=== PATIENT | male | born 1945 | race Caucasian/White ===

== ENCOUNTER 2023-04-07 00:04 | Observation (INO) | payer MEDICARE, SELFPAY ==
[2023-04-07] VITALS (9 sets, daily range): BP systolic 107–167; BP diastolic 71–88; PULSE 54–70; RESP 10–20; TEMP 36.5–37.2; O2SAT 95–98; BMI 32.3; BMI 34.0
--- NOTE | 2023-04-07 00:27 | ED.UPPEXIN1 ---
HPI - Extremity Injury (Upper) General Chief Complaint: Abdominal Pain Stated Complaint: ABD PAIN Time Seen by Provider: 04/07/23 00:26 Source: family Mode of arrival: Wheelchair Limitations: other Exam limitations: does not have in hearing aids History of Present Illness HPI narrative: complains of pain right flank. Pain varies. Started around 9pm. emesis x 1. Feels better now. No fever or urinary symptoms Related Data Home Medications Medication Instructions Recorded Confirmed isosorbide mononitrate 30 mg 30 mg PO DAILY 04/07/23 04/07/23 tablet,extended release 24 hr lisinopril 2.5 mg tablet 2.5 mg PO DAILY 04/07/23 04/07/23 metoprolol tartrate 25 mg tablet 25 mg PO DAILY 04/07/23 04/07/23 simvastatin 20 mg tablet 20 mg PO DAILY 04/07/23 04/07/23 Previous Rx's Medication Instructions Recorded cephalexin 250 mg capsule 250 mg PO DAILY 30 days #30 caps 04/07/23 solifenacin 10 mg tablet (Vesicare) 10 mg PO DAILY #20 tabs 04/07/23 Allergies Allergy/AdvReac Type Severity Reaction Status Date / Time No Known Drug Allergies Allergy Verified 04/07/23 00:14 Review of Systems ROS Status of ROS 10 or more systems reviewed and unremarkable except as noted in history and below [facility] Medical History Surgical History (~03/2019) Social History Within the past year, how often did you have a drink containing alcohol: never Within the past year, how often did you have six or more drinks on one occasion: never Score interpretation: A score less than 4 is consistent with normal alcohol consumption. 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 Known occupational exposures/hazards: No Highest level of school completed/degree received: high school graduate Do you want help with school or training: No Are you now , , , , never or living with a partner: In a typical week, how many times do you talk on the telephone with family, friends, or neighbors: 3 or more times per week How often do you get together with friends or relatives: 3 or more times per week How often do you attend rastafarian or gnosticism services: never Do you belong to any clubs or organizations such as rastafarian groups unions, fraternal or athletic groups, or school groups: no Total score: 2 Score interpretation: A score of greater than or equal to 2 indicates the lowest level of social isolation. Little interest or pleasure in doing things: not at all Feeling down, depressed, or hopeless: not at all Feel stressed/tense/nervous/anxious/difficulty sleeping: not at all Due to disability, difficulty making decisions: No Do you think of yourself as: straight/heterosexual Gender Identity: male Exam Constitutional Vital Signs, click to edit/add: Last Vital Signs Temp 97.7 F 04/07/23 13:00 Pulse 60 04/07/23 13:00 Resp 18 04/07/23 13:00 BP 157/85 H 04/07/23 13:00 Pulse Ox 96 04/07/23 13:00 O2 Del Method Room Air 04/07/23 13:00 Common normals: no apparent distress, average body habitus, oriented x3, no limitations and healthy appearing HENMT Common normals: normocephalic and head/scalp atraumatic Eye Common normals: EOMs intact bilaterally and conjunctivae normal Respiratory Common normals: normal respiratory effort, no retractions, no use of accessory muscles and clear to auscultation bilaterally Cardio Common normals: regular rate, regular rhythm, S1 normal heart sound and S2 normal heart sound GI Other: right flank tenderness Extremity Common normals: normal to inspection and full ROM Neuro Common normals: oriented x3, moves all extremities and no focal motor deficits Psych Appearance: grossly normal Course Course Hospital Course: taken to OR for stent placement and cysto, discharged home today to follow up with urology 1-2 weeks. Vital Signs Vital signs: Vital Signs Temperature 98.9 F 04/07/23 00:14 Pulse Rate 68 04/07/23 00:14 Respiratory Rate 18 04/07/23 00:14 Blood Pressure 167/87 H 04/07/23 00:14 Pulse Oximetry 98 04/07/23 00:14 Oxygen Delivery Method Room Air 04/07/23 00:14 Temperature 97.7 F 04/07/23 13:00 Pulse Rate 60 04/07/23 13:00 Respiratory Rate 18 04/07/23 13:00 Blood Pressure 157/85 H 04/07/23 13:00 Pulse Oximetry 96 04/07/23 13:00 Oxygen Delivery Method Room Air 04/07/23 13:00 MDM - Extremity Injury (Upper) MDM Narrative Medical decision making narrative: patient presents with acute right flank pain. No past history of stones. CT demonstrates 8mm right proximal stone with hydronephrosis. UA without evidence of infection and patient is afebrile. Pain control fair with Toradol enough wherein patient could rest. Discussed with Dr Chung and he is in agreement with consulting on the patient as he feels he will need a stent. Hospitalist also in agreement about the admission Lab Data Labs: Lab Results 04/07/23 04/07/23 04/07/23 Range/Units 00:35 03:13 05:10 WBC 7.6 8.7 (4.0-11.0) 10^3/uL RBC 5.27 4.74 (4.70-6.10) 10^6/uL Hgb 16.5 14.7 (14.0-18.0) g/dL Hct 48.1 43.3 (42.0-54.0) % MCV 91.3 91.4 (80.0-94.0) fL MCH 31.3 31.0 (25.9-34.0) pg MCHC 34.3 33.9 (29.9-35.2) g/dL RDW 12.9 12.8 (11.0-15.0) % Plt Count 175 157 (150-450) 10^3/uL MPV 9.6 9.8 (9.5-13.5) fL Neut % (Auto) 70.7 82.0 H (43.0-75.0) % Lymph % (Auto) 20.1 L 11.0 L (20.5-60.0) % [place] % (Auto) 6.7 5.9 (1.7-12.0) % Eos % (Auto) 1.6 0.1 L (0.9-7.0) % Baso % (Auto) 0.5 0.5 (0.2-2.0) % Neut # (Auto) 5.4 7.1 H (1.4-6.5) 10^3/uL Lymph # (Auto) 1.5 1.0 L (1.2-3.8) 10^3/uL [place] # (Auto) 0.5 0.5 (0.3-0.8) 10^3/uL Eos # (Auto) 0.1 0.0 (0.0-0.7) 10^3/uL Baso # (Auto) 0.0 0.0 (0.0-0.1) 10^3/uL Abs Immat Gran (auto) 0.03 0.04 H (0.00-0.03) 10^3/uL Imm/Tot Granulo (auto) 0.4 0.5 (0.0-0.5) % Sodium 141 141 (136-145) mmol/L Potassium 4.4 4.4 (3.5-5.1) mmol/L Chloride 106 108 H (98-107) mmol/L Carbon Dioxide 24.6 24.3 (21.0-32.0) mmol/L Anion Gap 14.8 13.1 BUN 32.0 H 29.0 H (7.0-18.0) mg/dL Creatinine 1.64 H 1.29 (0.70-1.30) mg/dL Est GFR ( Amer) 50 L >60 (>=60) Est GFR (Non-Af Amer) 41 L 54 L (>=60) BUN/Creatinine Ratio 19.5 22.5 Glucose 142 H 125 H (74-106) mg/dL Lactate 1.6 (0.4-2.0) mmol/L Calcium 9.4 8.6 (8.5-10.1) mg/dL Total Bilirubin 0.5 0.5 (0.2-1.0) mg/dL AST 24 24 (15-37) U/L ALT 47 40 (16-63) U/L Alkaline Phosphatase 74 58 (46-116) U/L Total Protein 7.8 6.8 (6.4-8.2) g/dL Albumin 4.5 3.7 (3.4-5.0) g/dL Globulin 3.3 3.1 g/dL Albumin/Globulin Ratio 1.4 1.2 Lipase 240.0 (73.0-393.0) U/L Urine Color Yellow (YELLOW) Urine Clarity Clear (CLEAR) Urine pH 5.5 (5.0-9.0) Ur Specific [place] >=1.030 A (1.005-1.025) Urine Protein Negative (NEG/TRACE) mg/dL Urine Glucose (UA) Negative (NEGATIVE) mg/dL Urine Ketones Negative (NEGATIVE) mg/dL Urine Occult Blood Large A (NEGATIVE) Urine Nitrite Negative (NEGATIVE) Urine Bilirubin Negative (NEGATIVE) Urine Urobilinogen 0.2 (0.2-1.0) EU/dL Ur Leukocyte Esterase Negative (NEGATIVE) Urine RBC >100 A (0-2) #/HPF Urine WBC 0-2 A (NONE SEEN) #/HPF Ur Squamous Epith Cells Rare (NONE/RARE) #/LPF Urine Crystals None seen (None Seen) #/HPF Urine Bacteria None seen (NONE SEEN) #/HPF Urine Casts None seen (NONE SEEN) #/LPF Urine Mucus None seen (NONE SEEN) Ur Culture Indicated? No Discharge Plan Discharge Chief Complaint: Abdominal Pain Clinical Impression: Calculus of kidney, Hydronephrosis of right kidney Patient Disposition: Admitted as Observation Condition: Good Discharge Date/Time: 04/07/23 05:38
--- NOTE | 2023-04-07 00:36 | PC.NURSE ---
pt presents to ED c/o right sided flank pain as well as RLQ pain. pain started 2 hours authorization nurse. n/v authorization nurse. patient states he is in a lot of pain and uncomfortable and has shooting pain down his side. no hx of kidney stones. no previous abdominal surgeries. no meds authorization nurse.
--- NOTE | 2023-04-07 00:41 | CT_ITS ---
[address] [address] Patient Name: JAMAICA CORRIGAN MRN: [id number] date: 1945 Sex: M Assigned Patient Location: ER Current Patient Location: Accession/Order Number: [id number] Exam Date: 04/07/2023 00:43 Report Date: 04/07/2023 01:19 At the request of: CATHI SHERMAN Procedure: CT abdomen pelvis wo con EXAMINATION: CT abdomen pelvis wo con HISTORY: flank pain COMPARISON: No relevant comparison available. TECHNIQUE: Axial, Coronal, and Sagittal images were created without IV contrast. Dose reduction techniques were achieved by using automated exposure control and/or adjustment of mA and/or kV according to patient size and/or use of iterative reconstruction technique. FINDINGS: LUNG BASES: No visible pulmonary or pleural disease. LIVER: No enlargement, atrophy, abnormal density, or significant focal lesion. BILIARY: No dilatation or calcification. PANCREAS: No lesion, fluid collection, ductal dilatation, or atrophy. SPLEEN: No enlargement or focal lesion. ADRENALS: No mass or enlargement. KIDNEYS: Moderate right hydroureteronephrosis extending to a 8 x 7 mm proximal ureterolith axial image 86. Normal left. BOWEL/MESENTERY: Mild colonic diverticulosis without evidence of acute diverticulitis. Nonobstructive bowel gas pattern. AORTA/VASCULAR: No aortic aneurysm. Mild atherosclerosis RETROPERITONEUM: No mass or adenopathy. LYMPH NODES: No adenopathy. URINARY BLADDER: No visible focal wall thickening, lesion, or calculus. PELVIC ORGANS: Mildly enlarged prostate gland measuring 5.4 cm transversely ABDOMINAL WALL: No mass or hernia. BONES: No bony lesion or fracture. OTHER: Negative. CT/CT abdomen pelvis wo con IMPRESSION: 8 mm proximal right ureterolith with moderate associated obstructive uropathy Electronically authenticated by: SLOAN SWANSON Date: 04/07/2023 01:19
[2023-04-07 00:51] LABS: Basophils Percent Auto 0.5 % (0.2-2.0); Eosinophils Absolute Auto 0.1 10^3/uL (0.0-0.7); Eosinophils Percent Auto 1.6 % (0.9-7.0); Hematocrit 48.1 % (42.0-54.0); Hemoglobin 16.5 g/dL (14.0-18.0); Immature Granulocytes Abs Auto 0.03 10^3/uL (0.00-0.03); Immature Granulocytes Pct Auto 0.4 % (0.0-0.5); Lymphocytes Absolute Auto 1.5 10^3/uL (1.2-3.8); Lymphocytes Percent Auto 20.1 % (20.5-60.0); Mean Corpuscular HGB Conc 34.3 g/dL (29.9-35.2); Mean Corpuscular Hemoglobin 31.3 pg (25.9-34.0); Mean Corpuscular Volume 91.3 fL (80.0-94.0); Mean Platelet Volume 9.6 fL (9.5-13.5); Monocytes Absolute Auto 0.5 10^3/uL (0.3-0.8); Monocytes Percent Auto 6.7 % (1.7-12.0); Neutrophils Absolute Auto 5.4 10^3/uL (1.4-6.5); Neutrophils Percent Auto 70.7 % (43.0-75.0); Platelet Count 175 10^3/uL (150-450); Red Blood Count 5.27 10^6/uL (4.70-6.10); Red Cell Distribution Width 12.9 % (11.0-15.0); White Blood Count 7.6 10^3/uL (4.0-11.0)
[2023-04-07] MEDS: 0.9 % SODIUM CHLORIDE 1,000 ML 999 ML IV (00:57)
[2023-04-07 01:32] LABS: Alanine Aminotransferase 47 U/L (16-63); Albumin Globulin Ratio 1.4; Albumin Level 4.5 g/dL (3.4-5.0); Alkaline Phosphatase 74 U/L (46-116); Anion Gap 14.8; Aspartate Amino Transferase 24 U/L (15-37); BUN Creatinine Ratio 19.5; Bilirubin Total 0.5 mg/dL (0.2-1.0); Calcium 9.4 mg/dL (8.5-10.1); Carbon Dioxide 24.6 mmol/L (21.0-32.0); Chloride 106 mmol/L (98-107); Estimated GFR (African America 50 (>=60); Estimated GFR (Non-African Ame 41 (>=60); Globulin 3.3 g/dL; Glucose 142 mg/dL (74-106); Potassium 4.4 mmol/L (3.5-5.1); Sodium 141 mmol/L (136-145); Total Protein 7.8 g/dL (6.4-8.2)
[2023-04-07 01:34] LABS: Lactate/Lactic Acid 1.6 mmol/L (0.4-2.0)
[2023-04-07 03:29] LABS: Bilirubin Urine NEGATIVE (NEGATIVE); Blood Urine LARGE (NEGATIVE); Clarity Urine CLEAR (CLEAR); Color Urine YELLOW (YELLOW); Glucose Urine UA NEGATIVE (NEGATIVE); Ketones Urine NEGATIVE (NEGATIVE); Leukocyte Esterase Urine NEGATIVE (NEGATIVE); Nitrite Urine NEGATIVE (NEGATIVE); Protein Urine NEGATIVE (NEG/TRACE); Specific Gravity Urine >=1.030 (1.005-1.025); Urobilinogen Urine 0.2 EU/dL (0.2-1.0); pH Urine 5.5 (5.0-9.0)
[2023-04-07 03:30] LABS: Urine Microscopic Indicated YES
[2023-04-07] MEDS: KETOROLAC TROMETHAMINE 30 MG/ML VIAL IVP (03:31)
[2023-04-07 03:34] LABS: Bacteria Urine NONE SEEN #/HPF (NONE SEEN); Crystals Seen? None Seen #/HPF (None Seen); Mucus Urine NONE SEEN (NONE SEEN); RBC Urine >100 #/HPF (0-2); Squamous Epithelial Cell Urine RARE #/LPF (NONE/RARE); WBC Urine 0-2 #/HPF (NONE SEEN)
[2023-04-07 03:35] LABS: Cast Seen? NONE SEEN #/LPF (NONE SEEN); Urine Culture Indicated NO
[2023-04-07 05:19] LABS: Basophils Percent Auto 0.5 % (0.2-2.0); Eosinophils Percent Auto 0.1 % (0.9-7.0); Hematocrit 43.3 % (42.0-54.0); Hemoglobin 14.7 g/dL (14.0-18.0); Immature Granulocytes Abs Auto 0.04 10^3/uL (0.00-0.03); Immature Granulocytes Pct Auto 0.5 % (0.0-0.5); Mean Corpuscular HGB Conc 33.9 g/dL (29.9-35.2); Mean Corpuscular Volume 91.4 fL (80.0-94.0); Mean Platelet Volume 9.8 fL (9.5-13.5); Monocytes Absolute Auto 0.5 10^3/uL (0.3-0.8); Monocytes Percent Auto 5.9 % (1.7-12.0); Neutrophils Absolute Auto 7.1 10^3/uL (1.4-6.5); Platelet Count 157 10^3/uL (150-450); Red Blood Count 4.74 10^6/uL (4.70-6.10); Red Cell Distribution Width 12.8 % (11.0-15.0); White Blood Count 8.7 10^3/uL (4.0-11.0)
[2023-04-07 05:48] LABS: Alanine Aminotransferase 40 U/L (16-63); Albumin Globulin Ratio 1.2; Albumin Level 3.7 g/dL (3.4-5.0); Alkaline Phosphatase 58 U/L (46-116); Anion Gap 13.1; Aspartate Amino Transferase 24 U/L (15-37); BUN Creatinine Ratio 22.5; Bilirubin Total 0.5 mg/dL (0.2-1.0); Calcium 8.6 mg/dL (8.5-10.1); Carbon Dioxide 24.3 mmol/L (21.0-32.0); Chloride 108 mmol/L (98-107); Estimated GFR (African America >60 (>=60); Estimated GFR (Non-African Ame 54 (>=60); Globulin 3.1 g/dL; Glucose 125 mg/dL (74-106); Potassium 4.4 mmol/L (3.5-5.1); Sodium 141 mmol/L (136-145); Total Protein 6.8 g/dL (6.4-8.2)
[2023-04-07] MEDS: 0.9 % SODIUM CHLORIDE 1,000 ML 100 ML IV ×2 (06:38→11:25)
[2023-04-07] MEDS: TAMSULOSIN HCL 0.4 MG CAPSULE PO (08:28)
--- NOTE | 2023-04-07 09:22 | P.HP_ITS ---
H&P: HPI History of Present Illness Chief complaint: ABD PAIN CALCULUS OF RT KIDNEY [facility] Medical History (Updated 04/07/23 @ 04:39 by Horacio Walton MD) Surgical History (Updated 04/07/23 @ 00:27 by Carolyne Ames) (~03/2019) Social History (Updated 04/07/23 @ 06:23 by Christa Finney) Within the past year, how often did you have a drink containing alcohol: never Within the past year, how often did you have six or more drinks on one occasion: never Score interpretation: A score less than 4 is consistent with normal alcohol consumption. 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 Known occupational exposures/hazards: No Highest level of school completed/degree received: high school graduate Do you want help with school or training: No Are you now , , , , never or living with a partner: In a typical week, how many times do you talk on the telephone with family, friends, or neighbors: 3 or more times per week How often do you get together with friends or relatives: 3 or more times per week How often do you attend rastafarian or religion services: never Do you belong to any clubs or organizations such as rastafarian groups unions, fraternal or athletic groups, or school groups: no Total score: 2 Score interpretation: A score of greater than or equal to 2 indicates the lowest level of social isolation. Little interest or pleasure in doing things: not at all Feeling down, depressed, or hopeless: not at all Feel stressed/tense/nervous/anxious/difficulty sleeping: not at all Due to disability, difficulty making decisions: No Do you think of yourself as: straight/heterosexual Gender Identity: male Meds Home Medications and Allergies Home Medications Medication Instructions Recorded Confirmed Type isosorbide mononitrate 30 mg 30 mg PO DAILY 04/07/23 04/07/23 History tablet,extended release 24 hr lisinopril 2.5 mg tablet 2.5 mg PO DAILY 04/07/23 04/07/23 History metoprolol tartrate 25 mg tablet 25 mg PO DAILY 04/07/23 04/07/23 History simvastatin 20 mg tablet 20 mg PO DAILY 04/07/23 04/07/23 History Allergies Allergy/AdvReac Type Severity Reaction Status Date / Time No Known Drug Allergies Allergy Verified 04/07/23 00:14 Exam Constitutional Vital Signs, click to edit/add: Last Vital Signs Temp 97.7 F 04/07/23 05:48 Pulse 70 04/07/23 05:48 Resp 16 04/07/23 05:48 BP 147/88 H 04/07/23 05:48 Pulse Ox 95 04/07/23 05:48 O2 Del Method Room Air 04/07/23 05:48 Results Labs Labs: Short CBC 04/07/23 04/07/23 Range/Units 00:35 05:10 WBC 7.6 8.7 (4.0-11.0) 10^3/uL Hgb 16.5 14.7 (14.0-18.0) g/dL Hct 48.1 43.3 (42.0-54.0) % Plt Count 175 157 (150-450) 10^3/uL BMP 04/07/23 04/07/23 00:35 05:10 Sodium 141 141 Potassium 4.4 4.4 Chloride 106 108 H Carbon Dioxide 24.6 24.3 BUN 32.0 H 29.0 H Creatinine 1.64 H 1.29 Glucose 142 H 125 H Calcium 9.4 8.6 Liver Function 04/07/23 04/07/23 Range/Units 00:35 05:10 Total Bilirubin 0.5 0.5 (0.2-1.0) mg/dL AST 24 24 (15-37) U/L ALT 47 40 (16-63) U/L Alkaline Phosphatase 74 58 (46-116) U/L Albumin 4.5 3.7 (3.4-5.0) g/dL Urine 04/07/23 Range/Units 03:13 Urine Color Yellow (YELLOW) Urine Clarity Clear (CLEAR) Urine pH 5.5 (5.0-9.0) Ur Specific [place] >=1.030 A (1.005-1.025) Urine Protein Negative (NEG/TRACE) mg/dL Urine Glucose (UA) Negative (NEGATIVE) mg/dL
--- NOTE | 2023-04-07 12:23 | PM.CN ---
Consult Note: HPI Data of Consult Patient: new to practice Consult date: 04/07/23 Requesting Physician: Awilda Oden DO Primary Care Provider: BETINA SAMPSON Consult Narrative Reason for consult: obstructing right ureteral calculus Narrative: gentleman developed acute severe right flank pain and presented to the emergency room last night. CT scan revealed an 8-9 mm right mid to proximal ureteral calculus with ipsilateral hydronephrosis. The patient had no fevers white count or infected urine. He was admitted for pain management and urologic evaluation. Upon questioning him and his further, they state that he has had this right flank pain on and off for the last couple years. He always thought that it was simply from gas. Going to the restroom and positional change seemed to make things a bit better. He denies having had any stones in the past. He voids well and has no history of recurrent urinary infections. cc:: CC: Awilda Oden DO Review of Systems ROS Status of ROS 10 or more systems reviewed and unremarkable except as noted in history and below [facility] Medical History Surgical History (~03/2019) Social History Within the past year, how often did you have a drink containing alcohol: never Within the past year, how often did you have six or more drinks on one occasion: never Score interpretation: A score less than 4 is consistent with normal alcohol consumption. 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 [employer] Known occupational exposures/hazards: No Highest level of school completed/degree received: high school graduate Do you want help with school or training: No Are you now , , , , never or living with a partner: In a typical week, how many times do you talk on the telephone with family, friends, or neighbors: 3 or more times per week How often do you get together with friends or relatives: 3 or more times per week How often do you attend yazidi or caodaism services: never Do you belong to any clubs or organizations such as yazidi groups unions, fraternal or athletic groups, or school groups: no Total score: 2 Score interpretation: A score of greater than or equal to 2 indicates the lowest level of social isolation. Little interest or pleasure in doing things: not at all Feeling down, depressed, or hopeless: not at all Feel stressed/tense/nervous/anxious/difficulty sleeping: not at all Due to disability, difficulty making decisions: No Do you think of yourself as: straight/heterosexual Gender Identity: male Meds Home Medications and Allergies Home Medications Medication Instructions Recorded Confirmed Type isosorbide mononitrate 30 mg 30 mg PO DAILY 04/07/23 04/07/23 History tablet,extended release 24 hr lisinopril 2.5 mg tablet 2.5 mg PO DAILY 04/07/23 04/07/23 History metoprolol tartrate 25 mg tablet 25 mg PO DAILY 04/07/23 04/07/23 History simvastatin 20 mg tablet 20 mg PO DAILY 04/07/23 04/07/23 History Allergies Allergy/AdvReac Type Severity Reaction Status Date / Time No Known Drug Allergies Allergy Verified 04/07/23 00:14 Exam Narrative Exam Narrative: he is resting comfortably in the hospital [facility] bed. Alex is in no acute distress. His vital signs are stable. His abdomen is soft and mildly tender in the right CVA. No masses are palpable. External genitalia are unremarkable. Constitutional Vital Signs, click to edit/add: Last Vital Signs Temp 97.7 F 04/07/23 05:48 Pulse 70 04/07/23 05:48 Resp 16 04/07/23 05:48 BP 147/88 H 04/07/23 05:48 Pulse Ox 95 04/07/23 05:48 O2 Del Method Room Air 04/07/23 05:48 Results Labs Labs: Short CBC 04/07/23 04/07/23 Range/Units 00:35 05:10 WBC 7.6 8.7 (4.0-11.0) 10^3/uL Hgb 16.5 14.7 (14.0-18.0) g/dL Hct 48.1 43.3 (42.0-54.0) % Plt Count 175 157 (150-450) 10^3/uL BMP 04/07/23 04/07/23 00:35 05:10 Sodium 141 141 Potassium 4.4 4.4 Chloride 106 108 H Carbon Dioxide 24.6 24.3 BUN 32.0 H 29.0 H Creatinine 1.64 H 1.29 Glucose 142 H 125 H Calcium 9.4 8.6 Liver Function 04/07/23 04/07/23 Range/Units 00:35 05:10 Total Bilirubin 0.5 0.5 (0.2-1.0) mg/dL AST 24 24 (15-37) U/L ALT 47 40 (16-63) U/L Alkaline Phosphatase 74 58 (46-116) U/L Albumin 4.5 3.7 (3.4-5.0) g/dL Urine 04/07/23 Range/Units 03:13 Urine Color Yellow (YELLOW) Urine Clarity Clear (CLEAR) Urine pH 5.5 (5.0-9.0) Ur Specific [place] >=1.030 A (1.005-1.025) Urine Protein Negative (NEG/TRACE) mg/dL Urine Glucose (UA) Negative (NEGATIVE) mg/dL Assessment and Plan Assessment and Plan (1) Ureterolithiasis: Assessment and Plan: this gentleman has a 8-9 mm right mid to proximal ureteral calculus causing pain and hydronephrosis. It is possible that this has been bothering him on and off for the last couple years. He needs to get cystoscopy and right stent placement done to decompress his kidney and relieve his pain. Is getting added on semi-urgently for today for cystoscopy and right stent placement. After this is done, he then will need to decompress and cooled down for a few weeks. We will have to bring him back for either ESWL and stent removal or ureteroscopic stone manipulation with laser and stent removal. Over 30 minutes of clinical time was spent talking with the Emergency Room doctor, the nursing staff, the patient and his , and reviewing his chart and CAT scan. Thank you for letting me take part in his care. (2) Hydronephrosis of right kidney: (3) Flank pain:
--- NOTE | 2023-04-07 12:27 | PC.NURSE ---
Ancef 2 grams IV given per Anes pre-op at 1159
--- NOTE | 2023-04-07 12:29 | P.URON_ITS ---
Urology Surgery Operative Note Operative Note Procedure Date: 04/07/23 Time Out Performed: yes Pre-op Diagnosis: obstructing right ureteral calculus and flank pain Post-op Diagnosis: same Procedures performed: #1. Cystoscopy. #2. Placement of 6 Polish variable length right ureteral stent. Anesthesia: other (Gen. by LMA) Primary Surgeon: Zachary Chung Complications: none Estimated blood loss (mL): 5 Findings: obstructing stone at L5. Specimens: none Indications for Procedures: this gentleman has an 8-9 mm right mid to proximal ureteral calculus and ipsilateral hydronephrosis. His pain is not controlled well. He now presents for cystoscopy and right stent placement. He has signed an informed consent after all the risks were explained to him. Detailed description of Procedure: The patient was brought to the operating room and placed on the operating room table in the supine position. SCDs were placed on the lower extremities and turned on and functioning during the entire case. Timeout was done by all parties in the room. We all agreed upon the patient's identification and the planned procedures for this patient. Genn. anesthesia was then administered. The patient was then repositioned into the modified dorsal lithotomy position. All pressure points were satisfactorily padded. Genitalia were sterilely prepped and draped in the usual fashion.at this time I then started by passing a 22 Polish Olympus cystoscope per urethra and into the bladder. The anterior urethra was normal. The prostatic urethra showedd a large high median lobe. Panendoscopy in the bladder showed high-grade bladder damage with thick trabeculation and diverticuli formation. No evidence of bladder tumors was seen. While using fluoroscopy I could see the stone at the L5 level. I then passed a Glidewire through the scope and cannulated the right ureter. There was J hooking of the distal ureter and it was difficult to get the wire beyond this but eventually I did. When the wire arrived at the stone it buckled. Numerous attempts had to be made until finally the wire was able to ascend beyond the stone and into the kidney. There was an immediate E flux of cloudy urine under high-pressure down the ureter and into the bladder. I then slid a 6 Polish variable length ureteral stent over the wire and up the ureter. Once it got to the stone the stone were arose a few centimeters as the stent was getting past but then the stone and stopped and the stent slid proximal to the stone and into the kidney. The wire was removed and there were good curls in the kidney renal pelvis and in the bladder. The stone had come back down to the L5 level. At this time there was a high-pressure E flux of cloudy urine down through and around the stent into the bladder. The bladder was drained of its contents and the scope was then removed. He was then transferred to a [facility] bed and wheeled to PACU in stable condition. The plan will be to bring him back in a few weeks after he decompresses and do ESWL versus laser lithotripsy.
[2023-04-07] MEDS: HYOSCYAMINE SULFATE 0.125 MG TAB.SUBL 0.25 MG SL (14:13)
--- NOTE | 2023-04-07 14:57 | PM.HP ---
H&P: HPI History of Present Illness Chief complaint: ABD PAIN CALCULUS OF RT KIDNEY Narrative: patient is a 77-year-old male with past medical history of coronary artery disease status post stent placement three years ago, hypertension who presented to the emergency department with a several day history of right flank pain. Patient was found to have an 8 mm right ureter obstructed stone and urology was consult after admission. Patient also had blood noted on urinalysis. Patient denies any further pain fevers chills at this time. He also denies ever having a kidney stone in the past. Review of Systems ROS Narrative ROS: a complete review of systems were reviewed with patient and are positive as below or listed in History of Chief Complaint. General: no fever, chills, night sweats Head: no headache, trauma, visual changes, nausea or vomiting Skin: no reported rashes, itching or sores Eyes: no blurriness of vision Ears: no reported hearing loss, vertigo, earache, or tinnitus Throat: no sore throat, hoarseness, swelling of neck, or tongue pain Heart: no chest pain Lungs: no shortness of breath or cough GI: no diarrhea or vomiting/nausea Urinary: no urinary urgency, frequency or pain Neuro: no numbness or tingling HEM: no bleeding issues or bruising ENDO: no thyroid problems Psych: no anxiety or depression [facility] Medical History Surgical History (~03/2019) Social History Within the past year, how often did you have a drink containing alcohol: never Within the past year, how often did you have six or more drinks on one occasion: never Score interpretation: A score less than 4 is consistent with normal alcohol consumption. Smoking status: Never smoker Second hand tobacco smoke exposure: No Non-prescribed substance use: denies use Previous occupational history: [employer] Known occupational exposures/hazards: No Highest level of school completed/degree received: high school graduate Do you want help with school or training: No Are you now , , , , never or living with a partner: In a typical week, how many times do you talk on the telephone with family, friends, or neighbors: 3 or more times per week How often do you get together with friends or relatives: 3 or more times per week How often do you attend hoahaoism or adventist services: never Do you belong to any clubs or organizations such as hoahaoism groups unions, fraternal or athletic groups, or school groups: no Total score: 2 Score interpretation: A score of greater than or equal to 2 indicates the lowest level of social isolation. Little interest or pleasure in doing things: not at all Feeling down, depressed, or hopeless: not at all Feel stressed/tense/nervous/anxious/difficulty sleeping: not at all Due to disability, difficulty making decisions: No Do you think of yourself as: straight/heterosexual Gender Identity: male Meds Home Medications and Allergies Home Medications Medication Instructions Recorded Confirmed Type cephalexin 250 mg capsule 250 mg PO DAILY 30 days #30 caps 04/07/23 Rx isosorbide mononitrate 30 mg 30 mg PO DAILY 04/07/23 04/07/23 History tablet,extended release 24 hr lisinopril 2.5 mg tablet 2.5 mg PO DAILY 04/07/23 04/07/23 History metoprolol tartrate 25 mg tablet 25 mg PO DAILY 04/07/23 04/07/23 History simvastatin 20 mg tablet 20 mg PO DAILY 04/07/23 04/07/23 History solifenacin 10 mg tablet (Vesicare) 10 mg PO DAILY #20 tabs 04/07/23 Rx Allergies Allergy/AdvReac Type Severity Reaction Status Date / Time No Known Drug Allergies Allergy Verified 04/07/23 00:14 Exam Narrative Exam Narrative: General: Patient is alert, and oriented to person, place and time with normal affect, proper hygiene Skin: no visible rashes, or ulcers Head: atraumatic, acephalic Eyes: PERRLA, no nystagmus present, conjunctiva clear, no scleral icterus Heart: Normal rate and rhythm, no murmurs/rubs/gallops Lungs: no audible wheezes, crackles and normal breath sounds all lung neumann Abdomen: Normal audible bowel sounds, no distension, No palpable masses, no organomegaly, no rebound/guarding/ or rigidity Musculoskeletal: muscle atrophy noted, ROM is limited due to being in hospital bed, no swelling bilateral lower extremities Vascular: Normal carotid, radial, femoral, posterior tibial, and dorsalis pedis pulses Lymph: no supraclavicular, axillary, or anterior/posterior cervical adenopathy Neuro: CN II-X grossly intact, normal sensation upper and lower extremities Constitutional Vital Signs, click to edit/add: Last Vital Signs Temp 97.7 F 04/07/23 13:00 Pulse 60 04/07/23 13:00 Resp 18 04/07/23 13:00 BP 157/85 H 04/07/23 13:00 Pulse Ox 96 04/07/23 13:00 O2 Del Method Room Air 04/07/23 13:00 Results Labs Labs: Short CBC 04/07/23 04/07/23 Range/Units 00:35 05:10 WBC 7.6 8.7 (4.0-11.0) 10^3/uL Hgb 16.5 14.7 (14.0-18.0) g/dL Hct 48.1 43.3 (42.0-54.0) % Plt Count 175 157 (150-450) 10^3/uL BMP 04/07/23 04/07/23 00:35 05:10 Sodium 141 141 Potassium 4.4 4.4 Chloride 106 108 H Carbon Dioxide 24.6 24.3 BUN 32.0 H 29.0 H Creatinine 1.64 H 1.29 Glucose 142 H 125 H Calcium 9.4 8.6 Liver Function 04/07/23 04/07/23 Range/Units 00:35 05:10 Total Bilirubin 0.5 0.5 (0.2-1.0) mg/dL AST 24 24 (15-37) U/L ALT 47 40 (16-63) U/L Alkaline Phosphatase 74 58 (46-116) U/L Albumin 4.5 3.7 (3.4-5.0) g/dL Urine 04/07/23 Range/Units 03:13 Urine Color Yellow (YELLOW) Urine Clarity Clear (CLEAR) Urine pH 5.5 (5.0-9.0) Ur Specific [place] >=1.030 A (1.005-1.025) Urine Protein Negative (NEG/TRACE) mg/dL Urine Glucose (UA) Negative (NEGATIVE) mg/dL Assessment and Plan Assessment and Plan (1) Ureterolithiasis: Assessment and Plan: this gentleman has a 8-9 mm right mid to proximal ureteral calculus causing pain and hydronephrosis. It is possible that this has been bothering him on and off for the last couple years. He needs to get cystoscopy and right stent placement done to decompress his kidney and relieve his pain. Is getting added on semi-urgently for today for cystoscopy and right stent placement. After this is done, he then will need to decompress and cooled down for a few weeks. We will have to bring him back for either ESWL and stent removal or ureteroscopic stone manipulation with laser and stent removal. Over 30 minutes of clinical time was spent talking with the Emergency Room doctor, the nursing staff, the patient and his , and reviewing his chart and CAT scan. Thank you for letting me take part in his care. (2) Hydronephrosis of right kidney: (3) Flank pain: (4) Stented coronary artery: Onset Date: ~03/2019 Plan patient was admitted to the hospital in observation status, urology consult for her cystoscopy with stent placement todayfor right 8mm ureter stone with obstruction, also placed on Flomax and as needed pain control.. Patient was nothing by mouth, IV fluid hydration and will continue home medications for his hypertension and hyperlipidemia. Patient is a full code observation status and is not expected to stay more than two midnights
[2023-04-07] MEDS: CEFAZOLIN SODIUM/DEXTROSE,ISO 2 GM/50 ML PIGGYBACK IV (18:21)
--- NOTE | 2023-04-07 19:16 | PC.NURSE ---
iv removed to right antecubital. Discharge instructions given
--- NOTE | 2023-04-07 19:35 | PC.NURSE ---
taken to private car via wheel chair per nurse aide.
--- NOTE | 2023-04-11 14:40 | CM.DCFOLLOWU ---
Person spoke with: patient's How are you feeling? patient is getting better How is your pain? pain is getting better Did you understand your discharge instructions? yes Do you have any questions about your discharge instructions? no Were you given any prescriptions at discharge? yes Were you able to get your prescriptions filled? yes Do you understand how to take your medications as ordered? yes Do you have any questions about your follow up appointment and do you plan to keep your follow up appointment? they were able to call and schedule follow up and 2nd procedure which is scheduled for 04/19/23 Is there anything else that you would like to discuss? no Questions/Comments/Concerns/Other:
--- NOTE | 2023-04-13 17:20 | PM.DS1 ---
DS: Providers Provider Date of admission: 04/07/23 05:41 Primary care physician: BETINA SAMPSON Admitting clinician: Awilda Oden Consults: 04/07/23 09:21 Consult to Urology Routine Consulting Provider: Zachary Chung Attending physician on discharge: Zachary Chung DS: Diagnosis Discharge Diagnosis (1) Ureterolithiasis: (2) Hydronephrosis of right kidney: (3) Flank pain: (4) Stented coronary artery: Onset Date: ~03/2019 DS: Summary Hospital Course Hospital Course: taken to OR for stent placement and cysto, discharged home today to follow up with urology 1-2 weeks. Status at Discharge Functional status at discharge: independent ambulation Overall status at discharge: patient is back to baseline Time Spent with Patient Time attestation: Total time spent providing and/or coordinating discharge services: Exam Constitutional Vital Signs, click to edit/add: Last Vital Signs Temp 97.7 F 04/07/23 13:00 Pulse 60 04/07/23 13:00 Resp 18 04/07/23 13:00 BP 157/85 H 04/07/23 13:00 Pulse Ox 96 04/07/23 13:00 O2 Del Method Room Air 04/07/23 13:00 Discharge Plan Discharge Disposition: Home, Self-Care (OBS FBC) Condition: Good Discharge Medications: New cephalexin 250 mg capsule 250 mg PO DAILY 30 Days Qty: 30 0RF solifenacin [Vesicare] 10 mg tablet 10 mg PO DAILY Qty: 20 1RF Continued isosorbide mononitrate 30 mg tablet extended release 24 hr 30 mg PO DAILY lisinopril 2.5 mg tablet 2.5 mg PO DAILY metoprolol tartrate 25 mg tablet 25 mg PO DAILY simvastatin 20 mg tablet 20 mg PO DAILY Activity: increase activity as tolerated Diet: advance to your usual diet Patient Instructions: Flank Pain (ED) Follow Up Appointments: follow up with urology 1-2 weeks, will need to call sunday for appt Discharge Date/Time: 04/07/23 19:36
== END 2023-04-07 19:36 | disposition home or self-care (01) ==
LOC: ER 04:40 → MS 05:47
PROVIDERS: Urology; Admitting Provider Family Medicine; Emergency Provider Internal Medicine; PCP Family Medicine; Visit Provider Family Medicine
PROC: (CPT 52332; principal; 2023-04-07 11:30)
DX: N13.2 Hydronephrosis with renal and ureteral calculous obstruction (principal); I25.10 Atherosclerotic heart disease of native coronary artery without angina pectoris; Z95.5 Presence of coronary angioplasty implant and graft; I10 Essential (primary) hypertension; Z79.899 Other long term (current) drug therapy
CPT/HCPCS: 52332; 36415; 74176; 76000; 80053; 81001; 81003; 81015; 83605; 83690; 85025; 96361; 96374; 99285; C1874; G0378; J2704

== ENCOUNTER 2023-04-17 07:51 | Outpatient (OUT) | payer MEDICARE, SELFPAY ==
--- NOTE | 2023-04-17 08:02 | ECG_ITS ---
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
--- NOTE | 2023-04-17 08:42 | XR_ITS ---
The [address] [address] Patient Name: JAMAICA CORRIGAN MRN: [id number] date: 1945 Sex: M Assigned Patient Location: [facility] Current Patient Location: [facility] Accession/Order Number: [id number] Exam Date: 04/17/2023 09:09 Report Date: 04/17/2023 09:38 At the request of: MARCELLO ELAM Procedure: XR chest 2V EXAM: XR chest 2V HISTORY: CAD/ PRE OP EXAM COMPARISON: None. TECHNIQUE: PA and lateral views of the chest. FINDINGS: The cardiomediastinal silhouette is normal. No focal consolidation is identified. There is no pneumothorax. No pleural effusion is noted. The osseous structures are intact. XR/XR chest 2V IMPRESSION: No acute cardiopulmonary process. Electronically authenticated by: LISETH MCGUIRE Date: 04/17/2023 09:38
[2023-04-17 09:46] LABS: Anion Gap 12.9; BUN Creatinine Ratio 18.8; Calcium 9.6 mg/dL (8.5-10.1); Carbon Dioxide 29.2 mmol/L (21.0-32.0); Chloride 103 mmol/L (98-107); Estimated GFR (African America 55 (>=60); Estimated GFR (Non-African Ame 46 (>=60); Glucose 112 mg/dL (74-106); INR 1.06; Partial Thromboplastin Time 29.6 sec (22.3-36.2); Potassium 5.1 mmol/L (3.5-5.1); Prothrombin Time 11.2 sec (9.0-11.6); Sodium 140 mmol/L (136-145)
== END 2023-04-17 07:52 | disposition home or self-care (01) ==
LOC: PST 07:52
PROVIDERS: PCP Family Medicine; Visit Provider Urology
DX: Z01.812 Encounter for preprocedural laboratory examination (principal); Z01.810 Encounter for preprocedural cardiovascular examination; Z01.818 Encounter for other preprocedural examination; N20.0 Calculus of kidney; Z96.0 Presence of urogenital implants
CPT/HCPCS: 71046; 80048; 85025; 85610; 85730; 93005

== ENCOUNTER 2023-04-19 06:58 | Day surgery (SDC) | payer MEDICARE, SELFPAY ==
[2023-04-17 08:33] VITALS: BP 99/63; PULSE 57; RESP 16; TEMP 36.6; O2SAT 96; BMI 32.1
--- NOTE | 2023-04-19 07:10 | XR_ITS ---
The [address] [address] Patient Name: JAMAICA CORRIGAN MRN: [id number] date: 1945 Sex: M Assigned Patient Location: [facility] Current Patient Location: [facility] Accession/Order Number: [id number] Exam Date: 04/19/2023 07:02 Report Date: 04/19/2023 07:31 At the request of: MARCELLO ELAM Procedure: XR abdomen 1V EXAMINATION: XR abdomen 1V HISTORY: kidney stones COMPARISON: No relevant comparison available. FINDINGS: KIDNEY/URETER - RIGHT: Right double-J ureteral stent in normal position. 8 mm proximal ureterolith at the L4 transverse process KIDNEY/URETER - LEFT: No visible renal or ureteral calcifications. PELVIS: No visible ureteral calcifications. Any visible calcifications favor phleboliths. BOWEL: No abnormal dilation or deviation. BONES: No acute abnormality. Moderate degenerative changes of the spine and hips OTHER: Negative. No abnormal gaseous collections. XR/XR abdomen 1V IMPRESSION: Right double-J ureteral stent with proximal ureterolith Electronically authenticated by: SLOAN SWANSON Date: 04/19/2023 07:31
[2023-04-19 07:15] VITALS: BP 128/76; PULSE 61; RESP 18; TEMP 36.3; O2SAT 97; BMI 31.9
--- NOTE | 2023-04-19 07:36 | PC.NURSE ---
Patient states he has been taking is baby aspirin and forgot to stop taking it. Dr. Pacheco 's spoke to patient to remind him of the information that was given to him in the office and advised the importance to follow the instruction prior to the surgical procedure. Dr. Pacheco states to patient that it is a very big risk to proceed due to bleeding. Patient verbalizes understanding. Junior states his office will call to reschedule. Spoke to the to have her help him remember to stop taking aspirin for next scheduled procedure.
== END 2023-04-19 07:50 | disposition home or self-care (01) ==
LOC: SURGOUT 06:59
PROVIDERS: PCP Family Medicine; Visit Provider Urology
PROC: (CPT 50590; principal; 2023-04-19 08:30)
DX: N20.1 Calculus of ureter (principal); Z53.8 Procedure and treatment not carried out for other reasons; I10 Essential (primary) hypertension; E78.5 Hyperlipidemia, unspecified; I25.10 Atherosclerotic heart disease of native coronary artery without angina pectoris; Z95.5 Presence of coronary angioplasty implant and graft; Z79.899 Other long term (current) drug therapy; Z79.82 Long term (current) use of aspirin
CPT/HCPCS: 50590; 36415; 74018

== ENCOUNTER 2023-04-24 13:16 | Outpatient (OUT) | payer MEDICARE, SELFPAY | END 2023-04-24 13:17 | disposition home or self-care (01) | LOC: PST 13:16 | PROVIDERS: PCP Family Medicine; Visit Provider Urology | DX: Z01.818 Encounter for other preprocedural examination (principal); N20.1 Calculus of ureter ==

== ENCOUNTER 2023-05-03 10:34 | Day surgery (SDC) | payer MEDICARE, SELFPAY ==
[2023-05-03] VITALS (9 sets, daily range): BP systolic 133–161; BP diastolic 72–98; PULSE 56–63; RESP 6–20; TEMP 36.6; O2SAT 96–99; BMI 31.8
--- NOTE | 2023-05-03 08:00 | XR_ITS ---
The [address] [address] Patient Name: JAMAICA CORRIGAN MRN: [id number] date: 1945 Sex: M Assigned Patient Location: [facility] Current Patient Location: Accession/Order Number: [id number] Exam Date: 05/03/2023 10:48 Report Date: 05/03/2023 15:53 At the request of: MARCELLO ELAM Procedure: XR abdomen 1V EXAMINATION: XR abdomen 1V HISTORY: kidney stones COMPARISON: XR abdomen 04/19/2023 FINDINGS: KIDNEY/URETER - RIGHT: 5 x 8 mm stone within proximal ureter; unchanged. Stable ureteral stent. KIDNEY/URETER - LEFT: No visible renal or ureteral calcifications. PELVIS: No suspicious pelvic calcifications. BOWEL: No abnormal dilation or deviation. BONES: No acute abnormality. OTHER: Negative. No abnormal gaseous collections. XR/XR abdomen 1V IMPRESSION: 1. Stable stone within proximal right ureter just inferior to level of L4 right transverse process. 2. Stable right ureteral stent. Electronically authenticated by: JOSIAS AUGUSTIN Date: 05/03/2023 15:53
[2023-05-03] MEDS: LACTATED RINGER'S SOLUTION 1,000 ML 50 ML IV (11:13)
[2023-05-03] MEDS: CEFAZOLIN SODIUM/DEXTROSE,ISO 1 GM/50 ML IV.SOLN IV (12:17)
--- NOTE | 2023-05-03 12:54 | PM.URSON ---
Urology Surgery Operative Note Operative Note Procedure Date: 05/03/23 Time Out Performed: yes Pre-op Diagnosis: right ureteral calculus status post right stent placement Post-op Diagnosis: same as pre-op Procedures performed: #1. Right ESWL. Anesthesia: General-LMA Primary Surgeon: Zachary Chung Complications: none Estimated blood loss (mL): 0 Findings: 9 mm right L4 ureteral calculus. Specimens: none Indications for Procedures: this gentleman has a 9 mm right ureteral stone for which he has been stented. He now presents for right ESWL and possible cystoscopy right stent removal. He has signed an informed consent after risks were explained to him. Some of these risks include bleeding, perinephric hematoma, infection and anesthesia to name a few. Detailed description of Procedure: The patient was brought to the Operating Room and placed on Siemens electromagnetic lithotripsy treatment table in the supine position. SCDs were placed on their lower extremities and turned on and functioning during the entire case. Timeout was done by all parties in the room. We all agreed upon the patient's identification and the planned procedures for this patient. General Anesthesia was then administered via LMA. Treatment head was then brought to the patient's right side. While using flourscopy the stone was identified and lined up into the crosshairs. We then began applying shocks at power level II.0 and increased to a maximum power level of 3.7. Intermittent fluoroscopy showed that the stone slowly steadily fragmented. The pieces did not disperse cephalad and caudad,the stent kept them in their original location.We applied a total of 3000 shocks. Our last fluoroscopic image showed substantial stone burden still within the original location of the stone.most of it seemed to be fragmented. I elected not to remove the stent at this time. The procedure was then terminated. He was then transferred to a [facility] bed and wheeled to PACU in stable condition.
== END 2023-05-03 14:00 | disposition home or self-care (01) ==
PROVIDERS: PCP Family Medicine; Visit Provider Urology
PROC: (CPT 50590; principal; 2023-05-03 12:20)
DX: N20.1 Calculus of ureter (principal); I25.10 Atherosclerotic heart disease of native coronary artery without angina pectoris; E78.5 Hyperlipidemia, unspecified; J45.909 Unspecified asthma, uncomplicated; I12.9 Hypertensive chronic kidney disease with stage 1 through stage 4 chronic kidney disease, or unspecified chronic kidney disease; N18.9 Chronic kidney disease, unspecified; Z95.5 Presence of coronary angioplasty implant and graft; Z79.82 Long term (current) use of aspirin; Z79.899 Other long term (current) drug therapy
CPT/HCPCS: 50590; 74018; 82948; J2704

== ENCOUNTER 2023-05-07 17:36 | Outpatient (OUT) | payer MEDICARE, SELFPAY ==
--- NOTE | 2023-05-07 18:05 | XR_ITS ---
The [address] [address] Patient Name: JAMAICA CORRIGAN MRN: [id number] date: 1945 Sex: M Assigned Patient Location: [facility] Current Patient Location: Accession/Order Number: [id number] Exam Date: 05/07/2023 18:00 Report Date: 05/08/2023 11:29 At the request of: MARCELLO ELAM Procedure: XR abdomen 1V EXAMINATION: XR abdomen 1V HISTORY: KIDNEY STONE N20.0 ; post kidney stone removal and stent placement COMPARISON: XR abdomen 05/03/2023 FINDINGS: KIDNEY/URETER - RIGHT: Right ureteral stent with several small stones within the proximal and mid ureter. KIDNEY/URETER - LEFT: No visible renal or ureteral calcifications. PELVIS: No visible ureteral calcifications. Any visible calcifications favor phleboliths. BOWEL: No abnormal dilation or deviation. BONES: No acute abnormality. OTHER: Negative. No abnormal gaseous collections. XR/XR abdomen 1V IMPRESSION: 1. Stable right ureteral stent appearing in appropriate position. 2. No appreciable progression of proximal right ureteral stone, but it does appear to be fragmented on today's study. Electronically authenticated by: JOSIAS AUGUSTIN Date: 05/08/2023 11:29
== END 2023-05-07 17:37 | disposition home or self-care (01) ==
PROVIDERS: PCP Family Medicine; Visit Provider Urology
DX: N20.0 Calculus of kidney (principal)
CPT/HCPCS: 74018

== ENCOUNTER 2023-05-22 12:30 | Outpatient (OUT) | payer MEDICARE, SELFPAY | END 2023-05-22 12:31 | disposition home or self-care (01) | LOC: PST 12:31 | PROVIDERS: PCP Family Medicine; Visit Provider Urology | DX: Z01.818 Encounter for other preprocedural examination (principal); N20.1 Calculus of ureter; I10 Essential (primary) hypertension; E78.5 Hyperlipidemia, unspecified ==

== ENCOUNTER 2023-05-24 08:24 | Day surgery (SDC) | payer MEDICARE, SELFPAY ==
[2023-05-24] VITALS (10 sets, daily range): BP systolic 104–144; BP diastolic 66–84; PULSE 52–63; RESP 11–16; TEMP 36.3; O2SAT 93–98; BMI 34.0
[2023-05-24 08:42] LABS: Basophils Absolute Auto 0.1 10^3/uL (0.0-0.1); Basophils Percent Auto 0.8 % (0.2-2.0); Eosinophils Absolute Auto 0.2 10^3/uL (0.0-0.7); Eosinophils Percent Auto 3.8 % (0.9-7.0); Hematocrit 46.8 % (42.0-54.0); Hemoglobin 15.8 g/dL (14.0-18.0); Immature Granulocytes Abs Auto 0.03 10^3/uL (0.00-0.03); Immature Granulocytes Pct Auto 0.5 % (0.0-0.5); Lymphocytes Absolute Auto 1.8 10^3/uL (1.2-3.8); Lymphocytes Percent Auto 28.8 % (20.5-60.0); Mean Corpuscular HGB Conc 33.8 g/dL (29.9-35.2); Mean Corpuscular Volume 91.8 fL (80.0-94.0); Mean Platelet Volume 9.3 fL (9.5-13.5); Monocytes Absolute Auto 0.6 10^3/uL (0.3-0.8); Monocytes Percent Auto 9.3 % (1.7-12.0); Neutrophils Absolute Auto 3.6 10^3/uL (1.4-6.5); Neutrophils Percent Auto 56.8 % (43.0-75.0); Platelet Count 168 10^3/uL (150-450); White Blood Count 6.4 10^3/uL (4.0-11.0)
[2023-05-24 08:47] LABS: Anion Gap 13.3; BUN Creatinine Ratio 24.8; Calcium 8.9 mg/dL (8.5-10.1); Carbon Dioxide 26.2 mmol/L (21.0-32.0); Chloride 105 mmol/L (98-107); Estimated GFR (African America >60 (>=60); Estimated GFR (Non-African Ame 56 (>=60); Glucose 102 mg/dL (74-106); Potassium 4.5 mmol/L (3.5-5.1); Sodium 140 mmol/L (136-145)
[2023-05-24 08:56] LABS: INR 1.03; Partial Thromboplastin Time 30.4 sec (22.3-36.2); Prothrombin Time 10.9 sec (9.0-11.6)
--- NOTE | 2023-05-24 09:00 | XR_ITS ---
The [address] [address] Patient Name: JAMAICA CORRIGAN MRN: [id number] date: 1945 Sex: M Assigned Patient Location: [facility] Current Patient Location: [facility] Accession/Order Number: [id number] Exam Date: 05/24/2023 08:30 Report Date: 05/24/2023 09:01 At the request of: MARCELLO ELAM Procedure: XR abdomen 1V EXAMINATION: XR abdomen 1V HISTORY: kidney stones COMPARISON: XR abdomen 05/07/2023 FINDINGS: KIDNEY/URETER - RIGHT: Right ureteral stent with a few small calcifications suspected within the mid ureter. No appreciable stones within the kidney. KIDNEY/URETER - LEFT: No visible renal or ureteral calcifications. PELVIS: Stable small pelvic calcifications favoring phleboliths. BOWEL: No abnormal dilation or deviation. BONES: No acute abnormality. OTHER: Negative. No abnormal gaseous collections. XR/XR abdomen 1V IMPRESSION: 1. Stable right ureteral stent. 2. Distal progression of small stones previously seen within proximal right ureter. Electronically authenticated by: JOSIAS AUGUSTIN Date: 05/24/2023 09:01
[2023-05-24] MEDS: LACTATED RINGER'S SOLUTION 1,000 ML 50 ML IV (09:07)
[2023-05-24] MEDS: CEFAZOLIN SODIUM/DEXTROSE,ISO 1 GM/50 ML IV.SOLN IV (10:30)
--- NOTE | 2023-05-24 11:51 | P.URON_ITS ---
Urology Surgery Operative Note Operative Note Procedure Date: 05/24/23 Time Out Performed: yes Pre-op Diagnosis: right ureteral calculus Post-op Diagnosis: same as pre-op Procedures performed: #1. Right ESWL. #2. Cystoscopy. #3. Right stent removal. #4. Right rigid ureteral dilation. #5. Right ureteroscopy. #6. Holmium laser lithotripsy of right ureteral calculus. #7. Stone basket extraction. Anesthesia: General-LMA Primary Surgeon: Zachary Chung Complications: non- Estimated blood loss (mL): 5 Findings: extremely hard right ureteral calculus Specimens: right ureteral calculus fragments Indications for Procedures: this gentleman has an 8-9 mm right ureteral calculus for which she was stented and underwent ESWL times one. He now presents for a 2nd ESWL treatment and possible ureteroscopic laser lithotripsy and stent removal. He has signed an informed consent for these procedures after risks were explained. Some of these risks include bleeding, perinephric hematoma, infection and anesthesia to name a few. Detailed description of Procedure: The patient was brought to the Operating Room and placed on [employer] electromagnetic lithotripsy treatment table in the supine position. SCDs were placed on their lower extremities and turned on and functioning during the entire case. Timeout was done by all parties in the room. We all agreed upon the patient's identification and the planned procedures for this patient. General Anesthesia was then administered via LMA. Treatment head was then brought to the patient's correct side. While using flourscopy the stone was identified and lined up into the crosshairs. We then began applying shocks.started at power level II.0 and increased to power level of 3.5. Inttermittent fluoroscopy showed that the stone failed to fragment well after 2000 shocks. This part of the procedure was terminated. He was then repositioned into the modified dorsal lithotomy position. All pressure points were satisfactorily padded. [place] were sterilely prepped and draped in usual fashion. I started by passing a 22 [place] Olympus cystoscope per urethra and into the bladder. A flexible grasping forceps was passed. The stent was grasped and brought out the urethral meatus. I tthen slid a Glidewire through the stent into the kidney and remove the old stent. I then dilated the distal right ureter with on 08/06 navigator ureteral access sheath. This was passed over the guidewire and up to the L5 level. The stylette and wire were then removed. I then passed a flexible ureteroscope through the access sheath and into the ureter. I was able to get right up to the stone. I then used a 272 ? holmium laser fiber and passed this through the scope. Once I made contact with the stone I began doing laser lithotripsy at 6 W continuously. One could see that the stone was very hard. It did fragment into a few pieces. A 0 tip nitinol basket was used and the pieces were extracted out and sent for analysis. I went up-and-down the ureter numerous times until the ureter was free of stone. He access sheath was then slowly removed and the tip of the scope was proximal to the access sheath as the sheath was removed. A distal stone was identified and this was grasped with the basket and extracted also. The ureter was entirely free of all stone. Cystoscope was passed and the bladder and the bladder was drained of its contents. The scope was then removed. I did elect not to replace a stent. He was then transferred to a [facility] bed and wheeled to PACU in stable condition.
[2023-06-04 00:09] LABS: Calcium Oxalate Monohydrate 100 % (.); Size 3x3 mm (.)
== END 2023-05-24 13:00 | disposition home or self-care (01) ==
PROVIDERS: PCP Family Medicine; Visit Provider Urology
PROC: (CPT 50590; principal; 2023-05-24 10:20)
DX: N20.1 Calculus of ureter (principal); I12.9 Hypertensive chronic kidney disease with stage 1 through stage 4 chronic kidney disease, or unspecified chronic kidney disease; N18.9 Chronic kidney disease, unspecified; I25.10 Atherosclerotic heart disease of native coronary artery without angina pectoris; E78.5 Hyperlipidemia, unspecified; Z95.5 Presence of coronary angioplasty implant and graft; Z79.82 Long term (current) use of aspirin; Z79.899 Other long term (current) drug therapy
CPT/HCPCS: 50590; 52353; 36415; 74018; 80048; 82365; 85025; 85610; 85730; 99999; J2704

== ENCOUNTER 2023-09-18 09:21 | Emergency (ER) | payer OTHER, SELFPAY ==
[2023-09-18 09:27] VITALS: BP 131/85; PULSE 56; RESP 20; TEMP 36.4; O2SAT 98; BMI 33.1
--- NOTE | 2023-09-18 09:39 | ED_ITS ---
HPI - General Adult General Chief complaint: Back Pain/Injury Stated complaint: back pain Time Seen by Provider: 09/18/23 09:26 Source: patient Mode of arrival: Wheelchair Limitations: no limitations History of Present Illness HPI narrative: About 3 days ago the patient developed lateral right hip pain when he bent over to cut his toenails. Now the pain is present whenever he lifts the right leg at the hip/hip flexion and has worsened in severity when present. No pain at rest. He takes aspirin daily. No other meds taken for the pain. He is concerned that it might be a kidney stone. Related Data Home Medications Medication Instructions Recorded Confirmed isosorbide mononitrate 30 mg 30 mg PO DAILY 04/07/23 05/24/23 tablet,extended release 24 hr lisinopril 2.5 mg tablet 2.5 mg PO DAILY 04/07/23 05/24/23 metoprolol tartrate 25 mg tablet 25 mg PO DAILY 04/07/23 05/24/23 simvastatin 20 mg tablet 20 mg PO DAILY 04/07/23 05/24/23 aspirin 81 mg tablet,delayed 81 mg PO DAILY 04/17/23 05/24/23 release (Adult Aspirin Regimen) Previous Rx's Medication Instructions Recorded cephalexin 250 mg capsule 250 mg PO DAILY 30 days #30 caps 04/07/23 cephalexin 250 mg capsule 250 mg PO DAILY 14 days #14 caps 05/03/23 oxybutynin chloride 15 mg 15 mg PO DAILY #20 tabs 05/03/23 tablet,extended release 24 hr nabumetone 750 mg tablet 750 mg PO BID PRN pain #20 tabs 09/18/23 Allergies Allergy/AdvReac Type Severity Reaction Status Date / Time No Known Drug Allergies Allergy Verified 04/17/23 08:28 [facility] Medical History (Updated 09/18/23 @ 10:31 by Micheal Aguirre) Carpal tunnel syndrome ?G56.00 - Carpal tunnel syndrome, unspecified upper limb (ICD-10) Dyspnea on exertion ?R06.09 - Other forms of dyspnea (ICD-10) DDD (degenerative disc disease) Back pain ?M54.9 - Dorsalgia, unspecified (ICD-10) Pneumonia ?J18.9 - Pneumonia, unspecified organism (ICD-10) COVID-19 ?U07.1 - COVID-19 (ICD-10) Hearing loss ?H91.90 - Unspecified hearing loss, unspecified ear (ICD-10) Heartburn ?R12 - Heartburn (ICD-10) Coronary artery disease ?I25.10 - Atherosclerotic heart disease of [place] coronary artery without angina pectoris (ICD-10) High cholesterol ?E78.00 - Pure hypercholesterolemia, unspecified (ICD-10) Clavicle fracture ?S42.009A - Fracture of unspecified part of unspecified clavicle, initial encounter for closed fracture (ICD-10) Surgical History (Updated 04/17/23 @ 08:39 by Lupe Jones NP) History of carpal tunnel release ?Z98.890 - Other specified postprocedural states (ICD-10) History of colonoscopy ?Z98.890 - Other specified postprocedural states (ICD-10) S/P ureteral stent placement (04/07/23) ?Z96.0 - Presence of urogenital implants (ICD-10) Stented coronary artery (~03/2019) ?Z95.5 - Presence of coronary angioplasty implant and graft (ICD-10) Family History (Updated 04/17/23 @ 08:39 by Lupe Jones NP) Other Family history of renal failure Social History Within the past year, how often did you have a drink containing alcohol: never Within the past year, how often did you have six or more drinks on one occasion: never Score interpretation: A score less than 4 is consistent with normal alcohol consumption. 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 Known occupational exposures/hazards: No Highest level of school completed/degree received: high school graduate Do you want help with school or training: No Are you now , , , , never or living with a partner: In a typical week, how many times do you talk on the telephone with family, friends, or neighbors: 3 or more times per week How often do you get together with friends or relatives: 3 or more times per week How often do you attend congregational or muslim services: never Do you belong to any clubs or organizations such as congregational groups unions, fraternal or athletic groups, or school groups: no Total score: 2 Score interpretation: A score of greater than or equal to 2 indicates the lowest level of social isolation. Little interest or pleasure in doing things: not at all Feeling down, depressed, or hopeless: not at all Feel stressed/tense/nervous/anxious/difficulty sleeping: not at all Due to disability, difficulty making decisions: No Do you think of yourself as: straight/heterosexual Gender Identity: male Exam Narrative Exam Narrative: Nurses notes and vital signs reviewed and patient is not hypoxic. afebrile General: Well-appearing and in no apparent distress. Skin: Warm, dry, no pallor noted. No rash. Cardiovascular: Regular Rate and Rhythm without murmur, gallop or rub. Respiratory: No accessory muscle use or respiratory distress. Lungs are clear to auscultation, no wheezing, rales or rhonchi Back: No midline thoracic or lumbar vertebral tenderness. No CVA tenderness Musculoskeletal: Tenderness to the lateral right hip along the greater trochanter. Increased pain with passive internal rotation right hip. Right hip with normal ROM, no calf or popliteal tenderness, no lower extremity edema/swelling GI: Abdomen is soft, non-distended. Normal bowel sounds. No tenderness to palpation. No rebound, guarding, or rigidity noted. Neurological: A&O x4. No cranial nerve dysfunction observed. No truncal ataxia. Moves all extremities. Sensation intact. Psychiatric: Cooperative and interactive. Normal mood and affect. Constitutional Vital Signs, click to edit/add: Last Vital Signs Temp 97.5 F L 09/18/23 09:27 Pulse 56 L 09/18/23 09:27 Resp 20 09/18/23 09:27 BP 131/85 09/18/23 09:27 Pulse Ox 98 09/18/23 09:27 O2 Del Method Room Air 09/18/23 09:27 Course Vital Signs Vital signs: Vital Signs Temperature 97.5 F L 09/18/23 09:27 Pulse Rate 56 L 09/18/23 09:27 Respiratory Rate 20 09/18/23 09:27 Blood Pressure 131/85 09/18/23 09:27 Pulse Oximetry 98 09/18/23 09:27 Oxygen Delivery Method Room Air 09/18/23 09:27 Temperature 97.5 F L 09/18/23 09:27 Pulse Rate 56 L 09/18/23 09:27 Respiratory Rate 20 09/18/23 09:27 Blood Pressure 131/85 09/18/23 09:27 Pulse Oximetry 98 09/18/23 09:27 Oxygen Delivery Method Room Air 09/18/23 09:27 Medical Decision Making MDM Narrative Medical decision making narrative: history and exam consistent with right hip strain. Prior medical records reveal abd CT and abd XR done this summer that did not show any bony abnormalities. Patient received IM Solumedrol and oral Toradol and then had xrays of the right hip and pelvis. . Imaging Data xr hip & pelvis: Radiologist's impression: Patient Name: JAMAICA CORRIGAN MRN: [id number] date: 1945 Sex: M Assigned Patient Location: ER Current Patient Location: ED.MAIN Accession/Order Number: [id number] Exam Date: 09/18/2023 09:48 Report Date: 09/18/2023 10:15 At the request of: MICHEAL AGUIRRE Procedure: XR hip RT 2V w/ pelvis PROCEDURE: XR hip RT 2V w/ pelvis HISTORY: right hip pain COMPARISON: None. FINDINGS: BONES:Moderate narrowing of the hip joint spaces, right greater than left. Subchondral cyst deep to the superior rim of the right acetabulum. No fracture or dislocation. SOFT TISSUES:No visible soft tissue swelling. EFFUSION:None visible. OTHER: Negative. IMPRESSION: 1. No acute bone abnormality. 2. Moderate degenerative joint disease. Electronically authenticated by: JOSIAS AUGUSTIN Date: 09/18/2023 10:15 Discharge Plan Discharge Chief Complaint: Back Pain/Injury Clinical Impression: Strain of right hip Patient Disposition: Home, Self-Care Time of Disposition Decision: 10:31 Prescriptions / Home Meds: New nabumetone 750 mg tablet 750 mg PO BID PRN (Reason: pain) Qty: 20 0RF No Action isosorbide mononitrate 30 mg tablet extended release 24 hr 30 mg PO DAILY lisinopril 2.5 mg tablet 2.5 mg PO DAILY metoprolol tartrate 25 mg tablet 25 mg PO DAILY simvastatin 20 mg tablet 20 mg PO DAILY cephalexin 250 mg capsule 250 mg PO DAILY 30 Days Qty: 30 0RF oxybutynin chloride 15 mg tablet extended release 24hr 15 mg PO DAILY Qty: 20 0RF cephalexin 250 mg capsule 250 mg PO DAILY 14 Days Qty: 14 0RF aspirin [Adult Aspirin Regimen] 81 mg tablet,delayed release (DR/EC) 81 mg PO DAILY Instructions: Hip Pain (ED) Stand Alone Forms: Portal Instructions Referrals: BETINA SAMPSON [Primary Care Provider] - 1 week
--- NOTE | 2023-09-18 09:39 | XR_ITS ---
The [address] [address] Patient Name: JAMAICA CORRIGAN MRN: [id number] date: 1945 Sex: M Assigned Patient Location: ER Current Patient Location: ED.MAIN Accession/Order Number: [id number] Exam Date: 09/18/2023 09:48 Report Date: 09/18/2023 10:15 At the request of: MICHEAL AGUIRRE Procedure: XR hip RT 2V w/ pelvis PROCEDURE: XR hip RT 2V w/ pelvis HISTORY: right hip pain COMPARISON: None. FINDINGS: BONES:Moderate narrowing of the hip joint spaces, right greater than left. Subchondral cyst deep to the superior rim of the right acetabulum. No fracture or dislocation. SOFT TISSUES:No visible soft tissue swelling. EFFUSION:None visible. OTHER: Negative. XR/XR hip RT 2V w/ pelvis IMPRESSION: 1. No acute bone abnormality. 2. Moderate degenerative joint disease. Electronically authenticated by: JOSIAS AUGUSTIN Date: 09/18/2023 10:15
[2023-09-18] MEDS: KETOROLAC TROMETHAMINE 10 MG TABLET PO (09:46)
[2023-09-18] MEDS: METHYLPREDNISOLONE SOD SUCC PF 125 MG/2 ML VIAL IM (09:47)
== END 2023-09-18 10:44 | disposition home or self-care (01) ==
PROVIDERS: Emergency Provider Emergency Medicine; PCP Family Medicine
DX: S76.011A Strain of muscle, fascia and tendon of right hip, initial encounter (principal); X50.9XXA Other and unspecified overexertion or strenuous movements or postures, initial encounter; I25.10 Atherosclerotic heart disease of native coronary artery without angina pectoris; E78.00 Pure hypercholesterolemia, unspecified; Z79.82 Long term (current) use of aspirin; Z79.899 Other long term (current) drug therapy; H91.90 Unspecified hearing loss, unspecified ear; Z86.16 Personal history of COVID-19; Z87.01 Personal history of pneumonia (recurrent); Z98.890 Other specified postprocedural states; Z95.5 Presence of coronary angioplasty implant and graft
CPT/HCPCS: 73502; 96372; 99284; J2930

== ENCOUNTER 2023-11-17 11:55 | Observation (INO) | payer OTHER, SELFPAY ==
[2023-11-17] VITALS (75 sets, daily range): BP systolic 116–165; BP diastolic 71–86; PULSE 72–99; RESP 9–39; TEMP 37.2–38.8; O2SAT 93–98; BMI 32.1; BMI 32.5
--- NOTE | 2023-11-17 12:01 | ED_ITS ---
HPI - Weakness General Chief complaint: Weakness Stated complaint: Weakness Time Seen by Provider: 11/17/23 12:01 Related Data Home Medications Medication Instructions Recorded Confirmed isosorbide mononitrate 30 mg 30 mg PO DAILY 04/07/23 05/24/23 tablet,extended release 24 hr lisinopril 2.5 mg tablet 2.5 mg PO DAILY 04/07/23 05/24/23 metoprolol tartrate 25 mg tablet 25 mg PO DAILY 04/07/23 05/24/23 simvastatin 20 mg tablet 20 mg PO DAILY 04/07/23 05/24/23 aspirin 81 mg tablet,delayed 81 mg PO DAILY 04/17/23 05/24/23 release (Adult Aspirin Regimen) Previous Rx's Medication Instructions Recorded oxybutynin chloride 15 mg 15 mg PO DAILY #20 tabs 05/03/23 tablet,extended release 24 hr Allergies Allergy/AdvReac Type Severity Reaction Status Date / Time No Known Drug Allergies Allergy Verified 11/17/23 12:06 [facility] Medical History (Updated 11/17/23 @ 15:08 by Derek Salazar MD) Carpal tunnel syndrome ?G56.00 - Carpal tunnel syndrome, unspecified upper limb (ICD-10) Dyspnea on exertion ?R06.09 - Other forms of dyspnea (ICD-10) DDD (degenerative disc disease) Back pain ?M54.9 - Dorsalgia, unspecified (ICD-10) Pneumonia ?J18.9 - Pneumonia, unspecified organism (ICD-10) COVID-19 ?U07.1 - COVID-19 (ICD-10) Hearing loss ?H91.90 - Unspecified hearing loss, unspecified ear (ICD-10) Heartburn ?R12 - Heartburn (ICD-10) Coronary artery disease ?I25.10 - Atherosclerotic heart disease of [place] coronary artery without angina pectoris (ICD-10) High cholesterol ?E78.00 - Pure hypercholesterolemia, unspecified (ICD-10) Clavicle fracture ?S42.009A - Fracture of unspecified part of unspecified clavicle, initial encounter for closed fracture (ICD-10) Surgical History (Updated 04/17/23 @ 08:39 by Lupe Jones NP) History of carpal tunnel release ?Z98.890 - Other specified postprocedural states (ICD-10) History of colonoscopy ?Z98.890 - Other specified postprocedural states (ICD-10) S/P ureteral stent placement (04/07/23) ?Z96.0 - Presence of urogenital implants (ICD-10) Stented coronary artery (~03/2019) ?Z95.5 - Presence of coronary angioplasty implant and graft (ICD-10) Family History (Updated 04/17/23 @ 08:39 by Lupe Jones NP) Other Family history of renal failure Social History Within the past year, how often did you have a drink containing alcohol: never Within the past year, how often did you have six or more drinks on one occasion: never Score interpretation: A score less than 4 is consistent with normal alcohol consumption. 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 Known occupational exposures/hazards: No Highest level of school completed/degree received: high school graduate Do you want help with school or training: No Are you now , , , , never or living with a partner: In a typical week, how many times do you talk on the telephone with family, friends, or neighbors: 3 or more times per week How often do you get together with friends or relatives: 3 or more times per week How often do you attend sikh or adventist services: never Do you belong to any clubs or organizations such as sikh groups unions, fraternal or athletic groups, or school groups: no Total score: 2 Score interpretation: A score of greater than or equal to 2 indicates the lowest level of social isolation. Little interest or pleasure in doing things: not at all Feeling down, depressed, or hopeless: not at all Feel stressed/tense/nervous/anxious/difficulty sleeping: not at all Due to disability, difficulty making decisions: No Do you think of yourself as: straight/heterosexual Gender Identity: male Exam Narrative Exam Narrative: This patient is awake alert cognition and mentation is normal. He is very hard of hearing but he is not confused and not repeating himself. Follows all simple and complex commands GCS of 15. Vital signs are stable. He does not appear ill or toxic skin is warm and dry there is no focal obvious deficits before he was sent to CT suite. HEENT shows neck to be soft and supple he has not had trauma injury or falls. Lungs were clear with no wheeze rales or rhonchi heart sounds are normal. He is in a sinus rhythm rate on his twelve-lead EKG is 78. The abdomen is obese there is no guarding rebound rigidity or symptoms of abdominal pain. Neurological examination shows cranial nerves to be normal there really is not much nystagmus with lateral gaze. Hearing is decreased bilaterally per history no change. He does not have any truncal ataxia but when I tried to have him stand and take steps if he nearly falls and loses his balance. His [id number] is normal. Gross motor strength in the upper and lower extremities is normal. His speech is not slurred and there is no expressive aphasia. Skin is warm and dry. Legs have 1+ lower leg edema. [facility] - Weakness Medical Records Medical records narrative: This patient's CT without contrast does not show any gross abnormalities. His laboratory testing is baseline chemistries with no increased white blood cell count or anemia. I did demonstrate that he absolutely cannot stand and walk without falling. This is despite him having good strength in his legs when I do individual muscle testing. He does not have truncal ataxia and no other cerebellar findings. Case was discussed with the hospitalist because he has 2 levels on his home his place of residence I do not believe he is safe to go home as he is extreme risk for falling and his would not be able to help him. Discharge Plan Discharge Chief Complaint: Weakness Clinical Impression: Dizziness Patient Disposition: Admitted as Observation Time of Disposition Decision: 15:08 Prescriptions / Home Meds: No Action isosorbide mononitrate 30 mg tablet extended release 24 hr 30 mg PO DAILY lisinopril 2.5 mg tablet 2.5 mg PO DAILY metoprolol tartrate 25 mg tablet 25 mg PO DAILY simvastatin 20 mg tablet 20 mg PO DAILY oxybutynin chloride 15 mg tablet extended release 24hr 15 mg PO DAILY Qty: 20 0RF aspirin [Adult Aspirin Regimen] 81 mg tablet,delayed release (DR/EC) 81 mg PO DAILY Referrals: BETINA SAMPSON [Primary Care Provider] - 1 week
--- NOTE | 2023-11-17 12:02 | ECG_ITS ---
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
--- NOTE | 2023-11-17 12:02 | XR_ITS ---
The [address] [address] Patient Name: JAMAICA CORRIGAN MRN: [id number] date: 1945 Sex: M Assigned Patient Location: ER Current Patient Location: ER Accession/Order Number: [id number] Exam Date: 11/17/2023 12:19 Report Date: 11/17/2023 12:45 At the request of: VANDA DOVE Procedure: XR chest 1V PROCEDURE: XR chest 1V DATE: 11/17/2023 12:19 PM EST COMPARISONS: 11/16/2017 CLINICAL INDICATION: 78 years Male Weakness FINDINGS: The cardiomediastinal silhouette and pulmonary vasculature are within normal limits. The lungs are clear. There is no evidence of pleural effusion or pneumothorax. XR/XR chest 1V IMPRESSION: Chest radiograph is within normal limits. Electronically authenticated by: KARINA PINZON Date: 11/17/2023 12:45
--- NOTE | 2023-11-17 12:03 | CT_ITS ---
The [address] [address] Patient Name: JAMAICA CORRIGAN MRN: [id number] date: 1945 Sex: M Assigned Patient Location: ER Current Patient Location: Accession/Order Number: [id number] Exam Date: 11/17/2023 12:19 Report Date: 11/17/2023 13:05 At the request of: VANDA DOVE Procedure: CT head/brain wo con EXAM: CT head/brain wo con HISTORY: Left leg weakness COMPARISON: None available at the time of dictation. TECHNIQUE: Axial unenhanced CT images were obtained through the brain. Individualized dose optimization technique was used for the performed procedure by employing the following: Automated exposure control, adjustment of the mA and/or kV according to patient's size, and/or the use of the iterative construction technique. Coronal and sagittal reformats were performed. FINDINGS: No acute intracranial abnormality. No acute infarct, hemorrhage or mass. No midline shift. Aleman-white matter differentiation is preserved. Ventricles and sulci are normal in size. No acute osseous abnormality. Mild mucosal thickening of the right maxillary sinus. Mild mucosal thickening of the ethmoid air cells. Mastoid air cells are open. Orbits are normal. CT/CT head/brain wo con IMPRESSION: 1. No acute intracranial abnormality. No acute intracranial infarct visualized by this modality. (MRI is more sensitive). No acute intracranial hemorrhage Electronically authenticated by: BRANDON MULLER Date: 11/17/2023 13:05
--- OUTSIDE RECORDS SUMMARY | 2023-11-17 12:05 | XMS_ITS | CCD ---
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 Name Role Phone PHYSICIAN, DEFAULT Unavailable Unavailable PHYSICIAN, DEFAULT Unavailable Unavailable MAXWELL SWAN Unavailable Unavailable PHYSICIAN, DEFAULT Unavailable Unavailable PHYSICIAN, DEFAULT Unavailable Unavailable PHYSICIAN, DEFAULT Unavailable Unavailable PHYSICIAN, DEFAULT Unavailable Unavailable UNKNOWN, PROVIDER Unavailable Unavailable UNKNOWN, PROVIDER Unavailable Unavailable UNKNOWN, PHYSICIAN Unavailable Unavailable UNKNOWN, PHYSICIAN Unavailable Unavailable UNKNOWN, PROVIDER Unavailable Unavailable UNKNOWN, PROVIDER Unavailable Unavailable UNKNOWN, PHYSICIAN Unavailable Unavailable MAXWELL SWAN Unavailable Unavailable Betina Sampson Primary Care Physician MATEUS, DR ALVAREZ Admitting Unavailable MOUKARBEL, DR ALVAREZ Attending Unavailable ROSS, BETINA DONNA Primary Care Unavailable MOUKARBEL, DR ALVAREZ Admitting Unavailable MOUKARBEL, DR ALVAREZ Attending Unavailable ROSS, BETINA DONNA Primary Care Unavailable ROSS, BETINA DONNA Referring Unavailable MOUKARBEL, DR ALVAREZ Consulting Unavailable MOUKARBEL, DR ALVAREZ Admitting Unavailable MOUKARBEL, DR ALVAREZ Attending Unavailable ROSS, BETINA DONNA Primary Care Unavailable MOUKARBEL, DR ALVAREZ Consulting Unavailable MOUKARBEL, DR ALVAREZ Admitting Unavailable MOUKARBEL, DR ALVAREZ Attending Unavailable ROSS, BETINA DONNA Primary Care Unavailable MOUKARBEL, DR ALVAREZ Consulting Unavailable MOUKARBEL, DR ALVAREZ Admitting Unavailable MOUKARBEL, DR ALVAREZ Attending Unavailable ROSS, BETINA DONNA Primary Care Unavailable MOUKARBEL, DR ALVAREZ Admitting Unavailable MOUKARBEL, DR ALVAREZ Attending Unavailable ROSS, BETINA DONNA Primary Care Unavailable SYDNEE HERNANDEZ Attending Unavailable MATEUS, ANTONIO Attending Unavailable Zachary CHUNG Attending Unavailable Zachary CHUNG Referring Unavailable Betina Sampson Attending Unavailable Betina Sampson Attending Unavailable Betina Sampson Attending Unavailable Betina Sampson Attending Unavailable Ross, Betina E. Attending Unavailable Betina Sampson Attending Unavailable Zachary CHUNG Attending Unavailable Betina Sampson Admitting Unavailable Betina Sampson Attending Unavailable Betina Sampson Admitting Unavailable Zachary CHUNG Attending Unavailable Zachary CHUNG Attending Unavailable Allergies Allergy Classification Reported Allergen(s) Allergy Type Date of Onset Reaction(s) Facility (1 source) No Known Medication Allergies; Translations: [No Known Medication Allergies] Propensity to adverse reactions (disorder) [facility] Repository Medications Current Medications Medication Drug Class(es) Dates Sig (Normalized) Sig (Original) Aspir 81 (6 sources) Start: 01-17-2022 take 81 mg by mouth once daily Aspir 81 81 mg, Oral, Daily, Refills(s) 0 Start Date: 01/17/22 Status: Ordered Calcium, Magnesium and Zinc oral tablet (6 sources) Start: 01-17-2022 take 1 tablet by mouth once daily Calcium, Magnesium and Zinc oral tablet 1 tab(s), Oral, Daily, Refill(s) 0 Start Date: 01/17/22 Status: Ordered Dosoquin oral tablet (3 sources) Start: 01-17-2022 End: 07-16-2022 take 1 tablet by mouth once daily Dosoquin oral tablet 1 tab, Oral, Daily for 90 day(s), 90 EA, Refill(s) 1, [id number], 172, cm, 01/17/22 9:53:00 EDT, Height/Length Dosing, 92.5, kg, 01/17/22 9:53:00 EDT, Weight Dosing Start Date: 01/17/22 Stop Date: 07/16/22 Status: Ordered 24 hr isosorbide mononitrate 30 mg extended release oral tablet (5 sources) Nitrate Vasodilator Start: 04-20-2022 take 1 tablet by mouth once daily in the morning isosorbide mononitrate 30 mg ER Tab 30 mg = 1 tab(s), Oral, qAM, # 30 tab(s), Refills(s) 0, other reason (Rx) Start Date: 04/20/22 Status: Ordered lisinopril 2.5 mg oral tablet (6 sources) Angiotensin Converting Enzyme Inhibitor Start: 01-17-2022 take 1 tablet by mouth once daily lisinopril 2.5 mg Tab 2.5 mg = 1 tab(s), Oral, Daily, # 90 tab(s), Refills(s) 0 Start Date: 01/17/22 Status: Ordered metoprolol tartrate 25 mg oral tablet (5 sources) beta-Adrenergic Chaim Start: 11-13-2022 Lopressor 25 mg oral tablet 90 EA, TAKE 1/2 (ONE-HALF) TABLET BY MOUTH TWICE DAILY FOR 90 DAYS, Refills(s) 0 Start Date: 11/13/22 Status: Ordered Start: 01-17-2022 End: 05-16-2022 take 0.5 tablet by mouth twice daily Lopressor 25 mg oral tablet 12.5 mg = 0.5 tab(s), Oral, BID, TAKE 1/2 (ONE-HALF) TABLET BY MOUTH TWICE DAILY, X 90 day(s), # 90 tab(s), Refills(s) 0, Pharmacy: [id number], 172, cm, 01/17/22 9:53:00 EDT, Height/Length Dosing, 92.5, kg, 01/17/22 9:53:00 EDT, Weight D... Start Date: 02/15/22 Stop Date: 05/16/22 Status: Ordered simvastatin 20 mg oral tablet (6 sources) HMG-CoA Reductase Inhibitor Start: 04-20-2022 take 1 tablet by mouth once daily at bedtime simvastatin 20 mg Tab 20 mg = 1 tab(s), Oral, Once a day (at bedtime), # 90 tab(s), Refills(s) 0 Start Date: 04/20/22 Status: Ordered Start: 01-17-2022 End: 04-17-2022 take 1 tablet by mouth once daily simvastatin 10 mg Tab 10 mg = 1 tab(s), Oral, Daily, TAKE 1 TABLET BY MOUTH ONCE DAILY, X 90 day(s), # 90 tab(s), Refills(s) 0, Pharmacy: [id number], 172, cm, 01/17/22 9:53:00 EDT, Height/Length Dosing, 92.5, kg, 01/17/22 9:53:00 EDT, Weight Dosing Start Date: 01/17/22 Stop Date: 04/17/22 Status: Ordered Problems Active Problems Problem Classification Problem Date Documented Date Episodic/Chronic Asthma (2 sources) Uncomplicated mild persistent asthma 11-10-2022 Chronic Cardiac dysrhythmias (6 sources) Bradycardia 01-17-2022 Episodic Chronic kidney disease (6 sources) Chronic kidney disease stage 3A ; Translations: [Chronic kidney disease, stage 3a] Onset: 07-19-2022 Chronic Comment on above: Added at the request of Dr. Sampson, per outpatient CDI policy. Congestive heart failure; nonhypertensive (6 sources) Diastolic dysfunction 01-19-2022 Chronic Coronary atherosclerosis and other heart disease (17 sources) Atherosclerotic heart disease of [place] coronary artery without angina pectoris; Translations: [Coronary arteriosclerosis] Onset: 12-14-2017 01-17-2022 Chronic Coronary atherosclerosis and other heart disease (3 sources) Presence of coronary angioplasty implant and graft; Translations: [PRESENCE OF CORONARY ANGIOPLASTY IMPLANT AND GRAFT] Onset: 01-16-2018 Episodic Disorders of lipid metabolism (10 sources) Hyperlipidemia, unspecified; Translations: [Mixed hyperlipidemia] Onset: 12-14-2017 01-17-2022 Chronic Essential hypertension (10 sources) Essential (primary) hypertension; Translations: [Hypertensive disorder] Onset: 12-14-2017 01-17-2022 Chronic Fracture of upper limb (3 sources) Closed fracture of shaft of clavicle 08-14-2022 Episodic Hypertension with complications and secondary hypertension (1 source) Chronic kidney disease due to hypertension; Translations: [Hypertensive chronic kidney disease with stage 1 through stage 4 chronic kidney disease, or unspecified chronic kidney disease] Onset: 07-19-2022 Chronic Nutritional deficiencies (6 sources) Vitamin D deficiency 01-17-2022 Chronic Other and ill-defined heart disease (1 source) Cardiomegaly; Translations: [CARDIOMEGALY] Onset: 12-14-2017 Chronic Other and ill-defined heart disease (1 source) Heart disease; Translations: [Heart disease, unspecified] Onset: 04-20-2022 Chronic Other lower respiratory disease (6 sources) Dyspnea on exertion 01-17-2022 Episodic Other lower respiratory disease (1 source) Dyspnea; Translations: [Dyspnea, unspecified] Onset: 08-14-2022 Episodic Other lower respiratory disease (5 sources) Other forms of dyspnea; Translations: [OTHER FORMS OF DYSPNEA] Onset: 04-30-2022 Episodic Other nutritional; endocrine; and metabolic disorders (3 sources) Obese class I; Translations: [Body mass index (BMI) 31.0-31.9, adult] Onset: 04-20-2022 Chronic Other nutritional; endocrine; and metabolic disorders (1 source) Obesity; Translations: [Obesity, unspecified] Onset: 04-20-2022 Chronic Residual codes; unclassified (2 sources) Patient encounter status; Translations: [Other specified health status] Onset: 08-14-2022 Episodic Unclassified (2 sources) Unknown / UNK(Unknown) Onset: 12-14-2017 Unclassified (6 sources) History of cardiac catheterization 01-17-2022 Past or Other Problems Problem Classification Problem Date Documented Date Episodic/Chronic Other aftercare (1 source) senior living (current) use of aspirin; Translations: [GROUP HOME (CURRENT) USE OF ASPIRIN] Onset: 12-14-2017 Episodic Other lower respiratory disease (1 source) Shortness of breath; Translations: [SHORTNESS OF BREATH] Onset: 12-14-2017 Episodic Other screening for suspected conditions (not mental disorders or infectious disease) (5 sources) Abnormal result of other cardiovascular function study; Translations: [ABNORMAL RESULT OF OTHER CARDIOVASCULAR FUNCTION STUDY] Onset: 12-14-2017 Episodic Screening and history of mental health and substance abuse codes (1 source) Personal history of nicotine dependence; Translations: [PERSONAL HISTORY OF NICOTINE DEPENDENCE] Onset: 12-14-2017 Episodic Spondylosis; intervertebral disc disorders; other back problems (1 source) Dorsalgia, unspecified; Translations: [DORSALGIA, UNSPECIFIED] Onset: 12-14-2017 Episodic Results Test Name Value Interpretation Reference Range [facility] ED Note-Physicianon 09-25-19 ED Note-Physician [id number] [facility] RAD - MISCon 09-25-2023 RAD - MISC [id number] [facility] Office Visiton 08-08-2023 Follow-up visit [id number] Ricardo Corrigan 1945 M Date Provider Department Center 08/08/2023 ANTONIO SALMERON CARD [facility] No family history on file Level of Service:16274 [place] OFFICE/OUTPATIENT ESTABLISHED MOD MDM 30-39 MIN Reason for Visit and Comments: Follow-up [[id number]] Normal [facility] Family Medicine Office/Clini c Noteon 07-06-2023 Family Medicine Office/Clinic Note Chief Complaint Subsequent Medicare Wellness Visit Review of Systems PHQ Score Initial Depression Screen Score: 0 Physical Exam Vitals & Measurements HR: 56(Peripheral) BP: 110/70 SpO2: 97% HT: 167 cm HT: 66 in WT: 92 kg WT: 202.4 lb BMI: 32.99 Assessment/Plan 1. Annual visit for general adult medical examination without abnormal findings (Z00.00: Encounter for general adult medical examination without abnormal findings) The patient is accompanied by spouse, patient was given a customized and personalized print out of all the current AHRQ USPSTF?s recommendations for preventative services and all current CDC recommended immunizations, relevant risk recommendations and the following patient brochures were given. Reviewed Medicare preventative services checklist. CDC-Falls Prevention and home safety screening reviewed. Patient denies any falls in last 12 months, voices no worry about falling, exhibits no problems with sitting, standing, or ambulation. Pt voices understanding with keeping walk way area free of clutter to prevent tripping and/or falling. [place] Advance Directives reviewed, patient has copy at home, encouraged to bring to office for scanning to chart. Patient denies any problems with ADL?s and Instrumental ADL?s. Cognitive screening completed with memory and clock face drawing, no deficits noted. Immunization Record reviewed with the patient. Discussed Shingrix vaccine with educational handout and availability. COVID vaccines have been administered, immunization record is up to date. Allergies and medications reviewed and up to date. Patient denies concerns with taking medication as prescribed, reviewed OTC medications with patient, medication list up to date. Blood tests were reviewed: are up to date at this time. Will have labs completed with [facility]. [facility] can not recall date. Reviewed pain symptoms with patient: patient denies pain symptoms at visiting today. Reviewed all outside providers that patient follows. Last visit summary notes available in chart and/or have been requested. Follow up scheduled, to follow up as needed AWV has been scheduled, 07/08/24 Medicare provides yearly screening for alcohol and depression concerns. This is completed during our Medicare Wellness visit for those who do not have a current diagnosis of depression or concerns with alcohol use. I spent a total of 17 minutes on this date of service which included preparing to see the patient, face to face patient care, completing clinical documentation, obtaining and/or reviewing separately obtained history, counseling and educating the patient with handouts. Explanations were provided with reviewing questionnaires. AUDIT risk assessment screening completed, risk score 0, with patient denying concerns with use. Completed PHQ-2 risk assessment for depression with risk score 0, negative findings. Patient has been reminded to notify the provider if there would be a change or concerns with symptoms with fear, unable to sleep, worrying too much or feeling down and/or sad with lost of interest with daily activities. Will continue to monitor with screening yearly during Medicare wellness visits. 2. Bradycardia (R00.1: Bradycardia, unspecified) Patient HR today 56. Patient denies any symptoms of fatigue, SOB, or lightheadedness. Patient is aware of symptoms to monitor for and report to provider. Patient will follow up with PCP as needed. 3. HLD (hyperlipidemia) (E78.2: Mixed hyperlipidemia) Reviewed healthy lifestyle with low fat diet and exercise regimen. When you are overweight our body produces more lipids. Risk also increases with family history of hyperlipidemia and with monitoring alcohol use and avoid smoking. Patient voices understanding with importance of monitoring dietary intake to reduce risk factors associated with CVA. Taking simvastatin daily as directed. Will continue to follow up with office visits with updated labs as directed. 4. Primary hypertension (I10: Essential (primary) hypertension) Patient is taking lisinopril and metoprolol daily as directed. HTN stoplight reviewed with BP goal to be <140/90. Reviewed different factors that can alter blood pressure readings. Education handout provided with s/s to monitor for and report to provider. Patient is encouraged to increase portions of fruit, vegetables, fiber and increase exercise as much as tolerable. Reviewed importance with monitoring foods high in salt content and encouraged to limit intake, if unsure encouraged to discuss with their PCP. Encouraged to eat more chicken, fish and lean white meats and limits red meats in diet. Discussed importance with keeping BP under good control to reduce CVA risk factors. Will continue to f/u with PCP during office visits and as needed. 5. Influenza vaccination declined (Z28.21: Immunization not carried out because of patient refusal) Patient refused influenza vaccine today. 6. BMI 32.0-32.9,adult (Z68.32: Body mass index (more content not included)... Normal [facility] Comment on above: Result Comment: Elec tronically Signed By: Juancho GILLIS DO, FAAFP\.br\Date and Time Signed: 07/06/23 07:34 EDT\.br\Electronically Co-Signed By: Tha Khalil\.br\Date and Time Co-Signed: 07/05/23 09:25 EDT Ambulatory Visit Summaryon 1 Ambulatory Visit Summary RICARDO CORRIGAN :1945 Visit Date:07/05/2023 Ambulatory Visit Instructions Your Diagnosis Annual visit for general adult medical examination without abnormal findings Bradycardia HLD (hyperlipidemia) Primary hypertension Influenza vaccination declined BMI 32.0-32.9,adult Your Care Team Attending Physician - Betina Sampson MD Primary Care Physician - Betina Sampson MD This Is Your Medications List aspirin (Aspir 81) isosorbide mononitrate (isosorbide mononitrate 30 mg ER Tab) lisinopril (lisinopril 2.5 mg Tab) metoprolol (Lopressor 25 mg oral tablet) simvastatin (simvastatin 20 mg Tab) Procedures Performed Placement of stent in cardiac conduit (11/2017), Colonoscopy (2017), Carpal tunnel syndrome of left wrist, Carpal tunnel syndrome of right wrist, Kidney stone. Discharge Vitals Heart Rate (Peripheral) 56 Blood Pressure 110/70 Height 167 cm Height 66 in Weight 92 kg Weight 202.4 lb BMI 32.99 What to do next Scheduled Follow-Up Appointments Sunday 10:15 AM EDT With: PAPA DELONG, Zachary Meléndez Where: [facility] [address] [place] [address]- \.br\ Medications\.br \ What How Much When Instructions\.b r\ Unchanged aspirin (Aspir 81) 81 Milligram By Mouth Every day\.br\ Unchanged isosorbide mononitrate (isosorbide mononitrate 30 mg ER Tab) 1 Tablets By Mouth Once a day (in the morning)\.br\ Unchanged lisinopril (lisinopril 2.5 mg Tab) 1 Tablets By Mouth Every day\.br\ Unchanged metoprolol (Lopressor 25 mg oral tablet) 90 EA, TAKE 1/ 2 (ONE-HALF) TABLET BY MOUTH TWICE DAILY FOR 90 DAYS \.br\ Unchanged simvastatin (simvastatin 20 mg Tab) 1 Tablets By Mouth Once a day (at bedtime)\.br\ Allergies\.br\ No Known Medication Allergies\.br\ Problems\.br\ Ongoing - Any problem that you are currently receiving treatment for.\.br\ 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\.br\ Bradycardia\.br \ CAD in [place] artery\.br\ Chronic kidney disease, stage 3a\.br\ Closed displaced fracture of shaft of right clavicle\.br\ Dyspnea on exertion\.br\ Excessive ear wax\.br\ Hard of hearing\.br\ HLD (hyperlipidemia )\.br\ Hx of cardiac catheterization \.br\ Mild diastolic dysfunction\.br \ Mild persistent asthma without complication\.b r\ Primary hypertension\.b r\ Renal stone\.br\ Vitamin D deficiency\.br\ Education Materials\.br\ Chronic Kidney Disease, Adult\.br\ \.br\ Chronic kidney disease (CKD) occurs when the kidneys are slowly and permanently damaged over a long period of time. The kidneys are a pair of organs that do many important jobs in the body, including:\.br\ ? \.br\ Removing waste and extra fluid from the blood to make urine.\.br\ ? \.br\ Making hormones that maintain the amount of fluid in tissues and blood vessels.\.br\ ? \.br\ Maintaining the right amount of fluids and chemicals in the body.\.br\ A small amount of kidney damage may not cause problems, but a large amount of damage may make it hard or impossible for the kidneys to work right. Steps must be taken to slow kidney damage or to stop it from getting worse. If steps are not taken, the kidneys may stop working permanently (end-stage renal disease, or ESRD). Most of the time, CKD does not go away, but it can often be controlled. People who have CKD are usually able to live full lives.\.br\ What are the causes?\.br\ The most common causes of this condition are diabetes and high blood pressure (hypertension). \.br\ Other causes include:\.br\ ? \.br\ Cardiovascular diseases. These affect the heart and blood vessels.\.br\ ? \.br\ Kidney diseases. These include:\.br\ ? \.br\ Glomerulonephri tis, or inflammation of the tiny filters in the kidneys.\.br\ ? \.br\ Interstitial nephritis. This is swelling of the small tubes of the kidneys and of the surrounding structures.\.br \ ? \.br\ Polycystic kidney disease, in which clusters of fluid-filled sacs form within the kidneys.\.br\ ? \.br\ Renal vascular disease. This includes disorders that affect the arteries and veins of the kidneys.\.br\ ? \.br\ Diseases that affect the body's defense system (immune system).\.br\ ? \.br\ A problem with urine flow. This may be caused by:\.br\ ? \.br\ Kidney stones.\.br\ ? \.br\ Cancer.\.br\ ? \.br\ An enlarged prostate, in males.\.br\ ? \.br\ A kidney infection or urinary tract infection (UTI) that keeps coming back.\.br\ ? \.br\ Vasculitis. This is swelling or inflammation of the blood vessels.\.br\ What increases the risk?\.br\ Your chances of having kidney disease increase with age.\.br\ The following factors may make you more likely to develop this condition:\.br\ ? \.br\ A family history of kidney disease or kidney failure. Kidney failure means the kidneys can no longer work right.\.br\ ? \.br\ Certain genetic diseases.\.br\ ? \.br\ Taking medicines often that are damaging to the kidneys.\.br\ ? \.br\ Being around or being in contact with toxic substances.\.br \ ? \.br\ Obesity.\.br\ ? \.br\ A history of tobacco use.\.br\ What are the signs or symptoms?\.br\ Symptoms of this condition include:\.br\ ? \.br\ Feeling very tired (lethargic) and having less energy.\.br\ ? \.br\ Swelling, or edema, of the face, legs, ankles, or feet.\.br\ ? \.br\ Nausea or vomiting, or loss of appetite.\.br\ ? \.br\ Confusion or trouble concentrating.\ .br\ ? \.br\ Muscle twitches and cramps, especially in the legs.\.br\ ? \.br\ Dry, itchy skin.\.br\ ? \.br\ A metallic taste in the mouth.\.br\ ? \.br\ Producing less urine, or producing more urine (especially at night).\.br\ ? \.br\ Shortness of breath.\.br\ ? \.br\ Trouble sleeping.\.br\ CKD may also result in not having enough red blood cells or hemoglobin in the blood (anemia) or having weak bones (bone disease).\.br\ Symptoms develop slowly and may not be obvious until the kidney damage becomes severe. It is possible to have kidney disease for years without having symptoms.\.br\ How is this diagnosed?\.br\ This condition may be diagnosed based on:\.br\ ? \.br\ Blood tests.\.br\ ? \.br\ Urine tests.\.br\ ? \.br\ Imaging tests, such as an ultrasound or a CT scan.\.br\ ? \.br\ A kidney biopsy. This involves removing a sample of kidney tissue to be looked at under a microscope.\.br \ Results from these tests will help to determine how serious the CKD is.\.br\ How is this treated?\.br\ There is no cure for most cases of this condition, but treatment usually relieves symptoms and prevents or slows the worsening of the disease. Treatment may include:\.br\ ? \.br\ Diet changes, which may require you to avoid alcohol and foods that are high in salt, potassium, phosphorous, and protein.\.br\ ? \.br\ Medicines. These may:\.br\ ? \.br\ Lower blood pressure.\.br\ ? \.br\ Control blood sugar (glucose).\.br\ ? \.br\ Relieve anemia.\.br\ ? \.br\ Relieve swelling.\.br\ ? \.br\ Protect your bones.\.br\ ? \.br\ Improve the balance of salts and minerals in your blood (electrolytes). \.br\ ? \.br\ Dialysis, which is a type of treatment that removes toxic waste from the body. It may be needed if you have kidney failure.\.br\ ? \.br\ Managing any other conditions that are causing your CKD or making it worse.\.br\ Follow these instructions at home:\.br\ Medicines\.br\ ? \.br\ Take [id number] r and prescription medicines only as told by your health care provider. The amount of some medicines that you take may need to be changed.\.br\ ? \.br\ Do not take any new medicines unless approved by your health care provider. Many medicines can make kidney damage worse.\.br\ ? \.br\ Do not take any vitamin and mineral supplements unless approved by your health care provider. Many nutritional supplements can make kidney damage worse.\.br\ Lifestyle\.br\ \.br\ ? \.br\ Do not use any products that contain nicotine or tobacco, such as cigarettes, e-cigarettes, and chewing tobacco. If you need help quitting, ask your health care provider.\.br\ ? \.br\ If you drink alcohol:\.br\ ? \.br\ Limit how much you use to:\.br\ ? \.br\ 0?1 drink a day for women who are not .\.br\ ? \.br\ 0?2 drinks a day for men.\.br\ ? \.br\ Know how much alcohol is in your drink. In the [place] one drink equals one 12 oz bottle of beer (355 mL), one 5 oz glass of wine (148 mL), or one 1? oz glass of hard liquor (44 mL).\.br\ ? \.br\ [facility] Patient Educationon 07-05-20 23 Patient Education Caregiving Fall Prevention in the Home, Adult Falls can cause injuries and affect people of all ages. There are many simple things that you can do to make your home safe and to help prevent falls. Ask for help when making these changes, if needed. What actions can I take to prevent falls? General instructions ? Use good lighting in all rooms. Replace any light bulbs that burn out, turn on lights if it is dark, and use night-lights. ? Place frequently used items in [id number] places. Lower the shelves around your home if necessary. ? Set up furniture so that there are clear paths around it. Avoid moving your furniture around. ? Remove throw rugs and other tripping hazards from the floor. ? Avoid walking on wet floors. ? Fix any uneven floor surfaces. ? Add color or contrast paint or tape to grab bars and handrails in your home. Place contrasting color strips on the first and last steps of staircases. ? When you use a stepladder, make sure that it is completely opened and that the sides and supports are firmly locked. Have someone hold the ladder while you are using it. Do not climb a closed stepladder. ? Know where your pets are when moving through your home. What can I do in the bathroom? ? Keep the floor dry. Immediately clean up any water that is on the floor. ? Remove soap buildup in the tub or shower regularly. ? Use nonskid mats or decals on the floor of the tub or shower. ? Attach bath mats securely with double-sided, nonslip rug tape. ? If you need to sit down while you are in the shower, use a plastic, nonslip stool. ? Install grab bars by the toilet and in the tub and shower. Do not use towel bars as grab bars. What can I do in the bedroom? ? Make sure that a bedside light is easy to reach. ? Do not use oversized bedding that reaches the floor. ? Have a firm chair that has side arms to use for getting dressed. What can I do in the kitchen? ? Clean up any spills right away. ? If you need to reach for something above you, use a sturdy step stool that has a grab bar. ? Keep electrical cables out of the way. ? Do not use floor latvian or wax that makes floors slippery. If you must use wax, make sure that it is non-skid floor wax. What can I do with my stairs? ? Do not leave any items on the stairs. ? Make sure that you have a light switch at the top and the bottom of the stairs. Have them installed if you do not have them. ? Make sure that there are handrails on both sides of the stairs. Fix handrails that are broken or loose. Make sure that handrails are as long as the staircases. ? Install non-slip stair treads on all stairs in your home. ? Avoid having throw rugs at the top or bottom of stairs, or secure the rugs with carpet tape to prevent them from moving. ? Choose a carpet design that does not hide the edge of steps on the stairs. ? Check any carpeting to make sure that it is firmly attached to the stairs. Fix any carpet that is loose or worn. What can I do on the outside of my home? ? Use bright outdoor lighting. ? Regularly repair the edges of walkways and driveways and fix any cracks. ? Remove high doorway thresholds. ? Trim any shrubbery on the main path into your home. ? Regularly check that handrails are securely fastened and in good repair. Both sides of all steps should have handrails. ? Install guardrails along the edges of any raised decks or porches. ? Clear walkways of debris and clutter, including tools and rocks. ? Have leaves, snow, and ice cleared regularly. ? Use sand or salt on walkways during winter months. ? In the garage, clean up any spills right away, including grease or oil spills. What other actions can I take? ? Wear closed-toe shoes that fit well and support your feet. Wear shoes that have rubber soles or low heels. ? Use mobility aids as needed, such as canes, walkers, scooters, and crutches. ? Review your medicines with your health care provider. Some medicines can cause dizziness or changes in blood pressure, which increase your risk of falling. Talk with your health care provider about other ways that you can decrease your risk of falls. This may include working with a physical therapist or customer trainer to improve your strength, balance, and endurance. Where to find more information ? Centers for Disease Control and Prevention, [place]: www.cdc.gov ? [employer]: www.kai.nih.gov Contact a health care provider if: ? You are afraid of falling at home. ? You feel weak, drowsy, or dizzy at home. ? You fall at home. Summary ? There are many simple things that you can do to make your home safe and to help prevent falls. ? Ways to make your home safe include removing tripping hazards and installing grab bars in the bathroom. ? Ask for help when making these changes in your home. This information is not intended to replace advice given to you by your health ca (more content not included)... [facility] 07-05-2023 Screens [id number]#[id number] [facility] Ambulatory Visit Summaryon 0 06-11-2023 Ambulatory Visit Summary RICARDO CORRIGAN :1945 Visit Date:06/11/2023 Ambulatory Visit Instructions Your Diagnosis BMI 30.0-30.9,adult Class 1 obesity due to excess calories in adult Your Care Team Attending Physician - Betina Sampson MD. Primary Care Physician - Betina Sampson MD This Is Your Medications List Contact prescribing physician if questions or concerns aspirin (Aspir 81) isosorbide mononitrate (isosorbide mononitrate 30 mg ER Tab) lisinopril (lisinopril 2.5 mg Tab) metoprolol (Lopressor 25 mg oral tablet) simvastatin (simvastatin 20 mg Tab) [Image Removed: STOP]Stop taking these medications multivitamin with minerals (Calcium, Magnesium and Zinc oral tablet) Procedures Performed Placement of stent in cardiac conduit (11/2017), Colonoscopy (2017), Carpal tunnel syndrome of left wrist, Carpal tunnel syndrome of right wrist, Kidney stone. Discharge Vitals Temperature (Temporal Artery) 37.3 ?C Heart Rate (Peripheral) 62 Respiratory Rate 14 Blood Pressure 106/58 Height 172 cm Height 68 in Weight 91.6 kg Weight 201.52 lb BMI 30.96 What to do next Scheduled Follow-Up Appointments Sunday. 2023 10:15 AM EDT With: PAPA DELONG, Zachary Meléndez Where: [facility] Family Medicine Office/Clini c Noteon 06-11-2023 Family Medicine Office/Clinic Note HPI Staff Ricardo is a 77 year old male presenting for acute visit Patient went for hearing aids and they found something in his left ear told to see his doctor to find out what it. The dr there said not wax and he woudln't test him as he felt that would interfere with the test and needs to see PCP to get referral to ENT flu: refused Questions/Concerns: Pt would like referral to ENT History of Present Illness - Was told he did not have wax, but that he possibly had a mass in his ear. - Was asked to get a referral to ENT Review of Systems PHQ Score Initial Depression Screen Score: 0 Physical Exam Vitals & Measurements T: 37.3 ?C(Temporal Artery) HR: 62(Peripheral) RR: 14 BP: 106/58 SpO2: 96% HT: 68 in HT: 172 cm WT: 91.6 kg WT: 201.52 lb BMI: 30.96 excessive ear wax occluding the external ear canal B/L Assessment/Plan 1. Excessive ear wax (H61.20: Impacted cerumen, unspecified ear) - Ear wax was removed - Clean EAC B/L - Discussed cleaning - If still not able to test, we will send to ENT Ordered: E&M of Est. Patient Low 20-29 Min 65634 Remove impacted ear wax- 50411 2. BMI 30.0-30.9,adult (Z68.30: Body mass index [BMI] 30.0-30.9, adult) - BMI education given Ordered: E&M of Est. Patient Low 20-29 Min 28467 Remove impacted ear wax- 48979 3. Class 1 obesity due to excess calories in adult (E66.09: Other obesity due to excess calories) - As above Ordered: E&M of Est. Patient Low 20-29 Min 75857 Remove impacted ear wax- 13029 Follow-up No qualifying data available 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 Bradycardia CAD in [place] artery Chronic kidney disease, stage 3a Closed displaced fracture of shaft of right clavicle Dyspnea on exertion Excessive ear wax Hard of hearing HLD (hyperlipidemia) Hx of cardiac catheterization Mild diastolic dysfunction Mild persistent asthma without complication Primary hypertension Renal stone Vitamin D deficiency Historical No qualifying data Procedure/Surgical History Placement of stent in cardiac conduit (11/2017), Colonoscopy (2018), Carpal tunnel syndrome of left wrist, Carpal tunnel syndrome of right wrist, Kidney stone. Medications Aspir 81, 81 mg, Oral, Daily isosorbide mononitrate 30 mg ER Tab, 30 mg= 1 tab(s), Oral, qAM lisinopril 2.5 mg Tab, 2.5 mg= 1 tab(s), Oral, Daily Lopressor 25 mg oral tablet simvastatin 20 mg Tab, 20 mg= 1 tab(s), Oral, Once a day (at bedtime), 3 refills Allergies No Known Medication Allergies Social History Alcohol - Denies Alcohol Use, 01/17/2022 Substance Abuse - Denies Substance Abuse, 01/17/2022 Tobacco Never (less than 100 in lifetime) Tobacco Use:. Never Smokeless Tobacco Use:. Household tobacco concerns: No., 06/11/2023 Family History Diabetes mellitus type 2: Father. Immunizations Vaccine Date Status Comments influenza virus vaccine, inactivated - Not Given Postpone due to refusal influenza virus vaccine, inactivated - Not Given Postpone due to refusal SARS-CoV-2 mRNA (tozinameran 5y-11y) vac - Not Given Patient Refuses influenza virus vaccine, inactivated - Not Given Postpone due to refusal SARS-CoV-2 mRNA (tozinameran 5y-11y) vac - Not Given Patient Refuses Pt refuses Covid booster SARS-CoV-2 (COVID-19) Ad26 vaccine 10/05/2021 Recorded SARS-CoV-2 (COVID-19) Ad26 vaccine 11/30/2020 Recorded Normal [facility] Comment on above: Result Comment: Elec tronically Signed By: Oz DELONG, Betina Walker.br\Date and Time Signed: 06/11/23 12:15 EDT Patient Correspondenceon Patient Correspondence [id number]:127 Normal [facility] RAD - MISCon 06-06-2023 RAD - MIS [id number]#1.00CD:127 [facility] Lab Reportson 06-05-2023 Lab Reports [id number]#1.00CD:127 [facility] RAD - MISCon 05-28-2023 RAD - MISC [id number]#1.00CD:127 [facility] Operative Reporton 08-31-202 3 Operative Report [id number]#1.00CD:127 Normal [facility] Consent for Procedure/Surger yon 05-22-2023 Consent for Procedure/Surgery [id number]#1.00CD:127 [facility] Consent for Procedure/Surgery [id number]#1.00CD:127 [facility] Operative Reporton 3 Operative Report [id number]#1.00CD:127 [facility] Ambulatory Visit Summaryon 0 05-14-2023 Ambulatory Visit Summary RICARDO CORRIGAN :1945 Visit Date:05/14/2023 Ambulatory Visit Instructions Your Diagnosis Renal stone Hard of hearing Primary hypertension Chronic kidney disease, stage 3a Bradycardia CAD in [place] artery BMI 30.0-30.9,adult Class 2 obesity due to excess calories in adult Your Care Team Attending Physician - Betina Sampson MD Primary Care Physician - Betina Sampson MD. This Is Your Medications List Contact prescribing physician if questions or concerns aspirin (Aspir 81) cephalexin (cephalexin 250 mg Cap) isosorbide mononitrate (isosorbide mononitrate 30 mg ER Tab) lisinopril (lisinopril 2.5 mg Tab) metoprolol (Lopressor 25 mg oral tablet) multivitamin with minerals (Calcium, Magnesium and Zinc oral tablet) simvastatin (simvastatin 20 mg Tab) solifenacin (Vesicare 10 mg Tab) Procedures Performed Placement of stent in cardiac conduit (11/2017), Colonoscopy (2018), Carpal tunnel syndrome of left wrist, Carpal tunnel syndrome of right wrist. Discharge Vitals Temperature (Oral) 36.4 ?C Heart Rate (Peripheral) 64 Respiratory Rate 14 Blood Pressure 126/84 Height 172 cm Height 68 in Weight 90.4 kg Weight 198.88 lb BMI 30.56 Medications What How Much When Instructions Unchanged aspirin (Aspir 81) 81 Milligram By Mouth Every day Contact prescribing physician if questions or concerns Unchanged cephalexin (cephalexin 250 mg Cap) 1 Capsules By Mouth Every day Contact prescribing physician if questions or concerns Unchanged isosorbide mononitrate (isosorbide mononitrate 30 mg ER Tab) 1 Tablets By Mouth Once a day (in the morning) Contact prescribing physician if questions or concerns Unchanged lisinopril (lisinopril 2.5 mg Tab) 1 Tablets By Mouth Every day Contact prescribing physician if questions or concerns Unchanged metoprolol (Lopressor 25 mg oral tablet) 90 EA, TAKE 1/ 2 (ONE-HALF) TABLET BY MOUTH TWICE DAILY FOR 90 DAYS Contact prescribing physician if questions or concerns Unchanged multivitamin with minerals (Calcium, Magnesium and Zinc oral tablet) 1 Tablets By Mouth Every day Contact prescribing physician if questions or concerns Unchanged simvastatin (simvastatin 20 mg Tab) 1 Tablets By Mouth Once a day (at bedtime) Contact prescribing physician if questions or concerns Unchanged solifenacin (Vesicare 10 mg Tab) 1 Tablets By Mouth Every day Contact prescribing physician if questions or concerns Allergies No Known Medication Allergies Problems Ongoing - Any problem that you are currently receiving treatment for. 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 Bradycardia CAD in [place] artery Chronic kidney disease, stage 3a Closed displaced fracture of shaft of right clavicle Dyspnea on exertion Hard of hearing HLD (hyperlipidemia) Hx of cardiac catheterization Mild diastolic dysfunction Mild persistent asthma without complication Primary hypertension Renal stone Vitamin D deficiency Normal [facility] Family Medicine Office/Clini c Noteon 05-14-2023 Family Medicine Office/Clinic Note Chief Complaint follow up htn HPI Staff Please speak with patient about scheduling an AWV. patient presents for 6 month follow up htn Patient is here for follow up on hypertension. How often are you checking your blood pressure? doesn't check it What are your average readings?n/a _ Yearly BMP: Oct 2022 questions/concerns: hearing aid on the blink and he cannot hear, right one is popping on him and left one he says cannot hear out of at all History of Present Illness - Here for ER follow up - No issues today - Found to have a renal stone - Seeing urology - Stent in place - Has not passed the stone yet. Review of Systems PHQ Score Initial Depression Screen Score: 0 Physical Exam Vitals & Measurements T: 36.4 ?C(Oral) HR: 64(Peripheral) RR: 14 BP: 126/84 SpO2: 96% HT: 68 in HT: 172 cm WT: 90.4 kg WT: 198.88 lb BMI: 30.56 General: alert, no acute distress ENMT: oral mucosa moist, Cardiovascular: regular rate and rhythm, normal peripheral perfusion Respiratory: Lungs CTA, respirations non labored Extremities: no deformity, no trauma Neurological: oriented x 4, LOC appropriate for age, CN II-XII intact, motor strength equal & normal bilaterally, speech normal Abdomen: Soft, Nontender, Non-distended, + BS Assessment/Plan 1. Renal stone (N20.0: Calculus of kidney) - Stents in place. - No pain - Following with urology Ordered: Body Mass Index (BMI) documented 3008F Current tobacco non-user 1036F Depression Screening Negative 3352F Most recent diastolic blood pressure 80-89 mm Hg 3079F Patient screen for fall risk: no falls in last year or 1 fall with no injury in last year 1101F Systolic BP <130 mm Hg (Most Recent) 3074F 2. Hard of hearing (H91.90: Unspecified hearing loss, unspecified ear) 3. Primary hypertension (I10: Essential (primary) hypertension) - At goal today. - No issues with his meds. Ordered: Body Mass Index (BMI) documented 3008F Current tobacco non-user 1036F Depression Screening Negative 3352F Most recent diastolic blood pressure 80-89 mm Hg 3079F Patient screen for fall risk: no falls in last year or 1 fall with no injury in last year 1101F Systolic BP <130 mm Hg (Most Recent) 3074F 4. Chronic kidney disease, stage 3a (N18.31: Chronic kidney disease, stage 3a) - No issues. - Stable Ordered: Body Mass Index (BMI) documented 3008F Current tobacco non-user 1036F Depression Screening Negative 3352F Most recent diastolic blood pressure 80-89 mm Hg 3079F Patient screen for fall risk: no falls in last year or 1 fall with no injury in last year 1101F Systolic BP <130 mm Hg (Most Recent) 3074F 5. Bradycardia (R00.1: Bradycardia, unspecified) - WNL - No issues Ordered: Body Mass Index (BMI) documented 3008F Current tobacco non-user 1036F Depression Screening Negative 3352F Most recent diastolic blood pressure 80-89 mm Hg 3079F Patient screen for fall risk: no falls in last year or 1 fall with no injury in last year 1101F Systolic BP <130 mm Hg (Most Recent) 3074F 6. CAD in [place] artery (I25.10: Atherosclerotic heart disease of [place] coronary artery without angina pectoris) - Denies CP today. - Follow up with Cardiology Ordered: Body Mass Index (BMI) documented 3008F Current tobacco non-user 1036F Depression Screening Negative 3352F Most recent diastolic blood pressure 80-89 mm Hg 3079F Patient screen for fall risk: no falls in last year or 1 fall with no injury in last year 1101F Systolic BP <130 mm Hg (Most Recent) 3074F 7. BMI 30.0-30.9,adult (Z68.30: Body mass index [BMI] 30.0-30.9, adult) Ordered: Body Mass Index (BMI) documented 3008F Current tobacco non-user 1036F Depression Screening Negative 3352F Most recent diastolic blood pressure 80-89 mm Hg 3079F Patient screen for fall risk: no falls in last year or 1 fall with no injury in last year 1101F Systolic BP <130 mm Hg (Most Recent) 3074F 8. Class 2 obesity due to excess calories in adult (E66.09: Other obesity due to excess calories) Ordered: Body Mass Index (BMI) documented 3008F Current tobacco non-user 1036F Depression Screening Negative 3352F Most recent diastolic blood pressure 80-89 mm Hg 3079F Patient screen for fall risk: no falls in last year or 1 fall with no injury in last year 1101F Systolic BP <130 mm Hg (Most Recent) 3074F Follow-up No qualifying data available 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 Bradycardia CAD in [place] artery Chronic kidney disease, stage 3a Closed displaced fracture of shaft of right clavicle Dyspnea on exertion Hard of hearing HLD (hyperlipidemia) Hx of cardiac catheterization Mild diastolic dysfunction Mild persistent asthma without complication Primary hypertension Renal stone Vitamin D deficiency Historical No qualifying data Procedure/Surgical History Placement of stent in cardiac conduit (12/11 (more content not included)... Normal [facility] Comment on above: Result Comment: Elec tronically Signed By: Oz DELONG, Betina Walker.br\Date and Time Signed: 05/14/23 07:10 EDT RAD - MISCon 05-12-2023 [facility] [id number]:127 Normal [facility] RAD - MISCon 05-10-2023 [facility] [id number]:127 Normal [facility] 05-07-[address] [facility] Case Information Case Priority: None Programs: -- Referral Source: Device Sales Consultant Referral Reason: Care coordination Case Type: Transition Care Management Risk Score: -- Case Status: Enrolled (April 16, 2023) Date Assigned: April 16, 2023 Assigned By: Komal Walker RN Date Enrolled: April 16, 2023 Assigned Primary Personnel: Komal Walker RN Assigned Secondary Personnel: -- Case Physician: Betina Sampson MD Ongoing 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 Bradycardia CAD in [place] artery Chronic kidney disease, stage 3a Closed displaced fracture of shaft of right clavicle Dyspnea on exertion HLD (hyperlipidemia) Hx of cardiac catheterization Mild diastolic dysfunction Mild persistent asthma without complication Primary hypertension Renal stone Vitamin D deficiency Historical No qualifying data Procedure/Surgical History Placement of stent in cardiac conduit (11/2017), Colonoscopy (2017), Carpal tunnel syndrome of left wrist, Carpal tunnel syndrome of right wrist. Home Medications Aspir 81, 81 mg, Oral, Daily Calcium, Magnesium and Zinc oral tablet, 1 tab(s), Oral, Daily cephalexin 250 mg Cap, 250 mg= 1 cap(s), Oral, Daily isosorbide mononitrate 30 mg ER Tab, 30 mg= 1 tab(s), Oral, qAM lisinopril 2.5 mg Tab, 2.5 mg= 1 tab(s), Oral, Daily Lopressor 25 mg oral tablet simvastatin 20 mg Tab, 20 mg= 1 tab(s), Oral, Once a day (at bedtime) Vesicare 10 mg Tab, 10 mg= 1 tab(s), Oral, Daily Allergies No Known Medication Allergies Social History Alcohol - Denies Alcohol Use, 01/17/2022 Substance Abuse - Denies Substance Abuse, 01/17/2022 Tobacco Never (less than 100 in lifetime) Tobacco Use:. Never Smokeless Tobacco Use:. Household tobacco concerns: No., 04/23/2023 Family History Diabetes mellitus type 2: Father. Screenings and Assessments 04/16/23 12:15:00 Result Name Value Comment Phone Call Monitoring Consent Agreed to continue call Phone Verification Patient Information Full name, street address and date of verified CM Program Enrollment Provides verbal consent for enrollment Goals and Interventions Care Plan Progress Note Called patient for final TCM #4 follow-up as patient has appointment with Dr. Sampson on 05/14/23. Patient states he has had some improvement in urinary frequency and pain is much improved . 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 Patient denies any new or further needs at this time. Communication Events Date: May 07, 2023 Method: Phone call Type: Outbound Duration (min): 2 Outcome: Case discussion Contact Type: dental scheduling coordinator Contact Name: Komal Walker RN Notes: Called patient for final TCM #4 as patient has an appointment with Dr. Sampson on 05/14/23, see FT summary note. Created By: Komal Walker RN Date: April 30, 2023 Method: Phone call Type: Outbound Duration (min): 3 Outcome: Case discussion Contact Type: dental scheduling coordinator Contact Name: Komal Walker RN Notes: TCM #3, see Ft summary note. Created By: Komal Walker RN Date: April 20, 2023 Method: Phone call Type: Outbound Duration (min): 6 Outcome: Case discussion Contact Type: dental scheduling coordinator Contact Name: Komal Walker RN Notes: TCM #2, see message center note. Created By: Komal Walker RN Date: April 16, 2023 Method: Phone call Type: Outbound Duration (min): 5 Outcome: Case discussion Contact Type: dental scheduling coordinator Contact Name: Komal Walker RN Notes: TCM #1, see FT summary note. Created By: Komal Walker RN [facility] [id number]:127 [facility] 04-30-20 [facility] Case Information Case Priority: None Programs: -- Referral Source: Device Sales Consultant Referral Reason: Care coordination Case Type: Transition Care Management Risk Score: -- Case Status: Enrolled (April 16, 2023) Date Assigned: April 16, 2023 Assigned By: Komal Walker RN Date Enrolled: April 16, 2023 Assigned Primary Personnel: Komal Walker RN Assigned Secondary Personnel: -- Case Physician: Betina Sampson MD Problems Ongoing 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 Bradycardia CAD in [place] artery Chronic kidney disease, stage 3a Closed displaced fracture of shaft of right clavicle Dyspnea on exertion HLD (hyperlipidemia) Hx of cardiac catheterization Mild diastolic dysfunction Mild persistent asthma without complication Primary hypertension Renal stone Vitamin D deficiency Historical No qualifying data Procedure/Surgical History Placement of stent in cardiac conduit (11/2017), Colonoscopy (2017), Carpal tunnel syndrome of left wrist, Carpal tunnel syndrome of right wrist. Home Medications Aspir 81, 81 mg, Oral, Daily Calcium, Magnesium and Zinc oral tablet, 1 tab(s), Oral, Daily cephalexin 250 mg Cap, 250 mg= 1 cap(s), Oral, Daily isosorbide mononitrate 30 mg ER Tab, 30 mg= 1 tab(s), Oral, qAM lisinopril 2.5 mg Tab, 2.5 mg= 1 tab(s), Oral, Daily Lopressor 25 mg oral tablet simvastatin 20 mg Tab, 20 mg= 1 tab(s), Oral, Once a day (at bedtime) Vesicare 10 mg Tab, 10 mg= 1 tab(s), Oral, Daily Allergies No Known Medication Allergies Social History Alcohol - Denies Alcohol Use, 01/17/2022 Substance Abuse - Denies Substance Abuse, 01/17/2022 Tobacco Never (less than 100 in lifetime) Tobacco Use:. Never Smokeless Tobacco Use:. Household tobacco concerns: No., 04/23/2023 Family History Diabetes mellitus type 2: Father. Screenings and Assessments 04/16/23 12:15:00 Result Name Value Comment Phone Call Monitoring Consent Agreed to continue call Phone Verification Patient Information Full name, street address and date of verified CM Program Enrollment Provides verbal consent for enrollment Goals and Interventions Care Plan Progress Note Called patient for continued TCM #3 follow-up. Patient states he is feeling better, having less pain from stent and can lay down now to sleep-. Patient states urine looks light yellow in toilet, patient continues to urinate every 30-60 minutes at night and occasionally can go 2 hours between. Patient having stent removed on 05/03/23. No new needs identified today. Communication Events Date: April 30, 2023 Method: Phone call Type: Outbound Duration (min): 3 Outcome: Case discussion Contact Type: dental scheduling coordinator Contact Name: Komal Walker RN Notes: TCM #3, see Ft summary note. Created By: Komal Walker RN Date: April 20, 2023 Method: Phone call Type: Outbound Duration (min): 6 Outcome: Case discussion Contact Type: dental scheduling coordinator Contact Name: Komal Walker RN Notes: PAT #2, see message center note. Created By: Komal Walker RN Date: April 16, 2023 Method: Phone call Type: Outbound Duration (min): 5 Outcome: Case discussion Contact Type: dental scheduling coordinator Contact Name: Komal Walker RN Notes: TCM #1, see FT summary note. Created By: Komal Walker RN [facility] Family Medicine Office/Clini c Noteon 04-24-2023 Family Medicine Office/Clinic Note Chief Complaint hospital follow up HPI Staff Patient presents for [facility] hospital follow up Admitted: 04/07/23 Discharged: 04/13/23 Dx ureterolithiasis, hydronephrosis rt kidney Had stent in kidney on 04/07 was an emergent and was supposed to have stent out the other day and took his baby asa by mistake so they couldn't do it. rescheduled to 05/03 to have it out questions/concerns: none, just needs followed up from the hospital History of Present Illness Ricardo Corrigan is a 77-year-old male who presents today for a follow-up evaluation. He is accompanied by an adult female. He states that he has trouble sleeping due to frequent urination. He denies any pain. He has increased episodes of urination occasionally. The adult female states that they did not realize that he cannot take baby aspirin for a week before he has surgery. They received a letter in the mail the following day explaining everything they were not supposed to do. Dr. Chung is taking care of him. The adult female states that he had a little bit of blood yesterday or day before. She did it right after they put the stent in and then quite a bit outside. That night she seemed to have a little bit. She has not seen the stone come out yet. The stone is 8 to 9 cm. Review of Systems PHQ Score Initial Depression Screen Score: 0 Physical Exam Vitals & Measurements T: 36.8 ?C(Oral) HR: 60(Peripheral) RR: 14 BP: 112/68 SpO2: 96% HT: 68 in HT: 172.0 cm WT: 91.0 kg WT: 200.2 lb BMI: 30.76 General: alert, no acute distress Cardiovascular: regular rate and rhythm, normal peripheral perfusion Respiratory: Lungs CTA, respirations non labored Extremities: no deformity, no trauma Neurological: oriented x 4, LOC appropriate for age, CN II-XII intact, motor strength equal & normal bilaterally, speech normal Assessment/Plan 1. Renal stone (N20.0: Calculus of kidney) The patient still has a stent placed. Patient is not in any pain at this time, just has a lot of urination. We will continue to monitor and follow along with urology. 2. Chronic kidney disease, stage 3a (N18.31: Chronic kidney disease, stage 3a) Concern for worsening renal function given the stone. We will continue to monitor. 3. 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 (I12.9: Hypertensive chronic kidney disease with stage 1 through stage 4 chronic kidney disease, or unspecified chronic kidney disease) Patient is at goal, but we will continue to monitor secondary to the stage 3a chronic kidney disease. 4. BMI 30.0-30.9,adult (Z68.30: Body mass index [BMI] 30.0-30.9, adult) BMI education given. 5. Class 1 obesity due to excess calories in adult (E66.09: Other obesity due to excess calories) As above. Reviewed TCM calls and documentation. Portions of this record may have been created with voice recognition artificial intelligence software, specifically Voltaire, [employer] and or [employer]ix. Substitutions may have occurred due to the inherent limitations of voice recognition and artificial intelligence software. Documentation services were performed after patient or guardian consented to allow [employer] to record this visit. RICKIE rfid specialist and provider reviewed before signing. RICKIE: Honey Phoebe Densing Follow-up No qualifying data available 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 Bradycardia CAD in [place] artery Chronic kidney disease, stage 3a Closed displaced fracture of shaft of right clavicle Dyspnea on exertion HLD (hyperlipidemia) Hx of cardiac catheterization Mild diastolic dysfunction Mild persistent asthma without complication Primary hypertension Renal stone Vitamin D deficiency Historical No qualifying data Procedure/Surgical History Placement of stent in cardiac conduit (11/2017), Colonoscopy (2018), Carpal tunnel syndrome of left wrist, Carpal tunnel syndrome of right wrist. Medications Aspir 81, 81 mg, Oral, Daily Calcium, Magnesium and Zinc oral tablet, 1 tab(s), Oral, Daily cephalexin 250 mg Cap, 250 mg= 1 cap(s), Oral, Daily isosorbide mononitrate 30 mg ER Tab, 30 mg= 1 tab(s), Oral, qAM lisinopril 2.5 mg Tab, 2.5 mg= 1 tab(s), Oral, Daily Lopressor 25 mg oral tablet simvastatin 20 mg Tab, 20 mg= 1 tab(s), Oral, Once a day (at bedtime) Vesicare 10 mg Tab, 10 mg= 1 tab(s), Oral, Daily Allergies No Known Medication Allergies Social History Alcohol - Denies Alcohol Use, 01/17/2022 Substance Abuse - Denies Substance Abuse, 01/17/2022 Tobacco Never (less than 100 in lifetime) Tobacco Use:. Never Smokeless Tobacco Use:. Household tobacco concerns: No., 04/23/2023 Family History Diabetes mellitus type 2: Father. Immunizations Vaccine Date Status Comments influenza virus vaccine, inactivated - Not Given Postpone due to refusal SARS-CoV-2 mRNA (tozinameran 5y-11y) vac - Not Given Patient Refuses influenza viru (more content not included)... Normal [facility] Comment on above: Result Comment: Elec tronically Signed By: Betina Sampson MD\.br\Date and Time Signed: 04/24/23 08:33 EDT\.br\Electronically Co-Signed By: Teodora Thibodeaux\.br\Date and Time Co-Signed: 04/23/23 17:35 EDT Ambulatory Visit Summaryon 0 04-23-2023 Ambulatory Visit Summary RICARDO CORRIGAN :1945 Visit Date:04/23/2023 Ambulatory Visit Instructions Your Diagnosis Renal stone Chronic kidney disease, stage 3a 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 BMI 30.0-30.9,adult Class 1 obesity due to excess calories in adult Your Care Team Attending Physician - Betina Sampson MD Primary Care Physician - Betina Sampson MD This Is Your Medications List aspirin (Aspir 81) cephalexin (cephalexin 250 mg Cap) isosorbide mononitrate (isosorbide mononitrate 30 mg ER Tab) lisinopril (lisinopril 2.5 mg Tab) metoprolol (Lopressor 25 mg oral tablet) multivitamin with minerals (Calcium, Magnesium and Zinc oral tablet) simvastatin (simvastatin 20 mg Tab) solifenacin (Vesicare 10 mg Tab) Procedures Performed Placement of stent in cardiac conduit (11/2017), Colonoscopy (2017), Carpal tunnel syndrome of left wrist, Carpal tunnel syndrome of right wrist. What to do next Scheduled Follow-Up Appointments Sunday 8:00 AM EDT With: Where: [facility] Primary Care Normal [address] [place] [address]- \.br\ Medications\.br \ What How Much When Instructions\.b r\ Unchanged aspirin (Aspir 81) 81 Milligram By Mouth Every day\.br\ Unchanged cephalexin (cephalexin 250 mg Cap) 1 Capsules By Mouth Every day\.br\ Unchanged isosorbide mononitrate (isosorbide mononitrate 30 mg ER Tab) 1 Tablets By Mouth Once a day (in the morning)\.br\ Unchanged lisinopril (lisinopril 2.5 mg Tab) 1 Tablets By Mouth Every day\.br\ Unchanged metoprolol (Lopressor 25 mg oral tablet) 90 EA, TAKE 1/ 2 (ONE-HALF) TABLET BY MOUTH TWICE DAILY FOR 90 DAYS \.br\ Unchanged multivitamin with minerals (Calcium, Magnesium and Zinc oral tablet) 1 Tablets By Mouth Every day\.br\ Unchanged simvastatin (simvastatin 20 mg Tab) 1 Tablets By Mouth Once a day (at bedtime)\.br\ Unchanged solifenacin (Vesicare 10 mg Tab) 1 Tablets By Mouth Every day\.br\ Allergies\.br\ No Known Medication Allergies\.br\ Problems\.br\ Ongoing - Any problem that you are currently receiving treatment for.\.br\ 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\.br\ Bradycardia\.br \ CAD in [place] artery\.br\ Chronic kidney disease, stage 3a\.br\ Closed displaced fracture of shaft of right clavicle\.br\ Dyspnea on exertion\.br\ HLD (hyperlipidemia )\.br\ Hx of cardiac catheterization \.br\ Mild diastolic dysfunction\.br \ Mild persistent asthma without complication\.b r\ Primary hypertension\.b r\ Renal stone\.br\ Vitamin D deficiency\.br\ \.br\ [facility] RAD - MISCon 04-23-2023 RAD - [facility] [id number]#1.00CD:127 Normal [facility] [id number]#1.00CD:127 Normal [facility] [id number]#1.00CD:127 [facility] Consent for Procedure/Surger yon 04-19-2023 Consent for Procedure/Surgery [id number]#1.00CD:127 Normal [facility] ECG 12-Leadon 04-18-2023 ECG 12-Lead [id number]#1.00CD:127 Normal [facility] Lab Reportson 04-18-2023 Lab Reports [id number]#1.00CD:127 Normal [facility] RAD - MISCon 04-18-2023 RAD - MIS [id number]#1.00CD:127 Normal [facility] RAD - MISCon 04-17-2023 RAD - MIS [id number]#1.00CD:127 Normal [facility] Population Healthon 04-16-20 Population Health Case Information Case Priority: None Programs: -- Referral Source: Device Sales Consultant Referral Reason: Care coordination Case Type: Transition Care Management Risk Score: -- Case Status: Enrolled (April 16, 2023) Date Assigned: April 16, 2023 Assigned By: Komal Walker RN Date Enrolled: April 16, 2023 Assigned Primary Personnel: Komal Walker RN Assigned Secondary Personnel: -- Case Physician: Betina Sampson MD Ongoing 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 Bradycardia CAD in [place] artery Chronic kidney disease, stage 3a Closed displaced fracture of shaft of right clavicle Dyspnea on exertion HLD (hyperlipidemia) Hx of cardiac catheterization Mild diastolic dysfunction Mild persistent asthma without complication Primary hypertension Vitamin D deficiency Historical No qualifying data Procedure/Surgical History Placement of stent in cardiac conduit (11/2017), Colonoscopy (2017), Carpal tunnel syndrome of left wrist, Carpal tunnel syndrome of right wrist. Home Medications Aspir 81, 81 mg, Oral, Daily Calcium, Magnesium and Zinc oral tablet, 1 tab(s), Oral, Daily cephalexin 250 mg Cap, 250 mg= 1 cap(s), Oral, Daily isosorbide mononitrate 30 mg ER Tab, 30 mg= 1 tab(s), Oral, qAM lisinopril 2.5 mg Tab, 2.5 mg= 1 tab(s), Oral, Daily Lopressor 25 mg oral tablet simvastatin 20 mg Tab, 20 mg= 1 tab(s), Oral, Once a day (at bedtime) Vesicare 10 mg Tab, 10 mg= 1 tab(s), Oral, Daily Allergies No Known Medication Allergies Social History Alcohol - Denies Alcohol Use, 01/17/2022 Substance Abuse - Denies Substance Abuse, 01/17/2022 Tobacco Never (less than 100 in lifetime) Tobacco Use:. Never Smokeless Tobacco Use:. Household tobacco concerns: No., 11/13/2022 Family History Diabetes mellitus type 2: Father. Screenings and Assessments 04/16/23 12:15:00 Result Name Value Comment Phone Call Monitoring Consent Agreed to continue call Phone Verification Patient Information Full name, street address and date of verified CM Program Enrollment Provides verbal consent for enrollment Goals and Interventions Care Plan Progress Note Admit Date: 04/07/23 [facility] Date of Discharge: 04/13/23 Follow-up appointment scheduled? none at this time Did you understand your discharge instructions? yes Are you able to follow them? yes Did you receive new medications? yes, Cephalexin 250 mg daily, Vesicare 10 mg daily Have you filled the Rx's? yes Are you taking them as prescribed? yes Are you having difficulty eating or swallowing your pills? no Are you having any stomach upset, diarrhea or constipation? no How are you sleeping? not well due to frequent urination Are you having any pain? yes, rates flank pain 5 out of 10 Do you have everything you need at home to care for yourself? yes Do you have Home Health?no Called patient for Transitional Care Management following hospitalization for ureterolithiasis, hydronephrosis right kidney and flank pain. Patient underwent cystoscopy with stent placement. Patient is scheduled for another procedure on 04/19/23 for stent and stone removal at [facility]. Reviewed discharge instructions and medications reconciled with patient, discharge list and EHR. Reviewed purpose and side effects of new medications. Patient complains of flank pain with movement and rates pain 5 out of 10. Patient states he is tolerating pain. Patient states he is urinating every 30-60 minutes and due to frequent urination is not sleeping well. Patient will schedule follow-up with Dr. Sampson after procedure on 04/19/23 and CCN will call again on 04/20/23. TCM services explained and patient unable to take direct phone number as he is driving at time of call. Communication Events Date: April 16, 2023 Method: Phone call Type: Outbound Duration (min): 5 Outcome: Case discussion Contact Type: dental scheduling coordinator Contact Name: Komal Walker RN Notes: TCM #1, see FT summary note. Created By: Komal Walker RN [facility] Consent for Procedure/Surger yon 04-13-2023 Consent for Procedure/Surgery [id number]#1.00CD:127 [facility] Insurance Correspondence Off ice04-13-2023 Insurance Correspondence Office [id number]#1.00CD:127 [facility] Lab Reportson 04-13-2023 Lab Reports [id number]#1.00CD:127 [facility] Outside [facility] Correspo ndenceon 04-12-2023 Outside [facility] Correspondence [id number]#1.00CD:127 Normal [facility] Outside [facility] Correspondence [id number]#1.00CD:127 Normal [facility] RAD - CT Reporton 04-12-20[address] RAD - CT Report [id number]#1.00CD:127 Normal [facility] Consultation Noteon 04-11-20 23 Consultation Note [id number]#1.00CD:127 Normal [facility] Operative Reporton Operative Report [id number]#1.00CD:127 [facility] Office Visiton 01-05-2023 Follow-up visit [id number] Ricardo Corrigan 1945 M Date Provider Department Center 01/05/2023 SYDNEE DANIELS CARD [facility] No family history on file Level of Service:79784 [place] OFFICE/OUTPATIENT ESTABLISHED MOD MDM 30-39 MIN Reason for Visit and Comments: Coronary Artery Disease [187] Hypertension [927169] Hyperlipidemia [182] Normal [facility] Coding Summary.on 11-14-2022 Coding Summary. CD:[id number] Gh0bWw +PGhlYWQ+OP2TVKAlH60ltOOqn Z9MT4lLEO1PRFIZHSLWNV9ZJM8 dlFQ2ZGukA5EzhvRa YteasHZbGI84MEd7NLD0sRhtQQ uyoX5yeNObF2y5NiVeAJ06rU11 RUvbAWWjWwQ9PzXsjchmhEBb M7vmCwVceWKsGzu+PHRhYmxlIH emRUAuUMjwPZSpFmUcyNtnUW7r Qa6rTVNfWCOtmVwbjPWsQdUb q4pdYKDhGRzpBR7wyYpcY6ShwP K5DDHwh3b9Aj96rJO+PHRkIHN0 kLgwVNsnn995JgQje1mnJVK8 gMQpYRehVBN6M96wd6C2GOUiAO BhEZT1eJD0wN5cbJbsickkR1Df fHOfYmU2ZQV9bROtcD9ilXnl gsaskM5kWfm+J77IIY2YTHQTUX 5CWqr9C9XhNbltoCM+ZD00GCGj LD02bJZwiSKtk1tkuQd7AvNw XRHsHCV5xByeOHfci7OtMABlD8 3wsHCpx6D5VWGagGmsaMWwMtUx pED0nB8hLAarvmdze9flemvy Oxybr1ggyf75tG05C71fVCdpEV GwSSZ9LIXnSXWirZdybw2uyA0w Ii8+NYqdo8fbx5ksqRm1NyUt SFIndgZrzSqoZFW1v3CkFc28E5 YabYmga4XdCdn9vw08iILoy7N0 eJL7OHxzXESgqP4qLNhqGiZ4 PRSsIlFclV48jHVtZZmnRl2urU typZtzIY8vHHNdhuqvDFEftW2z XLJleORprNdlML2vMLVdhqld j237ZaDjTUC8NTWwuCAuC1TtdN 9dJtRzJYAgEZCqH8YchHFuDIkc W341UPibKnY1YYKanlBrJ7Dz EROcgPueUjG5n2L0Av9Ne1Kxhu xeDMI8MMwcEALhIkLzBhVmSaB2 I5OvZnh2NMZtrOipDJ6pV4Kt REGrswxrumeklMY5FSPeHHUnpE 85dBGtRSguQt3xz2E0u945OBPb PAXoqG39Pf9ehDfwGKYamALQ vD9tvuygf3nwkrbbQeSuFVWtOK t4NIa0UXYpcQfcQuWxHCN0RbU7 ZBV5hGWfmV5ctRuhmbjjrT8i Oyc+J53kmO8eFDZ3ABS0umbfCY HadrSqXV49XJ60C5ObYyeuuAUq bGU+PPRwtqCxnWiwBZ8kFoMo i7xks4KtBAsoB9ViJANpHLmbPj w8RMJmLUV6zIM7aI5jANLjEQzc t5K2mUA6J8TdskHfxu2qb1qs AMUbMVsrO43cuSZgm2Q4BZXvaX L9XFLpcGchSvDvwN70Bdj+PGNv eDznf6MyTcixs6tis3vwyDa7 LhUaHYAopwXagWqhLQR3j4XqCj 60G38rPEvcEAQhUUQjAOPfAEEd dOeofl0amK1aQg8+PGNvbCB3 lEE7yW6hRALeLhS7TNgiP655Kg FfkBYkZbvxp7jxf2yzqEq8PhOf CBMgnqNpdKpeXKQ6q5CvFc00 B59eKPxoHSKdXIHyPMFfFUHkbF uquw4ceE1nIh6+TM3bt0jezj31 rM50jAG+ZMPpZRH1xJpnGDjy TYRarZ9hGTrzDnF3PZHdAkYbwO 36uIEtXDdbSk2hhVkohHfbKI6e HDRwmluqq892PmKty7wnDKCf dNMsMAjjYKX0B05ft2B3AOWrGC BlDUV2eIB6lA9kuGfhlcmuxFVu rVrjwjJfqUnbRTcyPIviY810 IHRvcDsnPlBhdGllbnQgTmFtZT c9G2YzHue0YIDtkIwnVT7utHQo IXddGw7wuUeoaXleKP9nAWGd aeknj296PzNjc0yuYLHkhKKgSO vvPFE9F47us8J6XCVqMAQmRBH4 iJZ7vQ7uwAkubplxbAWgnVnx ewVfpCukMWesRWuwZ180XECybS saDhRfiwXjSMWwoKC3FB27LU65 rGBoz5O2yTG2H1IsSPLmazmi uwxcrAE9AXTrXAJxqY50Jz6usX rgMs3dVZLhBHH5GXKsjABiK7Sv gA4rUfBgPYRzCLHaZ7LilIDm HRdqE087LUxpIsZ9BYBzxeTxX7 CpUDClxBkmLwK1y6R9Xn4BC0P1 XM93FL28hLZyz7U6gEL4K2Kh YJUwtyjxrzlojZZ5IUMkVWZjhS 33Mn3lvIdrKp1tZZEdVQK0TIOj qFOzE8AfdI7nFiZoLOAuKSRs F7UxjZHvHKjnQ071FHmjZzO6ZT JlfrIqP7EaOSLssVysAaK9p4L0 Lb7MNEn7FN02KL93zGUnx1U7 lJV3W1ImJDGsjcefjsxteHM1LV DvKHQkuL39Fv5ehCfzIz6wIYGf VLC7WWNilFLzV6WujC0nXbSm QRLhJHBwE7PzcLDoGOkvN842TE deJyW4IIMydeXkN3YfCYAdfTug MwE3y7F5Nu5XCVPbCY00UGB9 xEQ5GF50KB09O3KpXqktlSIlzI U+PHRhYmxlIHdpZHRoPScxMDAl UfHfbCyqQI8wTv9fQHGzRVFx wHqqeWMpVwOio5gnQGObBLjyOI 4fqBlqE8NwvFF6AUDco3t4Qx49 L39cV4HswBX+GMHcuOO7vJD3 zA8fJbEgWyT3CEekJ878FxTddK PwHnxeg6fkl3kuoFr6YeY4GMOx wkEnjCmsNFM6o3UjGm08G06t IHdpZHRoPSIxNSUiIHZhbGlnbj 1fdL6cKb6+IGIwdNQ5xFI9kE4i BhAeBlN4BCloD187GhFxgXJi Yvolk7qii6jgjXr7XiHpMCIszx VdsEreNDR9g8NpWq43W7RwbVeb m1MzNfh9qy40xBSvf0M3tSF9 Y9FiUELsppnjrZZxfNlpHH1pMP UbjlnjBDFmlN2jSHPsY3b2EdVk PkI5QBleQ3ZhorK1GAHaxSGt QMlgZDP2Z43hy5R4YJNgHTChXO G4iLU9zU9sxScahfwjuWXawQnd uvZauVdtJDfgCHthM756MFOy tKalBFQtzF7fTXPdwJTmvLyaAL 8cKTFvdtnqFagCOTjWMPkzY8PI MESMNO49LW73iWCtq3Y6iEU5 O9NoHODlwvuofhafgPH6BRGkOF SnmY95jLSrIGqcXf5yb2G6c770 SAOpHAGdlY02Gx3ciBctBLQw dDVLlE1ysnwoh8rmmzubQpPrSP CcHSs9XPr4SXTvqGwmTeXdDUL7 OdN0AAB7aHCjfE9cvEpngrwp iW2sTkj+CEQfJCyeLRg6UNcedB Q+IGWpFJC1vMdyGSknCTVhtM7z OGLfI6s2TlJbTlN7QWlaF3Tl PNVvebrlLl79oB4aHlYoFtT1TR iiP7UkfvS0QMZudSEhJXocFVY4 Z51pk6Z5RLRpXLKrHFQ5lMK5 hK0pzXhabibrfYOxwMflikIhqB wpFBorTHybA950COIvhXanBzr9 LTaoQTTcBP32PD70vVLvy8T2 dVG8R2PjYYIuetrfpemnnZO3DL HuWSQbgY19oDUjQQvySx5sf4B1 e138YJVxTIEudN55Cu8thBbj HRNkbLXNhQ9iedsoy8akdyqiRx HkJIHjKJf3CEi7JQGphOlnEfVu UWV7KnN7NMD8fUXrcV0ovCtj eomywM2oAxi+TWFsZTwvdGQ+PH UsXXT6nZbnRAocVKCljZ0dLJOp W3q0GtIcUzN0QLhgK6UjUSBy drmrEj34bS3aCfXyZdA7AYauN6 UiinZ3VOZxhHTtUEqpZRX0G11i k7J0NRKxKZKySYE6pSZ9qY9t bGlnbjogbGVmdDsgdmVydGljYW dkWZmnQ267UUZdgWeaDbugZkLY mt9nOW2dGisxuFS+HI63km45 S1XlTlgyLyz4DZJcWBC7nEU3tI 9dFIEqTScnb5N2uMS6K3XfkhCe io1iy4ezFEKkDWljY37gjEWr q6Z7NRNfbER9GDGkpEugSdBmzL 93Oyc+HYVeyGsjc9XaHopwa3um j1dukMe9NxDuQPMxfsZnwFpl RJZ4q3XsOc79C58oPSxbDPNjCW CrUKWxQVPbrKbeta8gdQ6tTg0+ IXWctBC9sIS3iI8ySjNlKsN7 GQvpW841UkXvxBGxBrxov8ohk5 dqtTi4OvZaXCNeokTvuXzoMDA8 e2EuWv82Q4FnvEudc7HtXtz5 tz30fDGsq8O0hIQ8Q6NcNJXotw tvyTQxvLwyZU9aTXCjwfsuUKEg vL7qFVHdZ9o2TjInPiZ6VLov I1EqsaN1RJLmbCQjBKFkiRNNmX 4xwuxsq8gcjixoQpDgADBgYWf3 ZBg2SFOdhGqgLqQrXSI6YvD0 SOC5sPCtaJ6sgAmxpwhibZ0uRu c+ZJa8h7eftLEaMC5ldAN3OS86 EJ12rGRuf9Z1nII6Y1AnBITs vyrefiquoHA4BZUjJYCzbB26Qd 2fdKzrEm6cUJJrRGD1PFJakGSx D9IndK0pCtWlRQGvRNLgR0Wn xCBrTYwlK253VMieQgJ1OCYgaq QkT1VjCCWvmGyuQhG8w5U3Iw3I ES99XS52ZM62bOZjq0O5eDM6 O5RsCDRchwqramdjpYL3WXOeNH GtsZ72Gv4fwCgjXe1qDSDwKCR5 RWJzkSMpR1CpbR8oRpLoZZDk KMCmY9IjzIKlYHzbI706WDbjFw X8ADWvfzOsS5KuAPGmuCmrMxD1 k5D2By7MDe63BG60QT85sCUs g5S4qNJ4F0LqYKYgkuthgqklqI V2PQGhKOPlwB35Kt2pfCprTd9o QYZcZAY8PIYbbZTgQ2TdbG6p MvInTZOvDOAlG6NrzMGkUMocM2 80AKpuMaD7CZFglhEzD7GbNXHg vLchUhJ3m8D0Ar1RGGfbgmx9 O2FrWffdmER+WE74QZPbAF13rL WuuSZoc3lcnKb3MrQqULIkZOW2 qArrLMgdd2TzGWDgK39ewJRs c2U6 (more content not included)... Normal [facility] Family Medicine Office/Clini c Noteon 11-14-2022 Family Medicine Office/Clinic Note Chief Complaint HTN HPI Staff Pt here for 3 month chronic condition f/u CAD - followed by Cardiology Asthma - followed by Pulmonology HLD - Last Lipid Panel: 12/10/21 Vitamin D deficiency - Vitamin D Level: 12/10/21 Patient is here for follow up on hypertension with CKD How often are you checking your blood pressure? Doesnt check BP at home What are your average readings? N/A, Not checking at home Are you compliant with your diet? no Do you exercise? no Are you compliant with your medications?yes Difficulty affording your medications? no Do you have side effects from the medication? None Do you have any of the following symptoms? Chest Pain? no Palpitations? no JASSO/SOB? yes Headache? no Peripheral Edema? no Light Headiness? no Last labs: 12/10/21 Pt states he is taking Metoprolol, this medication hasn't been filled since 02/12 and is not on medication list. [place]: per pt UTD at [facility] PSA: ? Flu: declines AMW: 04/30/23 History of Present Illness Ricardo Corrigan is a 77-year-old male present today for follow up. He is accompanied by an adult female. He states that he is doing well. He last saw his family day carer in 01/2022 when he had a stress test. He denies any chest pain. He does have shortness of breath with activity. He watches television 7 hours a day and has gained some weight. Ricardo states that he had blood work done at the [facility] in 08/2022. Review of Systems PHQ Score Initial Depression Screen Score: 0 Physical Exam Vitals & Measurements HR: 59(Peripheral) BP: 98/60 SpO2: 97% HT: 68 in HT: 172 cm WT: 95.1 kg WT: 209.22 lb BMI: 32.15 General: alert, no acute distress Extremities: no deformity, no trauma Neurological: oriented x 4, LOC appropriate for age, CN II-XII intact, motor strength equal & normal bilaterally, speech normal Assessment/Plan 1. CAD in [place] artery (I25.10: Atherosclerotic heart disease of [place] coronary artery without angina pectoris) At this time, the patient is continuing on aspirin and statin. Patient needs to follow up with his family day carer. Reviewed last echo which showed grade 1 diastolic dysfunction, but EF was within normal limits with no chest pain today. We will get basic lab work and the patient should follow up with his cardiology in the next few months. 2. Bradycardia, unspecified (R00.1: Bradycardia, unspecified) Most likely secondary to patient's medication. Asymptomatic at this time. Continue medication per cardiology. 3. Mild diastolic dysfunction (I51.9: Heart disease, unspecified) This is grade 1. EF is within normal limits. No other concerns. 4. Chronic kidney disease, stage 3a (N18.31: Chronic kidney disease, stage 3a) Most likely secondary to benign hypertension. We will recheck today. 5. 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 (I12.9: Hypertensive chronic kidney disease with stage 1 through stage 4 chronic kidney disease, or unspecified chronic kidney disease) Patient's blood pressure is at goal. No concerns today. 6. Mixed hyperlipidemia (E78.2: Mixed hyperlipidemia) Continue on the statin. We will check lipids today. 7. Primary hypertension (I10: Essential (primary) hypertension) Patient is at goal as per # 5. 8. Mild persistent asthma without complication (J45.30: Mild persistent asthma, uncomplicated) Patient continues to be short of breath, but this is a multifactorial with weight being one of the factors. Patient is going to be following up with pulmonary. 9. BMI 32.0-32.9,adult (Z68.32: Body mass index [BMI] 32.0-32.9, adult) BMI education given. 10. Non-smoker (Z78.9: Other specified health status) Please continue not to smoke. We will see the patient back in 6 months. Precautions discussed in detail and when to follow up were also discussed. Documentation services were performed after patient or guardian consented to allow [employer] to record this visit. RICKIE rfid specialist and provider reviewed before signing. 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 Medications Aspir 81, 81 mg, Oral, Daily Calcium, Magnesium and Zinc oral tablet, 1 tab(s), Oral, Daily isosorbide mononitrate 30 mg ER Tab, 30 mg= 1 tab(s), Oral, qAM lisinopril 2.5 mg Tab, 2.5 mg= 1 tab(s), Oral, Daily Lopressor 25 mg oral tablet simva (more content not included)... Normal [facility] Comment on above: Result Comment: Elec tronically Signed By: Betina Sampson MD\.br\Date and Time Signed: 11/14/22 11:06 EST\.br\Electronically Co-Signed By: Suzanne Gordon\.br\Date and Time Co-Signed: 11/13/22 10:41 EST Auto Diffon 11-13-2022 Basophils/100 WBC (Bld) 0.7 % Normal 0.0-2.0 [facility] Comment on above: Order Comment: Order Added by Discern Expert. Performed By: #### 1 1135872, 0425962, 3723025, 3256120, 5322284, 34529260 ####[facility] [address] [place] [address] Basophils/Leukocyt es Auto (Bld) [Pure # fraction] 0.0 E9/L Normal 0.0-0.2 [facility] Comment on above: Order Comment: Order Added by Discern Expert. Performed By: #### 1 6114867, 8103322, 0952213, 9165089, 1061361, 58723152 ####[facility] [address] [place] [address] Eosinophils/100 WBC (Bld) 3.2 % Normal 0.0-8.0 [facility] Comment on above: Order Comment: Order Added by Discern Expert. Performed By: #### 1 2496746, 8456928, 9672985, 0232570, 8369268, 63191817 ####[facility] [address] [place] [address] Eosinophils/Leukoc ytes Auto (Bld) [Pure # fraction] 0.2 E9/L Normal 0.0-0.5 [facility] Comment on above: Order Comment: Order Added by Discern Expert. Performed By: #### 1 4628961, 3412029, 5437358, 1420280, 9422184, 56364286 ####[address] [place] [address] Lymphocytes/100 WBC (Bld) 27.3 % Normal 14.0-50.0 [facility] Comment on above: Order Comment: Order Added by Discern Expert. Performed By: #### 1 7702601, 2654810, 9594186, 9482669, 0115588, 49388045 ####[address] [place] [address] Lymphocytes/Leukoc ytes Auto (Bld) [Pure # fraction] 1.8 E9/L Normal 1.0-4.0 [facility] Comment on above: Order Comment: Order Added by Discern Expert. Performed By: #### 1 0886833, 1310907, 7960433, 8511632, 8511058, 33306309 ####[address] [address] Monocytes/100 WBC (Bld) 11.4 % Normal 4.0-14.0 [facility] Comment on above: Order Comment: Order Added by Discern Expert. Performed By: #### 1 1086197, 9897573, 9316481, 1620793, 2750945, 52116242 ####[address] [address] Monocytes/Leukocyt es Auto (Bld) [Pure # fraction] 0.7 E9/L Normal 0.2-1.0 [facility] Comment on above: Order Comment: Order Added by Discern Expert. Performed By: #### 1 9400637, 2757396, 0747003, 1291218, 5740748, 09252633 ####[address] [address] Neutrophils/100 WBC (Bld) 57.4 % Normal 36.0-75.0 [facility] Comment on above: Order Comment: Order Added by Discern Expert. Performed By: #### 1 5963518, 3728161, 6990442, 4893916, 0725186, 27924080 ####[address] [place] [address] Neutrophils/Leukoc ytes Auto (Bld) [Pure # fraction] 3.7 E9/L Normal 2.0-7.5 [facility] Comment on above: Order Comment: Order Added by Discern Expert. Performed By: #### 1 6974456, 8223526, 0419487, 4681371, 7480933, 70474136 ####[address] [address] CBC w/ Auto Diffon 3 Erythrocyte distribution width (RBC) [Ratio] 13.8 % Normal 10.9-14.2 [facility] Comment on above: Performed By: #### 1 9769646, 9179303, 0220606, 3046195, 8825797, 50073548 ####[address] [address] Hematocrit (Bld) [Volume fraction] 50.0 % High 37.7-49.0 [facility] Comment on above: Performed By: #### 1 4197580, 0101453, 9336212, 6937359, 7098428, 69912738 ####[address] [address] Hemoglobin (Bld) [Mass/Vol] 16.0 g/dL Normal 13.5-17.5 [facility] Comment on above: Performed By: #### 1 6146535, 3652821, 9249208, 9656518, 3366628, 39882988 ####[address] [address] MCH (RBC) [Entitic mass] 30.1 pg Normal 27.0-34.0 [facility] Comment on above: Performed By: #### 1 3742671, 3933404, 2483553, 8186914, 3823427, 29752012 ####[address] [address] MCHC (RBC) [Mass/Vol] 31.9 g/dL Normal 31.4-36.0 [facility] Comment on above: Performed By: #### 1 8766526, 1542352, 3211285, 8185019, 1520833, 57148237 ####[address] [place] [address] MCV (RBC) [Entitic vol] 94.3 fL Normal 80.0-100.0 [facility] Comment on above: Performed By: #### 1 6744432, 4759387, 2627067, 0765620, 3479199, 03400396 ####[address] [place] [address] Platelet mean volume (Bld) [Entitic vol] 8.1 fL Normal 6.4-10.8 [facility] Comment on above: Performed By: #### 1 7897483, 9957656, 6926161, 1429813, 0064021, 01060213 ####[address] [address] Platelets (Bld) [#/Vol] 160.0 E9/L Normal 150.0-500.0 [facility] Comment on above: Performed By: #### 1 5882707, 6034124, 4453510, 2170630, 5355977, 97230047 ####[address] RBC (Bld) [#/Vol] 5.3 E12/L Normal 4.3-5.9 [facility] Comment on above: Performed By: #### 1 4601882, 4658654, 0647272, 3859822, 6970751, 80984190 ####[address] [place] [address] WBC corrected for nucl RBC Auto (Bld) [#/Vol] 6.4 E9/L Normal 4.0-11.0 [facility] Comment on above: Performed By: #### 1 7576756, 7913487, 0645189, 0930780, 6171018, 64511957 ####[address] [address] CHEMISTRYOrdered By: SYSTEM SYSTEM on 11-13-2022 Albumin [Mass/Vol] 4.0 g/dL Normal 3.3 - 5.0 gm/dL [facility] Remisol Albumin/Globulin [Mass ratio] 1.3 {ratio} Normal 1.1 - 2.2 [facility] Remisol ALP [Catalytic activity/Vol] 51 [iU]/d Normal 21 - 98 Int._Unit/L [facility] Remisol ALT No additional P-5'-P [Catalytic activity/Vol] 26 [iU]/d Normal 6 - 46 Int._Unit/L [facility] Remisol Anion gap [Moles/Vol] 12 mmol/L Normal 6 - 16 mEq/L [facility] Remisol AST [Catalytic activity/Vol] 25 [iU]/d Normal 5 - 43 Int._Unit/L [facility] Bilirubin [Mass/Vol] 0.8 mg/dL Normal 0.0 - 1.1 mg/dL [facility] Calcium [Mass/Vol] 9.1 mg/dL Normal 8.9 - 11. 1 mg/dL [facility] Chloride [Moles/Vol] 106 mmol/L Normal 101 - 111 mmol/L [facility] Cholesterol [Mass/Vol] 156 mg/dL Normal 120 - 200 mg/dL [facility] Cholesterol in HDL [Mass/Vol] 38 mg/dL Invalid Interpretation Code [facility] Cholesterol in LDL [Mass/Vol] 94 mg/dL Normal <=129mg/dL [facility] Cholesterol in VLDL [Mass/Vol] 31 mg/dL Normal 7 - 40 mg/dL [facility] CO2 [Moles/Vol] 27 mmol/L Normal 21 - 31 mmol/L [facility] Creatinine [Mass/Vol] 1.2 mg/dL Normal 0.5 - 1.3 mg/dL [facility] Remisol GFR/1.73 sq M.predicted among blacks MDRD (S/P/Bld) [Vol rate/Area] mL/min/1.73 m2 Normal >=59mL/min/1.73 m2 FT Chem S GFR/1.73 sq M.predicted among non-blacks MDRD (S/P/Bld) [Vol rate/Area] 59 mL/min/1.73 m2 Normal >=59mL/min/1.73 m2 [facility] [place] Chem S Globulin (S) [Mass/Vol] 3.0 g/dL Normal 1.4 - 4.0 gm/dL [facility] Remisol Glucose [Mass/Vol] 108 mg/dL Normal 55 - 199 mg/dL [facility] Potassium [Moles/Vol] 4.5 mmol/L Normal 3.5 - 5.3 mmol/L [facility] Protein [Mass/Vol] 7.0 g/dL Normal 6.0 - 7.8 gm/dL [facility] [place] Sodium [Moles/Vol] 140 mmol/L Normal 135 - 145 mmol/L [facility] Triglyceride [Mass/Vol] 157 mg/dL High <=149mg/dL [facility] TSH Qn 2.22 m[IU]/L Normal 0.34 - 5.60 mcIU/mL [facility] Urea nitrogen [Mass/Vol] 27 mg/dL High 5 - 21 mg/dL [facility] Urea nitrogen/Creatinin e [Mass ratio] 22 mg/mg High 10 - 20 [facility] CMPon 11-13-2022 Albumin [Mass/Vol] 4.0 g/dL Normal 3.3-5.0 [facility] Comment on above: Performed By: #### 1 9825030, 5781903, 1524975, 4024012, 7959963, 67682656 ####[facility] [address] [place] [address] Albumin/Globulin (S) [Mass conc ratio] 1.3 Normal 1.1-2.2 [facility] Comment on above: Performed By: #### 1 9920361, 1674565, 0930089, 5735080, 7566012, 34417758 ####[facility] [address] [place] [address] ALP [Catalytic activity/Vol] 51 Int._Unit/L Normal 21-98 [facility] Comment on above: Performed By: #### 1 0429308, 8951999, 6284508, 9892317, 0062735, 40787447 ####[facility] [address] [place] [address] ALT No additional P-5'-P [Catalytic activity/Vol] 26 Int._Unit/L Normal 6-46 [facility] Comment on above: Performed By: #### 1 9371871, 8906435, 9855305, 2913149, 9955952, 82235211 ####[facility] [address] [place] [address] Anion gap [Moles/Vol] 12 mmol/L Normal 6-16 [facility] Comment on above: Performed By: #### 1 8750472, 3779676, 6507983, 3251709, 9379149, 61392597 ####[facility] [address] [place] [address] AST [Catalytic activity/Vol] 25 Int._Unit/L Normal 5-43 [facility] Comment on above: Performed By: #### 1 1466090, 4855991, 8759319, 8039209, 1396097, 52553160 ####[facility] [address] [place] [address] Bilirubin [Mass/Vol] 0.8 mg/dL Normal 0.0-1.1 [facility] Comment on above: Performed By: #### 1 6266859, 4339214, 0182714, 2735892, 7830892, 27315099 ####[facility] [address] [place] [address] Calcium [Mass/Vol] 9.1 mg/dL Normal 8.9-11.1 [facility] Comment on above: Performed By: #### 1 7088536, 4826337, 7727385, 1607275, 6538804, 96476932 ####[facility] [address] [place] [address] Chloride [Moles/Vol] 106 mmol/L Normal 101-111 [facility] Comment on above: Performed By: #### 1 3834645, 4187342, 9055876, 9471696, 0355420, 88707357 ####[facility] [address] [place] [address] CO2 [Moles/Vol] 27 mmol/L Normal 21-31 [facility] Comment on above: Performed By: #### 1 6989182, 8128355, 7475244, 5755695, 3680218, 61017265 ####[facility] [address] [place] [address] Creatinine [Mass/Vol] 1.2 mg/dL Normal 0.5-1.3 [facility] Comment on above: Performed By: #### 1 5745839, 1927680, 6912713, 4641963, 4910506, 47774828 ####[facility] [address] [place] [address] Globulin (S) [Mass/Vol] 3.0 g/dL Normal 1.4-4.0 [facility] Comment on above: Performed By: #### 1 6394722, 8208606, 2414115, 8549086, 4738071, 85881582 ####[facility] [address] [place] [address] Glucose [Mass/Vol] 108 mg/dL Normal 55-199 [facility] Comment on above: Result Comment: If t his glucose result represents a fasting glucose, interpretation should refer to the following reference range: 55-99 mg/dL Performed By: #### 1 3784806, 4487566, 5758732, 2172336, 5615980, 49983229 ####[facility] [address] [place] [address] Potassium [Moles/Vol] 4.5 mmol/L Normal 3.5-5.3 [facility] Comment on above: Performed By: #### 1 6945940, 7955400, 3449918, 1985146, 5029369, 54366869 ####[facility] [address] [place] [address] Protein [Mass/Vol] 7.0 g/dL Normal 6.0-7.8 [facility] Comment on above: Performed By: #### 1 4608034, 7051100, 6688875, 3096694, 6820083, 83519847 ####[facility] [address] [place] [address] Sodium [Moles/Vol] 140 mmol/L Normal 135-145 [facility] Comment on above: Performed By: #### 1 4531448, 1756564, 9318907, 4410152, 5590004, 11198451 ####[facility] [address] [place] [address] Urea nitrogen [Mass/Vol] 27 mg/dL High 5-21 [facility] Comment on above: Performed By: #### 1 0887297, 5087212, 8252204, 6993636, 0886577, 80300232 ####[facility] [address] [place] [address] Urea nitrogen/Creatinin e [Mass ratio] 22 No Units High 10-20 [facility] Comment on above: Performed By: #### 1 6852005, 6042522, 0165115, 4491556, 7524694, 56314775 ####[facility] [address] [place] [address] HEMATOLOGYOrdered By: SYSTEM SYSTEM on 11-13-2022 Basophils/100 WBC (Bld) 0.7 % Normal 0.0 - 2.0 % [facility] HemeAutoSS Basophils/Leukocyt es Auto (Bld) [Pure # fraction] 0.0 E9/L Normal 0.0 - 0.2 E9/L [facility] HemeAutoSS Eosinophils/100 WBC (Bld) 3.2 % Normal 0.0 - 8.0 % [facility] HemeAutoSS Eosinophils/Leukoc ytes Auto (Bld) [Pure # fraction] 0.2 E9/L Normal 0.0 - 0.5 E9/L [facility] HemeAutoSS Lymphocytes/100 WBC (Bld) 27.3 % Normal 14.0 - 50.0 % [facility] HemeAutoSS Lymphocytes/Leukoc ytes Auto (Bld) [Pure # fraction] 1.8 E9/L Normal 1.0 - 4.0 E9/L [facility] HemeAutoSS Monocytes/100 WBC (Bld) 11.4 % Normal 4.0 - 14.0 % [facility] HemeAutoSS Monocytes/Leukocyt es Auto (Bld) [Pure # fraction] 0.7 E9/L Normal 0.2 - 1.0 E9/L [facility] HemeAutoSS Neutrophils/100 WBC (Bld) 57.4 % Normal 36.0 - 75.0 % [facility] HemeAutoSS Neutrophils/Leukoc ytes Auto (Bld) [Pure # fraction] 3.7 E9/L Normal 2.0 - 7.5 E9/L [facility] HemeAutoSS HEMATOLOGYOrdered By: Jamari Roque on 11-13-2022 Erythrocyte distribution width (RBC) [Ratio] 13.8 % Normal 10.9 - 14.2 % [facility] HemeAutoSS Hematocrit (Bld) [Volume fraction] 50.0 % High 37.7 - 49.0 % [facility] HemeAutoSS Hemoglobin (Bld) [Mass/Vol] 16.0 g/dL Normal 13.5 - 17.5 gm/dL [facility] HemeAutoSS MCH (RBC) [Entitic mass] 30.1 pg Normal 27.0 - 34.0 pg [facility] HemeAutoSS MCHC (RBC) [Mass/Vol] 31.9 g/dL Normal 31.4 - 36.0 gm/dL [facility] HemeAutoSS MCV (RBC) [Entitic vol] 94.3 fL Normal 80.0 - 100.0 fL [facility] HemeAutoSS Platelet mean volume (Bld) [Entitic vol] 8.1 fL Normal 6.4 - 10.8 fL [facility] HemeAutoSS Platelets (Bld) [#/Vol] 160.0 E9/L Normal 150.0 - 500.0 E9/L [facility] HemeAutoSS RBC (Bld) [#/Vol] 5.3 E12/L Normal 4.3 - 5.9 E12/L [facility] HemeAutoSS WBC corrected for nucl RBC Auto (Bld) [#/Vol] 6.4 E9/L Normal 4.0 - 11.0 E9/L [facility] HemeAutoSS Lipid Panelon 11-13-2022 Cholesterol [Mass/Vol] 156 mg/dL Normal 120-200 [facility] Comment on above: Performed By: #### 1 1867004, 3128344, 9280511, 8694604, 1647447, 25882008 ####[facility] [address] [place] [address] Cholesterol in HDL [Mass/Vol] 38 mg/dL Invalid Interpretation Code [facility] Comment on above: Result Comment: HDL > or equal to 60 mg/dL: Low cardiovascular risk HDL < 40 mg/dL : High cardiovascular risk Performed By: #### 1 2978640, 6333092, 8282367, 3373497, 1254719, 46160147 ####[facility] [address] [place] [address] Cholesterol in LDL [Mass/Vol] 94 mg/dL Normal <=129 [facility] Comment on above: Performed By: #### 1 1052301, 2481949, 3326689, 7588588, 1354803, 37253061 ####[facility] [address] [place] [address] Cholesterol in VLDL [Mass/Vol] 31 mg/dL Normal 7-40 [facility] Comment on above: Performed By: #### 1 9645583, 5145319, 2652372, 0402254, 7131424, 90449142 ####[facility] [address] [place] [address] Triglyceride [Mass/Vol] 157 mg/dL High <=149 [facility] Comment on above: Performed By: #### 1 1307509, 3575041, 6641187, 3742787, 3492467, 22119965 ####[facility] [address] [place] [address] Patient Educationon 11-13-19 23 Patient Education Nutrition BMI for Adults Body mass index (BMI) is a number that is calculated from a person's weight and height. BMI may help to estimate how much of a person's weight is composed of fat. BMI can help identify those who may be at higher risk for certain medical problems. How is BMI used with adults? BMI is used as a screening tool to identify possible weight problems. It is used to check whether a person is obese, overweight, healthy weight, or underweight. How is BMI calculated? BMI measures your weight and compares it to your height. This can be done either in [place] ([place] or metric measurements. Note that charts are available to help you find your BMI quickly and easily without having to do these calculations yourself. To calculate your BMI in [place] ([place] measurements, your health care provider will: 1. Measure your weight in pounds (lb). 2. Multiply the number of pounds by 703. ? For example, for a person who weighs 180 lb, multiply that number by 703, which equals 126,540. 3. Measure your height in inches (in). Then multiply that number by itself to get a measurement called inches squared. ? For example, for a person who is 70 in tall, the inches squared measurement is 70 in x 70 in, which equals 4900 inches squared. 4. Divide the total from Step 2 (number of lb x 703) by the total from Step 3 (inches squared): 126,540 ? 4900 = 25.8. This is your BMI. To calculate your BMI in metric measurements, your health care provider will: 1. Measure your weight in kilograms (kg). 2. Measure your height in meters (m). Then multiply that number by itself to get a measurement called meters squared. ? For example, for a person who is 1.75 m tall, the meters squared measurement is 1.75 m x 1.75 m, which is equal to 3.1 meters squared. 3. Divide the number of kilograms (your weight) by the meters squared number. In this example: 70 ? 3.1 = 22.6. This is your BMI. How is BMI interpreted? To interpret your results, your health care provider will use BMI charts to identify whether you are underweight, normal weight, overweight, or obese. The following guidelines will be used: ? Underweight: BMI less than 18.5. ? Normal weight: BMI between 18.5 and 24.9. ? Overweight: BMI between 25 and 29.9. ? Obese: BMI of 30 and above. Please note: ? Weight includes both fat and muscle, so someone with a muscular build, such as an athlete, may have a BMI that is higher than 24.9. In cases like these, BMI is not an accurate measure of body fat. ? To determine if excess body fat is the cause of a BMI of 25 or higher, further assessments may need to be done by a health care provider. ? BMI is usually interpreted in the same way for men and women. Why is BMI a useful tool? BMI is useful in two ways: ? Identifying a weight problem that may be related to a medical condition, or that may increase the risk for medical problems. ? Promoting lifestyle and diet changes in order to reach a healthy weight. Summary ? Body mass index (BMI) is a number that is calculated from a person's weight and height. ? BMI may help to estimate how much of a person's weight is composed of fat. BMI can help identify those who may be at higher risk for certain medical problems. ? BMI can be measured using Finnish measurements or metric measurements. ? To interpret your results, your health care provider will use BMI charts to identify whether you are underweight, normal weight, overweight, or obese. This information is not intended to replace advice given to you by your health care provider. Make sure you discuss any questions you have with your health care provider. Document Released: 05/22/2005 Document Revised: 08/23/2018 Document Reviewed: 07/24/2018 [employer] Patient Education ? 2019 [employer] Normal [facility] TSH With T4fr Reflexon 11-13 TSH Qn 2.22 m[IU]/L Normal 0.34-5.60 [facility] Comment on above: Performed By: #### 1 3968582, 6734520, 9250743, 1970784, 9654904, 00869928 ####[facility] [address] [place] [address] eGFRon 11-13-2022 GFR/1.73 sq M.predicted among blacks MDRD (S/P/Bld) [Vol rate/Area] mL/min/{1.73_m2} Normal >=59 [facility] Comment on above: Order Comment: Order added by Discern Expert. Result Comment: eGFR is race adjusted. AA=. Performed By: #### 1 6298766, 9123641, 2363732, 4682859, 8244895, 17249174 ####[facility] [address] [place] [address] GFR/1.73 sq M.predicted among non-blacks MDRD (S/P/Bld) [Vol rate/Area] 59 mL/min/1.73 m2 Normal >=59 [facility] Comment on above: Order Comment: Order added by Discern Expert. Result Comment: Manager Learning aaliyah kidney disease could be indicated at eGFR's of less than 60 mL/min/1.73m2. Kidney failure is indicated at less than 15 mL/min/1.73m2. Performed By: #### 1 8995238, 2854160, 3432706, 3801058, 5780719, 72091707 ####[facility] [address] [place] [address] ECHOCARDIO M/2D COMPLETEon 1 09-25-2021 ECHOCARDIO M/2D COMPLETE Patient: RICARDO CORRIGAN Exam Date: 07/26/2022 : 1945 Gender:M Ordering : DR ANTONIO IGNACIO M.D. Admission #: [id number] Family : DR. BETINA SAMPSON . Order #: [id number] CLICK HERE TO VIEW EXAM ECHOCARDIOGRAM REPORT PROCEDURE: CARDIO PULMONARY ECHOCARDIO M/2D COMP INDICATIONS: Dyspnea on exertion, PTCA, hypertension COMPARISON: None. DESCRIPTION: COMPLETE ECHOCARDIOGRAM Real-time transthoracic echocardiography with 2D, M-mode, spectral and color flow Doppler performed. QUALITY: Technical quality was good. 66 200# BP 146/84 LEFT VENTRICLE: Normal chamber size. Mild concentric left ventricular hypertrophy. LV EF: Lower limits of normal left ventricular ejection fraction, (50-55%). DIASTOLIC: Grade I diastolic dysfunction. ATRIAL SEPTUM: Visually appears intact. LEFT ATRIUM: Mild dilatation. RIGHT ATRIUM: Normal chamber size. RIGHT VENTRICLE: Normal chamber size. Preserved right ventricular systolic function. TRICUSPID VALVE: Normal mobility and thickness. No stenosis with no regurgitation. MITRAL VALVE: Mildly thickened with normal mobility. No evidence of mitral valve stenosis. No mitral regurgitation. AORTIC VALVE: Normal trileaflet appearance. Mildly calcified aortic valve. Normal leaflet mobility. Doppler velocity suggest no aortic valve stenosis. Peak velocity 1.87 m/s. No aortic regurgitation. AORTIC ROOT: Normal diameter and appearance. Ascending aorta is normal in size. PULMONIC VALVE: Normal thickness and mobility. No stenosis. No regurgitation. PERICARDIUM: No evidence of pericardial effusion. IVC: Collapses with inspirations. IVC is normal in size. PLEURA: CONCLUSION: 1. Mild concentric left ventricular hypertrophy. Left ventricular systolic function is at the lower limits of normal. LVEF is 50 to 55%. 2. Normal right ventricular size preserved systolic function. 3. Mildly calcified aortic valve with no significant stenosis. 4. No significant valvular dysfunction. Adult Echocardiography Procedure Report Left Ventricle LVEDD (3.7 - 5.6 cm): 3.97 cm, 4.80 cm LVESD (2.2 - 4.0 cm): 3.13 cm, 3.12 cm LVIVS thickness (0.6 - 1.2 cm): 1.16 cm LVPW thickness (0.5 - 1.0 cm): 1.07 cm e': 0.06 m/s E - e': 10.01 LVOT Max Gradient: 3.12 mm[Hg] Peak Velocity (LVOT): 0.88 m/s Mean Velocity (LVOT): 0.59 m/s LVOT Diameter 2.41 cm Left Ventricular Ejection Fraction: 50-55 % Left Atrium LA Volume Index (2D A2C): 69.93 ml, 69.93 ml Left Atrium Systolic Dimension: 3.57 cm Mitral Valve MV E to A Ratio: 0.77 Mitral Valve A-Wave Peak Velocity: 0.83 m/s Mitral Valve E-Wave Peak Velocity: 0.64 m/s Right Ventricle Aorta AO Root Diam: 3.35 cm Aortic Valve AoV Area (Peak Ujles): 2.71 cm2, 3.67 cm2 AoV Area (VTI): 3.49 cm2, 4.43 cm2 Peak Velocity(Antegrade Flow): 1.10 m/s, 1.87 m/s Peak Gradient(Antegrade Flow): 4.84 mm[Hg], 14.03 mm[Hg] Mean Velocity(Antegrade Flow): 0.70 m/s, 1.13 m/s Mean Gradient(Antegrade Flow): 2.30 mm[Hg], 6.54 mm[Hg] Velocity Time Integral: 24.21 cm, 37.14 cm Tricuspid Valve Peak Velocity: 0.32 m/s Pulmonic Valve Peak Velocity: 0.69 m/s, 0.88 m/s Peak Gradient: 1.90 mm[Hg], 3.11 mm[Hg] Right Atrium Right Atrium Systolic Pressure: 37.38 ml, 37.38 ml Dictated by: Antonio Ignacio M.D. on 07/26/2022 at 11:59 Approved by: Antonio Ignacio M.D. on 07/26/2022 at 12:05 [facility] AUTO DIFFon 04-27-2022 BASO # 0.1 103/ul Normal 0.0-0.1 [facility] Comment on above: Performed By: #### C BC #### [facility] [address] [address] [address] Kimber Rascon Basophils/100 WBC (Bld) 0.7 % Normal 0.2-2.0 [facility] Comment on above: Performed By: #### C BC #### [facility] [address] [place] [address] Dr. Kimber Rascon EO # 0.2 103/ul Normal 0.0-0.7 [facility] Comment on above: Performed By: #### C BC #### [facility] [address] [place] [address] Dr. Kimber Rascon Eosinophils/100 WBC (Bld) 2.8 % Normal 0.9-7.0 [facility] Comment on above: Performed By: #### C BC #### [facility] [address] [place] [address] Dr. Kimber Rascon Erythrocyte distribution width (RBC) [Ratio] 12.6 % Normal 11.0-15.0 [facility] Comment on above: Performed By: #### C BC #### [facility] [address] [place] [address] Dr. Kimber Rascon Hematocrit (Bld) [Volume fraction] 47.1 % Normal 42.0-54.0 [facility] Comment on above: Performed By: #### C BC #### [facility] [address] [place] [address] Dr. Kimber Rascon Hemoglobin (Bld) [Mass/Vol] 15.9 g/dL Normal 14.0-18.0 [facility] Comment on above: Performed By: #### C BC #### [facility] [address] [place] [address] Dr. Kimber Rascon IG # 0.04 10e3/ul Critically high 0.00-0.03 [facility] Comment on above: Performed By: #### C BC #### [facility] [address] [place] [address] Dr. Kimber Rascon IG % 0.6 % Critically high 0.0-0.5 [facility] Comment on above: Performed By: #### C BC #### [facility] [address] [place] [address] Dr. Kimber Rascon LYMPH # 2.3 103/ul Normal 1.2-3.8 [facility] Comment on above: Performed By: #### C BC #### [facility] [address] [place] [address] Dr. Kimber Rascon Lymphocytes/100 WBC (Bld) 34.4 % Normal 20.5-60.0 [facility] Comment on above: Performed By: #### C BC #### [facility] [address] [place] [address] Dr. Kimber Rascon MANUAL DIFF REQ NO Normal [facility] Comment on above: Performed By: #### C BC #### [facility] [address] [place] [address] Dr. Kimber Rascon MCH (RBC) [Entitic mass] 30.8 pg Normal 25.9-34.0 [facility] Comment on above: Performed By: #### C BC #### [facility] [address] [place] [address] Dr. Kimber Rascon MCHC (RBC) [Mass/Vol] 33.8 g/dL Normal 29.9-35.2 [facility] Comment on above: Performed By: #### C BC #### [facility] [address] [place] [address] Dr. Kimber Rascon MCV (RBC) [Entitic vol] 91.3 fL Normal 80.0-94.0 [facility] Comment on above: Performed By: #### C BC #### [facility] [address] [place] [address] Dr. Kimber Rascon MONO # 0.6 103/ul Normal 0.3-0.8 [facility] Comment on above: Performed By: #### C BC #### [facility] [address] [place] [address] Dr. Kimber Rascon Monocytes/100 WBC (Bld) 9.4 % Normal 1.7-12.0 [facility] Comment on above: Performed By: #### C BC #### [facility] [address] [place] [address] Dr. Kibmer Rascon NEUT # 3.6 103/ul Normal 1.4-6.5 [facility] Comment on above: Performed By: #### C BC #### [facility] [address] [place] [address] Dr. Kimber Rascon Neutrophils/100 WBC (Bld) 52.1 % Normal 43.0-75.0 [facility] Comment on above: Performed By: #### C BC #### [facility] [address] [place] [address] Dr. Kimber Rascon Platelet mean volume (Bld) [Entitic vol] 9.2 fL Critically low 9.5-13.5 [facility] Comment on above: Performed By: #### C BC #### [facility] [address] [place] [address] Dr. Kimber Rascon PLT 161 103/ul Normal 150-450 [facility] Comment on above: Performed By: #### C BC #### [facility] [address] [place] [address] Dr. Kimber Rascon RBC 5.16 106/ul Normal 4.70-6.10 [facility] Comment on above: Performed By: #### C BC #### [facility] [address] [place] [address] Dr. Kimber Rascon WBC 6.8 103/ul Normal 4.0-11.0 [facility] Comment on above: Performed By: #### C BC #### [facility] [address] [place] [address] Dr. Kimber Rascon LIPID PROFILEon 04-27-2022 CHOL-HDL RATIO NORM SEE BELOW Normal [facility] Comment on above: Result Comment: 3.3 - 4.4 LOW RISK 4.4 - 7.1 AVERAGE RISK 7.1 - 11.0 MODERATE RISK >11.0 HIGH RISK Performed By: #### L IPID #### [facility] [address] [address] [address] Kimber Rascon Cholesterol [Mass/Vol] 144 mg/dL Normal <=200 [facility] Comment on above: Performed By: #### L IPID #### [facility] [address] [address] [address] Kimber Rascon Cholesterol in HDL [Mass/Vol] 35 mg/dL Critically low 40-60 [facility] Comment on above: Performed By: #### L IPID #### [facility] [address] [address] [address] Kimber Rascon Cholesterol in LDL [Mass/Vol] 68.0 mg/dL Normal [facility] Comment on above: Performed By: #### L IPID #### [facility] [address] [address] [address] Kimber Rascon Cholesterol.total/ Cholesterol in HDL [Mass ratio] 4.1 {ratio} Normal [facility] Comment on above: Performed By: #### L IPID #### [facility] [address] [address] [address] Kimber Rascon HDL NORMAL > or = 60 mg/dl - LO W CARDIOVASCULAR RISK <40 mg/dl - HIGH CARDIOVASCULAR RISK Normal [facility] Comment on above: Performed By: #### L IPID #### [facility] [address] [place] [address] Dr. Kimber Rascon LDL CALC NORMAL SEE BELOW Normal [facility] Comment on above: Result Comment: <100 mg/dl OPTIMAL 100 - 129 mg/dl NEAR OR ABOVE OPTIMAL 130 - 159 mg/dl BORDERLINE HIGH 160 - 189 mg/dl HIGH >190 mg/dl VERY HIGH Performed By: #### L IPID #### [facility] [address] [address] [address] Kimber Rascon Triglyceride [Mass/Vol] 205 mg/dL Critically high <=150 [facility] Comment on above: Performed By: #### L IPID #### [facility] [address] [address] [address] Kimber Rascon VLDL CALC 41.0 mg/dL Normal [facility] Comment on above: Performed By: #### L IPID #### [facility] [address] [place], [place] [address] Dr. Kimber Rascon Cardiovascular Lab Reporton 01-16-2018 Cardiovascular Lab Report [facility] Patient Name: Ricardo Corrigan [facility] MR #: [id number] Physician: Antonio Lopez M.D.Medicine Service Date: 01/16/2018Division of Birthdate: 4Cardiology Room #: CCAdult [facility]Services[facility] [place], [place] [address]Weptl Fax Cardiovascular Laboratory ReportINDICATION: Ricardo Corrigan is a 72-year-old man, who recently was evaluatedin Cardiology Clinic because of symptoms of unstable angina and a stresstest that showed inferolateral ischemia. He underwent cardiaccatheterization on December 14, 2017, this showed a 70% stenosis in the midLAD right at the bifurcation of the first diagonal branch as well ashigh-grade stenosis in the circumflex obtuse marginal branch. He underwentpercutaneous intervention to the circumflex obtuse marginal branch with adrug-eluting stent. He was brought today for staged FFR assessment of theLAD and possible intervention.PROCEDURE:1. Fractional flow reserve measurement of the left anterior descending coronary artery.2. Administration of intracoronary nitroglycerin.METHOD: Procedure was explained to the patient with risks and benefits.He signed informed consent. He was brought to director of cath lab in a fasting state.The left wrist area was prepped and draped in usual fashion. Adriel's testwas favorable. Access in the left radial artery was obtained usingmodified Seldinger technique. A 6-Syriac x 11 cm Hydrophilic sheath wasadvanced. Verapamil was given through the sheath and heparin wasadministered intravenously. A 6-Syriac XB 3.5 guiding catheter wasadvanced over a Tello wire and used to engage left main coronary ostium.Initial setup angiography was performed. A [employer] FFR wire was advancedand equalization of pressure was made outside of the guiding catheter. Thewire was advanced into the distal LAD. Intracoronary nitroglycerin 150 mcgwas administered followed by measurement of IFR, which was 0.93. Afterthat, intravenous adenosine 140 mcg/kg per minute was administeredintravenously over 3 minutes. FFR assessment of the LAD was 0.85indicating a non-hemodynamically significant stenosis in the LAD. The wirewas retracted. Final angiography was performed. Catheter was removed.The access sheath was removed and a compression dressing applied forhemostasis. He tolerated procedure well. He was transferred tocardiovascular recovery area. He will be observed for 3 hours and thendischarged to home.TOTAL FLUORO TIME: 2.20 minutes.TOTAL AIR KERMA: 186 mGy.TOTAL CONTRAST VOLUME: 30 mL.HEMODYNAMICS: AO 133/75, mean 96.CORONARY ANGIOGRAPHY: Left main. This arises from left coronary cusp. Itbifurcates into left anterior descending and circumflex vessels. The leftmain is free of disease.Left anterior descending. This has a 70% stenosis right after the takeoffof a first diagonal branch. The FFR assessment of the LAD at that locationwas 0.85 indicating a non-hemodynamically significant stenosis in the LAD.The rest of the LAD is diffusely tapered, but free of significant stenosis.There is a moderate disease in the apical LAD.Circumflex vessel: This is nondominant. It gives rise to a very largeobtuse marginal branch, which itself is bifurcating. There is a previouslyplaced stent in that obtuse marginal branch. The stent is widely patent.The site of balloon angioplasty at the ostium of the inferior branch ofthat obtuse marginal branch is widely patent.RECOMMENDATIONS:1. Given negative FFR value in the LAD it is recommended to manage this lesion medically at this time.2. Follow up in Cardiology Clinic.Electronically Signed by:Antonio Ignacio M.D. 01/18/2018 04:01 P Antonio Ignacio M.D.Date Dict: 01/16/2018/09:03 A/Antonio Ignacio M.D.Date Trans: 01/16/2018 09:35 A/Francy_[id number] c: Maxwell Swan D.O. [address] [place] [id number] Normal [facility] Cardiovascular Lab Reporton 12-15-2017 Cardiovascular Lab Report [facility] Patient Name: Ricardo Corrigan [facility] MR #: [id number] Physician: Antonio Lopez M.D.Medicine Service Date: 12/14/2017Division of Birthdate: 4Cardiology Room #: 3CD [id number] CardiovascularServicesUn[facility] [address] [place], [place] [address]Dgsfa Fax Cardiovascular Laboratory ReportINDICATION: Ricardo Corrigan is a 72-year-old man who was evaluated recently inCardiology Clinic because of recent onset symptoms of upper back pain andshortness of breath on minimal exertion. His stress test showedinferolateral ischemia. He was referred for cardiac catheterization.PROCEDURE: 1. Bilateral selective coronary angiography from the left radial access.2. Successful balloon dilatation and drug-eluting stenting of an 80% complex stenosis in the second obtuse marginal branch at the site of bifurcation into a superior and an inferior branch with reduction of the stenosis to 0% by placement of a Synergy 2.75 x 16 mm drug-eluting stent post dilated to 3.0 mm at high pressures.3. Successful balloon dilatation and reduction of stenosis from 80% to 0% in the ostium of the inferior branch of the second obtuse marginal branch of the circumflex vessel.4. Administration of intracoronary nitroglycerin.METHODS: Procedure was explained to the patient with risks and benefits.He signed informed consent. He was brought to director of cath lab in a fasting state.The left wrist area was prepped and draped in the usual fashion. Adriel'stest was favorable on the left. Access was obtained in the left radialartery using micropuncture technique. A 6-Syriac x 11 cm Hydrophilicsheath was advanced. Verapamil was given through the sheath and heparinwas administered intravenously. Bilateral selective coronary angiographywas then performed using 6-Syriac JL4 and JR4 diagnostic catheters.Initial catheter advancement over the radial to brachial area wasfacilitated using an angled Glidewire, catheters were removed.Therapeutic ACT was confirmed during the rest of the procedure. A 6-FrenchXB3.5 guiding catheter was advanced and used to engage the left maincoronary ostium. A BMW wire was advanced into the second obtuse marginalbranch and then into its superior branch. Balloon dilatation was performedusing Emerge 2.5 x 12 mm balloon inflated at 12 atmospheres. Angiographyrevealed suboptimal result. This was treated using deployment of a Synergy2.75 x 16 mm drug-eluting stent deployed at 11 atmospheres across the areaof stenosis jailing the inferior branch of the second obtuse marginalbranch. This was post dilated using NC Quantum [place] 3.0 x 12 mm ballooninflated at 16 atmospheres. Angiography after administration ofintracoronary nitroglycerin showed excellent result with reduction of thestenosis in the obtuse marginal branch and its superior branch to 0% withno evidence of dissection or perforation. The inferior branch which wasjailed by the stent had an 80% ostial stenosis. The wire was thenretracted from the superior branch and directed into the inferior branch.An Emerge 2.5 x 8 mm balloon was inflated across the ostium to open thestent struts at 12 atmospheres. This was performed with repeatedinflations. Intracoronary nitroglycerin was administered. The wire wasretracted and then advanced into the superior branch. The NC Quantum Apex3.0 x 12 mm noncompliant balloon was inflated again across the length ofthe stent at 16 atmospheres to ensure adequate apposition of the stent.The balloon was retracted. The wire was retracted. Intracoronarynitroglycerin was administered. Final angiography was performed showingreduction of all stenosis to 0%. No evidence of dissection or perforation.The procedure was concluded. The guiding catheter was removed, and thepatient was loaded with 600 mg of Plavix at the end of the procedure. Theaccess sheath and radial artery were removed and a compression dressingapplied for hemostasis. He will be admitted for overnight observation.TOTAL FLUORO TIME: 10.36 minutes.TOTAL AIR KERMA: 1145 mGy.TOTAL CONTRAST VOLUME: 140 mL.HEMODYNAMICS: AO 116/62, mean 84.CORONARY ANGIOGRAPHY: This is a right dominant circulation.Left main: This arises from left coronary cusp. It bifurcates into leftanterior descending and circumflex vessels. The left main is free ofdisease.Left anterior descending: This has 70% stenosis in its mid segment rightafter the takeoff of a moderate-sized first diagonal branch. The rest ofthe LAD is free of disease.Circumflex vessel: This is nondominant and gives rise to a small firstobtuse marginal branch and a very large 2nd obtuse marginal branch whichitself bifurcates into a superior and an inferior branch. The obtusemarginal branch right at the site of its bifurcation had an 80% complexhazy stenosis that was reduced to 0% by balloon angioplasty anddrug-eluting stenting into the superior branch followed by balloondilatation of the ostium of the jailed inferior branch and reduction of itsstenosis to 0% at the end of the procedure. The distal circumflexfollowing that in the AV groove is free of disease.Right coronary artery: This arises from the right coronary cusp. It is alarge and dominant vessel. It has mild disease in its mid segment but noobstructive lesions.SUMMARY OF THE FINDINGS:1. Severe 2-vessel coronary artery disease.2. 70% stenosis in the mid LAD right after the first diagonal branch.3. 80% complex hazy stenosis in the second obtuse marginal branch with involvement of its bifurcation into a superior and an inferior branch successfully reduced to 0% by balloon angioplasty and drug-eluting stenting as noted above.4. Mild disease in the right coronary artery.RECOMMENDATIONS:1. Aspirin and statin therapy for life. The patient's simvastatin will be increased to 40 mg daily.2. Plavix therapy for minimum of 1 year after drug-eluting stenting and unstable angina presentation.3. The patient will come back for staged FFR assessment of the LAD stenosis with possible stenting at a later date.4. Follow up in Cardiology Clinic.Electronically Signed by:Antonio Ignacio M.D. 12/29/2017 03:36 A Antonio Ignacio M.D.Date Dict: 12/14/2017/07:59 P/Antonio Ignacio M.D.Date Trans: 12/15/2017 03:48 A/[id number] Normal [facility] Vital Signs Date Time Vital Sign Value Performing Clinician Rohit dang 11-13-2022 08:46-0500 Blood Pressure Location Betina Sampson [facility] 11-13-2022 08:46-0500 Diastolic blood pressure 60 mm[Hg] Betina Sampson [facility] 11-13-2022 08:46-0500 Heart rate 59 /min Betina Sampson [facility] 11-13-2022 08:46-0500 SaO2% (BldA) [Mass fraction] 97 % Betina Sampson [facility] 11-13-2022 08:46-0500 Systolic blood pressure 98 mm[Hg] Betina Sampson [facility] 08-14-2022 11:22-0500 Blood Pressure Location Betina Sampson [facility] 08-14-2022 11:22-0500 Diastolic blood pressure 78 mm[Hg] Betina Sampson [facility] 08-14-2022 11:22-0500 Heart rate 57 /min Betina Sampson [facility] 08-14-2022 11:22-0500 SaO2% (BldA) [Mass fraction] 98 % Betina Sampson [facility] 08-14-2022 11:22-0500 Systolic blood pressure 112 mm[Hg] Betina Sampson [facility] 04-20-2022 08:21-0400 Blood Pressure Location Betina Sampson [facility] 04-20-2022 08:21-0400 Diastolic blood pressure 62 mm[Hg] Betina Sampson [facility] 04-20-2022 08:21-0400 Heart rate 53 /min Betina Sampson [facility] 04-20-2022 08:21-0400 SaO2% (BldA) [Mass fraction] 96 % Betinachandrakant Sampson [facility] 04-20-2022 08:21-0400 Systolic blood pressure 100 mm[Hg] Betina Sampson [facility] 04-20-2022 08:19-0400 Blood Pressure Location Betinachandrakant Sampson [facility] 04-20-2022 08:19-0400 Diastolic blood pressure 62 mm[Hg] Betina Sampson [facility] 04-20-2022 08:19-0400 Heart rate 53 /min Betina Sampson [facility] 04-20-2022 08:19-0400 SaO2% (BldA) [Mass fraction] 96 % Betina Oz [facility] 04-20-2022 08:19-0400 Systolic blood pressure 100 mm[Hg] Betinachandrakant Sampson [facility] Encounters Encounter Date Encounter Type Care Provider Facility Start: 07-08-2024 ambulatory Betina Sampson Facility :[facility] Start: 12-03-2023 ambulatory Zachary Rika CHUNG Facili ty:[facility] Start: 08-08-2023 End: 08-08-2023 ambulatory [facility] Start: 07-05-2023 End: 07-06-2023 ambulatory Betina Sampson Facility:[facility] Start: 06-11-2023 End: 06-12-2023 ambulatory Betina Sampson Facility:[facility] Start: 05-24-2023 End: 05-25-2023 ambulatory Zachary Rika PAPA Facility:[id number] Start: 05-14-2023 End: 05-15-2023 [facility]ulatory [facility] Start: 05-03-2023 End: 05-04-2023 ambulatory Zachary Rika PAPA Facility:CD:[id number] Start: 04-30-2023 ambulatory Zachary CHUNG Facility :[facility] Start: 04-23-2023 End: 04-24-2023 ambulatory [facility] Start: 04-16-2023 End: 05-21-2023 ambulatory Betina Sampson Facility:[id number] Start: 04-09-2023 [facility] Start: 04-07-2023 End: 04-08-2023 ambulatory Zachary Rika PAPA Facility:[id number] Start: 01-05-2023 End: 01-05-2023 ambulatory [facility] Start: 12-06-2022 ambulatory Zachary CHUNG Facility :[facility] Start: 11-13-2022 End: 11-14-2022 ambulatory Betina Sampson Facility[facility] Start: 11-13-2022 End: 11-13-2022 Lab Drop off Betina Sampson [facility] Start: 11-13-2022 End: 11-13-2022 Patient encounter procedure Betina Sampson [facility] Start: 10-04-[address] ANTONIO IGNACIO Fac ility:[facility] Start: 08-14-2022 End: 08-14-2022 Patient encounter procedure Betina Sampson [facility] Start: 07-26-2022 End: 07-27-[address] ANTONIO IGNACIO Facility:[facility] Start: 05-11-2022 End: 05-12-[address] ANTONIO IGNACIO Facility:[facility] Start: 04-27-2022 End: 04-28-[address] ANTONIO IGNACIO Facility:[facility] Start: 04-24-[address] ANTONIO IGNACIO Fac ility:[facility] Start: 04-20-2022 End: 04-20-2022 Patient encounter procedure Betina Sampson [facility] Start: 04-20-2022 End: 04-20-2022 Patient encounter procedure Betina Sampson [facility] Start: 02-15-[address] ANTONIO IGNACIO Fac ility:[facility] Start: 02-08-2022 End: 02-08-2022 Patient encounter procedure Betina Sampson [facility] Start: 08-22-2018 End: 08-23-2018 Patient encounter procedure DEFAULT PHYSICIAN Facility:[facility] Start: 01-16-2018 End: 01-17-2018 Patient encounter procedure PROVIDER UNKNOWN Facility:[facility] Start: 12-14-2017 End: 12-15-2017 Patient encounter procedure PROVIDER UNKNOWN Facility:[facility] Start: 12-13-2017 End: 12-14-2017 Patient encounter procedure DEFAULT PHYSICIAN Facility:[facility] Start: 12-10-2017 End: 12-11-2017 Patient encounter procedure DEFAULT PHYSICIAN Facility:[facility] Procedures Date Procedure Procedure Detail Performing Clinician Start: 11-22-2017 Placement of stent i n cardiac conduit Betina Sampson Start: 09-24-2017 Colonoscopy Betina kearns Carpal tunnel syndro me of left wrist (disorder) Betina Sampson Carpal tunnel syndro me of right wrist (disorder) Betina Sampson Immunizations Immunization Date Immunization Notes Care Provider Gabriele merino 10-05-2021 SARS-CoV-2 (COVID-19 ) Ad26 vaccine, recombinant Betina Sampson [facility] 11-30-2020 SARS-CoV-2 (COVID-19 ) Ad26 vaccine, recombinant [facility] NEGATED: Highlighted row has not occurred!11-13-2022 influenza virus vaccine, unspecified formulation Betina Sampson [facility] NEGATED: Highlighted row has not occurred!11-13-2022 SARS-CoV-2 mRNA (tozinameran 5y-11y) vaccine Betina Sampson [facility] NEGATED: Highlighted row has not occurred!08-14-2022 influenza virus vaccine, unspecified formulation Betina Sampson [facility] NEGATED: Highlighted row has not occurred!08-14-2022 SARS-CoV-2 mRNA (tozinameran 5y-11y) vaccine eBtina Sampson [facility] Comment on above: Result Comment: Pt r efuses Covid booster Payers Date Payer Category Payer Medicare [id number] 1960 Self-pay [id number] 1960 Unknown [id number] 1945 Unknown [id number] 2.16.8 40.1.871589.3.579.2.647 1944 Unknown [id number] 2.16.8 40.1.357472.3.579.2.647 1944 Unknown [id number] 2.16.8 40.1.320014.3.579.2.647 1944 Unknown [id number] 2.16.8 40.1.444889.3.579.2.647 1944 Unknown [id number] 2.16.8 40.1.500100.3.579.2.647 1944 Unknown [id number] 2.16.84 0.1.147861.3.579.2.593 1944 Unknown [id number] 2.16.84 0.1.417764.3.579.2.593 1944 Unknown [id number] 2.16.84 0.1.939310.3.579.2.593 1944 Unknown [id number] 2.16.84 0.1.253362.3.579.2.593 1944 Unknown [id number] 2.16.84 0.1.560702.3.579.2.593 1944 Unknown [id number] 2.16.84 0.1.442048.3.579.2.593 1944 Unknown [id number] 2.16.8 40.1.456288.3.579.2.727 1944 Unknown [id number] 2.16.8 40.1.653435.3.579.2.727 1944 Unknown [id number] 2.16.8 40.1.382003.3.579.2.727 1944 Unknown [id number] 2.16.8 40.1.520417.3.579.2.727 1944 Unknown [id number] 2.16.8 40.1.612181.3.579.2.727 1944 Unknown [id number] 2.16.8 40.1.847388.3.579.2.727 1944 Unknown [id number] 2.16.8 40.1.900080.3.579.2.727 1944 Unknown [id number] 2.16.8 40.1.647974.3.579.2.727 1944 Unknown [id number] 2.16.8 40.1.088199.3.579.2.727 1944 Unknown [id number] 2.16.8 40.1.281704.3.579.2.727 1944 Unknown [id number] 2.16.8 40.1.960582.3.579.2.727 1944 Unknown [id number] 2.16.8 40.1.719287.3.579.2.727 Medicare [id number] Unknown Social History Date Type Detail Facility Start: 01-17-2022 End: 11-13-2022 Tobacco smoking status Never smoked tobacco (finding) [facility] Tobacco smoking status Never [facility] Sex Assigned At Male [facility] Functional Status Date Assessment Result Facility 11-13-2022 Functional Status N/A [facility] 08-14-2022 Functional Status N/A [facility] 04-20-2022 Functional Status N/A [facility] Clinical Notes 04-20-2022 to 08-08-2023 Note Date & Type Note Facility 08-08-2023 Note [facility] Subjective Ricardo Corrigan is a 78 y.o. year old male patient being seen for Follow-up Patient Active Problem List Diagnosis Coronary arteriosclerosis Essential hypertension Hyperlipidemia Coronary angioplasty status Age-related nuclear cataract, bilateral Bradycardia Chronic sinusitis Closed displaced fracture of shaft of right clavicle Diastolic dysfunction Dyspnea on exertion Encounter for fitting and adjustment of hearing aid Excessive ear wax Exposure to potentially hazardous substance Hard of hearing Low back pain Mild persistent asthma without complication Myopia Other intervertebral disc degeneration, lumbar region Presbyopia Renal stone Sensorineural hearing loss, bilateral Stage 3a chronic kidney disease (CMS/HCC) Subjective tinnitus Vitamin D deficiency No family history on file. Social History Tobacco Use Smoking status: Never Smokeless tobacco: Never Substance Use Topics Alcohol use: Yes Comment: occasional Drug use: Never HPI Mr Corrigan is seen in follow up. He was initially referred from Dr Swan's office for hypertension. He has hyperlipidemia. He has CAD s/p stenting of the Circumflex with Synergy STEPHANY on 12/14/2017. He has moderate LAD stenosis with negative FFR in 12/2017. Visit of 12/12/2017: He is a 72 yo man with history of hypertension and dyslipidemia on treatment for about 2 year.s Recently he developed pain in the back across the shoulder blade, associated with headache and elevated blood pressure about 195/104. He was seen in [facility] ED and D-Dimers were mildly elevated, CT scan showed no PE or other abnormalities. CXR was negative. Cardiac enzymes were negative. Dr Swan increased his lisinopril from 5 to 10 mg daily. He has been having dyspnea on exertion recently. This is moderate on mild to moderate activity and relieved by rest. No chest pain. ECG 11/16/2017: normal sinus rhythm with occasional PVCs Echocardiogram 12/06/2017: Low normal LV systolic function, EF 50-55%. Mild diastolic dysfunction. No significant valvular dysfunction. CT scan 11/16/2017: No pulmonary embolus. No thoracic aortic aneurysm or gross dissection. Update 01/09/2018: To investigate his symptoms, I asked for a stress test. His stress test showed inferolateral ischemia. He underwent cardiac cath which showed 2 vessel disease. He underwent Synergy STEPHANY stenting of the circumflex and is planned for FFR assessment of the LAD. He is still getting dyspnea on exertion. Cardiac cath 12/14/2017: 1. Severe 2-vessel coronary artery disease. 2. 70% stenosis in the mid LAD right after the first diagonal branch. 3. 80% complex hazy stenosis in the second obtuse marginal branch with involvement of its bifurcation into a superior and an inferior branch successfully reduced to 0% by balloon angioplasty and drug-eluting stenting as noted above. 4. Mild disease in the right coronary artery. Update 02/13/2018: On 01/16/2018 he underwent FFR to the LAD stenosis and this was not hemodynamically significant. We left it for medical therapy. He has been doing cardiac rehab and feels good with that. No chest pain. Occasional dyspnea on exertion. Otherwise ok. Update 07/29/2018: He is seen in follow up. He is doing well. No chest pain. He has mild dyspnea on exertion that he relates to his sinus congestion. He has no palpitations. He has no claudication. His LDL was 76 in 01/2018. No bleeding issues. Update 03/25/2019: He is seen in follow up. He is doing well. No chest pain. He has mild dyspnea on exertion that he relates to his sinus congestion. He has no palpitations. He has no claudication. Carotid u/s on 08/22/2019: No significant stenosis. Update 03/20/2022: He is seen in follow-up. He had COVID-pneumonia in the end of 2020. He reports that he has been having shortness of breath on mild to moderate exertion. This is limiting him. He does not have chest pain. Shortness of breath is getting worse and bothering him. No lower extremity edema. He is taking medications as prescribed. A stress test was performed that showed areas of fixed inferior and apical defects. No ischemia. Ejection fraction was preserved. LDL July 2021: 85. Blood testing 08/24/2021: Hemoglobin 14.9, platelets 166, BUN 23, creatinine 1.19, NT proBNP 162, high-sensitivity troponin 7.9, D-dimer 1.24. CT angiogram of the chest 08/24/2021: No pulmonary embolism, moderate patchy infiltrates throughout the lungs suggestive of pneumonia. Stress test 02/08/2022: Lexiscan nuclear stress test, abnormal Lexiscan nuclear stress test for fixed inferior and apical defect, possibly artifact. Transient ischemic dilatation ratio was 1.05, ejection fraction was 67%. 01/19/21 Lexiscan stress test- Moderate fixed defect of inferior wall, no reversible defect or ischemia. normal exercise test. Visit of 04/24/2022: He is seen in (more content not included)... [facility] 04-16-2023 Note [id number]:127 [facility] 01-05-2023 Note Patient here for 6 m o follow up CAD, hypertension, and hyperlipidemia. Saw Dr. Sampson in Oct 2022 and said he was told his BP was low. Says at home when he checks it it's around 116/80's. Says sometimes he takes a whole tablet of metoprolol because he doesn't feel like cutting it. Patient denies change in JASSO. states sometimes it depends what he's doing. One day he walked to the mailbox and was completely exhausted when he got back. BP on the low side today and he said he took an entire tablet of metoprolol this morning. Review of Systems Constitutional: Positive for malaise/fatigue. HENT: Positive for hearing loss. Cardiovascular: Positive for dyspnea on exertion. Musculoskeletal: Positive for arthritis, back pain and joint pain. All other systems reviewed and are negative. [facility] 01-05-2023 Note Cardiovascular Medic [facility] SUBJECTIVE Chief Complaint Patient presents with Coronary Artery Disease Hypertension Hyperlipidemia Ricardo Corrigan is a 77 y.o. male here for follow-up for his known CAD s/p PCI, HTN, HLD. HPI Previous HPI per Dr. Ignacio: Mr Corrigan is seen in follow up. He was initially referred from Dr Swan's office for hypertension. He has hyperlipidemia. He has CAD s/p stenting of the Circumflex with Synergy STEPHANY on 12/14/2017. He has moderate LAD stenosis with negative FFR in 12/2017. Visit of 12/12/2017: He is a 72 yo man with history of hypertension and dyslipidemia on treatment for about 2 year.s Recently he developed pain in the back across the shoulder blade, associated with headache and elevated blood pressure about 195/104. He was seen in [facility] ED and D-Dimers were mildly elevated, CT scan showed no PE or other abnormalities. CXR was negative. Cardiac enzymes were negative. Dr Swan increased his lisinopril from 5 to 10 mg daily. He has been having dyspnea on exertion recently. This is moderate on mild to moderate activity and relieved by rest. No chest pain. Update 01/09/2018: To investigate his symptoms, I asked for a stress test. His stress test showed inferolateral ischemia. He underwent cardiac cath which showed 2 vessel disease. He underwent Synergy STEPHANY stenting of the circumflex and is planned for FFR assessment of the LAD. He is still getting dyspnea on exertion. Update 02/13/2018: On 01/16/2018 he underwent FFR to the LAD stenosis and this was not hemodynamically significant. We left it for medical therapy. He has been doing cardiac rehab and feels good with that. No chest pain. Occasional dyspnea on exertion. Otherwise ok. Update 07/29/2018: He is seen in follow up. He is doing well. No chest pain. He has mild dyspnea on exertion that he relates to his sinus congestion. He has no palpitations. He has no claudication. His LDL was 76 in 01/2018. No bleeding issues. Update 03/25/2019: He is seen in follow up. He is doing well. No chest pain. He has mild dyspnea on exertion that he relates to his sinus congestion. He has no palpitations. He has no claudication. Update 03/20/2022: He is seen in follow-up. He had COVID-pneumonia in the end of 2020. He reports that he has been having shortness of breath on mild to moderate exertion. This is limiting him. He does not have chest pain. Shortness of breath is getting worse and bothering him. No lower extremity edema. He is taking medications as prescribed. A stress test was performed that showed areas of fixed inferior and apical defects. No ischemia. Ejection fraction was preserved. Visit of 04/24/2022: He is seen in follow-up. At last visit and due to symptoms of angina I added isosorbide mononitrate 30 mg daily. I also intensified statin therapy and increase simvastatin to 20 mg daily. He reports that he has been taking his medications. He continues to have the same symptoms of shortness of breath on mild exertion. He feels exhausted by doing any activities. He is generally fatigued. He still denies chest pain. Visit of 07/10/2022: He is seen in follow-up. following last visit and due to shortness of breath on exertion I checked PFTs. Those showed mild obstructive lung disease with positive bronchodilator response. I referred him to pulmonary. The impression is that he has mild asthma. A trial of medication was started. He reports that he has been feeling a little better. He denies chest pain. He still has shortness of breath on exertion but he has not been exerting himself too much. He does say that walking is okay. He has no palpitations. No leg edema. He also complains of inner thigh muscle pains. 01/05/2023 - follow-up He denies any changes since last seen. He continues to have JASSO with certain activities, unchanged. He will often take the full tablet of his metoprolol tartrate 25mg twice daily as he does not want to have to cut the pill in half. He denies c/o CP, orthopnea, PND, LE edema, dizziness/LH, palpitations, syncope. Patient Active Problem List Diagnosis Coronary arteriosclerosis Essential hypertension Hyperlipidemia Coronary angioplasty status Past Medical History: Diagnosis Date Coronary artery disease Hyperlipidemia Hypertension No family history on file. Social History Tobacco Use Smoking status: Former Types: Cigarettes Smokeless tobacco: Never Substance Use Topics Alcohol use: Yes Comment: occasional Drug use: Never No Known Allergies ROS Constitutional: Positive for malaise/fatigue. HENT: Positive for hearing loss. Cardiovascular: Positive for dyspnea on exertion. Musculoskeletal: Positive for arthritis, back pain and joint pain. All other systems reviewed and are negative. OBJECTIVE Visit Vitals BP 103/73 (BP Locati (more content not included)... [facility] 11-13-2022 Hospital Discharge instructions Patient Education 11/13/2022 09:06:48 BMI for Adults BMI for Adults Body mass index (BMI) is a number that is calculated from a person's weight and height. BMI may help to estimate how much of a person's weight is composed of fat. BMI can help identify those who may be at higher risk for certain medical problems. How is BMI used with adults? BMI is used as a screening tool to identify possible weight problems. It is used to check whether a person is obese, overweight, healthy weight, or underweight. How is BMI calculated? BMI measures your weight and compares it to your height. This can be done either in [place] or metric measurements. Note that charts are available to help you find your BMI quickly and easily without having to do these calculations yourself. To calculate your BMI in [place] ([place] measurements, your health care provider will: 1.Measure your weight in pounds (lb). 2.Multiply the number of pounds by 703. For example, for a person who weighs 180 lb, multiply that number by 703, which equals 126,540. 3.Measure your height in inches (in). Then multiply that number by itself to get a measurement called inches squared. For example, for a person who is 70 in tall, the inches squared measurement is 70 in x 70 in, which equals 4900 inches squared. 4.Divide the total from Step 2 (number of lb x 703) by the total from Step 3 (inches squared): 126,540 4900 = 25.8. This is your BMI. To calculate your BMI in metric measurements, your health care provider will: 1.Measure your weight in kilograms (kg). 2.Measure your height in meters (m). Then multiply that number by itself to get a measurement called meters squared. For example, for a person who is 1.75 m tall, the meters squared measurement is 1.75 m x 1.75 m, which is equal to 3.1 meters squared. 3.Divide the number of kilograms (your weight) by the meters squared number. In this example: 70 3.1 = 22.6. This is your BMI. How is BMI interpreted? To interpret your results, your health care provider will use BMI charts to identify whether you are underweight, normal weight, overweight, or obese. The following guidelines will be used: Underweight: BMI less than 18.5. Normal weight: BMI between 18.5 and 24.9. Overweight: BMI between 25 and 29.9. Obese: BMI of 30 and above. Please note: Weight includes both fat and muscle, so someone with a muscular build, such as an athlete, may have a BMI that is higher than 24.9. In cases like these, BMI is not an accurate measure of body fat. To determine if excess body fat is the cause of a BMI of 25 or higher, further assessments may need to be done by a health care provider. BMI is usually interpreted in the same way for men and women. Why is BMI a useful tool? BMI is useful in two ways: Identifying a weight problem that may be related to a medical condition, or that may increase the risk for medical problems. Promoting lifestyle and diet changes in order to reach a healthy weight. Summary Body mass index (BMI) is a number that is calculated from a person's weight and height. BMI may help to estimate how much of a person's weight is composed of fat. BMI can help identify those who may be at higher risk for certain medical problems. BMI can be measured using Finnish measurements or metric measurements. To interpret your results, your health care provider will use BMI charts to identify whether you are underweight, normal weight, overweight, or obese. This information is not intended to replace advice given to you by your health care provider. Make sure you discuss any questions you have with your health care provider. Document Released: 05/22/2005 Document Revised: 08/23/2018 Document Reviewed: 07/24/2018 [employer] Patient Education 2020 [employer] [facility] 08-14-2022 Hospital Discharge instructions Patient Education 08/14/2022 11:55:30 BMI for Adults BMI for Adults Body mass index (BMI) is a number that is calculated from a person's weight and height. BMI may help to estimate how much of a person's weight is composed of fat. BMI can help identify those who may be at higher risk for certain medical problems. How is BMI used with adults? BMI is used as a screening tool to identify possible weight problems. It is used to check whether a person is obese, overweight, healthy weight, or underweight. How is BMI calculated? BMI measures your weight and compares it to your height. This can be done either in [place] ([place] or metric measurements. Note that charts are available to help you find your BMI quickly and easily without having to do these calculations yourself. To calculate your BMI in [place] measurements, your health care provider will: 1.Measure your weight in pounds (lb). 2.Multiply the number of pounds by 703. For example, for a person who weighs 180 lb, multiply that number by 703, which equals 126,540. 3.Measure your height in inches (in). Then multiply that number by itself to get a measurement called inches squared. For example, for a person who is 70 in tall, the inches squared measurement is 70 in x 70 in, which equals 4900 inches squared. 4.Divide the total from Step 2 (number of lb x 703) by the total from Step 3 (inches squared): 126,540 4900 = 25.8. This is your BMI. To calculate your BMI in metric measurements, your health care provider will: 1.Measure your weight in kilograms (kg). 2.Measure your height in meters (m). Then multiply that number by itself to get a measurement called meters squared. For example, for a person who is 1.75 m tall, the meters squared measurement is 1.75 m x 1.75 m, which is equal to 3.1 meters squared. 3.Divide the number of kilograms (your weight) by the meters squared number. In this example: 70 3.1 = 22.6. This is your BMI. How is BMI interpreted? To interpret your results, your health care provider will use BMI charts to identify whether you are underweight, normal weight, overweight, or obese. The following guidelines will be used: Underweight: BMI less than 18.5. Normal weight: BMI between 18.5 and 24.9. Overweight: BMI between 25 and 29.9. Obese: BMI of 30 and above. Please note: Weight includes both fat and muscle, so someone with a muscular build, such as an athlete, may have a BMI that is higher than 24.9. In cases like these, BMI is not an accurate measure of body fat. To determine if excess body fat is the cause of a BMI of 25 or higher, further assessments may need to be done by a health care provider. BMI is usually interpreted in the same way for men and women. Why is BMI a useful tool? BMI is useful in two ways: Identifying a weight problem that may be related to a medical condition, or that may increase the risk for medical problems. Promoting lifestyle and diet changes in order to reach a healthy weight. Summary Body mass index (BMI) is a number that is calculated from a person's weight and height. BMI may help to estimate how much of a person's weight is composed of fat. BMI can help identify those who may be at higher risk for certain medical problems. BMI can be measured using Finnish measurements or metric measurements. To interpret your results, your health care provider will use BMI charts to identify whether you are underweight, normal weight, overweight, or obese. This information is not intended to replace advice given to you by your health care provider. Make sure you discuss any questions you have with your health care provider. Document Released: 05/22/2005 Document Revised: 08/23/2018 Document Reviewed: 07/24/2018 [employer] Patient Education 2019 [employer] [facility] 04-20-2022 Hospital Discharge instructions Patient Education 04/20/2022 08:30:15 Heart Attack, Oxel-eu-Utgs Heart Attack A heart attack occurs when blood and oxygen supply to the heart is cut off. A heart attack causes damage to the heart that cannot be fixed. A heart attack is also called a myocardial infarction, or MN. If you think you are having a heart attack, do not wait to see if the symptoms will go away. Get medical help right away. What are the causes? This condition may be caused by: A fatty substance (plaque) in the blood vessels (arteries). This can block the flow of blood to the heart. A blood clot in the blood vessels that go to the heart. The blood clot blocks blood flow. Low blood pressure. An abnormal heartbeat. Some diseases, such as problems in red blood cells (anemia)orproblems in breathing (respiratory failure). Tightening (spasm) of a blood vessel that cuts off blood to the heart. A tear in a blood vessel of the heart. High blood pressure. What increases the risk? The following factors may make you more likely to develop this condition: Aging. The older you are, the higher your risk. Having a personal or family history of chest pain, heart attack, stroke, or narrowing of the arteries in the legs, arms, head, or stomach (peripheral artery disease). Being male. Smoking. Not getting regular exercise. Being overweight or obese. Having high blood pressure. Having high cholesterol. Having diabetes. Drinking too much alcohol. Using illegal drugs, such as cocaine or methamphetamine. What are the signs or symptoms? Symptoms of this condition include: Chest pain. It may feel like: ?Crushing or squeezing. ?Tightness, pressure, fullness, or heaviness. Pain in the arm, neck, jaw, back, or upper body. Shortness of breath. Heartburn. Upset stomach (indigestion). Feeling like you may vomit (nauseous). Cold sweats. Feeling tired. Sudden light-headedness. How is this treated? A heart attack must be treated as soon as possible. Treatment may include: Medicines to: ?Break up or dissolve blood clots. ?Thin blood and help prevent blood clots. ?Treat blood pressure. ?Improve blood flow to the heart. ?Reduce pain. ?Reduce cholesterol. Procedures to widen a blocked artery and keep it open. Open heart surgery. Receiving oxygen. Making your heart strong again (cardiac rehabilitation) through exercise, education, and counseling. Follow these instructions at home: Medicines Take [id number] and prescription medicines only as told by your doctor. You may need to take medicine: ?To keep your blood from clotting too easily. ?To control blood pressure. ?To lower cholesterol. ?To control heart rhythms. Do not take these medicines unless your doctor says it is okay: ?NSAIDs, such as ibuprofen. ?Supplements that have vitamin A, vitamin E, or both. ?Hormone replacement therapy that has estrogen with or without progestin. Lifestyle Do not use any products that have nicotine or tobacco, such as cigarettes, e-cigarettes, and chewing tobacco. If you need help quitting, ask your doctor. Avoid secondhand smoke. Exercise regularly. Ask your doctor about a cardiac rehab program. Eat heart-healthy foods. Your doctor will tell you what foods to eat. Stay at a healthy weight. Lower your stress level. Do not use illegal drugs. Alcohol use Do not drink alcohol if: ?Your doctor tells you not to drink. ?You are , may be , or are planning to become . If you drink alcohol: ?Limit how much you use to: ?0 1 drink a day for women. ?0 2 drinks a day for men. ?Know how much alcohol is in your drink. In the [place] one drink equals one 12 oz bottle of beer (355 mL), one 5 oz glass of wine (148 mL), or one 1 oz glass of hard liquor (44 mL). General instructions Work with your doctor to treat other problems you may have, such as diabetes or high blood pressure. Get screened for depression. Get treatment if needed. Keep your vaccines up to date. Get the flu shot (influenza vaccine) every year. Keep all follow-up visits as told by your doctor. This is important. Contact a doctor if: You feel very sad. You have trouble doing your daily activities. Get help right away if: You have sudden, unexplained discomfort in your chest, arms, back, neck, jaw, or upper body. You have shortness of breath. You have sudden sweating or clammy skin. You feel like you may vomit. You vomit. You feel tired or weak. You get light-headed or dizzy. You feel your heart beating fast. You feel your heart skipping beats. You have blood pressure that is higher than 180/120. These symptoms may be an emergency. Do not wait to see if the symptoms will go away. Get medical help right away. Call your local emergency services (911 in the [place] Do not drive yourself to the hospital. Summary A heart attack occurs when blood and oxygen supply to the heart is cut off. Do not take NSAIDs unless your doctor says it is okay. Do not smoke. Avoid secondhand smoke. Exercise regularly. Ask your doctor about a cardiac rehab program. This information is not intended to replace advice given to you by your health care provider. Make sure you discuss any questions you have with your health care provider. Document Released: 03/11/2013 Document Revised: 12/22/2019 Document Reviewed: 12/22/2019 [employer] Patient Education 2020 [employer] 04/20/2022 08:29:45 Atherosclerosis Atherosclerosis Atherosclerosis is narrowing and hardening of the arteries. Arteries are blood vessels that carry blood from the heart to all parts of the body. This blood contains oxygen. Arteries can become narrow or clogged with a buildup of fat, cholesterol, calcium, and other substances (plaque). Plaque decreases the amount of blood that can flow through the artery. Atherosclerosis can affect any artery in the body, including: Heart arteries (coronary artery disease). This may cause a heart attack. Brain arteries. This may cause a stroke (cerebrovascular accident). Leg, arm, and pelvis arteries (peripheral artery disease). This may cause pain and numbness. Kidney arteries. This may cause kidney (renal) failure. Treatment may slow the disease and prevent further damage to the heart, brain, peripheral arteries, and kidneys. What are the causes? Atherosclerosis develops slowly over many years. The inner layers of your arteries become damaged and allow the gradual buildup of plaque. The exact cause of atherosclerosis is not fully understood. Symptoms of atherosclerosis do not occur until the artery becomes narrow or blocked. What increases the risk? The following factors may make you more likely to develop this condition: High blood pressure. High cholesterol. Being middle-aged or older. Having a family history of atherosclerosis. Having high blood fats (triglycerides). Diabetes. Being overweight. Smoking tobacco. Not exercising enough (sedentary lifestyle). Having a substance in the blood called C-reactive protein (CRP). This is a sign of increased levels of inflammation in the body. Sleep apnea. Being stressed. Drinking too much alcohol. What are the signs or symptoms? This condition may not cause any symptoms. If you have symptoms, they are caused by damage to an area of your body that is not getting enough blood. Coronary artery disease may cause chest pain and shortness of breath. Decreased blood supply to your brain may cause a stroke. Signs of a stroke may include sudden: ?Weakness on one side of the body. ?Confusion. ?Changes in vision. ?Inability to speak or understand speech. ?Loss of balance, coordination, or the ability to walk. ?Severe headache. ?Loss of consciousness. Peripheral arterial disease may cause pain and numbness, often in the legs and hips. Renal failure may cause fatigue, nausea, swelling, and itchy skin. How is this diagnosed? This condition is diagnosed based on your medical history and a physical exam. During the exam: Your health care provider will: ?Check your pulse in different places. ?Listen for a whooshing sound over your arteries (bruit). You may have tests, such as: ?Blood tests to check your levels of cholesterol, triglycerides, and CRP. ?Electrocardiogram (ECG) to check for heart damage. ?Chest X-ray to see if you have an enlarged heart, which is a sign of heart failure. ?Stress test to see how your heart reacts to exercise. ?Echocardiogram to get images of the inside of your heart. ?Ankle-brachial index to compare blood pressure in your arms to blood pressure in your ankles. ?Ultrasound of your peripheral arteries to check blood flow. ?CT scan to check for damage to your heart or brain. ?X-rays of blood vessels after dye has been injected (angiogram) to check blood flow. How is this treated? Treatment starts with lifestyle changes, which may include: Changing your diet. Losing weight. Reducing stress. Exercising and being physically active more regularly. Not smoking. You may also need medicine to: Lower triglycerides and cholesterol. Control blood pressure. Prevent blood clots. Lower inflammation in your body. Control your blood sugar. Sometimes, surgery is needed to: Remove plaque from an artery (endarterectomy). Open or widen a narrowed heart artery (angioplasty). Create a new path for your blood with one of these procedures: ?Heart (coronary) artery bypass graft surgery. ?Peripheral artery bypass graft surgery. Follow these instructions at home: Eating and drinking Eat a heart-healthy diet. Talk with your health care provider or a diet and nutrition educator (dietitian) if you need help. A heart-healthy diet involves: ?Limiting unhealthy fats and increasing healthy fats. Some examples of healthy fats are olive oil and canola oil. ?Eating plant-based foods, such as fruits, vegetables, nuts, whole grains, and legumes (such as peas and lentils). Limit alcohol intake to no more than 1 drink a day for non women and 2 drinks a day for men. One drink equals 12 oz of beer, 5 oz of wine, or 1 oz of hard liquor. Lifestyle Follow an exercise program as told by your health care provider. Maintain a healthy weight. Lose weight if your health care provider says that you need to do that. Rest when you are tired. Learn to manage your stress. Do not use any products that contain nicotine or tobacco, such as cigarettes and e-cigarettes. If you need help quitting, ask your health care provider. Do not abuse drugs. General instructions Take lgbt-nts-fonwpmg and prescription medicines only as told by your health care provider. Manage other health conditions as told by your health care provider. Keep all follow-up visits as told by your health care provider. This is important. Contact a health care provider if: You have chest pain or discomfort. This includes squeezing chest pain that may feel like indigestion (angina). You have shortness of breath. You have an irregular heartbeat. You have unexplained fatigue. You have unexplained pain or numbness in an arm, leg, or hip. You have nausea, swelling of your hands or feet, and itchy skin. Get help right away if: You have any symptoms of a heart attack, such as: ?Chest pain. ?Shortness of breath. ?Pain in your neck, jaw, arms, back, or stomach. ?Cold sweat. ?Nausea. ?Light-headedness. You have any symptoms of a stroke. BE FAST is an easy way to remember the main warning signs of a stroke: ?B - Balance. Signs are dizziness, sudden trouble walking, or loss of balance. ?E - Eyes. Signs are trouble seeing or a sudden change in vision. ?F - Face. Signs are sudden weakness or numbness of the face, or the face or eyelid drooping on one side. ?A - Arms. Signs are weakness or numbness in an arm. This happens suddenly and usually on one side of the body. ?S - Speech. Signs are sudden trouble speaking, slurred speech, or trouble understanding what people say. ?T - Time. Time to call emergency services. Write down what time symptoms started. You have other signs of a stroke, such as: ?A sudden, severe headache with no known cause. ?Nausea or vomiting. ?Seizure. These symptoms may represent a serious problem that is an emergency. Do not wait to see if the symptoms will go away. Get medical help right away. Call your local emergency services (911 in the [place] Do not drive yourself to the hospital. Summary Atherosclerosis is narrowing and hardening of the arteries. Arteries can become narrow or clogged with a buildup of fat, cholesterol, calcium, and other substances (plaque). This condition may not cause any symptoms. If you do have symptoms, they are caused by damage to an area of your body that is not getting enough blood. Treatment may include lifestyle changes and medicines. In some cases, surgery is needed. This information is not intended to replace advice given to you by your health care provider. Make sure you discuss any questions you have with your health care provider. Document Released: 11/30/2004 Document Revised: 12/20/2018 Document Reviewed: 05/16/2018 [employer] Patient Education 2020 [employer] 04/20/2022 08:29:43 Angina Angina Angina is extreme discomfort in the chest, neck, arm, jaw, or back. The discomfort is caused by a lack of blood in the middle layer of the heart wall (myocardium). There are four types of angina: Stable angina. This is triggered by vigorous activity or exercise. It goes away when you rest or take angina medicine. Unstable angina. This is a warning sign and can lead to a heart attack (acute coronary syndrome). This is a medical emergency. Symptoms come at rest and last a long time. Microvascular angina. This affects the small coronary arteries. Symptoms include feeling tired and being short of breath. Prinzmetal or variant angina. This is caused by a tightening (spasm) of the arteries that go to your heart. What are the causes? This condition is caused by atherosclerosis. This is the buildup of fat and cholesterol (plaque) in your arteries. The plaque may narrow or block the artery. Other causes of angina include: Sudden tightening of the muscles of the arteries in the heart (coronary spasm). Small artery disease (microvascular dysfunction). Problems with any of your heart valves (heart valve disease). A tear in an artery in your heart (coronary artery dissection). Diseases of the heart muscle (cardiomyopathy), or other heart diseases. What increases the risk? You are more likely to develop this condition if you have: High cholesterol. High blood pressure (hypertension). Diabetes. A family history of heart disease. An inactive (sedentary) lifestyle, or you do not exercise enough. Depression. Had radiation treatment to the left side of your chest. Other risk factors include: Using tobacco. Being obese. Eating a diet high in saturated fats. Being exposed to high stress or triggers of stress. Using drugs, such as cocaine. Women have a greater risk for angina if: They are older than 55. They have gone through menopause (are postmenopausal). What are the signs or symptoms? Common symptoms of this condition in both men and women may include: Chest pain, which may: ?Feel like a crushing or squeezing in the chest, or like a tightness, pressure, fullness, or heaviness in the chest. ?Last for more than a few minutes at a time, or it may stop and come back (recur) over the course of a few minutes. Pain in the neck, arm, jaw, or back. Unexplained heartburn or indigestion. Shortness of breath. Nausea. Sudden cold sweats. Women and people with diabetes may have unusual (atypical) symptoms, such as: Fatigue. Unexplained feelings of nervousness or anxiety. Unexplained weakness. Dizziness or fainting. How is this diagnosed? This condition may be diagnosed based on: Your symptoms and medical history. Electrocardiogram (ECG) to measure the electrical activity in your heart. Blood tests. Stress test to look for signs of blockage when your heart is stressed. CT angiogram to examine your heart and the blood flow to it. Coronary angiogram to check your coronary arteries for blockage. How is this treated? Angina may be treated with: Medicines to: ?Prevent blood clots and heart attack. ?Relax blood vessels and improve blood flow to the heart (nitrates). ?Reduce blood pressure, improve the pumping action of the heart, and relax blood vessels that are spasming. ?Reduce cholesterol and help treat atherosclerosis. A procedure to widen a narrowed or blocked coronary artery (angioplasty). A mesh tube may be placed in a coronary artery to keep it open (coronary stenting). Surgery to allow blood to go around a blocked artery (coronary artery bypass surgery). Follow these instructions at home: Medicines Take xcgj-dpg-fvqhefy and prescription medicines only as told by your health care provider. Do not take the following medicines unless your health care provider approves: ?NSAIDs, such as ibuprofen or naproxen. ?Vitamin supplements that contain vitamin A, vitamin E, or both. ?Hormone replacement therapy that contains estrogen with or without progestin. Eating and drinking Eat a heart-healthy diet. This includes plenty of fresh fruits and vegetables, whole grains, low-fat (lean) protein, and low-fat dairy products. Follow instructions from your health care provider about eating or drinking restrictions. Activity Follow an exercise program approved by your health care provider. Consider joining a cardiac rehabilitation program. Take a break when you feel fatigued. Plan rest periods in your daily activities. Lifestyle Do not use any products that contain nicotine or tobacco, such as cigarettes, e-cigarettes, and chewing tobacco. If you need help quitting, ask your health care provider. If your health care provider says you can drink alcohol: ?Limit how much you use to: ?0 1 drink a day for non women. ?0 2 drinks a day for men. ?Be aware of how much alcohol is in your drink. In the [place] one drink equals one 12 oz bottle of beer (355 mL), one 5 oz glass of wine (148 mL), or one 1 oz glass of hard liquor (44 mL). General instructions Maintain a healthy weight. Learn to manage stress. Keep your vaccinations up to date. Get the flu (influenza) vaccine every year. Talk to your health care provider if you feel depressed. Take a depression screening test to see if you are at risk for depression. Work with your health care provider to manage other health conditions, such as hypertension or diabetes. Keep all follow-up visits as told by your health care provider. This is important. Get help right away if: You have pain in your chest, neck, arm, jaw, or back, and the pain: ?Lasts more than a few minutes. ?Is recurring. ?Is not relieved by taking medicines under the tongue (sublingual nitroglycerin). ?Increases in intensity or frequency. You have a lot of sweating without cause. You have unexplained: ?Heartburn or indigestion. ?Shortness of breath or difficulty breathing. ?Nausea or vomiting. ?Fatigue. ?Feelings of nervousness or anxiety. ?Weakness. You have sudden light-headedness or dizziness. You faint. These symptoms may represent a serious problem that is an emergency. Do not wait to see if the symptoms will go away. Get medical help right away. Call your local emergency services (911 in the [place] Do not drive yourself to the hospital. Summary Angina is extreme discomfort in the chest, neck, arm, jaw, or back that is caused by a lack of blood in the heart wall. There are many symptoms of angina. They include chest pain, unexplained heartburn or indigestion, sudden cold sweats, and fatigue. Angina may be treated with behavioral changes, medicine, or surgery. Symptoms of angina may represent an emergency. Get medical help right away. Call your local emergency services (911 in the [place] Do not drive yourself to the hospital. This information is not intended to replace advice given to you by your health care provider. Make sure you discuss any questions you have with your health care provider. Document Released: 09/10/2006 Document Revised: 04/28/2019 Document Reviewed: 04/28/2019 [employer] Patient Education 2020 [employer] 04/20/2022 08:29:40 Obesity, Adult, Ndyf-fx-[id number] Obesity, Adult Obesity is having too much body fat. Being obese means that your weight is more than what is healthy for you. BMI is a number that explains how much body fat you have. If you have a BMI of 30 or more, you are obese. Obesity is often caused by eating or drinking more calories than your body uses. Changing your lifestyle can help you lose weight. Obesity can cause serious health problems, such as: Stroke. Coronary artery disease (CAD). Type 2 diabetes. Some types of cancer, including cancers of the colon, breast, uterus, and gallbladder. Osteoarthritis. High blood pressure (hypertension). High cholesterol. Sleep apnea. Gallbladder stones. Infertility problems. What are the causes? Eating meals each day that are high in calories, sugar, and fat. Being born with genes that may make you more likely to become obese. Having a medical condition that causes obesity. Taking certain medicines. Sitting a lot (having a sedentary lifestyle). Not getting enough sleep. Drinking a lot of drinks that have sugar in them. What increases the risk? Having a family history of obesity. Being an woman. Being a man. Living in an area with limited access to: ?[place], recreation centers, or sidewalks. ?Healthy food choices, such as grocery stores and [place]. What are the signs or symptoms? The main sign is having too much body fat. How is this treated? Treatment for this condition often includes changing your lifestyle. Treatment may include: ?Changing your diet. This may include making a healthy meal plan. ?Exercise. This may include activity that causes your heart to beat faster (aerobic exercise) and strength training. Work with your doctor to design a program that works for you. ?Medicine to help you lose weight. This may be used if you are not able to lose 1 pound a week after 6 weeks of healthy eating and more exercise. ?Treating conditions that cause the obesity. ?Surgery. Options may include gastric banding and gastric bypass. This may be done if: ?Other treatments have not helped to improve your condition. ?You have a BMI of 40 or higher. ?You have life-threatening health problems related to obesity. Follow these instructions at home: Eating and drinking Follow advice from your doctor about what to eat and drink. Your doctor may tell you to: ?Limit fast food, sweets, and processed snack foods. ?Choose low-fat options. For example, choose low-fat milk instead of whole milk. ?Eat 5 or more servings of fruits or vegetables each day. ?Eat at home more often. This gives you more control over what you eat. ?Choose healthy foods when you eat out. ?Learn to read food labels. This will help you learn how much food is in 1 serving. ?Keep low-fat snacks available. ?Avoid drinks that have a lot of sugar in them. These include soda, fruit juice, iced tea with sugar, and flavored milk. Drink enough water to keep your pee (urine) pale yellow. Do not go on fad diets. Physical activity Exercise often, as told by your doctor. Most adults should get up to 150 minutes of moderate-intensity exercise every week.Ask your doctor: ?What types of exercise are safe for you. ?How often you should exercise. Warm up and stretch before being active. Do slow stretching after being active (cool down). Rest between times of being active. Lifestyle Work with your doctor and a food expert (dietitian) to set a weight-loss goal that is best for you. Limit your screen time. Find ways to reward yourself that do not involve food. Do not drink alcohol if: ?Your doctor tells you not to drink. ?You are , may be , or are planning to become . If you drink alcohol: ?Limit how much you use to: ?0 1 drink a day for women. ?0 2 drinks a day for men. ?Be aware of how much alcohol is in your drink. In the [place] one drink equals one 12 oz bottle of beer (355 mL), one 5 oz glass of wine (148 mL), or one 1 oz glass of hard liquor (44 mL). General instructions Keep a weight-loss journal. This can help you keep track of: ?The food that you eat. ?How much exercise you get. Take ocnw-kzo-pmlkomw and prescription medicines only as told by your doctor. Take vitamins and supplements only as told by your doctor. Think about joining a support group. Keep all follow-up visits as told by your doctor. This is important. Contact a doctor if: You cannot meet your weight loss goal after you have changed your diet and lifestyle for 6 weeks. Get help right away if you: Are having trouble breathing. Are having thoughts of harming yourself. Summary Obesity is having too much body fat. Being obese means that your weight is more than what is healthy for you. Work with your doctor to set a weight-loss goal. Get regular exercise as told by your doctor. This information is not intended to replace advice given to you by your health care provider. Make sure you discuss any questions you have with your health care provider. Document Released: 12/02/2012 Document Revised: 05/15/2019 Document Reviewed: 05/15/2019 [employer] Patient Education 2020 [employer] 04/20/2022 08:29:38 Hypertension, Adult Hypertension, Adult High blood pressure (hypertension) is when the force of blood pumping through the arteries is too strong. The arteries are the blood vessels that carry blood from the heart throughout the body. Hypertension forces the heart to work harder to pump blood and may cause arteries to become narrow or stiff. Untreated or uncontrolled hypertension can cause a heart attack, heart failure, a stroke, kidney disease, and other problems. A blood pressure reading consists of a higher number over a lower number. Ideally, your blood pressure should be below 120/80. The first ( top ) number is called the systolic pressure. It is a measure of the pressure in your arteries as your heart beats. The second ( bottom ) number is called the diastolic pressure. It is a measure of the pressure in your arteries as the heart relaxes. What are the causes? The exact cause of this condition is not known. There are some conditions that result in or are related to high blood pressure. What increases the risk? Some risk factors for high blood pressure are under your control. The following factors may make you more likely to develop this condition: Smoking. Having type 2 diabetes mellitus, high cholesterol, or both. Not getting enough exercise or physical activity. Being overweight. Having too much fat, sugar, calories, or salt (sodium) in your diet. Drinking too much alcohol. Some risk factors for high blood pressure may be difficult or impossible to change. Some of these factors include: Having chronic kidney disease. Having a family history of high blood pressure. Age. Risk increases with age. Race. You may be at higher risk if you are . Gender. Men are at higher risk than women before age 45. After age 65, women are at higher risk than men. Having obstructive sleep apnea. Stress. What are the signs or symptoms? High blood pressure may not cause symptoms. Very high blood pressure (hypertensive crisis) may cause: Headache. Anxiety. Shortness of breath. Nosebleed. Nausea and vomiting. Vision changes. Severe chest pain. Seizures. How is this diagnosed? This condition is diagnosed by measuring your blood pressure while you are seated, with your arm resting on a flat surface, your legs uncrossed, and your feet flat on the floor. The cuff of the blood pressure monitor will be placed directly against the skin of your upper arm at the level of your heart. It should be measured at least twice using the same arm. Certain conditions can cause a difference in blood pressure between your right and left arms. Certain factors can cause blood pressure readings to be lower or higher than normal for a short period of time: When your blood pressure is higher when you are in a health care provider's office than when you are at home, this is called white coat hypertension. Most people with this condition do not need medicines. When your blood pressure is higher at home than when you are in a health care provider's office, this is called masked hypertension. Most people with this condition may need medicines to control blood pressure. If you have a high blood pressure reading during one visit or you have normal blood pressure with other risk factors, you may be asked to: Return on a different day to have your blood pressure checked again. Monitor your blood pressure at home for 1 week or longer. If you are diagnosed with hypertension, you may have other blood or imaging tests to help your health care provider understand your overall risk for other conditions. How is this treated? This condition is treated by making healthy lifestyle changes, such as eating healthy foods, exercising more, and reducing your alcohol intake. Your health care provider may prescribe medicine if lifestyle changes are not enough to get your blood pressure under control, and if: Your systolic blood pressure is above 130. Your diastolic blood pressure is above 80. Your personal target blood pressure may vary depending on your medical conditions, your age, and other factors. Follow these instructions at home: Eating and drinking Eat a diet that is high in fiber and potassium, and low in sodium, added sugar, and fat. An example eating plan is called the DASH (Dietary Approaches to Stop Hypertension) diet. To eat this way: ?Eat plenty of fresh fruits and vegetables. Try to fill one half of your plate at each meal with fruits and vegetables. ?Eat whole grains, such as whole-wheat pasta, brown rice, or whole-grain bread. Fill about one fourth of your plate with whole grains. ?Eat or drink low-fat dairy products, such as skim milk or low-fat yogurt. ?Avoid fatty cuts of meat, processed or cured meats, and poultry with skin. Fill about one fourth of your plate with lean proteins, such as fish, chicken without skin, beans, eggs, or tofu. ?Avoid pre-made and processed foods. These tend to be higher in sodium, added sugar, and fat. Reduce your daily sodium intake. Most people with hypertension should eat less than 1,500 mg of sodium a day. Do not drink alcohol if: ?Your health care provider tells you not to drink. ?You are , may be , or are planning to become . If you drink alcohol: ?Limit how much you use to: ?0 1 drink a day for women. ?0 2 drinks a day for men. ?Be aware of how much alcohol is in your drink. In the [place] one drink equals one 12 oz bottle of beer (355 mL), one 5 oz glass of wine (148 mL), or one 1 oz glass of hard liquor (44 mL). Lifestyle Work with your health care provider to maintain a healthy body weight or to lose weight. Ask what an ideal weight is for you. Get at least 30 minutes of exercise most days of the week. Activities may include walking, swimming, or biking. Include exercise to strengthen your muscles (resistance exercise), such as Pilates or lifting weights, as part of your weekly exercise routine. Try to do these types of exercises for 30 minutes at least 3 days a week. Do not use any products that contain nicotine or tobacco, such as cigarettes, e-cigarettes, and chewing tobacco. If you need help quitting, ask your health care provider. Monitor your blood pressure at home as told by your health care provider. Keep all follow-up visits as told by your health care provider. This is important. Medicines Take awze-fql-lhtxyih and prescription medicines only as told by your health care provider. Follow directions carefully. Blood pressure medicines must be taken as prescribed. Do not skip doses of blood pressure medicine. Doing this puts you at risk for problems and can make the medicine less effective. Ask your health care provider about side effects or reactions to medicines that you should watch for. Contact a health care provider if you: Think you are having a reaction to a medicine you are taking. Have headaches that keep coming back (recurring). Feel dizzy. Have swelling in your ankles. Have trouble with your vision. Get help right away if you: Develop a severe headache or confusion. Have unusual weakness or numbness. Feel faint. Have severe pain in your chest or abdomen. Vomit repeatedly. Have trouble breathing. Summary Hypertension is when the force of blood pumping through your arteries is too strong. If this condition is not controlled, it may put you at risk for serious complications. Your personal target blood pressure may vary depending on your medical conditions, your age, and other factors. For most people, a normal blood pressure is less than 120/80. Hypertension is treated with lifestyle changes, medicines, or a combination of both. Lifestyle changes include losing weight, eating a healthy, low-sodium diet, exercising more, and limiting alcohol. This information is not intended to replace advice given to you by your health care provider. Make sure you discuss any questions you have with your health care provider. Document Released: 09/10/2006 Document Revised: 05/21/2019 Document Reviewed: 05/21/2019 [employer] Patient Education 2020 [employer] 04/20/2022 08:29:38 Heart Disease Prevention Heart Disease Prevention Heart disease is the leading cause of in the world. Coronary artery disease is the most common cause of heart disease. This condition results when cholesterol and other substances (plaque) build up inside the pearson of the blood vessels that supply your heart muscle (arteries). This buildup in arteries is called atherosclerosis. You can take actions to lower your risk of heart disease. How can heart disease affect me? Heart disease can cause many unpleasant symptoms and complications, such as: Chest pain (angina). Reduced or blocked blood flow to your heart. This can cause: ?Irregular heartbeats (arrhythmias). ?Heart attack. ?Heart failure. What can increase my risk? The following factors may make you more likely to develop this condition: High blood pressure (hypertension). High cholesterol. Smoking. A diet high in saturated fats or trans fats. Lack of physical activity. Obesity. Drinking too much alcohol. Diabetes. Having a family history of heart disease. What actions can I take to prevent heart disease? Nutrition Eat a heart-healthy eating plan as told by your health care provider. Examples include the DASH (Dietary Approaches to Stop Hypertension) eating plan or the Mediterranean diet. Generally, it is recommended that you: ?Eat less salt (sodium). Ask your health care provider how much sodium is safe for you. Most people should have less than 2,300 mg each day. ?Limit unhealthy fats, such as saturated and trans fats, in your diet. You can do this by eating low-fat dairy products, eating less red meat, and avoiding processed foods. ?Eat healthy fats (omega-3 fatty acids). These are found in fish, such as mackerel or salmon. ?Eat more fruits and vegetables. You should try to fill one-half of your plate with fruits and vegetables at each meal. ?Eat more whole grains. ?Avoid foods and drinks that have added sugars. Lifestyle Get regular exercise. This is one of the most important things you can do for your health. Generally, it is recommended that you: ?Exercise for at least 30 minutes on most days of the week (150 minutes each week). The exercise should increase your heart rate and make you sweat (aerobic exercise). ?Add strength exercises on at least 2 days each week. Do not use any products that contain nicotine or tobacco, such as cigarettes and e-cigarettes. These can damage your heart and blood vessels. If you need help quitting, ask your health care provider. Alcohol use Do not drink alcohol if: ?Your health care provider tells you not to drink. ?You are , may be , or are planning to become . If you drink alcohol, limit how much you have: ?0 1 drink a day for women. ?0 2 drinks a day for men. Be aware of how much alcohol is in your drink. In the [place] one drink equals one typical bottle of beer (12 oz), one-half glass of wine (5 oz), or one shot of hard liquor (1 oz). Medicines Take xmim-dip-dufhoch and prescription medicines only as told by your health care provider. Ask your health care provider whether you should take an aspirin every day. Taking aspirin may help reduce your risk of heart disease and stroke. Depending on your risk factors, your health care provider may prescribe medicines to lower your risk of heart disease or to control related conditions. You may take medicine to: ?Lower cholesterol. ?Control blood pressure. ?Control diabetes. General information Keep your blood pressure under control, as recommended by your health care provider. For most healthy people, the upper number of your blood pressure (systolic) should be no higher than 120, and the lower number (diastolic) no higher than 80. Treatment may be needed if your blood pressure is higher than 130/80. Have your blood pressure checked at least every two years. Your health care provider may check your blood pressure more often if you have high blood pressure. After age 20, have your cholesterol checked every 4 6 years. If you have risk factors for heart disease, you may need to have it checked more frequently. Treatment may be needed if your cholesterol is high. Have your body mass index (BMI) checked every year. Your health care provider can calculate your BMI from your height and weight. Work with your health care provider to lose weight, if needed, or to maintain a healthy weight. Where to find more information: Centers for Disease Control and Prevention: www.cdc.gov/heartdisease [place] [employer]: www.heart.org ?Take a free online heart disease risk quiz to better understand your personal risk factors. Summary Heart disease is the leading cause of in the world. Heart disease can cause chest pain, abnormal heart rhythms, heart attack, and heart failure. High blood pressure, high cholesterol, and smoking are the main risk factors for heart disease, although other factors also contribute. You can take actions to lower your chances of developing heart disease. Work with your health care provider to reduce your risk by following a heart-healthy diet, being physically active, and controlling your weight, blood pressure, and cholesterol level. This information is not intended to replace advice given to you by your health care provider. Make sure you discuss any questions you have with your health care provider. Document Released: 04/24/2005 Document Revised: 09/25/2018 Document Reviewed: 09/25/2018 [employer] Patient Education 2020 [employer] 04/20/2022 08:29:37 Exercising to Lose Weight Exercising to Lose Weight Exercise is structured, repetitive physical activity to improve fitness and health. Getting regular exercise is important for everyone. It is especially important if you are overweight. Being overweight increases your risk of heart disease, stroke, diabetes, high blood pressure, and several types of cancer. Reducing your calorie intake and exercising can help you lose weight. Exercise is usually categorized as moderate or vigorous intensity. To lose weight, most people need to do a certain amount of moderate-intensity or vigorous-intensity exercise each week. Moderate-intensity exercise Moderate-intensity exercise is any activity that gets you moving enough to burn at least three times more energy (calories) than if you were sitting. Examples of moderate exercise include: Walking a mile in 15 minutes. Doing light yard work. Biking at an easy pace. Most people should get at least 150 minutes (2 hours and 30 minutes) a week of moderate-intensity exercise to maintain their body weight. Vigorous-intensity exercise Vigorous-intensity exercise is any activity that gets you moving enough to burn at least six times more calories than if you were sitting. When you exercise at this intensity, you should be working hard enough that you are not able to carry on a conversation. Examples of vigorous exercise include: Running. Playing a team sport, such as football, basketball, and soccer. Jumping rope. Most people should get at least 75 minutes (1 hour and 15 minutes) a week of vigorous-intensity exercise to maintain their body weight. How can exercise affect me? When you exercise enough to burn more calories than you eat, you lose weight. Exercise also reduces body fat and builds muscle. The more muscle you have, the more calories you burn. Exercise also: Improves mood. Reduces stress and tension. Improves your overall fitness, flexibility, and endurance. Increases bone strength. The amount of exercise you need to lose weight depends on: Your age. The type of exercise. Any health conditions you have. Your overall physical ability. Talk to your health care provider about how much exercise you need and what types of activities are safe for you. What actions can I take to lose weight? Nutrition Make changes to your diet as told by your health care provider or diet and nutrition educator (dietitian). This may include: ?Eating fewer calories. ?Eating more protein. ?Eating less unhealthy fats. ?Eating a diet that includes fresh fruits and vegetables, whole grains, low-fat dairy products, and lean protein. ?Avoiding foods with added fat, salt, and sugar. Drink plenty of water while you exercise to prevent dehydration or heat stroke. Activity Choose an activity that you enjoy and set realistic goals. Your health care provider can help you make an exercise plan that works for you. Exercise at a moderate or vigorous intensity most days of the week. ?The intensity of exercise may vary from person to person. You can tell how intense a workout is for you by paying attention to your breathing and heartbeat. Most people will notice their breathing and heartbeat get faster with more intense exercise. Do resistance training twice each week, such as: ?Push-ups. ?Sit-ups. ?Lifting weights. ?Using resistance bands. Getting short amounts of exercise can be just as helpful as long structured periods of exercise. If you have trouble finding time to exercise, try to include exercise in your daily routine. ?Get up, stretch, and walk around every 30 minutes throughout the day. ?Go for a walk during your lunch break. ?Park your car farther away from your destination. ?If you take public transportation, get off one stop early and walk the rest of the way. ?Make phone calls while standing up and walking around. ?Take the stairs instead of elevators or escalators. Wear comfortable clothes and shoes with good support. Do not exercise so much that you hurt yourself, feel dizzy, or get very short of breath. Where to find more information [place] Department of Health and Human Services: www.hhs.gov Centers for Disease Control and Prevention (CDC): www.cdc.gov Contact a health care provider: Before starting a new exercise program. If you have questions or concerns about your weight. If you have a medical problem that keeps you from exercising. Get help right away if you have any of the following while exercising: Injury. Dizziness. Difficulty breathing or shortness of breath that does not go away when you stop exercising. Chest pain. Rapid heartbeat. Summary Being overweight increases your risk of heart disease, stroke, diabetes, high blood pressure, and several types of cancer. Losing weight happens when you burn more calories than you eat. Reducing the amount of calories you eat in addition to getting regular moderate or vigorous exercise each week helps you lose weight. This information is not intended to replace advice given to you by your health care provider. Make sure you discuss any questions you have with your health care provider. Document Released: 10/13/2011 Document Revised: 09/23/2018 Document Reviewed: 09/23/2018 [employer] Patient Education 2020 [employer] 04/20/2022 08:29:36 BMI for Adults BMI for Adults Body mass index (BMI) is a number that is calculated from a person's weight and height. BMI may help to estimate how much of a person's weight is composed of fat. BMI can help identify those who may be at higher risk for certain medical problems. How is BMI used with adults? BMI is used as a screening tool to identify possible weight problems. It is used to check whether a person is obese, overweight, healthy weight, or underweight. How is BMI calculated? BMI measures your weight and compares it to your height. This can be done either in [place] ([place] or metric measurements. Note that charts are available to help you find your BMI quickly and easily without having to do these calculations yourself. To calculate your BMI in [place] ([place] measurements, your health care provider will: 1.Measure your weight in pounds (lb). 2.Multiply the number of pounds by 703. For example, for a person who weighs 180 lb, multiply that number by 703, which equals 126,540. 3.Measure your height in inches (in). Then multiply that number by itself to get a measurement called inches squared. For example, for a person who is 70 in tall, the inches squared measurement is 70 in x 70 in, which equals 4900 inches squared. 4.Divide the total from Step 2 (number of lb x 703) by the total from Step 3 (inches squared): 126,540 4900 = 25.8. This is your BMI. To calculate your BMI in metric measurements, your health care provider will: 1.Measure your weight in kilograms (kg). 2.Measure your height in meters (m). Then multiply that number by itself to get a measurement called meters squared. For example, for a person who is 1.75 m tall, the meters squared measurement is 1.75 m x 1.75 m, which is equal to 3.1 meters squared. 3.Divide the number of kilograms (your weight) by the meters squared number. In this example: 70 3.1 = 22.6. This is your BMI. How is BMI interpreted? To interpret your results, your health care provider will use BMI charts to identify whether you are underweight, normal weight, overweight, or obese. The following guidelines will be used: Underweight: BMI less than 18.5. Normal weight: BMI between 18.5 and 24.9. Overweight: BMI between 25 and 29.9. Obese: BMI of 30 and above. Please note: Weight includes both fat and muscle, so someone with a muscular build, such as an athlete, may have a BMI that is higher than 24.9. In cases like these, BMI is not an accurate measure of body fat. To determine if excess body fat is the cause of a BMI of 25 or higher, further assessments may need to be done by a health care provider. BMI is usually interpreted in the same way for men and women. Why is BMI a useful tool? BMI is useful in two ways: Identifying a weight problem that may be related to a medical condition, or that may increase the risk for medical problems. Promoting lifestyle and diet changes in order to reach a healthy weight. Summary Body mass index (BMI) is a number that is calculated from a person's weight and height. BMI may help to estimate how much of a person's weight is composed of fat. BMI can help identify those who may be at higher risk for certain medical problems. BMI can be measured using Finnish measurements or metric measurements. To interpret your results, your health care provider will use BMI charts to identify whether you are underweight, normal weight, overweight, or obese. This information is not intended to replace advice given to you by your health care provider. Make sure you discuss any questions you have with your health care provider. Document Released: 05/22/2005 Document Revised: 08/23/2018 Document Reviewed: 07/24/2018 [employer] Patient Education [email or web address] [facility] Evaluation + Plan note Future Appointments Appointment Date:04/20/2022 08:00:00 AM Scheduled Provider: Location[facility]:04/20/[facility]22 09:00:00 AM Scheduled Provider:Betina Sampson MD Location:[facility] Appointment Type: [facility] Evaluation + Plan note Future Appointments Appointment Date:07/20/2022 09:20:00 AM Scheduled Provider:Betina Sampson MD Location:[facility] Appointment Type: Open Appointment Date:04/30/2023 08:00:00 AM Scheduled Provider: Location:[facility] Appointment Type: Medicare Wellness Subsequent [facility] Evaluation + Plan note Future Appointments Appointment Date:11/13/2022 09:00:00 AM Scheduled Provider:Betina Sampson MD Location:[facility] Appointment Type: Open Appointment Date:04/30/2023 08:00:00 AM Scheduled Provider: [facility] App[facility] Type: Medicare Wellness [facility] Evaluation + Plan note Future Appointments Appointment Date:04/30/2023 08:00:00 AM Scheduled Provider: Location:[facility] Appointment Type: Medicare Wellness Subsequent Appointment Date:05/14/2023 07:00:00 AM Scheduled Provider:Betina Sampson MD Location:[facility] [place] Appointment Type:FM Open [facility] Medicine [facility] course Narrative No data available for this section [facility] Discharge instructions No data available for this section [facility] Progress note No data available for this section [facility] Summary Purpose Family History No Family History Records FoundNo Family History Records FoundNo Family History Records FoundNo Family History Records Found Advance Directives No Advanced Directives Records FoundNo Advanced Directives Records FoundNo Advanced Directives Records FoundNo Advanced Directives Records Found Additional Source Comments (unrecognized sect ion and content) No Status Records FoundNo Status Records FoundNo Status Records FoundNo Status Records Found INFORMATION SOURCE (unrecogn ized section and content) DATE CREATED AUTHOR 09/02/2018 [facility] DATE CREATED AUTHOR AUTHOR'S ORGANIZ ATION 10/04/[address] [facility] DATE CREATED AUTHOR AUTHOR'S ORGANIZ ATION 08/09/2023 [facility] DATE CREATED AUTHOR AUTHOR'S ORGANIZ ATION 09/26/2023 [facility] Care Team (unrecognized sect ion and content) Personnel Name: Betina Sampson MD Address: [address] [place] [address] Personnel Name: Betina Sampson MD Address: [address] [place] [address] Personnel Name: Betina Sampson MD Address: Address: [address] [place] [address] Personnel Name: Betina Sampson MD Address: Address: [address] [place] [address] Personnel Name: Betina Sampson MD Address: Address: [address] [place] [address] FOR RECORDS PERTAINING TO PATIENTS WHO ARE OR HAVE BEEN ENROLLED IN A CHEMICAL DEPENDENCY/SUBSTANCEABUSE PROGRAM, SOME INFORMATION MAY BE OMITTED. This clinical summary was aggregated from multiple sources. Caution should be exercised in using it in the provision of clinical care. This summary normalizes information from multiple sources, and as a consequence, information in this document may materially change the coding, format and clinical context of patient data. In addition, data may be omitted in some cases. CLINICAL DECISIONS SHOULD BE BASED ON THE PRIMARY CLINICAL RECORDS. [facility] [email or web address] [facility]. provides no warranty or guarantee of the accuracy or completeness of information in this document.
[2023-11-17] MEDS: 0.9 % SODIUM CHLORIDE 1,000 ML 999 ML IV (12:21)
[2023-11-17 12:50] LABS: Basophils Percent Auto 0.3 % (0.2-2.0); Eosinophils Percent Auto 0.1 % (0.9-7.0); Hematocrit 44.3 % (42.0-54.0); Hemoglobin 15.2 g/dL (14.0-18.0); Immature Granulocytes Abs Auto 0.03 10^3/uL (0.00-0.03); Immature Granulocytes Pct Auto 0.3 % (0.0-0.5); Lymphocytes Absolute Auto 0.6 10^3/uL (1.2-3.8); Lymphocytes Percent Auto 6.5 % (20.5-60.0); Mean Corpuscular HGB Conc 34.3 g/dL (29.9-35.2); Mean Corpuscular Hemoglobin 31.4 pg (25.9-34.0); Mean Corpuscular Volume 91.5 fL (80.0-94.0); Mean Platelet Volume 10.1 fL (9.5-13.5); Monocytes Absolute Auto 0.8 10^3/uL (0.3-0.8); Monocytes Percent Auto 9.1 % (1.7-12.0); Neutrophils Absolute Auto 7.7 10^3/uL (1.4-6.5); Neutrophils Percent Auto 83.7 % (43.0-75.0); Platelet Count 155 10^3/uL (150-450); Red Blood Count 4.84 10^6/uL (4.70-6.10); Red Cell Distribution Width 12.8 % (11.0-15.0); White Blood Count 9.2 10^3/uL (4.0-11.0)
[2023-11-17 13:03] LABS: Lactate/Lactic Acid 1.1 mmol/L (0.4-2.0)
[2023-11-17 13:10] LABS: Anion Gap 14.3; BUN Creatinine Ratio 19.7; Carbon Dioxide 25.8 mmol/L (21.0-32.0); Chloride 104 mmol/L (98-107); Estimated GFR (African America >60 (>=60); Estimated GFR (Non-African Ame 50 (>=60); Glucose 114 mg/dL (74-106); Potassium 4.1 mmol/L (3.5-5.1); Sodium 140 mmol/L (136-145)
[2023-11-17 13:11] LABS: Alanine Aminotransferase 34 U/L (16-63); Alkaline Phosphatase 69 U/L (46-116); Aspartate Amino Transferase 21 U/L (15-37); Calcium 8.8 mg/dL (8.5-10.1)
[2023-11-17 13:12] LABS: Albumin Level 3.6 g/dL (3.4-5.0); Globulin 3.5 g/dL; Total Protein 7.1 g/dL (6.4-8.2); Troponin I High Sensitivity 8.2 pg/mL (4.0-76.1)
--- NOTE | 2023-11-17 15:11 | CT_ITS ---
[address] [address] Patient Name: JAMAICA CORRIGAN MRN: [id number] date: 1945 Sex: M Assigned Patient Location: ER Current Patient Location: Accession/Order Number: [id number] Exam Date: 11/17/2023 15:40 Report Date: 11/17/2023 16:18 At the request of: KARMEN BALLESTEROS Procedure: CT angio head EXAM: CT angio head TECHNIQUE: CT angiogram image of the head following intravenous contrast administration. Sagittal and coronal slab maximum intensity projection images were obtained. Dose reduction techniques were achieved by using automated exposure control and/or adjustment of mA and/or kV according to patient size and/or use of iterative reconstruction technique. HISTORY: stroke like symptoms COMPARISON: None. FINDINGS: Intracranial portions of the internal carotid arteries are patent bilaterally. The anterior cerebral arteries are widely patent bilaterally. Middle cerebral artery distributions are unremarkable and symmetric. The patient is right vertebral artery dominant. The basilar artery and posterior cerebral arteries are widely patent. Prominent residual posterior to indicating arteries bilaterally. No evidence for intracranial aneurysm. CT/CT angio head IMPRESSION: No significant intracranial stenosis or occlusion. No evidence for intracranial aneurysm. Electronically authenticated by: KASSI COLLINS Date: 11/17/2023 16:18
[2023-11-17 15:14] LABS: Bilirubin Urine NEGATIVE (NEGATIVE); Blood Urine NEGATIVE (NEGATIVE); Clarity Urine CLEAR (CLEAR); Color Urine YELLOW (YELLOW); Glucose Urine UA NEGATIVE (NEGATIVE); Ketones Urine 15 mg/dL (NEGATIVE); Leukocyte Esterase Urine NEGATIVE (NEGATIVE); Nitrite Urine NEGATIVE (NEGATIVE); Protein Urine NEGATIVE (NEG/TRACE)
[2023-11-17 15:16] LABS: Urine Microscopic Indicated NO
--- NOTE | 2023-11-17 15:19 | P.HP_ITS ---
H&P: HPI History of Present Illness Chief complaint: Weakness-dizzness Narrative: patient is a 78-year-old male with past medical history of coronary artery disease status post percutaneous stent approximately six years ago at [facility], hypertension, hyperlipidemia. 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 also is present at the time of admission exam and states that he has had carotid artery Dopplers within the last two years. She is uncertain when last echocardiogram was. Patient and agree that he was in normal state of health until today when suddenly he developed weakness of his bilateral lower extremities. He reports it was just difficult to maintain his balance and just felt like he was given a fall. He denies any dizziness or feeling of the room spinning. He denies any recent fevers chills or illnesses. He denies ever having a prior stroke before. states that she did not notice any facial droop or any issues communicating. Patient denies having any problem with his speech and just states that this is never happened to him before. 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 Patient did walk to the restroom with the nursing assistants and had more of a shuffling gait but did not appear weak with observation. He does note that his weakness has improved but he still feels unsteady when he stands. He denies any weakness in his hands or arms, he denies any numbness tingling in upper or lower extremities. He is not a smoker. Initial CT scan of the head was negative for any acute findings. Patient was admitted to the hospital for further workup of possible transient ischemic attack versus acute stroke. Review of Systems ROS Narrative ROS: a complete review of systems were reviewed with patient and are positive as below or listed in History of Chief Complaint. General: no fever, chills, night sweats Head: no headache, trauma, visual changes, nausea or vomiting Skin: no reported rashes, itching or sores Eyes: no blurriness of vision Ears: no reported hearing loss, vertigo, earache, or tinnitus Throat: no sore throat, hoarseness, swelling of neck, or tongue pain Heart: no chest pain Lungs: no shortness of breath or cough GI: no diarrhea or vomiting/nausea Urinary: no urinary urgency, frequency or pain Neuro: no numbness or tingling, weakness bilateral lower ext HEM: no bleeding issues or bruising ENDO: no thyroid problems Psych: no anxiety or depression PFSH PFSH Medical History Carpal tunnel syndrome ?G56.00 - Carpal tunnel syndrome, unspecified upper limb (ICD-10) Dyspnea on exertion ?R06.09 - Other forms of dyspnea (ICD-10) DDD (degenerative disc disease) Back pain ?M54.9 - Dorsalgia, unspecified (ICD-10) Pneumonia ?J18.9 - Pneumonia, unspecified organism (ICD-10) COVID-19 ?U07.1 - COVID-19 (ICD-10) Hearing loss ?H91.90 - Unspecified hearing loss, unspecified ear (ICD-10) Heartburn ?R12 - Heartburn (ICD-10) Coronary artery disease ?I25.10 - Atherosclerotic heart disease of [place] coronary artery without angina pectoris (ICD-10) High cholesterol ?E78.00 - Pure hypercholesterolemia, unspecified (ICD-10) Clavicle fracture ?S42.009A - Fracture of unspecified part of unspecified clavicle, initial encounter for closed fracture (ICD-10) Surgical History History of carpal tunnel release ?Z98.890 - Other specified postprocedural states (ICD-10) History of colonoscopy ?Z98.890 - Other specified postprocedural states (ICD-10) S/P ureteral stent placement (04/07/23) ?Z96.0 - Presence of urogenital implants (ICD-10) Stented coronary artery (~03/2019) ?Z95.5 - Presence of coronary angioplasty implant and graft (ICD-10) Family History Other Family history of renal failure Social History Within the past year, how often did you have a drink containing alcohol: never Within the past year, how often did you have six or more drinks on one occasion: never Score interpretation: A score less than 4 is consistent with normal alcohol consumption. 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 Known occupational exposures/hazards: No Highest level of school completed/degree received: high school graduate Do you want help with school or training: No Are you now , , , , never or living with a partner: In a typical week, how many times do you talk on the telephone with family, friends, or neighbors: 3 or more times per week How often do you get together with friends or relatives: 3 or more times per week How often do you attend roman catholic or advent services: never Do you belong to any clubs or organizations such as roman catholic groups unions, [employer] or athletic groups, or school groups: no Total score: 2 Score interpretation: A score of greater than or equal to 2 indicates the lowest level of social isolation. Little interest or pleasure in doing things: not at all Feeling down, depressed, or hopeless: not at all Feel stressed/tense/nervous/anxious/difficulty sleeping: not at all Due to disability, difficulty making decisions: No Do you think of yourself as: straight/heterosexual Gender Identity: male Meds Home Medications and Allergies Home Medications Medication Instructions Recorded Confirmed Type metoprolol tartrate 25 mg tablet 25 mg PO DAILY 04/07/23 11/17/23 History simvastatin 20 mg tablet 20 mg PO DAILY 04/07/23 11/17/23 History aspirin 81 mg tablet,delayed 81 mg PO DAILY 04/17/23 11/17/23 History release (Adult Aspirin Regimen) Allergies Allergy/AdvReac Type Severity Reaction Status Date / Time No Known Drug Allergies Allergy Verified 11/17/23 12:06 Exam Narrative Exam Narrative: General: Patient is alert, and oriented to person, place and time with normal affect, proper hygiene, right clavicular deformity Skin: no visible rashes, or ulcers, some facial flushing noted Head: atraumatic, acephalic Eyes: PERRLA, no nystagmus present, conjunctiva clear, no scleral icterus Ears: diminished gross auditory acuity Nose: symmetric, no discharge, no maxillary or frontal sinus tenderness Mouth/Throat: no erythema, exudate, or tonsillar enlargement, normal dentition Neck: no masses palpated, normal thyroid, no JVD or audible carotid bruits Heart: Normal rate and rhythm, no murmurs/rubs/gallops Lungs: no audible wheezes, crackles and normal breath sounds all lung neumann Abdomen: Normal audible bowel sounds, no distension, No palpable masses, no organomegaly, no rebound/guarding/ or rigidity Musculoskeletal: no swelling bilateral lower extremities Lymph: no supraclavicular, axillary, or anterior/posterior cervical adenopathy Neuro: CN II-X grossly intact, normal sensation upper and lower extremities, normal strength in left and right upper and lower extremities. follows commands, speech is appropriate Constitutional Vital Signs, click to edit/add: Last Vital Signs Temp 99.1 F 11/17/23 12:01 Pulse 79 11/17/23 15:10 Resp 19 11/17/23 15:10 BP 162/85 H 11/17/23 14:45 Pulse Ox 95 11/17/23 14:50 O2 Del Method Room Air 11/17/23 12:11 Results Labs Labs: Short CBC 11/17/23 Range/Units 12:13 WBC 9.2 (4.0-11.0) 10^3/uL Hgb 15.2 (14.0-18.0) g/dL Hct 44.3 (42.0-54.0) % Plt Count 155 (150-450) 10^3/uL BMP 11/17/23 12:13 Sodium 140 Potassium 4.1 Chloride 104 Carbon Dioxide 25.8 BUN 27.0 H Creatinine 1.37 H Glucose 114 H Calcium 8.8 Liver Function 11/17/23 Range/Units 12:13 Total Bilirubin 1.0 (0.2-1.0) mg/dL AST 21 (15-37) U/L ALT 34 (16-63) U/L Alkaline Phosphatase 69 (46-116) U/L Albumin 3.6 (3.4-5.0) g/dL Urine 11/17/23 Range/Units 14:45 Urine Color Yellow (YELLOW) Urine Clarity Clear (CLEAR) Urine pH 7.0 (5.0-9.0) Ur Specific [place] 1.020 (1.005-1.025) Urine Protein Negative (NEG/TRACE) mg/dL Urine Glucose (UA) Negative (NEGATIVE) mg/dL Imaging CT scan - head: Attestation: I have reviewed the pertinent imaging results. Assessment and Plan Assessment and Plan (1) TIA (transient ischemic attack): Assessment and Plan: initial CT findings showed no acute findings. CTA also showed no acute findings. Patient was admitted for observation, and we'll get a MRI of the brain tomorrow. Echocardiogram unfortunately cannot be performed on the weekends. Patient is also placed on telemetry, with fall precautions. Will check lipids, hemoglobin A1c, CBC and CMP in the morning along with thyroid studies. Given Lipitor 80 mg ?1, Plavix 75 mg daily and continue on the baby aspirin. (2) Hypertension: Assessment and Plan: continue to monitor blood pressures that have been stable continue lisinopril, metoprolol, isosorbide.. Qualifiers: Hypertension type: primary hypertension Qualified Code(s): I10 - Essential (primary) hypertension (3) Coronary artery disease: Assessment and Plan: status post stent ?1, recheck lipid panel in the morning may need to adjust statin Qualifiers: Coronary Disease-Associated Artery/Lesion type: [place] artery [place] vs. transplanted heart: [place] heart Associated angina: without angina Qualified Code(s): I25.10 - Atherosclerotic heart disease of [place] coronary artery without angina pectoris Plan patient is a full code observation status, MRI in the morning and hopeful discharge tomorrow. If findings consistent with acute stroke will need higher level transfer to [facility]
--- OUTSIDE RECORDS SUMMARY | 2023-11-17 16:25 | XMS_ITS | CCD ---
Author Name Unknown Address [address] [place] [address] Organization [facility] Care Team Providers Care Carcass Splitter Name Role Phone PHYSICIAN, DEFAULT Unavailable Unavailable [...] Medication Allergies] Propensity to adverse reactions (disorder) [facility] Repository Medications Current Medications Medication Drug Class(es) [...] for 90 day(s), 90 EA, Refill(s) 1, [facility], 172, cm, 01/17/22 9:53:00 EDT, [...] day(s), # 90 tab(s), Refills(s) 0, Pharmacy: [facility], 172, cm, 01/17/22 9:53:00 EDT, [...] day(s), # 90 tab(s), Refills(s) 0, Pharmacy: [facility], 172, cm, 01/17/22 9:53:00 EDT, [...] disease (17 sources) Atherosclerotic heart disease of [place] coronary artery without angina pectoris; Translations: [Coronary [...] Documented Date Episodic/Chronic Other aftercare (1 source) detention (current) use of aspirin; Translations: [CORRECTION (CURRENT) USE OF ASPIRIN] Onset: 12-14-2017 Episodic [...] Results Test Name Value Interpretation Reference Range [facility] ED Note-Physicianon 09-25-19 ED Note-Physician [id number]#1.00TIFF [facility] RAD - MISCon 09-25-2023 RAD - MISC [id number]#1.00TIFF [facility] Office Visiton 08-08-2023 Follow-up visit [id number] Ricardo Corrigan 1945 M Date Provider Department Center 08/08/2023 ANTONIO SALMERON CARD [facility] No family history on file Level of Service:46100 SC OFFICE/OUTPATIENT ESTABLISHED MOD MDM 30-39 MIN Reason for Visit and Comments: Follow-up [799283] Normal [facility] Family Medicine Office/Clini c Noteon 07-06-2023 Family [...] of clutter to prevent tripping and/or falling. [place] Advance Directives reviewed, patient has copy at [...] this time. Will have labs completed with [facility]. [facility], can [...] mass index (more content not included)... Normal [facility] Comment on above: Result Comment: Elec tronically [...] DELONG, Zachary Meléndez Where: [facility] Normal [address] [place] [address]- \.br\ Medications\.br \ What How Much When [...] chronic kidney disease\.br\ Bradycardia\.br \ CAD in [place] artery\.br\ Chronic kidney disease, stage 3a\.br\ Closed [...] instructions at home:\.br\ Medicines\.br\ ? \.br\ Take wmnq-ncw-xlyjol r and prescription medicines only as told [...] of hard liquor (44 mL).\.br\ ? \.br\ [facility] Patient Educationon 07-05-20 23 Patient Education Caregiving [...] night-lights. ? Place frequently used items in ytks-ks-beqbj places. Lower the shelves around your home [...] the way. ? Do not use floor faroese or wax that makes floors slippery. If [...] include working with a physical therapist or safety trainer to improve your strength, balance, and endurance. Where to find more information ? Centers for Disease Control and Prevention, [place]: www.cdc.gov ? National [place] on Aging: www.kai.nih.gov Contact a health care [...] your health ca (more content not included)... [facility] Screenson 07-05-2023 Screens [id number]#1.00TIFF [facility] Ambulatory Visit Summaryon 0 06-11-2023 Ambulatory Visit [...] Appointments Sunday. 2023 10:15 AM EDT With: PPAA DELONG, Zachary Meléndez Where: [facility] Family Medicine Office/Clini c Noteon 06-11-2023 Family [...] E&M of Est. Patient Low 20-29 Min 07848 Remove impacted ear wax- 47787 2. BMI 30.0-30.9,adult (Z68.30: Body mass index [BMI] 30.0-30.9, adult) - BMI education given Ordered: E&M of Est. Patient Low 20-29 Min 36995 Remove impacted ear wax- 52373 3. Class 1 obesity due to excess calories in adult (E66.09: Other obesity due to excess calories) - As above Ordered: E&M of Est. Patient Low 20-29 Min 80962 Remove impacted ear wax- 89012 Follow-up No qualifying data available 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 Bradycardia CAD in [place] artery Chronic kidney disease, stage 3a Closed [...] SARS-CoV-2 (COVID-19) Ad26 vaccine 11/30/2020 Recorded Normal [facility] Comment on above: Result Comment: Elec tronically Signed By: Oz DELONG, Betina Walker.br\Date and Time Signed: 06/11/23 12:15 EDT Patient Correspondenceon Patient Correspondence [id number]#1.00CD:127 Normal [facility] RAD - MISCon 06-06-2023 RAD - MIS [id number]#1.00CD:127 [facility] Lab Reportson 06-05-2023 Lab Reports [id number]#1.00CD:127 [facility] RAD - MISCon 05-28-2023 RAD - MISC [id number]#1.00CD:127 [facility] Operative Reporton 08-31-202 3 Operative Report [id number]#1.00CD:127 Normal [facility] Consent for Procedure/Surger yon 05-22-2023 Consent for Procedure/Surgery [id number]#1.00CD:127 [facility] Consent for Procedure/Surgery [id number]#1.00CD:127 [facility] Operative Reporton 3 Operative Report [id number]#1.00CD:127 [facility] Ambulatory Visit Summaryon 0 05-14-2023 Ambulatory Visit Summary RICARDO CORRIGAN :1945 Visit Date:05/14/2023 Ambulatory Visit Instructions Your Diagnosis Renal stone Hard of hearing Primary hypertension Chronic kidney disease, stage 3a Bradycardia CAD in [place] artery BMI 30.0-30.9,adult Class 2 obesity due [...] 3a chronic kidney disease Bradycardia CAD in [place] artery Chronic kidney disease, stage 3a Closed displaced fracture of shaft of right clavicle Dyspnea on exertion Hard of hearing HLD (hyperlipidemia) Hx of cardiac catheterization Mild diastolic dysfunction Mild persistent asthma without complication Primary hypertension Renal stone Vitamin D deficiency Normal [facility] Family Medicine Office/Clini c Noteon 05-14-2023 Family [...] Hg (Most Recent) 3074F 6. CAD in [place] artery (I25.10: Atherosclerotic heart disease of [place] coronary artery without angina pectoris) - Denies [...] 3a chronic kidney disease Bradycardia CAD in [place] artery Chronic kidney disease, stage 3a Closed displaced fracture of shaft of right clavicle Dyspnea on exertion Hard of hearing HLD (hyperlipidemia) Hx of cardiac catheterization Mild diastolic dysfunction Mild persistent asthma without complication Primary hypertension Renal stone Vitamin D deficiency Historical No qualifying data Procedure/Surgical History Placement of stent in cardiac conduit (12/11 (more content not included)... Normal [facility] Comment on above: Result Comment: Elec tronically Signed By: zO DELONG, Betina Walker.br\Date and Time Signed: 05/14/23 07:10 EDT RAD - MISCon 05-12-2023 [facility] [id number]#1.00CD:127 Normal [facility] RAD - MISCon 05-10-2023 [facility] [id number]#1.00CD:127 Normal [facility] 05-07-20 [facility][Note 3] Case Information Case Priority: None Programs: -- Referral Source: Quality Officer Referral Reason: Care coordination Case Type: Transition Care Management Risk Score: -- Case Status: Enrolled (April 16, 2023) Date Assigned: April 16, 2023 Assigned By: Komal Walker RN Date Enrolled: April 16, 2023 Assigned Primary Personnel: Komal Walker RN Assigned Secondary Personnel: -- Case Physician: Betina Sampson MD Ongoing 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 Bradycardia CAD in [place] artery Chronic kidney disease, stage 3a Closed [...] (min): 2 Outcome: Case discussion Contact Type: claims coordinator Contact Name: Komal Walker RN Notes: Called patient for final TCM #4 as patient has an appointment with Dr. Sampson on 05/14/23, see FT summary note. Created By: Komal Walker RN Date: April 30, 2023 Method: Phone call Type: Outbound Duration (min): 3 Outcome: Case discussion Contact Type: claims coordinator Contact Name: Komal Walker RN Notes: TCM #3, see Ft summary note. Created By: Komal Walker RN Date: April 20, 2023 Method: Phone call Type: Outbound Duration (min): 6 Outcome: Case discussion Contact Type: claims coordinator Contact Name: Komal Walker RN Notes: TCM #2, see message center note. Created By: Komal Walker RN Date: April 16, 2023 Method: Phone call Type: Outbound Duration (min): 5 Outcome: Case discussion Contact Type: claims coordinator Contact Name: Komal Walker RN Notes: TCM #1, see FT summary note. Created By: Komal Walker RN [facility] [id number]#1.00CD:127 [facility] 04-30-20 Population Health Case Information Case Priority: None Programs: -- Referral Source: Quality Officer Referral Reason: Care coordination Case Type: Transition Care Management Risk Score: -- Case Status: Enrolled (April 16, 2023) Date Assigned: April 16, 2023 Assigned By: Komal Walker RN Date Enrolled: April 16, 2023 Assigned Primary Personnel: Komal Walker RN Assigned Secondary Personnel: -- Case Physician: Betina Sampson MD Problems Ongoing 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 Bradycardia CAD in [place] artery Chronic kidney disease, stage 3a Closed [...] (min): 3 Outcome: Case discussion Contact Type: claims coordinator Contact Name: Komal Walker RN Notes: TCM #3, see Ft summary note. Created By: Komal Walker RN Date: April 20, 2023 Method: Phone call Type: Outbound Duration (min): 6 Outcome: Case discussion Contact Type: claims coordinator Contact Name: Komal Walker RN Notes: PAT #2, see message center note. Created By: Komal Walker RN Date: April 16, 2023 Method: Phone call Type: Outbound Duration (min): 5 Outcome: Case discussion Contact Type: claims coordinator Contact Name: Komal Walker RN Notes: TCM #1, see FT summary note. Created By: Komal Walker RN [facility] Family Medicine Office/Clini c Noteon 04-24-2023 Family Medicine Office/Clinic Note Chief Complaint hospital follow up HPI Staff Patient presents for [facility] hospital follow up Admitted: 04/07/23 Discharged: [...] with voice recognition artificial intelligence software, specifically [employer] and or [employer]. Substitutions may have occurred due to the inherent limitations of voice recognition and artificial intelligence software. Documentation services were performed after patient or guardian consented to allow [employer] to record this visit. RICKIE retail customer service specialist and provider reviewed before signing. RICKIE: Honey [employer] Follow-up No qualifying data available 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 Bradycardia CAD in [place] artery Chronic kidney disease, stage 3a Closed [...] influenza viru (more content not included)... Normal [facility] Comment on above: Result Comment: Elec tronically [...] Appointments Sunday 8:00 AM EDT With: Where: [facility] Normal [address] [place] [address]- \.br\ Medications\.br \ What How Much When [...] chronic kidney disease\.br\ Bradycardia\.br \ CAD in [place] artery\.br\ Chronic kidney disease, stage 3a\.br\ Closed displaced fracture of shaft of right clavicle\.br\ Dyspnea on exertion\.br\ HLD (hyperlipidemia )\.br\ Hx of cardiac catheterization \.br\ Mild diastolic dysfunction\.br \ Mild persistent asthma without complication\.b r\ Primary hypertension\.b r\ Renal stone\.br\ Vitamin D deficiency\.br\ \.br\ [facility] RAD - MISCon 04-23-2023 RAD - [facility] [id number]#1.00CD:127 Normal [facility] [id number]#1.00CD:127 Normal [facility] [id number]#1.00CD:127 [facility] Consent for Procedure/Surger yon 04-19-2023 Consent for Procedure/Surgery [id number]#1.00CD:127 Normal [facility] ECG 12-Leadon 04-18-2023 ECG 12-Lead [id number]#1.00CD:127 Normal [facility] Lab Reportson 04-18-2023 Lab Reports [id number]#1.00CD:127 Normal [facility] RAD - MISCon 04-18-2023 RAD - MIS [id number]#1.00CD:127 Normal [facility] RAD - MISCon 04-17-2023 RAD - MIS [id number]#1.00CD:127 Normal [facility] Population Healthon 04-16-20 Population Health Case Information Case Priority: None Programs: -- Referral Source: Quality Officer Referral Reason: Care coordination Case Type: Transition Care Management Risk Score: -- Case Status: Enrolled (April 16, 2023) Date Assigned: April 16, 2023 Assigned By: Komal Walker RN Date Enrolled: April 16, 2023 Assigned Primary Personnel: Komal Walker RN Assigned Secondary Personnel: -- Case Physician: Betina Sampson MD Ongoing 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 Bradycardia CAD in [place] artery Chronic kidney disease, stage 3a Closed [...] Care Plan Progress Note Admit Date: 04/07/23 [facility] Date of Discharge: 04/13/23 [...] 04/19/23 for stent and stone removal at [facility]. Reviewed discharge instructions and [...] (min): 5 Outcome: Case discussion Contact Type: claims coordinator Contact Name: Komal Walker RN Notes: TCM #1, see FT summary note. Created By: Komal Walker RN [facility] Consent for Procedure/Surger yon 04-13-2023 Consent for Procedure/Surgery [id number]#1.00CD:127 [facility] Insurance Correspondence Off ice04-13-2023 Insurance Correspondence Office [id number]#1.00CD:127 [facility] Lab Reportson 04-13-2023 Lab Reports [id number]#1.00CD:127 [facility] Outside [facility] Correspo ndenceon 04-12-[address] [facility] Correspondence [id number]#1.00CD:127 Normal [facility] Outside [facility] Correspondence [id number]#1.00CD:127 Normal [facility] RAD - CT Reporton 04-12-2023 RAD - CT Report [id number]#1.00CD:127 Normal [facility] Consultation Noteon 04-11-20 23 Consultation Note [id number]#1.00CD:127 Normal [facility] Operative Reporton Operative Report [id number]#1.00CD:127 [facility] Office Visiton 01-05-2023 Follow-up visit [id number] Ricardo Corrigan 1945 M Date Provider Department Center 01/05/2023 SYDNEE DANIELS CARD [facility] No family history on file Level of Service:70653 SC OFFICE/OUTPATIENT ESTABLISHED MOD MDM 30-39 MIN Reason for Visit and Comments: Coronary Artery Disease [187] Hypertension [526689] Hyperlipidemia [182] Normal [facility] Coding Summary.on 11-14-2022 Coding Summary. CD:[id number]:[id number] Gh0bWw +PGhlYWQ+MJ3GKWCoI29wwHKus B0RW2zXYG2WSLLJEFIJWZ2EST3 hcTZ6FZiqU9FtroTl KvbelOAmSI02WWo3QFV1dCliHM jxmO0mkJNfX4e5GfTaRT06mV67 HCyyJFNyScS7AnXmiogxxBDx V8jsMkLbeNJlHwv+PHRhYmxlIH deLRAxMLimHLPmKjIpfHpzEO7p Ib4sJOUgBPIkjMjxjULkDtOf j3juDXJyIOnvOP0gdQbyH0OzcD V7SVPma8n6Mf86wOZ+PHRkIHN0 cUanKKnoe187TgXtw2beZEP2 jYOcCXiqNFC0S23qt9N1HMQsUQ NuPVN0hNR5rA9qmQrzhfphB6Nt lOCfQvG7KZW8cGHocM7lmTwg pvosbT1vZmi+F75SJZ2GVRDJSN 6WQvr5D6BwFdnviPM+JG30BJSc NR59wFQguOTqc2cvrMz4KyQm LYQfUSJ6uUnuIBodg5SsHEYjA2 8xkPPdh8E5OBOzcHwmvZMzNbTt fOP5rP7aZMapzqptn0qwbtnk Hbtzb9melg37uX73L55wYAkuRG OoMIO1YUIjRRVymYgyse8biA0n Ii8+GBdzn5ggr5pjpBj7TjTk IBGtptLycIytFCQ0r3RtKv48X3 DnqYnlw0RnHjc6ty41lAJvf7K4 fPG6SIfcZKMngK8mDWelHrY5 KIQxVtMtmN14fRFeJPprYz0koB yexXqsYH2yWNNflsvmWTArvY2g HZCisQXmxAugPA0gTMOpbhso l743JmOsWBZ4YVWzmAEyY2EhcE 7eQiZeIFOqKJVmY9FymUJfEIje Z739PFjaWuQ7PUChjvNvF3Tc WQWinCgeYfJ6a3Q6Ae7Ua7Uhnu zoXAU9UHdsUGVwTuPaNwRwBmX1 O0DpLhs7SPSimFwdRW4iC2Td HALconnaiafcvBL1JCYkLHRlnY 18oDOfHQjtGd0lo4T1k464QBJh EQBglR61Ad3epPbwXQXqoAKY cA0tlcodb8aizqtuCxElRHXeQT q3AHf2QOJltWfbLfXuBZQ1DeE0 LAP2dRZsjN6ufJsltglboC2c Oyc+D46uaI7tARE4ACH5dvabCA FkzrGaKV09UG63O9OmPpikwBXx bGU+AZFggfSetTpcCU2vZkNi a2zon4EaBIukD2KdMEVzMUzrLc d0YNZrRAN9lKG0xZ2yIGEvLPec d4U9pZG2F7VnisQwgx6wy4ih MZCsCHhjM47ufMArb5B0XWNwaH T0XZAsgFxrRgWkcP96Iii+PGNv mIjks2QtRoyix9oqt7pdaJk8 SvPzNZSoetXwfUqmBQA9y1XnVx 16W02vIDqwBKFwEFTyRHGrZYBt xItgzk2rjL1jDv0+PGNvbCB3 iIQ6dN9cPFQnUfU0XIbbY517Ru WaiGBaDsnlz6nnv1dkuEd9CzRy ZDPnuoFqlVoyUFD1c0NcHf37 R74aKSqwOLZqRIJfOHHkUMJldX wwmu5iyY5zLd7+ON6wx8jovh73 qZ74zAV+IYRdCFQ2gYxoUSpn ALKzfA4gRLosSyG4ZSWxXgAljF 79cEVzUEeaVn2xoDuyrFgzVH5u RXGczxzdx686ZrDag0zpOWUi iKCvJZabBSJ0E28yp3V8TAXeSW UdHGZ5tCQ9vI5vdHpqwgrukJBc mUtdlhOdlMtdXZljIQxfP227 IHRvcDsnPlBhdGllbnQgTmFtZT y1B2GfVij4WRUffVxpYW4pmWAw NBpeHi5hfQkctGxtWL1nEXLt tuwvz799RwIqh7rpAYDeqGFwYI dkRSC0Z64wn4B2ISVyJCXvCVC7 yMO9qH2gbGmlccsbpXFxvZpo xdTplAwfKGzqRTlfY928UWYfvR qeKyFpfqAkPQVcgEM0OC27NB20 hCArd0U3nOG1L3UmZPWvqpcp vwqzqQB1NSBuNTDviZ34Od2heO uuVp3mMLGeVCC3KVPhnIPeN8Hv hQ0dKlNeSHNoPIKoG6MysYLt ODffP585YTsmSnW5JXAylfHqS4 XiLZOyxEbsAfO9q6B5Su9DB7R8 QN35FX92oFQqn9J1gTV5Q1Ub ZUXlfuolfpqxkTS7JLWpPRMluF 88Yk5qwFloPp3gNRKaDYE0GGTl fBLwK1GdhN3vHvSpIAUqAGMc L1XqxARdXBbcO584MAemMdY1XT GgfpNiK2EmDBPscPjkLdG0h4W4 Wb3HHZv7ER72RW00vPCoy8J3 vAO9N9FtZISivdyfmmmiqAW4OB GhSHUgrQ17Yh3lgPhhSl9qJPWf SUL5TOTjbHOhR1JfpM1sMhYh QATdDLDbK4UhcKQwNHllR702ET ogWuE7NMCwkxEhM0LzPVEmxLqn BoD4p1Q2Vc2CLYCpDH87WSB9 iFZ4HT51QQ08W7KyWdfzkAEmzS U+PHRhYmxlIHdpZHRoPScxMDAl PeIhpJryRP6gWm5wKTIjDFWb iVtfwEXrEwCkc4riLWPaTSxdTU 7ymOnfU6SnlJU2ZFDoj9r9Su66 H59gX6QvlSI+AFRycWF8iTK1 nJ8jYeZnCyR1EVkzE496UnEprT KfQmtdx9uog3vodJd8CvJ1TWWx tgAzaXdlVCV8x6DiPy46A23a IHdpZHRoPSIxNSUiIHZhbGlnbj 6gcE9oRr4+DYOxzBH9wPE7vO7d FaLiSkQ8ZUgsX740MaXbhYTs Uzcby9bwg4dayRg3YyRsMBBsaf NmpTnbMNX3b3XcNi98W5DcaWua h4EeVjl8nh17iQVke3L7tRH8 T5TgOBDzlractOUnyHgaEH5cJX TehcpyWNUneY7gRQSgI7p6CoXz DuO3CIlwU0EoipZ0TIYqkIWv DFwhVDP3X18sh3T2TGIfQXWxFO H0lOW2nG4hrCunbxvadDVyzXkz cgFexSfnBWjxFXuyJ429QFZo pLniEANqcS8aQEPulKCneDgsFR 2gRQNhrzoaYkmYMFyEHRwwS8BH GNWJNH43CK52vHDkg8T0zJB2 C2BhTOYstpzfqrdhpSF5YYJkTX ElyF88uXVuLNyzVk5du5O0y899 MLWwDHIaoN98Rm7xvQinHKRl fBKIyK0ejtoqu4hpfrjxBqOjWJ FbQQb8AKl6KUKagLfsGzFoISY0 CyA2IRY5bOKyiZ8csDhcouny sJ2qWkj+LXBvYTowIRx5JNqghZ Q+UQOuPYN0uXleFOddZPHdvB1l WGImD5a8ZuBwCyS4UZliX1Ll AQMiddncQo71oL2xQiFzKiF0XK bwE1WlerZ4YFFotIZyPZooHDY3 X97mw4N6LAShYETtEUT5wWR1 rQ0lkHmdhvibuGBbmKiqylRfvZ hqGUgoTVkbX455OUEzkVdkMxy7 MDctPGJiEJ76CC83aOLsh0D2 aFX8Q3DkRVLxtmglcrngnIG3PN ZpAYXvcO46hNEhMAbhBs1xn1G4 y060JWLuATQwzG52Zo5pbJsc MBBahFTMnE7oylkth1aiabjdXr HhRXAvWOt1NIz2RJKqtZewTuRs QZX5BuP9XMO2bPRsfN1zqGho beeqgE5fAqa+TWFsZTwvdGQ+PH IcMKR0sKlwINobWHRgxZ8eOWHg P0m4QnKzGdD8AGugG1HpLVSh alguNt12fD9iCqFhZxI3ZAndW9 SfoqT3VNHzwNLpEOnuJXT4I03k w7M5PJXvUKGdENG0wYO5yD7l bGlnbjogbGVmdDsgdmVydGljYW iuOAygB157OILkxWlnMnajBgNV rd2rAS9uLepudAZ+LE03en41 X7DqUlnlXan5CRYhTLQ4uCF0kD 6fNUWaQUjhg8X9hJH7I5BnfhFy zd5na2qmKNUuNKagO87ckGLp i1V7LBHcnNO3BKXueVhrRbEcnL 93Oyc+BEEfeEwlz2ZdVnbkg0nh d4pvuKa9DfKbPZWmttSgcLoc EXN6l6JtLc20C15xEGweQLLhJG GzHVAjYPWhxRpyxj7qoF6hJr7+ OIVmiIN1uSR0tE8nFkVsHiN0 PCexJ810QiCulNMlRwgvi6eyq5 jtgEt5UzLfSFOfnvPemPrhQZL6 c2GmIj96V4GprRyeo5MqDcc3 cq84tXJeh9Z2aPS2E8FrOKXbuy bbyZTilAsxAQ4jRBMubjhnKZJu cL4vEWFoA3h7TyEbIzH4QVzf S7ZazoJ3MILomPYnMSDliKBOgJ 1ufjxli4coxdrkIaLaLRFeIVl2 RZu0OLFgeZfhAhEpGUP5UvD6 ZHM1nOHbeM0pkTijxcdyhG4vBw c+GBk2l9gsyRZsSG0yvBO4FU36 QM50bTMot6Z6nNR4N5OdOAWi equfnsixcUF2SBXyLQBiiV33Bg 0kfPxmJb3lSFJsGCR3GLCzoEZf J7GbeF6sYxFiPDAfVGWaQ6Ys cRQaLDmqV545SMpoQgV0ISZwiu SlA0OnHEHusRcgPoO6n5U7Dl1K WG31EH17YJ34kHZio2G2dNR8 P4TfFOKorigkzizffXY2HIDjRE HlqF05Ui7kvYmvDq1nBNPgGDM2 NRCynOHmA0YdaE8pRtDdSAYt VZOoN2EouREsPSewW340RRqxRn P2UHWfojWnJ2SeHGGrxHjhWqK3 r0I2Bc6PLi16HI96PX60kXNl t8H8iTN9A1JwEMOnqwdxxmgzsG Q3REFmSFEbqV56Mx7pxQesMk1d BGTiINR6NRPirUAmQ8SxsW2b IaBjLCTlQFDaX9OijDXdVWebX6 89NLbjLpM4KFZswsZbZ3IqTNWo vFhpKzB4n5W3Xf0MZSwlrgs6 S3MnBtkntCC+QL41JCUdKP01jV VfkSEpz7xoaRj2HnCrKXNoDQQ2 wAnxNGbwa6IwMLFmL26kpHVp c2U6 (more content not included)... Normal [facility] Family Medicine Office/Clini c Noteon 11-14-2022 Family [...] 02/12 and is not on medication list. [place]: per pt UTD at [facility] PSA: ? Flu: declines AMW: 04/30/23 History of Present Illness Ricardo Corrigan is a 77-year-old male present today for follow up. He is accompanied by an adult female. He states that he is doing well. He last saw his vp [employer] in 01/2022 when he had a stress test. He denies any chest pain. He does have shortness of breath with activity. He watches television 7 hours a day and has gained some weight. Ricardo states that he had blood work done at the [facility] in 08/2022. Review of Systems PHQ Score [...] bilaterally, speech normal Assessment/Plan 1. CAD in [place] artery (I25.10: Atherosclerotic heart disease of [place] coronary artery without angina pectoris) At this time, the patient is continuing on aspirin and statin. Patient needs to follow up with his vp [employer]. Reviewed last echo which showed grade 1 [...] after patient or guardian consented to allow [employer] to record this visit. RICKIE retail customer service specialist and provider reviewed before signing. RICKIE: Suzanne Atkinson Follow-up No qualifying data available Patient Education BMI for Adults 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 Bradycardia CAD in [place] artery Chronic kidney disease, stage 3a Closed [...] tablet simva (more content not included)... Normal [facility] Comment on above: Result Comment: Elec tronically Signed By: Betina Sampson MD\.br\Date and Time Signed: 11/14/22 11:06 EST\.br\Electronically Co-Signed By: Suzanne Gordon\.br\Date and Time Co-Signed: 11/13/22 10:41 EST Auto Diffon 11-13-2022 Basophils/100 WBC (Bld) 0.7 % Normal 0.0-2.0 [facility] Comment on above: Order Comment: Order Added by Discern Expert. Performed By: #### 1 [id number], [id number], [id number] ####[facility] [id number] [place] [address] Basophils/Leukocyt es Auto (Bld) [Pure # fraction] 0.0 E9/L Normal 0.0-0.2 [facility] Comment on above: Order Comment: Order Added by Discern Expert. Performed By: #### 1 [id number], [id number], [id number], [id number] ####[facility] [id number] [place] [address] Eosinophils/100 WBC (Bld) 3.2 % Normal 0.0-8.0 [facility] Comment on above: Order Comment: Order Added by Discern Expert. Performed By: #### 1 [id number], [id number], [id number], [id number] ####[facility] [id number] [place] [address] Eosinophils/Leukoc ytes Auto (Bld) [Pure # fraction] 0.2 E9/L Normal 0.0-0.5 [facility] Comment on above: Order Comment: Order Added by Discern Expert. Performed By: #### 1 [id number], [id number], [id number], [id number], [id number] ####[id number] [place] [address] Lymphocytes/100 WBC (Bld) 27.3 % Normal 14.0-50.0 [facility] Comment on above: Order Comment: Order Added by Discern Expert. Performed By: #### 1 [id number], [id number], [id number], [id number], [id number], [id number] ####[address] [place] [address] Lymphocytes/Leukoc ytes Auto (Bld) [Pure # fraction] 1.8 E9/L Normal 1.0-4.0 [facility] Comment on above: Order Comment: Order Added by Discern Expert. Performed By: #### 1 [id number], 5186999, 9410903, 9217618, 8284899, 87624257 ####[address] [address] Monocytes/100 WBC (Bld) 11.4 % Normal 4.0-14.0 [facility] Comment on above: Order Comment: Order Added by Discern Expert. Performed By: #### 1 1254987, 0408444, 0201622, 8374549, 1686953, 01733350 ####[address] [address] Monocytes/Leukocyt es Auto (Bld) [Pure # fraction] 0.7 E9/L Normal 0.2-1.0 [facility] Comment on above: Order Comment: Order Added by Discern Expert. Performed By: #### 1 1569907, 2399800, 8406357, 8362751, 0116034, 36047355 ####[address] [address] Neutrophils/100 WBC (Bld) 57.4 % Normal 36.0-75.0 [facility] Comment on above: Order Comment: Order Added by Discern Expert. Performed By: #### 1 1959937, 5694978, 4919135, 8120476, 7408280, 96435243 ####[address] [place] [address] Neutrophils/Leukoc ytes Auto (Bld) [Pure # fraction] 3.7 E9/L Normal 2.0-7.5 [facility] Comment on above: Order Comment: Order Added by Discern Expert. Performed By: #### 1 6169340, 1055677, 0272067, 0235789, 9062523, 47707264 ####[address] [address] CBC w/ Auto Diffon 3 Erythrocyte distribution width (RBC) [Ratio] 13.8 % Normal 10.9-14.2 [facility] Comment on above: Performed By: #### 1 7417578, 3720498, 4471336, 1814879, 3577799, 95090552 ####[address] [address] Hematocrit (Bld) [Volume fraction] 50.0 % High 37.7-49.0 [facility] Comment on above: Performed By: #### 1 2106888, 8610717, 9131759, 7501277, 2840377, 52760640 ####[address] [address] Hemoglobin (Bld) [Mass/Vol] 16.0 g/dL Normal 13.5-17.5 [facility] Comment on above: Performed By: #### 1 0722203, 1218585, 1797370, 7860158, 0838979, 84262808 ####[address] [address] MCH (RBC) [Entitic mass] 30.1 pg Normal 27.0-34.0 [facility] Comment on above: Performed By: #### 1 2117480, 0804995, 5869325, 0191553, 1505769, 09142339 ####[address] [address] MCHC (RBC) [Mass/Vol] 31.9 g/dL Normal 31.4-36.0 [facility] Comment on above: Performed By: #### 1 8005763, 2451491, 5205996, 8041775, 5237472, 42823377 ####[address] [place] [address] MCV (RBC) [Entitic vol] 94.3 fL Normal 80.0-100.0 [facility] Comment on above: Performed By: #### 1 3925865, 9017529, 3698983, 5611023, 2936828, 02802160 ####[address] [place] [address] Platelet mean volume (Bld) [Entitic vol] 8.1 fL Normal 6.4-10.8 [facility] Comment on above: Performed By: #### 1 3987016, 4812228, 3598678, 7230361, 9855851, 10035458 ####[address] [address] Platelets (Bld) [#/Vol] 160.0 E9/L Normal 150.0-500.0 [facility] Comment on above: Performed By: #### 1 9797796, 5380231, 1043681, 1827713, 2840826, 03577816 ####[address] RBC (Bld) [#/Vol] 5.3 E12/L Normal 4.3-5.9 [facility] Comment on above: Performed By: #### 1 6067005, 0622900, 6162252, 6947105, 9336201, 63217087 ####[address] [place] [address] WBC corrected for nucl RBC Auto (Bld) [#/Vol] 6.4 E9/L Normal 4.0-11.0 [facility] Comment on above: Performed By: #### 1 8099598, 0460629, 9455928, 9622659, 0188811, 83738093 ####[address] [address] CHEMISTRYOrdered By: SYSTEM SYSTEM on 11-13-2022 Albumin [...] rate/Area] 59 mL/min/1.73 m2 Normal >=59mL/min/1.73 m2 [facility] Chem S Globulin (S) [Mass/Vol] 3.0 g/dL Normal 1.4 - 4.0 gm/dL FT Remisol Glucose [Mass/Vol] 108 mg/dL Normal 55 - 199 mg/dL FT Remisol Potassium [Moles/Vol] 4.5 mmol/L Normal 3.5 - 5.3 mmol/L FT Remisol Protein [Mass/Vol] 7.0 g/dL Normal 6.0 - 7.8 gm/dL F [facility] [place]isol Sodium [Moles/Vol] 140 mmol/L Normal 135 [...] 11-13-2022 Albumin [Mass/Vol] 4.0 g/dL Normal 3.3-5.0 [facility] Comment on above: Performed By: #### 1 7341020, 8250876, 5920305, 9872836, 9605386, 94671370 ####[facility] [address] [place] [address] Albumin/Globulin (S) [Mass conc ratio] 1.3 Normal 1.1-2.2 [facility] Comment on above: Performed By: #### 1 5074137, 3030597, 6855748, 2100612, 7732959, 43950493 ####[facility] [address] [place] [address] ALP [Catalytic activity/Vol] 51 Int._Unit/L Normal 21-98 [facility] Comment on above: Performed By: #### 1 9907297, 2849317, 2793549, 9804031, 4669600, 12561946 ####[facility] [address] [place] [address] ALT No additional P-5'-P [Catalytic activity/Vol] 26 Int._Unit/L Normal 6-46 [facility] Comment on above: Performed By: #### 1 2327371, 3850616, 8460879, 7863045, 3355321, 51212157 ####[facility] [address] [place] [address] Anion gap [Moles/Vol] 12 mmol/L Normal 6-16 [facility] Comment on above: Performed By: #### 1 5905747, 0630601, 3338107, 1850766, 9823138, 31680768 ####[facility] [address] [place] [address] AST [Catalytic activity/Vol] 25 Int._Unit/L Normal 5-43 [facility] Comment on above: Performed By: #### 1 9676677, 1582958, 7479440, 4285493, 5113571, 68863670 ####[facility] [address] [place] [address] Bilirubin [Mass/Vol] 0.8 mg/dL Normal 0.0-1.1 [facility] Comment on above: Performed By: #### 1 5420205, 9565643, 4446682, 5558524, 2588801, 55747176 ####[facility] [address] [place] [address] Calcium [Mass/Vol] 9.1 mg/dL Normal 8.9-11.1 [facility] Comment on above: Performed By: #### 1 9397800, 4991042, 0454460, 8352902, 5297926, 02839409 ####[facility] [address] [place] [address] Chloride [Moles/Vol] 106 mmol/L Normal 101-111 [facility] Comment on above: Performed By: #### 1 8203694, 6157220, 2265506, 0638103, 7714802, 89367673 ####[facility] [address] [place] [address] CO2 [Moles/Vol] 27 mmol/L Normal 21-31 [facility] Comment on above: Performed By: #### 1 6263574, 0126733, 1198342, 5568252, 7343916, 99208348 ####[facility] [address] [place] [address] Creatinine [Mass/Vol] 1.2 mg/dL Normal 0.5-1.3 [facility] Comment on above: Performed By: #### 1 9730742, 9252993, 9966914, 0000741, 2045860, 52408428 ####[facility] [address] [place] [address] Globulin (S) [Mass/Vol] 3.0 g/dL Normal 1.4-4.0 [facility] Comment on above: Performed By: #### 1 6525368, 7120267, 2395985, 0460848, 7076424, 71871623 ####[facility] [address] [place] [address] Glucose [Mass/Vol] 108 mg/dL Normal 55-199 [facility] Comment on above: Result Comment: If t his glucose result represents a fasting glucose, interpretation should refer to the following reference range: 55-99 mg/dL Performed By: #### 1 4883524, 6397374, 0735526, 5957040, 8942242, 62656581 ####[facility] [address] [place] [address] Potassium [Moles/Vol] 4.5 mmol/L Normal 3.5-5.3 [facility] Comment on above: Performed By: #### 1 6638551, 3529509, 4474710, 3907747, 7592540, 60801972 ####[facility] [address] [place] [address] Protein [Mass/Vol] 7.0 g/dL Normal 6.0-7.8 [facility] Comment on above: Performed By: #### 1 7888228, 6541386, 2466095, 1965640, 6524856, 46730208 ####[facility] [address] [place] [address] Sodium [Moles/Vol] 140 mmol/L Normal 135-145 [facility] Comment on above: Performed By: #### 1 6897176, 1687345, 5180744, 7084845, 9919360, 02193134 ####[facility] [address] [place] [address] Urea nitrogen [Mass/Vol] 27 mg/dL High 5-21 [facility] Comment on above: Performed By: #### 1 9857761, 2046893, 4187293, 3031307, 7772368, 86461967 ####[facility] [address] [place] [address] Urea nitrogen/Creatinin e [Mass ratio] 22 No Units High 10-20 [facility] Comment on above: Performed By: #### 1 0288124, 4703704, 7217749, 9918041, 6894356, 95067174 ####[facility] [address] [place] [address] HEMATOLOGYOrdered By: SYSTEM SYSTEM on 11-13-2022 Basophils/100 [...] 6.4 E9/L Normal 4.0 - 11.0 E9/L [facility] HemeAutoSS Lipid Panelon 11-13-2022 Cholesterol [Mass/Vol] 156 mg/dL Normal 120-200 [facility] Comment on above: Performed By: #### 1 4117817, 5435675, 4460554, 0915827, 1689364, 21300413 ####[facility] [address] [place] [address] Cholesterol in HDL [Mass/Vol] 38 mg/dL Invalid Interpretation Code [facility] Comment on above: Result Comment: HDL > or equal to 60 mg/dL: Low cardiovascular risk HDL < 40 mg/dL : High cardiovascular risk Performed By: #### 1 6706822, 9246253, 2822085, 1700614, 3124471, 51863377 ####[facility] [address] [place] [address] Cholesterol in LDL [Mass/Vol] 94 mg/dL Normal <=129 [facility] Comment on above: Performed By: #### 1 9562978, 7390665, 1410313, 6267984, 0138033, 04885140 ####[facility] [address] [place] [address] Cholesterol in VLDL [Mass/Vol] 31 mg/dL Normal 7-40 [facility] Comment on above: Performed By: #### 1 5839947, 0350726, 0957244, 2442297, 8111191, 69514971 ####[facility] [address] [place] [address] Triglyceride [Mass/Vol] 157 mg/dL High <=149 [facility] Comment on above: Performed By: #### 1 1395552, 0876139, 7125077, 4147560, 4265205, 54305486 ####[facility] [address] [place] [address] Patient Educationon 11-13-19 23 Patient Education Nutrition [...] height. This can be done either in [place] or metric measurements. Note that charts are available to help you find your BMI quickly and easily without having to do these calculations yourself. To calculate your BMI in [place] measurements, your health care provider will: [...] problems. ? BMI can be measured using [place] measurements or metric measurements. ? To interpret [...] 05/22/2005 Document Revised: 08/23/2018 Document Reviewed: 07/24/2018 [employer] Patient Education ? 2019 [employer]. Normal [facility] TSH With T4fr Reflexon 11-13 TSH Qn 2.22 m[IU]/L Normal 0.34-5.60 [facility] Comment on above: Performed By: #### 1 5192817, 2476268, 0698581, 5225501, 1809413, 84086424 ####[facility] [address] [place] [address] eGFRon 11-13-2022 GFR/1.73 sq M.predicted among blacks MDRD (S/P/Bld) [Vol rate/Area] mL/min/{1.73_m2} Normal >=59 [facility] Comment on above: Order Comment: Order added by Discern Expert. Result Comment: eGFR is race adjusted. AA=. Performed By: #### 1 3849711, 0337802, 0763719, 3450734, 1901409, 33102068 ####[facility] [address] [place] [address] GFR/1.73 sq M.predicted among non-blacks MDRD (S/P/Bld) [Vol rate/Area] 59 mL/min/1.73 m2 Normal >=59 [facility] Comment on above: Order Comment: Order added by Discern Expert. Result Comment: Superintendent Track aaliyah kidney disease could be indicated at eGFR's of less than 60 mL/min/1.73m2. Kidney failure is indicated at less than 15 mL/min/1.73m2. Performed By: #### 1 3539304, 8117826, 0086901, 6704359, 1799995, 06737421 ####[facility] [address] [place] [address] ECHOCARDIO M/2D COMPLETEon 1 09-25-2021 ECHOCARDIO M/2D COMPLETE Patient: RICARDO CORRIGAN Exam Date: 07/26/2022 : 1945 Gender:M Ordering : DR ANTONIO IGNACIO M.D. Admission #: [id number] Family : DR. BETINA SAMPSON . Order #: [id number] CLICK HERE TO VIEW EXAM ECHOCARDIOGRAM REPORT [...] 3.35 cm Aortic Valve AoV Area (Peak Jules): 2.71 cm2, 3.67 cm2 AoV Area (VTI): [...] Antonio Ignacio M.D. on 07/26/2022 at 12:05 [facility] AUTO DIFFon 04-27-2022 BASO # 0.1 103/ul Normal 0.0-0.1 [facility] Comment on above: Performed By: #### C BC #### [facility] [address] [address] [address] Kimber Rascon Basophils/100 WBC (Bld) 0.7 % Normal 0.2-2.0 [facility] Comment on above: Performed By: #### C BC #### [facility] [address] [place] [address] Dr. Kimber Rascon EO # 0.2 103/ul Normal 0.0-0.7 [facility] Comment on above: Performed By: #### C BC #### [facility] [address] [place] [address] Dr. Kimber Rascon Eosinophils/100 WBC (Bld) 2.8 % Normal 0.9-7.0 [facility] Comment on above: Performed By: #### C BC #### [facility] [address] [place] [address] Dr. Kimber Rascon Erythrocyte distribution width (RBC) [Ratio] 12.6 % Normal 11.0-15.0 [facility] Comment on above: Performed By: #### C BC #### [facility] [address] [place] [address] Dr. Kimber Rascon Hematocrit (Bld) [Volume fraction] 47.1 % Normal 42.0-54.0 [facility] Comment on above: Performed By: #### C BC #### [facility] [address] [place] [address] Dr. Kimber Rascon Hemoglobin (Bld) [Mass/Vol] 15.9 g/dL Normal 14.0-18.0 [facility] Comment on above: Performed By: #### C BC #### [facility] [address] [place] [address] Dr. Kimber Rascon IG # 0.04 10e3/ul Critically high 0.00-0.03 [facility] Comment on above: Performed By: #### C BC #### [facility] [address] [place] [address] Dr. Kimber Rascon IG % 0.6 % Critically high 0.0-0.5 [facility] Comment on above: Performed By: #### C BC #### [facility] [address] [place] [address] Dr. Kimber Rascon LYMPH # 2.3 103/ul Normal 1.2-3.8 [facility] Comment on above: Performed By: #### C BC #### [facility] [address] [place] [address] Dr. Kimber Rascon Lymphocytes/100 WBC (Bld) 34.4 % Normal 20.5-60.0 [facility] Comment on above: Performed By: #### C BC #### [facility] [address] [place] [address] Dr. Kimber Rascon MANUAL DIFF REQ NO Normal [facility] Comment on above: Performed By: #### C BC #### [facility] [address] [place] [address] Dr. Kimber Rascon MCH (RBC) [Entitic mass] 30.8 pg Normal 25.9-34.0 [facility] Comment on above: Performed By: #### C BC #### [facility] [address] [place] [address] Dr. Kimber Rascon MCHC (RBC) [Mass/Vol] 33.8 g/dL Normal 29.9-35.2 [facility] Comment on above: Performed By: #### C BC #### [facility] [address] [place] [address] Dr. Kimber Rascon MCV (RBC) [Entitic vol] 91.3 fL Normal 80.0-94.0 [facility] Comment on above: Performed By: #### C BC #### [facility] [address] [place] [address] Dr. Kimber Rascon MONO # 0.6 103/ul Normal 0.3-0.8 [facility] Comment on above: Performed By: #### C BC #### [facility] [address] [place] [address] Dr. Kimber Rascon Monocytes/100 WBC (Bld) 9.4 % Normal 1.7-12.0 [facility] Comment on above: Performed By: #### C BC #### [facility] [address] [place] [address] Dr. Kimber Rascon NEUT # 3.6 103/ul Normal 1.4-6.5 [facility] Comment on above: Performed By: #### C BC #### [facility] [address] [place] [address] Dr. Kimber Rascon Neutrophils/100 WBC (Bld) 52.1 % Normal 43.0-75.0 [facility] Comment on above: Performed By: #### C BC #### [facility] [address] [place] [address] Dr. Kimber Rascon Platelet mean volume (Bld) [Entitic vol] 9.2 fL Critically low 9.5-13.5 [facility] Comment on above: Performed By: #### C BC #### [facility] [address] [place] [address] Dr. Kimber Rascon PLT 161 103/ul Normal 150-450 [facility] Comment on above: Performed By: #### C BC #### [facility] [address] [place] [address] Dr. Kimber Rascon RBC 5.16 106/ul Normal 4.70-6.10 [facility] Comment on above: Performed By: #### C BC #### [facility] [address] [place] [address] Dr. Kimber Rascon WBC 6.8 103/ul Normal 4.0-11.0 [facility] Comment on above: Performed By: #### C BC #### [facility] [address] [place] [address] Dr. Kimber Rascon LIPID PROFILEon 04-27-2022 CHOL-HDL RATIO NORM SEE BELOW Normal [facility] Comment on above: Result Comment: 3.3 - 4.4 LOW RISK 4.4 - 7.1 AVERAGE RISK 7.1 - 11.0 MODERATE RISK >11.0 HIGH RISK Performed By: #### L IPID #### [facility] [address] [address] [address] Kimber Rascon Cholesterol [Mass/Vol] 144 mg/dL Normal <=200 [facility] Comment on above: Performed By: #### L IPID #### [facility] [address] [address] [address] Kimber Rascon Cholesterol in HDL [Mass/Vol] 35 mg/dL Critically low 40-60 [facility] Comment on above: Performed By: #### L IPID #### [facility] [address] [address] [address] Kimber Rascon Cholesterol in LDL [Mass/Vol] 68.0 mg/dL Normal [facility] Comment on above: Performed By: #### L IPID #### [facility] [address] [address] [address] Kimber Rascon Cholesterol.total/ Cholesterol in HDL [Mass ratio] 4.1 {ratio} Normal [facility] Comment on above: Performed By: #### L IPID #### [facility] [address] [address] [address] Kimber Rascon HDL NORMAL > or = 60 mg/dl - LO W CARDIOVASCULAR RISK <40 mg/dl - HIGH CARDIOVASCULAR RISK Normal [facility] Comment on above: Performed By: #### L IPID #### [facility] [address] [place] [address] Dr. Kimber Rascon LDL CALC NORMAL SEE BELOW Normal [facility] Comment on above: Result Comment: <100 mg/dl OPTIMAL 100 - 129 mg/dl NEAR OR ABOVE OPTIMAL 130 - 159 mg/dl BORDERLINE HIGH 160 - 189 mg/dl HIGH >190 mg/dl VERY HIGH Performed By: #### L IPID #### [facility] [address] [address] [address] Kimber Rascon Triglyceride [Mass/Vol] 205 mg/dL Critically high <=150 [facility] Comment on above: Performed By: #### L IPID #### [facility] [address] [address] [address] Kimber Rascon VLDL CALC 41.0 mg/dL Normal [facility] Comment on above: Performed By: #### L IPID #### [facility] [address] [place], [place] [address] Dr. Kimber Rascon Cardiovascular Lab Reporton 01-16-2018 Cardiovascular Lab Report [facility] Patient Name: Ricardo Corrigan [facility] MR #: [id number] Physician: Antonio Lopez M.D.Medicine Service Date: 01/16/2018Division of Birthdate: 4Cardiology Room #: CCAdult [facility]ServicesC[facility] [place], [place] [address]Krxvl Fax Cardiovascular Laboratory ReportINDICATION: Ricardo Corrigan is [...] signed informed consent. He was brought to cleaning laborer in a fasting state.The left wrist area was prepped and draped in usual fashion. Adriel's testwas favorable. Access in the left radial artery was obtained usingmodified Seldinger technique. A 6-Mongolian x 11 cm Hydrophilic sheath wasadvanced. Verapamil was given through the sheath and heparin wasadministered intravenously. A 6-Mongolian XB 3.5 guiding catheter wasadvanced over a Tello wire and used to engage left main coronary ostium.Initial setup angiography was performed. A HubChilla FFR wire was advancedand equalization of pressure [...] 01/16/2018/09:03 A/Antonio Ignacio M.D.Date Trans: 01/16/2018 09:35 A/[id number] c: Maxwell Swan D.O. [address] [place] [address] Normal [facility] Cardiovascular Lab Reporton 12-15-2017 Cardiovascular Lab Report [facility] Patient Name: Ricardo Corrigan [facility] MR #: [id number] Physician: Antonio Lopez M.D.Medicine Service Date: 12/14/2017Division of Birthdate: 4Cardiology Room #: 3CD [id number] [facility]ovascularServicesUn[facility] [address] [place], [place] [address]Wtggg Fax Cardiovascular Laboratory ReportINDICATION: Ricardo Corrigan is [...] signed informed consent. He was brought to cleaning laborer in a fasting state.The left wrist area was prepped and draped in the usual fashion. Adriel'stest was favorable on the left. Access was obtained in the left radialartery using micropuncture technique. A 6-Mongolian x 11 cm Hydrophilicsheath was advanced. Verapamil was given through the sheath and heparinwas administered intravenously. Bilateral selective coronary angiographywas then performed using 6-Mongolian JL4 and JR4 diagnostic catheters.Initial catheter advancement [...] This was post dilated using [place] [employer] Mozier 3.0 x 12 mm ballooninflated at 16 [...] 12/14/2017/07:59 P/Antonio Ignacio M.D.Date Trans: 12/15/2017 03:48 [id number] Normal [facility] Vital Signs Date Time Vital Sign Value Performing Clinician Rohit dang 11-13-2022 08:46-0500 Blood Pressure Location Betina Sampson [facility] 11-13-2022 08:46-0500 Diastolic blood pressure 60 mm[Hg] Betina Sampson [facility] 11-13-2022 08:46-0500 Heart rate 59 /min Betina Sampson [facility] 11-13-2022 08:46-0500 SaO2% (BldA) [Mass fraction] 97 % Betina Sampson [facility] 11-13-2022 08:46-0500 Systolic blood pressure 98 mm[Hg] Betina Sampson [facility] 08-14-2022 11:22-0500 Blood Pressure Location Betina Sampson [facility] 08-14-2022 11:22-0500 Diastolic blood pressure 78 mm[Hg] eBtina Sampson [facility] 08-14-2022 11:22-0500 Heart rate 57 /min Betina Sampson [facility] 08-14-2022 11:22-0500 SaO2% (BldA) [Mass fraction] 98 % Betina Sampson [facility] 08-14-2022 11:22-0500 Systolic blood pressure 112 mm[Hg] Betina Sampson [facility] 04-20-2022 08:21-0400 Blood Pressure Location Betina Sampson [facility] 04-20-2022 08:21-0400 Diastolic blood pressure 62 mm[Hg] Betina Sampson [facility] 04-20-2022 08:21-0400 Heart rate 53 /min Betina Sampson [facility] 04-20-2022 08:21-0400 SaO2% (BldA) [Mass fraction] 96 % Betinachandrakant Sampson [facility] 04-20-2022 08:21-0400 Systolic blood pressure 100 mm[Hg] Betina Sampson [facility] 04-20-2022 08:19-0400 Blood Pressure Location Betinachandrakant Sampson [facility] 04-20-2022 08:19-0400 Diastolic blood pressure 62 mm[Hg] Betina Sampson [facility] 04-20-2022 08:19-0400 Heart rate 53 /min Betina Sampson [facility] 04-20-2022 08:19-0400 SaO2% (BldA) [Mass fraction] 96 % Betina Oz [facility] 04-20-2022 08:19-0400 Systolic blood pressure 100 mm[Hg] Betinachandrakant Sampson [facility] Encounters Encounter Date Encounter Type Care Provider Facility Start: 07-08-2024 ambulatory Betina Sampson Facility :[facility] Start: 12-03-2023 ambulatory Zachary Rika CHUNG Facili ty:[facility] Start: 08-08-2023 End: 08-08-2023 ambulatory [facility] Start: 07-05-2023 End: 07-06-2023 ambulatory Betina Sampson Facility:[facility] Start: 06-11-2023 End: 06-12-2023 ambulatory Betina Sampson Facility:[facility] Start: 05-24-2023 End: 05-25-2023 ambulatory Zachary Rika PAPA Facility:[id number] Start: 05-14-2023 End: 05-15-2023 ambulatory Betina Sampson [facility] Start: 05-03-2023 End: 05-04-2023 ambulatory Zachary Rika PAPA Facility:CD:[id number] Start: 04-30-2023 ambulatory Zachary CHUNG Facility :[facility] Start: 04-23-2023 End: 04-24-2023 ambulatory Betina Sampson Facility:[facility] Start: 04-16-2023 End: 05-21-2023 ambulatory Betina Sampson Facility:[id number] Start: 04-09-2023 ambulatory Zacharyshila CHUNG [facility] Start: 04-07-2023 End: 04-08-2023 ambulatory Zachary Rika PAPA Facility:CD:[id number] Start: 01-05-2023 End: 01-05-2023 ambulatory [facility] Start: 12-06-2022 ambulatory Zachary CHUNG Facility :[facility] Start: 11-13-2022 End: 11-14-2022 ambulatory Betina Sampson Facility:[facility] Start: 11-13-2022 End: 11-13-2022 Lab Drop off Betina Sampson [facility] Start: 11-13-2022 End: 11-13-2022 Patient encounter procedure Betina Sampson [facility] Start: 10-04-[address] ANTONIO IGNACIO Fac ility:[facility] Start: 08-14-2022 End: 08-14-2022 Patient encounter procedure Betina Sampson [facility] Start: 07-26-2022 End: 07-27-[address] ANTONIO IGNACIO Facility:[facility] Start: 05-11-2022 End: 05-12-[address] ANTONIO IGNACIO Facility:[facility] Start: 04-27-2022 End: 04-28-[address] ANTONIO IGNACIO Facility:[facility] Start: 04-24-[address] ANTONIO IGNACIO Fac ility:[facility] Start: 04-20-2022 End: 04-20-2022 Patient encounter procedure Betina Sampson [facility] Start: 04-20-2022 End: 04-20-2022 Patient encounter procedure Betina Sampson [facility] Start: 02-15-[address] ANTONIO IGNACIO Fac ility:[facility] Start: 02-08-2022 End: 02-08-2022 Patient encounter procedure Betina Sampson [facility] Start: 08-22-2018 End: 08-23-2018 Patient encounter procedure DEFAULT PHYSICIAN Facility:[facility] Start: 01-16-2018 End: 01-17-2018 Patient encounter procedure PROVIDER UNKNOWN Facility:[facility] Start: 12-14-2017 End: 12-15-2017 Patient encounter procedure PROVIDER UNKNOWN Facility:[facility] Start: 12-13-2017 End: 12-14-2017 Patient encounter procedure DEFAULT PHYSICIAN Facility:[facility] Start: 12-10-2017 End: 12-11-2017 Patient encounter procedure DEFAULT PHYSICIAN Facility:[facility] Procedures Date Procedure Procedure Detail Performing Clinician Start: 11-22-2017 Placement of stent i n cardiac conduit Betina Sampson Start: 09-24-2017 Colonoscopy Betina kearns Carpal tunnel syndro me of left wrist (disorder) Betina Sampson Carpal tunnel syndro me of right wrist (disorder) Betina Sampson Immunizations Immunization Date Immunization Notes Care Provider Gabriele merino 10-05-2021 SARS-CoV-2 (COVID-19 ) Ad26 vaccine, recombinant Betina Sampson [facility] 11-30-2020 SARS-CoV-2 (COVID-19 ) Ad26 vaccine, recombinant Betina Sampson [facility] NEGATED: Highlighted row has not occurred!11-13-2022 influenza virus vaccine, unspecified formulation Betina Sampson [facility] NEGATED: Highlighted row has not occurred!11-13-2022 SARS-CoV-2 mRNA (tozinameran 5y-11y) vaccine Betina Sampson [facility] NEGATED: Highlighted row has not occurred!08-14-2022 influenza virus vaccine, unspecified formulation Betina Sampson [facility] NEGATED: Highlighted row has not occurred!08-14-2022 SARS-CoV-2 mRNA (tozinameran 5y-11y) vaccine Betina Sampson [facility] Comment on above: Result Comment: Pt r efuses Covid booster Payers Date Payer Category Payer Medicare [id number] 1960 Self-pay [id number] 1960 Unknown [id number] 1945 Unknown [id number] 2.16.8 40.1.675764.3.579.2.647 1945 Unknown [id number] 2.16.8 40.1.234735.3.579.2.647 1944 Unknown [id number] 2.16.8 40.1.146178.3.579.2.647 1944 Unknown [id number] 2.16.8 40.1.549732.3.579.2.647 1944 Unknown [id number] 2.16.8 40.1.133050.3.579.2.647 1944 Unknown [id number] 2.16.84 0.1.960269.3.579.2.593 1944 Unknown [id number] 2.16.84 0.1.519445.3.579.2.593 1944 Unknown [id number] 2.16.84 0.1.582708.3.579.2.593 1944 Unknown [id number] 2.16.84 0.1.116259.3.579.2.593 1944 Unknown [id number] 2.16.84 0.1.346553.3.579.2.593 1944 Unknown [id number] 2.16.84 0.1.839611.3.579.2.593 1944 Unknown [id number] 2.16.8 40.1.685806.3.579.2.727 1944 Unknown [id number] 2.16.8 40.1.692517.3.579.2.727 1944 Unknown [id number] 2.16.8 40.1.777182.3.579.2.727 1944 Unknown [id number] 2.16.8 40.1.690736.3.579.2.727 1944 Unknown [id number] 2.16.8 40.1.889478.3.579.2.727 1944 Unknown [id number] 2.16.8 40.1.041241.3.579.2.727 1944 Unknown [id number] 2.16.8 40.1.652944.3.579.2.727 1944 Unknown [id number] 2.16.8 40.1.847917.3.579.2.727 1944 Unknown [id number] 2.16.8 40.1.280890.3.579.2.727 1944 Unknown [id number] 2.16.8 40.1.089461.3.579.2.727 1944 Unknown [id number] 2.16.8 40.1.589280.3.579.2.727 1945 Unknown [id number] 2.16.8 40.1.091396.3.579.2.727 Medicare [id number] Unknown Social History Date Type Detail Facility Start: 01-17-2022 End: 11-13-2022 Tobacco smoking status Never smoked tobacco (finding) [facility] Tobacco smoking status Never [facility] Sex Assigned At Male [facility] Functional Status Date Assessment Result Facility 11-13-2022 Functional Status N/A [facility] 08-14-2022 Functional Status N/A [facility] 04-20-2022 Functional Status N/A [facility] Clinical Notes 04-20-2022 to 08-08-2023 Note Date & Type Note Facility 08-08-2023 Note [facility] Subjective Ricardo Corrigan is a 78 [...] pressure about 195/104. He was seen in [facility] and D-Dimers were mildly elevated, [...] is seen in (more content not included)... [facility] 04-16-2023 Note [id number] [facility] 01-05-2023 Note Patient here for 6 m [...] All other systems reviewed and are negative. [facility] 01-05-2023 Note Cardiovascular Medic [facility] SUBJECTIVE Chief Complaint Patient presents [...] pressure about 195/104. He was seen in [facility] ED and D-Dimers were mildly elevated, [...] 103/73 (BP Locati (more content not included)... [facility] 11-13-2022 Hospital Discharge instructions Patient Education 11/13/2022 [...] height. This can be done either in [place] or metric measurements. Note that charts are available to help you find your BMI quickly and easily without having to do these calculations yourself. To calculate your BMI in [place] measurements, your health care provider will: [...] medical problems. BMI can be measured using [place] measurements or metric measurements. To interpret your [...] 05/22/2005 Document Revised: 08/23/2018 Document Reviewed: 07/24/2018 [employer] Patient Education 2020 [employer]. [facility] 08-14-2022 Hospital Discharge instructions Patient Education [...] height. This can be done either in [place] or metric measurements. Note that charts are available to help you find your BMI quickly and easily without having to do these calculations yourself. To calculate your BMI in [place] measurements, your health care provider will: [...] medical problems. BMI can be measured using [place] measurements or metric measurements. To interpret your [...] Document Reviewed: 07/24/2018 Elsevier Patient Education 2019 [employer]. [facility] 04-20-2022 Hospital Discharge instructions Patient Education 04/20/2022 08:30:15 Heart Attack, Kwcq-ak-Zqwx Heart Attack A heart attack occurs when blood and oxygen supply to the heart is cut off. A heart attack causes damage to the heart that cannot be fixed. A heart attack is also called a myocardial infarction, or MS. If you think you are having a [...] Follow these instructions at home: Medicines Take ijnl-tqq-ferankv and prescription medicines only as told by [...] 03/11/2013 Document Revised: 12/22/2019 Document Reviewed: 12/22/2019 [employer] Patient Education 2020 [employer]. 04/20/2022 08:29:45 Atherosclerosis Atherosclerosis Atherosclerosis is narrowing [...] health care provider or a diet and food and nutrition services assistant (dietitian) if you need help. A heart-healthy [...] Do not abuse drugs. General instructions Take lhpw-ote-iscmxfn and prescription medicines only as told by [...] 11/30/2004 Document Revised: 12/20/2018 Document Reviewed: 05/16/2018 [employer] Patient Education 2020 [employer] 04/20/2022 08:29:43 Angina Angina Angina is [...] Follow these instructions at home: Medicines Take upch-cfc-vntkmgu and prescription medicines only as told by [...] 09/10/2006 Document Revised: 04/28/2019 Document Reviewed: 04/28/2019 [employer] Patient Education 2020 [employer]. 04/20/2022 08:29:40 Obesity, Adult, Cmns-bp-Xygi Obesity, Adult Obesity is having too much [...] food choices, such as grocery stores and [employer]. What are the signs or symptoms? The [...] eat. ?How much exercise you get. Take egnm-tjz-clqoiqj and prescription medicines only as told by [...] 12/02/2012 Document Revised: 05/15/2019 Document Reviewed: 05/15/2019 [employer] Patient Education 2020 [employer] 04/20/2022 08:29:38 Hypertension, Adult Hypertension, Adult [...] care provider. This is important. Medicines Take ethh-ahp-dvqfekp and prescription medicines only as told by [...] 09/10/2006 Document Revised: 05/21/2019 Document Reviewed: 05/21/2019 [employer] Patient Education 2020 [employer]. 04/20/2022 08:29:38 Heart Disease Prevention Heart Disease [...] of hard liquor (1 oz). Medicines Take gvlz-aff-wmkvllv and prescription medicines only as told by [...] Centers for Disease Control and Prevention: www.cdc.gov/heartdisease [place] Heart Association: www.heart.org ?Take a free online [...] 04/24/2005 Document Revised: 09/25/2018 Document Reviewed: 09/25/2018 [employer] Patient Education 2020 [employer]. 04/20/2022 08:29:37 Exercising to Lose Weight Exercising [...] your health care provider or diet and food and nutrition services assistant (dietitian). This may include: ?Eating fewer calories. [...] 10/13/2011 Document Revised: 09/23/2018 Document Reviewed: 09/23/2018 [employer] Patient Education 2020 [employer]. 04/20/2022 08:29:36 BMI for Adults BMI for [...] height. This can be done either in [place] or metric measurements. Note that charts are available to help you find your BMI quickly and easily without having to do these calculations yourself. To calculate your BMI in [place] ([place] measurements, your health care provider will: [...] medical problems. BMI can be measured using [place] measurements or metric measurements. To interpret your [...] 05/22/2005 Document Revised: 08/23/2018 Document Reviewed: 07/24/2018 [employer] Patient Education [employer]. [facility] Evaluation + Plan note Future Appointments Appointment Date:04/20/2022 08:00:00 AM Scheduled Provider: Location:[facility] Appointment Type: [facility] Wellness [facility] Appointment Date:04/20/2022 09:00:00 AM Scheduled Provider:Betina Sampson MD Location:[facility] Appointment Type: Open [facility] Evaluation + Plan note Future Appointments Appointment Date:07/20/2022 09:20:00 AM Scheduled Provider:Betina Sampson MD Location:[facility] Appointment Type: Open Appointment Date:04/30/2023 08:00:00 AM Scheduled Provider: Location:[facility] Appointment Type: Medicare Wellness Subsequent [facility] Evaluation + Plan note Future Appointments Appointment Date:11/13/2022 09:00:00 AM Scheduled Provider:Betina Sampson MD Location:[facility] Appointment Type: Open Appointment Date:04/30/2023 08:00:00 AM Scheduled Provider: Location[facility] Appointment Type: Medicare Wellness [facility] Evaluation + Plan note Future Appointments Appointment Date:04/30/2023 08:00:00 AM Scheduled Provider: Location:[facility] Appointment Type: Medicare Wellness Subsequent Appointment Date:05/14/2023 07:00:00 AM Scheduled Provider:Betina Sampson MD Location:[facility] Appointment Type:FM [facility] course Narrative No data available for this section [facility] Hospital Discharge instructions No data available for this section [facility] Progress note No data available for this section [facility] Summary Purpose Family History No Family [...] and content) DATE CREATED AUTHOR 09/02/2018 [facility] DATE CREATED AUTHOR AUTHOR'S ORGANIZ ATION 10/04/2022 [facility] DATE CREATED AUTHOR AUTHOR'S ORGANIZ ATION 08/09/2023 [facility] DATE CREATED AUTHOR AUTHOR'S ORGANIZ ATION 09/26/2023 [facility] Care Team (unrecognized sect ion and content) Personnel Name: Betina Sampson MD Address: [address] [place] [address] Personnel Name: Betina Sampson MD Address: [address] [place] [address] Personnel Name: Betina Sampson MD Address: Address: [address] [place] [address] Personnel Name: Betina Sampson MD Address: Address: [address] [place] [address] Personnel Name: Betina Sampson MD Address: Address: [address] [place] [address] FOR RECORDS PERTAINING TO PATIENTS WHO ARE [...] BE BASED ON THE PRIMARY CLINICAL RECORDS. [facility] [employer] [facility]. provides no warranty or guarantee of the accuracy or completeness of information in this document.
[2023-11-17] MEDS: LACTATED RINGER'S SOLUTION 1,000 ML 125 ML IV (16:54)
[2023-11-17] MEDS: CLOPIDOGREL BISULFATE 75 MG TABLET PO (16:54)
[2023-11-17 18:03] LABS: Adenovirus NOT DETECTED (NOT DETECTE); Bordetella parapertussis NOT DETECTED (NOT DETECTE); Coronavirus 229E NOT DETECTED (NOT DETECTE); Coronavirus HKU1 NOT DETECTED (NOT DETECTE); Coronavirus NL63 NOT DETECTED (NOT DETECTE); Coronavirus OC43 NOT DETECTED (NOT DETECTE); Human Metapneumovirus NOT DETECTED (NOT DETECTE); Human Rhinovirus/Enterovirus NOT DETECTED (NOT DETECTE); Influenza A NOT DETECTED (NOT DETECTE); Influenza B NOT DETECTED (NOT DETECTE); Mycoplasma pneumoniae NOT DETECTED (NOT DETECTE); Parainfluenza Virus 1 NOT DETECTED (NOT DETECTE); Parainfluenza Virus 2 NOT DETECTED (NOT DETECTE); Parainfluenza Virus 3 NOT DETECTED (NOT DETECTE); Parainfluenza Virus 4 NOT DETECTED (NOT DETECTE); Respiratory Syncytial Virus NOT DETECTED (NOT DETECTE)
[2023-11-17 19:06] LABS: SARS-CoV-2 DETECTED (NOT DETECTE)
[2023-11-17] MEDS: ACETAMINOPHEN 325 MG TABLET 650 MG PO (22:40)
[2023-11-17] MEDS: ATORVASTATIN CALCIUM 40 MG TABLET 80 MG PO (22:41)
[2023-11-18] VITALS (67 sets, daily range): BP systolic 109–169; BP diastolic 66–87; PULSE 67–91; RESP 3–94; TEMP 36.7–37.4; O2SAT 95–98
[2023-11-18] MEDS: LACTATED RINGER'S SOLUTION 1,000 ML 125 ML IV ×2 (00:39→09:22)
[2023-11-18 04:13] LABS: Basophils Percent Auto 0.6 % (0.2-2.0); Eosinophils Percent Auto 0.3 % (0.9-7.0); Hematocrit 44.2 % (42.0-54.0); Hemoglobin 14.6 g/dL (14.0-18.0); Immature Granulocytes Abs Auto 0.03 10^3/uL (0.00-0.03); Immature Granulocytes Pct Auto 0.5 % (0.0-0.5); Lymphocytes Percent Auto 15.2 % (20.5-60.0); Mean Corpuscular Hemoglobin 30.5 pg (25.9-34.0); Mean Corpuscular Volume 92.5 fL (80.0-94.0); Mean Platelet Volume 9.5 fL (9.5-13.5); Monocytes Absolute Auto 0.9 10^3/uL (0.3-0.8); Monocytes Percent Auto 14.2 % (1.7-12.0); Neutrophils Absolute Auto 4.3 10^3/uL (1.4-6.5); Neutrophils Percent Auto 69.2 % (43.0-75.0); Platelet Count 124 10^3/uL (150-450); Red Blood Count 4.78 10^6/uL (4.70-6.10); White Blood Count 6.3 10^3/uL (4.0-11.0)
[2023-11-18 04:26] LABS: Estimated Average Glucose 114 mg/dL; Glycohemoglobin A1C 5.6 % (4.5-6.2)
[2023-11-18 04:32] LABS: Alanine Aminotransferase 24 U/L (16-63); Albumin Globulin Ratio 0.9; Albumin Level 3.1 g/dL (3.4-5.0); Alkaline Phosphatase 59 U/L (46-116); Anion Gap 13.7; Aspartate Amino Transferase 22 U/L (15-37); BUN Creatinine Ratio 17.2; Bilirubin Total 0.9 mg/dL (0.2-1.0); Calcium 8.2 mg/dL (8.5-10.1); Carbon Dioxide 26.4 mmol/L (21.0-32.0); Chloride 108 mmol/L (98-107); Cholesterol 121 mg/dL (<=200); Estimated GFR (African America >60 (>=60); Estimated GFR (Non-African Ame 51 (>=60); Globulin 3.3 g/dL; Glucose 99 mg/dL (74-106); HDL Cholesterol 41 mg/dL (40-60); Potassium 4.1 mmol/L (3.5-5.1); Sodium 144 mmol/L (136-145); Thyroid Stimulating Hormone 0.792 uIU/mL (0.358-3.740); Total Protein 6.4 g/dL (6.4-8.2); Triglycerides 60 mg/dL (<=150)
--- NOTE | 2023-11-18 07:36 | P.PN_ITS ---
Exam Constitutional Vital Signs, click to edit/add: Last Vital Signs Temp 98.1 F 11/18/23 03:30 Pulse 79 11/18/23 06:00 Resp 20 11/18/23 05:00 BP 155/83 H 11/18/23 03:30 Pulse Ox 96 11/18/23 04:00 O2 Del Method Room Air 11/18/23 03:30 Progress Note: Objective Labs Labs: Short CBC 11/17/23 11/18/23 Range/Units 12:13 03:51 WBC 9.2 6.3 (4.0-11.0) 10^3/uL Hgb 15.2 14.6 (14.0-18.0) g/dL Hct 44.3 44.2 (42.0-54.0) % Plt Count 155 124 L (150-450) 10^3/uL BMP 11/17/23 11/18/23 12:13 03:51 Sodium 140 144 Potassium 4.1 4.1 Chloride 104 108 H Carbon Dioxide 25.8 26.4 BUN 27.0 H 23.0 H Creatinine 1.37 H 1.34 H Glucose 114 H 99 Calcium 8.8 8.2 L Liver Function 11/17/23 11/18/23 Range/Units 12:13 03:51 Total Bilirubin 1.0 0.9 (0.2-1.0) mg/dL AST 21 22 (15-37) U/L ALT 34 24 (16-63) U/L Alkaline Phosphatase 69 59 (46-116) U/L Albumin 3.6 3.1 L (3.4-5.0) g/dL Urine 11/17/23 Range/Units 14:45 Urine Color Yellow (YELLOW) Urine Clarity Clear (CLEAR) Urine pH 7.0 (5.0-9.0) Ur Specific [place] 1.020 (1.005-1.025) Urine Protein Negative (NEG/TRACE) mg/dL Urine Glucose (UA) Negative (NEGATIVE) mg/dL Progress Note: A&P Assessment and Plan (1) TIA (transient ischemic attack): (2) Hypertension: Qualifiers: Hypertension type: primary hypertension Qualified Code(s): I10 - Essential (primary) hypertension (3) Coronary artery disease: Qualifiers: Coronary Disease-Associated Artery/Lesion type: citizen [place] artery [place] vs. transplanted heart: citizen [place] heart Associated angina: without angina Qualified Code(s): I25.10 - Atherosclerotic heart disease of citizen [place] coronary artery without angina pectoris
--- NOTE | 2023-11-18 08:40 | MR_ITS ---
The [address] [address] Patient Name: JAMAICA CORRIGAN MRN: [id number] date: 1945 Sex: M Assigned Patient Location: ICU Current Patient Location: ICU Accession/Order Number: [id number] Exam Date: 11/18/2023 08:40 Report Date: 11/18/2023 09:33 At the request of: KARMEN BALLESTEROS Procedure: MR head/brain wo con MRI BRAIN WITH AND WITHOUT CONTRAST; 11/18/2023 8:40 AM EST History:possible cerebellar infarct, TIA Comparison: Head CT 11/17/2023 . SEQUENCES: Per routine unenhanced protocol STUDY QUALITY: Good No evidence of acute infarction. No restricted diffusion. No unexpected paramagnetic substance deposition. Mild periventricular white matter disease. On this unenhanced examination, no distinct evidence of intracranial mass effect. No midline shift is evident. VESSELS: Signal voids are present in the major intracranial blood vessels. BRAIN VOLUME: Normal for age. VENTRICLES: No hydrocephalus. ORBITS: No acute findings. SELLA/ SUPRASELLAR: No acute findings at relatively thick sections. CP ANGLES: No acute findings at relatively thick sections. UPPER CERVICAL: No acute findings. PARANASAL SINUSES: No air-fluid levels. Modest symmetric mucosal thickening in the maxillary antra. Modest symmetric disease in the ethmoids. MASTOIDS: Minimal interspersed fluid bilaterally CALVARIUM: No acute finding OTHER: None. MR/MR head/brain wo con IMPRESSION: 1. No evidence of acute infarction. Electronically authenticated by: ZARINA SANDOVAL Date: 11/18/2023 09:33
[2023-11-18] MEDS: LISINOPRIL 5 MG TABLET 2.5 MG G-TUBE (09:22)
[2023-11-18] MEDS: ISOSORBIDE MONONITRATE 30 MG TAB.ER.24H PO (09:22)
[2023-11-18] MEDS: CLOPIDOGREL BISULFATE 75 MG TABLET PO (09:22)
[2023-11-18] MEDS: REMDESIVIR 200 MG in 0.9 % SODIUM CHLORIDE 250 ML 250 MG IV (09:23)
[2023-11-18] MEDS: METOPROLOL TARTRATE 25 MG TABLET PO (09:23)
[2023-11-18] MEDS: OXYBUTYNIN CHLORIDE 5 MG TAB XL 15 MG PO (09:23)
[2023-11-18] MEDS: ASPIRIN 81 MG TABLET.DR PO (09:23)
[2023-11-18] MEDS: 0.9 % SODIUM CHLORIDE 50 ML IV (10:28)
--- NOTE | 2023-11-18 12:47 | PM.DS1 ---
DS: Providers Provider Date of admission: 11/17/23 16:07 Primary care physician: BETINA SAMPSON Consults: 11/17/23 15:11 Occupational Therapy Eval and Treat Routine Reason for consultation: weakness Has provider been notified: No Physical Therapy Eval and Treat Routine Reason for consultation: weakness Has provider been notified: No DS: Diagnosis Discharge Diagnosis (1) COVID-19: (2) TIA (transient ischemic attack): (3) Hypertension: Qualifiers: Hypertension type: primary hypertension Qualified Code(s): I10 - Essential (primary) hypertension (4) Coronary artery disease: Qualifiers: Associated angina: without angina Coronary Disease-Associated Artery/Lesion type: [place] artery [place] vs. transplanted heart: [place] heart Qualified Code(s): I25.10 - Atherosclerotic heart disease of [place] coronary artery without angina pectoris DS: Summary Hospital Course Hospital Course: patient is a 78-year-old male with past medical history of coronary artery disease status post percutaneous stent approximately six years ago at [facility], hypertension, hyperlipidemia. 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 also is present at the time of admission exam and states that he has had carotid artery Dopplers within the last two years. She is uncertain when last echocardiogram was. Patient and agree that he was in normal state of health until today when suddenly he developed weakness of his bilateral lower extremities. He reports it was just difficult to maintain his balance and just felt like he was given a fall. He denies any dizziness or feeling of the room spinning. He denies any recent fevers chills or illnesses. He denies ever having a prior stroke before. states that she did not notice any facial droop or any issues communicating. Patient denies having any problem with his speech and just states that this is never happened to him before. 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 Patient did walk to the restroom with the nursing assistants and had more of a shuffling gait but did not appear weak with observation. He does note that his weakness has improved but he still feels unsteady when he stands. He denies any weakness in his hands or arms, he denies any numbness tingling in upper or lower extremities. He is not a smoker. Initial CT scan of the head was negative for any acute findings. Patient was admitted to the hospital for further workup of possible transient ischemic attack versus acute stroke. CTA of the brain showed no acute processes, MRI of the brain today also was negative for any acute stroke. Viral panel was positive for active COVID 19 and patient was given loading dose of Remdesivir 200 mg IV ?1. discussed with patient and the need for close cardiology follow-up with his solar system installer to complete workup with an echocardiogram. But I do think that patient's lower extremity weakness that he was experiencing was secondary to his acute viral illness. I will discharge discharge him today to follow up with his primary care physician with within 5-7 days and cardiology within 1-2 weeks. I will also place patient on Paxlovid for him to take for a five day completion. We discussed that he needs to hold his statin medication while he is taking the Paxlovid. he is to return to the hospital with any worsening conditions. Patient appears to be less weak and is able to ambulate around the room without issues. Neuro exam is normal this morning as well. Status at Discharge Functional status at discharge: independent ambulation Overall status at discharge: patient is progressing back to baseline Time Spent with Patient Time attestation: Total time spent providing and/or coordinating discharge services: Time spent: greater than 30 minutes Exam Narrative Exam Narrative: General: Patient is alert, and oriented to person, place and time with normal affect, proper hygiene, right clavicular deformity Skin: no visible rashes, or ulcers, some facial flushing noted Head: atraumatic, acephalic Eyes: PERRLA, no nystagmus present, conjunctiva clear, no scleral icterus Ears: diminished gross auditory acuity Nose: symmetric, no discharge, no maxillary or frontal sinus tenderness Mouth/Throat: no erythema, exudate, or tonsillar enlargement, normal dentition Neck: no masses palpated, normal thyroid, no JVD or audible carotid bruits Heart: Normal rate and rhythm, no murmurs/rubs/gallops Lungs: no audible wheezes, crackles and normal breath sounds all lung neumann Abdomen: Normal audible bowel sounds, no distension, No palpable masses, no organomegaly, no rebound/guarding/ or rigidity Musculoskeletal: no swelling bilateral lower extremities Lymph: no supraclavicular, axillary, or anterior/posterior cervical adenopathy Neuro: CN II-X grossly intact, normal sensation upper and lower extremities, normal strength in left and right upper and lower extremities. follows commands, speech is appropriate Constitutional Vital Signs, click to edit/add: Last Vital Signs Temp 99.4 F 11/18/23 07:56 Pulse 71 11/18/23 12:00 Resp 14 11/18/23 07:50 BP 169/87 H 11/18/23 07:42 Pulse Ox 95 11/18/23 07:42 O2 Del Method Room Air 11/18/23 07:56 DS: Data Data Completed and Pending Labs on day of discharge: Labs from last 24 hours 11/18/23 11/17/23 11/17/23 03:51 18:01 14:45 WBC 6.3 RBC 4.78 Hgb 14.6 Hct 44.2 MCV 92.5 MCH 30.5 MCHC 33.0 RDW 13.0 Plt Count 124 L MPV 9.5 Neut % (Auto) 69.2 Lymph % (Auto) 15.2 L [place] % (Auto) 14.2 H Eos % (Auto) 0.3 L Baso % (Auto) 0.6 Neut # (Auto) 4.3 Lymph # (Auto) 1.0 L [place] # (Auto) 0.9 H Eos # (Auto) 0.0 Baso # (Auto) 0.0 Abs Immat Gran (auto) 0.03 Imm/Tot Granulo (auto) 0.5 Sodium 144 Potassium 4.1 Chloride 108 H Carbon Dioxide 26.4 Anion Gap 13.7 BUN 23.0 H Creatinine 1.34 H Est GFR ( Amer) >60 Est GFR (Non-Af Amer) 51 L BUN/Creatinine Ratio 17.2 Glucose 99 Estimat Average Glucose 114 Hemoglobin A1c 5.6 Lactate Calcium 8.2 L Total Bilirubin 0.9 AST 22 ALT 24 Alkaline Phosphatase 59 Troponin I High Sens Total Protein 6.4 Albumin 3.1 L Globulin 3.3 Albumin/Globulin Ratio 0.9 Triglycerides 60 Cholesterol 121 LDL Cholesterol, Calc 68.0 VLDL Cholesterol 12.0 HDL Cholesterol 41 Cholesterol/HDL Ratio 3.0 TSH 0.792 Urine Color Yellow Urine Clarity Clear Urine pH 7.0 Ur Specific [place] 1.020 Urine Protein Negative Urine Glucose (UA) Negative Urine Ketones 15 A Urine Occult Blood Negative Urine Nitrite Negative Urine Bilirubin Negative Urine Urobilinogen 1.0 Ur Leukocyte Esterase Negative Adenovirus (PCR) Not detected C. pneumoniae DNA (PCR) Not detected Coronavirus Type OC43 Not detected Coronavirus Type HKU1 Not detected Coronavirus Type 229E Not detected Coronavirus Type NL63 Not detected Human Metapneumovir PCR Not detected M. pneumoniae (PCR) Not detected Parainfluenza PCR Not detected Parainfluenza 2 (PCR) Not detected Parainfluenza 3 (PCR) Not detected Parainfluenza 4 (PCR) Not detected RSV (RT-PCR) Not detected Entero/Rhino (PCR) Not detected SARS-CoV-2 (PCR) Detected A Bordetella pertussis (PCR) Not detected B parapertussis DNA PCR Not detected Influenza Type A (PCR) Not detected Influenza Type B (PCR) Not detected 11/17/23 12:13 WBC 9.2 RBC 4.84 Hgb 15.2 Hct 44.3 MCV 91.5 MCH 31.4 MCHC 34.3 RDW 12.8 Plt Count 155 MPV 10.1 Neut % (Auto) 83.7 H Lymph % (Auto) 6.5 L [place] % (Auto) 9.1 Eos % (Auto) 0.1 L Baso % (Auto) 0.3 Neut # (Auto) 7.7 H Lymph # (Auto) 0.6 L [place] # (Auto) 0.8 Eos # (Auto) 0.0 Baso # (Auto) 0.0 Abs Immat Gran (auto) 0.03 Imm/Tot Granulo (auto) 0.3 Sodium 140 Potassium 4.1 Chloride 104 Carbon Dioxide 25.8 Anion Gap 14.3 BUN 27.0 H Creatinine 1.37 H Est GFR ( Amer) >60 Est GFR (Non-Af Amer) 50 L BUN/Creatinine Ratio 19.7 Glucose 114 H Estimat Average Glucose Hemoglobin A1c Lactate 1.1 Calcium 8.8 Total Bilirubin 1.0 AST 21 ALT 34 Alkaline Phosphatase 69 Troponin I High Sens 8.2 Total Protein 7.1 Albumin 3.6 Globulin 3.5 Albumin/Globulin Ratio 1.0 Triglycerides Cholesterol LDL Cholesterol, Calc VLDL Cholesterol HDL Cholesterol Cholesterol/HDL Ratio TSH Urine Color Urine Clarity Urine pH Ur Specific [place] Urine Protein Urine Glucose (UA) Urine Ketones Urine Occult Blood Urine Nitrite Urine Bilirubin Urine Urobilinogen Ur Leukocyte Esterase Adenovirus (PCR) C. pneumoniae DNA (PCR) Coronavirus Type OC43 Coronavirus Type HKU1 Coronavirus Type 229E Coronavirus Type NL63 Human Metapneumovir PCR M. pneumoniae (PCR) Parainfluenza PCR Parainfluenza 2 (PCR) Parainfluenza 3 (PCR) Parainfluenza 4 (PCR) RSV (RT-PCR) Entero/Rhino (PCR) SARS-CoV-2 (PCR) Bordetella pertussis (PCR) B parapertussis DNA PCR Influenza Type A (PCR) Influenza Type B (PCR) Discharge Plan Discharge Disposition: Home, Self-Care Discharge Medications: New isosorbide mononitrate 30 mg Tablet Extended Release 24 Hr 30 mg PO DAILY Qty: 30 0RF oxybutynin chloride 5 mg Tablet Extended Release 24hr 15 mg PO DAILY Qty: 30 0RF lisinopril 5 mg Tablet 2.5 mg PO DAILY Qty: 30 0RF Paxlovid 300 mg (150 mg x 2)-100 mg tablets,dose pack See Rx Instructions .ROUTE .COMPLEX Qty: 30 0RF Rx Instructions: take TWO 150 mg tablets of nirmatrelvir with ONE 100 mg tablet of ritonavir twice daily for 5 days Continued metoprolol tartrate 25 mg tablet 25 mg PO DAILY aspirin [Adult Aspirin Regimen] 81 mg tablet,delayed release (DR/EC) 81 mg PO DAILY Held simvastatin 20 mg tablet 20 mg PO DAILY Hold Instructions: Resume on 11/24/23. please hold until completed Paxlovid Activity: increase activity as tolerated Diet: advance to your usual diet Forms: Portal Instructions Follow Up Appointments: Follow up with PCP 5-7 days and Cardiology 1-2 weeks for echocardiogram.
--- NOTE | 2023-11-18 13:40 | PC.NURSE ---
discharge instructions explained to and pt. both verbalized understanding. pts verbalized understanding when instructed to call for follow up appts. taken to exit via wheelchair, discharged to private vehicle with belongings.
--- NOTE | 2023-11-20 15:12 | CM.DCFOLLOWU ---
Person spoke with: patient's How are you feeling? well How is your pain? no pain Did you understand your discharge instructions? yes Do you have any questions about your discharge instructions? no Were you given any prescriptions at discharge? yes Were you able to get your prescriptions filled? not yet, they are waiting for call back from the pharmacy Do you understand how to take your medications as ordered? yes Do you have any questions about your follow up appointment and do you plan to keep your follow up appointment? yes has scheduled follow up with PCP Is there anything else that you would like to discuss? no Questions/Comments/Concerns/Other: N/A
== END 2023-11-18 13:40 | disposition home or self-care (01) ==
LOC: ER 15:11 → ICU 16:22
PROVIDERS: Admitting Provider Family Medicine; Emergency Provider Emergency Medicine Emergency Medical Services; PCP Family Medicine; Visit Provider Family Medicine
DX: G45.9 Transient cerebral ischemic attack, unspecified (principal); U07.1 COVID-19; I10 Essential (primary) hypertension; I25.10 Atherosclerotic heart disease of native coronary artery without angina pectoris; Z95.5 Presence of coronary angioplasty implant and graft; E78.5 Hyperlipidemia, unspecified; Z79.82 Long term (current) use of aspirin; Z87.01 Personal history of pneumonia (recurrent); Z79.899 Other long term (current) drug therapy; Z87.81 Personal history of (healed) traumatic fracture; Z98.890 Other specified postprocedural states; Z91.81 History of falling
CPT/HCPCS: 0202U; 36415; 70450; 70496; 70551; 71045; 80053; 80061; 81003; 83036; 83605; 84443; 84484; 85025; 87040; 93005; 96365; 99285; G0378; J0248; Q9967

== ENCOUNTER 2023-12-18 09:18 | Outpatient (OUT) | payer MEDICARE, OTHER, SELFPAY ==
--- NOTE | 2023-12-18 09:26 | XR_ITS ---
The [address] [address] Patient Name: JAMAICA CORRIGAN MRN: [id number] date: 1945 Sex: M Assigned Patient Location: [facility] Current Patient Location: [facility] Accession/Order Number: [id number] Exam Date: 12/18/2023 09:40 Report Date: 12/18/2023 13:37 At the request of: MARCELLO ELAM Procedure: XR abdomen 1V EXAMINATION: XR abdomen 1V HISTORY: kidney stone N20.0 COMPARISON: No relevant comparison available. FINDINGS: KIDNEY/URETER - RIGHT: No visible renal or ureteral calcifications. KIDNEY/URETER - LEFT: No visible renal or ureteral calcifications. PELVIS: No visible ureteral calcifications. Any visible calcifications favor phleboliths. BOWEL: No abnormal dilation or deviation. Moderate stool in the descending colon BONES: No acute abnormality. Moderate degenerative changes OTHER: Negative. No abnormal gaseous collections. XR/XR abdomen 1V IMPRESSION: No definite urinary tract calculi Electronically authenticated by: SLOAN SWANSON Date: 12/18/2023 13:37
--- OUTSIDE RECORDS SUMMARY | 2023-12-18 09:29 | XMS_ITS | CCD ---
Author Organization [facility] Care Team Providers Care Adobe Layer Name Role Phone PHYSICIAN, DEFAULT Unavailable Unavailable [...] MOUKARBEL, DR ALVAREZ Admitting Unavailable MOUKARBEL, DR ALVARZE Attending Unavailable ROSS, BETINA DONNA Primary Care Unavailable ROSS, BETINA DONNA Referring Unavailable MOUKARBEL, DR ALVAREZ Consulting Unavailable MOUKARBEL, DR ALVAREZ Admitting Unavailable MOUKARBEL, DR ALVAREZ Attending Unavailable ROSS, BETINA DONNA Primary Care Unavailable MOUKARBEL, DR ALVAREZ Consulting Unavailable MOUKARBEL, DR ALVAREZ Admitting Unavailable MOUKARBEL, DR ALVAREZ Attending Unavailable ROSS, BETINA DONNA Primary Care Unavailable MOUKARBEL, DR AVLAREZ Consulting Unavailable MOUKARBEL, DR ALVAREZ Admitting Unavailable MOUKARBEL, DR ALVAREZ Attending Unavailable ROSS, BETINA DONNA Primary Care Unavailable MOUKARBEL, DR ALVAREZ Admitting Unavailable MOUKARBEL, DR ALVAREZ Attending Unavailable ROSS, BETINA DONNA Primary Care Unavailable SYDNEE HERNANDEZ Attending Unavailable ANTONIO IGNACIO Attending Unavailable Betina Sampson Attending Unavailable Betina Sampson Attending Unavailable Betina Sampson Attending Unavailable Betina Sampson Attending Unavailable Betina Sampson Attending Unavailable Betina Sampson Attending Unavailable Betina Sampson Attending Unavailable Zachary CHUNG Attending Unavailable Betina Sampson Admitting Unavailable Betina Sampson Admitting Unavailable Betina Sampson Admitting Zachary Yanez Referring Zachary Yanez Attending Unavailable Zachary CHUGN Attending Unavailable Zachary CHUNG Attending Unavailable Allergies Allergy Classification Reported Allergen(s) Allergy Type Date of Onset Reaction(s) Facility (1 source) No Known Medication Allergies; Translations: [No Known Medication Allergies] Propensity to adverse reactions (disorder) [facility] Medications Current Medications Medication Drug [...] for 90 day(s), 90 EA, Refill(s) 1, [id number], 172, cm, 01/17/22 9:53:00 [...] day(s), # 90 tab(s), Refills(s) 0, Pharmacy: [facility], 172, cm, 01/17/22 9:53:00 [...] day(s), # 90 tab(s), Refills(s) 0, Pharmacy: [id number], 172, cm, 01/17/22 9:53:00 [...] disease (17 sources) Atherosclerotic heart disease of [place] coronary artery without angina pectoris; Translations: [Coronary [...] Documented Date Episodic/Chronic Other aftercare (1 source) snf (current) use of aspirin; Translations: [INTERMEDIATE (CURRENT) USE OF ASPIRIN] Onset: 12-14-2017 Episodic [...] Results Test Name Value Interpretation Reference Range [facility] 12-13-2023 ED [facility] Cardiovascular Coronary Artery Disease, Male Coronary artery disease (CAD) is a condition in which the arteries that lead to the heart (coronary arteries) become narrow or blocked. The narrowing or blockage can lead to decreased blood flow to the heart. Prolonged reduced blood flow can cause a heart attack (myocardial infarction, or ID). This condition may also be called coronary heart disease. CAD is the most common type of heart disease, and heart disease is the leading cause of in men. It is important to understand what causes CAD and how it is treated. What are the causes? CAD is most often caused by atherosclerosis. This is the buildup of fat and cholesterol (plaque) on the inside of the arteries. Over time, the plaque may narrow or block the artery, reducing blood flow to the heart. Plaque can also become weak and break off within a coronary artery and cause a sudden blockage. Other less common causes of CAD include: ? A blood clot or a piece of another substance that blocks the flow of blood in a coronary artery (embolism). ? A tearing of the artery (spontaneous coronary artery dissection). ? An enlargement of an artery (aneurysm). ? Inflammation (vasculitis) in the artery wall. What increases the risk? The following factors may make you more likely to develop this condition: ? Age. Men older than 45 years are at a greater risk of CAD. ? Family history of CAD. ? High blood pressure (hypertension). ? Diabetes. ? High cholesterol levels. ? Obesity. Other risk factors include: ? Tobacco use. ? Excessive alcohol use. ? Lack of exercise. ? A diet high in saturated and trans fats, such as fried food and processed meat. What are the signs or symptoms? Many people do not have any symptoms during the early stages of CAD. As the condition progresses, symptoms may include: ? Chest pain (angina). The pain can: ? Feel like crushing or squeezing, or like a tightness, pressure, fullness, or heaviness in the chest. ? Last more than a few minutes or can stop and recur. The pain tends to get worse with exercise or stress and to fade with rest. ? Pain in the arms, neck, jaw, ear, or back. ? Unexplained heartburn or indigestion. ? Shortness of breath. ? Nausea or vomiting. ? Sudden light-headedness. ? Sudden cold sweats. ? Fluttering or fast heartbeat (palpitations). How is this diagnosed? This condition is diagnosed based on: ? Your family and medical history. ? A physical exam. ? Tests. These may include: ? A test to check the electrical signals in your heart (electrocardiogram). ? Exercise stress test. This looks for signs of blockage when the heart is stressed with exercise, such as running on a treadmill. ? Pharmacologic stress test. This test looks for signs of blockage when the heart is being stressed with a medicine. ? Blood tests to check levels of cardiac enzymes such as troponin and creatine kinase. ? Coronary angiogram. This is a procedure to look at the coronary arteries to see if there is any blockage. During this test, a dye is injected into your arteries so they appear on an X-ray. ? Coronary artery CT scan. This scan helps detect calcium deposits in your coronary arteries. Calcium deposits are an indicator of CAD. ? A test that uses sound waves to take a picture of your heart (echocardiogram). How is this treated? This condition may be treated by: ? Healthy lifestyle changes to reduce risk factors. ? Medicines such as: ? Antiplatelet medicines such as clopidogrel or aspirin. These help to prevent blood clots. ? Nitroglycerin. ? Blood pressure medicines. ? Cholesterol-lowering medicine. ? Coronary angioplasty and stenting. During this procedure, a thin, flexible tube is inserted through a blood vessel and into a blocked artery. A balloon or similar device on the end of the tube is inflated to open up the artery. In some cases, a small, mesh tube (stent) is inserted into the artery to keep it open. ? Coronary artery bypass surgery. During this surgery, veins or arteries from other parts of the body are used to create a bypass around the blockage and allow blood to reach your heart. Follow these instructions at home: Medicines ? Take lonr-qke-tmxmhny and prescription medicines only as told by your health care provider. ? Do not take the following medicines unless your health care provider approves: ? NSAIDs, such as ibuprofen, naproxen, or celecoxib. ? Vitamin supplements that contain vitamin A, vitamin E, or both. Lifestyle ? Follow an exercise program approved by your health care provider. Ask your health care provider if cardiac rehab is appropriate. ? Maintain a healthy weight or lose weight as approved by your health care provider. ? Learn to manage stress or try to limit your stress. Ask your health care provider for suggestions if you need help. ? Get screened for depression and seek treatment, if needed. ? Do not use any (more content not included)... 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 Bradycardia CAD in [place] artery Chronic kidney disease, stage 3a Closed displaced fracture of shaft of right clavicle COVID Dyspnea on exertion Hard of hearing HLD (hyperlipidemia) Hospital discharge follow-up Hx of cardiac catheterization Mild diastolic dysfunction Mild persistent asthma without complication Primary hypertension Renal stone TIA on medication Vitamin D deficiency Historical No qualifying data Procedure/Surgical History Cystoscopic laser lithotripsy of ureteric calculus (05/24/2023), ESWL of kidney (05/03/2023), Cystoscopic insertion of ureteric stent (04/07/2023), Placement of stent in cardiac conduit (11/2017), Colonoscopy (2017), Carpal tunnel syndrome of left wrist, Carpal tunnel syndrome of right wrist, Kidney stone. Home Medications Aspir 81, 81 mg, Oral, Daily isosorbide mononitrate 30 mg ER Tab, 30 mg= 1 tab(s), Oral, qAM Lipitor 40 mg Tab, 40 mg= 1 tab(s), Oral, Daily Lopressor 25 mg oral tablet oxybutynin, 15 mg, Oral, Daily Allergies No Known Medication Allergies Social History Alcohol - Denies Alcohol Use, 01/17/2022 Substance Abuse - Denies Substance Abuse, 01/17/2022 Tobacco Never (less than 100 in lifetime) Tobacco Use:. Never Smokeless Tobacco Use:. Household tobacco concerns: No., 11/29/2023 Family History Diabetes mellitus type 2: Father. Screenings and Assessments 11/19/23 10:31:00 Result Name Value Comment Phone Call Monitoring Consent Agreed to continue call Phone Verification Patient Information Full name, street address and date of verified CM Program Enrollment Provides verbal consent for enrollment Goals and Interventions Care Plan Progress Note TCM#3- Spoke with patient and spouse Linda, on speaker phone. Patient states things are 'going good.' CN inquired how patients balance is, patient states 'everything is fine, balance is doing good.' Patient denies any falls. Patient notes with heavy exertion, mostly carrying heavy objects he gets SOB. Patient denies any CP. Patient and spouse believe this is Covid related and not heart. Patient spouse is going to call cardiology today, as they have not heard from Dr. Ignacio's office. Patient checks BP every now and then, has not checked it recently. Patient is eating and drinking okay. CN explained CCM program to patient and spouse. Spouse thinks this is a good thing for patient and he agreed, intake scheduled, 12/25/23 at 0900. Patient is aware this is the final TCM call. Patient denies any further questions or concerns. Communication Events Date: December 13, 2023 Method: Phone call Type: Outbound Duration (min): 8 Outcome: Case discussion Contact Type: trauma coordinator Contact Name: Tha Khalil Notes: TCM#3- See tcm note. Created By: Tha Khalil Date: December 06, 2023 Method: Phone call Type: Outbound Duration (min): 2 Outcome: Case discussion Contact Type: trauma coordinator Contact Name: Tha Khalil Notes: TCM#2- see tcm note. Created By: Tha Khalil Date: November 20, 2023 Method: Phone call Type: Outbound Duration (min): 9 Outcome: Case discussion Contact Type: trauma coordinator Contact Name: Tha Khalil Notes: TCM #1 f/u- spoke with Linda per pt request- see tcm #1 f/u note. Created By: Tha Khalil Date: November 20, 2023 Method: Phone call Type: Outbound Duration (min): 2 Outcome: Left message-person Contact Type: trauma coordinator Contact Name: Tha Khalil Notes: Spoke with patient, there was a bad connection, patient to call back, cn number provided. Created By: Tha Khalil Date: November 19, 2023 Method: Phone call Type: Outbound Duration (min): 4 Outcome: Case discussion Contact Type: trauma coordinator Contact Name: Tha Khalil Notes: TCM#1- see tcm note. 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 Bradycardia CAD in [place] artery Chronic kidney disease, stage 3a Closed displaced fracture of shaft of right clavicle COVID Dyspnea on exertion Hard of hearing HLD (hyperlipidemia) Hospital discharge follow-up Hx of cardiac catheterization Mild diastolic dysfunction Mild persistent asthma without complication Primary hypertension Renal stone TIA on medication Vitamin D deficiency Historical No qualifying data Procedure/Surgical History Cystoscopic laser lithotripsy of ureteric calculus (05/24/2023), ESWL of kidney (05/03/2023), Cystoscopic insertion of ureteric stent (04/07/2023), Placement of stent in cardiac conduit (11/2017), Colonoscopy (2017), Carpal tunnel syndrome of left wrist, Carpal tunnel syndrome of right wrist, Kidney stone. Home Medications Aspir 81, 81 mg, Oral, Daily isosorbide mononitrate 30 mg ER Tab, 30 mg= 1 tab(s), Oral, qAM Lipitor 40 mg Tab, 40 mg= 1 tab(s), Oral, Daily Lopressor 25 mg oral tablet oxybutynin, 15 mg, Oral, Daily Allergies No Known Medication Allergies Social History Alcohol - Denies Alcohol Use, 01/17/2022 Substance Abuse - Denies Substance Abuse, 01/17/2022 Tobacco Never (less than 100 in lifetime) Tobacco Use:. Never Smokeless Tobacco Use:. Household tobacco concerns: No., 11/29/2023 Family History Diabetes mellitus type 2: Father. Screenings and Assessments 11/19/23 10:31:00 Result Name Value Comment Phone Call Monitoring Consent Agreed to continue call Phone Verification Patient Information Full name, street address and date of verified CM Program Enrollment Provides verbal consent for enrollment Goals and Interventions Care Plan Progress Note TCM#2- Spoke with patient spouse Linda, at patient request due to [facility]. Spouse states patient has recovered really well. States he is getting around good. Denies patient to have any difficulty breathing. Denies any concerns at this time. Denies need for medications refills, [facility] Patient/spouse deny any further questions or concerns. Communication Events Date: December 06, 2023 Method: Phone call Type: Outbound Duration (min): 2 Outcome: Case discussion Contact Type: trauma coordinator Contact Name: Tha Khalil Notes: TCM#2- see tcm note. Created By: Tha Khalil Date: November 20, 2023 Method: Phone call Type: Outbound Duration (min): 9 Outcome: Case discussion Contact Type: trauma coordinator Contact Name: Tha Khalil Notes: TCM #1 f/u- spoke with Linda per pt request- see tcm #1 f/u note. Created By: Tha Khalil Date: November 20, 2023 Method: Phone call Type: Outbound Duration (min): 2 Outcome: Left message-person Contact Type: trauma coordinator Contact Name: Tha Khalil Notes: Spoke with patient, there was a bad connection, patient to call back, cn number provided. Created By: Tha Khalil Date: November 19, 2023 Method: Phone call Type: Outbound Duration (min): 4 Outcome: Case discussion Contact Type: trauma coordinator Contact Name: Tha Khalil Notes: TCM#1- see tcm note. Created By: Tha Khalil [facility] 12-05-2023 Lab Reports [id number] [facility] Ambulatory Visit Summaryon 0 11-29-2023 Ambulatory Visit Summary RICARDO CORRIGAN :1945 Visit Date:11/29/2023 Ambulatory Visit Instructions Your Diagnosis Hospital discharge follow-up TIA on medication COVID Non-smoker BMI 32.0-32.9,adult Your Care Team Attending Physician - Betina Sampson MD Primary Care Physician - Betina Sampson MD This Is Your Medications List aspirin (Aspir 81) isosorbide mononitrate (isosorbide mononitrate 30 mg ER Tab) metoprolol (Lopressor 25 mg oral tablet) oxybutynin simvastatin (simvastatin 20 mg Tab) Procedures Performed Cystoscopic laser lithotripsy of ureteric calculus (05/24/2023), ESWL of kidney (05/03/2023), Cystoscopic insertion of ureteric stent (04/07/2023), Placement of stent in cardiac conduit (11/2017), Colonoscopy (2017), Carpal tunnel syndrome of left wrist, Carpal tunnel syndrome of right wrist, Kidney stone. Discharge Vitals Heart Rate (Peripheral) 66 Respiratory Rate 18 Blood Pressure 122/74 Height 167.0 cm Height 66 in Weight 96.0 kg Weight 211.2 lb BMI 34.42 What to do next Scheduled Follow-Up Appointments Sunday 10:15 AM EDT With: PAPA DELONG, Zachary Meléndez Where: [facility] Invalid Interpretation Code [address] [place] [address]- \.br\ Sunday 8:00 AM EDT \.br\ With:\.br\ Where: [facility] Medicine Office/Clini c Noteon 11-29-2023 Family Medicine Office/Clinic Note HPI Staff Ricardo is a 78 year old male presenting for hospital follow up TCM: Hospital: [place] Admission date: 11/17/23 Discharge date: 11/18/23 Symptoms the patient presented with: TIA and covid MRI no infarct Current concerns: pt states he is feeling better. states she is making appointment with cardiology for an Echo that needs to be done. Pt doesn't have a neurologist at this time. History of Present Illness - Here for TCM. - No issues today - Feels great - No complaints. Review of Systems PHQ Score Initial Depression Screen Score: 0 SCORE Physical Exam Vitals & Measurements HR: 66(Peripheral) RR: 18 BP: 122/74 SpO2: 96% HT: 66 in HT: 167.0 cm WT: 96.0 kg WT: 211.2 lb BMI: 34.42 General: alert, no acute distress ENMT: oral mucosa moist, Cardiovascular: regular rate and rhythm, normal peripheral perfusion Respiratory: Lungs expiratory wheezes, respirations non labored Extremities: no deformity, no trauma Neurological: oriented x 4, LOC appropriate for age, CN II-XII intact, motor strength equal & normal bilaterally, speech normal Abdomen: Soft, Nontender, Non-distended, + BS Assessment/Plan 1. Hospital discharge follow-up (Z09: Encounter for follow-up examination after completed treatment for conditions other than malignant neoplasm) - D/C summary reviewed - TCM reviewed - All needs are met at this time. - NO need for PT/OT 2. TIA on medication (G45.9: Transient cerebral ischemic attack, unspecified) - Stable. - Will monitor to see if he needs a neurologist 3. COVID (U07.1: COVID-19) - Resolved - Minimal wheezing today. - If this continues please be seen sooner. 4. Non-smoker (Z78.9: Other specified health status) - Please continue to not smoke 5. BMI 32.0-32.9,adult (Z68.32: Body mass index [BMI] 32.0-32.9, adult) - BMI education given. Orders: atorvastatin, 40 mg = 1 tab(s), Oral, Daily, # 90 tab(s), Refills(s) 0, Pharmacy: [facility], 167, cm, 11/29/23 10:50:00 EST, Height/Length Dosing, 96, kg, 11/29/23 10:50:00 EST, Weight Dosing lisinopril, 2.5 mg = 1 tab(s), Oral, Daily, # 90 tab(s), Refills(s) 0, Pharmacy: [id number], 172, cm, 11/13/22 8:47:00 EST, Height/Length Dosing, 95.1, kg, 11/13/22 9:01:00 EST, Weight Dosing Follow-up No qualifying data available Patient Education BMI for Adults 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 Bradycardia CAD in [place] artery Chronic kidney disease, stage 3a Closed displaced fracture of shaft of right clavicle COVID Dyspnea on exertion Hard of hearing HLD (hyperlipidemia) Hospital discharge follow-up Hx of cardiac catheterization Mild diastolic dysfunction Mild persistent asthma without complication Primary hypertension Renal stone TIA on medication Vitamin D deficiency Historical No qualifying data Procedure/Surgical History Cystoscopic laser lithotripsy of ureteric calculus (05/24/2023), ESWL of kidney (05/03/2023), Cystoscopic insertion of ureteric stent (04/07/2023), Placement of stent in cardiac conduit (11/2017), Colonoscopy (2017), Carpal tunnel syndrome of left wrist, Carpal tunnel syndrome of right wrist, Kidney stone. Medications Aspir 81, 81 mg, Oral, Daily isosorbide mononitrate 30 mg ER Tab, 30 mg= 1 tab(s), Oral, qAM Lipitor 40 mg Tab, 40 mg= 1 tab(s), Oral, Daily Lopressor 25 mg oral tablet oxybutynin, 15 mg, Oral, Daily Allergies No Known Medication Allergies Social History Alcohol - Denies Alcohol Use, 01/17/2022 Substance Abuse - Denies Substance Abuse, 01/17/2022 Tobacco Never (less than 100 in lifetime) Tobacco Use:. Never Smokeless Tobacco Use:. Household tobacco concerns: No., 11/29/2023 Family History Diabetes mellitus type 2: Father. [...] SARS-CoV-2 (COVID-19) Ad26 vaccine 11/30/2020 Recorded Normal [facility] Comment on above: Result Comment: Elec tronically Signed By: Oz DELONG, Betina Walker.br\Date and Time Signed: 11/29/23 11:04 EST Pathology Noteon 11-29-2023 Pathology Note [id number] Normal [facility] Patient Educationon 11-29-19 24 Patient Education Nutrition BMI for Adults What is BMI? Body mass index (BMI) is a number that is calculated from a person's weight and height. BMI can help estimate how much of a person's weight is composed of fat. BMI does not measure body fat directly. Rather, it is an alternative to procedures that directly measure body fat, which can be difficult and expensive. BMI can help identify people who may be at higher risk for certain medical problems. What are BMI measurements used for? BMI is used as a screening tool to identify possible weight problems. It helps determine whether a person is obese, overweight, a healthy weight, or underweight. BMI is useful for: ? Identifying a weight problem that may be related to a medical condition or may increase the risk for medical problems. ? Promoting changes, such as changes in diet and exercise, to help reach a healthy weight. BMI screening can be repeated to see if these changes are working. How is BMI calculated? BMI involves measuring your weight in relation to your height. Both height and weight are measured, and the BMI is calculated from those numbers. This can be done either in [place] or metric measurements. Note that charts and online BMI calculators are available to help you find your BMI quickly and easily without having to do these calculations yourself. To calculate your BMI in [place] measurements: 1. Measure your weight in pounds (lb). 2. Multiply the number of pounds by 703. ? For example, for a person who weighs 180 lb, multiply that number by 703, which equals 126,540. 3. Measure your height in inches. Then multiply that number by itself to get a measurement called inches squared. ? For example, for a person who is 70 inches tall, the inches squared measurement is 70 inches x 70 inches, which equals 4,900 inches squared. 4. Divide the total from step 2 (number of lb x 703) by the total from step 3 (inches squared): 126,540 ? 4,900 = 25.8. This is your BMI. To calculate your BMI in metric measurements: 1. Measure your weight in kilograms (kg). [...] 3.1 = 22.6. This is your BMI. What do the results mean? BMI charts are used to identify whether you are underweight, normal weight, overweight, or obese. The following guidelines will be used: ? Underweight: BMI less than 18.5. ? Normal weight: BMI between 18.5 and 24.9. ? Overweight: BMI between 25 and 29.9. ? Obese: BMI of 30 or above. Keep these notes in mind: ? Weight includes both fat and muscle, [...] the same way for men and women. Where to find more information For more information about BMI, including tools to quickly calculate your BMI, go to these websites: ? Centers for Disease Control and Prevention: www.cdc.gov ? [place] [employer]: www.heart.org ? National Heart, Lung, and Blood [place]: www.nhlbi.nih.gov Summary ? Body mass index (BMI) is a number that is calculated from a person's weight and height. ? BMI may help estimate how much of a person's weight is composed of fat. BMI can help identify those who may be at higher risk for certain medical problems. ? BMI can be measured using [place]ian measurements or metric measurements. ? BMI charts are used to identify whether you are underweight, normal weight, overweight, or obese. This information is not intended to replace advice given to you by your health care provider. Make sure you discuss any questions you have with your health care provider. Document Revised: 06/02/2020 Document Reviewed: 04/09/2020 [employer] Patient Education ? 2022 [employer] [facility] ED Note-Physicianon 11-21-19 ED Note-Physician [id number]#1.00TIFF [facility] RAD - CT Reporton 11-21-[address] RAD - CT Report [id number]#1.00TIFF [facility] RAD - CT Report [id number]#1.00TIFF [facility] RAD - MISCon 11-21-2023 RAD - MISC [id number]#1.00TIFF [facility] RAD - MRI Reporton RAD - MRI Report [id number]#1.00TIFF Normal [facility] Population Healthon 11-20-19 Population Health Case Information Case Priority: None Programs: -- Referral Source: Geological Engineering Teacher Referral Reason: Care coordination Case Type: Transition Care Management Risk Score: -- Case Status: Enrolled (November 19, 2023) Date Assigned: November 19, 2023 Assigned By: Tha Khalil Date Enrolled: November 19, 2023 Assigned Primary Personnel: Tha Khalil Assigned Secondary Personnel: -- Case Physician: Betina Sampson MD Problems Ongoing 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 Home Medications Aspir 81, 81 mg, Oral, [...] Smokeless Tobacco Use:. Household tobacco concerns: No., 07/05/2023 Family History Diabetes mellitus type 2: Father. Screenings and Assessments 11/19/23 10:31:00 Result Name Value Comment Phone Call Monitoring Consent Agreed to continue call Phone Verification Patient Information Full name, street address and date of verified CM Program Enrollment Provides verbal consent for enrollment Goals and Interventions Care Plan Progress Note TCM#1- Follow up- Spoke with spouse Linda per pt request- answers provided to the following questions. Are you having any stomach upset, diarrhea or constipation? none How are you sleeping? sleeping okay per spouse, Linda Are you having any pain? none Patient states he is doing a lot better. Note he was unable to obtain paxlovid RX d/t cost $1,700. Patient spouse reached out to [facility] on 11/19 and they have sent the rx overnight. Patient has not received Rx at this time. Spouse is going to make follow up calls yet this afternoon. Patient/ spouse to call back if any issues obtaining paxlovid. Medications reconciled with patient spouse, EHR, and D/C list. Reviewed the following appointment with patient/ spouse: TCM f/u 11/[address] Sampson at 1100. Patient denies any further questions or concerns. Communication Events Date: November 20, 2023 Method: Phone call Type: Outbound Duration (min): 9 Outcome: Case discussion Contact Type: trauma coordinator Contact Name: Tha Khalil Notes: TCM #1 f/u- spoke with Linda per pt request- see tcm #1 f/u note. Created By: Tha Khalil Date: November 20, 2023 Method: Phone call Type: Outbound Duration (min): 2 Outcome: Left message-person Contact Type: trauma coordinator Contact Name: Tha Khalil Notes: Spoke with patient, there was a bad connection, patient to call back, cn number provided. Created By: Tha Khalil Date: November 19, 2023 Method: Phone call Type: Outbound Duration (min): 4 Outcome: Case discussion Contact Type: trauma coordinator Contact Name: Tha Khalil Notes: TCM#1- see tcm note. 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 Home Medications Aspir 81, 81 mg, Oral, [...] Smokeless Tobacco Use:. Household tobacco concerns: No., 07/05/2023 Family History Diabetes mellitus type 2: Father. Screenings and Assessments 11/19/23 10:31:00 Result Name Value Comment Phone Call Monitoring Consent Agreed to continue call Phone Verification Patient Information Full name, street address and date of verified CM Program Enrollment Provides verbal consent for enrollment Goals and Interventions Care Plan Progress Note Admit Date: 11/17 Date of Discharge: 11/18 Follow-up appointment scheduled? no- patient request a call back tomorrow 11/20 to arrange follow up Did you understand your discharge instructions? yes Are you able to follow them? yes Did you receive new medications? yes, isosorbide mono. 30 mg qd, oxybutynin 15 mg qd, paxlovid per package instructions- hold simvastatin until paxlovid complete 11/24/23 Have you filled the Rx's? not yet, picking up today, pharmacy close when pt was d/c Are you taking them as prescribed? picking up rx today Are you having difficulty eating or swallowing your pills? no Are you having any stomach upset, diarrhea or constipation? will follow up 11/20 How are you sleeping? will follow up 11/20 Are you having any pain? will follow up 11/20 Do you have everything you need at home to care for yourself? yes Do you have Home Health? no Called patient for initial Transitional Care Management Program call. Readmission risk unavailable. Reviewed d/c instructions and dx of: Covid-19, TIA, HTN, CAD with patient. Reviewed purpose and side effects of new rx's with patient. Patient states he is doing 'okay.' Reports he is currently out and about, just went up a flight of stairs and states 'I'm a little short of my breath.' Patient states otherwise he is breathing okay. Patient reports his balance is pretty good. Patient ambulates without cane or walker. Denies any falls. Patient does request a call back tomorrow to set up follow up appointment. CN explained TCM program, patient states he did not have way to record contact info, CN will provide during f/u call on 11/20. Patient denies any further questions or concerns. Communication Events Date: November 19, 2023 Method: Phone call Type: Outbound Duration (min): 4 Outcome: Case discussion Contact Type: trauma coordinator Contact Name: Tha Khalil Notes: TCM#1- see tcm note. Created By: Tha Khalil [facility] ED Note-Physicianon 09-25-19 ED Note-Physician [id number]#1.00TIFF [facility] RAD - MISCon 09-25-2023 RAD - MISC [id number]#1.00TIFF [facility] Office Visiton 08-08-2023 Follow-up visit [id number] Ricardo Corrigan 1945 M Date Provider Department Center 08/08/2023 [facility] No family history on file Level of Service:66952 NC OFFICE/OUTPATIENT ESTABLISHED MOD MDM 30-39 MIN Reason for Visit and Comments: Follow-up [556369] [facility] Family Medicine Office/Clini c Noteon 07-06-2023 Family [...] of clutter to prevent tripping and/or falling. [place] Advance Directives reviewed, patient has copy at [...] this time. Will have labs completed with [facility]. [facility] [...] mass index (more content not included)... [facility] Comment on above: Result Comment: Elec tronically Signed By: Juancho GILLIS DO, FAAFP\.br\Date and Time Signed: 07/06/23 07:34 EDT\.br\Electronically Co-Signed By: Remi, Tha R\.br\Date and Time Co-Signed: 07/05/23 09:25 EDT Ambulatory [...] DELONG, Zachary Meléndez Where: [facility] [place] [id number] \.br\ Medications\.br \ What How Much When [...] chronic kidney disease\.br\ Bradycardia\.br \ CAD in [place] artery\.br\ Chronic kidney disease, stage 3a\.br\ Closed [...] instructions at home:\.br\ Medicines\.br\ ? \.br\ Take tmpj-blz-mebagm r and prescription medicines only as told [...] of hard liquor (44 mL).\.br\ ? \.br\ [facility] Patient Educationon 07-05-20 23 Patient Education [...] night-lights. ? Place frequently used items in udhl-xv-eipul places. Lower the shelves around your home [...] the way. ? Do not use floor sammarinese or wax that makes floors slippery. If [...] include working with a physical therapist or operational trainer to improve your strength, balance, and endurance. Where to find more information ? Centers for Disease Control and Prevention, [place]: www.cdc.gov ? National [place] on Aging: www.kai.nih.gov Contact a health care [...] your health ca (more content not included)... Normal [facility] 07-05-2023 Screens [id number]#1.00TIFF [facility] Ambulatory Visit Summaryon 0 06-11-2023 Ambulatory [...] DELONG, Zachary Meléndez Where: [facility] Family Medicine Office/Clini c Noteon [...] E&M of Est. Patient Low 20-29 Min 69833 Remove impacted ear wax- 70212 2. BMI 30.0-30.9,adult (Z68.30: Body mass index [BMI] 30.0-30.9, adult) - BMI education given Ordered: E&M of Est. Patient Low 20-29 Min 18918 Remove impacted ear wax- 46908 3. Class 1 obesity due to excess calories in adult (E66.09: Other obesity due to excess calories) - As above Ordered: E&M of Est. 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 Bradycardia CAD in [place] artery Chronic kidney disease, stage 3a Closed [...] SARS-CoV-2 (COVID-19) Ad26 vaccine 11/30/2020 Recorded [facility] Comment on above: Result Comment: Elec tronically Signed By: Oz DELONG, Betina Walker.br\Date and Time Signed: 06/11/23 12:15 EDT Patient Correspondenceon Patient Correspondence [id number]#1.00CD:127 [facility] RAD - MISCon 06-06-2023 RAD - MISC [id number]#1.00CD:127 [facility] Lab Reportson 06-05-2023 Lab Reports [id number]#1.00CD:127 [facility] RAD - MISCon 05-28-2023 RAD - MISC [id number]#1.00CD:127 [facility] Operative Reporton Operative Report [id number]#1.00CD:127 [facility] Consent for Procedure/Surger yon 05-22-2023 Consent for Procedure/Surgery [id number]#1.00CD:127 [facility] Consent for Procedure/Surgery [id number]#1.00CD:127 [facility] Operative Reporton Operative Report [id number]#1.00CD:127 [facility] Ambulatory Visit Summaryon 0 05-14-2023 Ambulatory Visit Summary RICARDO CORRIGAN :1945 Visit Date:05/14/2023 Ambulatory Visit Instructions Your Diagnosis Renal stone Hard of hearing Primary hypertension Chronic kidney disease, stage 3a Bradycardia CAD in [place] artery BMI 30.0-30.9,adult Class 2 obesity due [...] 3a chronic kidney disease Bradycardia CAD in [place] artery Chronic kidney disease, stage 3a Closed displaced fracture of shaft of right clavicle Dyspnea on exertion Hard of hearing HLD (hyperlipidemia) Hx of cardiac catheterization Mild diastolic dysfunction Mild persistent asthma without complication Primary hypertension Renal stone Vitamin D deficiency [facility] Family Medicine Office/Clini c Noteon 05-14-2023 [...] Hg (Most Recent) 3074F 6. CAD in [place] artery (I25.10: Atherosclerotic heart disease of [place] coronary artery without angina pectoris) - Denies [...] 3a chronic kidney disease Bradycardia CAD in [place] artery Chronic kidney disease, stage 3a Closed displaced fracture of shaft of right clavicle Dyspnea on exertion Hard of hearing HLD (hyperlipidemia) Hx of cardiac catheterization Mild diastolic dysfunction Mild persistent asthma without complication Primary hypertension Renal stone Vitamin D deficiency Historical No qualifying data Procedure/Surgical History Placement of stent in cardiac conduit (12/11 (more content not included)... [facility] Comment on above: Result Comment: Elec tronically Signed By: Oz DELONG, Betina Walker.br\Date and Time Signed: 05/14/23 07:10 EDT RAD - MISCon 05-12-2023 RAD - MISC [id number]#1.00CD:127 [facility] RAD - MISCon 05-10-2023 RAD - MISC [id number]#1.00CD:127 [facility] Population Healthon 05-07-20 Population Health Case Information Case Priority: None Programs: -- Referral Source: Geological Engineering Teacher Referral Reason: Care coordination Case Type: Transition Care Management Risk Score: -- Case Status: Enrolled (April 16, 2023) Date Assigned: April 16, 2023 Assigned By: Komal Walker RN Date Enrolled: April 16, 2023 Assigned Primary Personnel: Komal Walker RN Assigned Secondary Personnel: -- Case Physician: Betina Sampson MD Problems Ongoing 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 Sampson on 05/14/23, see FT summary note. Created By: Komal Walker RN Date: April 30, 2023 Method: Phone call Type: Outbound Duration (min): 3 Outcome: Case discussion Contact Type: trauma coordinator Contact Name: Komal Walker RN Notes: TCM #3, see Ft summary note. Created By: Komal Walker RN Date: April 20, 2023 Method: Phone call Type: Outbound Duration (min): 6 Outcome: Case discussion Contact Type: trauma coordinator Contact Name: Komal Walker RN Notes: TCM #2, see message center note. Created By: Komal Walker RN Date: April 16, 2023 Method: Phone call Type: Outbound Duration (min): 5 Outcome: Case discussion Contact Type: trauma coordinator Contact Name: Komal Walker RN Notes: TCM #1, see FT summary note. Created By: Komal Walker RN [facility] 05-07-2023 [facility] [id number]#1.00CD:127 [facility] 04-30-20 [facility] Case Information Case Priority: None Programs: -- Referral Source: Geological Engineering Teacher Referral Reason: Care coordination Case Type: Transition Care Management Risk Score: -- Case Status: Enrolled (April 16, 2023) Date Assigned: April 16, 2023 Assigned By: Komal Walker RN Date Enrolled: April 16, 2023 Assigned Primary Personnel: Komal Walker RN Assigned Secondary Personnel: -- Case Physician: Betina Sampson MD Ongoing 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 Bradycardia CAD in [place] artery Chronic kidney disease, stage 3a Closed [...] (min): 3 Outcome: Case discussion Contact Type: trauma coordinator Contact Name: Komal Walker RN Notes: TCM #3, see Ft summary note. Created By: Komal Walker RN Date: April 20, 2023 Method: Phone call Type: Outbound Duration (min): 6 Outcome: Case discussion Contact Type: trauma coordinator Contact Name: Komal Walker RN Notes: TCM #2, see message center note. Created By: Komal Walker RN Date: April 16, 2023 Method: Phone call Type: Outbound Duration (min): 5 Outcome: Case discussion Contact Type: trauma coordinator Contact Name: Komal Walker RN Notes: TCM #1, see FT summary note. Created By: Komal Walker RN [facility] Family Medicine Office/Clini c Noteon 04-24-2023 Family Medicine Office/Clinic Note Chief Complaint hospital follow up HPI Staff Patient presents for [facility] hospital follow up Admitted: 04/07/23 Discharged: 04/13/23 [...] with voice recognition artificial intelligence software, specifically [employer] and or [employer]. Substitutions may have occurred due to the inherent limitations of voice recognition and artificial intelligence software. Documentation services were performed after patient or guardian consented to allow [employer] to record this visit. RICKIE event specialist food demonstrator and provider reviewed before signing. 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 [facility] Comment on above: Result Comment: Elec [...] Sampson MD Primary Care Physician - Betina Samspon MD This Is Your Medications List aspirin [...] Appointments Sunday 8:00 AM EDT With: Where: [facility] Normal [address] [place] [address]- \.br\ Medications\.br \ What How Much When [...] chronic kidney disease\.br\ Bradycardia\.br \ CAD in [place] artery\.br\ Chronic kidney disease, stage 3a\.br\ Closed displaced fracture of shaft of right clavicle\.br\ Dyspnea on exertion\.br\ HLD (hyperlipidemia )\.br\ Hx of cardiac catheterization \.br\ Mild diastolic dysfunction\.br \ Mild persistent asthma without complication\.b r\ Primary hypertension\.b r\ Renal stone\.br\ Vitamin D deficiency\.br\ \.br\ [facility] 04-23-2023 [facility] [id number]#1.00CD:127 Normal [facility] [id number]:127 Normal [facility] [id number]#1.00CD:127 [facility] Consent for Procedure/Surger yon 04-19-2023 Consent for Procedure/Surgery [id number]#1.00CD:127 [facility] ECG 12-Leadon 04-18-2023 ECG 12-Lead [id number]#1.00CD:127 [facility] Lab Reportson 04-18-2023 Lab Reports [id number]#1.00CD:127 [facility] - [facility] [id number]#1.00CD:127 [facility] 04-17-2023 RAD - MIS [id number]#1.00CD:127 [facility] Population Health 04-16-20 Population Health Case Information Case Priority: None Programs: -- Referral Source: Geological Engineering Teacher Referral Reason: Care coordination Case Type: Transition Care Management Risk Score: -- Case Status: Enrolled (April 16, 2023) Date Assigned: April 16, 2023 Assigned By: Komal Walker RN Date Enrolled: April 16, 2023 Assigned Primary Personnel: Komal Walker RN Assigned Secondary Personnel: -- Case Physician: Betina Sampson MD Problems Ongoing 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 Bradycardia CAD in [place] artery Chronic kidney disease, stage 3a Closed [...] Care Plan Progress Note Admit Date: 04/07/23 [facility] Date of Discharge: 04/13/23 Follow-up appointment scheduled? [...] 04/19/23 for stent and stone removal at [facility]. Reviewed discharge instructions and medications reconciled with [...] (min): 5 Outcome: Case discussion Contact Type: trauma coordinator Contact Name: Komal Walker RN Notes: TCM #1, see FT summary note. Created By: Komal Walker RN [facility] Consent for Procedure/Surger yon 04-13-2023 Consent for Procedure/Surgery [id number]:127 [facility] Insurance Correspondence Off iceon 04-13-2023 Insurance Correspondence Office [id number]#1.00CD:127 [facility] Lab Reportson 04-13-2023 Lab Reports [id number]#1.00CD:127 [facility] Correspo ndenceon 04-12-[address] [facility] Correspondence [id number]#1.00CD:127 [facility] Correspondence [id number]#1.00CD:127 [facility] RAD - CT Reporton 04-12-[address] - [address] Report [id number]#1.00CD:127 [facility] Consultation Noteon 04-11-20 23 Consultation Note [id number]#1.00CD:127 [facility] Operative Reporton 3 Operative Report [id number]#1.00CD:127 [facility] Office Visiton 01-05-2023 Follow-up visit [id number] Ricardo Corrigan 1945 M Date Provider Department Center 01/05/2023 SYDNEE DANIELS CARD [facility] No family history on file Level of Service:04243 NC OFFICE/OUTPATIENT ESTABLISHED MOD MDM 30-39 MIN Reason for Visit and Comments: Coronary Artery Disease [187] Hypertension [694455] Hyperlipidemia [182] Normal [facility] CHEMISTRYOrdered By: SYSTEM SYSTEM on 11-13-2022 Albumin [Mass/Vol] 4.0 g/dL Normal 3.3 - 5.0 gm/dL F [facility] Remisol Albumin/Globulin [Mass ratio] 1.3 {ratio} Normal [...] rate/Area] 59 mL/min/1.73 m2 Normal >=59mL/min/1.73 m2 FT Chem S Globulin (S) [Mass/Vol] 3.0 g/dL Normal 1.4 - 4.0 gm/dL [facility] Remisol Glucose [Mass/Vol] 108 mg/dL Normal 55 - 199 mg/dL [facility] Remisol Potassium [Moles/Vol] 4.5 mmol/L Normal 3.5 - 5.3 mmol/L [facility] Remisol Protein [Mass/Vol] 7.0 g/dL Normal 6.0 - 7.8 gm/dL F [facility] Remisol Sodium [Moles/Vol] 140 mmol/L Normal 135 - 145 mmol/L [facility] Remisol Triglyceride [Mass/Vol] 157 mg/dL High <=149mg/dL [facility] Remisol TSH Qn 2.22 m[IU]/L Normal 0.34 - 5.60 mcIU/mL [facility] Remisol Urea nitrogen [Mass/Vol] 27 mg/dL High 5 - 21 mg/dL [facility] Remisol Urea nitrogen/Creatinin e [Mass ratio] 22 mg/mg High 10 - 20 [facility] Remisol HEMATOLOGYOrdered By: SYSTEM SYSTEM on 11-13-2022 Basophils/100 [...] 57.4 % Normal 36.0 - 75.0 % [facility] HemeAutoSS Neutrophils/Leukoc ytes Auto (Bld) [Pure # fraction] 3.7 E9/L Normal 2.0 - 7.5 E9/L [facility] HemeAutoSS HEMATOLOGYOrdered By: Jamari Roque on 11-13-2022 Erythrocyte distribution width (RBC) [Ratio] 13.8 % Normal 10.9 - 14.2 % [facility] HemeAutoSS Hematocrit (Bld) [Volume fraction] 50.0 % High 37.7 - 49.0 % [facility] HemeAutoSS Hemoglobin (Bld) [Mass/Vol] 16.0 g/dL Normal 13.5 - 17.5 gm/dL [facility] HemeAutoSS MCH (RBC) [Entitic mass] 30.1 pg Normal 27.0 - 34.0 pg [facility] HemeAutoSS MCHC (RBC) [Mass/Vol] 31.9 g/dL Normal 31.4 - 36.0 gm/dL [facility] HemeAutoSS MCV (RBC) [Entitic vol] 94.3 fL Normal 80.0 - 100.0 fL [facility] HemeAutoSS Platelet mean volume (Bld) [Entitic vol] 8.1 fL Normal 6.4 - 10.8 fL [facility] HemeAutoSS Platelets (Bld) [#/Vol] 160.0 E9/L Normal 150.0 - 500.0 E9/L [facility] HemeAutoSS RBC (Bld) [#/Vol] 5.3 E12/L Normal 4.3 - 5.9 E12/L [facility] HemeAutoSS WBC corrected for nucl RBC Auto (Bld) [#/Vol] 6.4 E9/L Normal 4.0 - 11.0 E9/L [facility] HemeAutoSS ECHOCARDIO M/2D COMPLETEon 1 09-25-2021 ECHOCARDIO M/2D COMPLETE Patient: RICARDO CORRIGAN Exam Date: 07/26/2022 : 1945 Gender:M Ordering : DR ANTONIO IGNACIO M.D. Admission #: [id number] Family : DR. BETINA SAMPSON . Order #: [id number] CLICK HERE TO VIEW EXAM ECHOCARDIOGRAM REPORT [...] Antonio Ignacio M.D. on 07/26/2022 at 12:05 Normal [facility] CBC AUTO DIFFon 04-27-2022 BASO # 0.1 103/ul Normal 0.0-0.1 [facility] Comment on above: Performed By: #### C BC #### [facility] [address] [address] [address] Kimber Rascon Basophils/100 WBC (Bld) 0.7 % Normal 0.2-2.0 [facility] Comment on above: Performed By: #### C BC #### [facility] [address] [place] [address] Dr. Kimber Rascon EO # 0.2 103/ul Normal 0.0-0.7 [facility] Comment on above: Performed By: #### C BC #### [facility] [address] [address] [address] Kimber Rascon Eosinophils/100 WBC (Bld) 2.8 % Normal 0.9-7.0 [facility] Comment on above: Performed By: #### C BC #### [facility] [address] [place] [address] Dr. Kimber Rascon Erythrocyte distribution width (RBC) [Ratio] 12.6 % Normal 11.0-15.0 [facility] Comment on above: Performed By: #### C BC #### [facility] [address] [place] [address] Dr. Kimber Rascon Hematocrit (Bld) [Volume fraction] 47.1 % Normal 42.0-54.0 [facility] Comment on above: Performed By: #### C BC #### [facility] [address] [place] [address] Dr. Kimber Rascon Hemoglobin (Bld) [Mass/Vol] 15.9 g/dL Normal 14.0-18.0 [facility] Comment on above: Performed By: #### C BC #### [facility] [address] [place] [address] Dr. Kimber Rascon IG # 0.04 10e3/ul Critically high 0.00-0.03 [facility] Comment on above: Performed By: #### C BC #### [facility] [address] [place] [address] Dr. Kimber Rascon IG % 0.6 % Critically high 0.0-0.5 [facility] Comment on above: Performed By: #### C BC #### [facility] [address] [place] [address] Dr. Kimber Rascon LYMPH # 2.3 103/ul Normal 1.2-3.8 [facility] Comment on above: Performed By: #### C BC #### [facility] [address] [place] [address] Dr. Kimber Rascon Lymphocytes/100 WBC (Bld) 34.4 % Normal 20.5-60.0 [facility] Comment on above: Performed By: #### C BC #### [facility] [address] [place] [address] Dr. Kimber Rascon MANUAL DIFF REQ NO Normal [facility] Comment on above: Performed By: #### C BC #### [facility] [address] [place] [address] Dr. Kimber Rascon MCH (RBC) [Entitic mass] 30.8 pg Normal 25.9-34.0 [facility] Comment on above: Performed By: #### C BC #### [facility] [address] [place] [address] Dr. Kimber Rascon MCHC (RBC) [Mass/Vol] 33.8 g/dL Normal 29.9-35.2 [facility] Comment on above: Performed By: #### C BC #### [facility] [address] [place] [address] Dr. Kimber Rascon MCV (RBC) [Entitic vol] 91.3 fL Normal 80.0-94.0 [facility] Comment on above: Performed By: #### C BC #### [facility] [address] [place] [address] Dr. Kimber Rascon MONO # 0.6 103/ul Normal 0.3-0.8 [facility] Comment on above: Performed By: #### C BC #### [facility] [address] [place] [address] Dr. Kimber Rascon Monocytes/100 WBC (Bld) 9.4 % Normal 1.7-12.0 [facility] Comment on above: Performed By: #### C BC #### [facility] [address] [place] [address] Dr. Kimber Rascon NEUT # 3.6 103/ul Normal 1.4-6.5 [facility] Comment on above: Performed By: #### C BC #### [facility] [address] [place] [address] Dr. Kimber Rascon Neutrophils/100 WBC (Bld) 52.1 % Normal 43.0-75.0 [facility] Comment on above: Performed By: #### C BC #### [facility] [address] [place] [address] Dr. Kimber Rascon Platelet mean volume (Bld) [Entitic vol] 9.2 fL Critically low 9.5-13.5 [facility] Comment on above: Performed By: #### C BC #### [facility] [address] [place] [address] Dr. Kimber Rascon PLT 161 103/ul Normal 150-450 [facility] Comment on above: Performed By: #### C BC #### [facility] [address] [place] [address] Dr. Kimber Rascon RBC 5.16 106/ul Normal 4.70-6.10 [facility] Comment on above: Performed By: #### C BC #### [facility] [address] [place] [address] Dr. Kimber Rascon WBC 6.8 103/ul Normal 4.0-11.0 [facility] Comment on above: Performed By: #### C BC #### [facility] [address] [place] [address] Dr. Kimber Rascon LIPID PROFILEon 04-27-2022 CHOL-HDL RATIO NORM SEE BELOW Normal [facility] Comment on above: Result Comment: 3.3 - 4.4 LOW RISK 4.4 - 7.1 AVERAGE RISK 7.1 - 11.0 MODERATE RISK >11.0 HIGH RISK Performed By: #### L IPID #### [facility] [address] [address] [address] Kimber Rascon Cholesterol [Mass/Vol] 144 mg/dL Normal <=200 [facility] Comment on above: Performed By: #### L IPID #### [facility] [address] [address] [address] Kimber Rascon Cholesterol in HDL [Mass/Vol] 35 mg/dL Critically low 40-60 [facility] Comment on above: Performed By: #### L IPID #### [facility] [address] [address] [address] Kimber Rascon Cholesterol in LDL [Mass/Vol] 68.0 mg/dL Normal [facility] Comment on above: Performed By: #### L IPID #### [facility] [address] [address] [address] Kimber Rascon Cholesterol.total/ Cholesterol in HDL [Mass ratio] 4.1 {ratio} Normal [facility] Comment on above: Performed By: #### L IPID #### [facility] [address] [place] [address] Dr. Kimber Rascon HDL NORMAL > or = 60 mg/dl - LO W CARDIOVASCULAR RISK <40 mg/dl - HIGH CARDIOVASCULAR RISK Normal [facility] Comment on above: Performed By: #### L IPID #### [facility] [address] [place] [address] Dr. Kimber Rascon LDL CALC NORMAL SEE BELOW Normal [facility] Comment on above: Result Comment: <100 mg/dl OPTIMAL 100 - 129 mg/dl NEAR OR ABOVE OPTIMAL 130 - 159 mg/dl BORDERLINE HIGH 160 - 189 mg/dl HIGH >190 mg/dl VERY HIGH Performed By: #### L IPID #### [facility] [address] [place] [address] Dr. Kimber Rascon Triglyceride [Mass/Vol] 205 mg/dL Critically high <=150 [facility] Comment on above: Performed By: #### L IPID #### [facility] [address] [place], [place] [address] Dr. Kimber Rascon VLDL CALC 41.0 mg/dL Normal [facility] Comment on above: Performed By: #### L IPID #### [facility] [address] [place], [place] [address] Dr. Kimber Rascon Cardiovascular Lab Reporton 01-16-2018 Cardiovascular Lab Report [place] Patient Name: Ricardo Corrigan [facility] MR #: [id number] Physician: Antonio Lopez M.D.Medicine Service Date: 01/16/2018Division of Birthdate: 4Cardiology Room #: CCAdult [facility]ServicesB[facility] [place], [place] [address]Chlnq Fax Cardiovascular Laboratory ReportINDICATION: Ricardo Corrigan is [...] signed informed consent. He was brought to oven laborer in a fasting state.The left wrist area was prepped and draped in usual fashion. Adriel's testwas favorable. Access in the left radial artery was obtained usingmodified Seldinger technique. A 6-Indonesian x 11 cm Hydrophilic sheath wasadvanced. Verapamil was given through the sheath and heparin wasadministered intravenously. A 6-Indonesian XB 3.5 guiding catheter wasadvanced over a Tello wire and used to engage left main coronary ostium.Initial setup angiography was performed. A Stootie FFR wire was advancedand equalization of pressure [...] 04:01 P Antonio Ignacio M.D.Date Dict: 01/16/2018/09:03 Aubrey/Antonio Ignacio M.D.Date Trans: 01/16/2018 09:35 A/mmoDN_JN:[id number] c: Maxwell Swan D.O. [address] [facility] [address] [place] [facility] Cardiovascular Lab Reporton 12-15-2017 Cardiovascular Lab Report [place] Patient Name: Ricardo Corrigan [facility] MR #: [id number] Physician: Antonio Lopez M.D.Medicine Service Date: 12/14/2017Division of Birthdate: 1945ardiology Room #: 3CD [id number] [facility]ServicesUn[facility] [place], [place] [address]Mxexy Fax Cardiovascular Laboratory ReportINDICATION: Ricardo Corrigan is [...] signed informed consent. He was brought to oven laborer in a fasting state.The left wrist area was prepped and draped in the usual fashion. Adriel'stest was favorable on the left. Access was obtained in the left radialartery using micropuncture technique. A 6-Indonesian x 11 cm Hydrophilicsheath was advanced. Verapamil was given through the sheath and heparinwas administered intravenously. Bilateral selective coronary angiographywas then performed using 6-Indonesian JL4 and JR4 diagnostic catheters.Initial catheter advancement [...] This was post dilated using [place] [employer] [place] 3.0 x 12 mm ballooninflated at 16 [...] 12/14/2017/07:59 P/Antonio Ignacio M.D.Date Trans: 12/15/2017 03:48 A/mmoDN_JN:[id number] Normal [facility] Vital Signs Date Time Vital Sign Value Performing Clinician Rohit dang 11-13-2022 08:46-0500 Blood Pressure Location Betina Oz [facility] 11-13-2022 08:46-0500 Diastolic blood pressure 60 mm[Hg] Betinachandrakant Sampson [facility] 11-13-2022 08:46-0500 Heart rate 59 /min Betinachandrakant Sampson [facility] 11-13-2022 08:46-0500 SaO2% (BldA) [Mass fraction] 97 % Betina Sampson [facility] 11-13-2022 08:46-0500 Systolic blood pressure 98 mm[Hg] Betinachandrakant Sampson [facility] 08-14-2022 11:22-0500 Blood Pressure Location Betina Sampson [facility] 08-14-2022 11:22-0500 Diastolic blood pressure 78 mm[Hg] Betinachandrakant Sampson [facility] 08-14-2022 11:22-0500 Heart rate 57 /min Betinachandrakant Sampson [facility] 08-14-2022 11:22-0500 SaO2% (BldA) [Mass fraction] 98 % Betina Oz [facility] 08-14-2022 11:22-0500 Systolic blood pressure 112 mm[Hg] Betina Sampson [facility] 04-20-2022 08:21-0400 Blood Pressure Location Betina Sampson [facility] 04-20-2022 08:21-0400 Diastolic blood pressure 62 mm[Hg] Betina Sampson [facility] 04-20-2022 08:21-0400 Heart rate 53 /min Betina Sampson [facility] 04-20-2022 08:21-0400 SaO2% (BldA) [Mass fraction] 96 % Betina Sampson [facility] 04-20-2022 08:21-0400 Systolic blood pressure 100 mm[Hg] Betina Sampson [facility] 04-20-2022 08:19-0400 Blood Pressure Location Betina Sampson [facility] 04-20-2022 08:19-0400 Diastolic blood pressure 62 mm[Hg] Betina Sampson [facility] 04-20-2022 08:19-0400 Heart rate 53 /min Betina Sampson [facility] 04-20-2022 08:19-0400 SaO2% (BldA) [Mass fraction] 96 % Betina Sampson [facility] 04-20-2022 08:19-0400 Systolic blood pressure 100 mm[Hg] Betina Sampson [facility] Encounters Encounter Date Encounter Type Care Provider Facility Start: 07-08-2024 ambulatory Betina Sampson Facility : [facility] Start: 03-20-2024 ambulatory Betina Sampson Facility :[facility] Start: 12-21-2023 ambulatory Zachary CHUNG Facili ty:[facility] Start: 12-13-2023 ambulatory Betina Sampson Facility :[id number] Start: 11-29-2023 End: 11-30-2023 ambulatory Betina Shoshana Sampson Facility: [facility] Start: 11-19-2023 ambulatory Betina Shoshana Oz Facility :[id number] Start: 08-08-2023 End: 08-08-[address] [facility] Start: 07-05-2023 End: 07-06-2023 ambulatory Betinachandrakant Sampson Facility:[facility] Start: 06-11-2023 End: 06-12-2023 ambulatory Betina Sampson Facility: [facility] Start: 05-24-2023 End: 05-25-2023 ambulatory Zachary CHUNG Facility:CD:[id number] Start: 05-14-2023 End: 05-15-2023 ambulatory Betina Sampson Facility: [facility] Start: 05-03-2023 End: 05-04-2023 ambulatory Zachary CHUNG Facility:CD:[id number] Start: 04-30-2023 ambulatory Betina Sampson [facility] Start: 04-23-2023 End: 04-24-2023 ambulatory Betinachandrakant Sampson Facility: [facility] Start: 04-16-2023 End: 05-21-2023 ambulatory Betina Sampson Facility:CD:[id number] Start: 04-09-2023 ambulatory Betina Oz Facility:[facility] [place] Start: 04-07-2023 End: 04-08-2023 ambulatory Zachary CHUNG Facility:CD:[id number] Start: 01-05-2023 End: 01-05-[address] [facility] Start: 11-13-2022 End: 11-13-2022 Lab Drop off Betina Sampson [facility] Start: 11-13-2022 End: 11-13-2022 Patient encounter procedure Betina Sampson [facility] Start: 10-04-[address] ANTONIO Haider ility:[facility] Start: 08-14-2022 End: 08-14-2022 Patient encounter procedure Betina Sampson [facility] Start: 07-26-2022 End: 07-27-[address] ANTONIO IGNACIO Facility:[facility] Start: 05-11-2022 End: 05-12-[address] ANTONIO IGNACIO Facility:[facility] Start: 04-27-2022 End: 04-28-[address] ANTONIO IGNACIO Facility:[facility] Start: 04-24-[address] ANTONIO IGNACIO Fac ility:[facility] Start: 04-20-2022 End: 04-20-2022 Patient encounter procedure Betina Sampson [facility] Start: 04-20-2022 End: 04-20-2022 Patient encounter procedure Betina Sampson [facility] Start: 02-15-[address] ANTONIO Haider ility:[facility] Start: 02-08-2022 End: 02-08-2022 Patient encounter procedure Betina Sampson [facility] Start: 08-22-2018 End: 08-23-2018 Patient encounter procedure DEFAULT PHYSICIAN Facility:[facility] Start: 01-16-2018 End: 01-17-2018 Patient encounter procedure PROVIDER UNKNOWN Facility:[facility] Start: 12-14-2017 End: 12-15-2017 Patient encounter procedure PROVIDER UNKNOWN Facility:[facility] Start: 12-13-2017 End: 12-14-2017 Patient encounter procedure DEFAULT PHYSICIAN Facility:[facility] Start: 12-10-2017 End: 12-11-2017 Patient encounter procedure DEFAULT PHYSICIAN Facility:[facility] Procedures Date Procedure Procedure Detail Performing Clinician Start: 11-22-2017 Placement of stent i n cardiac conduit Betina Sampson Start: 09-24-2017 Colonoscopy Betina kearns Carpal tunnel syndro me of left wrist (disorder) Betina Sampson Carpal tunnel syndro me of right wrist (disorder) Betina Sampson Immunizations Immunization Date Immunization Notes Care Provider Fa wilber 10-05-2021 SARS-CoV-2 (COVID-19 ) Ad26 vaccine, recombinant Betina Sampson [facility] 11-30-2020 SARS-CoV-2 (COVID-19 ) Ad26 vaccine, recombinant Betina Sampson [facility] NEGATED: Highlighted row has not occurred!11-13-2022 influenza virus vaccine, unspecified formulation Betina Sampson [facility] NEGATED: Highlighted row has not occurred!11-13-2022 SARS-CoV-2 mRNA (tozinameran 5y-11y) vaccine Betina Sampson [facility] NEGATED: Highlighted row has not occurred!08-14-2022 influenza virus vaccine, unspecified formulation Betina Sampson [facility] NEGATED: Highlighted row has not occurred!08-14-2022 SARS-CoV-2 mRNA (tozinameran 5y-11y) vaccine Betina Oz [facility] Comment on above: Result Comment: Pt r efuses Covid booster Payers Date Payer Category Payer Medicare [id number] 1960 Self-pay [id number] 1960 Unknown [id number] 1945 Unknown [id number] 2.16.8 40.1.856316.3.579.2.647 1945 Unknown [id number] 2.16.8 40.1.268481.3.579.2.647 1944 Unknown [id number] 2.16.8 40.1.115077.3.579.2.647 1944 Unknown [id number] 2.16.8 40.1.401764.3.579.2.647 1944 Unknown [id number] 2.16.8 40.1.469407.3.579.2.647 1944 Unknown [id number] 2.16.84 0.1.921817.3.579.2.593 1944 Unknown [id number] 2.16.84 0.1.813661.3.579.2.593 1944 Unknown [id number] 2.16.84 0.1.692401.3.579.2.593 1944 Unknown [id number] 2.16.84 0.1.351205.3.579.2.593 1944 Unknown [id number] 2.16.84 0.1.239340.3.579.2.593 1944 Unknown [id number] 2.16.84 0.1.849189.3.579.2.593 1944 Unknown [id number] 2.16.8 40.1.504461.3.579.2.727 1944 Unknown [id number] 2.16.8 40.1.944826.3.579.2.727 1944 Unknown [id number] 2.16.8 40.1.847314.3.579.2.727 1944 Unknown [id number] 2.16.8 40.1.412150.3.579.2.727 1944 Unknown [id number] 2.16.8 40.1.035355.3.579.2.727 1944 Unknown [id number] 2.16.8 40.1.563375.3.579.2.727 1944 Unknown [id number] 2.16.8 40.1.975053.3.579.2.727 1944 Unknown [id number] 2.16.8 40.1.809953.3.579.2.727 1944 Unknown [id number] 2.16.8 40.1.490261.3.579.2.727 1944 Unknown [id number] 2.16.8 40.1.118628.3.579.2.727 1944 Unknown [id number] 2.16.8 40.1.300072.3.579.2.727 1944 Unknown [id number] 2.16.8 40.1.673918.3.579.2.727 Medicare [id number] Unknown Social History Date Type Detail Facility Start: 01-17-2022 End: 11-13-2022 Tobacco smoking status Never smoked tobacco (finding) [facility] Tobacco smoking status Never [facility] Sex Assigned At Male [facility] Functional Status Date Assessment Result Facility 11-13-2022 Functional Status N/A [facility] 08-14-2022 Functional Status N/A [facility] 04-20-2022 Functional Status N/A [facility] Clinical Notes 04-20-2022 to 11-21-2023 Note Date & Type Note Facility 11-21-2023 Note [id number] [facility] 11-21-2023 Note [id number] [facility] 08-08-2023 Note [place] [facility] Subjective Ricardo Corrigan is a 78 [...] pressure about 195/104. He was seen in [facility] ED and D-Dimers were mildly elevated, [...] Visit of 04/24/2022: He is seen in fo (more content not included)... [facility] 04-16-2023 Note [id number]:127 [facility] 01-05-2023 Note Patient here for 6 [...] All other systems reviewed and are negative. [facility] 01-05-2023 Note Cardiovascular Medic [facility] SUBJECTIVE Chief Complaint Patient presents with Coronary Artery Disease Hypertension Hyperlipidemia Ricardo Corrigan is a 77 y.o. male here for follow-up for his known CAD s/p PCI, HTN, HLD. HPI Previous HPI per Dr. Ignacoi: Mr Corrigan is seen in follow up. [...] pressure about 195/104. He was seen in [facility] ED and D-Dimers were mildly elevated, [...] 103/73 (BP Locati (more content not included)... [facility] 11-13-2022 Hospital Discharge instructions Patient Education [...] height. This can be done either in [place]ian ([place] or metric measurements. Note that charts are available to help you find your BMI quickly and easily without having to do these calculations yourself. To calculate your BMI in [place]ian ([place] measurements, your health care provider will: [...] medical problems. BMI can be measured using Bel[place]ian measurements or metric measurements. To interpret your [...] 05/22/2005 Document Revised: 08/23/2018 Document Reviewed: 07/24/2018 [employer] Patient Education 2019 [employer] [place]. [facility] 08-14-2022 Hospital Discharge instructions Patient Education [...] height. This can be done either in [place]ian ([place] or metric measurements. Note that charts are available to help you find your BMI quickly and easily without having to do these calculations yourself. To calculate your BMI in [place]ian ([place] measurements, your health care provider will: [...] medical problems. BMI can be measured using Bel[place]ian measurements or metric measurements. To interpret your [...] 05/22/2005 Document Revised: 08/23/2018 Document Reviewed: 07/24/2018 [employer] Patient Education 2019 [employer] [place]. [facility] 04-20-2022 Hospital Discharge instructions Patient Education 04/20/2022 08:30:15 Heart Attack, Smxd-hu-Ibhs Heart Attack A heart attack occurs when blood and oxygen supply to the heart is cut off. A heart attack causes damage to the heart that cannot be fixed. A heart attack is also called a myocardial infarction, or ID. If you think you are having a [...] Follow these instructions at home: Medicines Take rnvf-mju-ozfildm and prescription medicines only as told by [...] 03/11/2013 Document Revised: 12/22/2019 Document Reviewed: 12/22/2019 [employer] Patient Education 2020 [employer] 04/20/2022 08:29:45 Atherosclerosis Atherosclerosis Atherosclerosis is narrowing [...] or a diet and food and nutrition teacher (dietitian) if you need help. A heart-healthy [...] Do not abuse drugs. General instructions Take evrf-sur-dqoxjjo and prescription medicines only as told by [...] 11/30/2004 Document Revised: 12/20/2018 Document Reviewed: 05/16/2018 [employer] Patient Education 2020 [employer] [place]. 04/20/2022 08:29:43 Angina Angina Angina is extreme [...] Follow these instructions at home: Medicines Take uhmp-taa-lsebogn and prescription medicines only as told by [...] right away. Call your local emergency services (561 in the [place] Do not drive yourself [...] right away. Call your local emergency services (171 in the [place] Do not drive yourself to the hospital. This information is not intended to replace advice given to you by your health care provider. Make sure you discuss any questions you have with your health care provider. Document Released: 09/10/2006 Document Revised: 04/28/2019 Document Reviewed: 04/28/2019 [employer] Patient Education 2020 [employer] [place]. 04/20/2022 08:29:40 Obesity, Adult, Uncq-cj-Gdti Obesity, Adult Obesity is having too much [...] food choices, such as grocery stores and [employer] markets. What are the signs or symptoms? The [...] eat. ?How much exercise you get. Take bmgj-rtj-lxjfsjs and prescription medicines only as told by [...] 12/02/2012 Document Revised: 05/15/2019 Document Reviewed: 05/15/2019 [employer] Patient Education 2020 [employer] [place]. 04/20/2022 08:29:38 Hypertension, Adult Hypertension, Adult High [...] care provider. This is important. Medicines Take lqqo-uqh-wfvywsy and prescription medicines only as told by [...] 09/10/2006 Document Revised: 05/21/2019 Document Reviewed: 05/21/2019 [employer] Patient Education 2020 [employer] [place]. 04/20/2022 08:29:38 Heart Disease Prevention Heart Disease [...] of hard liquor (1 oz). Medicines Take jcih-hek-itblxnv and prescription medicines only as told by [...] Centers for Disease Control and Prevention: www.cdc.gov/heartdisease [place] [employer]: www.heart.org ?Take a free online [...] 04/24/2005 Document Revised: 09/25/2018 Document Reviewed: 09/25/2018 [employer] Patient Education 2020 [employer] 04/20/2022 08:29:37 Exercising to Lose Weight Exercising [...] provider or diet and food and nutrition teacher (dietitian). This may include: ?Eating fewer calories. [...] 10/13/2011 Document Revised: 09/23/2018 Document Reviewed: 09/23/2018 [employer] Patient Education 2020 [employer] [place]. 04/20/2022 08:29:36 BMI for Adults BMI for [...] height. This can be done either in [place] ([place] or metric measurements. Note that charts are available to help you find your BMI quickly and easily without having to do these calculations yourself. To calculate your BMI in [place] ([place] measurements, your health care provider will: [...] medical problems. BMI can be measured using Bel[place]ian measurements or metric measurements. To interpret your [...] 05/22/2005 Document Revised: 08/23/2018 Document Reviewed: 07/24/2018 [employer] Patient Education 2020 [employer] [place]. [facility] [place] Evaluation + Plan note Future Appointments Appointment Date:04/20/2022 08:00:00 AM Scheduled Provider: Location:[facility] Appointment Type:FM Medicare Wellness Welcome Appointment Date:04/20/2022 09:00:00 AM Scheduled Provider:Betina Sampson MD Location:[facility] Appointment Type:[facility] Evaluation + Plan note Future Appointments Appointment Date:07/20/2022 09:20:00 AM Scheduled Provider:Betina Sampson MD Location:[facility] Appointment Type:FM Open Appointment Date:04/30/2023 08:00:00 AM Scheduled Provider: Location:[facility] Appointment Type:FM Medicare Wellness Subsequent [facility] [place] Evaluation + Plan note Future Appointments Appointment Date:11/13/2022 09:00:00 AM Scheduled Provider:Betina Sampson MD Location:[facility] Appointment Type:FM Open Appointment Date:04/30/2023 08:00:00 AM Scheduled Provider: Location:[facility] Appointment Type:FM Medicare Wellness Subsequent [facility] [place] Evaluation + Plan note Future Appointments Appointment Date:04/30/2023 08:00:00 AM Scheduled Provider: Location:[facility] Appointment Type:FM Medicare Wellness Subsequent Appointment Date:05/14/2023 07:00:00 AM Scheduled Provider:Betina Sampson MD Location:[facility] Appointment Type:FM Open [facility] [place] Hospital course Narrative No data available for this section [facility] Hospital Discharge instructions No data available for this section [facility] Progress note No data available for this section [facility] [place] Summary Purpose Family History No Family History [...] and content) DATE CREATED AUTHOR 09/02/2018 [facility] DATE CREATED AUTHOR AUTHOR'S ORGANIZ ATION 10/04/2022 [facility] DATE CREATED AUTHOR AUTHOR'S ORGANIZ ATION 08/09/2023 [facility] DATE CREATED AUTHOR AUTHOR'S ORGANIZ ATION 12/14/2023 [facility] Care Team (unrecognized sect ion and content) Personnel Name: Betina Sampson MD Address: [address] [place] [address] Personnel Name: Betina Sampson MD Address: [address] [place] [address] Personnel Name: Betina Sampson MD Address: Address: [address] [place] [address] Personnel Name: Betina Sampson MD Address: Address: [address] [place] [address] Personnel Name: Betina Sampson MD Address: Address: [address] [place] [address] FOR RECORDS PERTAINING TO PATIENTS WHO ARE [...] BE BASED ON THE PRIMARY CLINICAL RECORDS. [facility] [employer] provides no warranty or guarantee of the accuracy or completeness of information in this document.
== END 2023-12-18 09:19 | disposition home or self-care (01) ==
LOC: RAD 09:20
PROVIDERS: PCP Family Medicine; Visit Provider Urology
DX: N20.0 Calculus of kidney (principal)
CPT/HCPCS: 74018

== ENCOUNTER 2024-04-01 07:27 | Outpatient (OUT) | payer MEDICARE, SELFPAY ==
--- NOTE | 2024-04-01 07:46 | CA_ITS ---
Patient Name: JAMAICA CORRIGAN MR#: [id number] : 1945 Exam Date: 04/01/2024 Ordering Doctor: DR ANTONIO IGNACIO M.D. ECHOCARDIOGRAM REPORT PROCEDURE: CA ECHO DOPPLER COMPLETE INDICATIONS: Dyspnea COMPARISON: None. DESCRIPTION: COMPLETE ECHOCARDIOGRAM Real-time transthoracic echocardiography with 2D, M-mode, spectral and color flow Doppler performed. QUALITY: Technical quality was adequate. LEFT VENTRICLE: Normal chamber size. Mildly increased left ventricular wall thickness. LV EF: Global left ventricular systolic function is normal. Calculated left ventricular ejection fraction is 62%. No wall motion abnormalities. DIASTOLIC: Normal diastolic function. ATRIAL SEPTUM: Inadequately seen. LEFT ATRIUM: Normal chamber size. RIGHT ATRIUM: Normal chamber size. RIGHT VENTRICLE: Normal chamber size. Normal right ventricular systolic function. TRICUSPID VALVE: Normal mobility and thickness. No stenosis with trivial regurgitation. No evidence of pulmonary hypertension. RVSP 25mmHg MITRAL VALVE: Normal mobility and thickness. No evidence of mitral valve stenosis. There is no mitral annular calcification. Trivial mitral regurgitation. AORTIC VALVE: Normal trileaflet appearance. Mildly calcified aortic valve. No evidence of aortic valve stenosis. No aortic regurgitation. AORTIC ROOT: Normal diameter and appearance. PULMONIC VALVE: Normal thickness and mobility. No stenosis. Trivial regurgitation. PERICARDIUM: No evidence of pericardial effusion. IVC: Collapses with inspirations. Normal size. CONCLUSION: 1. Global left ventricular systolic function is normal; visually estimated ejection fraction 60 to 65% 2. Normal right ventricular size and systolic function 3. Normal diastolic function 4. The left atrium is normal in size 5. No significant valvular abnormalities Adult Echocardiography Procedure Report Left Ventricle LVEDD (3.7 - 5.6 cm): 4.74 cm LVESD (2.2 - 4.0 cm): 3.15 cm LVIVS thickness (0.6 - 1.2 cm): 1.32 cm LVPW thickness (0.5 - 1.0 cm): 1.21 cm e': 0.08 m/s E - e': 6.03 LVOT Max Gradient: 2.80 mm[Hg] LVOT Area (cm2): 0.84 m/s Peak Velocity (LVOT): 0.84 m/s Mean Velocity (LVOT): 0.53 m/s LVOT Diameter 2.28 cm Left Ventricular Ejection Fraction: 61.89 % Left Atrium LA Volume Index (2D A2C): 31.98 ml/m2 Left Atrium Systolic Dimension: 3.42 cm Mitral Valve MV E to A Ratio: 0.72 Mitral Valve A-Wave Peak Velocity: 0.68 m/s Mitral Valve E-Wave Peak Velocity: 0.49 m/s Right Ventricle RV Internal Diastolic Dimension: 2.79 cm Aorta AO Root Diam: 3.44 cm Ascending Ao Diam: 2.61 cm Aortic Valve AoV Area (Peak Jules): 1.84 cm2, 1.84 cm2 AoV Area (VTI): 1.81 cm2, 1.81 cm2 Peak Velocity(Antegrade Flow): 1.86 m/s Peak Gradient(Antegrade Flow): 13.83 mm[Hg] Mean Velocity(Antegrade Flow): 1.34 m/s Mean Gradient(Antegrade Flow): 7.90 mm[Hg] Velocity Time Integral: 42.27 cm Tricuspid Valve Peak Velocity (Regurgitant Flow): 2.36 m/s, 2.37 m/s, 1.81 m/s Pulmonic Valve Mean Gradient: 1.75 mm[Hg] Mean Velocity: 0.62 m/s Peak Velocity: 0.98 m/s, 0.84 m/s Peak Gradient: 3.85 mm[Hg], 2.81 mm[Hg] Right Atrium Right Atrium Systolic Pressure: 32.77 ml, 32.77 ml Dictated by: Suri Webber M.D. on 04/02/2024 at 10:16 Approved by: Suri Webber M.D. on 04/02/2024 at 10:20
== END 2024-04-01 07:28 | disposition home or self-care (01) ==
LOC: CARD 07:28
PROVIDERS: PCP Family Medicine; Visit Provider Internal Medicine Interventional Cardiology
DX: R06.02 Shortness of breath (principal)
CPT/HCPCS: 93306; 93356

== ENCOUNTER 2024-05-19 06:50 | Outpatient (OUT) | payer MEDICARE, SELFPAY ==
--- NOTE | 2024-05-19 | PCN_ITS ---
CARDIAC STRESS TEST Requesting Physician: Boston Gibson M.D. Procedure Date: 05/19/2024 PERFORMING PROVIDER: Kareen Garcia M.D. INDICATION: Shortness of breath, dyspnea on exertion. STRESS TEST PROTOCOL: Lexiscan myocardial perfusion imaging. Resting heart rate: 69 Max heart rate: 90 Peak maximal heart rate percentage: 63% Resting blood pressure: 142/76 Maximum blood pressure: 142/76 Resting EKG: Sinus rhythm. ST changes: No ST changes meeting the criteria of ischemia. Symptoms reported: None reported. Arrhythmias: Isolated PVCs. CONCLUSIONS: 1. Resting EKG demonstrated sinus rhythm. 2. There were no ST changes meeting the criteria for ischemia post Lexiscan infusion. 3. Please refer to separately interpreted and reported nuclear myocardial perfusion report. [facility]
--- NOTE | 2024-05-19 | NM_ITS ---
Patient Name: JAMAICA CORRIGAN MR#: [id number] : 1945 Exam Date: 05/19/2024 Ordering Doctor: DR ANTONIO IGNACIO M.D. RADIOLOGY REPORT PROCEDURE: NM FAUSTO PERF SPECT REST STR COMPARISON: None. INDICATIONS: Other forms of dyspnea TECHNIQUE: Exam Description: Stress/Rest two day protocol gated SPECT Rest Imagin.8 mCi Tc-99m Cardiolite IV on 05/19/2024 Stress Imaging 29.8 mCi Tc-99m Cardiolite IV on 05/19/2024 Exercise Protocol: 0.4 mg Lexiscan given IV Heart Rate (bpm): Rest: 69 Max: 90 PMHR: 63 Blood Pressure: Rest: 142/76 Max: 142/76 Symptoms: Rest and peak stress ECG findings were normal and the exercise portion of the study was normal per attending physician Dr. Garcia . For more details please see separate cardiac stress test report. FINDINGS: QUALITY OF STUDY: Good. PERFUSION DEFECT: LOCATION: Basal inferior. Mid-inferior. SIZE: Small (1-2 segments). SEVERITY: Moderate. TYPE: Persistent. WALL MOTION: Normal. LV SIZE: Normal. 65 mL. TID / TCD: None; 0.7 LVEF: Normal. Calculated EF 67%. SUMMARY: Myocardial perfusion imaging study has ABNORMAL findings. CONCLUSION: 1. Fixed inferior wall defect, rca distribution 2. No reversible ischemia 3. Normal exercise test Dictated by: Bryan Bowers MD on 05/20/2024 at 10:00 Approved by: Bryan Bowers MD on 05/20/2024 at 10:09
--- OUTSIDE RECORDS SUMMARY | 2024-05-19 06:54 | XMS_ITS | CCD ---
Author Organization [facility] Care Team Providers Care Substation Operator Conversion Name Role Phone PHYSICIAN, DEFAULT Unavailable Unavailable [...] Unavailable Unavailable MAXWELL SWAN Unavailable Unavailable Betina aSmpson Primary Care Physician MATEUS, DR ALVAREZ Admitting Unavailable MOUKARBEL, DR ALVAREZ Attending Unavailable [facility] Primary Care Unavailable MOUKARBEL, DR ALVAREZ Admitting Unavailable MOUKARBEL, DR ALVAREZ Attending Unavailable ROSS, BETINA DONNA Primary Care Unavailable ROSS, BETINA DONNA Referring Unavailable MOUKARBEL, DR ALVAREZ Consulting Unavailable MOUKARBEL, DR ALAVREZ Admitting Unavailable MOUKARBEL, DR ALVAREZ Attending [facility]available [facility] Primary Care Unavailable MOUKARBEL, DR ALVAREZ Consulting Unavailable MOUKARBEL, DR ALVAREZ Admitting Unavailable MOUKARBEL, DR ALVAREZ Attending Unavailable [facility] DONNA Primary Care Unavailable MOUKARBEL, DR ALVAREZ Consulting Unavailable MOUKARBEL, DR ALVAREZ Admitting Unavailable MOUKARBEL, DR ALVAREZ Attending Unavailable [facility] Primary Care Unavailable MOUKARBEL, DR ALVAREZ Admitting Unavailable MOUKARBEL, DR ALVAREZ Attending Unavailable [facility] Primary Care Unavailable Betina Sampson Primary Care Physician ANTONIO GIBSON Attending Unavailable ANTONIO GIBSON Attending Unavailable Meghan Palomo Attending Unavailable KRISH Mbtd Admitting Unavailable KRISH Mbtd Attending Unavailable Honorio Gomez Consulting Unavailable MD Honorio Gomez Consulting Unavailable Honorio Gomez Consulting Unavailable Honorio Gomez Consulting Unavailable OJOSEFINAKANNETTE Mbanefo Admitting Unavailable KRISH, Mbanefo Attending Unavailable Mallory Herny Consulting UnavailMD Mallory Gray Consulting Unavail able Mallory Henry Consulting Unavailabl e Mallory Henry Consulting UnavailMD Betina Vicente [facility] AMAYA Attending Provid er MD Betina Sampson Admitting Unavailable MD Betina Sampson Attending Unavailable Honorio Gomez Attending Unavailable Mallory Henry Attending Unavailabl e Mallory Henry Admitting UnavailMD Kaur Rodriguez Attending Provider [facility] Mallory AMAYA Referring Provid er Mallory Henry Admitting Unavailabl e Alok-Sarahi, Mallory Michaels Attending Unavailabl e Zachary ELAM Attending Unavailable Mallory Henry Attending Unavailabl e Alok-Mallory Mcclain Admitting Unavailabl e Al-Mallory Mcclain Attending Unavailabl e Alok-Mallory Mcclain Referring UnavailHonorio Fermin Referring Unavailable Honorio Gomez Admitting Unavailable Honorio Gomez Attending Unavailable Honorio Gomez Referring Unavailable Al-Mallory Mcclain Attending Unavailabl e Alok-Mallory Mcclain Consulting UnavailBetina Vicente Primary Care Unavailable Al-Marrajake [facility], Mallory Michaels Admitting Margarita vailable Al-Marrajake [facility], Mallory Michaels Attending Margarita vailable Alok-Marrajake [facility], Mallory Michaels Referring Margarita vailable Betina Sampson Primary Care Unavailable Kaur Austin Admitting Unavailable Kaur Austin Attending Unavailable Zachary YBARRA Attending Unavailable Zachary YBARRA Admitting Unavailable Zachary YBARRA Admitting Unavailable Zachary YBARRA Attending Unavailable Adamowicz, Terell Consulting Unavailable Adamowicz, DO Terell Consulting Unavailabl e Adamowicz, Terell Consulting Unavailable Adamowicz, Terell Consulting Unavailable Adamowicz, Terell Consulting Unavailable Adamowicz, Terell Consulting Unavailable Adamowicz, Terell Consulting Unavailable Adamowicz, Terell Consulting Unavailable Adamowicz, Terell Consulting Unavailable Betina Sampson Attending Unavailable Betina Sampson Attending Unavailable Betina Sampson Attending Unavailable Betina Sampson Attending Unavailable Betina Sampson Attending Unavailable Betina Sampson Attending Unavailable Zachary ELAM Attending Unavailable Zachary ELAM Attending Unavailable Betina Sampson Admitting Unavailable Betina Sampson Admitting Unavailable Zachary ELAM Attending Unavailable Zachary ELAM Attending Unavailable Betina Sampson Attending Unavailable Betina Sampson Attending Unavailable Betina Sampson Attending Unavailable Zachary YBARRA Admitting Unavailable Demetrio Coffey Attending Unavailable Mallory Henry Attending Unavailabl e Al-Mallory Mcclain Attending Unavailabl e Betina Sampson Attending Unavailable Al-Mallory Mcclain Attending Unavailabl e Adamowicz, Terell Consulting Unavailable Adamowicz, DO Terell Consulting Unavailabl e Adamowicz, Terell Consulting Unavailable Adamowicz, Terell Consulting Unavailable Adamowicz, Terell Consulting Unavailable Adamowicz, Terell Consulting Unavailable Adamowicz, Terell Consulting Unavailable Adamowicz, Terell Consulting Unavailable Adamowicz, Terell Consulting Unavailable Betina Sampson Admitting Unavailable Betina Sampson Attending Unavailable Alok-Mallory Mcclain Attending Unavailabl e Al-Mallory Mcclain Attending Unavailabl Honorio Moore Admitting Unavailable Honorio Gomez Attending Unavailable Honorio Gomez Referring Unavailable Mallory Henry Referring Unavailabl e Alok-Mallory Mcclain Admitting Unavailabl e Alok-Mallory Mcclain Attending Unavailabl e Alok-MarMallory bae Attending Unavailabl e Alok-MarMallory bae Attending Unavailabl e DO Angel Carter Attending Unavailable Al-Marrawi, Mallory Michaels Attending Unavailabl e FABRICE MEMBRENO Attending Unavailable Al-Marrawi, Mallory Michaels Attending Unavailabl e Al-Marrawi, Mallory Michaels Referring Unavailabl e Al-Markathia, Mallory Michaels Admitting Unavailabl e Al-Markathia, Mallory Michaels Attending Unavailabl e Al-Marrajake, Mallory Michaels Attending UnavailMD Betina Vicente Attending Unavailable Al-Marrawi, Mallory Michaels Attending Unavailabl e Al-Marrawi, Mallory Michaels Attending Unavailabl e Allergies Allergy Classification Reported Allergen(s) Allergy Type Date of Onset Reaction(s) Facility (20 sources) No Known Medication Allergies; Translations: [No Known Medication Allergies] Propensity to adverse reactions (disorder) [facility] Repository Medications Current Medications Medication Drug Class(es) Dates Sig (Normalized) Sig (Original) Aspir 81 (8 sources) Start: 01-17-2022 take 81 mg by mouth once daily Aspir 81 81 mg, Oral, Daily, Refills(s) 0 Start Date: 01/17/22 Status: Ordered atorvastatin 40 mg oral tablet (1 source) HMG-CoA Reductase Inhibitor Start: 11-29-2023 take 1 tablet by mouth once daily Lipitor 40 mg Tab 40 mg = 1 tab(s), Oral, Daily, # 90 tab(s), Refills(s) 0, Pharmacy: [id number], 167, cm, 11/29/23 10:50:00 EST, Height/Length Dosing, 96, kg, 11/29/23 10:50:00 EST, Weight Dosing Start Date: 11/29/23 Status: Ordered Calcium, Magnesium and Zinc oral tablet (6 sources) Start: 01-17-2022 take 1 tablet by mouth once daily Calcium, Magnesium and Zinc oral tablet 1 tab(s), Oral, Daily, Refill(s) 0 Start Date: 01/17/22 Status: Ordered cholecalciferol 0.05 mg oral tablet (2 sources) Vitamin D Start: 08-15-2019 Cholecalciferol (Vitamin D3) (Vitamin D3) 2,000 unit Tablet Active 500 MG PO Daily August 15, 2019 1:00am D3 (20 sources) Start: 12-25-2023 take 125 ug by mouth once daily D3 125 mcg, Oral, Daily, Refills(s) 0 Start Date: 12/25/23 Status: Ordered Dosoquin oral tablet (3 sources) Start: 01-17-2022 End: 07-16-2022 take 1 tablet by mouth once daily Dosoquin oral tablet 1 tab, Oral, Daily for 90 day(s), 90 EA, Refill(s) 1, [id number], 172, cm, 01/17/22 9:53:00 EDT, Height/Length Dosing, 92.5, kg, 01/17/22 9:53:00 EDT, Weight Dosing Start Date: 01/17/22 Stop Date: 07/16/22 Status: Ordered 24 hr isosorbide mononitrate 30 mg extended release oral tablet (20 sources) Nitrate Vasodilator Start: 04-20-2022 take 1 tablet by mouth once daily in the morning isosorbide mononitrate 30 mg ER Tab 30 mg = 1 tab(s), Oral, qAM, # 30 tab(s), Refills(s) 0, other reason (Rx) Start Date: 04/20/22 Status: Ordered levoFLOXacin 500 mg oral tablet (5 sources) Quinolone Antimicrobial Start: 05-01-2024 End: 05-11-2024 take 1 tablet by mouth every twenty-four hours Levaquin 500 mg Tab 500 mg = 1 tab(s), Oral, q24hr, X 10 day(s), # 10 tab(s), Refills(s) 0, Pharmacy: [id number], 167.6, cm, 04/27/24 20:11:00 EDT, Height/Length Dosing, 90.8, kg, 04/27/24 20:11:00 EDT, Weight Dosing Start Date: 05/01/24 Stop Date: 05/11/24 Status: Ordered lisinopril 2.5 mg oral tablet (8 sources) Angiotensin Converting Enzyme Inhibitor Start: 01-17-2022 take 1 tablet by mouth once daily lisinopril 2.5 mg Tab 2.5 mg = 1 tab(s), Oral, Daily, # 90 tab(s), Refills(s) 0 Start Date: 01/17/22 Status: Ordered Start: 08-15-2019 End: 04-21-2024 take 10 mg by mouth once daily in the morning Lisinopril Discontinued 10 MG PO Every morning August 15, 2019 1:00am April 21, 2024 9:00am Magnesium Hydroxide (1 source) Start: 04-21-2024 take 400 mg by mouth once daily Magnesium Hydroxide Active 400 MG PO Daily April 21, 2024 12:00am magnesium oxide 420 mg oral tablet (20 sources) Start: 03-08-2024 take 420 mg by mouth once daily at bedtime magnesium oxide 420 mg, Oral, Once a day (at bedtime), Refills(s) 0 Start Date: 03/08/24 Status: Ordered metoprolol tartrate 25 mg oral tablet (20 sources) beta-Adrenergic Felix Start: 05-12-2024 Metoprolol tartrate 25 mg Tab 12.5 mg = 0.5 tab(s), Oral, Daily, # 45 tab(s), Refills(s) 0 Start Date: 05/12/24 Status: Ordered Start: 05-01-2024 End: 05-01-2024 Lopressor 50 mg oral tablet 25 mg = 0.5 tab(s), Tab, Oral, Start date 05/01/24 9:00:00 AM EDT, 04/28/24 13:43:00 EDT Start Date: 05/01/24 Stop Date: 05/01/24 Status: Completed Start: 03-10-2024 End: 03-10-2024 Lopressor 50 mg oral tablet 25 mg = 1 tab(s), Tab, Oral, Start date 03/10/24 9:00:00 AM EDT, 03/08/24 13:09:00 EDT Start Date: 03/10/24 Stop Date: 03/10/24 Status: Completed Start: 03-09-2024 End: 03-09-2024 Lopressor 50 mg oral tablet 25 mg = 1 tab(s), Tab, Oral, Start date 03/09/24 9:00:00 PM EDT, 03/08/24 13:09:00 EDT Start Date: 03/09/24 Stop Date: 03/09/24 Status: Completed Start: 03-09-2024 End: 03-09-2024 Lopressor 50 mg oral tablet 25 mg = 1 tab(s), Tab, Oral, Start date 03/09/24 9:00:00 AM EDT, 03/08/24 13:09:00 EDT Start Date: 03/09/24 Stop Date: 03/09/24 Status: Completed Start: 12-25-2023 take 0.5 tablet by m outh twice daily Lopressor 50 mg (take one- half tablet), Oral, BID, Refills(s) 0 Start Date: 12/25/23 Status: Ordered Start: 11-13-2022 Lopressor 25 m g oral tablet 90 EA, TAKE 1/2 (ONE-HALF) TABLET BY MOUTH TWICE DAILY FOR 90 DAYS, Refills(s) 0 Start Date: 11/13/22 Status: Ordered Start: 01-17-2022 End: 05-16-2022 take 0.5 tablet by mouth twice daily Lopressor 25 mg oral tablet 12.5 mg = 0.5 tab(s), Oral, BID, TAKE 1/2 (ONE-HALF) TABLET BY MOUTH TWICE DAILY, X 90 day(s), # 90 tab(s), Refills(s) 0, Pharmacy: [id number], 172, cm, 01/17/22 9:53:00 EDT, Height/Length Dosing, 92.5, kg, 01/17/22 9:53:00 EDT, Weight D... Start Date: 02/15/22 Stop Date: 05/16/22 Status: Ordered Start: 08-15-2019 take 25 mg by mouth twice emre y Metoprolol Tartrate Active 25 MG PO Twice daily August 15, 2019 1:00am ondansetron 8 mg oral tablet (19 sources) Serotonin-3 Receptor Antagonist Start: 04-21-2024 take 8 mg by mouth every twelve hours Ondansetron Active 8 MG PO Every 12 hours April 21, 2024 12:00am Start: 04-14-2024 take 1 tablet by сергей th every eight hours as needed for nausea ondansetron 8 mg Tab 8 mg, Oral, q8hr, PRN Nausea, # 30 tab(s), Refills(s) 3, Pharmacy: [id number], 170, cm, 04/18/24 13:00:00 EDT, Height/Length Dosing, 92.2, kg, 04/18/24 13:00:00 EDT, Weight Dosing Start Date: 04/21/24 Status: Ordered Outpatient physical therapy (6 sources) Start: 04-29-2024 Outpatient physical therapy Outpatient physical therapy, Eval, treat and make recommendations, Print Requisition, Compound Start Date: 04/29/24 Status: Ordered pantoprazole 40 mg delayed release oral tablet (20 sources) Proton Pump Inhibitor Start: 04-21-2024 take 1 tablet by mouth once daily Pantoprazole [address] Tab 40 mg = 1 tab(s), Oral, Daily, # 30 tab(s), Refills(s) 11, called to pharmacy (Rx) Start Date: 04/21/24 Status: Ordered Start: 03-13-2024 take 1 tablet by сергей th twice daily Pantoprazole [address] Tab 40 mg = 1 tab(s), Oral, BID, # 60 tab(s), Refills(s) 0, Pharmacy: [id number], 167, cm, 03/13/24 14:49:00 EDT, Height/Length Dosing, 93.2, kg, 03/13/24 14:49:00 EDT, Weight Dosing Start Date: 03/13/24 Status: Ordered Start: 03-10-2024 take 1 tablet by сергей th twice daily Pantoprazole [address] Tab 40 mg = 1 tab(s), Oral, BID, # 60 tab(s), Refills(s) 0, Pharmacy: [id number], 167.6, cm, 03/08/24 7:32:00 EDT, Height/Length Dosing, 92.4, kg, 03/08/24 7:32:00 EDT, Weight Dosing Start Date: 03/10/24 Status: Ordered prochlorperazine 10 mg oral tablet (19 sources) Phenothiazine Start: 04-21-2024 take 10 mg by mouth twice daily Prochlorperazine Maleate Active 10 MG PO Twice daily April 21, 2024 12:00am Start: 04-14-2024 take 1 tablet by сергей th every six hours as needed for nausea prochlorperazine 10 mg Tab 10 mg, Oral, q6hr, PRN Nausea, # 30 tab(s), Refills(s) 3, Pharmacy: [id number], 170, cm, 04/18/24 13:00:00 EDT, Height/Length Dosing, 92.2, kg, 04/18/24 13:00:00 EDT, Weight Dosing Start Date: 04/21/24 Status: Ordered simvastatin 10 mg oral tablet (20 sources) HMG-CoA Reductase Inhibitor Start: 12-25-2023 take 10 mg by mouth once daily simvastatin 10 mg, Oral, Daily, Refills(s) 0 Start Date: 12/25/23 Status: Ordered Start: 04-20-2022 take 1 tablet by сергей th once daily at bedtime simvastatin 20 mg [...] day(s), # 90 tab(s), Refills(s) 0, Pharmacy: [id number], 172, cm, 01/17/22 9:53:00 EDT, Height/Length Dosing, 92.5, kg, 01/17/22 9:53:00 EDT, Weight Dosing Start Date: 01/17/22 Stop Date: 04/17/22 Status: Ordered Start: 08-15-2019 take 40 mg by mouth once daily Simvastatin Active 40 MG PO Daily August 15, 2019 1:00am sucralfate 1000 mg oral tablet (18 sources) Aluminum Complex Start: 05-06-2024 End: 05-20-2024 take 1 tablet by mouth four times daily Carafate 1 gram Tab 1 gm = 1 tab(s), Oral, QID, X 14 day(s), # 56 tab(s), Refills(s) 0 Start Date: 05/06/24 Stop Date: 05/20/24 Status: Ordered Start: 04-21-2024 take 1 g by mouth twice daily Sucralfate Active 1 GM PO Twice daily April 21, 2024 12:00am Start: 03-13-2024 take 1 tablet by сергей th four times daily Carafate 1 gram Tab 1 gm = 1 tab(s), Oral, QID, May dissolve in 10 mls of fluid, # 120 tab(s), Refills(s) 0, Pharmacy: [id number], 167, cm, 03/13/24 14:49:00 EDT, Height/Length Dosing, 93.2, kg, 03/13/24 14:49:00 EDT, Weight Dosing Start Date: 03/13/24 Status: Ordered Start: 03-10-2024 take 1 tablet by [facility] four times daily Carafate 1 gram Tab 1 gm = 1 tab(s), Oral, QID, May dissolve in 10 mls of fluid, # 120 tab(s), Refills(s) 0, Pharmacy: [id number], 167.6, cm, 03/08/24 7:32:00 EDT, Height/Length Dosing, 92.4, kg, 03/08/24 7:32:00 EDT, Weight Dosing Start Date: 03/10/24 Status: Ordered Completed/Discontinued Medications Medication Drug Class(es) Dates Sig (Normalized) Sig (Original) aspirin 81 mg delayed release oral tablet (2 sources) Platelet Aggregation Inhibitor, Nonsteroidal Anti-inflammatory Drug Start: 08-15-2019 End: 04-21-2024 take 1 tablet by mouth once daily Aspirin (Aspirin Low Dose) 81 mg Tablet,Delayed Release (Dr/Ec) Discontinued 81 MG PO Daily August 15, 2019 1:00am April 21, 2024 8:59am ciprofloxacin 500 mg oral tablet (7 sources) Quinolone Antimicrobial Start: 04-03-2024 take 1 tablet by mouth once daily Cipro 500 mg Tab 500 mg = 1 tab(s), Oral, Daily, Take 1 tablet the day before the procedure and 1 tablet after the procedure, # 2 tab(s), Refills(s) 0, Pharmacy: [id number], 167, cm, 03/24/24 8:57:00 EDT, Height/Length Dosing, 92.5, kg, 03/24/24 8:57:00 EDT, Weight Dosing Start Date: 04/03/24 Status: Ordered Problems Active Problems Problem Classification Problem Date Documented Da te Episodic/Chronic Acute posthemorrhagic anemia (1 source) Acute posthemorrhagic anemia; Translations: [Acute posthemorrhagic anemia] Onset: 03-08-2024 Episodic Administrative/social admission (5 sources) Counseling procedure with explicit context 04-25-2024 Episodic Asthma (20 sources) Uncomplicated mild persistent asthma 11-10-2022 Chronic Calculus of urinary tract (20 sources) Kidney stone; Translations: [History of calculus of kidney] Onset: 04-22-2024 04-23-2023 Episodic Cancer of esophagus (20 sources) Malignant tumor of esophagus; Translations: [Malignant neoplasm of esophagus, unspecified] Onset: 03-10-2024 Chronic Cancer of liver and intrahepatic bile duct (16 sources) Malignant neoplasm of liver 04-04-2024 Chronic Cardiac dysrhythmias (20 sources) Bradycardia 01-17-2022 Episodic Chronic kidney disease (20 sources) Chronic kidney disease stage 3A ; Translations: [Chronic kidney disease, stage 3a] Onset: 07-19-2022 Chronic Comment on above: Added at the request of Dr. Sampson, per outpatient [facility] policy. Congestive heart failure; nonhypertensive (20 sources) Diastolic dysfunction 01-19-2022 Chronic Coronary atherosclerosis and other heart disease (20 sources) Atherosclerotic heart disease of [place] coronary artery without angina pectoris; Translations: [Coronary arteriosclerosis] Onset: 12-14-2017 01-17-2022 Chronic Coronary atherosclerosis and other heart disease (3 sources) Presence of coronary angioplasty implant and graft; Translations: [PRESENCE OF CORONARY ANGIOPLASTY IMPLANT AND GRAFT] Onset: 01-16-2018 Episodic Deficiency and other anemia (1 source) Pancytopenia; Translations: [Other pancytopenia] Onset: 04-28-2024 Chronic Diseases of white blood cells (2 sources) Neutropenia; Translations: [Neutropenia, unspecified] Onset: 04-27-2024 Chronic Disorders of lipid metabolism (20 sources) Hyperlipidemia, unspecified; Translations: [Mixed hyperlipidemia] Onset: 12-14-2017 01-17-2022 Chronic Essential hypertension (20 sources) Essential (primary) hypertension; Translations: [Hypertensive disorder] Onset: 12-14-2017 01-17-2022 Chronic Fracture of upper limb (20 sources) Closed fracture of shaft of clavicle 08-14-2022 Episodic Gastrointestinal hemorrhage (1 source) Hematemesis; Translations: [Hematemesis] Onset: 03-08-2024 Episodic Hyperplasia of prostate (10 sources) Benign prostatic hypertrophy with outflow obstruction; Translations: [Benign prostatic hyperplasia with lower urinary tract symptoms] Onset: 04-22-2024 04-22-2024 Chronic Hypertension with complications and secondary hypertension (1 source) Chronic kidney disease due to hypertension; Translations: [Hypertensive chronic kidney disease with stage 1 through stage 4 chronic kidney disease, or unspecified chronic kidney disease] Onset: 07-19-2022 Chronic Malaise and fatigue (8 sources) Asthenia; Translations: [Weakness] Onset: 03-08-2024 Episodic Malignant neoplasm without specification of site (12 sources) Small cell carcinoma; 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] Onset: 04-27-2024 04-22-2024 Chronic Nutritional deficiencies (20 sources) Vitamin D deficiency 01-17-2022 Chronic Other aftercare (20 sources) Post-discharge follow-up 11-29-2023 Episodic Other aftercare (1 source) Long-term current use of drug therapy; Translations: [Other care home (current) drug therapy] Onset: 03-08-2024 Episodic Other and ill-defined heart disease (1 source) Cardiomegaly; Translations: [CARDIOMEGALY] Onset: 12-14-2017 Chronic Other and ill-defined heart disease (1 source) Heart disease; Translations: [Heart disease, unspecified] Onset: 04-20-2022 Chronic Other diseases of kidney and ureters (1 source) Urinary tract obstruction; Translations: [Hydronephrosis with renal and ureteral calculous obstruction] Onset: 12-21-2023 Episodic Other ear and sense organ disorders (20 sources) Hearing loss 05-14-2023 Chronic Other gastrointestinal disorders (1 source) Diarrhea; Translations: [Diarrhea, unspecified] Onset: 03-08-2024 Episodic Other lower respiratory disease (3 sources) Shortness of breath; Translations: [SHORTNESS OF BREATH] Onset: 12-14-2017 Episodic Other lower respiratory disease (20 sources) Dyspnea on exertion 01-17-2022 Episodic Other [...] Chronic Other nutritional; endocrine; and metabolic disorders (2 sources) Obesity; Translations: [Obesity, unspecified] Onset: 04-20-2022 Chronic Other screening for suspected conditions (not mental disorders or infectious disease) (9 sources) CT of pelvis abnormal 04-22-2024 Chronic Other screening for suspected conditions (not mental disorders or infectious disease) (6 sources) Abnormal result of other cardiovascular function study; Translations: [Imaging of abdomen abnormal] Onset: 12-14-2017 Episodic Residual codes; unclassified (2 sources) Patient encounter status; Translations: [Other specified health status] Onset: 08-14-2022 Episodic Residual codes; unclassified (20 sources) H/O: risk factor 03-10-2024 Episodic Residual codes; unclassified (1 source) Contact with and (suspected) exposure to other hazardous, chiefly nonmedicinal, chemicals; Translations: [Exposure to potentially harmful entity (event)] Onset: 03-17-2024 Episodic Transient cerebral ischemia (20 sources) Transient cerebral ischemia; Translations: [Transient cerebral ischemic attack, unspecified] Onset: 03-08-2024 11-29-2023 Chronic Unclassified (2 sources) Unknown / UNK(Unknown) Onset: 12-14-2017 Unclassified (20 sources) History of cardiac catheterization 01-17-2022 Unclassified (20 sources) Obstructive hydronephrosis 12-21-2023 Viral infection (20 sources) Disease caused by 2019-nCoV 11-29-2023 Past or Other Problems Problem Classification Problem Date Documented Da te Episodic/Chronic Other aftercare (1 source) 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; Translations: [SENIOR CARE (CURRENT) USE OF ASPIRIN] Onset: 12-14-2017 Episodic Screening and history of mental health and substance abuse codes (1 source) Personal history of nicotine dependence; Translations: [PERSONAL HISTORY OF NICOTINE DEPENDENCE] Onset: 12-14-2017 Episodic Spondylosis; intervertebral disc disorders; other back problems (1 source) Dorsalgia, unspecified; Translations: [DORSALGIA, UNSPECIFIED] Onset: 12-14-2017 Episodic Results Test Name Value Interpretation Reference Range Facil ity Ambulatory Visit Summaryon 0 05-12-2024 Ambulatory Visit Summary Ambulatory Visit Summary JAMAICA CORRIGAN :1945 Visit Date:05/12/2024 Ambulatory Visit Instructions Your Diagnosis Hospital discharge follow-up Primary neuroendocrine carcinoma of esophagus Fever presenting with conditions classified elsewhere Neutropenic fever Primary hypertension Neoplastic (malignant) related fatigue BMI 31.0-31.9,adult Class 1 obesity due to excess calories in adult Nonsmoker These Are Your Goals Complications of Hypertension Avoided - Not met Interventions: Follow low sodium diet - Progressing Keep follow up appointments with provider and complete testing as directed - Progressing Monitor and keep BP log; at least 3 days per week - Not done Review educational material - Done Take Medications as Prescribed - Progressing Complications of Kidney Disease Avoided - Not met Interventions: Avoid high sodium, potassium foods such as; bananas, avacados, canned soups, pickled foods, etc... - Progressing Complete testing/ blood work as directed per provider - Progressing Keep follow up appointments with provider as directed - Progressing Review educational material Complications of Hyperlipidemia avoided - Not met Interventions: Complete bloodwork as directed by provider - Progressing Keep follow up appointments as scheduled - Progressing Maintain active healthy lifestyle and avoid foods high in saturated fats - Progressing Review educational material - Done Take Medications as Prescribed - Progressing CAD complications avoided - Not met Interventions: Keep follow up appointments as scheduled and complete testing, bloodwork as directed by provider - Progressing Maintain an active healthy lifestyle - Progressing Review educational material - Done Take medications as prescribed - Progressing Your Care Team Attending Physician - Betina Sampson MD Primary Care Physician - Betina Sampson MD This Is Your Medications List [facility] Prescription (Outpatient physical therapy) cholecalciferol (D3) isosorbide mononitrate (isosorbide mononitrate 30 mg ER Tab) magnesium oxide metoprolol (Lopressor) ondansetron (ondansetron 8 mg Tab) pantoprazole (Pantoprazole [address] Tab) prochlorperazine (prochlorperazine 10 mg Tab) simvastatin Procedures Performed Insertion of peripherally inserted central venous access device, with subcutaneous port; age 5 years or older (04/16/2024), Esophagogastroduodenoscop y (03/09/2024), Cystoscopic laser lithotripsy of ureteric calculus (05/24/2023), ESWL of kidney (05/03/2023), Cystoscopic insertion of ureteric stent (04/07/2023), Placement of stent in cardiac conduit (11/2017), Colonoscopy (2017), Carpal tunnel syndrome of left wrist, Carpal tunnel syndrome of right wrist, Kidney stone, Port. Discharge Vitals Temperature (Temporal Artery) 36.7 ?C Heart Rate (Peripheral) 70 Respiratory Rate 16 Blood Pressure 92/60 Height 170 cm Height 67 in Weight 90.7 kg Weight 199.54 lb BMI 31.38 What to do next Scheduled Follow-Up Appointments Sunday 2:00 PM EDT With: Where: [facility] Sunday 2:30 PM EDT With: Where: [facility] Sunday 8:30 AM EDT With: Betina Sampson MD Where: [address] [address]- Sunday 2:00 PM EDT With: Where: [facility] Sunday 10:20 AM EDT With: Terell Zapata DO Where: [facility] Sunday 11:00 AM EDT With: Where: [facility] 2023 2:00 PM EDT With: Where: [facility] Sunday 11:00 AM EDT With: Where: [facility] Sunday 8:00 AM EDT With: Where: [address] [address]- Sunday 10:15 AM EST With: Betina Sampson MD Where: [address] [id number]- Sunday 8:00 AM EDT With: Zachary ELAM MD Where: [facility] [address] [place] [address]- Medications What How Much When Why Instructions Unchanged cholecalciferol (D3) 125 Microgram By Mouth Every day Unchanged isosorbide mononitrate (isosorbide mononitrate 30 mg ER Tab) 1 Tablets By Mouth Once a day (in the morning) Unchanged magnesium oxide 420 Milligram By Mouth Once a day (at bedtime) Unchanged metoprolol (Lopressor) 50 mg (take one- half tablet) By Mouth 2 times a day Unchanged Misc Prescription (Outpatient physical therapy) 0 Weakness Eval, treat and make recommendations Unchanged ondansetron (ondansetron 8 mg Tab) 8 Milligram By Mouth Every 8 hours as needed for Nausea Malignant neoplasm of lower third of esophagus Unchanged pantoprazole (Pantoprazole 40 mg (more content not included)... Normal [facility] CBC w/ Auto Diffon 4 Basophils/100 WBC (Bld) 0.6 % Normal 0.0-2.0 [facility] Comment on above: Performed By: #### 2 [id number] #### [facility] [address] [place] [address] Basophils/Leukocyte s Auto (Bld) [Pure # fraction] 0.1 E9/L Normal 0.0-0.2 [facility] Comment on above: Performed By: #### 2 [id number] #### [facility] [address] [place] [address] Dohle body LM Ql (Bld) PRESENT Invalid Interpretation Code [facility] Comment on above: Performed By: #### 2 [id number] #### [facility] [address] [place] [address] Eosinophils (Bld) [#/Vol] 0.0 E9/L Normal 0.0-0.5 [facility] Comment on above: Performed By: #### 2 [id number] #### [facility] [address] [place] [address] Eosinophils/100 WBC (Bld) 0.0 % Normal 0.0-8.0 [facility] Comment on above: Performed By: #### 2 [id number] #### [facility] [address] [place] [address] Erythrocyte distribution width (RBC) [Ratio] 16.0 % High 10.9-14.2 [facility] Comment on above: Performed By: #### 2 [id number] #### [facility] [address] [place] [address] Hematocrit (Bld) [Volume fraction] 31.1 % Low 37.7-49.0 [facility] Comment on above: Performed By: #### 2 [id number] #### [facility] [address] [place] [address] Hemoglobin (Bld) [Mass/Vol] 10.7 g/dL Low 13.5-17.5 [facility] Comment on above: Performed By: #### 2 [id number] #### [facility] [address] [place] [address] Lymphocytes (Bld) [#/Vol] 1.7 E9/L Normal 1.0-4.0 [facility] Comment on above: Performed By: #### 2 [id number] #### [facility] [address] [place] [address] Lymphocytes/100 WBC (Bld) 9.5 % Low 14.0-50.0 [facility] Comment on above: Performed By: #### 2 [id number] #### [facility] [address] [place] [address] MCH (RBC) [Entitic mass] 29.5 pg Normal 27.0-34.0 [facility] Comment on above: Performed By: #### 2 [id number] #### [facility] [address] [place] [address] MCHC (RBC) [Mass/Vol] 34.4 g/dL Normal 31.4-36.0 [facility] Comment on above: Performed By: #### 2 [id number] #### [facility] [address] [place] [address] MCV (RBC) [Entitic vol] 85.7 fL Normal 80.0-100.0 [facility] Comment on above: Performed By: #### 2 [id number] #### [facility] [address] [place] [address] Monocytes (Bld) [#/Vol] 0.1 E9/L Low 0.2-1.0 [facility] Comment on above: Performed By: #### 2 [id number] #### [facility] [address] [place] [address] Neutrophils (Bld) [#/Vol] 15.8 E9/L High 2.0-7.5 [facility] Comment on above: Performed By: #### 2 342161 #### [facility] [address] [place] [address] Neutrophils/100 WBC (Bld) 89.1 % High 36.0-75.0 [facility] Comment on above: Performed By: #### 2 [id number] #### [facility] [address] [place] [address] Platelet 398.0 E9/L Normal 150.0-500.0 [facility] Comment on above: Performed By: #### 2 [id number] #### [facility] [address] [place] [address] Platelet mean volume (Bld) [Entitic vol] 7.1 fL Normal 6.4-10.8 [facility] Comment on above: Performed By: #### 2 155019 #### [facility] [address] [place] [address] RBC (Bld) [#/Vol] 3.6 E12/L Low 4.3-5.9 [facility] Comment on above: Performed By: #### 2 [id number] #### [facility] [address] [place] [address] RBC size Nom (Bld) NORMAL Invalid Interpretation Code [facility] Comment on above: Performed By: #### 2 [id number] #### [facility] [address] [place] [address] WBC corrected for nucl RBC Auto (Bld) [#/Vol] 17.8 E9/L High 4.0-11.0 [facility] Comment on above: Performed By: #### 2 [id number] #### [facility] [address] [place] [address] CHEMISTRYOrdered By: SYSTEM SYSTEM on 05-12-2024 Albumin [Mass/Vol] 3.4 g/dL Normal 3.3 - 5.0 gm/dL R emisol Chem Albumin/Globulin [Mass ratio] 1.3 {ratio} Normal 1.1 - 2.2 Remisol Chem ALP [Catalytic activity/Vol] 92 [iU]/d Normal 21 - 98 Int._Unit/L Remisol Chem ALT No additional P-5'-P [Catalytic activity/Vol] 15 [iU]/d Normal 6 - 46 Int._Unit/L Remisol Chem Anion gap [Moles/Vol] 11 mmol/L Normal 6 - 16 mEq/L Remisol Chem AST [Catalytic activity/Vol] 13 [iU]/d Normal 5 - 43 Int._Unit/L Remisol Chem Bilirubin [Mass/Vol] 0.4 mg/dL Normal 0.0 - 1.1 mg/dL Remisol Chem Calcium [Mass/Vol] 8.4 mg/dL Low 8.9 - 11. 1 mg/dL Remisol Chem Chloride [Moles/Vol] 104 mmol/L Normal 101 - 111 mmol/L Remisol Chem CO2 [Moles/Vol] 26 mmol/L Normal 21 - 31 mmol/L Remis ol Chem Creatinine [Mass/Vol] 1.0 mg/dL Normal 0.5 - 1.3 mg/dL Remisol Chem eGFR 76 mL/min/1.73 m2 Normal >=59mL/min /1.73 m2 Remisol Chem Globulin (S) [Mass/Vol] 2.7 g/dL Normal 1.4 - 4.0 gm/dL Remisol Chem Glucose [Mass/Vol] 91 mg/dL Normal 55 - 199 mg/dL Re misol Chem Potassium [Moles/Vol] 4.3 mmol/L Normal 3.5 - 5.3 mmol/L Remisol Chem Protein [Mass/Vol] 6.1 g/dL Normal 6.0 - 7.8 gm/dL R emisol Chem Sodium [Moles/Vol] 137 mmol/L Normal 135 - 145 mmol/L Remisol Chem Urea nitrogen [Mass/Vol] 23 mg/dL High 5 - 21 mg/dL Remisol Chem Urea nitrogen/Creatinine [Mass ratio] 23 mg/mg High 10 - 20 Remisol Chem CMPon 05-12-2024 Albumin [Mass/Vol] 3.4 g/dL Normal 3.3-5.0 [facility] Comment on above: Performed By: #### 2 [id number] #### [facility] [address] [place] [address] Albumin/Globulin (S) [Mass conc ratio] 1.3 Normal 1.1-2.2 [facility] Comment on above: Performed By: #### 2 [id number] #### [facility] [address] [place] [address] ALP [Catalytic activity/Vol] 92 Int._Unit/L Normal 21-98 [facility] Comment on above: Performed By: #### 2 [id number] #### [facility] [address] [place] [address] ALT No additional P-5'-P [Catalytic activity/Vol] 15 Int._Unit/L Normal 6-46 [facility] Comment on above: Performed By: #### 2 [id number] #### [facility] [address] [place] [address] Anion gap [Moles/Vol] 11 mmol/L Normal 6-16 [facility] Comment on above: Performed By: #### 2 073052 #### [facility] [address] [place] [address] AST [Catalytic activity/Vol] 13 Int._Unit/L Normal 5-43 [facility] Comment on above: Performed By: #### 2 544009 #### [facility] [address] [place] [address] Bilirubin [Mass/Vol] 0.4 mg/dL Normal 0.0-1.1 [facility] Comment on above: Performed By: #### 2 080473 #### [facility] [address] [place] [address] Calcium [Mass/Vol] 8.4 mg/dL Low 8.9-11.1 [facility] Comment on above: Performed By: #### 2 525667 #### [facility] [address] [place] [address] Chloride [Moles/Vol] 104 mmol/L Normal 101-111 [facility] Comment on above: Performed By: #### 2 564832 #### [facility] [address] [place] [address] CO2 [Moles/Vol] 26 mmol/L Normal 21-31 [facility] Comment on above: Performed By: #### 2 879117 #### [facility] [address] [place] [address] Creatinine [Mass/Vol] 1.0 mg/dL Normal 0.5-1.3 [facility] Comment on above: Performed By: #### 2 438457 #### [facility] [address] [place] [address] Globulin (S) [Mass/Vol] 2.7 g/dL Normal 1.4-4.0 [facility] Comment on above: Performed By: #### 2 [id number] #### [facility] [address] [place] [address] Glucose [Mass/Vol] 91 mg/dL Normal 55-199 [facility] Comment on above: Performed By: #### 2 659174 #### [facility] [address] [place] [address] Potassium [Moles/Vol] 4.3 mmol/L Normal 3.5-5.3 [facility] Comment on above: Performed By: #### 2 035088 #### [facility] [address] [place] [address] Protein [Mass/Vol] 6.1 g/dL Normal 6.0-7.8 [facility] Comment on above: Performed By: #### 2 [id number] #### [facility] [address] [place] [address] Sodium [Moles/Vol] 137 mmol/L Normal 135-145 [facility] Comment on above: Performed By: #### 2 977953 #### [facility] [address] [place] [address] Urea nitrogen [Mass/Vol] 23 mg/dL High 5-21 [facility] Comment on above: Performed By: #### 2 [id number] #### [facility] [address] [place] [address] Urea nitrogen/Creatinine [Mass ratio] 23 No Units High 10-20 [facility] Comment on above: Performed By: #### 2 [id number] #### [facility] [address] [place] [address] Family Medicine Office/Clini c Noteon 05-12-2024 Family Medicine Office/Clinic Note Family Medicine Office/Clinic Note HPI Staff [place] is a 78 year old male presenting for hospital follow up TCM: Hospital: [facility] [place] Admission date: 04/27/24 Discharge date: 05/01/24 Symptoms the patient presented with: dizzy and passed out at home Dxed neutropenic fever, weakness Current concerns: had a bout of dizziness yesterday took his time moving around and did okay they also weren't aware that chemo affects the immune system and you lose your white blood cells, so ended up in hospital for 5 days due to the fever and no immune system. They have a lot to learn about cancer History of Present Illness - Pt is here for TCM. - See staff HPI. Review of Systems PHQ Score Initial Depression Screen Score: 0 SCORE Physical Exam Vitals & Measurements T: 36.7 ?C(Temporal Artery) HR: 70(Peripheral) RR: 16 BP: 92/60 SpO2: 98% HT: 67 in HT: 170 cm WT: 90.7 kg WT: 199.54 lb BMI: 31.38 General: alert, no acute distress ENMT: oral [...] treatment for conditions other than malignant neoplasm) Reviewed discharge summary. Reviewed TCM calls. All needs have been met. Ordered: Body Mass Index (BMI) documented 3008F Current tobacco non-user 1036F Depression Screening Negative 3352F Most recent diastolic blood pressure <80 mm Hg 3078F Patient screen for fall risk: no falls in last year or 1 fall with no injury in last year 1101F Systolic BP <130 mm Hg (Most Recent) 3074F 2. 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 Patient has finished the Levaquin. No more fevers since discharge. Ordered: Body Mass Index (BMI) documented 3008F Current tobacco non-user 1036F Depression Screening Negative 3352F Most recent diastolic blood pressure <80 mm Hg 3078F Patient screen for fall risk: no falls in last year or 1 fall with no injury in last year 1101F Systolic BP <130 mm Hg (Most Recent) 3074F 3. Fever presenting with conditions classified elsewhere (R50.81: Fever presenting with conditions classified elsewhere) As above Ordered: Body Mass Index (BMI) documented 3008F Current tobacco non-user 1036F Depression Screening Negative 3352F Most recent diastolic blood pressure <80 mm Hg 3078F Patient screen for fall risk: no falls in last year or 1 fall with no injury in last year 1101F Systolic BP <130 mm Hg (Most Recent) 3074F 4. Neutropenic fever (D70.9: Neutropenia, unspecified) As above Ordered: Body Mass Index (BMI) documented 3008F Current tobacco non-user 1036F Depression Screening Negative 3352F Most recent diastolic blood pressure <80 mm Hg 3078F Patient screen for fall risk: no falls in last year or 1 fall with no injury in last year 1101F Systolic BP <130 mm Hg (Most Recent) 3074F 5. Primary hypertension (I10: Essential (primary) hypertension) Patient's blood pressure is trending lower. Will change the patient to the metoprolol 25 and have him do half in the morning only. Ordered: Body Mass Index (BMI) documented 3008F Current tobacco non-user 1036F Depression Screening Negative 3352F Most recent diastolic blood pressure <80 mm Hg 3078F Patient screen for fall risk: no falls in last year or 1 fall with no injury in last year 1101F Systolic BP <130 mm Hg (Most Recent) 3074F 6. Neoplastic (malignant) related fatigue (R53.0: Neoplastic (malignant) related fatigue) Patient is feeling slightly stronger today. Concerned that the patient may be slightly hypotensive. Ordered: Body Mass Index (BMI) documented 3008F Current tobacco non-user 1036F Depression Screening Negative 3352F Most recent diastolic blood pressure <80 mm Hg 3078F Patient screen for fall risk: no falls in last year or 1 fall with no injury in last year 1101F Systolic BP <130 mm Hg (Most Recent) 3074F 7. BMI 31.0-31.9,adult (Z68.31: Body mass index [BMI] 31.0-31.9, adult) - BMI education added Ordered: Body Mass Index (BMI) documented 3008F Current tobacco non-user 1036F Depression Screening Negative 3352F Most recent diastolic blood pressure <80 mm Hg 3078F Patient screen for fall risk: no falls in last year or 1 fall with no injury in last year 1101F Systolic BP <130 mm Hg (Most Recent) 3074F 8. Class 1 obesity due to excess calories in adult (E66.09: Other obesity due to excess calories) - Diet and exercise advised Ordered: Body Mass Index (BMI) documented 3008F Current tobacco non-user 1036F Depression Screening Negative 3352F Most recent diastolic blood p (more content not included)... Normal [facility] Comment on above: Result Comment: Elec tronically Signed By: Adrián DELONG, Betina [email or web address].br\Date and Time Signed: 05/12/24 08:03 EDT HEMATOLOGYOrdered By: SYSTEM SYSTEM on 05-12-2024 Basophils/100 WBC (Bld) 0.6 % Normal 0.0 - 2.0 % Remisol Heme Basophils/Leukocyte s Auto (Bld) [Pure # fraction] 0.1 E9/L Normal 0.0 - 0.2 E9/L Remisol Heme Dohle body LM Ql (Bld) PRESENT *NA* (05/12/24 1:47 PM) Invalid Interpretation Code Remisol Heme Eosinophils (Bld) [#/Vol] 0.0 E9/L Normal 0.0 - 0.5 E9/L Remisol Heme Eosinophils/100 WBC (Bld) 0.0 % Normal 0.0 - 8.0 % Remisol Heme Erythrocyte distribution width (RBC) [Ratio] 16.0 % High 10.9 - 14.2 % Remisol Heme Hematocrit (Bld) [Volume fraction] 31.1 % Low 37.7 - 49.0 % Remisol Heme Hemoglobin (Bld) [Mass/Vol] 10.7 g/dL Low 13.5 - 17.5 gm/dL Remisol Heme Lymphocytes (Bld) [#/Vol] 1.7 E9/L Normal 1.0 - 4.0 E9/L Remisol Heme Lymphocytes/100 WBC (Bld) 9.5 % Low 14.0 - 50.0 % Remisol Heme MCH (RBC) [Entitic mass] 29.5 pg Normal 27.0 - 34.0 pg Remisol Heme MCHC (RBC) [Mass/Vol] 34.4 g/dL Normal 31.4 - 36.0 gm/dL Remisol Heme MCV (RBC) [Entitic vol] 85.7 fL Normal 80.0 - 100.0 fL Remisol Heme Monocytes (Bld) [#/Vol] 0.1 E9/L Low 0.2 - 1.0 E9/L Remisol Heme Monocytes/100 WBC (Bld) 0.8 % Low 4.0 - 14.0 % Remisol Heme Neutrophils (Bld) [#/Vol] 15.8 E9/L High 2.0 - 7.5 E9/L Remisol Heme Neutrophils/100 WBC (Bld) 89.1 % High 36.0 - 75.0 % Remisol Heme Platelet 398.0 E9/L Normal 150.0 - 500.0 E9/L Remisol Heme Platelet mean volume (Bld) [Entitic vol] 7.1 fL Normal 6.4 - 10.8 fL Remisol Heme RBC (Bld) [#/Vol] 3.6 E12/L Low 4.3 - 5.9 E12/L Re misol Heme RBC size Nom (Bld) NORMAL *NA* (05/12/24 1:47 PM) Invalid Interpretation Code Remisol Heme WBC corrected for nucl RBC Auto (Bld) [#/Vol] 17.8 E9/L High 4.0 - 11.0 E9/L Remisol Heme eGFRon 05-12-2024 eGFR 76 mL/min/1.73 m2 Normal >=59 [facility] Comment on above: Order Comment: Order added by Discern Expert. Performed By: #### 1 [id number] #### [facility] [address] [place] [address] CBC w/ Auto Diffon 4 Band form neutrophils/100 WBC (Bld) 8.0 % High 0.0-6.0 [facility] Comment on above: Performed By: #### 2 [id number] #### [facility] [address] [place] [address] Basophils (Bld) [#/Vol] 0.1 E9/L Normal 0.0-0.2 [facility] Comment on above: Performed By: #### 2 862060 #### [facility] [address] [place] [address] Eosinophils (Bld) [#/Vol] 0.0 E9/L Normal 0.0-0.5 [facility] Comment on above: Performed By: #### 2 [id number] #### [facility] [address] [place] [address] Eosinophils/100 WBC (Bld) 0.0 % Normal 0.0-8.0 [facility] Comment on above: Performed By: #### 2 957270 #### [facility] [address] [place] [address] Hypochromia Auto Ql (Bld) PRESENT Invalid Interpretation Code [facility] Comment on above: Performed By: #### 2 [id number] #### [facility] [address] [place] [address] Lymphocytes (Bld) [#/Vol] 2.1 E9/L Normal 1.0-4.0 [facility] Comment on above: Performed By: #### 2 067968 #### [facility] [address] [place] [address] Lymphocytes/100 WBC (Bld) 16.0 % Normal 14.0-50.0 [facility] Comment on above: Performed By: #### 2 [id number] #### [facility] [address] [place] [address] Metamyelocytes/Leuk ocytes Manual cnt (Bld) [Pure # fraction] 6.0 % High 0.0-0.0 [facility] Comment on above: Performed By: #### 2 [id number] #### [facility] [address] [place] [address] Monocytes (Bld) [#/Vol] 1.2 E9/L High 0.2-1.0 [facility] Comment on above: Performed By: #### 2 386465 #### [facility] [address] [place] [address] Myelocytes/100 WBC (Bld) 6.0 % High 0.0-0.0 [facility] Comment on above: Performed By: #### 2 677459 #### [facility] [address] [place] [address] Neutrophils (Bld) [#/Vol] 3.9 E9/L Invalid Interpretation Code [facility] Comment on above: Performed By: #### 2 338385 #### [facility] [address] [place] [address] Nucleated cells (Bld) [#/Vol] 1.0 % High 0.0-0.0 [facility] Comment on above: Performed By: #### 2 531643 #### [facility] [address] [place] [address] RBC size Nom (Bld) SEE MORPHOLOGY Invalid Interpretation Code [facility] Comment on above: Performed By: #### 2 [id number] #### [facility] [address] [place] [address] Segmented neutrophils/100 WBC (Bld) 39.0 % Normal 36.0-75.0 [facility] Comment on above: Performed By: #### 2 [id number] #### [facility] [address] [place] [address] Toxic granules LM Ql (Bld) PRESENT Invalid Interpretation Code [facility] Comment on above: Performed By: #### 2 318245 #### [facility] [address] [place] [address] Variant lymphocytes/100 WBC (Bld) 10.0 % High 0.0-0.0 [facility] Comment on above: Performed By: #### 2 771342 #### [facility] [address] [place] [address] WBC corrected for nucl RBC Auto (Bld) [#/Vol] 8.1 E9/L Normal 4.0-11.0 [facility] Comment on above: Performed By: #### 2 [id number] #### [facility] [address] [place] [address] Erythrocyte distribution width (RBC) [Ratio] 15.2 % High 10.9-14.2 [facility] Comment on above: Performed By: #### 2 543235 #### [facility] [address] [place] [address] Hematocrit (Bld) [Volume fraction] 32.5 % Low 37.7-49.0 [facility] Comment on above: Performed By: #### 2 [id number] #### [facility] [address] [place] [address] Hemoglobin (Bld) [Mass/Vol] 11.1 g/dL Low 13.5-17.5 [facility] Comment on above: Performed By: #### 2 767716 #### [facility] [address] [place] [address] MCH (RBC) [Entitic mass] 29.5 pg Normal 27.0-34.0 [facility] Comment on above: Performed By: #### 2 [id number] #### [facility] [address] [place] [address] MCHC (RBC) [Mass/Vol] 34.1 g/dL Normal 31.4-36.0 [facility] Comment on above: Performed By: #### 2 [id number] #### [facility] [address] [place] [address] MCV (RBC) [Entitic vol] 86.5 fL Normal 80.0-100.0 [facility] Comment on above: Performed By: #### 2 650013 #### [facility] [address] [place] [address] Platelet 205.0 E9/L Normal 150.0-500.0 [facility] Comment on above: Performed By: #### 2 096730 #### [facility] [address] [place] [address] Platelet mean volume (Bld) [Entitic vol] 7.6 fL Normal 6.4-10.8 [facility] Comment on above: Performed By: #### 2 [id number] #### [facility] [address] [place] [address] RBC (Bld) [#/Vol] 3.8 E12/L Low 4.3-5.9 [facility] Comment on above: Performed By: #### 2 [id number] #### [facility] [address] [place] [address] CHEMISTRYOrdered By: SYSTEM SYSTEM on 05-05-2024 Albumin [Mass/Vol] 3.8 g/dL Normal 3.3 - 5.0 gm/dL R emisol Chem Albumin/Globulin [Mass ratio] 1.5 {ratio} Normal 1.1 - 2.2 Remisol Chem ALP [Catalytic activity/Vol] 74 [iU]/d Normal 21 - 98 Int._Unit/L Remisol Chem ALT No additional P-5'-P [Catalytic activity/Vol] 23 [iU]/d Normal 6 - 46 Int._Unit/L Remisol Chem Anion gap [Moles/Vol] 11 mmol/L Normal 6 - 16 mEq/L Remisol Chem AST [Catalytic activity/Vol] 20 [iU]/d Normal 5 - 43 Int._Unit/L Remisol Chem Bilirubin [Mass/Vol] 0.4 mg/dL Normal 0.0 - 1.1 mg/dL Remisol Chem Calcium [Mass/Vol] 9.0 mg/dL Normal 8.9 - 11. 1 mg/dL Remisol Chem Chloride [Moles/Vol] 105 mmol/L Normal 101 - 111 mmol/L Remisol Chem CO2 [Moles/Vol] 26 mmol/L Normal 21 - 31 mmol/L Remis ol Chem Creatinine [Mass/Vol] 1.1 mg/dL Normal 0.5 - 1.3 mg/dL Remisol Chem Ferritin [Mass/Vol] 279 ng/mL Normal 24 - 336 ng/mL R emisol Chem Globulin (S) [Mass/Vol] 2.6 g/dL Normal 1.4 - 4.0 gm/dL Remisol Chem Glucose [Mass/Vol] 98 mg/dL Normal 55 - 199 mg/dL Re misol Chem Iron [Mass/Vol] 41 ug/dL Normal 35 - 153 mcg/dL [employer] Chem Iron binding capacity [Mass/Vol] 252 ug/dL Normal 250 - 400 mcg/dL Remisol Chem Iron saturation [Mass fraction] 16 % Low 20 - 50 % Remisol Chem Potassium [Moles/Vol] 4.1 mmol/L Normal 3.5 - 5.3 mmol/L Remisol Chem Protein [Mass/Vol] 6.4 g/dL Normal 6.0 - 7.8 gm/dL R emisol Chem Sodium [Moles/Vol] 138 mmol/L Normal 135 - 145 mmol/L Remisol Chem Transferrin [Mass/Vol] 180 mg/dL Low 200 - 370 mg/dL Remisol Chem Urea nitrogen [Mass/Vol] 17 mg/dL Normal 5 - 21 mg/dL Remisol Chem Urea nitrogen/Creatinine [Mass ratio] 16 mg/mg Normal 10 - 20 Remisol Chem CMPon 05-05-2024 Albumin [Mass/Vol] 3.8 g/dL Normal 3.3-5.0 [facility] Comment on above: Performed By: #### 2 [id number] #### [facility] [address] [place] [address] Albumin/Globulin (S) [Mass conc ratio] 1.5 Normal 1.1-2.2 [facility] Comment on above: Performed By: #### 2 [id number] #### [facility] [address] [place] [address] ALP [Catalytic activity/Vol] 74 Int._Unit/L Normal 21-98 [facility] Comment on above: Performed By: #### 2 [id number] #### [facility] [address] [place] [address] ALT No additional P-5'-P [Catalytic activity/Vol] 23 Int._Unit/L Normal 6-46 [facility] Comment on above: Performed By: #### 2 [id number] #### [facility] [address] [place] [address] Anion gap [Moles/Vol] 11 mmol/L Normal 6-16 [facility] Comment on above: Performed By: #### 2 [id number] #### [facility] [address] [place] [address] AST [Catalytic activity/Vol] 20 Int._Unit/L Normal 5-43 [facility] Comment on above: Performed By: #### 2 [id number] #### [facility] [address] [place] [address] Bilirubin [Mass/Vol] 0.4 mg/dL Normal 0.0-1.1 [facility] Comment on above: Performed By: #### 2 [id number] #### [facility] [address] [place] [address] Calcium [Mass/Vol] 9.0 mg/dL Normal 8.9-11.1 [facility] Comment on above: Performed By: #### 2 [id number] #### [facility] [address] [place] [address] Chloride [Moles/Vol] 105 mmol/L Normal 101-111 [facility] Comment on above: Performed By: #### 2 [id number] #### [facility] [address] [place] [address] CO2 [Moles/Vol] 26 mmol/L Normal 21-31 [facility] Comment on above: Performed By: #### 2 [id number] #### [facility] [address] [place] [address] Creatinine [Mass/Vol] 1.1 mg/dL Normal 0.5-1.3 [facility] Comment on above: Performed By: #### 2 [id number] #### [facility] [address] [place] [address] Globulin (S) [Mass/Vol] 2.6 g/dL Normal 1.4-4.0 [facility] Comment on above: Performed By: #### 2 [id number] #### [facility] [address] [place] [address] Glucose [Mass/Vol] 98 mg/dL Normal 55-199 [facility] Comment on above: Performed By: #### 2 [id number] #### [facility] [address] [place] [address] Potassium [Moles/Vol] 4.1 mmol/L Normal 3.5-5.3 [facility] Comment on above: Performed By: #### 2 [id number] #### [facility] [address] [place] [address] Protein [Mass/Vol] 6.4 g/dL Normal 6.0-7.8 [facility] Comment on above: Performed By: #### 2 [id number] #### [facility] [address] [place] [address] Sodium [Moles/Vol] 138 mmol/L Normal 135-145 [facility] Comment on above: Performed By: #### 2 [id number] #### [facility] [address] [place] [address] Urea nitrogen [Mass/Vol] 17 mg/dL Normal 5-21 [facility] Comment on above: Performed By: #### 2 [id number] #### [facility] [address] [place] [address] Urea nitrogen/Creatinine [Mass ratio] 16 No Units Normal 10-20 [facility] Comment on above: Performed By: #### 2 [id number] #### [facility] [address] [place] [address] Ferritinon 05-05-2024 Ferritin [Mass/Vol] 279 ng/mL Normal 24-336 [facility] Comment on above: Performed By: #### 2 [id number] #### [facility] [address] [place] [address] HEMATOLOGYOrdered By: Amarjit Frazier on 05-05-2024 Band form neutrophils/100 WBC (Bld) 8.0 % High 0.0 - 6.0 % Remisol Heme Basophils (Bld) [#/Vol] 0.1 E9/L Normal 0.0 - 0.2 E9/L Remisol Heme Basophils/100 WBC (Bld) 1.0 % Normal 0.0 - 2.0 % Remisol Heme Eosinophils (Bld) [#/Vol] 0.0 E9/L Normal 0.0 - 0.5 E9/L Remisol Heme Eosinophils/100 WBC (Bld) 0.0 % Normal 0.0 - 8.0 % Remisol Heme Hypochromia Auto Ql (Bld) PRESENT *NA* (05/05/24 1:52 PM) Invalid Interpretation Code Remisol Heme Lymphocytes (Bld) [#/Vol] 2.1 E9/L Normal 1.0 - 4.0 E9/L Remisol Heme Lymphocytes/100 WBC (Bld) 16.0 % Normal 14.0 - 50.0 % Remisol Heme Metamyelocytes/Leuk ocytes Manual cnt (Bld) [Pure # fraction] 6.0 % High 0.0 - 0.0 % Remisol Heme Monocytes (Bld) [#/Vol] 1.2 E9/L High 0.2 - 1.0 E9/L Remisol Heme Monocytes/100 WBC (Bld) 14.0 % Normal 4.0 - 14.0 % Remisol Heme Myelocytes/100 WBC (Bld) 6.0 % High 0.0 - 0.0 % Remisol Heme Neutrophils (Bld) [#/Vol] 3.9 E9/L Invalid Interpretation Code Remisol Heme Nucleated cells (Bld) [#/Vol] 1.0 % High 0.0 - 0.0 % Remisol Heme RBC size Nom (Bld) SEE MORPHOLOGY *NA* (05/05/24 1:52 PM) Invalid Interpretation Code Remisol Heme Segmented neutrophils/100 WBC (Bld) 39.0 % Normal 36.0 - 75.0 % Remisol Heme Toxic granules LM Ql (Bld) PRESENT *NA* (05/05/24 1:52 PM) Invalid Interpretation Code Remisol Heme Variant lymphocytes/100 WBC (Bld) 10.0 % High 0.0 - 0.0 % Remisol Heme WBC corrected for nucl RBC Auto (Bld) [#/Vol] 8.1 E9/L Normal 4.0 - 11.0 E9/L Remisol Heme HEMATOLOGYOrdered By: SYSTEM SYSTEM on 05-05-2024 Erythrocyte distribution width (RBC) [Ratio] 15.2 % High 10.9 - 14.2 % Remisol Heme Hematocrit (Bld) [Volume fraction] 32.5 % Low 37.7 - 49.0 % Remisol Heme Hemoglobin (Bld) [Mass/Vol] 11.1 g/dL Low 13.5 - 17.5 gm/dL Remisol Heme MCH (RBC) [Entitic mass] 29.5 pg Normal 27.0 - 34.0 pg Remisol Heme MCHC (RBC) [Mass/Vol] 34.1 g/dL Normal 31.4 - 36.0 gm/dL Remisol Heme MCV (RBC) [Entitic vol] 86.5 fL Normal 80.0 - 100.0 fL Remisol Heme Platelet 205.0 E9/L Normal 150.0 - 500.0 E9/L Remisol Heme Platelet mean volume (Bld) [Entitic vol] 7.6 fL Normal 6.4 - 10.8 fL Remisol Heme RBC (Bld) [#/Vol] 3.8 E12/L Low 4.3 - 5.9 E12/L Re misol Heme Ironon 05-05-2024 Iron [Mass/Vol] 41 microgram/dL Normal 35-153 [facility] Comment on above: Performed By: #### 2 [id number] #### [facility] [address] [place] [address] Iron Saturationon 05-05-2024 Iron binding capacity [Mass/Vol] 252 microgram/dL Normal 250-400 [facility] Comment on above: Performed By: #### 2 [id number] #### [facility] [address] [place] [address] Iron saturation [Mass fraction] 16 % Low 20-50 [facility] Comment on above: Performed By: #### 2 [id number] #### [facility] [address] [place] [address] 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 Referral Reason: Care coordination Case Type: Transition Care Management Risk Score: -- Case Status: Enrolled (May 05, 2024) Date Assigned: May 02, 2024 Assigned By: Tha Khalil Date Enrolled: May 05, 2024 Assigned Primary Personnel: Tha Khalil Assigned Secondary Personnel: -- Case Physician: Adrián DELONG, Betina Anna Problems Ongoing Abnormal CT scan, pelvis 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 BPH with urinary obstruction Bradycardia CAD in [place] artery Chronic kidney disease, stage 3a Closed displaced fracture of shaft of right clavicle COVID Dyspnea on exertion Hard of hearing 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 History of kidney stones HLD (hyperlipidemia) Hospital discharge follow-up Hx of cardiac catheterization Malignant neoplasm of lower third of esophagus Mild diastolic dysfunction Mild persistent asthma without complication Neoplastic (malignant) related fatigue Other specified counseling Primary hypertension Renal stone Small cell carcinoma TIA on medication Ureteral stone with hydronephrosis Vitamin D deficiency Historical Esophageal cancer Procedure/Surgical History Insertion of peripherally inserted central venous access device, with subcutaneous port; age 5 years or older (04/16/2024), Esophagogastroduodenoscop y (03/09/2024), Cystoscopic laser lithotripsy of ureteric calculus (05/24/2023), ESWL of kidney (05/03/2023), Cystoscopic insertion of ureteric stent (04/07/2023), Placement of stent in cardiac conduit (11/2017), Colonoscopy (2017), Carpal tunnel syndrome of left wrist, Carpal tunnel syndrome of right wrist, Kidney stone, Port. Home Medications D3, 125 mcg, Oral, Daily isosorbide mononitrate 30 mg ER Tab, 30 mg= 1 tab(s), Oral, qAM Levaquin 500 mg Tab, 500 mg= 1 tab(s), Oral, q24hr Lopressor, 50 mg (take one- half tablet), Oral, BID magnesium oxide, 420 mg, Oral, Once a day (at bedtime) ondansetron 8 mg Tab, 8 mg, Oral, q8hr, PRN, 3 refills Outpatient physical therapy, [address] Tab, 40 mg= 1 tab(s), Oral, Daily, 11 refills prochlorperazine 10 mg Tab, 10 mg, Oral, q6hr, PRN, 3 refills simvastatin, 10 mg, Oral, Daily Allergies No Known Medication Allergies Social History Alcohol - Denies Alcohol Use, 01/17/2022 Substance Abuse - Denies Substance Abuse, 01/17/2022 Tobacco - Denies Tobacco Use, 04/28/2024 Never (less than 100 in lifetime) Tobacco Use:. Never Smokeless Tobacco Use:. Household tobacco concerns: No., 04/22/2024 Family History Diabetes mellitus type 2: Father. Screenings and Assessments 05/05/24 09:57:00 Result Name Value Comment Phone Call Monitoring Consent Agreed to continue call Phone Verification Patient Information Full name, street address and date of verified CM Program Enrollment Provides verbal consent for enrollment Goals and Interventions Care Plan Goal: Complications of Hypertension Avoided Start Date: 2023 Target: - - Status: Not met Barriers: - - Comments: - - Intervention Frequency Status Photogrammetric Technician Review educational material - - Done - - Keep follow up appointments with provider and complete testing as directed - - Progressing - - Take Medications as Prescribed - - Progressing - - Monitor and keep BP log; at least 3 days per week - - Not done - - Follow low sodium diet - - Progressing - - Goal: Complications of Kidney Disease Avoided Start Date: 2023 Target: - - Status: Not met Barriers: - - Comments: - - Intervention Frequency Status Photogrammetric Technician Review educational material - - Done - - Keep follow up appointments with provider as directed - - Progressing - - Complete testing/ blood work as directed per provider - - Progressing - - Avoid high sodium, potassium foods such as; bananas, avacados, canned soups, pickled foods, etc... - - Progressing - - Goal: Complications of Hyperlipidemia avoided Start Date: 2023 Target: - - Status: Not met Barriers: - - Comments: - - Intervention Frequency Status Photogrammetric Technician Review educational material - - Done - - Keep follow up appointments as scheduled - - Progressing - - Take Medications as Prescribed - - Progressing - - Complete bloodwork as directed by provider - - Progressing - - Maintain active healthy lifestyle and avoid foods high in saturated fats - - Progressing - - Goal: CAD complications avoided Start Date: 2023 Target: - - Status: Not met Barriers: - - Comments: - - Intervention Frequency Status Photogrammetric Technician Review educational material - - Done - - Keep follow up appointments as scheduled and complete testing, bloodwo (more content not included)... Normal [facility] Transferrinon 05-05-2024 Transferrin [Mass/Vol] 180 mg/dL Low 200-370 [facility] Comment on above: Performed By: #### 2 [id number] #### [facility] [address] [place] [address] General Message Officeon [facility] Message Office [facility] Message Office --- --- --- --- --- --- --- --- --- From: Russ, Direct[employer]box To: [place] CORRIGAN Sent: 05/02/24 02:30:37 AM EDT Subject: Discharge Summary Ready to View A summary regarding your recent visit is available in the Documents section of your health record. Normal [facility] Path. Reviewon 05-02-2024 Path Review Mild anemia with thrombocytopenia and relative lymphocytosis Invalid Interpretation Code [facility] Comment on above: Performed By: #### 1 [id number] #### [facility] [address] [place] [address] BMPon 05-01-2024 Anion gap [Moles/Vol] 9 mmol/L Normal 6-16 [facility] Comment on above: Performed By: #### 2 [id number] #### [facility] [address] [place] [address] Calcium [Mass/Vol] 8.3 mg/dL Low 8.9-11.1 [facility] Comment on above: Performed By: #### 2 [id number] #### [facility] [address] [place] [address] Chloride [Moles/Vol] 108 mmol/L Normal 101-111 [facility] Comment on above: Performed By: #### 2 [id number] #### [facility] [address] [place] [address] CO2 [Moles/Vol] 24 mmol/L Normal 21-31 [facility] Comment on above: Performed By: #### 2 [id number] #### [facility] [address] [place] [address] Creatinine [Mass/Vol] 1.0 mg/dL Normal 0.5-1.3 [facility] Comment on above: Performed By: #### 2 [id number] #### [facility] [address] [place] [address] Glucose [Mass/Vol] 93 mg/dL Normal 55-199 [facility] Comment on above: Performed By: #### 2 [id number] #### [facility] [address] [place] [address] Potassium [Moles/Vol] 3.9 mmol/L Normal 3.5-5.3 [facility] Comment on above: Performed By: #### 2 [id number] #### [facility] [address] [place] [address] Sodium [Moles/Vol] 137 mmol/L Normal 135-145 [facility] Comment on above: Performed By: #### 2 [id number] #### [facility] [address] [place] [address] Urea nitrogen [Mass/Vol] 15 mg/dL Normal 5-21 [facility] Comment on above: Performed By: #### 2 [id number] #### [facility] [address] [place] [address] Urea nitrogen/Creatinine [Mass ratio] 15 No Units Normal 10-20 [facility] Comment on above: Performed By: #### 2 [id number] #### [facility] [address] [place] [address] CBC w/ Auto Diffon 4 Band form neutrophils/100 WBC (Bld) 26.0 % High 0.0-6.0 [facility] Comment on above: Performed By: #### 2 [id number] #### [facility] [address] [place] [address] Basophils (Bld) [#/Vol] 0.0 E9/L Normal 0.0-0.2 [facility] Comment on above: Performed By: #### 2 [id number] #### [facility] [address] [place] [address] Blasts Manual cnt (Bld) [#/Vol] 2.0 % High 0.0-0.0 [facility] Comment on above: Performed By: #### 2 [id number] #### [facility] [address] [place] [address] Dohle body LM Ql (Bld) PRESENT Invalid Interpretation Code [facility] Comment on above: Performed By: #### 2 [id number] #### [facility] [address] [place] [address] Eosinophils (Bld) [#/Vol] 0.1 E9/L Normal 0.0-0.5 [facility] Comment on above: Performed By: #### 2 108776 #### [facility] [address] [place] [address] Eosinophils/100 WBC (Bld) 2.0 % Normal 0.0-8.0 [facility] Comment on above: Performed By: #### 2 068254 #### [facility] [address] [place] [address] Hypochromia Auto Ql (Bld) PRESENT Invalid Interpretation Code [facility] Comment on above: Performed By: #### 2 [id number] #### [facility] [address] [place] [address] Lymphocytes (Bld) [#/Vol] 2.0 E9/L Normal 1.0-4.0 [facility] Comment on above: Performed By: #### 2 [id number] #### [facility] [address] [place] [address] Lymphocytes/100 WBC (Bld) 35.0 % Normal 14.0-50.0 [facility] Comment on above: Performed By: #### 2 [id number] #### [facility] [address] [place] [address] Metamyelocytes/Leuk ocytes Manual cnt (Bld) [Pure # fraction] 7.0 % High 0.0-0.0 [facility] Comment on above: Performed By: #### 2 [id number] #### [facility] [address] [place] [address] Monocytes (Bld) [#/Vol] 0.5 E9/L Normal 0.2-1.0 [facility] Comment on above: Performed By: #### 2 183582 #### [facility] [address] [place] [address] Myelocytes/100 WBC (Bld) 2.0 % High 0.0-0.0 [facility] Comment on above: Performed By: #### 2 [id number] #### [facility] [address] [place] [address] Neutrophils (Bld) [#/Vol] 2.2 E9/L Invalid Interpretation Code [facility] Comment on above: Performed By: #### 2 [id number] #### [facility] [address] [place] [address] RBC size Nom (Bld) SEE MORPHOLOGY Invalid Interpretation Code [facility] Comment on above: Performed By: #### 2 [id number] #### [facility] [address] [place] [address] Segmented neutrophils/100 WBC (Bld) 15.0 % Low 36.0-75.0 [facility] Comment on above: Performed By: #### 2 [id number] #### [facility] [address] [place] [address] Variant lymphocytes/100 WBC (Bld) 2.0 % High 0.0-0.0 [facility] Comment on above: Performed By: #### 2 [id number] #### [facility] [address] [place] [address] Erythrocyte distribution width (RBC) [Ratio] 14.8 % High 10.9-14.2 [facility] Comment on above: Performed By: #### 2 645255 #### [facility] [address] [place] [address] Hematocrit (Bld) [Volume fraction] 31.3 % Low 37.7-49.0 [facility] Comment on above: Performed By: #### 2 [id number] #### [facility] [address] [place] [address] Hemoglobin (Bld) [Mass/Vol] 10.5 g/dL Low 13.5-17.5 [facility] Comment on above: Performed By: #### 2 [id number] #### [facility] [address] [place] [address] MCH (RBC) [Entitic mass] 29.5 pg Normal 27.0-34.0 [facility] Comment on above: Performed By: #### 2 [id number] #### [facility] [address] [place] [address] MCHC (RBC) [Mass/Vol] 33.6 g/dL Normal 31.4-36.0 [facility] Comment on above: Performed By: #### 2 [id number] #### [facility] [address] [place] [address] MCV (RBC) [Entitic vol] 87.8 fL Normal 80.0-100.0 [facility] Comment on above: Performed By: #### 2 [id number] #### [facility] [address] [place] [address] Platelet mean volume (Bld) [Entitic vol] 7.6 fL Normal 6.4-10.8 [facility] Comment on above: Performed By: #### 2 [id number] #### [facility] [address] [place] [address] Platelets (Bld) [#/Vol] 106.0 E9/L Low 150.0-500.0 [facility] Comment on above: Performed By: #### 2 [id number] #### [facility] [address] [place] [address] RBC (Bld) [#/Vol] 3.6 E12/L Low 4.3-5.9 [facility] Comment on above: Performed By: #### 2 112921 #### [facility] [address] [place] [address] WBC corrected for nucl RBC Auto (Bld) [#/Vol] 5.5 E9/L Normal 4.0-11.0 [facility] Comment on above: Performed By: #### 2 [id number] #### [facility] [address] [place] [address] CHEMISTRYOrdered By: SYSTEM SYSTEM on 05-01-2024 Anion gap [Moles/Vol] 9 mmol/L Normal 6 - 16 mEq/L Remisol Chem Calcium [Mass/Vol] 8.3 mg/dL Low 8.9 - 11. 1 mg/dL Remisol Chem Chloride [Moles/Vol] 108 mmol/L Normal 101 - 111 mmol/L Remisol Chem CO2 [Moles/Vol] 24 mmol/L Normal 21 - 31 mmol/L Remis ol Chem Creatinine [Mass/Vol] 1.0 mg/dL Normal 0.5 - 1.3 mg/dL Remisol Chem eGFR 76 mL/min/1.73 m2 Normal >=59mL/min /1.73 m2 Remisol Chem Glucose [Mass/Vol] 93 mg/dL Normal 55 - 199 mg/dL Re misol Chem Potassium [Moles/Vol] 3.9 mmol/L Normal 3.5 - 5.3 mmol/L Remisol Chem Sodium [Moles/Vol] 137 mmol/L Normal 135 - 145 mmol/L Remisol Chem Urea nitrogen [Mass/Vol] 15 mg/dL Normal 5 - 21 mg/dL Remisol Chem Urea nitrogen/Creatinine [Mass ratio] 15 mg/mg Normal 10 - 20 Remisol Chem Discharge Note-Nursingon Discharge Note-Nursing Discharge Note-Nursing JAMAICA CORRIGAN :1945 Visit Date:04/27/2024 Inpatient Discharge Instructions Your Care Team Admitting Physician - Zachary YBARRA DO Consulting Physician - Terell Zapata DO Reason for Your Visit I got dizzy and passed out at home, I'm not sure why Your Diagnosis Neutropenic fever Weakness Primary neuroendocrine carcinoma of esophagus Pancytopenia Chronic kidney disease Coronary artery disease Dizziness Fever - Immunocompromised > 75 years Syncope/Near syncope Tests Performed Path. Review -- Results Pending -- Vancomycin Level Trough -- Results Pending -- XR Chest Single View Please visit your patient portal for your results or contact your primary care physician. This Is Your Medications List [facility] Prescription (Outpatient physical therapy) cholecalciferol (D3) isosorbide mononitrate (isosorbide mononitrate 30 mg ER Tab) levofloxacin (Levaquin 500 mg Tab) magnesium oxide metoprolol (Lopressor) ondansetron (ondansetron 8 mg Tab) pantoprazole (Pantoprazole [address] Tab) prochlorperazine (prochlorperazine 10 mg Tab) simvastatin Procedure History Insertion of peripherally inserted central venous access device, with subcutaneous port; age 5 years or older (04/16/2024), Esophagogastroduodenoscop y (03/09/2024), Cystoscopic laser lithotripsy of ureteric calculus (05/24/2023), ESWL of kidney (05/03/2023), Cystoscopic insertion of ureteric stent (04/07/2023), Placement of stent in cardiac conduit (11/2017), Colonoscopy (2017), Carpal tunnel syndrome of left wrist, Carpal tunnel syndrome of right wrist, Kidney stone, Port. Discharge Vitals Temperature (Oral) 36.7 ?C Heart Rate (Apical) 86 Respiratory Rate 18 Blood Pressure 118/84 What to do next Instructions From Your Doctor Event Name Event Result Pending Diagnostic Test Results None Discharge Instructions Return to ER if symptoms return or worsen. Take Levaquin once daily for 10 days as prescribed. Risk for tendon rupture with this medication - avoid any lifting greater than 5-10 lbs. Previously Scheduled Follow-Up Appointments Sunday 2:30 PM EDT With: Where: Oncology Sunday 10:20 AM EDT With: Elaine DELONG, Mallory Michaels Where: Oncology Sunday 11:00 AM EDT With: Where: Oncology Sunday 1:00 PM EDT With: Where: Oncology 2023 2:00 PM EDT With: Where: [facility] Sunday 2:00 PM EDT With: Where: [facility] Sunday 3:00 PM EDT With: Betina Sampson MD Where: [address] [address]- Sunday 2:30 PM EDT With: Where: [facility] Sunday 2:00 PM EDT With: Where: [facility] Sunday 8:00 AM EDT With: Where: [address] [place] [address]- Sunday 10:15 AM EST With: Betina Sampson MD Where: [address] [address]- Sunday 8:00 AM EDT With: Zachary ELAM MD Where: [facility] [address] [place], [place] [id number]- New Follow Up Appointments after Discharge Follow Up with Betina Sampson When: 05/12/2024 03:00 PM EDT Comments: Call for followup appointment Where: [address] [place], [place] [id number] (2) Follow Up with Mallory Henry When: Comments: Follow up as scheduled. Medications What How Much When Why Instructions Next Dose New levofloxacin (Levaquin 500 mg Tab) 1 Tablets By Mouth Every 24 hours Duration: [id number] 05/02/24 9am [facility] Prescription (Outpatient physical therapy) 0 Weakness Eval, treat and make recommendations Printed Prescription Changed ondansetron (ondansetron 8 mg Tab) 8 Milligram By Mouth Every 8 hours as needed for Nausea Malignant neoplasm of lower third of esophagus As needed Changed prochlorperazine (prochlorperazine 10 mg Tab) 10 Milligram By Mouth Every 6 hours as needed for Nausea Malignant neoplasm of lower third of esophagus As needed Unchanged cholecalciferol (D3) 125 Microgram By Mouth Every day 05/02/24 9am Unchanged isosorbide mononitrate (isosorbide mononitrate 30 mg ER Tab) 1 Tablets By Mouth Once a day (in the morning) 06/02/24 7:30am Unchanged magnesium oxide 420 Milligram By Mouth Once a day (at bedtime) 05/01/24 9pm Unchanged metoprolol (Lopressor) 50 mg (take one- half tablet) By Mouth 2 times a day 05/01/24 9pm Unchanged pantoprazole (Pantoprazole [address] Tab) 1 Tablets By Mouth Every day 05/02/24 9am Unchanged simvastatin 10 Milligram By Mouth Every day 05/02/24 9am Pharmacy Information [facility] (more content not included)... Normal [facility] HEMATOLOGYOrdered By: Veena Vicente on 05-01-2024 Band form neutrophils/100 WBC (Bld) 26.0 % High 0.0 - 6.0 % Remisol Heme Basophils (Bld) [#/Vol] 0.0 E9/L Normal 0.0 - 0.2 E9/L Remisol Heme Basophils/100 WBC (Bld) 0.0 % Normal 0.0 - 2.0 % Remisol Heme Blasts Manual cnt (Bld) [#/Vol] 2.0 % High 0.0 - 0.0 % Remisol Heme Dohle body LM Ql (Bld) PRESENT *NA* (05/01/24 6:44 AM) Invalid Interpretation Code Remisol Heme Eosinophils (Bld) [#/Vol] 0.1 E9/L Normal 0.0 - 0.5 E9/L Remisol Heme Eosinophils/100 WBC (Bld) 2.0 % Normal 0.0 - 8.0 % Remisol Heme Hypochromia Auto Ql (Bld) PRESENT *NA* (05/01/24 6:44 AM) Invalid Interpretation Code Remisol Heme Lymphocytes (Bld) [#/Vol] 2.0 E9/L Normal 1.0 - 4.0 E9/L Remisol Heme Lymphocytes/100 WBC (Bld) 35.0 % Normal 14.0 - 50.0 % Remisol Heme Metamyelocytes/Leuk ocytes Manual cnt (Bld) [Pure # fraction] 7.0 % High 0.0 - 0.0 % Remisol Heme Monocytes (Bld) [#/Vol] 0.5 E9/L Normal 0.2 - 1.0 E9/L Remisol Heme Monocytes/100 WBC (Bld) 9.0 % Normal 4.0 - 14.0 % Remisol Heme Myelocytes/100 WBC (Bld) 2.0 % High 0.0 - 0.0 % Remisol Heme Neutrophils (Bld) [#/Vol] 2.2 E9/L Invalid Interpretation Code Remisol Heme RBC size Nom (Bld) SEE MORPHOLOGY *NA* (05/01/24 6:44 AM) Invalid Interpretation Code Remisol Heme Segmented neutrophils/100 WBC (Bld) 15.0 % Low 36.0 - 75.0 % Remisol Heme Variant lymphocytes/100 WBC (Bld) 2.0 % High 0.0 - 0.0 % Remisol Heme HEMATOLOGYOrdered By: SYSTEM SYSTEM on 05-01-2024 Erythrocyte distribution width (RBC) [Ratio] 14.8 % High 10.9 - 14.2 % Remisol Heme Hematocrit (Bld) [Volume fraction] 31.3 % Low 37.7 - 49.0 % Remisol Heme Hemoglobin (Bld) [Mass/Vol] 10.5 g/dL Low 13.5 - 17.5 gm/dL Remisol Heme MCH (RBC) [Entitic mass] 29.5 pg Normal 27.0 - 34.0 pg Remisol Heme MCHC (RBC) [Mass/Vol] 33.6 g/dL Normal 31.4 - 36.0 gm/dL Remisol Heme MCV (RBC) [Entitic vol] 87.8 fL Normal 80.0 - 100.0 fL Remisol Heme Platelet mean volume (Bld) [Entitic vol] 7.6 fL Normal 6.4 - 10.8 fL Remisol Heme Platelets (Bld) [#/Vol] 106.0 E9/L Low 150.0 - 500.0 E9/L Remisol Heme RBC (Bld) [#/Vol] 3.6 E12/L Low 4.3 - 5.9 E12/L Re misol Heme WBC corrected for nucl RBC Auto (Bld) [#/Vol] 5.5 E9/L Normal 4.0 - 11.0 E9/L Remisol Heme Inpatient Clinical Summaryon 05-01-2024 Inpatient Clinical Summary Inpatient Clinical Summary [address] [address] Clinical Summary Person Information: Name: JAMAICA CORRIGAN Age: 78 Years : 1945 Sex: Male PCP: Betina Sampson MD Marital Status: Race: White Ethnicity: Non- or Language: Japanese Visit Id: Visit Reason: Dizziness; Syncope/Near syncope; Fever - Immunocompromised > 75 years; SENT BY DR.AL FEVER Speciality: Acuity: Enc Type: Inpatient Med Service: Medical Arrival: 04/27/2024 19:34:24 Discharge: Dispo Type: Admitted as IP to this Hosp Address: [address] [place] [id number] Provider Notes: Diagnosis: 1:Neutropenic fever; 2:Weakness; 3:Primary neuroendocrine carcinoma of esophagus; 4:Pancytopenia; 5:Chronic kidney disease; 6:Coronary artery disease Problems Active Other specified counseling Neoplastic (malignant) related fatigue 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 History of kidney stones Abnormal CT scan, pelvis Malignant neoplasm of lower third of esophagus (03/10/2024) 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 Ureteral stone with hydronephrosis COVID TIA on medication Hospital discharge follow-up Hard of hearing Renal stone Primary hypertension Chronic kidney disease, stage 3a Mild persistent asthma without complication Closed displaced fracture of shaft of right clavicle 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 Mild diastolic dysfunction Vitamin D deficiency Dyspnea on exertion Bradycardia HLD (hyperlipidemia) Hx of cardiac catheterization CAD in [place] artery Smoking Status: Never Smoker Functional Status: Sensory Deficits: Hearing deficit, left ear, Hearing deficit, right ear History of Falls: Mobility Assistance Prior to Admission: ADLs: Independent Current Level of Assistance for Self-Care/Mobility: Cognitive Status: Oriented x 3 Allergies No Known Medication Allergies Measurements: Height: 167.64 cm Weight: 91.1 kg Blood Pressure: 118 mmHg / 84 mmHg BMI: 32.1 kg/m2 Procedures No Procedures Documented Immunizations No Immunizations Documented This Visit Final Med List: cholecalciferol (D3) 125 Microgram By Mouth every day. isosorbide mononitrate (isosorbide mononitrate 30 mg ER Tab) 1 Tablets By Mouth once a day (in the morning). Refills: 0. levofloxacin (Levaquin 500 mg Tab) 1 Tablets By Mouth every 24 hours for 10 Days. Refills: 0. magnesium oxide 420 Milligram By Mouth once a day (at bedtime). metoprolol (Lopressor) 50 mg (take one- half tablet) By Mouth 2 times a day. Misc Prescription (Outpatient physical therapy) 0. Eval, treat and make recommendations. Refills: 0. ondansetron (ondansetron 8 mg Tab) 8 Milligram By Mouth every 8 hours as needed Nausea. Refills: 3. pantoprazole (Pantoprazole [address] Tab) 1 Tablets By Mouth every day. Refills: 11. prochlorperazine (prochlorperazine 10 mg Tab) 10 Milligram By Mouth every 6 hours as needed Nausea. Refills: 3. simvastatin 10 Milligram By Mouth every day. Care Team Members: Attending Physician: Zachary YBARRA DO Consulting Physician: Terell Zapata DO Referring Physician: Follow up: With: Address: When: Betina Sampson [facility] [place] [address] [facility] (2) 05/12/2024 3:00 PM Comments: Call for followup appointment With: Address: When: fahad Henry Comments: Follow up as scheduled. Type Location Start [facility] ONC Lab Port (FT) FT.ONCOLOGY 05/05/2024 2:30 PM 05/05/2024 2:45 PM Confirmed ONC Office Visit 20 (FT) FT.ONCOLOGY 05/06/2024 10:20 AM 05/06/2024 10:40 AM Confirmed ONC Carbo/SINGLE STAYER OPERATOR 16 (FT) FT.ONCOLOGY 05/06/2024 11:00 AM 05/06/2024 3:00 PM Confirmed ONC Etoposide (FT) FT.ONCOLOGY 05/07/2024 1:00 PM 05/07/2024 3:00 PM Confirmed ONC Etoposide (FT) FT.ONCOLOGY 05/08/2024 2:00 PM 05/08/2024 3:30 PM Confirmed ONC Lab Port (FT) FT.ONCOLOGY 05/12/2024 2:00 PM 05/12/2024 2:15 PM Confirmed FM Hospital Follow Up w/TCM [facility] [place] 05/12/2024 3:00 PM 05/12/2024 3:30 PM Confirmed ONC Lab Port (FT) FT.ONCOLOGY 05/19/2024 2:30 PM 05/19/2024 2:45 PM Confirmed ONC Lab Port (FT) FT.ONCOLOGY 05/27/2024 2:00 PM 05/27/2024 2:15 PM Confirmed FM Medicare Wellness Subsequent [facility] [place] 07/08/2024 8:00 AM 07/08/2024 9:00 AM Confirmed FM Open [facility] [place] 10/20/2024 10:15 AM 10/20/2024 10:30 AM Confirmed URO Office Visit [facility] [place] 12/26/2024 8:00 AM 12/26/2024 8:15 AM Confirmed Patient Education Information: Neutropenic Fever; Neutropenic Fever Normal [facility] Inpatient Patient Summaryon 05-01-2024 Inpatient Patient Summary Inpatient Patient Summary [place] [id number] Patient Discharge Instructions PERSON INFORMATION Name: JAMAICA CORRIGAN Date of : 1945 Current Date: 05/01/2024 12:56:03 PHYSICIANS Admitting Physician: Zachary YBARRA DO Primary Care Physician: Betina Sampson MD PCP Comment: Discharge Diagnosis: 1:Neutropenic fever; 2:Weakness; 3:Primary neuroendocrine carcinoma of esophagus; 4:Pancytopenia; 5:Chronic kidney disease; 6:Coronary artery disease Condition at Discharge: Improved JAMAICA CORRIGAN has been given the following list of follow-up instructions, prescriptions, and patient education materials: PATIENT FOLLOW-UP INFORMATION Diet: Discharge Activity: Discharge Restrictions: Wound Care Instructions: Remove Your Dressing In Days Call Your Doctor For: IF UNABLE TO CONTACT YOUR PHYSICIAN AND YOU FEEL IT IS AN EMERGENCY, GO TO THE NEAREST EMERGENCY ROOM OR CALL 911 Home Treatment: Devices/Equipment: Cane Special Services: Additional Instructions: Return to ER if symptoms return or worsen. Take Levaquin once daily for 10 days as prescribed. Risk for tendon rupture with this medication - avoid any lifting greater than 5-10 lbs. Primary Care Physician to provide the following pending test results: None Follow up: With: Address: When: Betina Sampson [address] [place] [address] [facility] (2) 05/12/2024 3:00 PM Comments: Call for followup appointment With: Address: When: Mallory Henry Comments: Follow up as scheduled. In the event that this physician does not participate in your insurance network, please consult with your insurance company to find a nearby participating provider. Type Location Start [facility] ONC Lab Port (FT) FT.ONCOLOGY 05/05/2024 2:30 PM 05/05/2024 2:45 PM Confirmed ONC Office Visit 20 (FT) FT.ONCOLOGY 05/06/2024 10:20 AM 05/06/2024 10:40 AM Confirmed ONC Carbo/SINGLE STAYER OPERATOR 16 (FT) FT.ONCOLOGY 05/06/2024 11:00 AM 05/06/2024 3:00 PM Confirmed ONC Etoposide (FT) FT.ONCOLOGY 05/07/2024 1:00 PM 05/07/2024 3:00 PM Confirmed ONC Etoposide (FT) FT.ONCOLOGY 05/08/2024 2:00 PM 05/08/2024 3:30 PM Confirmed ONC Lab Port (FT) FT.ONCOLOGY 05/12/2024 2:00 PM 05/12/2024 2:15 PM Confirmed Hospital Follow Up w/TCM [facility] 05/12/2024 3:00 PM 05/12/2024 3:30 PM Confirmed ONC Lab Port (FT) FT.ONCOLOGY 05/19/2024 2:30 PM 05/19/2024 2:45 PM Confirmed ONC Lab Port (FT) FT.ONCOLOGY 05/27/2024 2:00 PM 05/27/2024 2:15 PM Confirmed FM Medicare Wellness Subsequent [facility] 07/08/2024 8:00 AM 07/08/2024 9:00 AM Confirmed FM Open [facility] [place] 10/20/2024 10:15 AM 10/20/2024 10:30 AM Confirmed URO Office Visit [facility] NATTY Rehman 12/26/2024 8:00 AM 12/26/2024 8:15 AM Confirmed Comment: SHEKHAR Mccabe KARL J, have received the attached patient education materials/instructions and have verbalized understanding: Patient Signature ____ Date Clinican/Nurse Signature Date HERE ARE THE MEDICATION CHANGES THAT OCCURRED DURING YOUR HOSPITAL STAY New Medications [id number], [address] [place] [phone], [phone] levofloxacin (Levaquin 500 mg Tab) 1 Tablets By Mouth every 24 hours for 10 Days. Refills: 0. Last Dose: Next Dose: Printed Prescriptions Misc Prescription (Outpatient physical therapy) 0. Eval, treat and make recommendations. Refills: 0. Last Dose: Next Dose: Medications to Continue Taking That Have Changed Other Medications START: ondansetron (ondansetron 8 mg Tab) 8 Milligram By Mouth every 8 hours as needed Nausea. Refills: 3. Last Dose: Next Dose: STOP: ondansetron (ondansetron 8 mg Tab) 1 Tablets By Mouth every 8 hours as needed Nausea/Vomiting. Refills: 1. START: prochlorperazine (prochlorperazine 10 mg Tab) 10 Milligram By Mouth every 6 hours as needed Nausea. Refills: 3. Last Dose: Next Dose: STOP: prochlorperazine (prochlorperazine 10 mg Tab) 1 Tablets By Mouth every 6 hours as needed Nausea/Vomiting. Refills: 1. Medications to Continue with No Changes Other Medications cholecalciferol (D3) 125 Microgram By Mouth every day. Last Dose: Next Dose: isosorbide mononitrate (isosorbide mononitrate 30 mg ER Tab) 1 Tablets By Mouth once a day (in the morning). Refills: 0. Last Dose: Next Dose: magnesium oxide 420 Milligram By Mouth once a day (at bedtime). Last Dose: Next Dose: metoprolol (Lopressor) 50 mg (take one- half tablet) By Mouth 2 times a day. Last Dose: Nex (more content not included)... [facility] Interdisciplinary Note - Reji e Manageron 05-01-2024 Interdisciplinary Note - Community Manager Interdisciplinary Note - Community Manager CRM spoke with patient in room. Patient is alert and oriented and participates in discharge planning. No family in room. Patient white board updated, and CRM contact information provided. Discussed Dr Coffey will see patient today. Possible dc today as labs better and no fever for over 24 hrs. Patient denies any needs at discharge and had declined H/H or Para med. Lives with and she or son will transport at dc. . Reviewed Medicare rights, he denies any questions. [facility] Comment on above: Result Comment: Elec tronically Signed By: Uday SPAULDING, Apple\.br\Date and Time Signed: 05/01/24 09:45 EDT eGFRon 05-01-2024 eGFR 76 mL/min/1.73 m2 Normal >=59 [facility] Comment on above: Order Comment: Order added by Discern Expert. Performed By: #### 1 [id number] #### [facility] [address] [place] [address] BMPon 04-30-2024 Anion gap [Moles/Vol] 11 mmol/L Normal 6-16 [facility] Comment on above: Performed By: #### 2 [id number] #### [facility] [address] [place] [address] Calcium [Mass/Vol] 8.3 mg/dL Low 8.9-11.1 [facility] Comment on above: Performed By: #### 2 [id number] #### [facility] [address] [place] [address] Chloride [Moles/Vol] 106 mmol/L Normal 101-111 [facility] Comment on above: Performed By: #### 2 [id number] #### [facility] [address] [place] [address] CO2 [Moles/Vol] 24 mmol/L Normal 21-31 [facility] Comment on above: Performed By: #### 2 [id number] #### [facility] [address] [place] [address] Creatinine [Mass/Vol] 1.1 mg/dL Normal 0.5-1.3 [facility] Comment on above: Performed By: #### 2 [id number] #### [facility] [address] [place] [address] Glucose [Mass/Vol] 95 mg/dL Normal 55-199 [facility] Comment on above: Performed By: #### 2 [id number] #### [facility] [address] [place] [address] Potassium [Moles/Vol] 4.0 mmol/L Normal 3.5-5.3 [facility] Comment on above: Performed By: #### 2 [id number] #### [facility] [address] [place] [address] Sodium [Moles/Vol] 137 mmol/L Normal 135-145 [facility] Comment on above: Performed By: #### 2 [id number] #### [facility] [address] [place] [address] Urea nitrogen [Mass/Vol] 17 mg/dL Normal 5-21 [facility] Comment on above: Performed By: #### 2 [id number] #### [facility] [address] [place] [address] Urea nitrogen/Creatinine [Mass ratio] 16 No Units Normal 10-20 [facility] Comment on above: Performed By: #### 2 [id number] #### [facility] [address] [place] [address] CBC w/ Auto Diffon 4 Erythrocyte distribution width (RBC) [Ratio] 14.8 % High 10.9-14.2 [facility] Comment on above: Performed By: #### 2 [id number] #### [facility] [address] [place] [address] Hematocrit (Bld) [Volume fraction] 30.2 % Low 37.7-49.0 [facility] Comment on above: Performed By: #### 2 [id number] #### [facility] [address] [place] [address] Hemoglobin (Bld) [Mass/Vol] 10.6 g/dL Low 13.5-17.5 [facility] Comment on above: Performed By: #### 2 [id number] #### [facility] [address] [place] [address] MCH (RBC) [Entitic mass] 30.2 pg Normal 27.0-34.0 [facility] Comment on above: Performed By: #### 2 [id number] #### [facility] [address] [place] [address] MCHC (RBC) [Mass/Vol] 35.0 g/dL Normal 31.4-36.0 [facility] Comment on above: Performed By: #### 2 [id number] #### [facility] [address] [place] [address] MCV (RBC) [Entitic vol] 86.3 fL Normal 80.0-100.0 [facility] Comment on above: Performed By: #### 2 [id number] #### [facility] [address] [place] [address] Platelet 100.0 E9/L Low 150.0-500.0 [facility] Comment on above: Performed By: #### 2 [id number] #### [facility] [address] [place] [address] Platelet mean volume (Bld) [Entitic vol] 7.2 fL Normal 6.4-10.8 [facility] Comment on above: Performed By: #### 2 [id number] #### [facility] [address] [place] [address] RBC (Bld) [#/Vol] 3.5 E12/L Low 4.3-5.9 [facility] Comment on above: Performed By: #### 2 [id number] #### [facility] [address] [place] [address] WBC corrected for nucl RBC Auto (Bld) [#/Vol] 2.0 E9/L Abnormal 4.0-11.0 [facility] Comment on above: Performed By: #### 2 [id number] #### [facility] [address] [place] [address] Band form neutrophils/100 WBC (Bld) 6.0 % Normal 0.0-6.0 [facility] Comment on above: Performed By: #### 2 [id number] #### [facility] [address] [place] [address] Basophils (Bld) [#/Vol] 0.0 E9/L Normal 0.0-0.2 [facility] Comment on above: Performed By: #### 2 [id number] #### [facility] [address] [place] [address] [place] [address] Dohle body LM Ql (Bld) PRESENT Invalid Interpretation Code [facility] Comment on above: Performed By: #### 2 [id number] #### [facility] [address] [place] [address] Eosinophils (Bld) [#/Vol] 0.1 E9/L Normal 0.0-0.5 [facility] Comment on above: Performed By: #### 2 [id number] #### [facility] [address] [place] [address] Eosinophils/100 WBC (Bld) 7.0 % Normal 0.0-8.0 [facility] Comment on above: Performed By: #### 2 [id number] #### [facility] [address] [place] [address] Hypochromia Auto Ql (Bld) PRESENT Invalid Interpretation Code [facility] Comment on above: Performed By: #### 2 [id number] #### [facility] [address] [place] [address] Lymphocytes (Bld) [#/Vol] 1.5 E9/L Normal 1.0-4.0 [facility] Comment on above: Performed By: #### 2 [id number] #### [facility] [address] [place] [address] Lymphocytes/100 WBC (Bld) 58.0 % High 14.0-50.0 [facility] Comment on above: Performed By: #### 2 [id number] #### [facility] [address] [place] [address] Metamyelocytes/Leuk ocytes Manual cnt (Bld) [Pure # fraction] 2.0 % High 0.0-0.0 [facility] Comment on above: Performed By: #### 2 [id number] #### [facility] [address] [place] [address] Monocytes (Bld) [#/Vol] 0.1 E9/L Low 0.2-1.0 [facility] Comment on above: Performed By: #### 2 [id number] #### [facility] [address] [place] [address] Myelocytes/100 WBC (Bld) 1.0 % High 0.0-0.0 [facility] Comment on above: Performed By: #### 2 [id number] #### [facility] [address] [place] [address] Neutrophils (Bld) [#/Vol] 0.1 E9/L Invalid Interpretation Code [facility] Comment on above: Performed By: #### 2 [id number] #### [facility] [address] [place] [address] Nucleated cells (Bld) [#/Vol] 1.0 % High 0.0-0.0 [facility] Comment on above: Performed By: #### 2 [id number] #### [facility] [address] [place] [address] Polychromasia LM Ql (Bld) PRESENT Invalid Interpretation Code [facility] Comment on above: Performed By: #### 2 [id number] #### [facility] [address] [place] [address] RBC size Nom (Bld) SEE MORPHOLOGY Invalid Interpretation Code [facility] Comment on above: Performed By: #### 2 [id number] #### [facility] [address] [place] [address] Segmented neutrophils/100 WBC (Bld) 1.0 % Low 36.0-75.0 [facility] Comment on above: Performed By: #### 2 [id number] #### [facility] [address] [place] [address] Toxic granules LM Ql (Bld) PRESENT Invalid Interpretation Code [facility] Comment on above: Performed By: #### 2 [id number] #### [facility] [address] [place] [address] Variant lymphocytes/100 WBC (Bld) 16.0 % High 0.0-0.0 [facility] Comment on above: Performed By: #### 2 [id number] #### [facility] [address] [place] [address] [place] [address] CHEMISTRYOrdered By: Adi woodard on 04-30-2024 Vanco Tr 9 microgram/mL Low 10 - 20 mcg/mL Remiso l Chem CHEMISTRYOrdered By: SYSTEM SYSTEM on 04-30-2024 Anion gap [Moles/Vol] 11 mmol/L Normal 6 - 16 mEq/L Remisol Chem Calcium [Mass/Vol] 8.3 mg/dL Low 8.9 - 11. 1 mg/dL Remisol Chem Chloride [Moles/Vol] 106 mmol/L Normal 101 - 111 mmol/L Remisol Chem CO2 [Moles/Vol] 24 mmol/L Normal 21 - 31 mmol/L Remis ol Chem Creatinine [Mass/Vol] 1.1 mg/dL Normal 0.5 - 1.3 mg/dL Remisol Chem eGFR 68 mL/min/1.73 m2 Normal >=59mL/min /1.73 m2 Remisol Chem Glucose [Mass/Vol] 95 mg/dL Normal 55 - 199 mg/dL Re misol Chem Potassium [Moles/Vol] 4.0 mmol/L Normal 3.5 - 5.3 mmol/L Remisol Chem Sodium [Moles/Vol] 137 mmol/L Normal 135 - 145 mmol/L Remisol Chem Urea nitrogen [Mass/Vol] 17 mg/dL Normal 5 - 21 mg/dL Remisol Chem Urea nitrogen/Creatinine [Mass ratio] 16 mg/mg Normal 10 - 20 Remisol Chem Vanco Pk 30 microgram/mL Normal 20 - 40 mcg/mL Remis ol Chem HEMATOLOGYOrdered By: SYSTEM SYSTEM on 04-30-2024 Band form neutrophils/100 WBC (Bld) 6.0 % Normal 0.0 - 6.0 % Remisol Heme Basophils (Bld) [#/Vol] 0.0 E9/L Normal 0.0 - 0.2 E9/L Remisol Heme Basophils/100 WBC (Bld) 2.0 % Normal 0.0 - 2.0 % Remisol Heme Dohle body LM Ql (Bld) PRESENT *NA* (04/30/24 5:37 AM) Invalid Interpretation Code Remisol Heme Eosinophils (Bld) [#/Vol] 0.1 E9/L Normal 0.0 - 0.5 E9/L Remisol Heme Eosinophils/100 WBC (Bld) 7.0 % Normal 0.0 - 8.0 % Remisol Heme Erythrocyte distribution width (RBC) [Ratio] 14.8 % High 10.9 - 14.2 % Remisol Heme Hematocrit (Bld) [Volume fraction] 30.2 % Low 37.7 - 49.0 % Remisol Heme Hemoglobin (Bld) [Mass/Vol] 10.6 g/dL Low 13.5 - 17.5 gm/dL Remisol Heme Hypochromia Auto Ql (Bld) PRESENT *NA* (04/30/24 5:37 AM) Invalid Interpretation Code Remisol Heme Lymphocytes (Bld) [#/Vol] 1.5 E9/L Normal 1.0 - 4.0 E9/L Remisol Heme Lymphocytes/100 WBC (Bld) 58.0 % High 14.0 - 50.0 % Remisol Heme MCH (RBC) [Entitic mass] 30.2 pg Normal 27.0 - 34.0 pg Remisol Heme MCHC (RBC) [Mass/Vol] 35.0 g/dL Normal 31.4 - 36.0 gm/dL Remisol Heme MCV (RBC) [Entitic vol] 86.3 fL Normal 80.0 - 100.0 fL Remisol Heme Metamyelocytes/Leuk ocytes Manual cnt (Bld) [Pure # fraction] 2.0 % High 0.0 - 0.0 % Remisol Heme Monocytes (Bld) [#/Vol] 0.1 E9/L Low 0.2 - 1.0 E9/L Remisol Heme Monocytes/100 WBC (Bld) 7.0 % Normal 4.0 - 14.0 % Remisol Heme Myelocytes/100 WBC (Bld) 1.0 % High 0.0 - 0.0 % Remisol Heme Neutrophils (Bld) [#/Vol] 0.1 E9/L Invalid Interpretation Code Remisol Heme Nucleated cells (Bld) [#/Vol] 1.0 % High 0.0 - 0.0 % Remisol Heme Platelet 100.0 E9/L Low 150.0 - 500.0 E9/L Remisol Heme Platelet mean volume (Bld) [Entitic vol] 7.2 fL Normal 6.4 - 10.8 fL Remisol Heme Polychromasia LM Ql (Bld) PRESENT *NA* (04/30/24 5:37 AM) Invalid Interpretation Code Remisol Heme RBC (Bld) [#/Vol] 3.5 E12/L Low 4.3 - 5.9 E12/L Re misol Heme RBC size Nom (Bld) SEE MORPHOLOGY *NA* (04/30/24 5:37 AM) Invalid Interpretation Code Remisol Heme Segmented neutrophils/100 WBC (Bld) 1.0 % Low 36.0 - 75.0 % Remisol Heme Toxic granules LM Ql (Bld) PRESENT *NA* (04/30/24 5:37 AM) Invalid Interpretation Code Remisol Heme Variant lymphocytes/100 WBC (Bld) 16.0 % High 0.0 - 0.0 % Remisol Heme WBC corrected for nucl RBC Auto (Bld) [#/Vol] 2.0 E9/L Invalid Interpretation Code 4.0 - 11.0 E9/L Remisol Heme HEMATOLOGYOrdered By: Charles Celis on 04-30-2024 Path Review Leukopenia with thrombocytopenia and relative lymphocytosis and monocytosisBy Dr. Charles CelisCPT code 85/60 Invalid Interpretation Code [facility] [place] [facility] Interdisciplinary Note - Reji e Manageron 04-30-2024 Interdisciplinary Note - Community Manager Interdisciplinary Note - Community Manager CRM spoke with patient and in room. Patient is alert and oriented and participates in discharge planning. Patient white board updated, and CRM contact information provided. Discussed CRM spoke with [facility] who saw patient earlier today and will check with oncology to see if ANC is okay for dc today. Patient states he had a fever last PM. will need to be fever free for 24 hrs so will stay today. will transport and they deny needs at discharge . Declines H/H or Para med visits. Reviewed Medicare rights, they deny any questions. Gave them a copy of signed form. Normal [facility] Comment on above: Result Comment: Elec tronically Signed By: Uday SPAULDING, Apple\.br\Date and Time Signed: 04/30/24 13:12 EDT Path. Reviewon 04-30-2024 Path Review Leukopenia with thrombocytopenia and relative lymphocytosis and monocytosis Invalid Interpretation Code [facility] Comment on above: Performed By: #### 1 [id number] #### [facility] [address] [place] [address] Vanco Peakon 04-30-2024 Vanco Pk 30 microgram/mL Normal 20-40 [facility] Comment on above: Performed By: #### 2 [id number] #### [facility] [address] [place] [address] Vanco Troughon 04-30-2024 Vanco Tr 9 microgram/mL Low 10-20 [facility] Comment on above: Order Comment: juan miguel sent to Farheen Marino[address] 04/30/2024 22:14:27 EDT Performed By: #### 2 [id number] #### [facility] [address] [place] [address] eGFRon 04-30-2024 eGFR 68 mL/min/1.73 m2 Normal >=59 [facility] Comment on above: Order Comment: Order added by Discern Expert. Performed By: #### 1 [id number] #### [facility] [address] [place] [address] CBC w/ Auto Diffon 4 Basophils/100 WBC (Bld) 1.0 % Normal 0.0-2.0 [facility] Comment on above: Performed By: #### 2 [id number] #### [facility] [address] [place] [address] Basophils/Leukocyte s Auto (Bld) [Pure # fraction] 0.0 E9/L Normal 0.0-0.2 [facility] Comment on above: Performed By: #### 2 [id number] #### [facility] [address] [place] [address] Eosinophils (Bld) [#/Vol] 0.0 E9/L Normal 0.0-0.5 [facility] Comment on above: Performed By: #### 2 [id number] #### [facility] [address] [place] [address] Eosinophils/100 WBC (Bld) 2.3 % Normal 0.0-8.0 [facility] Comment on above: Performed By: #### 2 [id number] #### [facility] [address] [place] [address] Erythrocyte distribution width (RBC) [Ratio] 14.5 % High 10.9-14.2 [facility] Comment on above: Performed By: #### 2 [id number] #### [facility] [address] [place] [address] Hematocrit (Bld) [Volume fraction] 32.0 % Low 37.7-49.0 [facility] Comment on above: Performed By: #### 2 [id number] #### [facility] [address] [place] [address] Hemoglobin (Bld) [Mass/Vol] 11.1 g/dL Low 13.5-17.5 [facility] Comment on above: Performed By: #### 2 [id number] #### [facility] [address] [place] [address] Lymphocytes (Bld) [#/Vol] 0.8 E9/L Low 1.0-4.0 [facility] Comment on above: Performed By: #### 2 [id number] #### [facility] [address] [place] [address] Lymphocytes/100 WBC (Bld) 73.3 % High 14.0-50.0 [facility] Comment on above: Performed By: #### 2 751122 #### [facility] [address] [place] [address] MCH (RBC) [Entitic mass] 30.0 pg Normal 27.0-34.0 [facility] Comment on above: Performed By: #### 2 [id number] #### [facility] [address] [place] [address] MCHC (RBC) [Mass/Vol] 34.7 g/dL Normal 31.4-36.0 [facility] Comment on above: Performed By: #### 2 [id number] #### [facility] [address] [place] [address] MCV (RBC) [Entitic vol] 86.7 fL Normal 80.0-100.0 [facility] Comment on above: Performed By: #### 2 [id number] #### [facility] [address] [place] [address] Monocytes (Bld) [#/Vol] 0.2 E9/L Normal 0.2-1.0 [facility] Comment on above: Performed By: #### 2 [id number] #### [facility] [address] [place] [address] Neutrophils (Bld) [#/Vol] 0.1 E9/L Low 2.0-7.5 [facility] Comment on above: Performed By: #### 2 [id number] #### [facility] [address] [place] [address] Neutrophils/100 WBC (Bld) 6.3 % Low 36.0-75.0 [facility] Comment on above: Performed By: #### 2 [id number] #### [facility] [address] [place] [address] Platelet 98.0 E9/L Low 150.0-500.0 [facility] Comment on above: Performed By: #### 2 [id number] #### [facility] [address] [place] [address] Platelet mean volume (Bld) [Entitic vol] 7.3 fL Normal 6.4-10.8 [facility] Comment on above: Performed By: #### 2 [id number] #### [facility] [address] [place] [address] RBC (Bld) [#/Vol] 3.7 E12/L Low 4.3-5.9 [facility] Comment on above: Performed By: #### 2 164198 #### [facility] [address] [place] [address] WBC corrected for nucl RBC Auto (Bld) [#/Vol] 1.1 E9/L Abnormal 4.0-11.0 [facility] Comment on above: Result Comment: Crit ical Result Verified by Repeat Analysis Called to Deuce Diaz 04-29-2024 @1093 Results are consistent with previous pathologist review Performed By: #### 2 [id number] #### [facility] [address] [place] [address] CHEMISTRYOrdered By: SYSTEM SYSTEM on 04-29-2024 Albumin [Mass/Vol] 3.4 g/dL Normal 3.3 - 5.0 gm/dL R emisol Chem Albumin/Globulin [Mass ratio] 1.5 {ratio} Normal 1.1 - 2.2 Remisol Chem ALP [Catalytic activity/Vol] 55 [iU]/d Normal 21 - 98 Int._Unit/L Remisol Chem ALT No additional P-5'-P [Catalytic activity/Vol] 18 [iU]/d Normal 6 - 46 Int._Unit/L Remisol Chem Anion gap [Moles/Vol] 10 mmol/L Normal 6 - 16 mEq/L Remisol Chem AST [Catalytic activity/Vol] 14 [iU]/d Normal 5 - 43 Int._Unit/L Remisol Chem Bilirubin [Mass/Vol] 0.7 mg/dL Normal 0.0 - 1.1 mg/dL Remisol Chem Calcium [Mass/Vol] 8.4 mg/dL Low 8.9 - 11. 1 mg/dL Remisol Chem Chloride [Moles/Vol] 107 mmol/L Normal 101 - 111 mmol/L Remisol Chem CO2 [Moles/Vol] 24 mmol/L Normal 21 - 31 mmol/L Remis ol Chem Creatinine [Mass/Vol] 1.1 mg/dL Normal 0.5 - 1.3 mg/dL Remisol Chem eGFR 68 mL/min/1.73 m2 Normal >=59mL/min /1.73 m2 Remisol Chem Globulin (S) [Mass/Vol] 2.3 g/dL Normal 1.4 - 4.0 gm/dL Remisol Chem Glucose [Mass/Vol] 102 mg/dL Normal 55 - 199 mg/dL Re misol Chem Potassium [Moles/Vol] 4.0 mmol/L Normal 3.5 - 5.3 mmol/L Remisol Chem Protein [Mass/Vol] 5.7 g/dL Low 6.0 - 7.8 gm/dL R emisol Chem Sodium [Moles/Vol] 137 mmol/L Normal 135 - 145 mmol/L Remisol Chem Urea nitrogen [Mass/Vol] 16 mg/dL Normal 5 - 21 mg/dL Remisol Chem Urea nitrogen/Creatinine [Mass ratio] 14 mg/mg Normal 10 - 20 Remisol Chem CMPon 04-29-2024 Albumin [Mass/Vol] 3.4 g/dL Normal 3.3-5.0 [facility] Comment on above: Performed By: #### 2 [id number] #### [facility] [address] [place] [address] Albumin/Globulin (S) [Mass conc ratio] 1.5 Normal 1.1-2.2 [facility] Comment on above: Performed By: #### 2 [id number] #### [facility] [address] [place] [address] ALP [Catalytic activity/Vol] 55 Int._Unit/L Normal 21-98 [facility] Comment on above: Performed By: #### 2 [id number] #### [facility] [address] [place] [address] ALT No additional P-5'-P [Catalytic activity/Vol] 18 Int._Unit/L Normal 6-46 [facility] Comment on above: Performed By: #### 2 [id number] #### [facility] [address] [place] [address] Anion gap [Moles/Vol] 10 mmol/L Normal 6-16 [facility] Comment on above: Performed By: #### 2 [id number] #### [facility] [address] [place] [address] AST [Catalytic activity/Vol] 14 Int._Unit/L Normal 5-43 [facility] Comment on above: Performed By: #### 2 [id number] #### [facility] [address] [place] [address] Bilirubin [Mass/Vol] 0.7 mg/dL Normal 0.0-1.1 [facility] Comment on above: Performed By: #### 2 [id number] #### [facility] [address] [place] [address] Calcium [Mass/Vol] 8.4 mg/dL Low 8.9-11.1 [facility] Comment on above: Performed By: #### 2 [id number] #### [facility] [address] [place] [address] Chloride [Moles/Vol] 107 mmol/L Normal 101-111 [facility] Comment on above: Performed By: #### 2 [id number] #### [facility] [address] [place] [address] CO2 [Moles/Vol] 24 mmol/L Normal 21-31 [facility] Comment on above: Performed By: #### 2 [id number] #### [facility] [address] [place] [address] Creatinine [Mass/Vol] 1.1 mg/dL Normal 0.5-1.3 [facility] Comment on above: Performed By: #### 2 [id number] #### [facility] [address] [place] [address] Globulin (S) [Mass/Vol] 2.3 g/dL Normal 1.4-4.0 [facility] Comment on above: Performed By: #### 2 [id number] #### [facility] [address] [place] [address] Glucose [Mass/Vol] 102 mg/dL Normal 55-199 [facility] Comment on above: Performed By: #### 2 [id number] #### [facility] [address] [place] [address] Potassium [Moles/Vol] 4.0 mmol/L Normal 3.5-5.3 [facility] Comment on above: Performed By: #### 2 [id number] #### [facility] [address] [place] [address] Protein [Mass/Vol] 5.7 g/dL Low 6.0-7.8 [facility] Comment on above: Performed By: #### 2 [id number] #### [facility] [address] [place] [address] Sodium [Moles/Vol] 137 mmol/L Normal 135-145 [facility] Comment on above: Performed By: #### 2 601771 #### [facility] [address] [place] [address] Urea nitrogen [Mass/Vol] 16 mg/dL Normal 5-21 [facility] Comment on above: Performed By: #### 2 [id number] #### [facility] [address] [place] [address] Urea nitrogen/Creatinine [Mass ratio] 14 No Units Normal 10-20 [facility] Comment on above: Performed By: #### 2 [id number] #### [facility] [address] [place] [address] HEMATOLOGYOrdered By: SYSTEM SYSTEM on 04-29-2024 Basophils/100 WBC (Bld) 1.0 % Normal 0.0 - 2.0 % Remisol Heme Basophils/Leukocyte s Auto (Bld) [Pure # fraction] 0.0 E9/L Normal 0.0 - 0.2 E9/L Remisol Heme Eosinophils (Bld) [#/Vol] 0.0 E9/L Normal 0.0 - 0.5 E9/L Remisol Heme Eosinophils/100 WBC (Bld) 2.3 % Normal 0.0 - 8.0 % Remisol Heme Erythrocyte distribution width (RBC) [Ratio] 14.5 % High 10.9 - 14.2 % Remisol Heme Hematocrit (Bld) [Volume fraction] 32.0 % Low 37.7 - 49.0 % Remisol Heme Hemoglobin (Bld) [Mass/Vol] 11.1 g/dL Low 13.5 - 17.5 gm/dL Remisol Heme Lymphocytes (Bld) [#/Vol] 0.8 E9/L Low 1.0 - 4.0 E9/L Remisol Heme Lymphocytes/100 WBC (Bld) 73.3 % High 14.0 - 50.0 % Remisol Heme MCH (RBC) [Entitic mass] 30.0 pg Normal 27.0 - 34.0 pg Remisol Heme MCHC (RBC) [Mass/Vol] 34.7 g/dL Normal 31.4 - 36.0 gm/dL Remisol Heme MCV (RBC) [Entitic vol] 86.7 fL Normal 80.0 - 100.0 fL Remisol Heme Monocytes (Bld) [#/Vol] 0.2 E9/L Normal 0.2 - 1.0 E9/L Remisol Heme Monocytes/100 WBC (Bld) 17.1 % High 4.0 - 14.0 % Remisol Heme Neutrophils (Bld) [#/Vol] 0.1 E9/L Low 2.0 - 7.5 E9/L Remisol Heme Neutrophils/100 WBC (Bld) 6.3 % Low 36.0 - 75.0 % Remisol Heme Platelet 98.0 E9/L Low 150.0 - 500.0 E9/L Remisol Heme Platelet mean volume (Bld) [Entitic vol] 7.3 fL Normal 6.4 - 10.8 fL Remisol Heme RBC (Bld) [#/Vol] 3.7 E12/L Low 4.3 - 5.9 E12/L Re misol Heme WBC corrected for nucl RBC Auto (Bld) [#/Vol] 1.1 E9/L Invalid Interpretation Code 4.0 - 11.0 E9/L Remisol Heme Comment on above: Result Comment: Crit ical Result Verified by Repeat Analysis Called to Deuce Stoddard 3S. 04-29-2024 @0924 Results are consistent with previous pathologist review Interdisciplinary Note - Reji e Manageron 04-29-2024 Interdisciplinary Note - Community Manager Interdisciplinary Note - Community Manager CRM spoke with patient and in room. Patient is alert and oriented and participates in discharge planning. Patient white board updated, and CRM contact information provided. Discussed [facility] who saw patient earlier today and when ANC greater than 1000 can dc home. states Onc Dr Dickinson told them 5 days. Discussed will need to wait for labs and will dc when labs okay. Discussed PT had recommended H/H. They are not going to be home bound but are agreeable to Outpatient PT when they return from planned trip next week. will transport at dc. . Reviewed Medicare rights, they deny any questions. Normal [facility] Comment on above: Result Comment: Elec tronically Signed By: Uday SPAULDING, Apple\.br\Date and Time Signed: 04/29/24 10:22 EDT Path. Reviewon 04-29-2024 Path Review Leukopenia with thrombocytopenia and relative lymphocytosis. Clinical correlation warranted Invalid Interpretation Code [facility] Comment on above: Performed By: #### 1 [id number] #### [facility] [address] [place] [address] eGFRon 04-29-2024 eGFR 68 mL/min/1.73 m2 Normal >=59 [facility] Comment on above: Order Comment: Order added by Discern Expert. Performed By: #### 1 [id number] #### [facility] [address] [place] [address] BMPon 04-28-2024 Anion gap [Moles/Vol] 10 mmol/L Normal 6-16 [facility] Comment on above: Performed By: #### 2 [id number] #### [facility] [address] [place] [address] Calcium [Mass/Vol] 8.4 mg/dL Low 8.9-11.1 [facility] Comment on above: Performed By: #### 2 [id number] #### [facility] [address] [place] [address] Chloride [Moles/Vol] 107 mmol/L Normal 101-111 [facility] Comment on above: Performed By: #### 2 [id number] #### [facility] [address] [place] [address] CO2 [Moles/Vol] 24 mmol/L Normal 21-31 [facility] Comment on above: Performed By: #### 2 [id number] #### [facility] [address] [place] [address] Creatinine [Mass/Vol] 1.1 mg/dL Normal 0.5-1.3 [facility] Comment on above: Performed By: #### 2 [id number] #### [facility] [address] [place] [address] Glucose [Mass/Vol] 103 mg/dL Normal 55-199 [facility] Comment on above: Performed By: #### 2 200512 #### [facility] [address] [place] [address] Potassium [Moles/Vol] 3.8 mmol/L Normal 3.5-5.3 [facility] Comment on above: Performed By: #### 2 [id number] #### [facility] [address] [place] [address] Sodium [Moles/Vol] 137 mmol/L Normal 135-145 [facility] Comment on above: Performed By: #### 2 [id number] #### [facility] [address] [place] [address] Urea nitrogen [Mass/Vol] 20 mg/dL Normal 5-21 [facility] Comment on above: Performed By: #### 2 [id number] #### [facility] [address] [place] [address] Urea nitrogen/Creatinine [Mass ratio] 18 No Units Normal 10-20 [facility] Comment on above: Performed By: #### 2 [id number] #### [facility] [address] [place] [address] CBC w/ Auto Diffon 4 Basophils/100 WBC (Bld) 0.0 % Normal 0.0-2.0 [facility] Comment on above: Performed By: #### 2 [id number] #### [facility] [address] [place] [address] Basophils/Leukocyte s Auto (Bld) [Pure # fraction] 0.0 E9/L Normal 0.0-0.2 [facility] Comment on above: Performed By: #### 2 [id number] #### [facility] [address] [place] [address] Eosinophils (Bld) [#/Vol] 0.0 E9/L Normal 0.0-0.5 [facility] Comment on above: Performed By: #### 2 365578 #### [facility] [address] [place] [address] Eosinophils/100 WBC (Bld) 1.8 % Normal 0.0-8.0 [facility] Comment on above: Performed By: #### 2 [id number] #### [facility] [address] [place] [address] Erythrocyte distribution width (RBC) [Ratio] 14.9 % High 10.9-14.2 [facility] Comment on above: Performed By: #### 2 [id number] #### [facility] [address] [place] [address] Hematocrit (Bld) [Volume fraction] 40.7 % Normal 37.7-49.0 [facility] Comment on above: Performed By: #### 2 [id number] #### [facility] [address] [place] [address] Hemoglobin (Bld) [Mass/Vol] 13.6 g/dL Normal 13.5-17.5 [facility] Comment on above: Performed By: #### 2 524676 #### [facility] [address] [place] [address] Lymphocytes (Bld) [#/Vol] 0.5 E9/L Low 1.0-4.0 [facility] Comment on above: Performed By: #### 2 [id number] #### [facility] [address] [place] [address] Lymphocytes/100 WBC (Bld) 83.6 % High 14.0-50.0 [facility] Comment on above: Performed By: #### 2 521581 #### [facility] [address] [place] [address] MCH (RBC) [Entitic mass] 29.4 pg Normal 27.0-34.0 [facility] Comment on above: Performed By: #### 2 [id number] #### [facility] [address] [place] [address] MCHC (RBC) [Mass/Vol] 33.5 g/dL Normal 31.4-36.0 [facility] Comment on above: Performed By: #### 2 352207 #### [facility] [address] [place] [address] MCV (RBC) [Entitic vol] 87.7 fL Normal 80.0-100.0 [facility] Comment on above: Performed By: #### 2 [id number] #### [facility] [address] [place] [address] Monocytes (Bld) [#/Vol] 0.1 E9/L Low 0.2-1.0 [facility] Comment on above: Performed By: #### 2 [id number] #### [facility] [address] [place] [address] Neutrophils (Bld) [#/Vol] 0.0 E9/L Low 2.0-7.5 [facility] Comment on above: Performed By: #### 2 084682 #### [facility] [address] [place] [address] Neutrophils/100 WBC (Bld) 4.2 % Low 36.0-75.0 [facility] Comment on above: Performed By: #### 2 [id number] #### [facility] [address] [place] [address] Platelet mean volume (Bld) [Entitic vol] 7.6 fL Normal 6.4-10.8 [facility] Comment on above: Performed By: #### 2 [id number] #### [facility] [address] [place] [address] Platelets (Bld) [#/Vol] 60.0 E9/L Low 150.0-500.0 [facility] Comment on above: Performed By: #### 2 585293 #### [facility] [address] [place] [address] RBC (Bld) [#/Vol] 4.7 E12/L Normal 4.3-5.9 [facility] Comment on above: Performed By: #### 2 [id number] #### [facility] [address] [place] [address] WBC corrected for nucl RBC Auto (Bld) [#/Vol] 0.6 E9/L Abnormal 4.0-11.0 [facility] Comment on above: Result Comment: Crit ical Result Verified by Previous Result Results called to RORY ALCANTAR by KD and read back on 04/28/2024 07:49:58. Performed By: #### 2 [id number] #### [facility] [address] [place] [address] ED Clinical Summaryon 2023 ED Clinical Summary ED Clinical Summary [address] [address] ED Clinical Summary Person Information Name: [place] CORRIGAN [place] Age: 78 Years : 1945 Sex: Male Language: Japanese PCP: Betina Sampson MD Marital Status: Visit Id: Visit Reason: Dizziness; Syncope/Near syncope; Fever - Immunocompromised > 75 years; SENT BY DR.AL FEVER Speciality: Acuity: 2 Enc Type: Inpatient Med Service: Medical Arrival: 04/27/2024 19:34:24 Discharge: LOS: 000 05:17 Checkin: 04/27/2024 19:34:24 Checkout: 04/28/2024 00:51:16 Dispo Type: Admitted as IP to this [facility] EVENTS: Event Name Event Status Request Date/Time Start Date/Time Complete Date/Time Arrive Complete 04/27/2024 19:34:24 04/27/2024 19:34:24 04/27/2024 19:34:24 Document Home Meds Request 04/27/2024 19:34:24 Triage Complete 04/27/2024 19:34:24 04/27/2024 20:11:30 04/27/2024 20:11:30 Registration Complete 04/27/2024 19:40:26 04/27/2024 19:40:26 04/27/2024 19:40:26 Reg Complete Request 04/27/2024 19:40:26 Reg Bed Request Complete 04/27/2024 19:40:26 04/27/2024 19:40:26 04/27/2024 19:40:26 EKG Complete 04/27/2024 20:09:20 04/27/2024 21:41:40 Bed Assign Complete 04/27/2024 20:12:09 04/27/2024 20:12:09 04/27/2024 20:12:09 Dr Exam Complete 04/27/2024 20:12:09 04/27/2024 20:15:21 04/27/2024 20:15:21 RN Exam Complete 04/27/2024 20:12:09 04/28/2024 00:14:50 04/28/2024 00:14:50 Registration Complete 04/27/2024 20:15:21 04/27/2024 23:31:52 04/27/2024 23:31:52 Dr Exam Complete 04/27/2024 20:15:33 04/27/2024 20:15:33 04/27/2024 20:15:33 Meds Admin Complete 04/27/2024 20:15:41 04/27/2024 21:08:08 Pending Labs Inlab 04/27/2024 20:15:41 Lab Inlab 04/27/2024 20:15:41 X-Ray Complete 04/27/2024 20:15:41 04/27/2024 20:38:15 04/27/2024 20:56:41 RT Request 04/27/2024 20:15:41 Dr Exam Complete 04/27/2024 20:16:33 04/27/2024 20:16:33 04/27/2024 20:16:33 Meds Admin Complete 04/27/2024 20:18:33 04/27/2024 21:08:08 Meds Admin Cancel 04/27/2024 20:30:29 04/27/2024 20:33:08 Meds Admin Request 04/27/2024 20:34:26 Pending Labs Complete 04/27/2024 20:54:59 04/27/2024 20:54:59 04/27/2024 21:18:45 Lab Complete 04/27/2024 20:54:59 04/27/2024 20:54:59 04/27/2024 21:18:45 Wet Read Request 04/27/2024 20:56:41 Meds Admin Cancel 04/27/2024 21:05:37 04/27/2024 21:06:32 Meds Admin Complete 04/27/2024 21:06:32 04/27/2024 21:43:56 Meds Admin Cancel 04/27/2024 21:33:13 04/27/2024 21:37:43 Meds Admin Complete 04/27/2024 21:37:43 04/27/2024 22:42:43 Bed Request Request 04/27/2024 23:28:05 Reg Bed Request Complete 04/27/2024 23:28:05 04/27/2024 23:31:52 04/27/2024 23:31:52 Admit Request 04/27/2024 23:28:05 Patient Care Request 04/27/2024 23:31:52 Patient Care Request 04/27/2024 23:31:52 Patient Care Request 04/27/2024 23:31:53 Patient Care Request 04/27/2024 23:31:53 Medicare Form Complete 04/27/2024 23:31:54 04/27/2024 23:46:06 Patient Care Request 04/27/2024 23:31:54 Patient Care Request 04/27/2024 23:31:54 ADDRESS: [address] [place] [address] [id number] PHYS DOC NOTES: MEDICAL INFORMATION: Prescriptions Given: Medications to Continue with No Changes Other Medications cholecalciferol (D3) 125 Microgram By Mouth every day. isosorbide mononitrate (isosorbide mononitrate 30 mg ER Tab) 1 Tablets By Mouth once a day (in the morning). Refills: 0. magnesium oxide 420 Milligram By Mouth once a day (at bedtime). metoprolol (Lopressor) 50 mg (take one- half tablet) By Mouth 2 times a day. ondansetron (ondansetron 8 mg Tab) 8 Milligram By Mouth every 8 hours as needed Nausea. Refills: 3. ondansetron (ondansetron 8 mg Tab) 1 Tablets By Mouth every 8 hours as needed Nausea/Vomiting. Refills: 1. pantoprazole (Pantoprazole [address] Tab) 1 Tablets By Mouth 2 times a day. Refills: 0. pantoprazole (Pantoprazole [address] Tab) 1 Tablets By Mouth every day. Refills: 11. prochlorperazine (prochlorperazine 10 mg Tab) 1 Tablets By Mouth every 6 hours as needed Nausea/Vomiting. Refills: 1. prochlorperazine (prochlorperazine 10 mg Tab) 10 Milligram By Mouth every 6 hours as needed Nausea. Refills: 3. simvastatin 10 Milligram By Mouth every day. sucralfate (Carafate 1 gram Tab) 1 Tablets By Mouth 4 times a day. May dissolve in 10 mls of fluid. Refills: 0. PATIENT EDUCATION INFORMATION: Instructions: Follow up: DIAGNOSIS: 1:Neutropenic sepsis; 2:Primary neuroendocrine carcinoma of esophagus; Neutropenia, unspecified Normal [facility] ED Note-Physicianon 04-28-20 ED Note-Physician ED Note-Physician Basic Information Time Seen: Brittanie Barajas PA-C 04/27/2024 20:15 Chief Complaint Chemo a week ago. Dizzy, unable to ambulate for 15 minutes around noon today. Spouse states pt lowered self to ground and unable to get self back up for 15 minutes. States fever this afternoon. Dr Copeland notified. Esophageal CA with mets. Pt has History of Present Illness Patient presents to the emergency department with a chief complaint of fever, dizziness. The patient just had his first round of chemotherapy on April 16. 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 The patient denies chills or sweats. He denies any nausea vomiting or diarrhea. He denies any chest pain or shortness of breath. Review of Systems Constitutional: Denies weight loss, chills, sweats, malaise. + fever Eyes: Denies visual changes, eye pain, double vision, scotomas, floaters ENT: Denies runny nose, epistaxis, sinus pain, ear pain, ringing in ears, tooth ache, sore throat, pain with swallowing Cardiovascular: Denies chest pain, shortness of breath, orthopnea, edema, palpitations, loss of consciousness, claudication Respiratory: Denies cough, sputum production, wheezing, hemoptysis, shortness of breath, dyspnea on exertion Gastrointestinal: Denies abdominal pain, unintentional weight loss, difficulty swallowing, indigestion, bloating, cramping, loss of appetite, nausea, vomiting, diarrhea, constipation, hematochezia, melena Genitourinary: Denies any incontinence of urine, dysuria, hematuria, nocturia, polyuria, hesitancy, frequency, urgency, burning Musculoskeletal: Denies joint pain, morning stiffness, joint swelling, decreased range of motion, crepitus Integumentary: Denies any pruritus, rashes, lesions, wounds, petechiae Neurologic: Denies any changes in sight, smell, hearing, taste, seizures, headache, paresthesia, numbness, weakness, balance disturbance. + dizzy Psychiatric denies any depression, change in sleep patterns, anxiety, difficulty concentrating, paranoia, anhedonia, lack of energy, sasha Hematologic/lymphatic: Denies any purpura, petechiae, excessive bleeding, bruising Physical Exam Vitals & Measurements T: 38.5 ?C(Oral) HR: 87(Peripheral) RR: 20 BP: 125/77 SpO2: 96% HT: 167.6 cm WT: 90.8 kg BMI: 32.32 Vital signs and nursing notes reviewed. General: Awake, alert, NAD. HEENT: Head is normocephalic, atraumatic. PERRL. EOMI. Sclerae are anicteric. External ears are normal. TMs are intact bilaterally. Canals are clear bilaterally. Nares are patent bilaterally. Oral mucosa is pink and moist. No lesions noted. Tongue protrudes in midline. Uvula rises with phonation. Neck is supple, no no palpable adenopathy. No JVD. Trachea is midline. Thorax: Symmetrical rise and fall. Mediport left anterior chest wall, no erythema or tenderness Lungs: Clear to auscultation throughout all neumann, no wheezes, no crackles Heart: Regular rate and rhythm. No murmur, gallop, or rub Abdomen: No tenderness on palpation. Bowel sounds are present active and normal. No organomegaly. No palpable masses. No CVA tenderness. Extremities: Motor sensory pulses intact x4 extremities. No lower extremity edema. Skin: No lesions, rashes, ulcerations. No bruising or petechiae. Color appropriate, warm and dry Neuro: No oriented x3, no focal neuro deficits Psych: Mood and affect are normal Medical Decision Making MEDICAL DECISION MAKING Number and Complexity of Problems Differential Diagnosis: Neutropenic sepsis, anemia, pancytopenia, thrombocytopenia, electrolyte imbalance, dehydration, pneumonia, acute lower urinary tract infection MDM Data External documents reviewed: Reviewed note from Dr Fabrice Membreno My EKG interpretation: Noted in chart if applicable My CT interpretation: Noted in chart if applicable My X-ray interpretation: Noted in chart if applicable My Ultrasound interpretation: Not applicable Decision rules/scores evaluated: Noted in chart if applicable Discussed with: Dr Ybarra, hospitalist Treatment and Disposition ED Course: Patient was interviewed and examined. His also provides a lot of the information. The appropriate ER workup was initiated as per sepsis protocol. Patient is given acetaminophen for fever 38.5. Patient is given IV fluid hydration as per sepsis protocol. WBC 1.3, hemoglobin 11.4, hematocrit 34.2, platelet 95. ANC is 0.1. Patient was initiated on Zosyn and vancomycin empiric antibiotic therapy for neutropenic sepsis. Pro time 13.3, INR 1.19, PTT 33.0. Sodium 134, potassium 4.1, chloride 101, CO2 26, BUN of 22, creatinine 1.3, glucose of 102, calcium of 9.0. Remainder of CMP unremarkable. Lactic normal at 1.2. Initial troponin 7.50. Repeat 6.60. UA is unremarkable. Chest x-ray with no new findings when compared with chest x-ray of March 08, 2024. There is still chronically displaced right clavicular fracture. I discussed the case in its entirety with the admitting hospital (more content not included)... Normal [facility] Comment on above: Result Comment: Elec tronically Signed By: Brittanie Barajas PA-C\.br\Date and Time Signed: 04/27/24 23:31 EDT\.br\Electronically Co-Signed By: Angel Carter DO\.br\Date and Time Co-Signed: 04/28/24 03:54 EDT ED Patient Education Noteon 04-28-2024 ED Patient Education Note ED Patient Education Note Normal [facility] ED Patient Summaryon 024 ED Patient Summary ED Patient Summary [address] [address] Patient Discharge Instructions Person Information Name: JAMAICA CORRIGAN Age: 78 Years Arrival Date: 04/27/2024 19:34:24 Discharge Diagnosis: 1:Neutropenic sepsis; 2:Primary neuroendocrine carcinoma of esophagus; Neutropenia, unspecified Primary Care Physician: Betina Sampson MD Provider Information Primary Provider: Angel Carter DO Advanced Health Care Technician:None The exam and treatment you received in the Emergency Department were for an urgent problem and are not intended as complete care. It is important that you follow up with a doctor, nurse practitioner, or physician?s patient clerical assistant for ongoing care. If your symptoms become worse or you do not improve as expected and you are unable to reach your usual health care provider, you should return to the Emergency Department. We are available 24 hours a day. JAMAICA CORRIGAN has been given the following list of patient education materials, prescriptions and follow-up instructions: Follow-up Instructions: In the event that this physician does not participate in your insurance network, please consult with your insurance company to find a nearby participating provider. Patient Education Materials: A MESSAGE TO ALL PATIENTS REGARDING OPIOIDS PRESCRIPTION OPIOIDS: WHAT YOU NEED TO KNOW Prescription opioids can be used to help relieve hqwfdmky-fe-jjsfxh pain and are often prescribed following a surgery or injury, or for certain health conditions. These medications can be an important part of the treatment but also come with serious risks. It is important to work with your healthcare provider to make sure you are getting the safest, most effective care. WHAT ARE THE RISKS AND SIDE EFFECTS OF OPIOID USE? Prescription opioids carry serious risks of addiction and overdose, especially with prolonged use. An opioid overdose, often marked by slowed breathing, can cause sudden . The use of prescription opioids can have a number of side effects as well, even when taken as directed: ? Tolerance?meaning you might need to take more of the medication for the same pain relief ? Physical dependence?meaning you have symptoms of withdrawal when a medication is stopped ? Increased sensitivity to pain ? Constipation ? Nausea, vomiting, and dry mouth ? Sleepiness and dizziness ? Confusion ? Depression ? Low levels of testosterone that can result in lower sex drive, energy, and strength ? Itching and sweating RISKS ARE GREATER WITH: ? History of drug misuse, substance use disorder, or overdose ? Mental health conditions (such as depression or anxiety) ? Sleep apnea ? Older age (65 years and older) ? Avoid alcohol while taking prescription opioids. Also, unless specifically advised by your health care provider, medications to avoid include: ? Benzodiazepines (such as Xanax or Valium) ? Muscle relaxants (such as Soma or Flexeril) ? Hypnotics (such as Ambien or Lunesta) ? Other prescription opioids KNOW YOUR OPTIONS Talk to your health care provider about ways to manage your pain that don?t involve prescription opioids. Some of these options may actually work better and have fewer risks and side effects. Options may include: ? Pain relievers such as acetaminophen, ibuprofen, and naproxen ? Some medication that are also used for depression or seizures ? Physical therapy and exercise ? Cognitive behavioral therapy, a psychological, goal-directed approach, in which patients learn how to modify physical, behavioral, and emotional triggers of pain and stress. IF YOU ARE PRESCRIBED OPIOIDS FOR PAIN: ? Never take opioids in greater amounts or more often than prescribed. ? Follow up with your primary health care provider. o Work together to create a plan on how to manage your pain. o Talk about ways to help manage your pain that don?t involve prescription opioids. o Talk about any and all concerns and side effects. ? Help prevent misuse and abuse o Never sell or share prescription opioids. o Never use another person?s prescription opioids. ? Store prescription opioids in a secure place and out of reach of others (this may include visitors, children, friends, and family). ? Safely dispose of unused prescription opioids: Find your community drug take-back program or your pharmacy mail-back program, or flush them down the toilet, following guidance from the Food and Drug Administration (www.fda.gov/Drugs/Resour cesForYou). ? Visit www.cdc.gov/drugoverdose to learn about the risks of opioids abuse and overdose. ? If you believe you may be struggling with addiction, tell your health md do resident urgent care and ask for guidance or call [facility] National Helpline at 3-008-421-FCLB. r Source: US Department of Health and Human Services/Center for Disease Control & Preventio (more content not included)... Normal [facility] HEMATOLOGYOrdered By: SYSTEM SYSTEM on 04-28-2024 Basophils/100 WBC (Bld) 0.0 % Normal 0.0 - 2.0 % Remisol Heme Basophils/Leukocyte s Auto (Bld) [Pure # fraction] 0.0 E9/L Normal 0.0 - 0.2 E9/L Remisol Heme Eosinophils (Bld) [#/Vol] 0.0 E9/L Normal 0.0 - 0.5 E9/L Remisol Heme Eosinophils/100 WBC (Bld) 1.8 % Normal 0.0 - 8.0 % Remisol Heme Lymphocytes (Bld) [#/Vol] 0.5 E9/L Low 1.0 - 4.0 E9/L Remisol Heme Lymphocytes/100 WBC (Bld) 83.6 % High 14.0 - 50.0 % Remisol Heme Monocytes (Bld) [#/Vol] 0.1 E9/L Low 0.2 - 1.0 E9/L Remisol Heme Monocytes/100 WBC (Bld) 10.4 % Normal 4.0 - 14.0 % Remisol Heme Neutrophils (Bld) [#/Vol] 0.0 E9/L Low 2.0 - 7.5 E9/L Remisol Heme Neutrophils/100 WBC (Bld) 4.2 % Low 36.0 - 75.0 % Remisol Heme HEMATOLOGYOrdered By: Charles eClis on 04-28-2024 Path Review Leukopenia with thrombocytopenia and relative lymphocytosis. Clinical correlation warrantedBy Dr. Charles [id number] Invalid Interpretation Code [facility] HemeManSS Interdisciplinary Note - Reji e Manageron 04-28-2024 Interdisciplinary Note - Community Manager Interdisciplinary Note - Community Manager CRM spoke with patient in room. Patient is alert and oriented and participates in discharge planning. No family in room. Patient white board updated, and CRM contact information provided. Discussed CRM spoke with Dr Brittani GARZA who saw patient earlier today and will be here for a couple days. Patient had a fever at home and fell. Waiting PT eval. Patient verified PCP, insurance and DME. Patient is form home with his and she will transport at [place]. He denies any H/h services or needs for at discharge. Reviewed Medicare rights, he denies any questions and signs form. gave him a copy of signed form. Normal [facility] Comment on above: Result Comment: Elec tronically Signed By: Uday SPAULDING, [employer]\.br\Date and Time Signed: 04/28/24 13:35 EDT Interdisciplinary Note - Soc ial Workeron 04-28-2024 Interdisciplinary Note - Unit Assembler Interdisciplinary Note - Unit Assembler There was a positive SDOH screen for transportation needs. SW met with the patient and he reported that he does not have any limitations with transportation at this time. He shared that he has family and friends that will assist as needed. Normal [facility] XR Chest Single Viewon 04-28 XR Chest Single View Exam Date/Time: 04/27/2024 20:56 EDT Reason for Exam: Shortness of breath (SOB) Report IMPRESSION: No significant interval change from prior. EXAMINATION: XR Chest Single View Clinical History: Shortness of breath (SOB) Comparison: 04/16/2024. RESULT: Left-sided port catheter, grossly unchanged. Opacity/atelectasis the lung bases, unchanged. No large pleural effusion. No pneumothorax. Grossly stable cardiomediastinal silhouette. Granulomatous calcifications, similar to prior. Chronic displaced fracture right clavicle, unchanged. Degenerative changes. Ordering Provider: Angel Cartre FINAL REPORT Dictated: 04/28/2024 12:12 pm Abraham Carson MD Signed (Electronic Signature): 04/28/2024 12:12 pm Signed by: Abraham Carson MD Transcribed by: DP Technologist: DOLORESR Technical Comments Radiation Dose: Ka,r in mGy = . DAP = . Normal [facility] eGFRon 04-28-2024 eGFR 68 mL/min/1.73 m2 Normal >=59 [facility] Comment on above: Order Comment: Order added by Discern Expert. Performed By: #### 1 [id number] #### [facility] [address] [place] [address] CBC w/ Auto Diffon 4 Basophils/100 WBC (Bld) 0.9 % Normal 0.0-2.0 [facility] Comment on above: Performed By: #### 2 [id number] #### [facility] [address] [place] [address] Basophils/Leukocyte s Auto (Bld) [Pure # fraction] 0.0 E9/L Normal 0.0-0.2 [facility] Comment on above: Performed By: #### 2 [id number] #### [facility] [address] [place] [address] Eosinophils (Bld) [#/Vol] 0.0 E9/L Normal 0.0-0.5 [facility] Comment on above: Performed By: #### 2 [id number] #### [facility] [address] [place] [address] Eosinophils/100 WBC (Bld) 0.8 % Normal 0.0-8.0 [facility] Comment on above: Performed By: #### 2 [id number] #### [facility] [address] [place] [address] Erythrocyte distribution width (RBC) [Ratio] 14.7 % High 10.9-14.2 [facility] Comment on above: Performed By: #### 2 [id number] #### [facility] [address] [place] [address] Hematocrit (Bld) [Volume fraction] 34.2 % Low 37.7-49.0 [facility] Comment on above: Performed By: #### 2 [id number] #### [facility] [address] [place] [address] Hemoglobin (Bld) [Mass/Vol] 11.4 g/dL Low 13.5-17.5 [facility] Comment on above: Performed By: #### 2 [id number] #### [facility] [address] [place] [address] Lymphocytes (Bld) [#/Vol] 1.2 E9/L Normal 1.0-4.0 [facility] Comment on above: Performed By: #### 2 [id number] #### [facility] [address] [place] [address] Lymphocytes/100 WBC (Bld) 86.5 % High 14.0-50.0 [facility] Comment on above: Performed By: #### 2 [id number] #### [facility] [address] [place] [address] MCH (RBC) [Entitic mass] 29.3 pg Normal 27.0-34.0 [facility] Comment on above: Performed By: #### 2 [id number] #### [facility] [address] [place] [address] MCHC (RBC) [Mass/Vol] 33.4 g/dL Normal 31.4-36.0 [facility] Comment on above: Performed By: #### 2 [id number] #### [facility] [address] [place] [address] MCV (RBC) [Entitic vol] 87.6 fL Normal 80.0-100.0 [facility] Comment on above: Performed By: #### 2 [id number] #### [facility] [address] [place] [address] Monocytes (Bld) [#/Vol] 0.1 E9/L Low 0.2-1.0 [facility] Comment on above: Performed By: #### 2 [id number] #### [facility] [address] [place] [address] Neutrophils (Bld) [#/Vol] 0.1 E9/L Low 2.0-7.5 [facility] Comment on above: Performed By: #### 2 [id number] #### [facility] [address] [place] [address] Neutrophils/100 WBC (Bld) 4.3 % Low 36.0-75.0 [facility] Comment on above: Performed By: #### 2 [id number] #### [facility] [address] [place] [address] Platelet mean volume (Bld) [Entitic vol] 7.7 fL Normal 6.4-10.8 [facility] Comment on above: Performed By: #### 2 [id number] #### [facility] [address] [place] [address] Platelets (Bld) [#/Vol] 95.0 E9/L Low 150.0-500.0 [facility] Comment on above: Performed By: #### 2 [id number] #### [facility] [address] [place] [address] RBC (Bld) [#/Vol] 3.9 E12/L Low 4.3-5.9 [facility] Comment on above: Performed By: #### 2 [id number] #### [facility] [address] [place] [address] WBC corrected for nucl RBC Auto (Bld) [#/Vol] 1.3 E9/L Abnormal 4.0-11.0 [facility] Comment on above: Result Comment: Crit ical Result Verified by Repeat Analysis Results called to DR CARTER by JONAS and read back on 04/27/2024 21:30:43. Performed By: #### 2 [id number] #### [facility] [address] [place] [address] CHEMISTRYOrdered By: SYSTEM SYSTEM on 04-27-2024 Troponin HS 6.60 pg/mL Low 15.90 - 38.40 pg/mL Remisol Chem Comment on above: Interpretive Data: T he 95% CI (Confidence Interval) PPV (Positive Predictive Value) for myocardial infarction in females is 38 pg/mL, in males 51 pg/mL. The results should be used in conjunction with clinical conditions of myocardial infarction. (Access High Sensitivity Troponin I Instructions For Use, [employer], April 2018) Albumin [Mass/Vol] 4.0 g/dL Normal 3.3 - 5.0 gm/dL R emisol Chem Albumin/Globulin [Mass ratio] 1.4 {ratio} Normal 1.1 - 2.2 Remisol Chem ALP [Catalytic activity/Vol] 63 [iU]/d Normal 21 - 98 Int._Unit/L Remisol Chem ALT No additional P-5'-P [Catalytic activity/Vol] 20 [iU]/d Normal 6 - 46 Int._Unit/L Remisol Chem AST [Catalytic activity/Vol] 15 [iU]/d Normal 5 - 43 Int._Unit/L Remisol Chem Bilirubin [Mass/Vol] 0.8 mg/dL Normal 0.0 - 1.1 mg/dL Remisol Chem Globulin (S) [Mass/Vol] 2.8 g/dL Normal 1.4 - 4.0 gm/dL Remisol Chem Lactic Acid Lvl 1.2 mmol/L Normal 0.5 - 2.2 mmol/L Remisol Chem Protein [Mass/Vol] 6.8 g/dL Normal 6.0 - 7.8 gm/dL R emisol Chem Troponin HS 7.50 pg/mL Low 15.90 - 38.40 pg/mL Remisol Chem Comment on above: Interpretive Data: T he 95% CI (Confidence Interval) PPV (Positive Predictive Value) for myocardial infarction in females is 38 pg/mL, in males 51 pg/mL. The results should be used in conjunction with clinical conditions of myocardial infarction. (Access High Sensitivity Troponin I Instructions For Use, [employer], April 2018) [facility] Albumin [Mass/Vol] 4.0 g/dL Normal 3.3-5.0 [facility] Comment on above: Performed By: #### 2 [id number] #### [facility] [address] [place] [address] Albumin/Globulin (S) [Mass conc ratio] 1.4 Normal 1.1-2.2 [facility] Comment on above: Performed By: #### 2 [id number] #### [facility] [address] [place] [address] ALP [Catalytic activity/Vol] 63 Int._Unit/L Normal 21-98 [facility] Comment on above: Performed By: #### 2 [id number] #### [facility] [address] [place] [address] ALT No additional P-5'-P [Catalytic activity/Vol] 20 Int._Unit/L Normal 6-46 [facility] Comment on above: Performed By: #### 2 [id number] #### [facility] [address] [place] [address] Anion gap [Moles/Vol] 11 mmol/L Normal 6-16 [facility] Comment on above: Performed By: #### 2 [id number] #### [facility] [address] [place] [address] AST [Catalytic activity/Vol] 15 Int._Unit/L Normal 5-43 [facility] Comment on above: Performed By: #### 2 [id number] #### [facility] [address] [place] [address] Bilirubin [Mass/Vol] 0.8 mg/dL Normal 0.0-1.1 [facility] Comment on above: Performed By: #### 2 [id number] #### [facility] [address] [place] [address] Calcium [Mass/Vol] 9.0 mg/dL Normal 8.9-11.1 [facility] Comment on above: Performed By: #### 2 [id number] #### [facility] [address] [place] [address] Chloride [Moles/Vol] 101 mmol/L Normal 101-111 [facility] Comment on above: Performed By: #### 2 [id number] #### [facility] [address] [place] [address] CO2 [Moles/Vol] 26 mmol/L Normal 21-31 [facility] Comment on above: Performed By: #### 2 [id number] #### [facility] [address] [place] [address] Creatinine [Mass/Vol] 1.3 mg/dL Normal 0.5-1.3 [facility] Comment on above: Performed By: #### 2 [id number] #### [facility] [address] [place] [address] Globulin (S) [Mass/Vol] 2.8 g/dL Normal 1.4-4.0 [facility] Comment on above: Performed By: #### 2 [id number] #### [facility] [address] [place] [address] Glucose [Mass/Vol] 102 mg/dL Normal 55-199 [facility] Comment on above: Performed By: #### 2 [id number] #### [facility] [address] [place] [address] Potassium [Moles/Vol] 4.1 mmol/L Normal 3.5-5.3 [facility] Comment on above: Performed By: #### 2 [id number] #### [facility] [address] [place] [address] Protein [Mass/Vol] 6.8 g/dL Normal 6.0-7.8 [facility] Comment on above: Performed By: #### 2 [id number] #### [facility] [address] [place] [address] Sodium [Moles/Vol] 134 mmol/L Low 135-145 [facility] Comment on above: Performed By: #### 2 [id number] #### [facility] [address] [place] [address] Urea nitrogen [Mass/Vol] 22 mg/dL High 5-21 [facility] Comment on above: Performed By: #### 2 [id number] #### [facility] [address] [place] [address] Urea nitrogen/Creatinine [Mass ratio] 17 No Units Normal 10-20 [facility] Comment on above: Performed By: #### 2 [id number] #### [facility] [address] [place] [address] COAGULATIONOrdered By: Reji Jerome on 04-27-2024 aPTT Coag (PPP) [Time] 33.0 s Normal 25.1 - 36.5 second(s) [facility] Comment on above: Interpretive Data: P jadyn 15 days - 4 weeks 1 - 5 months 6 - 11 months 1 - 5 years 6 - 10 years 11 - 17 years PTT Mean: 35.4 (27.6-45.6) Mean: 33.5 (24.8-40.7) Mean: 32.4 (25.1-40.7) Mean: 31.6 (24.0-39.2) Mean: 31.6 (26.9-38.7) Mean: 31.0 (24.6-38.4) Pediatric Reference ranges were obtained from a study by Zach Thomason et al. prepared from 1437 samples obtained at 7 different centers using the same coagulation reagent and instrumentation as [facility]. Currently there are no coagulation studies available worldwide for children to 14 days, and no normal ranges. Heparin therapeutic range (represented by Anti-Factor Xa activity of 0.2 - 0.4 U/mL) corresponds to PTT of 56.6 - 109.0 sec. INR Coag (PPP) [Relative time] 1.19 {INR} Invalid Interpretation Code [facility]ag Comment on above: Interpretive Data: I NR results are specifically intended to assess patients stabilized on long-term Anticoagulation therapy suggested INR s Less Intensive Anticoagulation 2.0 3.0 Conventional Range 3.0 4.5 PT Coag (PPP) [Time] 13.3 s High 9.4 - 12.5 second(s) [facility] Comment on above: Interpretive Data: 1 5 days - 4 weeks 1 - 5 months 6 -11 months 1 5 years 6 10 years 11 -17 years Mean: 11.2 (9.5 12.6) Mean: 11.0 (9.7 12.8) Mean: 11.0 (9.8 13.0) Mean: 11.3 (9.9 13.4) Mean: 11.7 (10.0 14.6) Mean: 11.8 (10.0 - 14.1) Pediatric Reference ranges were obtained from a study by Zach Thomason et al. prepared from 1437 samples obtained at 7 different centers using the same coagulation reagent and instrumentation as [facility]. Currently there are no coagulation studies available worldwide for children to 14 days, and no normal ranges. HEMATOLOGYOrdered By: SYSTEM SYSTEM on 04-27-2024 Basophils/100 WBC (Bld) 0.9 % Normal 0.0 - 2.0 % Remisol Heme Basophils/Leukocyte s Auto (Bld) [Pure # fraction] 0.0 E9/L Normal 0.0 - 0.2 E9/L Remisol Heme Eosinophils (Bld) [#/Vol] 0.0 E9/L Normal 0.0 - 0.5 E9/L Remisol Heme Eosinophils/100 WBC (Bld) 0.8 % Normal 0.0 - 8.0 % Remisol Heme Lymphocytes (Bld) [#/Vol] 1.2 E9/L Normal 1.0 - 4.0 E9/L Remisol Heme Lymphocytes/100 WBC (Bld) 86.5 % High 14.0 - 50.0 % Remisol Heme Monocytes (Bld) [#/Vol] 0.1 E9/L Low 0.2 - 1.0 E9/L Remisol Heme Monocytes/100 WBC (Bld) 7.5 % Normal 4.0 - 14.0 % Remisol Heme Neutrophils (Bld) [#/Vol] 0.1 E9/L Low 2.0 - 7.5 E9/L Remisol Heme Neutrophils/100 WBC (Bld) 4.3 % Low 36.0 - 75.0 % Remisol Heme Lactic Acidon 04-27-2024 Lactic Acid Lvl 1.2 mmol/L Normal 0.5-2.2 [facility] Comment on above: Performed By: #### 2 [id number] #### [facility] [address] [place] [address] No Panel InformationOrdered By: [facility] MICROBIOLOGY on 04-27-2024 Blood Culture Charcoal No growth at 4 days. Final to follow at 7 days. [facility] Blood Culture Charcoal No growth at 4 days. Final to follow at 7 days. [facility] PT & PTTon 04-27-2024 aPTT Coag (PPP) [Time] 33.0 second(s) Normal 25.1-36.5 [facility] Comment on above: Result Comment: Para meter 15 days - 4 weeks 1 - 5 months 6 - 11 months 1 - 5 years 6 - 10 years 11 - 17 years PTT Mean: 35.4 (27.6-45.6) Mean: 33.5 (24.8-40.7) Mean: 32.4 (25.1-40.7) Mean: 31.6 (24.0-39.2) Mean: 31.6 (26.9-38.7) Mean: 31.0 (24.6-38.4) Pediatric Reference ranges were obtained from a study by Zach Thomason et al. prepared from 1437 samples obtained at 7 different centers using the same coagulation reagent and instrumentation as [facility]. Currently there are no coagulation studies available worldwide for children to 14 days, and no normal ranges. Heparin therapeutic range (represented by Anti-Factor Xa activity of 0.2 - 0.4 U/mL) corresponds to PTT of 56.6 - 109.0 sec. Performed By: #### 1 [id number] #### [facility] [address] [place] [address] INR Coag (PPP) [Relative time] 1.19 {INR} Invalid Interpretation Code [facility] Comment on above: Result Comment: INR results are specifically intended to assess patients stabilized on long-term Anticoagulation therapy suggested INR?s ?Less Intensive Anticoagulation? 2.0 ? 3.0 Conventional Range 3.0 ? 4.5 Performed By: #### 1 [id number] #### [facility] [address] [place] [address] PT Coag (PPP) [Time] 13.3 second(s) High 9.4-12.5 [facility] Comment on above: Result Comment: 15 d ays - 4 weeks 1 - 5 months 6 -11 months 1 ? 5 years 6 ? 10 years 11 -17 years Mean: 11.2 (9.5 ? 12.6) Mean: 11.0 (9.7 ? 12.8) Mean: 11.0 (9.8 ? 13.0) Mean: 11.3 (9.9 ? 13.4) Mean: 11.7 (10.0 ? 14.6) Mean: 11.8 (10.0 - 14.1) Pediatric Reference ranges were obtained from a study by Zach Thomason et al. prepared from 1437 samples obtained at 7 different centers using the same coagulation reagent and instrumentation as [facility]. Currently there are no coagulation studies available worldwide for children to 14 days, and no normal ranges. Performed By: #### 1 [id number] #### [facility] [address] [place] [address] Troponinon 04-27-2024 Troponin HS 7.50 pg/mL Low 15.90-38.40 [facility] Comment on above: Result Comment: The 95% CI (Confidence Interval) PPV (Positive Predictive Value) for myocardial infarction in females is 38 pg/mL, in males 51 pg/mL. The results should be used in conjunction with clinical conditions of myocardial infarction. (Access High Sensitivity Troponin I Instructions For Use, Contracts and Grants, April 2018) Performed By: #### 2 [id number] #### [facility] [address] [place] [address] Troponin 1 Hr.on 04-27-2024 Troponin HS 6.60 pg/mL Low 15.90-38.40 [facility] Comment on above: Result Comment: The 95% CI (Confidence Interval) PPV (Positive Predictive Value) for myocardial infarction in females is 38 pg/mL, in males 51 pg/mL. The results should be used in conjunction with clinical conditions of myocardial infarction. (Access High Sensitivity Troponin I Instructions For Use, Contracts and Grants, April 2018) Performed By: #### 1 [id number] #### [facility] [address] [place] [address] UA with Cult Rflxon 04-27-20 24 Bilirubin Ql (U) Negative Normal Negative [facility] Comment on above: Performed By: #### 4 [id number] #### [facility] [address] [place] [address] Clarity (U) Clear Normal Clear [facility] Comment on above: Performed By: #### 4 [id number] #### [facility] [address] [place] [address] Color (U) Light-Yellow Normal Yellow [facility] Comment on above: Result Comment: Micr oscopic readings are only performed on those samples that meet specific criteria set forth by [facility]. Performed By: #### 4 [id number] #### [facility] [address] [place] [address] Glucose Ql (U) Negative Normal Negative [facility] Comment on above: Performed By: #### 4 [id number] #### [facility] [address] [place] [address] Hemoglobin Auto test strip (U) [Mass/Vol] Negative Normal Negative [facility] Comment on above: Performed By: #### 4 [id number] #### [facility] [address] [place] [address] Ketones Auto test strip Ql (U) Negative Normal Negative [facility] Comment on above: Performed By: #### 4 [id number] #### [facility] [address] [place] [address] Leukocyte esterase Auto test strip Ql (U) Negative Normal Negative [facility] Comment on above: Performed By: #### 4 [id number] #### [facility] [address] [place] [address] Nitrite Auto test strip Ql (U) Negative Normal Negative [facility] Comment on above: Performed By: #### 4 [id number] #### [facility] [address] [place] [address] pH (U) 5.0 [pH] Invalid Interpretation Code 5.0-9.0 [facility] Comment on above: Performed By: #### 4 [id number] #### [facility] [address] [place] [address] Protein Ql (U) Negative Normal Negative [facility] Comment on above: Performed By: #### 4 [id number] #### [facility] [address] [place] [address] Specific gravity (U) [Rel density] 1.012 Invalid Interpretation Code 1.005-1.030 [facility] Comment on above: Performed By: #### 4 [id number] #### [facility] [address] [place] [address] Urobilinogen (U) [Mass/Vol] Negative Normal Negative [facility] Comment on above: Performed By: #### 4 [id number] #### [facility] [address] [place] [address] Type of Urine collection method Clean Catch Normal [facility] Comment on above: Performed By: #### 4 [id number] #### [facility] [address] [place] [address] URINALYSISOrdered By: SYSTEM SYSTEM on 04-27-2024 Bilirubin Ql (U) Negative Normal Negativemg/dL [facility] Auto SS Clarity (U) Clear (04/27/24 10:48 PM) Normal Clear [facility] Auto SS Color (U) Light-Yellow 1 (04/27/24 10:48 PM) Normal Yellow [facility] SS Comment on above: Interpretive Data: M icroscopic readings are only performed on those samples that meet specific criteria set forth by [facility]. Glucose Ql (U) Negative Normal Negativemg/dL [facility] Auto SS Hemoglobin Auto test strip (U) [Mass/Vol] Negative Normal Negativemg/dL [facility] Auto SS Ketones Auto test strip Ql (U) Negative Normal Negativemg/dL [facility] Auto SS Leukocyte esterase Auto test strip Ql (U) Negative Normal NegativeLeu/uL [facility] Auto SS Nitrite Auto test strip Ql (U) Negative Normal Negativemg/dL [facility] Auto SS pH (U) 5.0 *NA* (04/27/24 10:48 PM) Invalid Interpretation Code 5.0 - 9.0 [facility] Auto SS Protein Ql (U) Negative Normal Negativemg/dL [facility] Auto SS Specific gravity (U) [Rel density] 1.012 *NA* (04/27/24 10:48 PM) Invalid Interpretation Code 1.005 - 1.030 [facility] Auto SS Urobilinogen (U) [Mass/Vol] Negative Normal Negativemg/dL [facility] Auto SS URINALYSISOrdered By: Sheela Carter on 04-27-2024 UA Spec Desc Clean Catch (04/27/24 10:48 PM) Normal [facility]A Auto SS Work Phone: eGFRon 04-27-2024 eGFR 56 mL/min/1.73 m2 Low >=59 [facility] Comment on above: Order Comment: Order added by Discern Expert. Performed By: #### 1 [id number] #### [facility] [address] [place] [address] Oncology Supportive Care Not abhi 04-25-2024 Oncology Supportive Care Note Oncology Supportive Care Note History of Present Illness Visit type and participants: [place] Corrigan is here with his Vy for initial supportive oncology visit. PCP: Sherie Meehan DO Summary of oncologic history: 78 year old man with CAD (stent x1 about 2 years ago), stage 3a CKD, mild asthma, hearing loss, BPH, hypertension, recent Covid (~2 months ago), and history of exposure to Agent [place] who presented to the ED on 03/08/24 with 2 episodes of hematemesis for which he underwent EGD showing fungating distal esophageal mass. 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 prostate nodule; PET-CT on 04/21 showed other hepatic lesions and areas of increased uptake in nodes, both adrenal glands, and T2/T3. He commenced carboplatin-etoposide on 04/16/24 (atezolizumab was denied by insurance); consulting radiation oncologist recommended deferring palliative radiation to spine unless he became symptomatic. Chief complaint/reason for referral: symptom management and support He is having some fatigue. His only other concerns were insurance denial of atezolizumab and questions about prognosis and what to expect with treatment. He began noticing the fatigue after he retired last year, and this worsened after his Covid infection a couple of months ago. He tends to fall asleep easily and naps in both morning and afternoon now. Some naps are prolonged, e.g., often sleeps from 9-11 in the morning. He also has to stop and rest if he does more strenuous activities such as home repairs and yard work. He didn't think he was more fatigued after his treatment on 04/16 and denied any other treatment adverse effects both today and at his oncology visit yesterday. He does have some problems with insomnia - falls asleep readily but awakens 2-4 times per night to urinate. He is not currently taking any diuretics or medication for his BPH. Usually he falls back to sleep fairly quickly. No history of sleep disordered breathing though has never been tested. His asked whether they could get his treatment paid through the [facility] so that he could have the atezolizumab. The closest [place] onc[place] clinic [place] in [place]. He is 50% service-connected now. She did speak to his behavioral health case manager who provided her with his medical records but she also needs a letter from his oncologist stating that his cancer is related. His said that oncologist indicated a prognosis of about 2 years with treatment. She wanted to know how his oncologist would know if the treatment was working. Medication trial history: None. Interventional pain management history: None. Functional status: Has to push himself and sometimes stop and rest, but still doing home repairs and yardwork. Advance care planning: He understands that his cancer is treatable but not curable. He likes to keep busy, work outside, and travel, and hopes to continue these activities as long as possible. He does have advance directives but they are not on file. 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 SERVICE-active medications: none, no alcohol Sleep apnea: none known, does have excessive daytime sleepiness PDMP queried today, results: no entries in past 2 years SOAPP 1.0 score and date administered: 04/23/24 = 1 Review of Systems: Supportive Oncology Symptom Questionnaire (Modified Princeton Symptom Assessment Scale): Pain severity over past week: 1 Painful area(s): low back/sciatica, uses B-active brace from [employer] which works very well Current severity of symptoms: Pain: 0 Fatigue: 0 (however it was reported in interview - see HPI) Drowsiness: 0 (however it was reported in interview - see HPI) Nausea: 0 Anorexia: 0 Constipation: 0 Diarrhea: 0 Dyspnea: 3 Depression: 0 Anxiety: 0 Insomnia: 0 (however it was reported in interview - see HPI) Trouble taking medication as prescribed? no Most important to address with the doctor: prognosis, what to expect Additional comments by patient: Social History: He lives in [place] with his of 17 years, yV. Each has 3 children from previous relationships. One of her daughters and one of his daughters live in [place]; one of his sons lives in [place] and the other in [place]. One of her sons is going through a difficult time with substance use. They have led an active lifestyle including owning 9 horses and traveling. They no longer have their own horses but just got back from a horseback riding trip in [facility]. He is hoping to travel to the [facility] and to [place] in the near future. 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 In his spare time he enjoys working in his garden and on home repairs/improvements. He served in the [employer] in 1 (more content not included)... Normal [facility] 04-25-20 24 [facility] Case Information Case Priority: None Programs: -- Referral Source: Community Manager Referral Reason: Disease management Case Type: Chronic Care Management Risk Score: -- Case Status: Active (January 30, 2024) Date Assigned: December 13, 2023 Assigned By: Tha Khalil Date Enrolled: December 25, 2023 Assigned Primary Personnel: Tha Khalil Assigned Secondary Personnel: -- Case Physician: Betina Sampson MD Ongoing Abnormal CT scan, pelvis 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 BPH with urinary obstruction Bradycardia CAD in [place] artery Chronic kidney disease, stage 3a Closed displaced fracture of shaft of right clavicle COVID Dyspnea on exertion Hard of hearing 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 History of kidney stones HLD (hyperlipidemia) Hospital discharge follow-up Hx of cardiac catheterization Malignant neoplasm of lower third of esophagus Mild diastolic dysfunction Mild persistent asthma without complication Primary hypertension Renal stone Small cell carcinoma TIA on medication Ureteral stone with hydronephrosis Vitamin D deficiency Historical No qualifying data Procedure/Surgical History Insertion of peripherally inserted central venous access device, with subcutaneous port; age 5 years or older (04/16/2024), Esophagogastroduodenoscop y (03/09/2024), Cystoscopic laser lithotripsy of ureteric calculus (05/24/2023), ESWL of kidney (05/03/2023), Cystoscopic insertion of ureteric stent (04/07/2023), Placement of stent in cardiac conduit (11/2017), Colonoscopy (2017), Carpal tunnel syndrome of left wrist, Carpal tunnel syndrome of right wrist, Kidney stone, Port. Home Medications Carafate 1 gram Tab, 1 gm= 1 tab(s), Oral, QID D3, 125 mcg, Oral, Daily isosorbide mononitrate 30 mg ER Tab, 30 mg= 1 tab(s), Oral, qAM Lopressor, 50 mg (take one- half tablet), Oral, BID magnesium oxide, 420 mg, Oral, Once a day (at bedtime) ondansetron 8 mg Tab, 8 mg= 1 tab(s), Oral, q8hr, PRN, 1 refills ondansetron 8 mg Tab, 8 mg, Oral, q8hr, PRN, 3 refills Pantoprazole [address] Tab, 40 mg= 1 tab(s), Oral, Daily, 11 refills Pantoprazole [address] Tab, 40 mg= 1 tab(s), Oral, BID prochlorperazine 10 mg Tab, 10 mg= 1 tab(s), Oral, q6hr, PRN, 1 refills prochlorperazine 10 mg Tab, 10 mg, Oral, q6hr, PRN, 3 refills simvastatin, 10 mg, Oral, Daily Allergies No Known Medication Allergies Social History Alcohol - Denies Alcohol Use, 01/17/2022 Substance Abuse - Denies Substance Abuse, 01/17/2022 Tobacco Never (less than 100 in lifetime) Tobacco Use:. Never Smokeless Tobacco Use:. Household tobacco concerns: No., 04/22/2024 Family History Diabetes mellitus type 2: Father. Screenings and Assessments 12/25/23 09:55:00 Result Name Value Comment Phone Call Monitoring Consent Agreed to continue call Phone Verification Patient Information Full name, street address and date of verified Program Enrollment Provides verbal consent for enrollment CCM Program Enrollment Verbally agreed to receive [facility] services CCM Written Consent Written consent in progress CCM Verbal Consent By Self 12/25/23 09:00:00 Result Name Value Comment Rate Your Physical Health Good CM Hearing Evaluation Hearing difficulty at level of conversation CM Vision Evaluation Vision impairment, but managed through assistive devices CM Speech Communication Communicates independently CM Sensory Perception No sensory perception impairment CM Fine, Gross Motor Skills No impairment musculoskeletal, fine, gross motor development General Symptoms None Respiratory Symptoms None Cardiovascular Symptoms None GI Symptoms None Genitourinary Symptoms None Urinary Elimination Voiding, no difficulties Feeding Tube Type None Skin Symptoms None Wound Type None Orientation Assessment Oriented x 4 HIPPA Verified Type of Contact In person at home Information Given by Self CM Preferred Spoken Language Japanese CM Preferred Written Language Japanese Preferred Communication Mode Verbal Ability to Read/Write Able to read, Able to write Preferred Salutation Mr. Telemarketer Supervisor Called No Preferred Method of Contact Cell Cell Best Time to Visit or Contact 7-10 am Appointment Reminders Phone, Other secured messaging Preferred Way to Send PHI Other secured messaging Able to Read Japanese Able to read Japanese Learning Style Pref Patient Demonstration Learning Style Pref Parent/Guardian Demonstration Teaching Method (more content not included)... Normal [facility] Ambulatory Visit Summaryon 0 04-22-2024 Ambulatory Visit Summary Ambulatory Visit Summary JAMA[place] CORRIGAN :1945 Visit Date:04/22/2024 Ambulatory Visit Instructions Your Diagnosis Abnormal CT scan, pelvis History of kidney stones BPH with urinary obstruction These Are Your Goals Complications of Hypertension Avoided - Not met Interventions: Follow low sodium diet - Progressing Keep follow up appointments with provider and complete testing as directed - Progressing Monitor and keep BP log; at least 3 days per week - Not done Review educational material - Done Take Medications as Prescribed - Progressing Complications of Kidney Disease Avoided - Not met Interventions: Avoid high sodium, potassium foods such as; bananas, avacados, canned soups, pickled foods, etc... - Progressing Complete testing/ blood work as directed per provider - Progressing Keep follow up appointments with provider as directed - Progressing Review educational material Complications of Hyperlipidemia avoided - Not met Interventions: Complete bloodwork as directed by provider - Progressing Keep follow up appointments as scheduled - Progressing Maintain active healthy lifestyle and avoid foods high in saturated fats - Progressing Review educational material - Done Take Medications as Prescribed - Progressing CAD complications avoided - Not met Interventions: Keep follow up appointments as scheduled and complete testing, bloodwork as directed by provider - Progressing Maintain an active healthy lifestyle - Progressing Review educational material - Done Take medications as prescribed - Progressing Your Care Team Attending Physician - PAPA DELONG, Zachary Meléndez Primary Care Physician - Adrián DELONG, Betina Anna This Is Your Medications List Contact prescribing physician if questions or concerns cholecalciferol (D3) isosorbide mononitrate (isosorbide mononitrate 30 mg ER Tab) magnesium oxide metoprolol (Lopressor) ondansetron (ondansetron 8 mg Tab) ondansetron (ondansetron 8 mg Tab) pantoprazole (Pantoprazole [address] Tab) pantoprazole (Pantoprazole [address] Tab) prochlorperazine (prochlorperazine 10 mg Tab) prochlorperazine (prochlorperazine 10 mg Tab) simvastatin sucralfate (Carafate 1 gram Tab) Procedures Performed Insertion of peripherally inserted central venous access device, with subcutaneous port; age 5 years or older (04/16/2024), Esophagogastroduodenoscop y (03/09/2024), Cystoscopic laser lithotripsy of ureteric calculus (05/24/2023), ESWL of kidney (05/03/2023), Cystoscopic insertion of ureteric stent (04/07/2023), Placement of stent in cardiac conduit (11/2017), Colonoscopy (2017), Carpal tunnel syndrome of left wrist, Carpal tunnel syndrome of right wrist, Kidney stone, Port. Discharge Vitals Height 170 cm Height 67 in Weight 91 kg Weight 200.2 lb BMI 31.49 What to do next Scheduled Follow-Up Appointments Sunday 1:20 PM EDT With: Where: [facility] Sunday 1:40 PM EDT With: Elaine DELONG, Mallory Michaels Where: [facility] Sunday 1:00 PM EDT With: FABRICE MEMBRENO MD Where: [facility] Sunday 2:30 PM EDT With: Where: [facility] Sunday 10:00 AM EDT With: Where: [facility] Sunday 1:00 PM EDT With: Where: [facility] 2023 2:00 PM EDT With: Where: [facility] Sunday 8:00 AM EDT With: Where: [address] [address]- Sunday 10:15 AM EST With: Betina Sampson MD Where: [address] [address]- Sunday 8:00 AM EDT With: Zachary ELAM MD Where: [facility] [address] [place] [address]- You Need to Schedule the Following Appointments Follow Up with Zachary ELAM MD, URL When: Where: [facility] [address], [place] [address]- Medications What How Much When Why Instructions Unchanged cholecalciferol (D3) 125 Microgram By Mouth Every day Contact prescribing physician if questions or concerns Unchanged isosorbide mononitrate (isosorbide mononitrate 30 mg ER Tab) 1 Tablets By Mouth Once a day (in the morning) Contact prescribing physician if questions or concerns Unchanged magnesium oxide 420 Milligram By Mouth Once a day (at bedtime) Contact prescribing physician if questions or concerns Unchanged metoprolol (Lopressor) 50 mg (take one- half tablet) By Mouth 2 times a day Contact prescribing physician if questions or concerns Unchanged ondansetron (ondansetron 8 mg Tab) 8 Milligram By Mouth Every 8 hours as needed for Nausea Malignant neoplasm of lower third of esophagus Contact prescribing physician if questions or concerns Unchanged ondansetron (ondan (more content not included)... Normal [facility] CBC w/ Auto Diffon 4 Basophils/100 WBC (Bld) 0.4 % Normal 0.0-2.0 [facility] Comment on above: Performed By: #### 2 [id number] #### [facility] [facility] [address] [place] [id number] Basophils/Leukocyte s Auto (Bld) [Pure # fraction] 0.0 E9/L Normal 0.0-0.2 [facility] Comment on above: Performed By: #### 2 [id number] #### [facility] [address] [place] [address] Eosinophils (Bld) [#/Vol] 0.1 E9/L Normal 0.0-0.5 [facility] Comment on above: Performed By: #### 2 [id number] #### [facility] [address] [place] [address] Eosinophils/100 WBC (Bld) 1.0 % Normal 0.0-8.0 [facility] Comment on above: Performed By: #### 2 [id number] #### [facility] [address] [place] [address] 97269 Erythrocyte distribution width (RBC) [Ratio] 14.3 % High 10.9-14.2 [facility] Comment on above: Performed By: #### 2 [id number] #### [facility] [address] [place] [address] Hematocrit (Bld) [Volume fraction] 35.4 % Low 37.7-49.0 [facility] Comment on above: Performed By: #### 2 [id number] #### [facility] [address] [place] [address] Hemoglobin (Bld) [Mass/Vol] 11.8 g/dL Low 13.5-17.5 [facility] Comment on above: Performed By: #### 2 [id number] #### [facility] [address] [place] [address] Lymphocytes (Bld) [#/Vol] 1.7 E9/L Normal 1.0-4.0 [facility] Comment on above: Performed By: #### 2 [id number] #### [facility] [address] [place] [address] Lymphocytes/100 WBC (Bld) 29.7 % Normal 14.0-50.0 [facility] Comment on above: Performed By: #### 2 [id number] #### [facility] [address] [place] [address] MCH (RBC) [Entitic mass] 29.5 pg Normal 27.0-34.0 [facility] Comment on above: Performed By: #### 2 [id number] #### [facility] [address] [place] [address] MCHC (RBC) [Mass/Vol] 33.4 g/dL Normal 31.4-36.0 [facility] Comment on above: Performed By: #### 2 [id number] #### [facility] [address] [place] [address] MCV (RBC) [Entitic vol] 88.5 fL Normal 80.0-100.0 [facility] Comment on above: Performed By: #### 2 [id number] #### [facility] [address] [place] [address] Monocytes (Bld) [#/Vol] 0.0 E9/L Low 0.2-1.0 [facility] Comment on above: Performed By: #### 2 [id number] #### [facility] [address] [place] [address] Neutrophils (Bld) [#/Vol] 4.0 E9/L Normal 2.0-7.5 [facility] Comment on above: Performed By: #### 2 [id number] #### [facility] [address] [place] [address] Neutrophils/100 WBC (Bld) 68.2 % Normal 36.0-75.0 [facility] Comment on above: Performed By: #### 2 534684 #### [facility] [address] [place] [address] Platelet mean volume (Bld) [Entitic vol] 7.8 fL Normal 6.4-10.8 [facility] Comment on above: Performed By: #### 2 [id number] #### [facility] [address] [place] [address] Platelets (Bld) [#/Vol] 166.0 E9/L Normal 150.0-500.0 [facility] Comment on above: Performed By: #### 2 [id number] #### [facility] [address] [place] [address] RBC (Bld) [#/Vol] 4.0 E12/L Low 4.3-5.9 [facility] Comment on above: Performed By: #### 2 985108 #### [facility] [address] [place] [address] WBC corrected for nucl RBC Auto (Bld) [#/Vol] 5.8 E9/L Normal 4.0-11.0 [facility] Comment on above: Performed By: #### 2 [id number] #### [facility] [address] [place] [address] CHEMISTRYOrdered By: SYSTEM SYSTEM on 04-22-2024 Albumin [Mass/Vol] 3.7 g/dL Normal 3.3 - 5.0 gm/dL R emisol Chem Albumin/Globulin [Mass ratio] 1.6 {ratio} Normal 1.1 - 2.2 Remisol Chem ALP [Catalytic activity/Vol] 58 [iU]/d Normal 21 - 98 Int._Unit/L Remisol Chem ALT No additional P-5'-P [Catalytic activity/Vol] 19 [iU]/d Normal 6 - 46 Int._Unit/L Remisol Chem Anion gap [Moles/Vol] 11 mmol/L Normal 6 - 16 mEq/L Remisol Chem AST [Catalytic activity/Vol] 14 [iU]/d Normal 5 - 43 Int._Unit/L Remisol Chem Bilirubin [Mass/Vol] 0.6 mg/dL Normal 0.0 - 1.1 mg/dL Remisol Chem Calcium [Mass/Vol] 8.8 mg/dL Low 8.9 - 11. 1 mg/dL Remisol Chem Chloride [Moles/Vol] 105 mmol/L Normal 101 - 111 mmol/L Remisol Chem CO2 [Moles/Vol] 26 mmol/L Normal 21 - 31 mmol/L Remis ol Chem Creatinine [Mass/Vol] 1.1 mg/dL Normal 0.5 - 1.3 mg/dL Remisol Chem eGFR 68 mL/min/1.73 m2 Normal >=59mL/min /1.73 m2 Remisol Chem Globulin (S) [Mass/Vol] 2.3 g/dL Normal 1.4 - 4.0 gm/dL Remisol Chem Glucose [Mass/Vol] 87 mg/dL Normal 55 - 199 mg/dL Re misol Chem Potassium [Moles/Vol] 4.3 mmol/L Normal 3.5 - 5.3 mmol/L Remisol Chem Protein [Mass/Vol] 6.0 g/dL Normal 6.0 - 7.8 gm/dL R emisol Chem Sodium [Moles/Vol] 138 mmol/L Normal 135 - 145 mmol/L Remisol Chem Urea nitrogen [Mass/Vol] 26 mg/dL High 5 - 21 mg/dL Remisol Chem Urea nitrogen/Creatinine [Mass ratio] 24 mg/mg High 10 - 20 Remisol Chem CMPon 04-22-2024 Albumin [Mass/Vol] 3.7 g/dL Normal 3.3-5.0 [facility] Comment on above: Performed By: #### 2 [id number] #### [facility] [address] [place] [address] Albumin/Globulin (S) [Mass conc ratio] 1.6 Normal 1.1-2.2 [facility] Comment on above: Performed By: #### 2 338161 #### [facility] [address] [place] [address] ALP [Catalytic activity/Vol] 58 Int._Unit/L Normal 21-98 [facility] Comment on above: Performed By: #### 2 [id number] #### [facility] [address] [place] [address] ALT No additional P-5'-P [Catalytic activity/Vol] 19 Int._Unit/L Normal 6-46 [facility] Comment on above: Performed By: #### 2 814172 #### [facility] [address] [place] [address] Anion gap [Moles/Vol] 11 mmol/L Normal 6-16 [facility] Comment on above: Performed By: #### 2 [id number] #### [facility] [address] [place] [address] AST [Catalytic activity/Vol] 14 Int._Unit/L Normal 5-43 [facility] Comment on above: Performed By: #### 2 [id number] #### [facility] [address] [place] [address] Bilirubin [Mass/Vol] 0.6 mg/dL Normal 0.0-1.1 [facility] Comment on above: Performed By: #### 2 169547 #### [facility] [address] [place] [address] Calcium [Mass/Vol] 8.8 mg/dL Low 8.9-11.1 [facility] Comment on above: Performed By: #### 2 130069 #### [facility] [address] [place] [address] Chloride [Moles/Vol] 105 mmol/L Normal 101-111 [facility] Comment on above: Performed By: #### 2 [id number] #### [facility] [address] [place] [address] CO2 [Moles/Vol] 26 mmol/L Normal 21-31 [facility] Comment on above: Performed By: #### 2 659625 #### [facility] [address] [place] [address] Creatinine [Mass/Vol] 1.1 mg/dL Normal 0.5-1.3 [facility] Comment on above: Performed By: #### 2 200657 #### [facility] [address] [place] [address] Globulin (S) [Mass/Vol] 2.3 g/dL Normal 1.4-4.0 [facility] Comment on above: Performed By: #### 2 794731 #### [facility] [address] [place] [address] Glucose [Mass/Vol] 87 mg/dL Normal 55-199 [facility] Comment on above: Performed By: #### 2 147482 #### [facility] [address] [place] [address] Potassium [Moles/Vol] 4.3 mmol/L Normal 3.5-5.3 [facility] Comment on above: Performed By: #### 2 668336 #### [facility] [address] [place] [address] Protein [Mass/Vol] 6.0 g/dL Normal 6.0-7.8 [facility] Comment on above: Performed By: #### 2 063235 #### [facility] [address] [place] [address] Sodium [Moles/Vol] 138 mmol/L Normal 135-145 [facility] Comment on above: Performed By: #### 2 400151 #### [facility] [address] [place] [address] Urea nitrogen [Mass/Vol] 26 mg/dL High 5-21 [facility] Comment on above: Performed By: #### 2 [id number] #### [facility] [address] [place] [address] Urea nitrogen/Creatinine [Mass ratio] 24 No Units High 10-20 [facility] Comment on above: Performed By: #### 2 [id number] #### [facility] [address] [place] [address] HEMATOLOGYOrdered By: SYSTEM SYSTEM on 04-22-2024 Basophils/100 WBC (Bld) 0.4 % Normal 0.0 - 2.0 % Remisol Heme Basophils/Leukocyte s Auto (Bld) [Pure # fraction] 0.0 E9/L Normal 0.0 - 0.2 E9/L Remisol Heme Eosinophils (Bld) [#/Vol] 0.1 E9/L Normal 0.0 - 0.5 E9/L Remisol Heme Eosinophils/100 WBC (Bld) 1.0 % Normal 0.0 - 8.0 % Remisol Heme Erythrocyte distribution width (RBC) [Ratio] 14.3 % High 10.9 - 14.2 % Remisol Heme Hematocrit (Bld) [Volume fraction] 35.4 % Low 37.7 - 49.0 % Remisol Heme Hemoglobin (Bld) [Mass/Vol] 11.8 g/dL Low 13.5 - 17.5 gm/dL Remisol Heme Lymphocytes (Bld) [#/Vol] 1.7 E9/L Normal 1.0 - 4.0 E9/L Remisol Heme Lymphocytes/100 WBC (Bld) 29.7 % Normal 14.0 - 50.0 % Remisol Heme MCH (RBC) [Entitic mass] 29.5 pg Normal 27.0 - 34.0 pg Remisol Heme MCHC (RBC) [Mass/Vol] 33.4 g/dL Normal 31.4 - 36.0 gm/dL Remisol Heme MCV (RBC) [Entitic vol] 88.5 fL Normal 80.0 - 100.0 fL Remisol Heme Monocytes (Bld) [#/Vol] 0.0 E9/L Low 0.2 - 1.0 E9/L Remisol Heme Monocytes/100 WBC (Bld) 0.7 % Low 4.0 - 14.0 % Remisol Heme Neutrophils (Bld) [#/Vol] 4.0 E9/L Normal 2.0 - 7.5 E9/L Remisol Heme Neutrophils/100 WBC (Bld) 68.2 % Normal 36.0 - 75.0 % Remisol Heme Platelet mean volume (Bld) [Entitic vol] 7.8 fL Normal 6.4 - 10.8 fL Remisol Heme Platelets (Bld) [#/Vol] 166.0 E9/L Normal 150.0 - 500.0 E9/L Remisol Heme RBC (Bld) [#/Vol] 4.0 E12/L Low 4.3 - 5.9 E12/L Re misol Heme WBC corrected for nucl RBC Auto (Bld) [#/Vol] 5.8 E9/L Normal 4.0 - 11.0 E9/L Remisol Heme Urology Office/Clinic Noteon 04-22-2024 Urology Office/Clinic Note Urology Office/Clinic Note Chief Complaint Cysto HPI Staff Cysto ABX TAKEN, review CT 03/10/24 History of Present Illness Tests reviewed: reviewed CT I have reviewed the previous health record information and history for this patient from Dr. Elam. I have reviewed and verified the staff HPI to be accurate for this encounter. Review of Systems PHQ Score Initial Depression Screen Score: 0 SCORE ROS - Provider Constitutional: denies weight loss, denies hot flashes. Eyes: denies eye problems. Gastrointestinal: denies nausea, denies vomiting. Cardiovascular: denies chest pain or angina. Integumentary: no dryness Musculoskeletal: denies musculoskeletal symptoms. ENMT: denies otolaryngeal symptoms. Respiratory: no shortness of breath. Heme/Lymph: denies easy bleeding tendency, denies easy bruising tendency. Psychiatric: no confusion, no anxiety. Genitourinary: See HPI. Physical Exam Vitals & Measurements HT: 67 in HT: 170 cm WT: 91 kg WT: 200.2 lb BMI: 31.49 General Appearance: alert, no distress, well nourished, well developed male. Genitourinary: normal scrotum, normal testes, normal urethra, normal epididymis, normal vas deferens/spermatic cord. Flank Pain: none. Bladder: nonpalpable. Procedure Operative Information Anesthesia Type: Local Procedure: Local Cystoscopy Complications: None Surgical risks, benefits, details of the procedure have been explained to the patient. Full informed consent has been obtained. Intraoperative Information Prepped: Patient is brought back to the endoscopy suite. Patient is placed in supine position. Patient prepped in the usual fashion with Betadine solution. 2% Xylocaine Jelly is placed per Urethra. After waiting several minutes, the Cystoscope is introduced. The Urethra is: Normal The Prostatic Urethra is: _Trilobar obstruction. Median lobe protrudes into the bladder, this is the mass seen on CT. The Bladder: _No tumors or stones, Trabeculated: Severe (3) with open diverticuli. The Ureteral orifices: Show efflux of clear urine Specimens Removed: None Removal: Cystoscope is removed. The patient tolerated it well. Postoperative Information Patient is discharged home with antibiotic coverage. Follow up arranged. Assessment/Plan 1. Abnormal CT scan, pelvis (R93.5: Abnormal findings on diagnostic imaging of other abdominal regions, including retroperitoneum) CT CAP 03/10/24 [facility] - Prostate mildly enlarged ~5 x 4.3 x 4.2 cm. Posterior bladder wall lesion vs prostate nodule indenting upon the urinary bladder ~2.7 cm. Pt had IO cysto today wo complications. See procedure section. 2. History of kidney stones (Z87.442: Personal history of urinary calculi) [facility] ER 04/07/23 with severe right flank pain. CT AP wo con 04/07/23 - An 8-9 mm right mid to proximal ureteral calculus with ipsilateral hydronephrosis. Urology consulted. S/p cysto with R stent placement 04/07/23. S/p R ESWL without stent replacement 05/24/23. Did not pass any fragments after surgery. Stone analysis 05/24/23 100% ca ox monohydrate. [facility] 12/18/23 is neg for obvious stones. Large stool burden. CT CAP 03/10/24 [facility] - Neg for urinary tract calculi. Pt has 1 yr f/u with [facility] on 12/26/24 or sooner if needed. Pt understands and agrees with plan. 3. BPH with urinary obstruction (N40.1: Benign prostatic hyperplasia with lower urinary tract symptoms) See procedure section. Discussed starting Flomax, pt deferred at this time. Follow-up With When Contact Information PAPA DELONG, Zachary Meléndez, [facility] [address], [place] [id number]- Additional Instructions: 1 yr f/u with [facility] on 12/26/24 Patient Education Incidental Abnormal Radiological Finding ISallie, personally scribed for Dr. Elam on 04/22/2024 08:55:34. . Documentation recorded by the scribe, Sallie Mays, accurately reflects the services(s) I performed and decisions made by me. Authenticated by Dr. Elam on 04/22/2024 08:59:02. Problem List/Past Medical History Ongoing Abnormal CT scan, pelvis 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 BPH with urinary obstruction Bradycardia CAD in [place] artery Chronic kidney disease, stage 3a Closed displaced fracture of shaft of right clavicle COVID Dyspnea on exertion Hard of hearing 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 History of kidney stones HLD (hyperlipidemia) Hospital discharge follow-up Hx of cardiac catheterization Malignant neoplasm of lower third of esophagus Mild diastolic dysfunction Mild persistent asthma without complication Primary hypertension Renal stone TIA on medication Ureteral stone with hydronephrosis Vitamin D deficiency Historical No qualifying data Procedure/Surgical History Insertion of peripherally inserted central venous access device, with subcutaneous port; age 5 years or older (04/16/2024), Esophagogast (more content not included)... Normal [facility] Comment on above: Result Comment: Elec tronically Signed By: PAPA DELONG, Zachary Meléndez\.br\Date and Time Signed: 04/22/24 08:59 EDT\.br\Electronically Co-Signed By: Sallie Mays\.br\Date and Time Co-Signed: 04/22/24 08:55 EDT eGFRon 04-22-2024 eGFR 68 mL/min/1.73 m2 Normal >=59 [facility] Comment on above: Order Comment: Order added by Discern Expert. Performed By: #### 1 [id number] #### [facility] [address] [place] [address] Ambulatory Visit Summaryon 0 04-21-2024 Ambulatory Visit Summary Ambulatory Visit Summary J[place] CORRIGAN :1945 Visit Date:04/21/2024 Ambulatory Visit Instructions Your Diagnosis 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 CAD in [place] artery BMI 31.0-31.9,adult Class 1 obesity due to excess calories in adult Nonsmoker Chronic kidney disease, stage 3a These Are Your Goals Complications of Hypertension Avoided - Not met Interventions: Follow low sodium diet - Progressing Keep follow up appointments with provider and complete testing as directed - Progressing Monitor and keep BP log; at least 3 days per week - Not done Review educational material - Done Take Medications as Prescribed - Progressing Complications of Kidney Disease Avoided - Not met Interventions: Avoid high sodium, potassium foods such as; bananas, avacados, canned soups, pickled foods, etc... - Progressing Complete testing/ blood work as directed per provider - Progressing Keep follow up appointments with provider as directed - Progressing Review educational material - Done Complications of Hyperlipidemia avoided - Not met Interventions: Complete bloodwork as directed by provider - Progressing Keep follow up appointments as scheduled - Progressing Maintain active healthy lifestyle and avoid foods high in saturated fats - Progressing Review educational material - Done Take Medications as Prescribed - Progressing CAD complications avoided - Not met Interventions: Keep follow up appointments as scheduled and complete testing, bloodwork as directed by provider - Progressing Maintain an active healthy lifestyle - Progressing Review educational material - Done Take medications as prescribed - Progressing Your Care Team Attending Physician - Betina Sampson MD Primary Care Physician - Betina Sampson MD This Is Your Medications List cholecalciferol (D3) isosorbide mononitrate (isosorbide mononitrate 30 mg ER Tab) magnesium oxide metoprolol (Lopressor) ondansetron (ondansetron 8 mg Tab) ondansetron (ondansetron 8 mg Tab) pantoprazole (Pantoprazole [address] Tab) pantoprazole (Pantoprazole [address] Tab) prochlorperazine (prochlorperazine 10 mg Tab) prochlorperazine (prochlorperazine 10 mg Tab) simvastatin sucralfate (Carafate 1 gram Tab) Procedures Performed Insertion of peripherally inserted central venous access device, with subcutaneous port; age 5 years or older (04/16/2024), Esophagogastroduodenoscop y (03/09/2024), Cystoscopic laser lithotripsy of ureteric calculus (05/24/2023), ESWL of kidney (05/03/2023), Cystoscopic insertion of ureteric stent (04/07/2023), Placement of stent in cardiac conduit (11/2017), Colonoscopy (2017), Carpal tunnel syndrome of left wrist, Carpal tunnel syndrome of right wrist, Kidney stone, Port. Discharge Vitals Temperature (Temporal Artery) 37.0 ?C Heart Rate (Peripheral) 68 Respiratory Rate 16 Blood Pressure 122/68 Height 170 cm Height 67 in Weight 91.7 kg Weight 201.74 lb BMI 31.73 What to do next Scheduled Follow-Up Appointments Sunday 8:30 AM EDT With: PAPA DELONG, Zachary Meléndez Where: [facility] [address] [place] [address]- Sunday 1:20 PM EDT With: Where: [facility] Sunday 1:40 PM EDT With: Elaine DELONG, Mallory Michaels Where: [facility] Sunday 1:00 PM EDT With: FABRICE MEMBRENO MD Where: [facility] Sunday 2:30 PM EDT With: Where: [facility] Sunday 10:00 AM EDT With: Where: [facility] Sunday 1:00 PM EDT With: Where: [facility] 2023 2:00 PM EDT With: Where: [facility] Sunday 8:00 AM EDT With: Where: [address] [address]- Sunday 10:15 AM EST With: Adrián DELONG, Betina Anna Where: [address] [address]- Sunday 8:00 AM EDT With: Zachary ELAM MD Where: [facility] [address] [place] [address]- Medications What How Much When Why Instructions Unchanged cholecalciferol (D3) 125 Microgram By Mouth Every day Contact prescribing physician if questions or concerns Unchanged isosorbide mononitrate (isosorbide mononitrate 30 mg ER Tab) 1 Tablets By Mouth Once a day (in the morning) Contact prescribing physician if questions or concerns Unchanged magnesium oxide 420 Milligram By Mouth Once a day (at bedtime) Contact prescribing physician if questions or concerns Unchanged metoprolol (Lopressor) 50 mg (take one- half tablet) By Mouth 2 times a day Contact prescribing physician if questions or concerns Unchanged ondansetron (ond (more content not included)... Normal [facility] Family Medicine Office/Clini c Noteon 04-21-2024 Family Medicine Office/Clinic Note Family Medicine Office/Clinic Note HPI Staff [place] is a 78 year old male presenting for 3-4 month follow up CKD, HTN, CAD Patient is here for follow up on hypertension. How often are you checking your blood pressure? Doesnt check BP at home What are your average readings? N/A, Not checking at home Yearly BMP: 03/10/24_ History of Present Illness - See staff HPI. Review of Systems PHQ Score Initial Depression Screen Score: 0 SCORE Physical Exam Vitals & Measurements T: 37.0 ?C(Temporal Artery) HR: 68(Peripheral) RR: 16 BP: 122/68 SpO2: 98% HT: 67 in HT: 170 cm WT: 91.7 kg WT: 201.74 lb BMI: 31.73 General: alert, no acute distress ENMT: oral mucosa moist, Cardiovascular: regular rate and rhythm, normal peripheral perfusion Respiratory: Lungs CTA, respirations non labored Extremities: no deformity, no trauma Neurological: oriented x 4, LOC appropriate for age, CN II-XII intact, motor strength equal & normal bilaterally, speech normal Abdomen: Soft, Nontender, Non-distended, + BS Assessment/Plan 1. 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 (I12.9: Hypertensive chronic kidney disease with stage 1 through stage 4 chronic kidney disease, or unspecified chronic kidney disease) - Stable at this time. Ordered: Body Mass Index (BMI) documented 3008F Current tobacco non-user 1036F Depression Screening Negative 3352F Most recent diastolic blood pressure <80 mm Hg 3078F Patient screen for fall risk: no falls in last year or 1 fall with no injury in last year 1101F Systolic BP <130 mm Hg (Most Recent) 3074F 2. CAD in [place] artery (I25.10: Atherosclerotic heart disease of [place] coronary artery without angina pectoris) - NO CP at this time. Ordered: Body Mass Index (BMI) documented 3008F Current tobacco non-user 1036F Depression Screening Negative 3352F Most recent diastolic blood pressure <80 mm Hg 3078F Patient screen for fall risk: no falls in last year or 1 fall with no injury in last year 1101F Systolic BP <130 mm Hg (Most Recent) 3074F 3. BMI 31.0-31.9,adult (Z68.31: Body mass index [BMI] 31.0-31.9, adult) - BMI education added Ordered: Body Mass Index (BMI) documented 3008F Current tobacco non-user 1036F Depression Screening Negative 3352F Most recent diastolic blood pressure <80 mm Hg 3078F Patient screen for fall risk: no falls in last year or 1 fall with no injury in last year 1101F Systolic BP <130 mm Hg (Most Recent) 3074F 4. Class 1 obesity due to excess calories in adult (E66.09: Other obesity due to excess calories) - DIet and exercise advised Ordered: Body Mass Index (BMI) documented 3008F Current tobacco non-user 1036F Depression Screening Negative 3352F Most recent diastolic blood pressure <80 mm Hg 3078F Patient screen for fall risk: no falls in last year or 1 fall with no injury in last year 1101F Systolic BP <130 mm Hg (Most Recent) 3074F 5. Nonsmoker (Z78.9: Other specified health status) - Please continue to not smoke. Ordered: Body Mass Index (BMI) documented 3008F Current tobacco non-user 1036F Depression Screening Negative 3352F Most recent diastolic blood pressure <80 mm Hg 3078F Patient screen for fall risk: no falls in last year or 1 fall with no injury in last year 1101F Systolic BP <130 mm Hg (Most Recent) 3074F 6. Primary hypertension (I10: Essential (primary) hypertension) - at goal. - Follow up PRN 7. Malignant neoplasm of lower third of esophagus (C15.5: Malignant neoplasm of lower third of esophagus) - Seeing Oncology - Follow up PRN Chronic kidney disease, stage 3a (N18.31: Chronic kidney disease, stage 3a) Follow-up No qualifying data available 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 Bradycardia CAD in [place] artery Chronic kidney disease, stage 3a Closed displaced fracture of shaft of right clavicle COVID Dyspnea on exertion Hard of hearing 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 HLD (hyperlipidemia) Hospital discharge follow-up Hx of cardiac catheterization Malignant neoplasm of lower third of esophagus Mild diastolic dysfunction Mild persistent asthma without complication Primary hypertension Renal stone TIA on medication Ureteral stone with hydronephrosis Vitamin D deficiency Historical No qualifying data Procedure/Surgical History Insertion of peripherally inserted central venous access device, with subcutaneous port; age 5 years or older (04/16/2024), Esophagogastroduodenoscop y (03/09/2024), Cystoscopic laser lithotripsy of ureteric calculus (05/24/2023), ESWL of kidney (05/03/2023), Cystoscopic insertion of ureteric stent (04/07/2023), Placement of stent in cardiac conduit (11/2017), Colonoscopy (2018), Carpal tunnel syndrome of left wrist, Carpal tunnel syndrome of right wrist, Kidney stone, Port. Medications Carafate 1 gram Tab, 1 gm= 1 tab(s), Oral, QID D3, 125 mcg, Oral, Daily hepar (more content not included)... Normal [facility] Comment on above: Result Comment: Elec tronically Signed By: Adrián DELONG, Betina Anna\.br\Date and Time Signed: 04/21/24 16:09 EDT MRI Brain w/ + w/o Contrasto n 04-18-2024 MRI Brain w/ + w/o Contrast Exam Date/Time: 04/14/2024 18:16 EDT Reason for Exam: rule out brain mets;Other (please specify) Report IMPRESSION: No acute intracranial process or suspicious enhancement. 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 Concern for brain metastases. History of TIA. TECHNIQUE: Routine brain MRI protocol without and with contrast including diffusion images. CONTRAST: 8.5 mL gadolinium (Vueway) COMPARISON: PET/CT 03/26/2024. RESULT: Acute Change: There is no evidence of restricted diffusion to suggest an acute infarct. Hemorrhage: No evidence of prior parenchymal hemorrhage. Mass Lesion/ Mass Effect: No evidence of an intracranial mass or extra-axial fluid collection. No abnormal parenchymal or leptomeningeal enhancement following contrast administration. No significant mass effect. Chronic Change: Scattered punctate foci of increased T2 and FLAIR signal are noted in the supratentorial white matter which is a nonspecific finding, but likely represents minimal chronic microvascular ischemia or may be within normal limits for age. Punctate lacunar infarct right midbrain. Parenchyma: There is mild generalized parenchymal volume loss. Ventricles: Normal caliber and morphology. Skull Base: Hypothalamic and pituitary region are grossly normal. Craniocervical junction is normal. No significant marrow replacement process. Vasculature: Major intracranial arterial structures, and dural venous sinuses show typical flow void, suggesting patency. Other: Mild thickening of the paranasal sinuses. Trace fluid mastoid air cells. The orbits are unremarkable. The extracranial soft tissues are unremarkable. Report Ordering Provider: Mallory Henry FINAL REPORT Dictated: 04/18/2024 2:41 pm Abraham Carson MD Signed (Electronic Signature): 04/18/2024 2:41 pm Signed by: Abraham Carson MD Transcribed by: DOLORES Technologist: KERRY Technical Comments Vueway Contrast amount in ml's: 8.5 Normal [facility] Serotonin Lvlon 04-18-2024 Serotonin (S) [Mass/Vol] 168 ng/mL Invalid Interpretation Code 23-170 [facility] Comment on above: Result Comment: This test was developed and its performance characteristics determined by [facility]. It has not been cleared or approved by the Food and Drug Administration. Performed at: [address] [id number] MD Cam Herrera Performed By: #### 1 [id number] #### [facility] [address] [place] [address] 07 Addendum Reporton 024 07 Addendum Report [facility] [address] [place] [address]- Surgical Pathology Report Collected Date/Time: 03/09/2024 08:12 EDT Pathologist: Candelario Israel MD Received Date/Time: 03/10/2024 07:59 EDT Jason DELONG, Honorio Gomez MD, Honorio Anna 07 Addendum Report - 04/17/2024 11:10 EDT - Auth (Verified) Addendum Please see the outside scanned report from [facility] for the PD-L1 Quant under lab documents-reference lab reports. (Electronic Signature) Yan. Lindy MD 04/17/2024 11:10 Addendum Reason Initial diagnosis remains unchanged. 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 Appropriate positive controls reviewed. Clinicopathological correlation is recommended. (Electronic Signature) Shahram. Freida MD 03/18/2024 14:16 Addendum Reason Immunohistochemical staining report 07 Surgical Pathology Report - 03/11/2024 14:44 EDT - Auth (Verified) Final Diagnosis A. 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 - Pending immunohistochemical stains (CD45, CDX-2, CK7, CK20, CK5/6, P40, Chromogranin, Synaptophysin, Ki67). B. STOMACH, ANTRUM, BIOPSY: - Antral- type gastric mucosa with mild chronic inactive gastritis. - Pending Helicobacter pylori immunohistochemical stain. (Electronic Signature) Yan. Lindy MD 03/11/2024 14:44 Diagnosis Comment This case was discussed with Dr. Gomez on 03/11/24 at 2:40 pm. Surgical Pathology Report Collected Date/Time: 03/09/2024 08:12 EDT Pathologist: Candelario Israel MD Received Date/Time: 03/10/2024 07:59 EDT Jason DELONG, Honorio Gomez MD, Honorio Anna Clinical Information Hematemesis Pre-Op Diagnosis: Hematemesis Procedure: EGD Post-Op Diagnosis: An esophageal mass was identified at the gastroesophageal junction. The size of the mass was large. The mass was fungating. Multiple biopsies were collected. Esophageal mass: Large fungating mass taking 50% of the circumference of the esophagus at the GE junction ranging from 35 to 41 cm from the teeth multiple biopsies were taken. Mild antral gastritis multiple biopsies taken Specimen(s) Received A: GE junction tumor biopsy B: Antrum biopsy Gross Description A: Received in formalin labeled with patient name, identifier, and gastroesophageal junction tumor biopsy are multiple fragments of aleman-pink tissue ranging from 0.2 to 0.4 cm in greatest dimension. Entire specimen submitted in one cassette. B: Received in formalin labeled with patient name, identifier, and antral biopsy are two fragments of aleman/pink tissue measuring 0.1 and 0.2 cm in greatest dimension. Entire specimen submitted in one cassette. (YC) YC:[facility] Microscopic Description A&B: Microscopic examination performed unless gross only specified. The use of one or more reagents in the above tests is regulated as an analyte specific reagent (ASR). The test or tests are ordered following initial H&E microscopic examination. The performance characteristics were determined by the Laboratory of [facility]. They have not been cleared or approved by the US Food and Drug Administration. The FDA has determined that such clearance or approval is not necessary. These tests are used for clinical purposes. They should not be regarded as investigational or for research. Appropriate positive and negative controls are performed and are acceptable. Normal [facility] Comment on above: Performed By: #### C [id number] #### [facility] [address] [place] [address] Main OR Intraoperative Recor don 04-17-2024 Main OR Intraoperative Record Main OR Intraoperative Record IntraOp Document Type FT Summary Primary Physician: Honorio Gomez MD Finalized Date/Time: 04/17/24 09:02:32 Pt. Name: SHEKHARJAMAICA./Sex: 1945 Male Med Rec #: [id number] Physician: Honorio Gomez MD Financial #: [id number] Pt. Type: A Room/Bed: [place] [address] Admit/Disch: 04/16/24 09:23:27 - 04/16/24 13:50:00 Institution: Case Times FT Entry 1 Patient Times In Room 04/16/24 10:43:00 Out Room 04/16/24 11:38:00 Procedure Times Start 04/16/24 11:02:00 Stop 04/16/24 11:33:00 Anesthesia Times Start 04/16/24 10:43:00 Stop 04/16/24 11:38:00 Last Modified By: Ifrah Jones 04/16/24 11:38:18 General Comments: 04/17/24 Chart opened to review and send charges [facility]oth CSFA Case Attendance FT Entry 1 Entry 2 Entry 3 Case Attendee Honorio Stein MD, Ifrah Koo Role Performed Anesthesiologist Surgeon - Primary Computer Typesetter - Primary Ore Smelter Time In 04/16/24 10:43:00 04/16/24 10:43:00 04/16/24 10:43:00 Time Out 04/16/24 11:38:00 04/16/24 11:38:00 04/16/24 11:38:00 Procedure INFUSAPORT INSERTION(.) INFUSAPORT INSERTION(.) INFUSAPORT INSERTION(.) Comments IS SUPERVISING Last Modified By: Ifrah Jones Kelsie E Burgderfer, Kelsie E 04/16/24 11:38:19 04/16/24 11:38:19 04/16/24 11:38:19 Entry 4 Entry 5 Entry 6 Case Attendee Max CEDILLO, Awilda Hartmann, Charla Foy SOUND EQUIPMENT MECHANIC, Seth Ram Role Performed Scrub - Primary Mantel Craftsman Staff - Other Time In 04/16/24 10:43:00 04/16/24 10:43:00 04/16/24 10:43:00 Time Out 04/16/24 11:38:00 04/16/24 11:38:00 04/16/24 10:55:00 Procedure INFUSAPORT INSERTION(.) INFUSAPORT INSERTION(.) INFUSAPORT INSERTION(.) Comments ASSISTING NEEDED Last Modified By: Ifrah Jones Kelsie E Burgderfer, Kelsie E 04/16/24 11:38:19 04/16/24 11:38:19 04/16/24 11:38:19 Perioperative Protocols FT Pre-Care Text: Implements protective measures prior to operative or invasive procedure, confirms identity before the operative or invasive procedure, verifies operative procedure, surgical site, and laterality Entry 1 Procedure(s) INFUSAPORT INSERTION(.) Patient Identity Birthday, ID Band Verified (select at Check, Patient least 2): Participation Consents / H and P Anesthesia Consent, Operative Site Present Verified H&P, Surgery/Procedure Marking Verified Consent, Transfusion Consent Surgical Site Yes Laterality Verified Yes Verified Procedure Verified Yes Correct Patient Yes Position Verified Availability Equipment, Implant, Prep Dry Yes Verified (If Medication, X-ray Applicable) PreOp Antibiotic Yes Time Out Kade CAA, Honorio C., Given Participants Jason DELONG, Honorio Anna, Ifrah Jones, Max CEDILLO, Mary Kate Ruggiero Chelsea R Time Out Complete 04/16/24 10:59:00 Outcomes Met? Yes Last Modified By: Ifrah Jones 04/16/24 11:07:19 Post-Care Text: The patient is free from signs and symptoms of injury caused by extraneous objects Allergy Information FT Pre-Care Text: Verifies allergies Entry 1 Allergies Reviewed? Yes Allergies Reviewed Self/Patient With Outcomes Met? Yes Last Modified By: Ifrah Jones 04/16/24 10:58:17 Post-Care Text: The patient received appropriate medication(s) safely administered during the perioperative period Surgical Procedures FT Entry 1 Procedure Description Procedure INFUSAPORT INSERTION Modifiers . Surgeon Description LEFT SIDED INFUSAPORT INSERTION Primary Procedure Yes Primary Surgeon Honorio Gomez MD Start 04/16/24 11:02:00 Stop 04/16/24 11:33:00 Anesthesia Type General Surgical Service General Wound Class 1 - Clean Last Modified By: Ifrah Jones 04/16/24 11:38:21 General Case Data FT Pre-Care Text: Classifies surgical wound, implements aseptic technique, initiates traffic control Entry 1 Case Information OR OR 6 FT Case Level Level 2 Wound Class 1 - Clean Specialty General ASA Class 4 Preop Diagnosis LACK OF INTRAVENOUS Postop Same As Preop Yes ACCESS Postop Diagnosis LACK OF INTRAVENOUS Outcomes Met? Yes ACCESS Last Modified By: Ifrah Jones 04/16/24 11:09:07 Post-Care Text: The patient is free from signs and symptoms of infection Skin Assessment (Pre Procedure) FT Pre-Care Text: Implements protective measures to prevent skin/ tissue injury due to thermal or mechanical sources Evaluates for signs and symptoms of physical injury to skin and tissue Entry 1 Skin Integrity Intact, [place], Warm, & Skin Abnormality No Dry Outcomes Met? Yes Last Modified By: Ifrah Jones 04/16/24 10:59:49 Post-Care Text: The patient is free from signs and symptoms of injury caused by extraneous objects Patient Positioning FT Pre-Care Text: Identifies physical alterations that require additional precautions for procedure-specific positioning, verifies presence of prosthetics or (more content not included)... Normal [facility] Discharge Instructionson Discharge Instructions Discharge Instructions JAMAICA CORRIGAN :1945 Visit Date:04/16/2024 Inpatient Discharge Instructions Your Care Team Admitting Physician - Honorio Gomez MD Referring Physician - Honorio Gomez MD Reason for Your Visit LACK OF INTRAVENOUS ACCESS Your Diagnosis Lack of intravenous access Malignant neoplasm of lower third of esophagus Tests Performed XR Chest Single View XR Fluoroscopy Up to 1 Hour -- Results Pending -- Please visit your patient portal for your results or contact your primary care physician. This Is Your Medications List cholecalciferol (D3) ciprofloxacin (Cipro 500 mg Tab) isosorbide mononitrate (isosorbide mononitrate 30 mg ER Tab) magnesium oxide metoprolol (Lopressor) ondansetron (ondansetron 8 mg Tab) pantoprazole (Pantoprazole [address] Tab) prochlorperazine (prochlorperazine 10 mg Tab) simvastatin sucralfate (Carafate 1 gram Tab) Procedure History Esophagogastroduodenoscop y (03/09/2024), Cystoscopic laser lithotripsy of ureteric calculus (05/24/2023), ESWL of kidney (05/03/2023), Cystoscopic insertion of ureteric stent (04/07/2023), Placement of stent in cardiac conduit (11/2017), Colonoscopy (2017), Carpal tunnel syndrome of left wrist, Carpal tunnel syndrome of right wrist, Kidney stone. What to do next Instructions From Your Doctor Event Name Event Result Discharge Instructions Freetext ok to remove outer dressing and shower tomorrow do not remove steris strips Discharge Activity Resume normal activities in 24 hours, Expect mild pain, Expect minimal amount of drainage and/or bleeding Discharge Restrictions No driving for 24 hrs, Do not make important decisions for 24 hours, Do not drink alcoholic beverages for 24 hours Discharge Diet(s) Regular Call Your Doctor For Persistent or heavy bleeding, Temperature above 101.5 degrees, Redness, swelling, or pus at operative site, Severe pain at the operative site, Persistent vomiting Discharge Instructions Discharge Instructions Previously Scheduled Follow-Up Appointments 2023 1:00 PM EDT With: Where: [facility] Sunday 1:00 PM EDT With: Where: [facility] Sunday 4:15 PM EDT With: Adrián DELONG, Betina Anna Where: [address] [address]- Sunday 8:30 AM EDT With: Zahcary ELAM MD Where: [facility] [address] [address]- Sunday 1:20 PM EDT With: Where: [facility] Sunday 1:40 PM EDT With: Elaine DELONG, Mallory Michaels Where: [facility] Sunday 1:00 PM EDT With: FABRICE MEMBRENO MD Where: [facility] Sunday 8:00 AM EDT With: Where: [address] [address]- Sunday 8:00 AM EDT With: Zachary ELAM MD Where: [facility] [address] [place], [place] [id number]- New Follow Up Appointments after Discharge Follow Up with follow up with medical oncology When: Medications What How Much When Why Instructions Next Dose Unchanged cholecalciferol (D3) 125 Microgram By Mouth Every day Unchanged ciprofloxacin (Cipro 500 mg Tab) 1 Tablets By Mouth Every day Take 1 tablet the day before the procedure and 1 tablet after the procedure Unchanged isosorbide mononitrate (isosorbide mononitrate 30 mg ER Tab) 1 Tablets By Mouth Once a day (in the morning) Unchanged magnesium oxide 420 Milligram By Mouth Once a day (at bedtime) Unchanged metoprolol (Lopressor) 50 mg (take one- half tablet) By Mouth 2 times a day Unchanged ondansetron (ondansetron 8 mg Tab) 1 Tablets By Mouth Every 8 hours as needed for Nausea/Vomiting Cancer, neuroendocrine, poorly differentiated Unchanged pantoprazole (Pantoprazole [address] Tab) 1 Tablets By Mouth 2 times a day Unchanged prochlorperazine (prochlorperazine 10 mg Tab) 1 Tablets By Mouth Every 6 hours as needed for Nausea/Vomiting Cancer, neuroendocrine, poorly differentiated Unchanged simvastatin 10 Milligram By Mouth Every day Unchanged sucralfate (Carafate 1 gram Tab) 1 Tablets By Mouth 4 times a day May dissolve in 10 mls of fluid Test Results No qualifying data available. Allergies No Known Medication Allergies Problems Ongoing - Any problem that you are currently receiving treatment for. 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 Normal [facility] Comment on above: Result Comment: Elec tronically Signed By: Alfonso SPAULDING, Charla Franco\.br\Date and Time Signed: 04/16/24 12:57 EDT Inpatient Patient Summaryon 04-16-2024 Inpatient Patient Summary Inpatient Patient Summary [place] [id number] [facility] Clinical Discharge Instructions PERSON INFORMATION Name: JAMAICA CORRIGAN [facility]#:[id number] PHYSICIANS Admitting Physician: Honorio Gomez MD Attending Physician: Honorio Gomez MD PCP: Betina Sampson MD Discharge Diagnosis: Comment: PATIENT EDUCATION INFORMATION Instructions: Implanted Port Insertion, Care After Medication Leaflets: Follow up: With: Address: When: follow up with medical oncology Type Location Start Finish State ONC [place] (FT) [facility] 04/17/2024 1:00 PM 04/17/2024 3:00 PM Confirmed ONC [place] (FT) FT.ONCOLOGY 04/18/2024 1:00 PM 04/18/2024 3:00 PM Confirmed FM Open [facility] [place] 04/21/2024 4:15 PM 04/21/2024 4:30 PM Confirmed URO Procedure 15 min [facility] [place] 04/22/2024 8:30 AM 04/22/2024 8:45 AM Confirmed ONC Lab Port (FT) FT.ONCOLOGY 04/22/2024 1:20 PM 04/22/2024 1:35 PM Confirmed ONC Office Visit 20 (FT) FT.ONCOLOGY 04/22/2024 1:40 PM 04/22/2024 2:00 PM Confirmed ONC Supportive Care New (FT) FT.ONCOLOGY 04/23/2024 1:00 PM 04/23/2024 2:00 PM Confirmed FM Medicare Wellness Subsequent [facility] [place] 07/08/2024 8:00 AM 07/08/2024 9:00 AM Confirmed URO Office Visit [facility] [place] 12/26/2024 8:00 AM 12/26/2024 8:15 AM Confirmed MEDICATION LIST Medications to Continue with No Changes Other Medications cholecalciferol (D3) 125 Microgram By Mouth every day. ciprofloxacin (Cipro 500 mg Tab) 1 Tablets By Mouth every day. Take 1 tablet the day before the procedure and 1 tablet after the procedure. Refills: 0. isosorbide mononitrate (isosorbide mononitrate 30 mg ER Tab) 1 Tablets By Mouth once a day (in the morning). Refills: 0. magnesium oxide 420 Milligram By Mouth once a day (at bedtime). metoprolol (Lopressor) 50 mg (take one- half tablet) By Mouth 2 times a day. ondansetron (ondansetron 8 mg Tab) 1 Tablets By Mouth every 8 hours as needed Nausea/Vomiting. Refills: 1. pantoprazole (Pantoprazole [address] Tab) 1 Tablets By Mouth 2 times a day. Refills: 0. prochlorperazine (prochlorperazine 10 mg Tab) 1 Tablets By Mouth every 6 hours as needed Nausea/Vomiting. Refills: 1. simvastatin 10 Milligram By Mouth every day., patient does not take atorva- ccm intake Lindy sucralfate (Carafate 1 gram Tab) 1 Tablets By Mouth 4 times a day. May dissolve in 10 mls of fluid. Refills: 0. Comment: Krystyna [facility] Main OR PACU I Recordon 03-25 Main OR PACU I Record Main OR PACU I Record PACU Phase I Document Type FT Summary Primary Physician: Honorio Gomez MD Finalized Date/Time: 04/16/24 12:16:08 Pt. Name: JAMAICA CORRIGAN Esperanza/Sex: 1945 Male Med Rec #: [id number] Physician: Honorio Gomez MD Financial #: [id number] Pt. Type: A Room/Bed: [place] [address] Admit/Disch: 04/16/24 09:23:27 - Institution: Case Times PACU I FT Pre-Care Text: Identifies barriers to communication and implements measures to provide psychological support Develops individualized plan of care, and ensures continuity of care Maintains patient's dignity and privacy, and maintains patient confidentiality Identifies and reports philosophical, cultural, and spiritual beliefs and values Identifies individual values and wishes concerning care Implements aseptic technique, and administers prescribed antibiotic therapy and immunizing agents as ordered Evaluates postoperative tissue perfusion Implements thermoregulation measures, and monitors body temperature Evaluates postoperative respiratory status Evaluates postoperative cardiac status Evaluates postoperative neurological status Assesses pain control, collaborated in initiating patient-controlled analgesia and implements alternative methods of pain control Verifies allergies, administers prescribed medications and solutions, evaluates response to medications Entry 1 In PACU I 04/16/24 11:40:00 Discharge from PACU 04/16/24 12:10:00 I Outcomes Met? Yes Last Modified By: Nani Talavera RN 04/16/24 12:15:54 Post-Care Text: The patient demonstrates knowledge of the expected response to the operative or invasive procedure The patient's care is consistent with the individualized perioperative plan of care The patient's right to privacy is maintained The patient's value system, lifestyle, ethnicity, and culture are considered, respected, and incorporated into the perioperative plan of care The patient participates in decisions affecting his or her perioperative plan of care The patient is free from signs and symptoms of infection The patient has wound/tissue perfusion consistent with or improved from baseline levels established preoperatively The patient is at or returning to normothermia at the conclusion of the immediate postoperative period The patient's respiratory function is consistent with or improved from baseline levels established preoperatively The patient's cardiovascular status is consistent with or improved from baseline levels established preoperatively The patient's cardiovascular status is consistent with or improved from baseline levels established preoperatively The patient demonstrates and/or reports adequate pain control throughout the perioperative period The patient received appropriate medication(s), safely administered during the perioperative period Acuity Level PACU I FT Entry 1 Start Time 04/16/24 11:40:00 Stop Time 04/16/24 12:10:00 Acuity Level Acuity Level I Last Modified By: Nani Talavera RN 04/16/24 12:16:05 Finalized By: Nani Talavera RN Document Signatures Signed By: Nani Talavera RN 04/16/24 12:16 Normal [facility] Main OR PACU II Recordon Main OR PACU II Record Main OR PACU II Record PACU Phase II Document Type FT Summary Primary Physician: Honorio Gomez MD Finalized Date/Time: 04/16/24 13:58:00 Pt. Name: SHEKHARJAMAICA./Sex: 1945 Male Med Rec #: [id number] Physician: Honorio Gomez MD Financial #: [id number] Pt. Type: A Room/Bed: [place] [address] Admit/Disch: 04/16/24 09:23:27 - Institution: Case Times PACU II FT Pre-Care Text: Identifies barriers to communication and implements measures to provide psychological support and determines knowledge level Develops individualized plan of care, and ensures continuity of care Maintains patient's dignity and privacy, and maintains patient confidentiality Identifies and reports philosophical, cultural, and spiritual beliefs and values Identifies individual values and wishes concerning care administers prescribed antibiotic therapy and immunizing agents as ordered, Evaluates postoperative tissue perfusion Implements thermoregulation measures, and monitors body temperature Evaluates postoperative respiratory status Evaluates postoperative cardiac status Evaluates postoperative neurological status Assesses pain control, collaborated in initiating patient-controlled analgesia and implements alternative methods of pain control Verifies allergies, administers prescribed medications and solutions, evaluates response to medications Entry 1 In PACU II 04/16/24 12:15:00 Discharge from PACU 04/16/24 13:50:00 II Outcomes Met? Yes Last Modified By: Charla Hamilton RN 04/16/24 13:57:59 Post-Care Text: The patient demonstrates knowledge of the expected response to the operative or invasive procedure The patient's care is consistent with the individualized perioperative plan of care The patient's right to privacy is maintained The patient's value system, lifestyle, ethnicity, and culture are considered, respected, and incorporated into the perioperative plan of care The patient participates in decisions affecting his or her perioperative plan of care. The patient is free from signs and symptoms of infection The patient has wound/tissue perfusion consistent with or improved from baseline levels established preoperatively The patient is at or returning to normothermia at the conclusion of the immediate postoperative period The patient's respiratory function is consistent with or improved from baseline levels established preoperatively The patient's cardiovascular status is consistent with or improved from baseline levels established preoperatively The patient's neurological status is consistent with or improved from baseline levels established preoperatively The patient demonstrates and/or reports adequate pain control throughout the perioperative period The patient received appropriate medication(s), safely administered during the perioperative period Finalized By: Charla Hamilton RN Document Signatures Signed By: Charla Hamilton RN 04/16/24 13:58 Normal [facility] Main OR Preoperative Recordo n 04-16-2024 Main OR Preoperative Record Main OR Preoperative Record PreOp Document Type FT Summary Primary Physician: Honorio Gomez MD Finalized Date/Time: 04/16/24 10:58:39 Pt. Name: JAMAICA CORRIGAN Jessica Mata/Sex: 1945 Male Med Rec #: [id number] Physician: Honorio Gomez MD Financial #: [id number] Pt. Type: A Room/Bed: [place] [address] Admit/Disch: 04/16/24 09:23:27 - Institution: Case Times PreOp FT Pre-Care Text: Verifies consent for planned procedure, identifies individual values and wishes concerning care, includes family members in perioperative teaching Entry 1 Patient Times. In Pre Surgery 04/16/24 09:25:00 Out Pre Surgery 04/16/24 10:41:00 Outcomes Met? Yes Last Modified By: Ifrah Jones 04/16/24 10:58:36 Post-Care Text: The patient participates in decisions affecting his or her perioperative plan of care Finalized By: Ifrah Jones Document Signatures Signed By: Ifrah Jones 04/16/24 10:58 Normal [facility] Operative Reporton 4 Operative Report Operative Report Indication for Surgery 78 y/o male with esophageal cancer diagnosed on egd found to have metastases to the liver on CT and MRI here today for left sided port insertion Preoperative Diagnosis LACK OF INTRAVENOUS ACCESS Postoperative Diagnosis LACK OF INTRAVENOUS ACCESS Operation left sided subclavian vein port insertion fluoscopic guidance for tunneled catheter insertion Surgeon(s) Honorio Gomez MD (Surgeon - Primary) Anesthesia General Spaulding Seth Nino DO (Internal Medicine Hospitalist) Honorio Stein (Anesthesiologist Ore Smelter) Estimated Blood Loss 10.0 mL Urine Output void prior to OR Findings left sided subclavian vein port Specimen(s) no Complications none Technique Description of procedure: After informed consent was obtained, the patient was taken to the operating room and transferred to the OR table in the supine position. After the attachment of the appropriate cardiopulmonary monitors, Venodyne boots, IV antibiotics, and a surgical pause, the patient was given general anesthesia. The location of the port was marked on the skin and this was anesthetized with 0.25% marcaine with epinepherine. The incision was made with a 15 blade and dissection was taken down to are area near the prepectoral fascia. An inferior port pocket was created The access needle was then used to access to the left subclavian vein. Once accessed was gained, the wire was thread and the location in the cardiac silhouette was confirmed with fluoroscopy. Using a modified Seldinger technique and under direct fluoroscopy, the introducer with the peal away sheath was thread over the wire. The wire and the introducer were removed and the catheter was placed into the sheath, the sheath was fractured and the port was placed. Fluoroscopy confirmed good position of the catheter, and the port was secured into the pocket with 2-0 Prolene suture after the catheter was attached to the port with its locking mechanism. The port was accessed with a Davis needle, it aspirated and flushed without difficulty. The catheter was flushed with heparinized saline. The skin incision was closed in two layers, 3-0 Vicryl interrupted and running 4-0 Monocryl. mastisol and steris strips were applied a sterile dressing was placed over this. The patient was awoken from anesthesia, and transferred to the recovery room in stable condition. Normal [facility] Comment on above: Result Comment: Elec tronically Signed By: Jason DELONG, Honorio Anna\.br\Date and Time Signed: 04/16/24 11:51 EDT Outpatient Surgery Discharge Instructionon 04-16-2024 Outpatient Surgery Discharge Instruction Outpatient Surgery Discharge Instruction [place] [id number] Patient Discharge Instructions PERSON INFORMATION Name: JAMAICA CORRIGAN Date of : 1945 Current Date: 04/16/2024 11:47:51 PHYSICIANS Admitting Physician: Honorio Gomez MD Discharge Diagnosis: JAMAICA CORRIGAN Jessica has been given the following list of follow-up instructions, prescriptions, and patient education materials: PATIENT FOLLOW-UP INFORMATION Diet: Regular Discharge Activity: Resume normal activities in 24 hours, Expect mild pain, Expect minimal amount of drainage and/or bleeding Discharge Restrictions: No driving for 24 hrs, Do not make important decisions for 24 hours, Do not drink alcoholic beverages for 24 hours Call Your Doctor For: Persistent or heavy bleeding, Temperature above 101.5 degrees, Redness, swelling, or pus at operative site, Severe pain at the operative site, Persistent vomiting Additional Instructions: ok to remove outer dressing and shower tomorrow do not remove steris strips IF UNABLE TO CONTACT YOUR PHYSICIAN AND YOU FEEL IT IS AN EMERGENCY, GO TO THE NEAREST EMERGENCY ROOM OR CALL 911 ISHEKHAR KARL J, have received the attached patient education materials/instructions and have verbalized understanding: May we do a follow up call? Yes No I was present when discharge instructions were given Patient Signature ___ Date Clinican/Nurse Signature Date Follow up: With: Address: When: follow up with medical oncology Type Location Start Finish State ONC Etoposide (FT) FT.ONCOLOGY 04/17/2024 1:00 PM 04/17/2024 3:00 PM Confirmed ONC Etoposide (FT) FT.ONCOLOGY 04/18/2024 1:00 PM 04/18/2024 3:00 PM Confirmed FM Open [facility] [place] 04/21/2024 4:15 PM 04/21/2024 4:30 PM Confirmed URO Procedure 15 min [facility] [place] 04/22/2024 8:30 AM 04/22/2024 8:45 AM Confirmed ONC Lab Port (FT) FT.ONCOLOGY 04/22/2024 1:20 PM 04/22/2024 1:35 PM Confirmed ONC Office Visit 20 (FT) FT.ONCOLOGY 04/22/2024 1:40 PM 04/22/2024 2:00 PM Confirmed ONC Supportive Care New (FT) FT.ONCOLOGY 04/23/2024 1:00 PM 04/23/2024 2:00 PM Confirmed FM Medicare Wellness Subsequent [facility] [place] 07/08/2024 8:00 AM 07/08/2024 9:00 AM Confirmed URO Office Visit [facility] [place] 12/26/2024 8:00 AM 12/26/2024 8:15 AM Confirmed Pharmacy Information: You may receive a survey from Ramy Frias asking you to rate your care experience. Your feedback is important and will help us understand what we do well and how we can improve the quality of care we provide to you, your loved ones and our community. It?s an honor to serve you. Thank you for choosing [facility] HERE ARE THE MEDICATION CHANGES THAT OCCURRED DURING YOUR HOSPITAL STAY Medications to Continue with No Changes Other Medications cholecalciferol (D3) 125 Microgram By Mouth every day. ciprofloxacin (Cipro 500 mg Tab) 1 Tablets By Mouth every day. Take 1 tablet the day before the procedure and 1 tablet after the procedure. Refills: 0. isosorbide mononitrate (isosorbide mononitrate 30 mg ER Tab) 1 Tablets By Mouth once a day (in the morning). Refills: 0. magnesium oxide 420 Milligram By Mouth once a day (at bedtime). metoprolol (Lopressor) 50 mg (take one- half tablet) By Mouth 2 times a day. ondansetron (ondansetron 8 mg Tab) 1 Tablets By Mouth every 8 hours as needed Nausea/Vomiting. Refills: 1. pantoprazole (Pantoprazole [address] Tab) 1 Tablets By Mouth 2 times a day. Refills: 0. prochlorperazine (prochlorperazine 10 mg Tab) 1 Tablets By Mouth every 6 hours as needed Nausea/Vomiting. Refills: 1. simvastatin 10 Milligram By Mouth every day., patient does not take atorva- ccm intake Lindy sucralfate (Carafate 1 gram Tab) 1 Tablets By Mouth 4 times a day. May dissolve in 10 mls of fluid. Refills: 0. PATIENT EDUCATION INFORMATION Instructions: Implanted Port Insertion, Care After The following information offers guidance on how to care for yourself after your procedure. Your health care provider may also give you more specific instructions. If you have problems or questions, contact your health care provider. What can I expect after the procedure? After the procedure, it is common to have: ? Discomfort at the port insertion site. ? Bruising on the skin over the port. This should improve over 3?4 days. Follow these instructions at home: Port care ? After your port is placed, you will get a sap hana developer's information card. The card has information about your port. Keep this card with you at all times. ? Take care of the port as told by your health care provider. Ask your he (more content not included)... Normal [facility] XR Chest Single Viewon 04-16 XR Chest Single View Exam Date/Time: 04/16/2024 11:59 EDT Reason for Exam: In PACU. Post-op Infusa Port Insertion.;Other (please specify) Report IMPRESSION: Interval placement of left port catheter with tip in the region of the mid to distal SVC. EXAMINATION: XR Chest Single View Clinical History: In PACU. Post-op Infusa Port Insertion. Comparison: CT 03/10/2024. Right clavicle radiographs 04/20/2022. RESULT: Interval placement of a left-sided port catheter with tip in the region of the mid to distal SVC. Shallow inspiration. Probable atelectasis at both lung bases. No large pleural effusion. No pneumothorax. Grossly stable cardiomediastinal silhouette. Granular meniscus calcifications especially of the left hilar region. Chronic displaced fracture of the right clavicle, grossly similar to the remote radiographs from 2021. Degenerative changes especially of the spine and shoulders. No acute osseous findings. Ordering Provider: Honorio Gomez FINAL REPORT Dictated: 04/16/2024 12:09 pm Abraham Carson MD Signed (Electronic Signature): 04/16/2024 12:09 pm Signed by: Abraham Carson MD Transcribed by: DOLORES Technologist: CLARE Technical Comments Radiation Dose: Ka,r in mGy = . DAP = . Normal [facility] CBC w/ Auto Diffon 4 Basophils/100 WBC (Bld) 0.4 % Normal 0.0-2.0 [facility] Comment on above: Performed By: #### 2 [id number] #### [facility] [address] [place] [address] Basophils/Leukocyte s Auto (Bld) [Pure # fraction] 0.0 E9/L Normal 0.0-0.2 [facility] Comment on above: Performed By: #### 2 [id number] #### [facility] [address] [place] [address] Eosinophils (Bld) [#/Vol] 0.1 E9/L Normal 0.0-0.5 [facility] Comment on above: Performed By: #### 2 [id number] #### [facility] [address] [place] [address] Eosinophils/100 WBC (Bld) 1.1 % Normal 0.0-8.0 [facility] Comment on above: Performed By: #### 2 [id number] #### [facility] [address] [place] [address] Erythrocyte distribution width (RBC) [Ratio] 14.3 % High 10.9-14.2 [facility] Comment on above: Performed By: #### 2 [id number] #### [facility] [address] [place] [address] Hematocrit (Bld) [Volume fraction] 39.3 % Normal 37.7-49.0 [facility] Comment on above: Performed By: #### 2 [id number] #### [facility] [address] [place] [address] Hemoglobin (Bld) [Mass/Vol] 13.5 g/dL Normal 13.5-17.5 [facility] Comment on above: Performed By: #### 2 [id number] #### [facility] [address] [place] [address] Lymphocytes (Bld) [#/Vol] 1.4 E9/L Normal 1.0-4.0 [facility] Comment on above: Performed By: #### 2 [id number] #### [facility] [address] [place] [address] Lymphocytes/100 WBC (Bld) 13.5 % Low 14.0-50.0 [facility] Comment on above: Performed By: #### 2 [id number] #### [facility] [address] [place] [address] MCH (RBC) [Entitic mass] 30.3 pg Normal 27.0-34.0 [facility] Comment on above: Performed By: #### 2 [id number] #### [facility] [address] [place] [address] MCHC (RBC) [Mass/Vol] 34.3 g/dL Normal 31.4-36.0 [facility] Comment on above: Performed By: #### 2 [id number] #### [facility] [address] [place] [address] MCV (RBC) [Entitic vol] 88.4 fL Normal 80.0-100.0 [facility] Comment on above: Performed By: #### 2 [id number] #### [facility] [address] [place] [address] Monocytes (Bld) [#/Vol] 0.8 E9/L Normal 0.2-1.0 [facility] Comment on above: Performed By: #### 2 [id number] #### [facility] [address] [place] [address] Neutrophils (Bld) [#/Vol] 8.1 E9/L High 2.0-7.5 [facility] Comment on above: Performed By: #### 2 [id number] #### [facility] [address] [place] [address] Neutrophils/100 WBC (Bld) 77.4 % High 36.0-75.0 [facility] Comment on above: Performed By: #### 2 [id number] #### [facility] [address] [place] [address] Platelet 264.0 E9/L Normal 150.0-500.0 [facility] Comment on above: Performed By: #### 2 [id number] #### [facility] [address] [place] [address] Platelet mean volume (Bld) [Entitic vol] 7.7 fL Normal 6.4-10.8 [facility] Comment on above: Performed By: #### 2 [id number] #### [facility] [address] [place] [address] RBC (Bld) [#/Vol] 4.4 E12/L Normal 4.3-5.9 [facility] Comment on above: Performed By: #### 2 [id number] #### [facility] [address] [place] [address] WBC corrected for nucl RBC Auto (Bld) [#/Vol] 10.5 E9/L Normal 4.0-11.0 [facility] Comment on above: Performed By: #### 2 [id number] #### [facility] [address] [place] [address] CHEMISTRYOrdered By: SYSTEM SYSTEM on 04-14-2024 Creatinine [Mass/Vol] 1.3 mg/dL Normal 0.5 - 1.3 mg/dL Remisol Chem eGFR 56 mL/min/1.73 m2 Low >=59mL/min /1.73 m2 Remisol Chem Albumin [Mass/Vol] 4.0 g/dL Normal 3.3 - 5.0 gm/dL R emisol Chem Albumin/Globulin [Mass ratio] 1.3 {ratio} Normal 1.1 - 2.2 Remisol Chem ALP [Catalytic activity/Vol] 69 [iU]/d Normal 21 - 98 Int._Unit/L Remisol Chem ALT No additional P-5'-P [Catalytic activity/Vol] 19 [iU]/d Normal 6 - 46 Int._Unit/L Remisol Chem Anion gap [Moles/Vol] 14 mmol/L Normal 6 - 16 mEq/L Remisol Chem AST [Catalytic activity/Vol] 21 [iU]/d Normal 5 - 43 Int._Unit/L Remisol Chem Bilirubin [Mass/Vol] 0.6 mg/dL Normal 0.0 - 1.1 mg/dL Remisol Chem Calcium [Mass/Vol] 9.4 mg/dL Normal 8.9 - 11. 1 mg/dL Remisol Chem Chloride [Moles/Vol] 103 mmol/L Normal 101 - 111 mmol/L Remisol Chem CO2 [Moles/Vol] 27 mmol/L Normal 21 - 31 mmol/L Remis ol Chem Creatinine [Mass/Vol] 1.4 mg/dL High 0.5 - 1.3 mg/dL Remisol Chem Globulin (S) [Mass/Vol] 3.1 g/dL Normal 1.4 - 4.0 gm/dL Remisol Chem Glucose [Mass/Vol] 112 mg/dL Normal 55 - 199 mg/dL Re misol Chem Potassium [Moles/Vol] 4.5 mmol/L Normal 3.5 - 5.3 mmol/L Remisol Chem Protein [Mass/Vol] 7.1 g/dL Normal 6.0 - 7.8 gm/dL R emisol Chem Sodium [Moles/Vol] 139 mmol/L Normal 135 - 145 mmol/L Remisol Chem TSH Qn 1.27 m[IU]/L Normal 0.34 - 5.60 mcIU/mL Remisol Chem Urea nitrogen [Mass/Vol] 24 mg/dL High 5 - 21 mg/dL Remisol Chem Urea nitrogen/Creatinine [Mass ratio] 17 mg/mg Normal 10 - 20 Remisol Chem CMPon 04-14-2024 Albumin [Mass/Vol] 4.0 g/dL Normal 3.3-5.0 [facility] Comment on above: Performed By: #### 2 [id number] #### [facility] [address] [place] [address] Albumin/Globulin (S) [Mass conc ratio] 1.3 Normal 1.1-2.2 [facility] Comment on above: Performed By: #### 2 [id number] #### [facility] [address] [place] [address] ALP [Catalytic activity/Vol] 69 Int._Unit/L Normal 21-98 [facility] Comment on above: Performed By: #### 2 [id number] #### [facility] [address] [place] [address] ALT No additional P-5'-P [Catalytic activity/Vol] 19 Int._Unit/L Normal 6-46 [facility] Comment on above: Performed By: #### 2 [id number] #### [facility] [address] [place] [address] Anion gap [Moles/Vol] 14 mmol/L Normal 6-16 [facility] Comment on above: Performed By: #### 2 [id number] #### [facility] [address] [place] [address] AST [Catalytic activity/Vol] 21 Int._Unit/L Normal 5-43 [facility] Comment on above: Performed By: #### 2 [id number] #### [facility] [address] [place] [address] Bilirubin [Mass/Vol] 0.6 mg/dL Normal 0.0-1.1 [facility] Comment on above: Performed By: #### 2 [id number] #### [facility] [address] [place] [address] Calcium [Mass/Vol] 9.4 mg/dL Normal 8.9-11.1 [facility] Comment on above: Performed By: #### 2 [id number] #### [facility] [address] [place] [address] Chloride [Moles/Vol] 103 mmol/L Normal 101-111 [facility] Comment on above: Performed By: #### 2 [id number] #### [facility] [address] [place] [address] CO2 [Moles/Vol] 27 mmol/L Normal 21-31 [facility] Comment on above: Performed By: #### 2 [id number] #### [facility] [address] [place] [address] Creatinine [Mass/Vol] 1.4 mg/dL High 0.5-1.3 [facility] Comment on above: Performed By: #### 2 [id number] #### [facility] [address] [place] [address] Globulin (S) [Mass/Vol] 3.1 g/dL Normal 1.4-4.0 [facility] Comment on above: Performed By: #### 2 [id number] #### [facility] [address] [place] [address] Glucose [Mass/Vol] 112 mg/dL Normal 55-199 [facility] Comment on above: Performed By: #### 2 [id number] #### [facility] [address] [place] [address] Potassium [Moles/Vol] 4.5 mmol/L Normal 3.5-5.3 [facility] Comment on above: Performed By: #### 2 [id number] #### [facility] [address] [place] [address] Protein [Mass/Vol] 7.1 g/dL Normal 6.0-7.8 [facility] Comment on above: Performed By: #### 2 [id number] #### [facility] [address] [place] [address] Sodium [Moles/Vol] 139 mmol/L Normal 135-145 [facility] Comment on above: Performed By: #### 2 [id number] #### [facility] [address] [place] [address] Urea nitrogen [Mass/Vol] 24 mg/dL High 5-21 [facility] Comment on above: Performed By: #### 2 [id number] #### [facility] [address] [place] [address] Urea nitrogen/Creatinine [Mass ratio] 17 No Units Normal 10-20 [facility] Comment on above: Performed By: #### 2 [id number] #### [facility] [address] [place] [address] Creatinineon 04-14-2024 Creatinine [Mass/Vol] 1.3 mg/dL Normal 0.5-1.3 [facility] Comment on above: Performed By: #### 2 [id number] #### [facility] [address] [place] [address] HEMATOLOGYOrdered By: SYSTEM SYSTEM on 04-14-2024 Basophils/100 WBC (Bld) 0.4 % Normal 0.0 - 2.0 % Remisol Heme Basophils/Leukocyte s Auto (Bld) [Pure # fraction] 0.0 E9/L Normal 0.0 - 0.2 E9/L Remisol Heme Eosinophils (Bld) [#/Vol] 0.1 E9/L Normal 0.0 - 0.5 E9/L Remisol Heme Eosinophils/100 WBC (Bld) 1.1 % Normal 0.0 - 8.0 % Remisol Heme Erythrocyte distribution width (RBC) [Ratio] 14.3 % High 10.9 - 14.2 % Remisol Heme Hematocrit (Bld) [Volume fraction] 39.3 % Normal 37.7 - 49.0 % Remisol Heme Hemoglobin (Bld) [Mass/Vol] 13.5 g/dL Normal 13.5 - 17.5 gm/dL Remisol Heme Lymphocytes (Bld) [#/Vol] 1.4 E9/L Normal 1.0 - 4.0 E9/L Remisol Heme Lymphocytes/100 WBC (Bld) 13.5 % Low 14.0 - 50.0 % Remisol Heme MCH (RBC) [Entitic mass] 30.3 pg Normal 27.0 - 34.0 pg Remisol Heme MCHC (RBC) [Mass/Vol] 34.3 g/dL Normal 31.4 - 36.0 gm/dL Remisol Heme MCV (RBC) [Entitic vol] 88.4 fL Normal 80.0 - 100.0 fL Remisol Heme Monocytes (Bld) [#/Vol] 0.8 E9/L Normal 0.2 - 1.0 E9/L Remisol Heme Monocytes/100 WBC (Bld) 7.6 % Normal 4.0 - 14.0 % Remisol Heme Neutrophils (Bld) [#/Vol] 8.1 E9/L High 2.0 - 7.5 E9/L Remisol Heme Neutrophils/100 WBC (Bld) 77.4 % High 36.0 - 75.0 % Remisol Heme Platelet 264.0 E9/L Normal 150.0 - 500.0 E9/L Remisol Heme Platelet mean volume (Bld) [Entitic vol] 7.7 fL Normal 6.4 - 10.8 fL Remisol Heme RBC (Bld) [#/Vol] 4.4 E12/L Normal 4.3 - 5.9 E12/L Re misol Heme WBC corrected for nucl RBC Auto (Bld) [#/Vol] 10.5 E9/L Normal 4.0 - 11.0 E9/L Remisol Heme Reference Laboratory Testing Ordered By: Toyin Yu on 04-14-2024 Test Code 392797 1 Invalid Interpretation Code [facility] Test Name Chromogranin A Invalid Interpretation Code [facility] With T4fr Reflexon 04-14 TSH Qn 1.27 m[IU]/L Normal 0.34-5.60 [facility] Comment on above: Performed By: #### 1 [id number] #### [facility] [address] [place] [address] eGFRon 04-14-2024 eGFR 56 mL/min/1.73 m2 Low >=59 [facility] Comment on above: Order Comment: Order added by Discern Expert. Performed By: #### 1 [id number] #### [facility] [address] [place] [address] 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 Bradycardia CAD in [place] artery Chronic kidney disease, stage 3a Closed displaced fracture of shaft of right clavicle COVID Dyspnea on exertion Hard of hearing 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 HLD (hyperlipidemia) Hospital discharge follow-up Hx of cardiac catheterization Malignant neoplasm of lower third of esophagus Mild diastolic dysfunction Mild persistent asthma without complication Primary hypertension Renal stone TIA on medication Ureteral stone with hydronephrosis Vitamin D deficiency Historical No qualifying data Procedure/Surgical History Esophagogastroduodenoscop y (03/09/2024), Cystoscopic laser lithotripsy of ureteric calculus (05/24/2023), ESWL of kidney (05/03/2023), Cystoscopic insertion of ureteric stent (04/07/2023), Placement of stent in cardiac conduit (11/2017), Colonoscopy (2017), Carpal tunnel syndrome of left wrist, Carpal tunnel syndrome of right wrist, Kidney stone. Home Medications Carafate 1 gram Tab, 1 gm= 1 tab(s), Oral, QID D3, 125 mcg, Oral, Daily isosorbide mononitrate 30 mg ER Tab, 30 mg= 1 tab(s), Oral, qAM Lopressor, 50 mg (take one- half tablet), Oral, BID magnesium oxide, 420 mg, Oral, Once a day (at bedtime) Pantoprazole [address] Tab, 40 mg= 1 tab(s), Oral, BID simvastatin, 10 mg, Oral, Daily Allergies No Known Medication Allergies Social History Alcohol - Denies Alcohol Use, 01/17/2022 Substance Abuse - Denies Substance Abuse, 01/17/2022 Tobacco Never (less than 100 in lifetime) Tobacco Use:. Never Smokeless Tobacco Use:. Household tobacco concerns: No., 03/24/2024 Family History Diabetes mellitus type 2: Father. Screenings and Assessments 03/11/24 10:07:00 Result Name Value Comment Phone Call Monitoring Consent Agreed to continue call Phone Verification Patient Information Full name, street address and date of verified CM Program Enrollment Provides verbal consent for enrollment Goals and Interventions Care Plan Goal: Complications of Hypertension Avoided Start Date: 2023 Target: - - Status: Not met Barriers: - - Comments: - - Intervention Frequency Status Photogrammetric Technician Review educational material - - Done - - Keep follow up appointments with provider and complete testing as directed - - Progressing - - Take Medications as Prescribed - - Progressing - - Monitor and keep BP log; at least 3 days per week - - Not done - - Follow low sodium diet - - Progressing - - Goal: Complications of Kidney Disease Avoided Start Date: 2023 Target: - - Status: Not met Barriers: - - Comments: - - Intervention Frequency Status Photogrammetric Technician Review educational material - - Done - - Keep follow up appointments with provider as directed - - Progressing - - Complete testing/ blood work as directed per provider - - Progressing - - Avoid high sodium, potassium foods such as; bananas, avacados, canned soups, pickled foods, etc... - - Progressing - - Goal: Complications of Hyperlipidemia avoided Start Date: 2023 Target: - - Status: Not met Barriers: - - Comments: - - Intervention Frequency Status Photogrammetric Technician Review educational material - - Done - - Keep follow up appointments as scheduled - - Progressing - - Take Medications as Prescribed - - Progressing - - Complete bloodwork as directed by provider - - Progressing - - Maintain active healthy lifestyle and avoid foods high in saturated fats - - Progressing - - Goal: CAD complications avoided Start Date: 2023 Target: - - Status: Not met Barriers: - - Comments: - - Intervention Frequency Status Photogrammetric Technician Review educational material - - Done - - Keep follow up appointments as scheduled and complete testing, bloodwork as directed by provider - - Progressing - - Maintain an active healthy lifestyle - - Progressing - - Take medications as prescribed - - Progressing - - Progress Note TCM#4- Spoke with patient for final TCM call. Patient states he is doing 'pretty decent.' Notes He has upset stomach once in awhile and a achy tooth. He adds the tooth is getting better, he will call dentist as needed. Patient denies any further bleeding episodes. Denies any pain. Denies any difficulty swallowing fo (more content not included)... Normal [facility] MRI Abdomen w/ + w/o [place] ton 04-01-2024 MRI Abdomen w/ + w/o Contrast Exam Date/Time: 03/31/2024 09:36 EDT Reason for Exam: liver lesion;Other (please specify) Report IMPRESSION: APPARENTLY ENLARGING AND DEVELOPING HEPATIC METASTATIC LESIONS FROM 03/10/2024. EXAM: MRI Abdomen w/ + w/o Contrast DATE: 03/31/2024 8:19 AM CLINICAL HISTORY: liver lesion. COMPARISON: Chest, abdomen and pelvis CTs 03/10/2024 and outside PET/CT 03/26/2024. TECHNIQUE: Multiplanar MR imaging of the abdomen was performed before and after intravenous administration of approximately 10 mL of Vueway gadolinium contrast. FINDINGS: Motion artifact limits some sequences. Several lesions predominantly within the left lobe of the liver are most consistent with metastatic disease. The largest within the posterior aspect of the inferomedial segment of the left lower (IVb) measures approximately 3.8 x 2.7 x 2.5 cm. A distal esophageal malignancy and mildly prominent lymph nodes adjacent to the gastric cardia again noted. There is no ascites, or other significant changes identified. Ordering Provider: Mallory Henry FINAL REPORT Dictated: 04/01/2024 3:14 pm Ortiz Romo MD Signed (Electronic Signature): 04/01/2024 3:14 pm Signed by: Ortiz Romo MD Transcribed by: DOLORES Technologist: AMELIA Technical Comments Vueway Contrast amount in ml's: 10 Normal [facility] Capillary blood glucose ron urement by glucometer (mass/volume)Ordered By: Mallory Henry on 03-26-2024 Glucose [Mass/Vol] 112 mg/dL Normal [facility] Comment on above: Random Glucose Refer ence Range is dependent on time and content of last meal. Glucose of more than 200 mg/dL in a nonstressed, ambulatory subject supports the diagnosis of Diabetes Mellitus. Result Comment: [facility] Glucose Reference Range is dependent on time and content of last meal. Glucose of more than 200 mg/dL in a nonstressed, ambulatory subject supports the diagnosis of Diabetes Mellitus. PERFORMED BY: [place] [address] PATHOLOGIST CLINICAL STAFF ANESTHESIOLOGIST ELIAS AVILA M.D. Performed By: #### G LULILIAN #### Point of Care testing , PET tumor init tx strat sb-m ton 03-26-2024 PET tumor init tx strat sb-mt [facility] [address] [place], [place] [id number] Nuclear Medicine Report Signed Patient: [place] Corrigan MR#: [id number] 9 : 1945 Acct:[id number] Age/Sex: 78 / M ADM Date: 03/26/24 Loc: Room: Type: [facility] Attending Dr: Mallory Henry - [facility] [place] Copies to: MD Mallory Grace MD Ordering Provider: Mallory Henry MD Date of Service: 03/26/24 PET/PET tumor init tx strat sb-mt: Esophageal CA PET/CT WITH FUSION CLINICAL DATA: Initial treatment planning in patient with metastatic distal esophageal cancer COMPARISON: Outside CT chest, abdomen pelvis 03/10/2024 Following the intravenous administration of 14.13 mCi of FDG, SPECT imaging in 3 planes was performed from the level the orbits through the groin. Patient's blood glucose level at the time of injection was 113 mg/dL. Oral unenhanced CT was also performed for anatomic localization. The PET and CT images were fused. This CT exam was performed using one or more following dose reduction techniques: Automated exposure control, adjustment of the mA and/or kV according to patient size, or use of iterative reconstruction technique. CHEST: There is physiologic activity at the oral cavity and vocal cords. No enlarged or hypermetabolic cervical lymph nodes are visualized. CHEST: No pulmonary nodularity or hypermetabolic lung lesions are identified. Linear scarring or atelectasis is again visualized the left lower lung. No enlarged or hypermetabolic mediastinal, hilar or axillary lymph nodes are seen. There are left hilar and AP window granulomas. There is a segment of distal esophagus with wall thickening approximately 5.5 cm in length where there is increased FDG uptake with maximum SUV of 7.4. This is presumed to correlate with patient's recently diagnosed malignancy. There are some areas of patchy, slight increased osseous FDG uptake involving some of the thoracic vertebra. This is greatest at the posterior aspect of the T2 vertebral body toward the left with SUV of 4.7. On CT there is a subtle sclerotic area at that site. There is prominent degenerative change at the shoulders as well as degenerative change involving the thoracic vertebra. There are hypermetabolic hepatic lesions involving the left lobe and near the gallbladder. There is standard uptake values approaching 7. Although there is no significant nodularity, there is slight increased uptake at both adrenal glands with SUV just below 3 on the left and just above 3 on the right. There are small gastrohepatic ligament and precaval lymph nodes with slight increase FDG uptake with SUV just over 2. No other enlarged or hypermetabolic abdominal or pelvic lymph nodes are visualized. There are additional subtle areas of patchy increased osseous uptake involving the spine and sacrum. There is symmetric mild increased FDG uptake involving both testes (SUV up to 3.6), uncertain etiology and significance. FDG uptake at the prostate is mildly heterogeneous with at least one area posteriorly and to the left midline which is more focal (SUV 3.9). There are splenic granulomas. Distal colonic diverticula are seen. PET/PET tumor init tx strat sb-mt IMPRESSION: HYPERMETABOLIC DISTAL ESOPHAGEAL LESION COMPATIBLE WITH KNOWN NEOPLASM. METASTATIC HEPATIC LESIONS. POSSIBLE METASTASES TO THE ADRENAL GLANDS AND BONE. SMALL RETROPERITONEAL LYMPH NODES AT THE UPPER ABDOMEN WITH SUBTHRESHOLD INCREASED FDG UPTAKE. INDETERMINATE FINDINGS INVOLVING BOTH TESTES AND THE PROSTATE. CLINICAL CORRELATION IS SUGGESTED. Impression dictated by: Lori Jones M.D.03/26/2024 1:06 PM Dictation Location: [place] [address] Transcribed By: SUSANNE 03/26/24 130 Dictated By: Lori Jones MD 03/26/24 1238 Signed By: 03/26/24 1306 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 Bradycardia CAD in [place] artery Chronic kidney disease, stage 3a Closed displaced fracture of shaft of right clavicle COVID Dyspnea on exertion Hard of hearing 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 HLD (hyperlipidemia) Hospital discharge follow-up Hx of cardiac catheterization Malignant neoplasm of lower third of esophagus Mild diastolic dysfunction Mild persistent asthma without complication Primary hypertension Renal stone TIA on medication Ureteral stone with hydronephrosis Vitamin D deficiency Historical No qualifying data Procedure/Surgical History Esophagogastroduodenoscop y (03/09/2024), Cystoscopic laser lithotripsy of ureteric calculus (05/24/2023), ESWL of kidney (05/03/2023), Cystoscopic insertion of ureteric stent (04/07/2023), Placement of stent in cardiac conduit (11/2017), Colonoscopy (2017), Carpal tunnel syndrome of left wrist, Carpal tunnel syndrome of right wrist, Kidney stone. Home Medications Carafate 1 gram Tab, 1 gm= 1 tab(s), Oral, QID D3, 125 mcg, Oral, Daily isosorbide mononitrate 30 mg ER Tab, 30 mg= 1 tab(s), Oral, qAM Lopressor, 50 mg (take one- half tablet), Oral, BID magnesium oxide, 420 mg, Oral, Once a day (at bedtime) Pantoprazole [address] Tab, 40 mg= 1 tab(s), Oral, BID simvastatin, 10 mg, Oral, Daily Allergies No Known Medication Allergies Social History Alcohol - Denies Alcohol Use, 01/17/2022 Substance Abuse - Denies Substance Abuse, 01/17/2022 Tobacco Never (less than 100 in lifetime) Tobacco Use:. Never Smokeless Tobacco Use:. Household tobacco concerns: No., 03/24/2024 Family History Diabetes mellitus type 2: Father. Screenings and Assessments 03/11/24 10:07:00 Result Name Value Comment Phone Call Monitoring Consent Agreed to continue call Phone Verification Patient Information Full name, street address and date of verified CM Program Enrollment Provides verbal consent for enrollment Goals and Interventions Care Plan Goal: Complications of Hypertension Avoided Start Date: 2023 Target: - - Status: Not met Barriers: - - Comments: - - Intervention Frequency Status Photogrammetric Technician Review educational material - - Done - - Keep follow up appointments with provider and complete testing as directed - - Progressing - - Take Medications as Prescribed - - Progressing - - Monitor and keep BP log; at least 3 days per week - - Not done - - Follow low sodium diet - - Progressing - - Goal: Complications of Kidney Disease Avoided Start Date: 2023 Target: - - Status: Not met Barriers: - - Comments: - - Intervention Frequency Status Photogrammetric Technician Review educational material - - Done - - Keep follow up appointments with provider as directed - - Progressing - - Complete testing/ blood work as directed per provider - - Progressing - - Avoid high sodium, potassium foods such as; bananas, avacados, canned soups, pickled foods, etc... - - Progressing - - Goal: Complications of Hyperlipidemia avoided Start Date: 2023 Target: - - Status: Not met Barriers: - - Comments: - - Intervention Frequency Status Photogrammetric Technician Review educational material - - Done - - Keep follow up appointments as scheduled - - Progressing - - Take Medications as Prescribed - - Progressing - - Complete bloodwork as directed by provider - - Progressing - - Maintain active healthy lifestyle and avoid foods high in saturated fats - - Progressing - - Goal: CAD complications avoided Start Date: 2023 Target: - - Status: Not met Barriers: - - Comments: - - Intervention Frequency Status Photogrammetric Technician Review educational material - - Done - - Keep follow up appointments as scheduled and complete testing, bloodwork as directed by provider - - Progressing - - Maintain an active healthy lifestyle - - Progressing - - Take medications as prescribed - - Progressing - - Progress Note TCM #3 - Spoke with Vy who is currently at work but states their son took patient [place] [facility] [place] saw Oncology on 03/[place]. Vy states everything is fast going. He is planned to have a port placed on 04/16, will start chemo in 3 weeks, pre-op on 04/04, and will need a biopsy of hi (more content not included)... Normal [facility] Ambulatory Visit Summaryon 0 03-24-2024 Ambulatory Visit Summary Ambulatory Visit Summary JAMAICA CORRIGAN :1945 Visit Date:03/24/2024 Ambulatory Visit Instructions Your Diagnosis Malignant neoplasm of lower third of esophagus These Are Your Goals Complications of Hypertension Avoided - Not met Interventions: Follow low sodium diet - Progressing Keep follow up appointments with provider and complete testing as directed - Progressing Monitor and keep BP log; at least 3 days per week - Not done Review educational material - Done Take Medications as Prescribed - Progressing Complications of Kidney Disease Avoided - Not met Interventions: Avoid high sodium, potassium foods such as; bananas, avacados, canned soups, pickled foods, etc... - Progressing Complete testing/ blood work as directed per provider - Progressing Keep follow up appointments with provider as directed - Progressing Review educational material Complications of Hyperlipidemia avoided - Not met Interventions: Complete bloodwork as directed by provider - Progressing Keep follow up appointments as scheduled - Progressing Maintain active healthy lifestyle and avoid foods high in saturated fats - Progressing Review educational material - Done Take Medications as Prescribed - Progressing CAD complications avoided - Not met Interventions: Keep follow up appointments as scheduled and complete testing, bloodwork as directed by provider - Progressing Maintain an active healthy lifestyle - Progressing Review educational material - Done Take medications as prescribed - Progressing Your Care Team Attending Physician - Elaine DELONG, Mallory Michaels Primary Care Physician - Betina Sampson MD Referring Physician - Honorio Gomez MD This Is Your Medications List cholecalciferol (D3) isosorbide mononitrate (isosorbide mononitrate 30 mg ER Tab) magnesium oxide metoprolol (Lopressor) pantoprazole (Pantoprazole [address] Tab) simvastatin sucralfate (Carafate 1 gram Tab) Procedures Performed Esophagogastroduodenoscop y (03/09/2024), Cystoscopic laser lithotripsy of ureteric calculus (05/24/2023), ESWL of kidney (05/03/2023), Cystoscopic insertion of ureteric stent (04/07/2023), Placement of stent in cardiac conduit (11/2017), Colonoscopy (2018), Carpal tunnel syndrome of left wrist, Carpal tunnel syndrome of right wrist, Kidney stone. Discharge Vitals Temperature (Oral) 36.6 ?C Heart Rate (Peripheral) 58 Respiratory Rate 18 Blood Pressure 113/74 Height 167 cm Weight 92.5 kg BMI 33.17 What to do next Scheduled Follow-Up Appointments Sunday 4:15 PM EDT With: Adrián DELONG, Betina Anna Where: [facility] Invalid Interpretation Code [address] [place] [address]- \.br\ Sunday 8:00 AM EDT \.br\ With: PAPA DELONG, Zachary Meléndez\.br\ Where: [facility] ED Pat Eduon 03-24-2024 ED Pat Edu ED Pat [facility] Choking, Adult Choking occurs when a food or object gets stuck in the throat or windpipe (trachea) and blocks the airway. If the airway is partly blocked, coughing will usually cause the food or object to come out. If the airway is completely blocked, immediate action is needed to make it come out. Obstruction of the airway can lead to respiratory failure and even if untreated. The kind of treatment you offer depends on the severity of the choking. A person has a complete airway blockage if he or she: ? Is holding his or her neck with both hands. This is considered a universal sign of choking. ? Is unable to breathe. ? Is making soft or high-pitched sounds while breathing. ? Is unable to cough or is coughing weakly, ineffectively, or silently. ? Is unable to cry, speak, or make sounds. ? Is turning blue or aleman. For partial airway blockage If a person has a partial airway blockage and he or she is coughing and is able to speak: ? Do not interfere. Allow coughing to clear the airway. ? Do not let him or her try to drink until the food or object comes out. ? Stay with the person until the food or object comes out. Watch for signs of choking (complete airway blockage). If the person shows signs of complete airway blockage, you should take action to help the person. For complete airway blockage If a person has a complete airway blockage, his or her life is in danger. A complete airway blockage causes breathing to stop. This is a medical emergency that requires fast, appropriate action by anyone who is available. Perform the Heimlich maneuver to save a person who is choking. The Heimlich maneuver, also called abdominal thrusts, uses pressure to force air from the abdomen into the throat to move the blockage. CPR for an unconscious person Do the following if the choking person is not breathing and either collapses or is found on the ground: 1. Shout for help. ? If someone responds, tell that person to call local emergency services (911 in [place] and look for an automated external defibrillator (AED). ? If no one responds, begin 2 minutes of CPR. 2. Make sure the person is lying on a firm, flat surface, facing up. Begin CPR, starting with 30 chest compressions and 2 breaths. Every time you open the airway to give rescue breaths, open the person's mouth. If you can see the food or object and it can be easily pulled out, remove it with your fingers. Do not try to remove the food or object if you cannot see it so you do not push it farther into the airway. 3. After 5 cycles or 2 minutes of CPR, call local emergency services (911 in [place] if a call has not already been made. 4. Continue CPR until the person starts breathing or until help arrives. If you are choking: 1. Call local emergency services (911 in [place] Do not worry about communicating what is happening. Do not hang up the phone. Someone may be sent to help you anyway. 2. Perform the Heimlich maneuver on yourself. To do this, hold a fist against your abdomen and bend over a hard surface, such as a chair. Forcefully push your fist in and up until the food or object comes out. Prevention ? Chew food thoroughly. ? Know that older adults are at an increased risk of choking. They should chew smaller bites and cut their food into smaller portions. ? Avoid talking or laughing while you are chewing and swallowing. To be prepared if choking occurs, take a certified first-aid course to learn how to correctly perform the Heimlich maneuver. Contact a health care provider if: ? You have trouble swallowing food. ? You continue to have drooling after choking. ? You have persistent chest pain after choking. Get help right away if: ? You have problems breathing after choking stops. ? You are confused, persistently drowsy, or have lost consciousness at any point. ? You were given CPR. These symptoms may represent a serious problem that is an emergency. Do not wait to see if the symptoms will go away. Get medical help right away. Call your local emergency services (911 in the [place] Do not drive yourself to the hospital. Summary ? Choking occurs when a food or object gets stuck in the throat (trachea) and blocks the airway. This prevents breathing and can lead to respiratory arrest and even if untreated. ? If a person has a partial airway blockage and is able to talk and cough, do not interfere and do not allow the person to drink until the food or object comes out. ? If a person has a complete airway blockage, perform the Heimlich maneuver. Call local emergency services and take the person to a health care provider afterward especially if CPR was done. ? If the person is unconscious and not breathing, call local emergency services and perform CPR until the person breathes normally or until help arrives. This information is not intended to replace advice given to you by you (more content not included)... Normal [facility] ED Pat Edu ED [facility]giving Choking, Adult Choking occurs when a food or object gets stuck in the throat or windpipe (trachea) and blocks the airway. If the airway is partly blocked, coughing will usually cause the food or object to come out. If the airway is completely blocked, immediate action is needed to make it come out. Obstruction of the airway can lead to respiratory failure and even if untreated. The kind of treatment you offer depends on the severity of the choking. A person has a complete airway blockage if he or she: ? Is holding his or her neck with both hands. This is considered a universal sign of choking. ? Is unable to breathe. ? Is making soft or high-pitched sounds while breathing. ? Is unable to cough or is coughing weakly, ineffectively, or silently. ? Is unable to cry, speak, or make sounds. ? Is turning blue or aleman. For partial airway blockage If a person has a partial airway blockage and he or she is coughing and is able to speak: ? Do not interfere. Allow coughing to clear the airway. ? Do not let him or her try to drink until the food or object comes out. ? Stay with the person until the food or object comes out. Watch for signs of choking (complete airway blockage). If the person shows signs of complete airway blockage, you should take action to help the person. For complete airway blockage If a person has a complete airway blockage, his or her life is in danger. A complete airway blockage causes breathing to stop. This is a medical emergency that requires fast, appropriate action by anyone who is available. Perform the Heimlich maneuver to save a person who is choking. The Heimlich maneuver, also called abdominal thrusts, uses pressure to force air from the abdomen into the throat to move the blockage. CPR for an unconscious person Do the following if the choking person is not breathing and either collapses or is found on the ground: 1. Shout for help. ? If someone responds, tell that person to call local emergency services (352 in [place] and look for an automated external defibrillator (AED). ? If no one responds, begin 2 minutes of CPR. 2. Make sure the person is lying on a firm, flat surface, facing up. Begin CPR, starting with 30 chest compressions and 2 breaths. Every time you open the airway to give rescue breaths, open the person's mouth. If you can see the food or object and it can be easily pulled out, remove it with your fingers. Do not try to remove the food or object if you cannot see it so you do not push it farther into the airway. 3. After 5 cycles or 2 minutes of CPR, call local emergency services (329 in [place] if a call has not already been made. 4. Continue CPR until the person starts breathing or until help arrives. If you are choking: 1. Call local emergency services (861 in [place] Do not worry about communicating what is happening. Do not hang up the phone. Someone may be sent to help you anyway. 2. Perform the Heimlich maneuver on yourself. To do this, hold a fist against your abdomen and bend over a hard surface, such as a chair. Forcefully push your fist in and up until the food or object comes out. Prevention ? Chew food thoroughly. ? Know that older adults are at an increased risk of choking. They should chew smaller bites and cut their food into smaller portions. ? Avoid talking or laughing while you are chewing and swallowing. To be prepared if choking occurs, take a certified first-aid course to learn how to correctly perform the Heimlich maneuver. Contact a health care provider if: ? You have trouble swallowing food. ? You continue to have drooling after choking. ? You have persistent chest pain after choking. Get help right away if: ? You have problems breathing after choking stops. ? You are confused, persistently drowsy, or have lost consciousness at any point. ? You were given CPR. These symptoms may represent a serious problem that is an emergency. Do not wait to see if the symptoms will go away. Get medical help right away. Call your local emergency services (911 in the [place] Do not drive yourself to the hospital. Summary ? Choking occurs when a food or object gets stuck in the throat (trachea) and blocks the airway. This prevents breathing and can lead to respiratory arrest and even if untreated. ? If a person has a partial airway blockage and is able to talk and cough, do not interfere and do not allow the person to drink until the food or object comes out. ? If a person has a complete airway blockage, perform the Heimlich maneuver. Call local emergency services and take the person to a health care provider afterward especially if CPR was done. ? If the person is unconscious and not breathing, call local emergency services and perform CPR until the person breathes normally or until help arrives. This information is not intended to replace advice given to you by you (more content not included)... Normal [facility] ED Pat Edu ED Pat Edu Infectious Disease Implanted Port Insertion Implanted port insertion is a procedure to put in a port and catheter. The port is a device with an injectable disc that can be accessed by your health care provider. The port is connected to a vein in the chest or neck by a small, thin tube (catheter). There are different types of ports. The implanted port may be used as a long-term IV access for: ? Medicines, such as chemotherapy. ? Fluids. ? Liquid nutrition, such as total parenteral nutrition (TPN). When you have a port, your health care provider can choose to use the port instead of veins in your arms for these procedures. Tell a health care provider about: ? Any allergies you have. ? All medicines you are taking, especially blood thinners, as well as any vitamins, herbs, eye drops, creams, ckob-zpf-zrrlqur medicines, and steroids. ? Any problems you or family members have had with anesthetic medicines. ? Any bleeding problems you have. ? Any surgeries you have had. ? Any medical conditions you have or have had, including diabetes or kidney problems. ? Whether you are or may be . What are the risks? Generally, this is a safe procedure. However, problems may occur, including: ? Allergic reactions to medicines or dyes. ? Damage to other structures or organs. ? Infection. ? Damage to the blood vessel, bruising, or bleeding at the puncture site. ? Blood clot. ? Breakdown of the skin over the port. ? A collection of air in the chest that can cause one of the lungs to collapse (pneumothorax). This is rare. What happens before the procedure? When to stop eating and drinking Follow instructions from your health care provider about what you may eat and drink before your procedure. These may include: ? 8 hours before your procedure ? Stop eating most foods. Do not eat meat, fried foods, or fatty foods. ? Eat only light foods, such as toast or crackers. ? All liquids are okay except energy drinks and alcohol. ? 6 hours before your procedure ? Stop eating. ? Drink only clear liquids, such as water, clear fruit juice, black coffee, plain tea, and sports drinks. ? Do not drink energy drinks or alcohol. ? 2 hours before your procedure ? Stop drinking all liquids. ? You may be allowed to take medicines with small sips of water. If you do not follow your health care provider's instructions, your procedure may be delayed or canceled. Medicines Ask your health care provider about: ? Changing or stopping your regular medicines. This is especially important if you are taking diabetes medicines or blood thinners. ? Taking medicines such as aspirin and ibuprofen. These medicines can thin your blood. Do not take these medicines unless your health care provider tells you to take them. ? Taking ymnq-wpm-wcmjqko medicines, vitamins, herbs, and supplements. General instructions ? If you will be going home right after the procedure, plan to have a responsible adult: ? Take you home from the hospital or clinic. You will not be allowed to drive. ? Care for you for the time you are told. ? You may have blood tests. ? Do not use any products that contain nicotine or tobacco for at least 4 weeks before the procedure. These products include cigarettes, chewing tobacco, and vaping devices, such as e-cigarettes. If you need help quitting, ask your health care provider. ? Ask your health care provider what steps will be taken to help prevent infection. These may include: ? Removing hair at the surgery site. ? Washing skin with a germ-killing soap. ? Taking antibiotic medicine. What happens during the procedure? ? An IV will be inserted into one of your veins. ? You will be given one or more of the following: ? A medicine to help you relax (sedative). ? A medicine to numb the area (local anesthetic). ? Two small incisions will be made to insert the port. ? One smaller incision will be made in your neck to get access to the vein where the catheter will lie. ? The other incision will be made in the upper chest. This is where the port will lie. ? The procedure may be done using continuous X-ray (fluoroscopy) or other imaging tools for guidance. ? The port and catheter will be placed. There may be a small, raised area where the port is placed. ? The port will be flushed with a saline solution, which is made of salt and water, and blood will be drawn to make sure that the port is working correctly. ? The incisions will be closed. ? Bandages (dressings) may be placed over the incisions. The procedure may vary among health care providers and hospitals. What happens after the procedure? ? Your blood pressure, heart rate, breathing rate, and blood oxygen level will be monitored until you leave the hospital or clinic. ? If you were given a sedative during the procedure, it can affect you for several hours. Do not dr (more content not included)... Normal [facility] Oncology Noteon 03-24-2024 Oncology Note Oncology Note Patient here for clinic visit, patient's in room also. Patient is going to be on vacation from 04/07 - 04/11/2024. Discussed distress thermometer of zero, no resources needed at this time. Distress thermometer emailed to social service coordinator. Patient's , concerned about cost of chemotherapy - discussed Community [facility] with patient's . Patient's will call to try to get patient on [facility] through [place]. but is okay with using her Medicare RR and supplement for testing at [facility]. Patient was provided with my contact information. Normal [facility] Comment on above: Result Comment: Elec tronically Signed By: Jose SPAULDING, Sana Clarke\.br\Date and Time Signed: 03/24/24 11:[address] 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 Bradycardia CAD in [place] artery Chronic kidney disease, stage 3a Closed displaced fracture of shaft of right clavicle COVID Dyspnea on exertion Hard of hearing 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 HLD (hyperlipidemia) Hospital discharge follow-up Hx of cardiac catheterization Malignant neoplasm of lower third of esophagus Mild diastolic dysfunction Mild persistent asthma without complication Primary hypertension Renal stone TIA on medication Ureteral stone with hydronephrosis Vitamin D deficiency Historical No qualifying data Procedure/Surgical History Esophagogastroduodenoscop y (03/09/2024), Cystoscopic laser lithotripsy of ureteric calculus (05/24/2023), ESWL of kidney (05/03/2023), Cystoscopic insertion of ureteric stent (04/07/2023), Placement of stent in cardiac conduit (11/2017), Colonoscopy (2017), Carpal tunnel syndrome of left wrist, Carpal tunnel syndrome of right wrist, Kidney stone. Home Medications Carafate 1 gram Tab, 1 gm= 1 tab(s), Oral, QID D3, 125 mcg, Oral, Daily isosorbide mononitrate 30 mg ER Tab, 30 mg= 1 tab(s), Oral, qAM Lopressor, 50 mg (take one- half tablet), Oral, BID magnesium oxide, 420 mg, Oral, Once a day (at bedtime) Pantoprazole [address] Tab, 40 mg= 1 tab(s), Oral, BID simvastatin, 10 mg, Oral, Daily Allergies No Known Medication Allergies Social History Alcohol - Denies Alcohol Use, 01/17/2022 Substance Abuse - Denies Substance Abuse, 01/17/2022 Tobacco Never (less than 100 in lifetime) Tobacco Use:. Never Smokeless Tobacco Use:. Household tobacco concerns: No., 03/17/2024 Family History Diabetes mellitus type 2: Father. Screenings and Assessments 03/11/24 10:07:00 Result Name Value Comment Phone Call Monitoring Consent Agreed to continue call Phone Verification Patient Information Full name, street address and date of verified CM Program Enrollment Provides verbal consent for enrollment Goals and Interventions Care Plan Goal: Complications of Hypertension Avoided Start Date: 2023 Target: - - Status: Not met Barriers: - - Comments: - - Intervention Frequency Status Photogrammetric Technician Review educational material - - Done - - Keep follow up appointments with provider and complete testing as directed - - Progressing - - Take Medications as Prescribed - - Progressing - - Monitor and keep BP log; at least 3 days per week - - Not done - - Follow low sodium diet - - Progressing - - Goal: Complications of Kidney Disease Avoided Start Date: 2023 Target: - - Status: Not met Barriers: - - Comments: - - Intervention Frequency Status Photogrammetric Technician Review educational material - - Done - - Keep follow up appointments with provider as directed - - Progressing - - Complete testing/ blood work as directed per provider - - Progressing - - Avoid high sodium, potassium foods such as; bananas, avacados, canned soups, pickled foods, etc... - - Progressing - - Goal: Complications of Hyperlipidemia avoided Start Date: 2023 Target: - - Status: Not met Barriers: - - Comments: - - Intervention Frequency Status Photogrammetric Technician Review educational material - - Done - - Keep follow up appointments as scheduled - - Progressing - - Take Medications as Prescribed - - Progressing - - Complete bloodwork as directed by provider - - Progressing - - Maintain active healthy lifestyle and avoid foods high in saturated fats - - Progressing - - Goal: CAD complications avoided Start Date: 2023 Target: - - Status: Not met Barriers: - - Comments: - - Intervention Frequency Status Photogrammetric Technician Review educational material - - Done - - Keep follow up appointments as scheduled and complete testing, bloodwork as directed by provider - - Progressing - - Maintain an active healthy lifestyle - - Progressing - - Take medications as prescribed - - Progressing - - Progress Note TCM#2- Spoke with patient, states he is doing 'pretty good.' Patient does note his stomach is a 'bit upset.' Denies any other complaints. Denies any further bleeding episodes. Patient denies diarrhea or constipation, noting bowel movements are normal. Patient denies any difficulty swallowing his food or pills. He is (more content not included)... Normal [facility] 07 Addendum Reporton 024 07 Addendum Report [facility] [address] [place] [address]- Surgical Pathology Report Collected Date/Time: 03/09/2024 08:12 EDT Pathologist: Candelario Israel MD Received Date/Time: 03/10/2024 07:59 EDT Jason DELONG, Honorio Gomez MD, Honorio Anna 07 Addendum Report - 03/18/2024 14:16 EDT - Auth (Verified) Addendum Upon immunohistochemical staining on part A the tumor cells are: - AE1/AE3: Positive - Synaptophysin: Positive - CD56: Focally positive - Chromogranin-A: Negative - CK5/6: Negative - CK7: Negative - CK20: Negative - CDX2: Negative - p63: Negative - p40: Negative - CD45: Negative - Ki-67: Positive in more than 80% of tumor cells 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 Appropriate positive controls reviewed. Clinicopathological correlation is recommended. (Electronic Signature) Shahram. Freida MD 03/18/2024 14:16 Addendum Reason Immunohistochemical staining report 07 Surgical Pathology Report - 03/11/2024 14:44 EDT - Auth (Verified) Final Diagnosis A. 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 - Pending immunohistochemical stains (CD45, CDX-2, CK7, CK20, CK5/6, P40, Chromogranin, Synaptophysin, Ki67). B. STOMACH, ANTRUM, BIOPSY: - Antral- type gastric mucosa with mild chronic inactive gastritis. - Pending Helicobacter pylori immunohistochemical stain. (Electronic Signature) Yan. Lindy MD 03/11/2024 14:44 Diagnosis Comment This case was discussed with Dr. Gomez on 03/11/24 at 2:40 pm. Clinical Information Hematemesis Pre-Op Diagnosis: Hematemesis Procedure: EGD Post-Op Diagnosis: An esophageal mass was identified at the gastroesophageal junction. The size of the mass was large. The mass was fungating. Multiple biopsies were collected. Esophageal mass: Large fungating mass taking 50% of the circumference of the esophagus at the GE junction ranging from 35 to 41 cm from the teeth multiple biopsies were taken. Mild antral gastritis multiple biopsies taken Specimen(s) Received A: GE junction tumor biopsy Surgical Pathology Report Collected Date/Time: 03/09/2024 08:12 EDT Pathologist: Candelario Israel MD Received Date/Time: 03/10/2024 07:59 EDT Jason DELONG, Honorio Gomez MD, Honorio Anna Specimen(s) Received B: Antrum biopsy Gross Description A: Received in formalin labeled with patient name, identifier, and gastroesophageal junction tumor biopsy are multiple fragments of aleman-pink tissue ranging from 0.2 to 0.4 cm in greatest dimension. Entire specimen submitted in one cassette. B: Received in formalin labeled with patient name, identifier, and antral biopsy are two fragments of aleman/pink tissue measuring 0.1 and 0.2 cm in greatest dimension. Entire specimen submitted in one cassette. (YC) YC:[facility] Microscopic Description A&B: Microscopic examination performed unless gross only specified. The use of one or more reagents in the above tests is regulated as an analyte specific reagent (ASR). The test or tests are ordered following initial H&E microscopic examination. The performance characteristics were determined by the [facility] of [facility]. They have not been cleared or approved by the US Food and Drug Administration. The FDA has determined that such clearance or approval is not necessary. These tests are used for clinical purposes. They should not be regarded as investigational or for research. Appropriate positive and negative controls are performed and are acceptable. Normal [facility] Comment on above: Performed By: #### C D:[id number] #### [facility] [address] [place] [address] General Surgery Office/Clini c Noteon 03-18-2024 General Surgery Office/Clinic Note Chief Complaint Hospital follow up HPI Staff [place] is a 78 y.o. male here for hospital follow up 03/08-03/10/24 Patient presented to [facility] on 03/08/24 with vomiting blood, weakness and diarrhea EGD done 03/09/2024 Last colonoscopy done Today he states he has not had anymore blood or diarrhea. His weakness continues. He has discontinued aspirin 81 mg History of Present Illness The patient or their guardian verbally consented to allow Maria Del Rosario Mihir [place] to record this visit. Jamaica Corrigan is a 78-year-old male referred to us for hospital follow-up. He is seen as a consultation where he underwent EGD on 03/09/2024 which revealed a large GE junction lesion. CT of the chest, abdomen, pelvis showed a 1.5 cm hypodense lesion within the segment 4B of the liver concerning for malignancy with recommendation for MRI with contrast as well as the aforementioned distal esophageal/GE junction mass. This is noted on the CT chest, abdomen, and pelvis, which is obtained for staging purposes. The patient has been referred to the medical oncology service. He is scheduled to see Dr. Henry on 03/24/2024 for further evaluation. He was evaluated for a follow-up on these results by Dr. Sampson on 03/13/2020, and his case has been referred to the tumor board for further discussion. 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 Review of Systems Constitutional: No fever, no sweats, no weight loss. Eyes: No glasses, no blurred vision, no visual loss. ENMT: No dentures, no hoarseness, no swallowing difficulties, no hearing loss, no ear infection(s), no nose bleeds. Cardiovascular: Normal blood pressure, no chest pain, regular heartbeat, no heart murmur. Respiratory: No shortness of breath, no cough, no wheezing, no asthma. Gastrointestinal: No nausea, no vomiting, no diarrhea, no constipation, no blood in stool, no change in bowel habits, no abdominal pain, no hepatitis. Genitourinary: No kidney stones, no urine infection, no difficulty passing urine. Musculoskeletal: No pain, no weakness. Skin: No changing moles, no rash, no skin lumps. Neurologic: No seizures, no epilepsy, no headache. Psychiatric: No emotional, no psychiatric problem. Endocrine: No thyroid, no diabetes. Heme/Lymph: No bleeding problems, no anemia, no blood clots, no transfusions. Allergy/Immunologic: No swollen lymph nodes/glands, no IV drug abuse. Other: Additional ROS info: Except as noted in the above Review of Systems and in the History of Present Illness, all other systems have been reviewed and are negative or noncontributory. Physical Exam Vitals & Measurements HR: 69(Peripheral) BP: 109/65 HT: 66 in HT: 167 cm WT: 93 kg WT: 204.6 lb BMI: 33.35 nad rrr s/nt/nd. 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 1. Malignant neoplasm of lower third of esophagus (C15.5: Malignant neoplasm of lower third of esophagus) Pending immunohistochemical stains, CAD 45, CDX 2, CK7, CK 20, CK 5/6P40, chromogranin and synaptophysin and Ki-67 are pending. The patient is scheduled to follow up with medical oncology. A PET CT will be obtained. Should the patient require a port due to lack of IV access and chemotherapy, he may call our office directly to schedule the surgery without needing to return for a follow-up, as he has been recently evaluated by our team. He should continue a mechanical soft diet given the size of the lesion and the potential for causing a food bolus by eating tougher foods such as steak 2. 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 (Z77.098: Contact with and (suspected) exposure to other hazardous, chiefly nonmedicinal, chemicals) Portions of this record may have been created with voice recognition artificial intelligence software, specifically [employer], [employer] and or [employer]. Substitutions may have occurred due to the inherent limitations of voice recognition and artificial intelligence software. ATTESTATION: Documentation services were performed after patient or guardian consented to allow [employer] to record this visit. RICKIE gas specialist and provider reviewed before signing. RICKIE: Yoselyn Rodriguez Follow-up No qualifying data available 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 Bradycardia CAD in [place] artery Chronic kidney disease, stage 3a Closed displaced fracture of shaft of right clavicle COVID Dyspnea on exertion Hard of hearing 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 HLD (hyperlipidemia) Hospital discharge follow-up Hx of cardiac catheterization Malignant neoplasm of lower third of esophagus Mild diastolic dy (more content not included)... Normal [facility] Comment on above: Result Comment: Elec tronically Signed By: Honorio Gomez MD\.br\Date and Time Signed: 03/18/24 07:22 EDT\.br\Electronically Co-Signed By: Yoselyn Rodriguez\.br\Date and Time Co-Signed: 03/17/24 15:18 EDT Ambulatory Visit Summaryon 0 03-17-2024 Ambulatory Visit Summary JAMAICA CORRIGAN :1945 Visit Date:03/17/2024 Ambulatory Visit Instructions Your Diagnosis Malignant neoplasm of lower third of esophagus 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 These Are Your Goals Complications of Hypertension Avoided - Not met Interventions: Follow low sodium diet - Progressing Keep follow up appointments with provider and complete testing as directed - Progressing Monitor and keep BP log; at least 3 days per week - Not done Review educational material - Done Take Medications as Prescribed - Progressing Complications of Kidney Disease Avoided - Not met Interventions: Avoid high sodium, potassium foods such as; bananas, avacados, canned soups, pickled foods, etc... - Progressing Complete testing/ blood work as directed per provider - Progressing Keep follow up appointments with provider as directed - Progressing Review educational material - Done Complications of Hyperlipidemia avoided - Not met Interventions: Complete bloodwork as directed by provider - Progressing Keep follow up appointments as scheduled - Progressing Maintain active healthy lifestyle and avoid foods high in saturated fats - Progressing Review educational material - Done Take Medications as Prescribed - Progressing CAD complications avoided - Not met Interventions: Keep follow up appointments as scheduled and complete testing, bloodwork as directed by provider - Progressing Maintain an active healthy lifestyle - Progressing Review educational material - Done Take medications as prescribed - Progressing Your Care Team Attending Physician - Honorio Gomez MD Primary Care Physician - Betina Sampson MD This Is Your Medications List cholecalciferol (D3) isosorbide mononitrate (isosorbide mononitrate 30 mg ER Tab) magnesium oxide metoprolol (Lopressor) pantoprazole (Pantoprazole [address] Tab) simvastatin sucralfate (Carafate 1 gram Tab) Procedures Performed Esophagogastroduodenoscop y (03/09/2024), Cystoscopic laser lithotripsy of ureteric calculus (05/24/2023), ESWL of kidney (05/03/2023), Cystoscopic insertion of ureteric stent (04/07/2023), Placement of stent in cardiac conduit (11/2017), Colonoscopy (2017), Carpal tunnel syndrome of left wrist, Carpal tunnel syndrome of right wrist, Kidney stone. Discharge Vitals Heart Rate (Peripheral) 69 Blood Pressure 109/65 Height 167 cm Height 66 in Weight 93 kg Weight 204.6 lb BMI 33.35 What to do next Scheduled Follow-Up Appointments 2023 10:15 AM EDT With: Betina Sampson MD Where: [facility] [place] Invalid Interpretation Code [address] [place] [address]- \.br\ Sunday 8:00 AM EDT \.br\ With: Zachary ELAM MD\.br\ Where: [facility] Ambulatory Visit Summaryon 0 03-13-2024 Ambulatory Visit Summary JAMAICA CORRIGAN :1945 Visit Date:03/13/2024 Ambulatory Visit Instructions Your Diagnosis Hospital discharge follow-up Malignant neoplasm of lower third of esophagus Acute blood loss anemia Weakness BMI 33.0-33.9,adult Class 1 obesity due to excess calories in adult Nonsmoker These Are Your Goals Complications of Hypertension Avoided - Not met Interventions: Follow low sodium diet - Progressing Keep follow up appointments with provider and complete testing as directed - Progressing Monitor and keep BP log; at least 3 days per week - Not done Review educational material - Done Take Medications as Prescribed - Progressing Complications of Kidney Disease Avoided - Not met Interventions: Avoid high sodium, potassium foods such as; bananas, avacados, canned soups, pickled foods, etc... - Progressing Complete testing/ blood work as directed per provider - Progressing Keep follow up appointments with provider as directed - Progressing Review educational material Complications of Hyperlipidemia avoided - Not met Interventions: Complete bloodwork as directed by provider - Progressing Keep follow up appointments as scheduled - Progressing Maintain active healthy lifestyle and avoid foods high in saturated fats - Progressing Review educational material - Done Take Medications as Prescribed - Progressing CAD complications avoided - Not met Interventions: Keep follow up appointments as scheduled and complete testing, bloodwork as directed by provider - Progressing Maintain an active healthy lifestyle - Progressing Review educational material - Done Take medications as prescribed - Progressing Your Care Team Attending Physician - Betina Sampson MD Primary Care Physician - Betina Sampson MD This Is Your Medications List pantoprazole (Pantoprazole [address] Tab) sucralfate (Carafate 1 gram Tab) Contact prescribing physician if questions or concerns cholecalciferol (D3) isosorbide mononitrate (isosorbide mononitrate 30 mg ER Tab) magnesium oxide metoprolol (Lopressor) simvastatin Procedures Performed Esophagogastroduodenoscop y (03/09/2024), Cystoscopic laser lithotripsy of ureteric calculus (05/24/2023), ESWL of kidney (05/03/2023), Cystoscopic insertion of ureteric stent (04/07/2023), Placement of stent in cardiac conduit (11/2017), Colonoscopy (2017), Carpal tunnel syndrome of left wrist, Carpal tunnel syndrome of right wrist, Kidney stone. Discharge Vitals Temperature (Temporal Artery) 37.1 ?C Heart Rate (Peripheral) 66 Respiratory Rate 16 Blood Pressure 112/72 Height 167 cm Height 66 in Weight 93.2 kg Weight 205.04 lb BMI 33.42 What to do next Scheduled Follow-Up Appointments Sunday 1:40 PM EDT With: Jason DELONG, Honorio Anna Where: [facility] General Surgery [place] Invalid Interpretation Code [address] [place] [address]- \.br\ Sunday 9:00 AM EDT \.br\ With: Elaine DELONG, Mhd Yaser\.br\ Where: [facility]\.br\ Sunday 8:00 AM EDT \.br\ With:\.br\ Where: [facility] Family Medicine [facility] Coding Summary.on 03-13-2024 Coding Summary. WUUTZxad19MIg0wEi+PG hlYWQ +XB5SWVZnO61bhXRlcU4sH4HV TElOSywgQVBQTElOSyIgbmFtZ U4xvSXgKPCp IC8+JE7qVBIvLzelbFDit1Z8b TY0T36rwv4fAOqsiNR2PMReQx Uhblebi2kcwGd8JKfjAaqfZrP t STIfiV66PJF5bL51Pw60wSJvo MYjk2qvbAu2MsEvZYZkVOS1iK plMWamr0RsCHEjO88jaUYzo3K 6 ICUizThnaFJbUjZshVI6hZ9yZ Qqicfsvc1leycvzUhd7ri82mQ Noz5C8pWH8I8MafnK8JOZguUI g XiehvHEKoT2hvtbwm1zubnpvJ aIuXWIqDWz4XUp8LPOeqXorBc NePU29ADA3WTRavrIrH2IoJWJ s dDcyHxI1u6N7Or0HR5IUHwyxT 1VNTUFSWTwvdGQ+IK07fn73D1 UjSrnrFyw4WDLiMTC7sNM1gA5 n OBXzSMbjp7X0pCD1Z1QtdwPoi g2tv3noVEKcOBpjV83ioCFql4 H1JBSqhUR1MIVveJwgOlGpqG3 3 Oyc+BFPgjGemr2ZgWmkmg3rph 5jtiBf9PhnmTYYyouFjvNedYK B8x7AlFp4xGHKotSS9kES9fT1 i AjTcXgY2VWluJ801WlMesULpV zvdH83fW8ZtbSJ+CAMtKqq8VB LruEhgNO4lG4VrUUYahozalTA m eRcrNL8kGTGhyzsxCEFnnF3cY FWqU1v6AxFlOvH7DMuuP4XeLU ByubjaFt70rX6mMzUqYsJ7AYr u C6OmotR8ORDrsWIwJRpkIGY3K 20rv7W7GNWuGIXvJOG0tHV2xH 1hbGlnbjogbGVmdDsgdmVydGl j NGjzVNwsX876HVZeyZcsIgRpQ GluZyBEYXRlOiAgMDYvMjAvMj AyNDwvdGQ+PGAuRXC5rDzhUEA n tPZnHMefAp1otRpblTlwWP0jS LYznjaqMRMmmI2zPAQexIVoqP tuZY4lIBCekbaix059YrKwROR 0 DMTzxURaG8FqjQ0lRbVfLSMsF UBtU3CrxLUgPVtdZ704MOqnWp U1CTMpuqGeH5QkJKHtuTjoBcS 0 k3R8Sc1Vk9WtubavL1OpqUFwE eNuBvfxEIi8C8KyXvjhdRQ+PC 73VYIfGN64KTq2EOK6pQznXSd i NXTkG4PwdO6cVgNsKOYvDLEwA yc+PHRhYmxlIHdpZHRoPScxMD WuEeMltDhwKN1zRt5uWZWvOKW v sBkkxKSoPoIdo3wfUWWlNCioH H2vlDmlU3EebJO6EYUnn7a6Au 99O37fW7TmsNC+CJAfnVN9rGC 0 dF2qEzFjNqY2MSupF617PaBjm SFnKbgmb4lor5ypxQl1SfS5US AxufAisUbfWRE2l5KgGq54Z08 s IHdpZHRoPSIxNSUiIHZhbGlnb g7ndQ3uOg5+NIHepTJ7xDS5mH 5jExQcHdD6OHcnA470QnQicUO v Elagz9bpm0jceBq8TaGeVYJmp qPfnWtyNHO6i6YjGr96V1HppS vbj4GfPia4oe00gXKfc3S0lBQ 9 R2JvLXAxclpkeLTjqHaeHM0tN OZwxippHQLhwG0lTZXiA7v8Qs XhYmA1YVsjG7LigsY0XVVfdDT g DYXxyHYUeQ7ytqsnq8afnzmaB aFrXJFnHEu8GPh4QZChwQifZd OcTWQ3CuY7AJA4iZKvnA8zbNk n nlzajH1nIeb+VWG0rNTjeNOUV L8pLnmbhKS+YKHlDSS2uGwuQN xwGSKbcH4vCKMgL3j0BwUeVfB 1 NDyzW7IierA2MIFvrTZpOKJkw VKWwI7cwpmbc9mpzopdUjVdES ToFXr6OCz3JPMcwLwjDdHjVBW 0 AqB4LVU0uABehY5gmJshdoeow G9wOyc+MbxixFfdGKN2KTv8S0 FuGww5IPDboHfpWG3kvMYhJZn u Ct4ihPqudMzaIO9uKOPyvnfgw 271ScMdv1lkTGZzbHLaXNgbEC H3M70ct4X2TTSmIHAiIRV1oWU 4 tF9pcWsctfjeeAHimYwehaIlv SdqHMjhXTzvA635YEWndHwwTf YnJYz4A6RaNqk7HQFocAzzYD9 n kBYmYRwwSj3pjAjrbTarFX9pE RTixnzji187TiYgu9aoCSCifH TlEYtyJEU3D73ic7G0FGWfZRF w EPW2nAV8uF4dyGoleeewmTKkw OcydcRwoJnqRYhnXAzwP779NA FqbXjzZnMcpRf0K6OqHeq2SNC z cSssOU4fuCMcIEbxVe8rpKsgr QujMP7aCQOxslsob450PcFxv4 pnYQTrfTKaRFdbFAN9K10bd3D 6 LYKmGPRpYUK9wSK0mH1isAwer jogbGVmdDsgdmVydGljYWwtYW nfR822SFVwfElsWqNdlXnwngV g ENpjTVz3Y2OmUxxngOO+PC90Y NXnBM61yJLkoDWdf6rmkQw6Lp LkVHCuAGV5bJzkCBuff5OuBNO t F00koXAyp7K4WNKbaQefgVVmZ cTzcAP8aN7uCEkbwubkn6zewy neXlfjy6iqdc09sF77N74gAJe p PNVoZBPiNKGcPRFmbTqkpl3ns G9wIi8+KLYxxEQ2uRS4xT9yAP VdTmN9SIssE062YoJzeOEhVae j o2fnu7dvlIk4UeS9BPRxcnNcv WqrBDC2s8BfTl19B23kQGtyFC HjFSVkBZNdRRAogPkrwh4dpP4 w Ii8+QSCbeRK2xSU8aR3sDrCcR vJ9IYzoX978XjBduSOzClbzQ9 3lE5EfmLS+KYWaRml7JDYbeDx s SA7knIEiGSjhGj6kMJI1HiHjT sPsWMipP6IpVAEqfbzityzaxX S4HDIbIYSxrC54Zn8icNbnALE w yWSDyT5ecflpb7yiedmqGcQyE QIeNYg0RGi2NCFgiWbdAyKuIH V2HkV0CAK3cUXutD9klWirpai g nC9xY6OeWXMsjajsHu77hN1dM eTjUqU0AGfdSba+Z68RRDUBWD PIQUYSRIy9Z3DnIds0BDQbaEr s MF8xgQMpVDdiKe7azLnidVnrS C1iFNIfnkrdYJCwmS2wLEBcpY HnoEsgRF3yWEBhvotte234UuN x XHO6ASMicWYzR3UbsA0mUgMmO DJzHMIqI2RpfQUnAPfuI740TN foUnD1BOZibnMrU9LmSEFerIl u RwI8j2U4Zx1sFD0dLC1aVXC3O E94KB92hRCjs3G0bZL7S6IjQT QxgdkufvwsqTE6KZCdSJKcwV0 7 xGHpTRdoLg2ib1S6f157RCNsL HDgfV83Ck2dxFhlXLNiiNJUhW 8opilhu0xxxdafUaXtUGCbYLr 0 WTw4JGBhsJdbGjPaQNT6MwY8Z JS2rUEvjM2nmNpmbrdfrD4zQn c+EbbtPMWjytX4H2FzNye7XUL z sEocZZ2wvCObTSulBz4unLcnl ZamBY0tUDChwfbkGRJfsC1fVD OksTUscOdkQN8fNLAbrrzzo32 0 WjJaFXP0UKGtnHWpI6JpzP7sI aRlYERdROAxW4OkqTSaRVapU3 15TLyhHrI9JWPnksBuL5DdJWY s hWoiMsZ2y0K3Nr0XBXnwMH78D Y26kDNrk1X8pLU9F8DzBKBurx uhsviyxJD7AAPeEFLaqZ28yHX k VOvnVs2tx6L3w339JVCxSDUoo J04Km4wkOjgIWMgiIHOyU6fma kbr9gnnilrNbUvTNJrCZp0XJi 0 VOMapAsbXoPiTEF9HuB8INX6f PNqmA8jfVzordnrcO9rBnt+T2 JkAJD4GFBnb747A0JqZgpeuDH + KK16VEFpTS05nJMyxYFtv6icy Rl3KkYzWYWtLTR3oQdaRRuxv9 VgEKRzE44jmMFul3W4OZMyoRy h oZHbXxJraQC8uW8sBHaicbote 5iuxzrlLaois0jkyp62tY45U6 9sIHdpZHRoPSIzMCUiIHZhbGl n cf9elC8fZx1+GQSmpRS1gBY6p O0rJvFqPiJ0OKicS583ZwOwzE VxLaqst5aej4rcdPj5OzJyKLG g syLveKhuCVV0j0NzNk57V61gB HdpZHRoPSIyMCUiIHZhbGlnbj 1xoI7lMt1+FS1sj6imli26aR0 8 dHI+NDSkMRM7wPosNMjvTWFqe S0kIXxfYhS8BDErWiXmbH08zY CeYXuuKu2ymJfwyLqvKF6hVES p fdadv610ZaNzu6ugGDUwfTPjA KsqROH0W75lc7R1VRLkOZOvAF R3mBQ9tE3llEdryvbmiHFbzUo g wqTdkWbzNLzePCooN169XYVwb FrhReRrnHQxS4ahixZYUP1dUb wvdGQ+OLPnMGT9iRfyUBvmWGV k cT2xGLCaY3w4RyTsCdM4YKqdN 7AilqT8YLQngQIuVYFbqZOYkP 5felpuq3hylcbrMwGuGNThMLp 0 VKm1TOHzzDilLfJwBIP5McR3M BL2zDAvnA9auOdzqabglG0fSw c+RklOOjwvdGQ+MPBoAXW7iUu l KQwpMKAxrX0uOSYjV3d0BrKeM lQ0BKcwG1WcezB0KRQkiWUrHQ EhnOLAqT0gdjkzi4rslhjcByQ w BQSoQJt1XNm5QXNabPdiNzBhQ GY2PkU5AVN4uWVkwT3yhJhbgt asmH9pFrm+TVJOOjwvdGQ+PHR k TGX8fEnmQNhyJDWawW9kVBIcF 6a7RvKdCdC4XNssR2WuuaI6KY FdtZGuEIOeqOJNdB8ewxdvm8c v uipiGaLyASIyAUq3TGg3HFQtc YvcBfZeRQB8TjP5KCU8tOTtgK 8waGactxytlM4rMxl+MFQ3GJS 6 TX83PU89M1JrKsylbGBkuWR+P HRhYmxlIHdpZHRoPScxMDAlJy PwqEgdVN4bVj2bVFZuEFUgkHu h eMSiCxUao7gaW (more content not included)... Normal [facility] Family Medicine Office/Clini c Noteon 03-13-2024 Family Medicine Office/Clinic Note HPI Staff [place] is a 78 year old male presenting for new mass found esophagus ( Dr Sampson wanted him seen feng after discharge) Patient discharged 03/10/24 [facility] questions/concerns: just needing results from what they found while he was in the hospital History of Present Illness Patient was admitted to the hospital over the weekend for hemoptysis. Patient was found to have a large esophageal tumor. Bleeding was stopped and hemoglobin stabilized. Patient was discharged with close follow-up with me and oncology. Patient was started on a PPI and sucralfate. Patient has not started the PPI. Review of Systems PHQ Score Initial Depression Screen Score: 0 SCORE Physical Exam Vitals & Measurements T: 37.1 ?C(Temporal Artery) HR: 66(Peripheral) RR: 16 BP: 112/72 SpO2: 98% HT: 66 in HT: 167 cm WT: 93.2 kg WT: 205.04 lb BMI: 33.42 General: alert, no acute distress ENMT: oral mucosa moist, Cardiovascular: normal peripheral perfusion Respiratory: respirations non labored Extremities: no deformity, no trauma Neurological: oriented x 4, LOC appropriate for age, CN II-XII intact, motor strength equal & normal bilaterally, speech normal Assessment/Plan 1. Hospital discharge follow-up (Z09: Encounter for follow-up examination after completed treatment for conditions other than malignant neoplasm) TCM reviewed. Discharge summary reviewed. Pathology reviewed. Patient has follow-up with oncology. No other concerns at this time. Ordered: Body Mass Index (BMI) documented 3008F Current tobacco non-user 1036F Depression Screening Negative 3352F Most recent diastolic blood pressure <80 mm Hg 3078F Patient screen for fall risk: no falls in last year or 1 fall with no injury in last year 1101F Systolic BP <130 mm Hg (Most Recent) 3074F 2. Malignant neoplasm of lower third of esophagus (C15.5: Malignant neoplasm of lower third of esophagus) Patient has follow-up with oncology March 24. Reviewed medications with the patient. Concern for the cause of this neoplasm as the patient has not had any acid reflux symptoms or use nicotine products. Patient has had exposure to agent orange during his service. Ordered: Body Mass Index (BMI) documented 3008F Current tobacco non-user 1036F Depression Screening Negative 3352F Most recent diastolic blood pressure <80 mm Hg 3078F Patient screen for fall risk: no falls in last year or 1 fall with no injury in last year 1101F Systolic BP <130 mm Hg (Most Recent) 3074F 3. Acute blood loss anemia (D62: Acute posthemorrhagic anemia) No more blood loss at this time. If patient has any more we will recheck a CBC. Ordered: Body Mass Index (BMI) documented 3008F Current tobacco non-user 1036F Depression Screening Negative 3352F Most recent diastolic blood pressure <80 mm Hg 3078F Patient screen for fall risk: no falls in last year or 1 fall with no injury in last year 1101F Systolic BP <130 mm Hg (Most Recent) 3074F 4. Weakness (R53.1: Weakness) Stable at this time. No other concerns. Ordered: Body Mass Index (BMI) documented 3008F Current tobacco non-user 1036F Depression Screening Negative 3352F Most recent diastolic blood pressure <80 mm Hg 3078F Patient screen for fall risk: no falls in last year or 1 fall with no injury in last year 1101F Systolic BP <130 mm Hg (Most Recent) 3074F 5. BMI 33.0-33.9,adult (Z68.33: Body mass index [BMI] 33.0-33.9, adult) BMI education uploaded to the chart Ordered: Body Mass Index (BMI) documented 3008F Current tobacco non-user 1036F Depression Screening Negative 3352F Most recent diastolic blood pressure <80 mm Hg 3078F Patient screen for fall risk: no falls in last year or 1 fall with no injury in last year 1101F Systolic BP <130 mm Hg (Most Recent) 3074F 6. Class 1 obesity due to excess calories in adult (E66.09: Other obesity due to excess calories) Diet and exercise advised. Ordered: Body Mass Index (BMI) documented 3008F Current tobacco non-user 1036F Depression Screening Negative 3352F Most recent diastolic blood pressure <80 mm Hg 3078F Patient screen for fall risk: no falls in last year or 1 fall with no injury in last year 1101F Systolic BP <130 mm Hg (Most Recent) 3074F 7. Nonsmoker (Z78.9: Other specified health status) Please continue to not smoke. Ordered: Body Mass Index (BMI) documented 3008F Current tobacco non-user 1036F Depression Screening Negative 3352F Most recent diastolic blood pressure <80 mm Hg 3078F Patient screen for fall risk: no falls in last year or 1 fall with no injury in last year 1101F Systolic BP <130 mm Hg (Most Recent) 3074F Orders: pantoprazole, 40 mg = 1 tab(s), Oral, BID, # 60 tab(s), Refills(s) 0, Pharmacy: [id number], 167, cm, 03/13/24 14:49:00 EDT, Height/Length Dosing, 93.2, kg, 03/13/24 14:49:00 EDT, Weight Dosing sucralfate, 1 gm = 1 tab(s), Oral, QID, May dissolve in 10 mls of fluid, # 120 tab(s), Refills(s) 0, Pharmacy: [facility] (more content not included)... Normal [facility] Comment on above: Result Comment: Elec tronically Signed By: Adrián DELONG, Betina Walker.br\Date and Time Signed: 03/13/24 15:18 EDT Discharge Instructionson Discharge Instructions [id number]#[id number] Normal [facility] IntraOperative Documentson 0 03-12-2024 IntraOperative Documents [id number]#[id number] F [facility] Granite Countertop Installer Consultation Noteon 03-12-2024 Granite Countertop Installer Consultation Note [id number]#[id number] [facility] Population Healthon 03-11-20 Population Health Case Information Case Priority: None Programs: -- Referral Source: Pig Conveyor Operator Referral Reason: Care coordination Case Type: Transition Care Management Risk Score: -- Case Status: Enrolled (March 11, 2024) Date Assigned: March 11, 2024 Assigned By: Tha Khalil Date Enrolled: March 11, 2024 Assigned Primary Personnel: Tha Khalil Assigned Secondary Personnel: -- Case Physician: Betina Sampson MD Ongoing 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 Bradycardia CAD in [place] artery Chronic kidney disease, stage 3a Closed displaced fracture of shaft of right clavicle COVID Dyspnea on exertion Hard of hearing 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 HLD (hyperlipidemia) Hospital discharge follow-up Hx of cardiac catheterization Mild diastolic dysfunction Mild persistent asthma without complication Primary hypertension Renal stone TIA on medication Ureteral stone with hydronephrosis Vitamin D deficiency Historical No qualifying data Procedure/Surgical History Esophagogastroduodenoscop y (03/09/2024), Cystoscopic laser lithotripsy of ureteric calculus (05/24/2023), ESWL of kidney (05/03/2023), Cystoscopic insertion of ureteric stent (04/07/2023), Placement of stent in cardiac conduit (11/2017), Colonoscopy (2017), Carpal tunnel syndrome of left wrist, Carpal tunnel syndrome of right wrist, Kidney stone. Home Medications Carafate 1 gram Tab, 1 gm= 1 tab(s), Oral, QID D3, 125 mcg, Oral, Daily isosorbide mononitrate 30 mg ER Tab, 30 mg= 1 tab(s), Oral, qAM Lopressor, 50 mg (take one- half tablet), Oral, BID magnesium oxide, 420 mg, Oral, Once a day (at bedtime) Pantoprazole [address] Tab, 40 mg= 1 tab(s), Oral, BID simvastatin, 10 mg, Oral, Daily Allergies No Known Medication Allergies Social History Alcohol - Denies Alcohol Use, 01/17/2022 Substance Abuse - Denies Substance Abuse, 01/17/2022 Tobacco Never (less than 100 in lifetime) Tobacco Use:. Never Smokeless Tobacco Use:. Household tobacco concerns: No., 12/21/2023 Family History Diabetes mellitus type 2: Father. Screenings and Assessments 03/11/24 10:07:00 Result Name Value Comment Phone Call Monitoring Consent Agreed to continue call Phone Verification Patient Information Full name, street address and date of verified CM Program Enrollment Provides verbal consent for enrollment Goals and Interventions Care Plan Goal: Complications of Hypertension Avoided Start Date: 2023 Target: - - Status: Not met Barriers: - - Comments: - - Intervention Frequency Status Photogrammetric Technician Review educational material - - Done - - Keep follow up appointments with provider and complete testing as directed - - Progressing - - Take Medications as Prescribed - - Progressing - - Monitor and keep BP log; at least 3 days per week - - Not done - - Follow low sodium diet - - Progressing - - Goal: Complications of Kidney Disease Avoided Start Date: 2023 Target: - - Status: Not met Barriers: - - Comments: - - Intervention Frequency Status Photogrammetric Technician Review educational material - - Done - - Keep follow up appointments with provider as directed - - Progressing - - Complete testing/ blood work as directed per provider - - Progressing - - Avoid high sodium, potassium foods such as; bananas, avacados, canned soups, pickled foods, etc... - - Progressing - - Goal: Complications of Hyperlipidemia avoided Start Date: 2023 Target: - - Status: Not met Barriers: - - Comments: - - Intervention Frequency Status Photogrammetric Technician Review educational material - - Done - - Keep follow up appointments as scheduled - - Progressing - - Take Medications as Prescribed - - Progressing - - Complete bloodwork as directed by provider - - Progressing - - Maintain active healthy lifestyle and avoid foods high in saturated fats - - Progressing - - Goal: CAD complications avoided Start Date: 2023 Target: - - Status: Not met Barriers: - - Comments: - - Intervention Frequency Status Photogrammetric Technician Review educational material - - Done - - Keep follow up appointments as scheduled and complete testing, bloodwork as directed by provider - - Progressing - - Maintain an active healthy lifestyle - - Progressing - - Take medications as prescribed - - Progressing - - Progress Note Admit Date: 03/08/24 Date of Discharge: 03/10/24 Follow-up appointment scheduled? yes, TCM follow up with PCP, Dr. Sampson 03/13/24 at 1500 Did you understand your discharge instructions? yes Are you able to follow them? yes Did you receive new medications? yes; pantoprazole 40 mg BID, Carafate 1 gr QID, HOLDING ASA UNTIL PCP OR GS F/U Have you filled the Rx's? yes- [facility] (more content not included)... Normal [facility] Progress Note-Physicianon Progress Note-Physician Patient: J[place]ICA CORRIGAN Age: 78 years Sex: Male : 1945 Associated Diagnoses: None Author: Seth Spaulding Jr, DO Postoperative Information Postoperative disposition: Postoperative disposition: To PACU. Optimetrix number: Optimetrix number [id number]. Anesthetic utilized: General. Health Status Allergies: Allergic Reactions (Selected) No Known Medication Allergies Physical Examination Vital Signs 03/09/2024 8:42 EDT Temperature Temporal Artery 36.3 DegC Heart Rate Monitored 67 bpm Respiratory Rate Monitored 13 br/min Systolic Blood Pressure 101 mmHg Diastolic Blood Pressure 60 mmHg Mean Arterial Pressure, Cuff 74 mmHg SpO2 93 % 03/09/2024 8:35 EDT Heart Rate Monitored 66 bpm Respiratory Rate Monitored 19 br/min Systolic Blood Pressure 97 mmHg Diastolic Blood Pressure 61 mmHg Mean Arterial Pressure, Cuff 73 mmHg SpO2 97 % 03/09/2024 8:30 EDT Heart Rate Monitored 69 bpm Respiratory Rate Monitored 18 br/min Systolic Blood Pressure 91 mmHg Diastolic Blood Pressure 54 mmHg LOW Mean Arterial Pressure, Cuff 66 mmHg SpO2 98 % 03/09/2024 8:25 EDT Heart Rate Monitored 64 bpm Respiratory Rate Monitored 18 br/min Systolic Blood Pressure 83 mmHg LOW Diastolic Blood Pressure 26 mmHg LOW Mean Arterial Pressure, Cuff 45 mmHg SpO2 97 % 03/09/2024 8:20 EDT Heart Rate Monitored 64 bpm Respiratory Rate Monitored 23 br/min Systolic Blood Pressure 73 mmHg LOW Diastolic Blood Pressure 40 mmHg LOW Mean Arterial Pressure, Cuff 51 mmHg SpO2 98 % 03/09/2024 8:16 EDT Temperature Temporal Artery 36.3 DegC Heart Rate Monitored 60 bpm Respiratory Rate Monitored 19 br/min Systolic Blood Pressure 159 mmHg HI Diastolic Blood Pressure 112 mmHg HI Mean Arterial Pressure, Cuff 128 mmHg SpO2 99 % Pain Assessment: Controlled. General: Awake, Alert, Appropriate. Respiratory: Adequate air exchange. Cardiovascular: Stable, Normal peripheral perfusion. Neurological: Normal sensory function, Normal motor function. Assessment Anesthetic outcome No anesthetic complications noted. Adequate pain relief. able to void without difficulty, able to ambulate with assist, tolerating PO intake, no N/V. Review / Management Condition: Stable. Plan Transfer/Discharge: Transfer/Discharge Discharge when meets criteria ( From PACU to floor ). Normal [facility] Comment on above: Result Comment: Elec tronically Signed By: Seth Spaulding Jr, DO\.jean marie\Date and Time Signed: 03/11/24 11:07 EDT Surgical Pathology Reporton 03-11-2024 Surgical Pathology Report [facility] [address] [place] [address]- Surgical Pathology Report Collected Date/Time: 03/09/2024 08:12 EDT Pathologist: Candelario Israel MD Received Date/Time: 03/10/2024 07:59 EDT Jason DELONG, Honorio Gomez MD, Honorio Victor Surgical Pathology Report - 03/11/2024 14:44 EDT - Auth (Verified) Final Diagnosis A. 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 - Pending immunohistochemical stains (CD45, CDX-2, CK7, CK20, CK5/6, P40, Chromogranin, Synaptophysin, Ki67). B. STOMACH, ANTRUM, BIOPSY: - Antral- type gastric mucosa with mild chronic inactive gastritis. - Pending Helicobacter pylori immunohistochemical stain. (Electronic Signature) Yan. Lindy MD 03/11/2024 14:44 Diagnosis Comment This case was discussed with Dr. Gomez on 03/11/24 at 2:40 pm. Clinical Information Hematemesis Pre-Op Diagnosis: Hematemesis Procedure: EGD Post-Op Diagnosis: An esophageal mass was identified at the gastroesophageal junction. The size of the mass was large. The mass was fungating. Multiple biopsies were collected. Esophageal mass: Large fungating mass taking 50% of the circumference of the esophagus at the GE junction ranging from 35 to 41 cm from the teeth multiple biopsies were taken. Mild antral gastritis multiple biopsies taken Specimen(s) Received A: GE junction tumor biopsy B: Antrum biopsy Gross Description A: Received in formalin labeled with patient name, identifier, and gastroesophageal junction tumor biopsy are multiple fragments of aleman-pink tissue ranging from 0.2 to 0.4 cm in greatest dimension. Entire specimen submitted in one cassette. B: Received in formalin labeled with patient name, identifier, and antral biopsy are two fragments of aleman/pink tissue measuring 0.1 and 0.2 cm in greatest dimension. Entire specimen submitted in one cassette. (YC) YC:[facility] Microscopic Description A&B: Microscopic examination performed unless gross only specified. The use of one or more reagents in the above tests is regulated as an analyte specific reagent (ASR). The test or tests are ordered following initial H&E microscopic examination. The performance characteristics were determined by the [facility]. They have not been cleared or approved by the [place] Food and Drug Administration. The FDA has determined that such clearance or approval is not necessary. These tests are used for clinical purposes. They should not be regarded as investigational or for research. Appropriate positive and negative controls are performed and are acceptable. Normal [facility] Comment on above: Performed By: #### [id number] #### [facility] [address] [place] [address] BMPon 03-10-2024 Anion gap [Moles/Vol] 10 mmol/L Normal 6-16 [facility] Comment on above: Performed By: #### [id number] #### [facility] [address] [place] [address] Calcium [Mass/Vol] 8.6 mg/dL Low 8.9-11.1 [facility] Comment on above: Performed By: #### 2 [id number] #### [facility] [address] [place] [address] Chloride [Moles/Vol] 108 mmol/L Normal 101-111 [facility] Comment on above: Performed By: #### 2 [id number] #### [facility] [address] [place] [address] CO2 [Moles/Vol] 27 mmol/L Normal 21-31 [facility] Comment on above: Performed By: #### 2 [id number] #### [facility] [address] [place] [address] Creatinine [Mass/Vol] 1.1 mg/dL Normal 0.5-1.3 [facility] Comment on above: Performed By: #### 2 [id number] #### [facility] [address] [place] [address] Glucose [Mass/Vol] 107 mg/dL Normal 55-199 [facility] Comment on above: Performed By: #### 2 [id number] #### [facility] [address] [place] [address] Potassium [Moles/Vol] 4.5 mmol/L Normal 3.5-5.3 [facility] Comment on above: Performed By: #### 2 [id number] #### [facility] [address] [place] [address] Sodium [Moles/Vol] 140 mmol/L Normal 135-145 [facility] Comment on above: Performed By: #### 2 [id number] #### [facility] [address] [place] [address] Urea nitrogen [Mass/Vol] 33 mg/dL High 5-21 [facility] Comment on above: Performed By: #### 2 [id number] #### [facility] [address] [place] [address] Urea nitrogen/Creatinine [Mass ratio] 30 No Units High 10-20 [facility] Comment on above: Performed By: #### 2 [id number] #### [facility] [address] [place] [address] CBC w/Indiceson 03-10-2024 Erythrocyte distribution width (RBC) [Ratio] 13.6 % Normal 10.9-14.2 [facility] Comment on above: Performed By: #### 2 [id number] #### [facility] [address] [place] [address] Hematocrit (Bld) [Volume fraction] 35.2 % Low 37.7-49.0 [facility] Comment on above: Performed By: #### 2 [id number] #### [facility] [address] [place] [address] Hemoglobin (Bld) [Mass/Vol] 11.9 g/dL Low 13.5-17.5 [facility] Comment on above: Performed By: #### 2 [id number] #### [facility] [address] [place] [address] MCH (RBC) [Entitic mass] 31.3 pg Normal 27.0-34.0 [facility] Comment on above: Performed By: #### 2 [id number] #### [facility] [address] [place] [address] MCHC (RBC) [Mass/Vol] 33.9 g/dL Normal 31.4-36.0 [facility] Comment on above: Performed By: #### 2 [id number] #### [facility] [address] [place] [address] MCV (RBC) [Entitic vol] 92.3 fL Normal 80.0-100.0 [facility] Comment on above: Performed By: #### 2 [id number] #### [facility] [address] [place] [address] Platelet mean volume (Bld) [Entitic vol] 8.4 fL Normal 6.4-10.8 [facility] Comment on above: Performed By: #### 2 [id number] #### [facility] [address] [place] [address] Platelets (Bld) [#/Vol] 162.0 E9/L Normal 150.0-500.0 [facility] Comment on above: Performed By: #### 2 [id number] #### [facility] [address] [place] [address] RBC (Bld) [#/Vol] 3.8 E12/L Low 4.3-5.9 [facility] Comment on above: Performed By: #### 2 [id number] #### [facility] [address] [place] [address] RBC size Nom (Bld) NORMAL Invalid Interpretation Code [facility] Comment on above: Performed By: #### 2 [id number] #### [facility] [address] [place] [address] WBC corrected for nucl RBC Auto (Bld) [#/Vol] 7.7 E9/L Normal 4.0-11.0 [facility] Comment on above: Performed By: #### 2 [id number] #### [facility] [address] [place] [address] CHEMISTRYOrdered By: SYSTEM SYSTEM on 03-10-2024 Anion gap [Moles/Vol] 10 mmol/L Normal 6 - 16 mEq/L Remisol Chem Calcium [Mass/Vol] 8.6 mg/dL Low 8.9 - 11. 1 mg/dL Remisol Chem Chloride [Moles/Vol] 108 mmol/L Normal 101 - 111 mmol/L Remisol Chem CO2 [Moles/Vol] 27 mmol/L Normal 21 - 31 mmol/L Remis ol Chem Creatinine [Mass/Vol] 1.1 mg/dL Normal 0.5 - 1.3 mg/dL Remisol Chem eGFR 68 mL/min/1.73 m2 Normal >=59mL/min /1.73 m2 Remisol Chem Glucose [Mass/Vol] 107 mg/dL Normal 55 - 199 mg/dL Re misol Chem Potassium [Moles/Vol] 4.5 mmol/L Normal 3.5 - 5.3 mmol/L Remisol Chem Sodium [Moles/Vol] 140 mmol/L Normal 135 - 145 mmol/L Remisol Chem Urea nitrogen [Mass/Vol] 33 mg/dL High 5 - 21 mg/dL Remisol Chem Urea nitrogen/Creatinine [Mass ratio] 30 mg/mg High 10 - [address] Abdomen/Pelvis w/ Contras ton 03-10-2024 CT Abdomen/Pelvis w/ Contrast Exam Date/Time: 03/10/2024 11:49 EDT Reason for Exam: Esophageal cancer, staging;Other (please specify) Report Please see CT chest report. Ordering Provider: Anai DE ANDA FINAL REPORT Dictated: 03/10/2024 12:30 pm Nir Eaton DO Signed (Electronic Signature): 03/10/2024 12:30 pm Signed by: Nir Eaton DO Transcribed by: DOLORES Technologist: MATHIEU Technical Comments GFR (mL/min/1/73m2) 68 Contrast: Isovue 300 Contrast amount in ml's: 100 Rectal Contrast Given? No Oral contrast amount in ml's: 0 Normal [facility] CT Chest w/ Contraston 03-10 CT Chest w/ Contrast Exam Date/Time: 03/10/2024 11:49 EDT Reason for Exam: Esophageal cancer, staging;Other (please specify) Report IMPRESSION: LESION OF THE DISTAL ESOPHAGUS/GASTROESOPHAGEA L JUNCTION MEASURING APPROXIMATELY 3 CM IS MOST CONCERNING FOR MALIGNANCY. 1.5 CM HYPODENSE LESION WITHIN SEGMENT IVB OF THE LIVER CONCERNING FOR MALIGNANCY AND WOULD BE BETTER EVALUATED WITH MRI WITH CONTRAST. THE PROSTATE APPEARS MILDLY ENLARGED. POSTERIOR BLADDER WALL LESION VERSUS PROSTATE NODULE INDENTING UPON THE URINARY BLADDER. COLONIC DIVERTICULOSIS WITHOUT DIVERTICULITIS. EXAM: CT Chest abdomen pelvis w/ Contrast History: Esophageal cancer staging. Technique: Multiple contiguous axial images were obtained of the chest, abdomen, and pelvis from the thoracic inlet through the ischial tuberosities with IV contrast. Multiplanar reformats were obtained. Delayed images were obtained. Unless otherwise stated, incidental findings identified in this report do not require routine follow-up imaging. Comparison: None available Findings: CHEST: Visualized portion of the thyroid gland is within normal limits. No axillary, mediastinal, or hilar lymphadenopathy. No thoracic aortic aneurysm or dissection. Heart size is within normal limits. No significant pericardial effusion. Coronary artery calcifications are identified. There is eccentric wall thickening of the distal esophagus/gastroesophagea l junction anteriorly and free craniocaudal length of approximately 3 cm. No dilation of the more proximal esophagus. No pulmonary nodule or mass. No consolidation, pleural effusion, or pneumothorax. Left lower lobe scarring versus atelectasis at the left lung base. No acute osseous abnormality. Degenerative changes of the thoracic spine and both Report shoulders. ABDOMEN/PELVIS: There is a 1.5 cm hypodense lesion within segment IVb of the liver is more dense than simple fluid. Several tiny calcifications within the spleen likely represents sequela of prior granulomatous disease. The gallbladder, stomach, pancreas, and adrenal glands are within normal limits The kidneys enhance uniformly. Mild bilateral perinephric stranding is nonspecific and likely chronic No urinary tract calculi or hydronephrosis. The prostate is mildly enlarged measuring approximately 5 cm in by 4.3 cm x 4.2 cm . Posterior urinary bladder wall lesion versus prostate nodule measuring approximately 2.7 cm, best seen on sagittal series 13 image 45. Abdominal aorta is nonaneurysmal. No retroperitoneal or abdominal/pelvic lymphadenopathy. No small bowel obstruction. No overt colonic mass or pericolonic inflammation. Colonic diverticuli are identified. No findings of acute appendicitis.. No free fluid or free air. No acute osseous abnormality. Degenerative changes of the lumbar spine and both hips. All CT scans at this facility use dose modulation, iterative reconstruction, and/or weight based dosing when appropriate to reduce radiation dose to as low as reasonably achievable. Ordering Provider: Anai DE ANDA FINAL REPORT Dictated: 03/10/2024 12:30 pm Nir Eaton DO Signed (Electronic Signature): 03/10/2024 12:30 pm Signed by: Nir Eaton DO Transcribed by: DOLORES Technologist: MATHIEU Technical Comments GFR (mL/min/1/73m2) 68 Contrast: Isovue 300 Contrast amount in ml's: 100 Normal [facility] Consenton 03-10-2024 Consent [id number] Normal [facility] Consultation Noteon 03-10-20 Consultation Note EGD completed, findi ngs notable for large fungating GE junction mass from 35 to 41 cm from the teeth taking up nearly 50% of the circumference of the esophageal lumen multiple biopsies were achieved. There was mild antral gastritis for which biopsies were also taken. Recommend PPI twice daily Carafate 4 times daily Recommend staging CT chest abdomen and pelvis with IV contrast Recommend medical oncology evaluation (this can be done in the outpatient setting of course) updated family yesterday morning (03/09/2024) on further discussion with the patient and his they noted that the patient had Agent Mariposa exposure during his service in the [place] [employer]. Normal [facility] Comment on above: Result Comment: Elec tronically Signed By: Jason DELONG, Honorio Stephensbr\Date and Time Signed: 03/10/24 07:29 EDT HEMATOLOGYOrdered By: SYSTEM SYSTEM on 03-10-2024 Erythrocyte distribution width (RBC) [Ratio] 13.6 % Normal 10.9 - 14.2 % Remisol Heme Hematocrit (Bld) [Volume fraction] 35.2 % Low 37.7 - 49.0 % Remisol Heme Hemoglobin (Bld) [Mass/Vol] 11.9 g/dL Low 13.5 - 17.5 gm/dL Remisol Heme MCH (RBC) [Entitic mass] 31.3 pg Normal 27.0 - 34.0 pg Remisol Heme MCHC (RBC) [Mass/Vol] 33.9 g/dL Normal 31.4 - 36.0 gm/dL Remisol Heme MCV (RBC) [Entitic vol] 92.3 fL Normal 80.0 - 100.0 fL Remisol Heme Platelet mean volume (Bld) [Entitic vol] 8.4 fL Normal 6.4 - 10.8 fL Remisol Heme Platelets (Bld) [#/Vol] 162.0 E9/L Normal 150.0 - 500.0 E9/L Remisol Heme RBC (Bld) [#/Vol] 3.8 E12/L Low 4.3 - 5.9 E12/L Re misol Heme RBC size Nom (Bld) NORMAL *NA* (03/10/24 6:07 AM) Invalid Interpretation Code Remisol Heme WBC corrected for nucl RBC Auto (Bld) [#/Vol] 7.7 E9/L Normal 4.0 - 11.0 E9/L Remisol Heme Inpatient Clinical Summaryon 03-10-2024 Inpatient Clinical Summary [place] [id number] Clinical Summary Person Information: Name: JAMAICA CORRIGAN Age: 78 Years : 1945 Sex: Male PCP: Betina Sampson MD Marital Status: Race: White Ethnicity: Non- or Language: Japanese Visit Id: Visit Reason: Weakness or fatigue; Diarrhea; Vomiting; Spitting up blood, D/N/V Speciality: Acuity: Enc Type: Observation Med Service: Medical Arrival: 03/08/2024 07:22:36 Discharge: Dispo Type: Admitted as IP to this Hosp Address: [address] [place] [phone] Provider Notes: Diagnosis: 1:Hematemesis; 2:Acute blood loss anemia; 3:Esophagus cancer; 4:Weakness; 5:Diarrhea; 6:CAD in [place] artery; 7:HLD (hyperlipidemia); 8:Primary hypertension; 9:TIA on medication; 10:Obese; 12:On deep vein thrombosis (DVT) prophylaxis Problems Active 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 Ureteral stone with hydronephrosis COVID TIA on medication Hospital discharge follow-up Hard of hearing Renal stone Primary hypertension Chronic kidney disease, stage 3a Mild persistent asthma without complication Closed displaced fracture of shaft of right clavicle 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 Mild diastolic dysfunction Vitamin D deficiency Dyspnea on exertion Bradycardia HLD (hyperlipidemia) Hx of cardiac catheterization CAD in [place] artery Smoking Status: Former Smoker Functional Status: Sensory Deficits: Hearing deficit, left ear, Hearing deficit, right ear History of Falls: Mobility Assistance Prior to Admission: Independent ADLs: Independent Current Level of Assistance for Self-Care/Mobility: Cognitive Status: Oriented x 3 Allergies No Known Medication Allergies Measurements: Height: 167.64 cm Weight: 92.4 kg Blood Pressure: 117 mmHg / 73 mmHg BMI: 32.88 kg/m2 Procedures Esophagogastroduodenoscop y (03/09/2024) Immunizations No Immunizations Documented This Visit Final Med List: aspirin (Aspir 81) 81 Milligram By Mouth every day. cholecalciferol (D3) 125 Microgram By Mouth every day. isosorbide mononitrate (isosorbide mononitrate 30 mg ER Tab) 1 Tablets By Mouth once a day (in the morning). Refills: 0. magnesium oxide 420 Milligram By Mouth once a day (at bedtime). metoprolol (Lopressor) 50 mg (take one- half tablet) By Mouth 2 times a day. pantoprazole (Pantoprazole [address] Tab) 1 Tablets By Mouth 2 times a day. Refills: 0. simvastatin 10 Milligram By Mouth every day. sucralfate (Carafate 1 gram Tab) 1 Tablets By Mouth 4 times a day. May dissolve in 10 mls of fluid. Refills: 0. Care Team Members: Attending Physician: KRISH DELONG, Anai Consulting Physician: Elaine DELONG, Honorio Villafana MD Referring Physician: Follow up: With: Address: When: Betina Sampson [facility], MED [address] [place], [place] [phone] Business (2) 03/13/2024 3:00 PM Comments: Keep scheduled appointment With: Address: When: Honorio HanleyrichmondnaeudyJESUS [address], [address] [place] [phone] Business (1) 03/17/2024 1:30 AM Comments: Keep scheduled appointment With: Address: When: Terell Zapata, ONC [facility] [address] [place] [address] Within 1 to 2 weeks Comments: Dr. Zapata office will call you with appointment time at [phone]. Type Location Start Finish State FM Open [facility] [place] 03/13/2024 3:00 PM 03/13/2024 3:30 PM Confirmed GS New 30 [facility] [place] 03/17/2024 1:40 PM 03/17/2024 2:00 PM Confirmed FM Open [facility] [place] 03/20/2024 10:15 AM 03/20/2024 10:30 AM Confirmed FM Medicare Wellness Subsequent [facility] [place] 07/08/2024 8:00 AM 07/08/2024 9:00 AM Confirmed URO Office Visit [facility] [place] 12/26/2024 8:00 AM 12/26/2024 8:15 AM Confirmed Patient Education Information: Gastrointestinal Bleeding; Esophageal Cancer Normal [facility] Inpatient Patient Summaryon 03-10-2024 Inpatient Patient Summary [address] [address] Patient Discharge Instructions PERSON INFORMATION Name: JAMAICA CORRIGAN Date of : 1945 Current Date: 03/10/2024 12:41:32 PHYSICIANS Admitting Physician: KRISH DELONG, Anai Primary Care Physician: Betina Sampson MD PCP Comment: Discharge Diagnosis: 1:Hematemesis; 2:Acute blood loss anemia; 3:Esophagus cancer; 4:Weakness; 5:Diarrhea; 6:CAD in [place] artery; 7:HLD (hyperlipidemia); 8:Primary hypertension; 9:TIA on medication; 10:Obese; 12:On deep vein thrombosis (DVT) prophylaxis Condition at Discharge: JAMAICA Kendrick has been given the following list of follow-up instructions, prescriptions, and patient education materials: PATIENT FOLLOW-UP INFORMATION Diet: Fat Modified- Low cholesterol, Low Sodium- 2000 mg Discharge Activity: Ambulate as tolerated, Activity as tolerated Discharge Restrictions: Wound Care Instructions: Remove Your Dressing In Days Call Your Doctor For: IF UNABLE TO CONTACT YOUR PHYSICIAN AND YOU FEEL IT IS AN EMERGENCY, GO TO THE NEAREST EMERGENCY ROOM OR CALL 911 Home Treatment: Devices/Equipment: None Special Services: Additional Instructions: Primary Care Physician to provide the following pending test results: Biopsy/pathology Follow up: With: Address: When: Betina Sampson [facility], [facility] [place] [address] Business (2) 03/13/2024 3:00 PM Comments: Keep scheduled appointment With: Address: When: Honorio Gomez JESUS [address], [facility] [address] [facility] [address] [place] [phone] Business (1) 03/17/2024 1:30 AM Comments: Keep scheduled appointment With: Address: When: Terell Zapata, ONC [facility] [address] [place] [address] Within 1 to 2 weeks Comments: Dr. Zapata office will call you with appointment time at [phone]. In the event that this physician does not participate in your insurance network, please consult with your insurance company to find a nearby participating provider. Type [facility] 3:00 PM 03/13/2024 3:30 PM Confirmed GS New 30 [facility] [place] 03/17/2024 1:40 PM 03/17/2024 2:00 PM Confirmed FM Open [facility] [place] 03/20/2024 10:15 AM 03/20/2024 10:30 AM Confirmed FM Medicare Wellness Subsequent [facility] [place] 07/08/2024 8:00 AM 07/08/2024 9:00 AM Confirmed URO Office Visit [facility] [place] 12/26/2024 8:00 AM 12/26/2024 8:15 AM Confirmed Comment: SHEKHAR Mccabe KARL J, have received the attached patient education materials/instructions and have verbalized understanding: Patient Signature ____ Date Clinican/Nurse Signature Date HERE ARE THE MEDICATION CHANGES THAT OCCURRED DURING YOUR HOSPITAL STAY New Medications [facility] [address] [place] [phone], [phone] pantoprazole (Pantoprazole [address] Tab) 1 Tablets By Mouth 2 times a day. Refills: 0. Last Dose: Next Dose: [facility] [address], [address] [place] [phone], [phone] sucralfate (Carafate 1 gram Tab) 1 Tablets By Mouth 4 times a day. May dissolve in 10 mls of fluid. Refills: 0. Last Dose: Next Dose: Medications to Continue with No Changes Other Medications aspirin (Aspir 81) 81 Milligram By Mouth every day. Patient instructions: DO NOT TAKE ASPIRIN UNTIL ADVISED BY THE GENERAL SURGEON OR YOUR PCP. Last Dose: Next Dose: cholecalciferol (D3) 125 Microgram By Mouth every day. Last Dose: Next Dose: isosorbide mononitrate (isosorbide mononitrate 30 mg ER Tab) 1 Tablets By Mouth once a day (in the morning). Refills: 0. Last Dose: Next Dose: magnesium oxide 420 Milligram By Mouth once a day (at bedtime). Last Dose: Next Dose: metoprolol (Lopressor) 50 mg (take one- half tablet) By Mouth 2 times a day. Last Dose: Next Dose: simvastatin 10 Milligram By Mouth every day., patient does not take atorva- ccm intake December Last Dose: Next Dose: Comment: MEDICATION LIST PROVIDED FOR YOU IS A LIST OF YOUR CURRENT MEDICATIONS. PLEASE CARRY THIS WITH YOU AT ALL TIMES. aspirin (Aspir 81) 81 Milligram By Mouth every day. cholecalciferol (D3) 125 Microgram By Mouth every day. isosorbide mononitrate (isosorbide mononitrate 30 mg ER Tab) 1 Tablets By Mouth once a day (in the morning). Refills: 0. magnesium oxide 420 Milligram By Mouth once a day (at bedtime). metoprolol (Lopressor) 50 mg (take one- half tablet) By Mout (more content not included)... Normal [facility] Inpatient Patient Summary JAMAICA CORRIGAN :1945 Visit Date:03/08/2024 Inpatient Discharge Instructions Your Care Team Admitting Physician - Anai DE ANDA MD Consulting Physician - Honorio Gomez MD Reason for Your Visit diarrhea/emesis Your Diagnosis Hematemesis Acute blood loss anemia Esophagus cancer Weakness Diarrhea CAD in [place] artery HLD (hyperlipidemia) Primary hypertension TIA on medication Obese On deep vein thrombosis (DVT) prophylaxis Diarrhea Vomiting Weakness or fatigue Tests Performed CT Abdomen/Pelvis w/ Contrast -- Results Pending -- CT Chest w/ Contrast -- Results Pending -- Please visit your patient portal for your results or contact your primary care physician. This Is Your Medications List aspirin (Aspir 81) cholecalciferol (D3) isosorbide mononitrate (isosorbide mononitrate 30 mg ER Tab) magnesium oxide metoprolol (Lopressor) pantoprazole (Pantoprazole [address] Tab) simvastatin sucralfate (Carafate 1 gram Tab) Procedure History Esophagogastroduodenoscop y (03/09/2024), Cystoscopic laser lithotripsy of ureteric calculus (05/24/2023), ESWL of kidney (05/03/2023), Cystoscopic insertion of ureteric stent (04/07/2023), Placement of stent in cardiac conduit (11/2017), Colonoscopy (2017), Carpal tunnel syndrome of left wrist, Carpal tunnel syndrome of right wrist, Kidney stone. Discharge Vitals Temperature (Axillary) 36.6 ?C Heart Rate (Apical) 80 Respiratory Rate 17 Blood Pressure 117/73 Weight 92.4 kg What to do next Instructions From Your Doctor Event Name Event Result Discharge Activity Ambulate as tolerated, Activity as tolerated Discharge Diet(s) Fat Modified- Low cholesterol, Low Sodium- 2000 mg Pending Diagnostic Test Results Biopsy/pathology Previously Scheduled Follow-Up Appointments 2023 3:00 PM EDT With: Betina Sampson MD Where: [facility] Invalid Interpretation Code [address] [place] [address]- \.br\ 2023 10:15 AM EDT \.br\ With: Betina Sampson MD\.br\ Where: [facility] Interdisciplinary Note - Reji e Manageron 03-10-2024 Interdisciplinary Note - Community Manager Pt is awake and alert in bed, previously rounded with Dr. De Anda. PCP verified and insurance information reviewed and DME discussed. Contact information provided and white board updated. at bedside. Observation status reviewed. Pt is independent from home with and she will transport at Dc. Declines any concerns or DC needs. CRM following Normal [facility] Comment on above: Result Comment: Elec tronically Signed By: Neeta SPAULDING, Carmela\.br\Date and Time Signed: 03/10/24 09:41 EDT Main OR Intraoperative Recor don 03-10-2024 Main OR Intraoperative Record IntraOp Document Type FT Summary Primary Physician: Honorio Gomez MD Finalized Date/Time: 03/10/24 15:08:58 Pt. Name: JAMAICA CORRIGAN Jessica Colon./Sex: 1945 Male Med Rec #: [id number] Physician: KRISH DELONG [facility] Financial #: [id number] Pt. Type: O Room/Bed: [place] [address] Admit/Disch: 03/08/24 07:22:36 - 03/10/24 13:33:06 Institution: Case Times FT Entry 1 Patient Times In Room 03/09/24 07:56:00 Out Room 03/09/24 08:15:00 Procedure Times Start 03/09/24 08:00:00 Stop 03/09/24 08:09:00 Anesthesia Times Start 03/09/24 07:56:00 Stop 03/09/24 08:15:00 Last Modified By: Dena Vargas RN 03/09/24 08:13:42 General Comments: 03/10/24 Chart opened for charge review per [place] Carlton RN. [place] Case Attendance FT Entry 1 Entry 2 Entry 3 Case Attendee Jason DELONG, Honorio Vargas RN, Kimber Guajardo Role Performed Surgeon - Primary Computer Typesetter - Primary Scrub - Primary Time In 03/09/24 07:56:00 03/09/24 07:56:00 03/09/24 07:56:00 Time Out 03/09/24 08:15:00 03/09/24 08:15:00 03/09/24 08:15:00 Procedure EGD(.) EGD(.) EGD(.) Comments Last Modified By: Dena Vargas RN, RN, Kristin N Sherman RN, Kristin N 03/09/24 08:13:43 03/09/24 08:13:43 03/09/24 08:13:43 Entry 4 Case Attendee Seth Spaulding Jr, DO Role Performed Anesthesiologist of Record Time In 03/09/24 07:56:00 Time Out 03/09/24 08:15:00 Procedure EGD(.) Comments Last Modified By: Dena Vargas RN 03/09/24 08:13:43 Perioperative Protocols FT Pre-Care Text: Implements protective measures prior to operative or invasive procedure, confirms identity before the operative or invasive procedure, verifies operative procedure, surgical site, and laterality Entry 1 Procedure(s) EGD(.) Patient Identity Birthday, ID Band Verified (select at Check, Patient least 2): Participation Consents / H and P Anesthesia Consent, Operative Site N/A Verified HandP, Surgery/Procedure Marking Verified Consent Surgical Site No Laterality Verified n/a Verified Procedure Verified Yes Correct Patient Yes Position Verified Availability Equipment, Medication Prep Dry n/a Verified (If Applicable) PreOp Antibiotic No Time Out Honorio Gomez MD, Given Participants Dena Vargas RN, Sparks, Micala E, Marsh Jr DO, James A Time Out Complete 03/09/24 07:59:00 Outcomes Met? Yes Last Modified By: Dena Vargas RN 03/09/24 08:09:06 Post-Care Text: The patient is free from signs and symptoms of injury caused by extraneous objects Allergy Information FT Pre-Care Text: Verifies allergies Entry 1 Allergies Reviewed? Yes Allergies Reviewed Self/Patient With Outcomes Met? Yes Last Modified By: Dena Vargas RN 03/09/24 07:10:39 Post-Care Text: The patient received appropriate medication(s) safely administered during the perioperative period Surgical Procedures FT Entry 1 Procedure Description Procedure EGD Modifiers . Surgeon Description EGD with GE junction tumor biopsy and antral biopsy. 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 Yes Last Modified By: Dena Vargas RN 03/09/24 07:11:22 Post-Care Text: The patient is free from signs and symptoms of injury caused by extraneous objects Patient Positioning FT Pre-Care Text: Identifies physical alterations that require additional precautions for procedure-specific positioning, verifies presence of prosthetics or corrective devices, positions the patient, evaluates the patient for signs and symptoms of injury as a result of positioning Entry 1 Procedure EGD(.) Body Position Lateral, right side up Feet Uncrossed? Yes Left Arm Position Resting at Side Right Arm Position Resting at Side Left Leg Position Extended Right Leg Position Extended Positioning Device Safety Strap, Pillow Under Head Large Press Points Checked Yes By Dena Vargas RN (more content not included)... Normal [facility] Progress Note-Physicianon Progress Note-Physician Basic Information Pt is a 78-year-old male with a PMH of hypertension, hyperlipidemia, TIAs, chronic kidney disease, coronary artery disease status post stent x 1-about 2 years ago, obesity, and exposure to [place]. Pt denies past or present use of cigarettes, or alcohol. He presented to the ED with complaints of vomiting blood x2, with associated burping, nausea, vomiting, and diarrhea. He denies personal history of ulcers. He was admitted to the floor for further evaluation with the dx of hematemesis, weakness, and diarrhea. Gastroenterology was consulted and an EGD was completed on the morning of 03/09/2024. 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 Esophageal mass is taking about 50% of the circumference of the esophagus. Multiple biopsies were taken, currently awaiting results. Subjective Pt was seen and examined in his room. Family member was at the bedside. He is in no acute distress, sitting up in bed, watching television and visiting with family. Review of Systems Constitutional: no fever, no chills, no sweats, no weakness Respiratory: no shortness of breath, no cough, no orthopnea, no wheezing Cardiovascular: no chest pain, no palpitations, no edema Additional ROS info: Except as noted in the above Review of Systems and in the History of Present Illness all other systems have been reviewed and are negative or noncontributory. Objective Vitals & Measurements T: 36.5 ?C(Temporal Artery) TMIN: 36.3 ?C(Temporal Artery) TMAX: 36.9 ?C(Axillary) HR: 70(Monitored) RR: 18 BP: 115/76 BP: 101/69(Standing) BP: 144/83(Supine) SpO2: 99% Intake & Output This visit (24 hour periods starting at 07:00 EDT) 03/09/24 * 03/08/24 03/07/24 Total Summary Intake mL 292.02 1,540 -- Output mL -- -- -- Fluid Balance 292.02 1,540 -- Intake (7) Oral Intake mL -- 520 -- Sodium Chloride 0.9% mL 210 1,000 -- Sodium Chloride 0.9% intravenous solution 1,000 mL mL 50 -- -- lidocaine mL 2 -- -- pantoprazole mL 10 20 -- phenylephrine mL 0.02 -- -- propofol mL 20 -- -- Total 292.02 1,540 -- Output (0) Counts (1) Urine Count -- 1 -- * This column has not completed the indicated time period. Physical Exam General: alert, no acute distress ENMT: TM's clear, oral mucosa moist, no pharyngeal erythema or exudate, hearing: impaired B/L Cardiovascular: regular rate and rhythm, normal peripheral perfusion Respiratory: Lungs CTA, respirations non labored Extremities: no deformity, no trauma Neurological: oriented x 4, LOC appropriate for age, CN II-XII intact, motor strength equal & normal bilaterally, sensation equal & normal bilaterally, speech normal Lab Results WBC: 9.5 E9/L (03/09/24 06:25:00) RBC: 4.2 E12/L Low (03/09/24 06:25:00) HGB: 13 gm/dL Low (03/09/24 06:25:00) Hct: 38.9 % (03/09/24 06:25:00) MCV: 92.9 fL (03/09/24 06:25:00) MCH: 31 pg (03/09/24 06:25:00) MCHC: 33.4 gm/dL (03/09/24 06:25:00) RDW: 13.7 % (03/09/24 06:25:00) Platelet: 172 E9/L (03/09/24 06:25:00) MPV: 8.5 fL (03/09/24 06:25:00) Neutro Auto: 60.7 % (03/09/24 06:25:00) Lymph Auto: 28.5 % (03/09/24 06:25:00) [place] Auto: 8.5 % (03/09/24 06:25:00) Eos Auto: 1.8 % (03/09/24 06:25:00) Basophil Auto: 0.5 % (03/09/24 06:25:00) Neutro Absolute: 5.7 E9/L (03/09/24 06:25:00) Lymph Absolute: 2.7 E9/L (03/09/24 06:25:00) [place] Absolute: 0.8 E9/L (03/09/24 06:25:00) Eos Absolute: 0.2 E9/L (03/09/24 06:25:00) Basophil Absolute: 0 E9/L (03/09/24 06:25:00) Diagnostic Results * Final Report * GI Specialty EGD Procedure * Patient: JAMAICA CORRIGAN Age: 78 years Sex: Male : 1945 Associated Diagnoses: None Author: Honorio Gomez MD Pre-Procedure Procedure Date 03/09/2024 08:11:00 . Procedure Type: Esophagogastroduodenoscop y with biopsy. Procedure provider Performed by Rylie Gomez MD Pre-procedure diagnosis: Acute non-variceal bleeding. ASA Classification: Class IV. . Monitoring: See anesthesia record. . Procedure The procedure was performed in the hospital. See anesthesia record for sedation given during procedure. The patient was positioned starting in the left lateral decubitus position. Endoscope type used was an adult-size, introduced orally, advanced to the 3rd portion of the duodenum. No difficulty was encountered during the procedure. Views were excellent. Squamocolumnar junction biopsies were taken. Gastric biopsies were taken. The patient tolerated the procedure well. Findings An esophageal mass was identified at the gastroesophageal junction. The size of the mass was large. The mass was fungating. Multiple biopsies were collected. Esophageal mass: Large fungating mass taking 50% of the circumference of the esophagus at the GE junction ranging from 35 to 41 cm from the teeth multiple biopsies were taken. Mild antral gastritis multiple biopsies (more content not included)... Normal [facility] Comment on above: Result Comment: Elec tronically Signed By: KRISH DELONG, Anai\.br\Date and Time Signed: 03/10/24 09:05 EDT eGFRon 03-10-2024 eGFR 68 mL/min/1.73 m2 Normal >=59 [facility] Comment on above: Order Comment: Order added by Discern Expert. Performed By: #### 1 [id number] ####[facility] [id number] [place] [address] CBC w/ Auto Diffon 4 Basophils/100 WBC (Bld) 0.5 % Normal 0.0-2.0 [facility] Comment on above: Performed By: #### 2 [id number] #### [facility] [address] [place] [address] Basophils/Leukocyte s Auto (Bld) [Pure # fraction] 0.0 E9/L Normal 0.0-0.2 [facility] Comment on above: Performed By: #### 2 [id number] #### [facility] [address] [place] [address] Eosinophils (Bld) [#/Vol] 0.2 E9/L Normal 0.0-0.5 [facility] Comment on above: Performed By: #### 2 [id number] #### [facility] [address] [place] [address] Eosinophils/100 WBC (Bld) 1.8 % Normal 0.0-8.0 [facility] Comment on above: Performed By: #### 2 [id number] #### [facility] [address] [place] [address] Erythrocyte distribution width (RBC) [Ratio] 13.7 % Normal 10.9-14.2 [facility] Comment on above: Performed By: #### 2 [id number] #### [facility] [address] [place] [address] Hematocrit (Bld) [Volume fraction] 38.9 % Normal 37.7-49.0 [facility] Comment on above: Performed By: #### 2 [id number] #### [facility] [address] [place] [address] Hemoglobin (Bld) [Mass/Vol] 13.0 g/dL Low 13.5-17.5 [facility] Comment on above: Performed By: #### 2 [id number] #### [facility] [address] [place] [address] Lymphocytes (Bld) [#/Vol] 2.7 E9/L Normal 1.0-4.0 [facility] Comment on above: Performed By: #### 2 [id number] #### [facility] [address] [place] [address] Lymphocytes/100 WBC (Bld) 28.5 % Normal 14.0-50.0 [facility] Comment on above: Performed By: #### 2 [id number] #### [facility] [address] [place] [address] MCH (RBC) [Entitic mass] 31.0 pg Normal 27.0-34.0 [facility] Comment on above: Performed By: #### 2 [id number] #### [facility] [address] [place] [address] MCHC (RBC) [Mass/Vol] 33.4 g/dL Normal 31.4-36.0 [facility] Comment on above: Performed By: #### 2 [id number] #### [facility] [address] [place] [address] MCV (RBC) [Entitic vol] 92.9 fL Normal 80.0-100.0 [facility] Comment on above: Performed By: #### 2 [id number] #### [facility] [address] [place] [address] Monocytes (Bld) [#/Vol] 0.8 E9/L Normal 0.2-1.0 [facility] Comment on above: Performed By: #### 2 [id number] #### [facility] [address] [place] [address] Neutrophils (Bld) [#/Vol] 5.7 E9/L Normal 2.0-7.5 [facility] Comment on above: Performed By: #### 2 [id number] #### [facility] [address] [place] [address] Neutrophils/100 WBC (Bld) 60.7 % Normal 36.0-75.0 [facility] Comment on above: Performed By: #### 2 [id number] #### [facility] [address] [place] [address] Platelet mean volume (Bld) [Entitic vol] 8.5 fL Normal 6.4-10.8 [facility] Comment on above: Performed By: #### 2 [id number] #### [facility] [address] [place] [address] Platelets (Bld) [#/Vol] 172.0 E9/L Normal 150.0-500.0 [facility] Comment on above: Performed By: #### 2 [id number] #### [facility] [address] [place] [address] RBC (Bld) [#/Vol] 4.2 E12/L Low 4.3-5.9 [facility] Comment on above: Performed By: #### 2 [id number] #### [facility] [address] [place] [address] WBC corrected for nucl RBC Auto (Bld) [#/Vol] 9.5 E9/L Normal 4.0-11.0 [facility] Comment on above: Performed By: #### 2 [id number] #### [facility] [address] [place] [address] Consultation Noteon 03-09-20 Consultation Note EGD completed, findi ngs notable for large fungating GE junction mass from 35 to 41 cm from the teeth taking up nearly 50% of the circumference of the esophageal lumen multiple biopsies were achieved. There was mild antral gastritis for which biopsies were also taken. Recommend PPI twice daily Carafate 4 times daily Recommend staging CT chest abdomen and pelvis with IV contrast Recommend medical oncology evaluation (this can be done in the outpatient setting of course) Normal [facility] Comment on above: Result Comment: Elec tronically Signed By: Jason DELONG, Honorio Walker.br\Date and Time Signed: 03/09/24 08:15 EDT ED Note-Physicianon 03-09-20 ED Note-Physician Basic Information Time Seen: Meghan Palomo M.D. 03/08/2024 07:33 Chief Complaint Pt reports he had one episode of vomiting with blood in it around 2330 last night. Increase in flatulence but no abd pain/ blood in stools. ASA 81 daily. denies hx of ulcers, denies hx of alcohol intake. reports increase in weakness. History of Present Illness The patient is a 78-year-old male past medical history of hypertension, coronary artery disease who presented to the emergency room with vomiting and diarrhea. The patient states last night around 10-11 PM he started feeling discomfort on his abdomen. The patient states he went to the bathroom and he vomited twice. The patient states the vomiting was dark. The states she went and saw the vomiting this morning and it was blood. The patient stated he had loose stool last night. He did not pay attention to the color of the stool. The patient states he feels thirsty like he is dehydrated. The patient denies any bad food. The patient's states that they travel to [place] recently. The patient states today he feels weak tired. He denies any chest pain. The patient states sometimes with exertion he will get short of breath. The patient states he takes baby aspirin daily. He denies taking any ibuprofen or Aleve [id number]. The patient denies any other associated symptoms. Review of Systems Additional ROS info: Except as noted in the above Review of Systems and in the History of Present Illness all other systems have been reviewed and are negative or noncontributory. Physical Exam Vitals & Measurements T: 36.4 ?C(Oral) HR: 81(Monitored) RR: 15 BP: 121/84 SpO2: 96% HT: 167.64 cm WT: 92.4 kg BMI: 32.88 General: alert, no acute distress Skin: warm, dry, Head: no trauma, normocephalic Neck: Trachea midline, Eye: normal conjunctiva, sclera clear ENMT: Oral mucosa moist, Cardiovascular: regular rate and rhythm Respiratory: Lungs CTA, respirations non labored, breath sounds equal, Gastrointestinal: soft, non distended, no tenderness, no guarding, Extremities: no deformity, no trauma Neurological: Alert and oriented, motor strength equal & normal bilaterally, sensation equal & normal bilaterally, speech normal, no focal neuro deficits Psychiatric: cooperative, affect appropriate for age, Medical Decision Making MEDICAL DECISION MAKING Number and Complexity of Problems Differential Diagnosis: [] [facility] Data External documents reviewed: [] My EKG interpretation: [] My CT interpretation: [] My X-ray interpretation: [] My Ultrasound interpretation: [] Decision rules/scores evaluated: [] Discussed with: Dr Gomez, hospitalist Treatment and Disposition ED Course: The patient presented with vomiting blood. His hemoglobin is dropped 3 g from his previous value in October 2023. The patient was given IV fluid and PPI. Initially the case was discussed with who recommends patient could be admitted to the hospitalist. The case is discussed with the hospitalist and the patient will be admitted to the hospitalist services. Shared decision making: [] Code status: [] Assessment/Plan 1. Weakness (R53.1: Weakness) 2. Hematemesis (K92.0: Hematemesis) 3. Diarrhea (R19.7: Diarrhea, unspecified) Orders: pantoprazole, 40 mg = 10 mL, Injection, IV Push, Once, Stop date 03/08/24 7:46:00 EDT, STAT, Start date 03/08/24 7:46:00 EDT, Infuse over 2 minute(s), 03/08/24 7:46:00 EDT Sodium Chloride 0.9% intravenous solution, 1,000 mL, Soln-IV, IV, Once, Stop date 03/08/24 7:52:00 EDT, STAT, Start date 03/08/24 7:52:00 EDT, Infuse over 61, minute(s) ABO/Rh ABO/Rh History Check Antibody Screen Basic Metabolic Panel Blood Bank ID# CBC w/ Auto Diff eGFR Hepatic Function Panel Magnesium Level PT & PTT Stool Occult Blood Troponin Medications Administered Given NS 1000 ml Bolus, 1000 mL, IV pantoprazole 40 mg IV Inj, 40 mg, IV Push Disposition Plan Patient Discharge Condition Stable Discharge Disposition Admitted to the hospital Discharge Prescription List Prescriptions No active prescription medications Follow-up No qualifying data available 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 Bradycardia CAD in [place] artery Chronic kidney disease, stage 3a Closed displaced fracture of shaft of right clavicle COVID Dyspnea on exertion Hard of hearing HLD (hyperlipidemia) Hospital discharge follow-up Hx of cardiac catheterization Mild diastolic dysfunction Mild persistent asthma without complication Primary hypertension Renal stone TIA on medication Ureteral stone with hydronephrosis Vitamin D deficiency Historical No qualifying data Procedure/Surgical History Cystoscopic laser lithotripsy of ureteric calculus (05/24/2023), ESWL of kidney (05/03/2023), Cystoscopic insertion of ureteric stent (04/07/2023), Placem (more content not included)... Normal [facility] Comment on above: Result Comment: Elec tronically Signed By: Stacia Soto, Meghan Tompkins\.jean marie\Date and Time Signed: 03/09/24 07:03 EDT HEMATOLOGYOrdered By: SYSTEM SYSTEM on 03-09-2024 Basophils/100 WBC (Bld) 0.5 % Normal 0.0 - 2.0 % Remisol Heme Basophils/Leukocyte s Auto (Bld) [Pure # fraction] 0.0 E9/L Normal 0.0 - 0.2 E9/L Remisol Heme Eosinophils (Bld) [#/Vol] 0.2 E9/L Normal 0.0 - 0.5 E9/L Remisol Heme Eosinophils/100 WBC (Bld) 1.8 % Normal 0.0 - 8.0 % Remisol Heme Erythrocyte distribution width (RBC) [Ratio] 13.7 % Normal 10.9 - 14.2 % Remisol Heme Hematocrit (Bld) [Volume fraction] 38.9 % Normal 37.7 - 49.0 % Remisol Heme Hemoglobin (Bld) [Mass/Vol] 13.0 g/dL Low 13.5 - 17.5 gm/dL Remisol Heme Lymphocytes (Bld) [#/Vol] 2.7 E9/L Normal 1.0 - 4.0 E9/L Remisol Heme Lymphocytes/100 WBC (Bld) 28.5 % Normal 14.0 - 50.0 % Remisol Heme MCH (RBC) [Entitic mass] 31.0 pg Normal 27.0 - 34.0 pg Remisol Heme MCHC (RBC) [Mass/Vol] 33.4 g/dL Normal 31.4 - 36.0 gm/dL Remisol Heme MCV (RBC) [Entitic vol] 92.9 fL Normal 80.0 - 100.0 fL Remisol Heme Monocytes (Bld) [#/Vol] 0.8 E9/L Normal 0.2 - 1.0 E9/L Remisol Heme Monocytes/100 WBC (Bld) 8.5 % Normal 4.0 - 14.0 % Remisol Heme Neutrophils (Bld) [#/Vol] 5.7 E9/L Normal 2.0 - 7.5 E9/L Remisol Heme Neutrophils/100 WBC (Bld) 60.7 % Normal 36.0 - 75.0 % Remisol Heme Platelet mean volume (Bld) [Entitic vol] 8.5 fL Normal 6.4 - 10.8 fL Remisol Heme Platelets (Bld) [#/Vol] 172.0 E9/L Normal 150.0 - 500.0 E9/L Remisol Heme RBC (Bld) [#/Vol] 4.2 E12/L Low 4.3 - 5.9 E12/L Re misol Heme WBC corrected for nucl RBC Auto (Bld) [#/Vol] 9.5 E9/L Normal 4.0 - 11.0 E9/L Remisol Heme Main OR Intraoperative Recor don 03-09-2024 Main OR Intraoperative Record IntraOp Document Type FT Summary Primary Physician: Honorio Gomez MD Finalized Date/Time: 03/09/24 08:13:53 Pt. Name: JAMAICA CORRIGAN Jessica Colon./Sex: 1945 Male Med Rec #: [id number] Physician: KRISH DELONG, [facility] Financial #: [id number] Pt. Type: O Room/Bed: [place] [address] Admit/Disch: 03/08/24 07:22:36 - Institution: Case Times FT Entry 1 Patient Times In Room 03/09/24 07:56:00 Out Room 03/09/24 08:15:00 Procedure Times Start 03/09/24 08:00:00 Stop 03/09/24 08:09:00 Anesthesia Times Start 03/09/24 07:56:00 Stop 03/09/24 08:15:00 Last Modified By: Dena Vargas RN 03/09/24 08:13:42 Case Attendance FT Entry 1 Entry 2 Entry 3 Case Attendee Jason DELONG, Honorio Vargas RN, Kimber Guajardo Role Performed Surgeon - Primary Computer Typesetter - Primary Scrub - Primary Time In 03/09/24 07:56:00 03/09/24 07:56:00 03/09/24 07:56:00 Time Out 03/09/24 08:15:00 03/09/24 08:15:00 03/09/24 08:15:00 Procedure EGD(.) EGD(.) EGD(.) Comments Last Modified By: Sam SPAULDING, Dena Vargas RN, Dena Vargas RN, Dena Franco 03/09/24 08:13:43 03/09/24 08:13:43 03/09/24 08:13:43 Entry 4 Case Attendee Seth Spaulding Jr, DO Role Performed Anesthesiologist of Record Time In 03/09/24 07:56:00 Time Out 03/09/24 08:15:00 Procedure EGD(.) Comments Last Modified By: Dena Vargas RN 03/09/24 08:13:43 Perioperative Protocols FT Pre-Care Text: Implements protective measures prior to operative or invasive procedure, confirms identity before the operative or invasive procedure, verifies operative procedure, surgical site, and laterality Entry 1 Procedure(s) EGD(.) Patient Identity Birthday, ID Band Verified (select at Check, Patient least 2): Participation Consents / H and P Anesthesia Consent, Operative Site N/A Verified HandP, Surgery/Procedure Marking Verified Consent Surgical Site No Laterality Verified n/a Verified Procedure Verified Yes Correct Patient Yes Position Verified Availability Equipment, Medication Prep Dry n/a Verified (If Applicable) PreOp Antibiotic No Time Out Honorio Gomez MD, Given Participants Dena Vargas RN, Kimber Garcia Marsh Jr DO, James A Time Out Complete 03/09/24 07:59:00 Outcomes Met? Yes Last Modified By: Dena Vargas RN 03/09/24 08:09:06 Post-Care Text: The patient is free from signs and symptoms of injury caused by extraneous objects Allergy Information FT Pre-Care Text: Verifies allergies Entry 1 Allergies Reviewed? Yes Allergies Reviewed Self/Patient With Outcomes Met? Yes Last Modified By: Dena Vargas RN 03/09/24 07:10:39 Post-Care Text: The patient received appropriate medication(s) safely administered during the perioperative period Surgical Procedures FT Entry 1 Procedure Description Procedure EGD Modifiers . Surgeon Description EGD with GE junction tumor biopsy and antral biopsy. 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 Yes Last Modified By: Dena Vargas RN 03/09/24 07:11:22 Post-Care Text: The patient is free from signs and symptoms of injury caused by extraneous objects Patient Positioning FT Pre-Care Text: Identifies physical alterations that require additional precautions for procedure-specific positioning, verifies presence of prosthetics or corrective devices, positions the patient, evaluates the patient for signs and symptoms of injury as a result of positioning Entry 1 Procedure EGD(.) Body Position Lateral, right side up Feet Uncrossed? Yes Left Arm Position Resting at Side Right Arm Position Resting at Side Left Leg Position Extended Right Leg Position Extended Positioning Device Safety Strap, Pillow Under Head Large Press Points Checked Yes By Dena Vargas RN Outcomes Met? Yes Last Modified By: Dena Vargas RN 03/09/24 08:12:08 Post-Care Text: Th (more content not included)... Normal [facility] Main OR PACU I Recordon 02-22 Main OR PACU I Record PACU Phase I Document Type FT Summary Primary Physician: Honorio Gomez MD Finalized Date/Time: 03/09/24 08:50:50 Pt. Name: JAMAICA CORRIGAN/Sex: 1945 Male Med Rec #: [id number] Physician: Anai DE ANDA MD Financial #: [id number] Pt. Type: O Room/Bed: [facility]/ Admit/Disch: 03/08/24 07:22:36 - Institution: Case Times PACU I FT Pre-Care Text: Identifies barriers to communication and implements measures to provide psychological support Develops individualized plan of care, and ensures continuity of care Maintains patient's dignity and privacy, and maintains patient confidentiality Identifies and reports philosophical, cultural, and spiritual beliefs and values Identifies individual values and wishes concerning care Implements aseptic technique, and administers prescribed antibiotic therapy and immunizing agents as ordered Evaluates postoperative tissue perfusion Implements thermoregulation measures, and monitors body temperature Evaluates postoperative respiratory status Evaluates postoperative cardiac status Evaluates postoperative neurological status Assesses pain control, collaborated in initiating patient-controlled analgesia and implements alternative methods of pain control Verifies allergies, administers prescribed medications and solutions, evaluates response to medications Entry 1 In PACU I 03/09/24 08:16:00 Discharge from PACU 03/09/24 08:46:00 I Outcomes Met? Yes Last Modified By: Alison Hodges I 03/09/24 08:50:36 Post-Care Text: The patient demonstrates knowledge of the expected response to the operative or invasive procedure The patient's care is consistent with the individualized perioperative plan of care The patient's right to privacy is maintained The patient's value system, lifestyle, ethnicity, and culture are considered, respected, and incorporated into the perioperative plan of care The patient participates in decisions affecting his or her perioperative plan of care The patient is free from signs and symptoms of infection The patient has wound/tissue perfusion consistent with or improved from baseline levels established preoperatively The patient is at or returning to normothermia at the conclusion of the immediate postoperative period The patient's respiratory function is consistent with or improved from baseline levels established preoperatively The patient's cardiovascular status is consistent with or improved from baseline levels established preoperatively The patient's cardiovascular status is consistent with or improved from baseline levels established preoperatively The patient demonstrates and/or reports adequate pain control throughout the perioperative period The patient received appropriate medication(s), safely administered during the perioperative period Acuity Level PACU I FT Entry 1 Start Time 03/09/24 08:16:00 Stop Time 03/09/24 08:46:00 Acuity Level Acuity Level I Last Modified By: Alison Hodges I 03/09/24 08:50:47 Finalized By: Alison Hodegs I Document Signatures Signed By: Alison Hodges I 03/09/24 08:50 [facility] Main OR Preoperative Recordo n 03-09-2024 Main OR Preoperative Record Holding Area Document Type FT Summary Primary Physician: Honorio Gomez MD Finalized Date/Time: 03/09/24 07:34:06 Pt. Name: JAMAICA CORRIGAN /Sex: 1945 Male Med Rec #: [id number] Physician: Anai DE ANDA MD Financial #: [id number] Pt. Type: O Room/Bed: Admit/Disch: 03/08/24 07:22:36 - Institution: Case Times Holding FT Pre-Care Text: Verifies consent for planned procedure, identifies individual values and wishes concerning care, includes family members in perioperative teaching Secures patient's records' belongings, and valuables, maintains patient's dignity and privacy, and maintains patient confidentiality Entry 1 In Holding 03/09/24 07:28:00 Outcomes Met? Yes Last Modified By: Dena Vargas RN 03/09/24 07:33:13 Post-Care Text: The patient participates in decisions affecting his or her perioperative plan of care The patient's right to privacy is maintained Surgery Checklist FT Entry 1 Patient Birthday, ID Band Procedure History and Physical, Identification: Check, Patient Verification: Surgical Consent, With Participation Patient NPO after Midnight: Yes Personal Items: Glasses Personal Items inpatient, bilateral Limitations: no Comment: hearign aides, heart stent x3 yrs ago Complaints of Pain: No Pain Comment: no Operative Site n/a Marked By: n/a Marking: Availability Equipment Verified: Does Patient Smoke No Patient states Yes Comment - Adult inpatient postop adult Supervision supervision available Case Cancelled in No Holding Area see comments below for reason Last Modified By: Dena Vargas RN 03/09/24 07:33:54 Finalized By: Dena Vargas RN Document Signatures Signed By: Dena Vargas RN 03/09/24 07:34 Normal [facility] Monitor Recordon 03-09-2024 Monitor Record [id number] Normal [facility] Monitor Record [id number] Normal [facility] Operative Reporton Operative Report Patient: SAMMY CORRIGAN Age: 78 years Sex: Male : 1945 Associated Diagnoses: None Author: Honorio Gomez MD Pre-Procedure Procedure Date 03/09/2024 08:11:00 . Procedure Type: Esophagogastroduodenoscop y with biopsy. Procedure provider Performed by Honorio Gomez MD. Pre-procedure diagnosis: Acute non-variceal bleeding. ASA Classification: Class IV. . Monitoring: See anesthesia record. . Procedure The procedure was performed in the hospital. See anesthesia record for sedation given during procedure. The patient was positioned starting in the left lateral decubitus position. Endoscope type used was an adult-size, introduced orally, advanced to the 3rd portion of the duodenum. No difficulty was encountered during the procedure. Views were excellent. Squamocolumnar junction biopsies were taken. Gastric biopsies were taken. The patient tolerated the procedure well. Findings An esophageal mass was identified at the gastroesophageal junction. The size of the mass was large. The mass was fungating. Multiple biopsies were collected. Esophageal mass: Large fungating mass taking 50% of the circumference of the esophagus at the GE junction ranging from 35 to 41 cm from the teeth multiple biopsies were taken. Mild antral gastritis multiple biopsies taken Post-Procedure Complications: none. Estimated blood loss: none. Specimens: sent to pathology. Devices/ implants: none left in place. Impression and Plan EGD: Course: Progressing as expected. Normal [facility] Comment on above: Result Comment: Elec tronically Signed By: Honorio Gomez MD\.br\Date and Time Signed: 03/09/24 08:13 EDT Progress Note-Physicianon Progress Note-Physician Basic Information Pt is a 78-year-old male with a PMH of hypertension, hyperlipidemia, TIAs, chronic kidney disease, coronary artery disease status post stent x 1-about 2 years ago, obesity, and exposure to [place]. Pt denies past or present use of cigarettes, or alcohol. He presented to the ED with complaints of vomiting blood x2, with associated burping, nausea, vomiting, and diarrhea. He denies personal history of ulcers. He was admitted to the floor for further evaluation with the dx of hematemesis, weakness, and diarrhea. Gastroenterology was consulted and an EGD was completed on the morning of 03/09/2024. 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 Esophageal mass is taking about 50% of the circumference of the esophagus. Multiple biopsies were taken, currently awaiting results. Subjective Pt was seen and examined in his room. Family member was at the bedside. He is in no acute distress, sitting up in bed, watching television and visiting with family. Review of Systems Constitutional: no fever, no chills, no sweats, no weakness Respiratory: no shortness of breath, no cough, no orthopnea, no wheezing Cardiovascular: no chest pain, no palpitations, no edema Additional ROS info: Except as noted in the above Review of Systems and in the History of Present Illness all other systems have been reviewed and are negative or noncontributory. Objective Vitals & Measurements T: 36.5 ?C(Temporal Artery) TMIN: 36.3 ?C(Temporal Artery) TMAX: 36.9 ?C(Axillary) HR: 70(Monitored) RR: 18 BP: 115/76 BP: 101/69(Standing) BP: 144/83(Supine) SpO2: 99% Intake & Output This visit (24 hour periods starting at 07:00 EDT) 03/09/24 * 03/08/24 03/07/24 Total Summary Intake mL 292.02 1,540 -- Output mL -- -- -- Fluid Balance 292.02 1,540 -- Intake (7) Oral Intake mL -- 520 -- Sodium Chloride 0.9% mL 210 1,000 -- Sodium Chloride 0.9% intravenous solution 1,000 mL mL 50 -- -- lidocaine mL 2 -- -- pantoprazole mL 10 20 -- phenylephrine mL 0.02 -- -- propofol mL 20 -- -- Total 292.02 1,540 -- Output (0) Counts (1) Urine Count -- 1 -- * This column has not completed the indicated time period. Physical Exam General: alert, no acute distress ENMT: TM's clear, oral mucosa moist, no pharyngeal erythema or exudate, hearing: impaired B/L Cardiovascular: regular rate and rhythm, normal peripheral perfusion Respiratory: Lungs CTA, respirations non labored Extremities: no deformity, no trauma Neurological: oriented x 4, LOC appropriate for age, CN II-XII intact, motor strength equal & normal bilaterally, sensation equal & normal bilaterally, speech normal Lab Results WBC: 9.5 E9/L (03/09/24 06:25:00) RBC: 4.2 E12/L Low (03/09/24 06:25:00) HGB: 13 gm/dL Low (03/09/24 06:25:00) Hct: 38.9 % (03/09/24 06:25:00) MCV: 92.9 fL (03/09/24 06:25:00) MCH: 31 pg (03/09/24 06:25:00) MCHC: 33.4 gm/dL (03/09/24 06:25:00) RDW: 13.7 % (03/09/24 06:25:00) Platelet: 172 E9/L (03/09/24 06:25:00) MPV: 8.5 fL (03/09/24 06:25:00) Neutro Auto: 60.7 % (03/09/24 06:25:00) Lymph Auto: 28.5 % (03/09/24 06:25:00) [place] Auto: 8.5 % (03/09/24 06:25:00) Eos Auto: 1.8 % (03/09/24 06:25:00) Basophil Auto: 0.5 % (03/09/24 06:25:00) Neutro Absolute: 5.7 E9/L (03/09/24 06:25:00) Lymph Absolute: 2.7 E9/L (03/09/24 06:25:00) [place] Absolute: 0.8 E9/L (03/09/24 06:25:00) Eos Absolute: 0.2 E9/L (03/09/24 06:25:00) Basophil Absolute: 0 E9/L (03/09/24 06:25:00) Diagnostic Results * Final Report * GI Specialty EGD Procedure * Patient: JAMAICA CORRIGAN Age: 78 years Sex: Male : 1945 Associated Diagnoses: None Author: Honorio Gomez MD Pre-Procedure Procedure Date 03/09/2024 08:11:00 . Procedure Type: Esophagogastroduodenoscop y with biopsy. Procedure provider Performed by Honorio Gomez MD. Pre-procedure diagnosis: Acute non-variceal bleeding. ASA Classification: Class IV. . Monitoring: See anesthesia record. . Procedure The procedure was performed in the hospital. See anesthesia record for sedation given during procedure. The patient was positioned starting in the left lateral decubitus position. Endoscope type used was an adult-size, introduced orally, advanced to the 3rd portion of the duodenum. No difficulty was encountered during the procedure. Views were excellent. Squamocolumnar junction biopsies were taken. Gastric biopsies were taken. The patient tolerated the procedure well. Findings An esophageal mass was identified at the gastroesophageal junction. The size of the mass was large. The mass was fungating. Multiple biopsies were collected. Esophageal mass: Large fungating mass taking 50% of the circumference of the esophagus at the GE junction ranging from 35 to 41 cm from the teeth multiple biopsies were taken. Mild antral gastritis multiple biopsies (more content not included)... Normal [facility] Comment on above: Result Comment: Elec tronically Signed By: Milton Gonzalez DO\.br\Date and Time Signed: 03/09/24 15:14 EDT Progress Note-Physician Patient: JAMAICA CORRIGAN Age: 78 years Sex: Male : 1945 Associated Diagnoses: None Author: Seth Spaulding Jr, DO Preoperative Information Anesthesia Preop Info: Time patient last ate or drank 03/09/2024 00:00:00. Anesthesia history: Patient history: None. Family history+: None. Informed consent: Signed by patient. Re-evaluation prior to induction: Initial evaluation reviewed: No significant change. Review of Systems Eye: Negative except as documented in history of present illness. Ear/Nose/Mouth/Throat: Negative except as documented in history of present illness. Respiratory: Negative except as documented in history of present illness. Cardiovascular: Negative except as documented in history of present illness. Musculoskeletal: Negative except as documented in history of present illness. Neurologic: Negative except as documented in history of present illness. Health Status Allergies: Allergic Reactions (Selected) No Known Medication Allergies Problem list: All Problems Vitamin D deficiency / SNOMED CT 37961816 / Confirmed Mild persistent asthma without complication / SNOMED CT 8412525541 / Confirmed TIA on medication / SNOMED CT 622023372 / Confirmed Hospital discharge follow-up / SNOMED CT 8514217998 / Confirmed Ureteral stone with hydronephrosis / SNOMED CT 8595634315 / Confirmed HLD (hyperlipidemia) / SNOMED CT 809544518 / Confirmed Renal stone / SNOMED CT 344143625 / Confirmed Hx of cardiac catheterization / SNOMED CT 1429887359 / Confirmed Hard of hearing / SNOMED CT 15547762 / Confirmed Primary hypertension / SNOMED CT 76146562 / Confirmed Dyspnea on exertion / SNOMED CT 736048247 / Confirmed Mild diastolic dysfunction / SNOMED CT 0919039 / Confirmed COVID / SNOMED CT 7809241108 / Confirmed CAD in [place] artery / SNOMED CT 61075238 / Confirmed Closed displaced fracture of shaft of right clavicle / SNOMED CT 109649231 / Confirmed 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 / SNOMED CT 7650231657 / Confirmed Added at the request of Dr. Sampson, per outpatient CDI policy. Chronic kidney disease, stage 3a / SNOMED CT 3905247669 / Confirmed Bradycardia / SNOMED CT 36690034 / Confirmed Canceled: Kidney stone / SNOMED CT 173068061 Canceled: HD (heloma durum) / SNOMED CT 48229182 Canceled: Excessive ear wax / SNOMED CT 392339 Histories Procedure history: Rt Laser Litho & Rt Stent Removal ([id number]) on 05/24/2023 at 77 Years. Rt ESWL (02225624) on 05/03/2023 at 77 Years. Cysto/'Rt Stent Placement (530355922) on 04/07/2023 at 77 Years. Colonoscopy (789127601) in 2018 at 73 Years. Placement of stent in cardiac conduit ([id number]) in the month of 11/2017 at 72 Years. Carpal tunnel syndrome of left wrist (460707394384911). Carpal tunnel syndrome of right wrist (300051664741350). Kidney stone (659113678). Comments: 06/11/2023 11:40 Michelle Jang LPN ablation and stent is out April 2023 Social History Social & Psychosocial Habits Alcohol 03/08/2024 Risk Assessment: Denies Alcohol Use Substance Abuse 03/08/2024 Risk Assessment: Denies Substance Abuse Tobacco 03/08/2024 Tobacco Use: Never (less than 100 in l Smokeless tobacco use: Never Concerns about tobacco use in household: No . Physical Examination Airway: Mallampati classification: II (soft palate, fauces, uvula visible). Respiratory: adequate air exchange. Cardiovascular: Regular rhythm. Plan [place] [employer] (ASA) physical status classification: Class III. Anesthetic Preoperative Plan: Anesthesia General. Normal [facility] Comment on above: Result Comment: Elec tronically Signed By: Jasson Nino DO, Seth Burgos\fredo\Date and Time Signed: 03/09/24 08:58 EDT ABO/Rhon 03-08-2024 ABO/Rh Negative Invalid Interpretation Code [facility] Comment on above: Performed By: #### 2 [id number] #### [facility] [address] [place] [address] ABO/Rh History Checkon 03-08 ABO/Rh History Check Type verified by second s Normal [facility] Comment on above: Performed By: #### 1 [id number] #### [facility] [address] [place] [address] ABO/Rh Retypeon 03-08-2024 ABO/Rh Retype Interp Negative Invalid Interpretation Code [facility] Comment on above: Performed By: #### 1 [id number] #### [facility] [address] [place] [address] ABSCon 03-08-2024 ABSC Gel Interp Negative Normal [facility] Comment on above: Performed By: #### 1 [id number] #### [facility] [address] [place] [address] BLOOD BANKOrdered By: Zita Raza on 03-08-2024 ABO/Rh Retype Interp Negative Invalid Interpretation Code [facility] Subsection ABO/Rh Interp Negative Invalid Interpretation Code [facility] [place] Subsection ABSC Gel Interp Negative (03/08/24 7:57 AM) Normal [facility] [place] [place] Subsection BMPon 03-08-2024 Anion gap [Moles/Vol] 12 mmol/L Normal 03-09 [facility] Comment on above: Performed By: #### 2 [id number] #### [facility] [address] [place] [address] Calcium [Mass/Vol] 9.1 mg/dL Normal 8.9-11.1 [facility] Comment on above: Performed By: #### 2 [id number] #### [facility] [address] [place] [address] Chloride [Moles/Vol] 108 mmol/L Normal 101-111 [facility] Comment on above: Performed By: #### 2 [id number] #### [facility] [address] [place] [address] CO2 [Moles/Vol] 24 mmol/L Normal 21-31 [facility] Comment on above: Performed By: #### 2 [id number] #### [facility] [address] [place] [address] Creatinine [Mass/Vol] 1.1 mg/dL Normal 0.5-1.3 [facility] Comment on above: Performed By: #### 2 [id number] #### [facility] [address] [place] [address] Glucose [Mass/Vol] 143 mg/dL Normal 55-199 [facility] Comment on above: Performed By: #### 2 [id number] #### [facility] [address] [place] [address] Potassium [Moles/Vol] 4.7 mmol/L Normal 3.5-5.3 [facility] Comment on above: Performed By: #### 2 [id number] #### [facility] [address] [place] [address] Sodium [Moles/Vol] 139 mmol/L Normal 135-145 [facility] Comment on above: Performed By: #### 2 [id number] #### [facility] [address] [place] [address] Urea nitrogen [Mass/Vol] 54 mg/dL High 5-21 [facility] Comment on above: Performed By: #### 2 [id number] #### [facility] [address] [place] [address] Urea nitrogen/Creatinine [Mass ratio] 49 No Units High 10-20 [facility] Comment on above: Performed By: #### 2 [id number] #### [facility] [address] [place] [address] Blood Bank ID#on 03-08-2024 BBID# [id number] Invalid Interpretation Code [facility] Comment on above: Performed By: #### 1 [id number] #### [facility] [address] [place] [address] CBC w/ Auto Diffon 4 Basophils/100 WBC (Bld) 0.6 % Normal 0.0-2.0 [facility] Comment on above: Performed By: #### 2 [id number] #### [facility] [address] [place] [address] Basophils/Leukocyte s Auto (Bld) [Pure # fraction] 0.1 E9/L Normal 0.0-0.2 [facility] Comment on above: Performed By: #### 2 [id number] #### [facility] [address] [place] [address] Eosinophils (Bld) [#/Vol] 0.0 E9/L Normal 0.0-0.5 [facility] Comment on above: Performed By: #### 2 [id number] #### [facility] [address] [place] [address] Eosinophils/100 WBC (Bld) 0.1 % Normal 0.0-8.0 [facility] Comment on above: Performed By: #### 2 [id number] #### [facility] [address] [place] [address] Erythrocyte distribution width (RBC) [Ratio] 13.6 % Normal 10.9-14.2 [facility] Comment on above: Performed By: #### 2 [id number] #### [facility] [address] [place] [address] Hematocrit (Bld) [Volume fraction] 38.4 % Normal 37.7-49.0 [facility] Comment on above: Performed By: #### 2 [id number] #### [facility] [address] [place] [address] Hemoglobin (Bld) [Mass/Vol] 13.2 g/dL Low 13.5-17.5 [facility] Comment on above: Performed By: #### 2 884235 #### [facility] [address] [place] [address] Lymphocytes (Bld) [#/Vol] 1.0 E9/L Normal 1.0-4.0 [facility] Comment on above: Performed By: #### 2 [id number] #### [facility] [address] [place] [address] Lymphocytes/100 WBC (Bld) 10.2 % Low 14.0-50.0 [facility] Comment on above: Performed By: #### 2 [id number] #### [facility] [address] [place] [address] MCH (RBC) [Entitic mass] 31.5 pg Normal 27.0-34.0 [facility] Comment on above: Performed By: #### 2 [id number] #### [facility] [address] [place] [address] MCHC (RBC) [Mass/Vol] 34.4 g/dL Normal 31.4-36.0 [facility] Comment on above: Performed By: #### 2 [id number] #### [facility] [address] [place] [address] MCV (RBC) [Entitic vol] 91.7 fL Normal 80.0-100.0 [facility] Comment on above: Performed By: #### 2 696903 #### [facility] [address] [place] [address] Monocytes (Bld) [#/Vol] 0.6 E9/L Normal 0.2-1.0 [facility] Comment on above: Performed By: #### 2 [id number] #### [facility] [address] [place] [address] Neutrophils (Bld) [#/Vol] 8.1 E9/L High 2.0-7.5 [facility] Comment on above: Performed By: #### 2 720905 #### [facility] [address] [place] [address] Neutrophils/100 WBC (Bld) 83.2 % High 36.0-75.0 [facility] Comment on above: Performed By: #### 2 [id number] #### [facility] [address] [place] [address] Platelet 175.0 E9/L Normal 150.0-500.0 [facility] Comment on above: Performed By: #### 2 [id number] #### [facility] [address] [place] [address] Platelet mean volume (Bld) [Entitic vol] 8.2 fL Normal 6.4-10.8 [facility] Comment on above: Performed By: #### 2 [id number] #### [facility] [address] [place] [address] RBC (Bld) [#/Vol] 4.2 E12/L Low 4.3-5.9 [facility] Comment on above: Performed By: #### 2 [id number] #### [facility] [address] [place] [address] WBC corrected for nucl RBC Auto (Bld) [#/Vol] 9.7 E9/L Normal 4.0-11.0 [facility] Comment on above: Performed By: #### 2 [id number] #### [facility] [address] [place] [address] CHEMISTRYOrdered By: SYSTEM SYSTEM on 03-08-2024 Albumin [Mass/Vol] 3.7 g/dL Normal 3.3 - 5.0 gm/dL R emisol Chem Albumin/Globulin [Mass ratio] 1.6 {ratio} Normal 1.1 - 2.2 Remisol Chem ALP [Catalytic activity/Vol] 43 [iU]/d Normal 21 - 98 Int._Unit/L Remisol Chem ALT No additional P-5'-P [Catalytic activity/Vol] 19 [iU]/d Normal 6 - 46 Int._Unit/L Remisol Chem Anion gap [Moles/Vol] 12 mmol/L Normal 6 - 16 mEq/L Remisol Chem AST [Catalytic activity/Vol] 16 [iU]/d Normal 5 - 43 Int._Unit/L Remisol Chem Bilirubin [Mass/Vol] 0.6 mg/dL Normal 0.0 - 1.1 mg/dL Remisol Chem Bilirubin.direct [Mass/Vol] 0.1 mg/dL Normal 0.0 - 0.4 mg/dL Remisol Chem Bilirubin.indirect [Mass or moles/Vol] 0.5 mg/dL Normal 0.1 - 0.9 mg/dL Remisol Chem Calcium [Mass/Vol] 9.1 mg/dL Normal 8.9 - 11. 1 mg/dL Remisol Chem Chloride [Moles/Vol] 108 mmol/L Normal 101 - 111 mmol/L Remisol Chem CO2 [Moles/Vol] 24 mmol/L Normal 21 - 31 mmol/L Remis ol Chem Creatinine [Mass/Vol] 1.1 mg/dL Normal 0.5 - 1.3 mg/dL Remisol Chem eGFR 68 mL/min/1.73 m2 Normal >=59mL/min /1.73 m2 Remisol Chem Globulin (S) [Mass/Vol] 2.3 g/dL Normal 1.4 - 4.0 gm/dL Remisol Chem Glucose [Mass/Vol] 143 mg/dL Normal 55 - 199 mg/dL Re misol Chem Magnesium [Mass/Vol] 2.2 mg/dL Normal 1.3 - 2.4 mg/dL Remisol Chem Potassium [Moles/Vol] 4.7 mmol/L Normal 3.5 - 5.3 mmol/L Remisol Chem Protein [Mass/Vol] 6.0 g/dL Normal 6.0 - 7.8 gm/dL R emisol Chem Sodium [Moles/Vol] 139 mmol/L Normal 135 - 145 mmol/L Remisol Chem Troponin HS 8.10 pg/mL Low 15.90 - 38.40 pg/mL [facility] Comment on above: Interpretive Data: T he 95% CI (Confidence Interval) PPV (Positive Predictive Value) for myocardial infarction in females is 38 pg/mL, in males 51 pg/mL. The results should be used in conjunction with clinical conditions of myocardial infarction. (Access High Sensitivity Troponin I Instructions For Use, Radha [place], April 2018) Urea nitrogen [Mass/Vol] 54 mg/dL High 5 - 21 mg/dL Remisol Chem Urea nitrogen/Creatinine [Mass ratio] 49 mg/mg High 10 - 20 Remisol Chem COAGULATIONOrdered By: Cyndi Raza on 03-08-2024 aPTT Coag (PPP) [Time] 28.7 s Normal 25.1 - 36.5 second(s) [facility] Comment on above: Interpretive Data: Mirza mayermeter 15 days - 4 weeks 1 - 5 months 6 - 11 months 1 - 5 years 6 - 10 years 11 - 17 years PTT Mean: 35.4 (27.6-45.6) Mean: 33.5 (24.8-40.7) Mean: 32.4 (25.1-40.7) Mean: 31.6 (24.0-39.2) Mean: 31.6 (26.9-38.7) Mean: 31.0 (24.6-38.4) Pediatric Reference ranges were obtained from a study by Zach Thomason et al. prepared from 1437 samples obtained at 7 different centers using the same coagulation reagent and instrumentation as [facility]. Currently there are no coagulation studies available worldwide for children to 14 days, and no normal ranges. Heparin therapeutic range (represented by Anti-Factor Xa activity of 0.2 - 0.4 U/mL) corresponds to PTT of 56.6 - 109.0 sec. INR Coag (PPP) [Relative time] 1.13 {INR} Invalid Interpretation Code [facility] Comment on above: Interpretive Data: I NR results are specifically intended to assess patients stabilized on long-term Anticoagulation therapy suggested INR s Less Intensive Anticoagulation 2.0 3.0 Conventional Range 3.0 4.5 PT Coag (PPP) [Time] 12.7 s High 9.4 - 12.5 second(s) [facility] Comment on above: Interpretive Data: 1 5 days - 4 weeks 1 - 5 months 6 -11 months 1 5 years 6 10 years 11 -17 years Mean: 11.2 (9.5 12.6) Mean: 11.0 (9.7 12.8) Mean: 11.0 (9.8 13.0) Mean: 11.3 (9.9 13.4) Mean: 11.7 (10.0 14.6) Mean: 11.8 (10.0 - 14.1) Pediatric Reference ranges were obtained from a study by Zach Thomason et al. prepared from 1437 samples obtained at 7 different centers using the same coagulation reagent and instrumentation as [facility]. Currently there are no coagulation studies available worldwide for children to 14 days, and no normal ranges. Consent for Treatmenton 02-22 Consent for Treatment [id number] Normal [facility] Consultation Noteon 03-08-20 Consultation Note Chief Complaint Pt reports he had one episode of vomiting with blood in it around 2330 last night. Increase in flatulence but no abd pain/ blood in stools. ASA 81 daily. denies hx of ulcers, denies hx of alcohol intake. reports increase in weakness. Reason for Consultation Hematemesis History of Present Illness 78-year-old male with history of coronary artery disease status postcardiac stenting performed on November 2017 currently taking only a baby aspirin for home medication presents with episode of hematemesis x 2 witnessed by his . Patient denies any other blood thinner use but did report epigastric abdominal pain and bloating leading up to the episodes where he vomited blood. He denies melena hematochezia currently states that he is not having any abdominal pain right now and has not thrown up since last night. Denies any previous of abdominal surgery. Review of Systems Negative other than stated above Physical Exam Vitals & Measurements T: 36.4 ?C(Oral) HR: 86(Monitored) RR: 14 BP: 145/84 SpO2: 98% HT: 167.64 cm WT: 92.4 kg Abdomen soft nontender nondistended Assessment/Plan 78-year-old male with hematemesis history of aspirin use 1. Weakness (R53.1: Weakness) 2. Hematemesis (K92.0: Hematemesis) EGD tomorrow morning okay for clear liquid diet today please avoid red dyes and please make patient n.p.o. after midnight 3. Diarrhea (R19.7: Diarrhea, unspecified) Attestation Portions of this record may have been created with voice recognition artificial intelligence software, specifically [employer], [employer] and or [employer]. Substitutions may have occurred due to the inherent limitations of voice recognition and artificial intelligence software. 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 Bradycardia CAD in [place] artery Chronic kidney disease, stage 3a Closed displaced fracture of shaft of right clavicle COVID Dyspnea on exertion Hard of hearing HLD (hyperlipidemia) Hospital discharge follow-up Hx of cardiac catheterization Mild diastolic dysfunction Mild persistent asthma without complication Primary hypertension Renal stone TIA on medication Ureteral stone with hydronephrosis Vitamin D deficiency Historical No qualifying data Procedure/Surgical History Cystoscopic laser lithotripsy of ureteric calculus (05/24/2023), ESWL of kidney (05/03/2023), Cystoscopic insertion of ureteric stent (04/07/2023), Placement of stent in cardiac conduit (11/2017), Colonoscopy (2017), Carpal tunnel syndrome of left wrist, Carpal tunnel syndrome of right wrist, Kidney stone. Medications Inpatient No active inpatient medications Home Aspir 81, 81 mg, Oral, Daily D3, 125 mcg, Oral, Daily isosorbide mononitrate 30 mg ER Tab, 30 mg= 1 tab(s), Oral, qAM Lipitor 40 mg Tab, 40 mg= 1 tab(s), Oral, Daily, Not taking: patient takes simvastatin Lopressor, 50 mg (take one- half tablet), Oral, BID simvastatin, 10 mg, Oral, Daily Allergies No Known Medication Allergies Social History Alcohol - Denies Alcohol Use, 01/17/2022 Substance Abuse - Denies Substance Abuse, 01/17/2022 Tobacco Never (less than 100 in lifetime) Tobacco Use:. Never Smokeless Tobacco Use:. Household tobacco concerns: No., 12/21/2023 Family History Diabetes mellitus type 2: Father. [...] SARS-CoV-2 (COVID-19) Ad26 vaccine 11/30/2020 Recorded Normal [facility] Comment on above: Result Comment: Elec tronically Signed By: Jason DELONG, Honorio Walker.br\Date and Time Signed: 03/08/24 11:11 EDT ED Clinical Summaryon 2023 ED Clinical Summary (Inserted Image. Margarita ble to display) [address] [address] ED Clinical Summary Person Information Name: [place] CORRIGAN [place] Age: 78 Years : 1945 Sex: Male Language: Japanese PCP: Adrián DELONG, Betina Anna Marital Status: Visit Id: Visit Reason: Weakness or fatigue; Diarrhea; Vomiting; Spitting up blood, D/N/V Speciality: Acuity: 2 Enc Type: Observation Med Service: Medical Arrival: 03/08/2024 07:22:36 Discharge: LOS: 000 04:42 Checkin: 03/08/2024 07:22:36 Checkout: 03/08/2024 12:04:30 Dispo Type: Admitted as IP to this [facility] EVENTS: Event Name Event Status Request Date/Time Start Date/Time Complete Date/Time Arrive Complete 03/08/2024 07:22:36 03/08/2024 07:22:36 03/08/2024 07:22:36 Document Home Meds Request 03/08/2024 07:22:36 Triage Complete 03/08/2024 07:22:36 03/08/2024 07:32:05 03/08/2024 07:32:05 Bed Assign Complete 03/08/2024 07:25:51 03/08/2024 07:25:51 03/08/2024 07:25:51 Dr Exam Complete 03/08/2024 07:25:51 03/08/2024 07:33:40 03/08/2024 07:33:40 RN Exam Complete 03/08/2024 07:25:51 03/08/2024 07:39:22 03/08/2024 07:39:22 Registration Complete 03/08/2024 07:33:40 03/08/2024 09:02:13 03/08/2024 09:02:13 EKG Complete 03/08/2024 07:35:38 03/08/2024 07:54:30 Meds Admin Complete 03/08/2024 07:47:03 03/08/2024 08:03:54 Pending Labs Collected 03/08/2024 07:47:03 Lab Complete 03/08/2024 07:47:03 03/08/2024 09:36:58 Blood Collect Request 03/08/2024 07:47:03 Meds Admin Complete 03/08/2024 07:52:31 03/08/2024 08:03:54 Pending Labs Complete 03/08/2024 08:02:54 03/08/2024 08:02:54 03/08/2024 09:36:58 Lab Complete 03/08/2024 08:02:54 03/08/2024 08:02:54 03/08/2024 09:36:58 Reg Complete Request 03/08/2024 09:02:13 Reg Bed Request Complete 03/08/2024 09:02:13 03/08/2024 09:02:13 03/08/2024 09:02:13 Bed Request Request 03/08/2024 10:06:44 Reg Bed Request Complete 03/08/2024 10:06:44 03/08/2024 10:10:32 03/08/2024 10:10:32 Admit Request 03/08/2024 10:06:44 Patient Care Request 03/08/2024 10:10:33 Patient Care Request 03/08/2024 10:10:33 Medicare Form Request 03/08/2024 10:10:34 Patient Care Request 03/08/2024 10:10:34 Patient Care Request 03/08/2024 10:10:34 Pending Labs Complete 03/08/2024 12:04:24 03/08/2024 12:04:24 03/08/2024 12:04:24 ADDRESS: [address] [place] [id number] PHYS DOC NOTES: MEDICAL INFORMATION: Prescriptions Given: Medications to Continue with No Changes Other Medications aspirin (Aspir 81) 81 Milligram By Mouth every day. atorvastatin (Lipitor 40 mg Tab) 1 Tablets By Mouth every day. Refills: 0. isosorbide mononitrate (isosorbide mononitrate 30 mg ER Tab) 1 Tablets By Mouth once a day (in the morning). Refills: 0. PATIENT EDUCATION INFORMATION: Instructions: Follow up: DIAGNOSIS: 1:Hematemesis; 2:Weakness; 3:Diarrhea; 4:CAD in [place] artery; 5:HLD (hyperlipidemia); 6:Primary hypertension; 7:TIA on medication; 8:Obese; 9:On deep vein thrombosis (DVT) prophylaxis Normal [facility] ED Patient Education Noteon 03-08-2024 ED Patient Education Note Normal [facility] ED Patient Summaryon 024 ED Patient Summary (Inserted Image. Margarita ble to display) [address] [address] Patient Discharge Instructions Person Information Name: JAMAICA CORRIGAN Age: 78 Years Arrival Date: 03/08/2024 07:22:36 Discharge Diagnosis: 1:Hematemesis; 2:Weakness; 3:Diarrhea; 4:CAD in [place] artery; 5:HLD (hyperlipidemia); 6:Primary hypertension; 7:TIA on medication; 8:Obese; 9:On deep vein thrombosis (DVT) prophylaxis Primary Care Physician: Betina Sampson MD Provider Information Primary Provider: Meghan Palomo M.D. Advanced Health Care Technician:None The exam and treatment you received in the Emergency Department were for an urgent problem and are not intended as complete care. It is important that you follow up with a doctor, nurse practitioner, or physician?s patient clerical assistant for ongoing care. If your symptoms become worse or you do not improve as expected and you are unable to reach your usual health care provider, you should return to the Emergency Department. We are available 24 hours a day. JAMAICA CORRIGAN has been given the following list of patient education materials, prescriptions and follow-up instructions: Follow-up Instructions: In the event that this physician does not participate in your insurance network, please consult with your insurance company to find a nearby participating provider. Patient Education Materials: A MESSAGE TO ALL PATIENTS REGARDING OPIOIDS PRESCRIPTION OPIOIDS: WHAT YOU NEED TO KNOW Prescription opioids can be used to help relieve [id number] pain and are often prescribed following a surgery or injury, or for certain health conditions. These medications can be an important part of the treatment but also come with serious risks. It is important to work with your healthcare provider to make sure you are getting the safest, most effective care. WHAT ARE THE RISKS AND SIDE EFFECTS OF OPIOID USE? Prescription opioids carry serious risks of addiction and overdose, especially with prolonged use. An opioid overdose, often marked by slowed breathing, can cause sudden . The use of prescription opioids can have a number of side effects as well, even when taken as directed: ? Tolerance?meaning you might need to take more of the medication for the same pain relief ? Physical dependence?meaning you have symptoms of withdrawal when a medication is stopped ? Increased sensitivity to pain ? Constipation ? Nausea, vomiting, and dry mouth ? Sleepiness and dizziness ? Confusion ? Depression ? Low levels of testosterone that can result in lower sex drive, energy, and strength ? Itching and sweating RISKS ARE GREATER WITH: ? History of drug misuse, substance use disorder, or overdose ? Mental health conditions (such as depression or anxiety) ? Sleep apnea ? Older age (65 years and older) ? Avoid alcohol while taking prescription opioids. Also, unless specifically advised by your health care provider, medications to avoid include: ? Benzodiazepines (such as Xanax or Valium) ? Muscle relaxants (such as Soma or Flexeril) ? Hypnotics (such as Ambien or Lunesta) ? Other prescription opioids KNOW YOUR OPTIONS Talk to your health care provider about ways to manage your pain that don?t involve prescription opioids. Some of these options may actually work better and have fewer risks and side effects. Options may include: ? Pain relievers such as acetaminophen, ibuprofen, and naproxen ? Some medication that are also used for depression or seizures ? Physical therapy and exercise ? Cognitive behavioral therapy, a psychological, goal-directed approach, in which patients learn how to modify physical, behavioral, and emotional triggers of pain and stress. IF YOU ARE PRESCRIBED OPIOIDS FOR PAIN: ? Never take opioids in greater amounts or more often than prescribed. ? Follow up with your primary health care provider. o Work together to create a plan on how to manage your pain. o Talk about ways to help manage your pain that don?t involve prescription opioids. o Talk about any and all concerns and side effects. ? Help prevent misuse and abuse o Never sell or share prescription opioids. o Never use another person?s prescription opioids. ? Store prescription opioids in a secure place and out of reach of others (this may include visitors, children, friends, and family). ? Safely dispose of unused prescription opioids: Find your community drug take-back program or your pharmacy mail-back program, or flush them down the toilet, following guidance from the Food and Drug Administration (www.fda.gov/Drugs/Resour cesForYou). ? Visit www.cdc.gov/drugoverdose to learn about the risks of opioids abuse and overdose. ? If you believe you may be struggling with addiction, tell your health md do resident urgent care and ask for guidance or call [facility]?S National Helpline at 1-312-014-YGQO. r Source: Depart (more content not included)... Normal [facility] Realtime Games Education Videoon Realtime Games Education Video Patient Yes Avoiding Infections in the Hospital Normal [facility] HEMATOLOGYOrdered By: SYSTEM SYSTEM on 03-08-2024 Basophils/100 WBC (Bld) 0.6 % Normal 0.0 - 2.0 % Remisol Heme Basophils/Leukocyte s Auto (Bld) [Pure # fraction] 0.1 E9/L Normal 0.0 - 0.2 E9/L Remisol Heme Eosinophils (Bld) [#/Vol] 0.0 E9/L Normal 0.0 - 0.5 E9/L Remisol Heme Eosinophils/100 WBC (Bld) 0.1 % Normal 0.0 - 8.0 % Remisol Heme Erythrocyte distribution width (RBC) [Ratio] 13.6 % Normal 10.9 - 14.2 % Remisol Heme Hematocrit (Bld) [Volume fraction] 38.4 % Normal 37.7 - 49.0 % Remisol Heme Hemoglobin (Bld) [Mass/Vol] 13.2 g/dL Low 13.5 - 17.5 gm/dL Remisol Heme Lymphocytes (Bld) [#/Vol] 1.0 E9/L Normal 1.0 - 4.0 E9/L Remisol Heme Lymphocytes/100 WBC (Bld) 10.2 % Low 14.0 - 50.0 % Remisol Heme MCH (RBC) [Entitic mass] 31.5 pg Normal 27.0 - 34.0 pg Remisol Heme MCHC (RBC) [Mass/Vol] 34.4 g/dL Normal 31.4 - 36.0 gm/dL Remisol Heme MCV (RBC) [Entitic vol] 91.7 fL Normal 80.0 - 100.0 fL Remisol Heme Monocytes (Bld) [#/Vol] 0.6 E9/L Normal 0.2 - 1.0 E9/L Remisol Heme Monocytes/100 WBC (Bld) 5.9 % Normal 4.0 - 14.0 % Remisol Heme Neutrophils (Bld) [#/Vol] 8.1 E9/L High 2.0 - 7.5 E9/L Remisol Heme Neutrophils/100 WBC (Bld) 83.2 % High 36.0 - 75.0 % Remisol Heme Platelet 175.0 E9/L Normal 150.0 - 500.0 E9/L Remisol Heme Platelet mean volume (Bld) [Entitic vol] 8.2 fL Normal 6.4 - 10.8 fL Remisol Heme RBC (Bld) [#/Vol] 4.2 E12/L Low 4.3 - 5.9 E12/L Re misol Heme WBC corrected for nucl RBC Auto (Bld) [#/Vol] 9.7 E9/L Normal 4.0 - 11.0 E9/L Remisol Heme Hep Func Panelon 03-08-2024 Albumin [Mass/Vol] 3.7 g/dL Normal 3.3-5.0 [facility] Comment on above: Performed By: #### 2 [id number] #### [facility] [address] [place] [address] Albumin/Globulin (S) [Mass conc ratio] 1.6 Normal 1.1-2.2 [facility] Comment on above: Performed By: #### 2 [id number] #### [facility] [address] [place] [address] ALP [Catalytic activity/Vol] 43 Int._Unit/L Normal 21-98 [facility] Comment on above: Performed By: #### 2 [id number] #### [facility] [address] [place] [address] ALT No additional P-5'-P [Catalytic activity/Vol] 19 Int._Unit/L Normal 6-46 [facility] Comment on above: Performed By: #### 2 [id number] #### [facility] [address] [place] [address] AST [Catalytic activity/Vol] 16 Int._Unit/L Normal 5-43 [facility] Comment on above: Performed By: #### 2 [id number] #### [facility] [address] [place] [address] Bilirubin [Mass/Vol] 0.6 mg/dL Normal 0.0-1.1 [facility] Comment on above: Performed By: #### 2 [id number] #### [facility] [address] [place] [address] Bilirubin.direct [Mass/Vol] 0.1 mg/dL Normal 0.0-0.4 [facility] Comment on above: Performed By: #### 2 [id number] #### [facility] [address] [place] [address] Bilirubin.indirect [Mass or moles/Vol] 0.5 mg/dL Normal 0.1-0.9 [facility] Comment on above: Performed By: #### 2 [id number] #### [facility] [address] [place] [address] Globulin (S) [Mass/Vol] 2.3 g/dL Normal 1.4-4.0 [facility] Comment on above: Performed By: #### 2 [id number] #### [facility] [address] [place] [address] Protein [Mass/Vol] 6.0 g/dL Normal 6.0-7.8 [facility] Comment on above: Performed By: #### 2 [id number] #### [facility] [address] [place] [address] MICRO OTHER TESTSOrdered By: Rhoda Vega on 03-08-2024 Occult blood panel (Stl) Positive *ABN* (03/08/24 8:57 AM) Invalid Interpretation Code Negative [facility] Man Sero Magnesiumon 03-08-2024 Magnesium [Mass/Vol] 2.2 mg/dL Normal 1.3-2.4 [facility] Comment on above: Performed By: #### 2 [id number] #### [facility] [address] [place] [address] Monitor Recordon 03-08-2024 Monitor Record [id number] Normal [facility] PT & PTTon 03-08-2024 aPTT Coag (PPP) [Time] 28.7 second(s) Normal 25.1-36.5 [facility] Comment on above: Result Comment: Para meter 15 days - 4 weeks 1 - 5 months 6 - 11 months 1 - 5 years 6 - 10 years 11 - 17 years PTT Mean: 35.4 (27.6-45.6) Mean: 33.5 (24.8-40.7) Mean: 32.4 (25.1-40.7) Mean: 31.6 (24.0-39.2) Mean: 31.6 (26.9-38.7) Mean: 31.0 (24.6-38.4) Pediatric Reference ranges were obtained from a study by Zach Thomason et al. prepared from 1437 samples obtained at 7 different centers using the same coagulation reagent and instrumentation as [facility]. Currently there are no coagulation studies available worldwide for children to 14 days, and no normal ranges. Heparin therapeutic range (represented by Anti-Factor Xa activity of 0.2 - 0.4 U/mL) corresponds to PTT of 56.6 - 109.0 sec. Performed By: #### 1 [id number] #### [facility] [address] [place] [address] INR Coag (PPP) [Relative time] 1.13 {INR} Invalid Interpretation Code [facility] Comment on above: Result Comment: INR results are specifically intended to assess patients stabilized on long-term Anticoagulation therapy suggested INR?s ?Less Intensive Anticoagulation? 2.0 ? 3.0 Conventional Range 3.0 ? 4.5 Performed By: #### 1 [id number] #### [facility] [address] [place] [address] PT Coag (PPP) [Time] 12.7 second(s) High 9.4-12.5 [facility] Comment on above: Result Comment: 15 d ays - 4 weeks 1 - 5 months 6 -11 months 1 ? 5 years 6 ? 10 years 11 -17 years Mean: 11.2 (9.5 ? 12.6) Mean: 11.0 (9.7 ? 12.8) Mean: 11.0 (9.8 ? 13.0) Mean: 11.3 (9.9 ? 13.4) Mean: 11.7 (10.0 ? 14.6) Mean: 11.8 (10.0 - 14.1) Pediatric Reference ranges were obtained from a study by Zach Thomason et al. prepared from 1437 samples obtained at 7 different centers using the same coagulation reagent and instrumentation as [facility]. Currently there are no coagulation studies available worldwide for children to 14 days, and no normal ranges. Performed By: #### 1 [id number] #### [facility] [address] [place] [address] Stl Oclt Bldon 03-08-2024 Occult blood panel (Stl) Positive Abnormal Negative [facility] Comment on above: Performed By: #### 2 [id number] #### [facility] [address] [place] [address] Troponinon 03-08-2024 Troponin HS 8.10 pg/mL Low 15.90-38.40 [facility] Comment on above: Result Comment: The 95% CI (Confidence Interval) PPV (Positive Predictive Value) for myocardial infarction in females is 38 pg/mL, in males 51 pg/mL. The results should be used in conjunction with clinical conditions of myocardial infarction. (Access High Sensitivity Troponin I Instructions For Use, Radah Angelina, April 2018) Performed By: #### 2 [id number] #### [facility] [address] [place] [address] eGFRon 03-08-2024 eGFR 68 mL/min/1.73 m2 Normal >=59 [facility] Comment on above: Order Comment: Order added by Discern Expert. Performed By: #### 1 [id number] #### [facility] [address] [place] [address] Office Visiton 03-07-2024 Follow-up visit [id number] [place] Corrigan 1945 M Date Provider Department Center 03/07/2024 ANTONIO SALMERON CATHERINE Rehman Anna No family history on file Level of Service:05957 [place] OFFICE/OUTPATIENT ESTABLISHED MOD MDM 30 MIN Normal [facility] Population Health 02-15-20 Population Health Case Information Case Priority: None Programs: -- Referral Source: Community Manager Referral Reason: Disease management Case Type: Chronic Care Management Risk Score: -- Case Status: Active (January 30, 2024) Date Assigned: December 13, 2023 Assigned By: Tha Khalil Date Enrolled: December 25, 2023 Assigned Primary Personnel: Tha Khalil Assigned Secondary Personnel: -- Case Physician: Betina Sampson MD Problems Ongoing 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 Bradycardia CAD in [place] artery Chronic kidney disease, stage 3a Closed displaced fracture of shaft of right clavicle COVID Dyspnea on exertion Hard of hearing HLD (hyperlipidemia) Hospital discharge follow-up Hx of cardiac catheterization Mild diastolic dysfunction Mild persistent asthma without complication Primary hypertension Renal stone TIA on medication Ureteral stone with hydronephrosis Vitamin D deficiency Historical No qualifying data Procedure/Surgical History Cystoscopic laser lithotripsy of ureteric calculus (05/24/2023), ESWL of kidney (05/03/2023), Cystoscopic insertion of ureteric stent (04/07/2023), Placement of stent in cardiac conduit (11/2017), Colonoscopy (2017), Carpal tunnel syndrome of left wrist, Carpal tunnel syndrome of right wrist, Kidney stone. Home Medications Aspir 81, 81 mg, Oral, Daily D3, 125 mcg, Oral, Daily isosorbide mononitrate 30 mg ER Tab, 30 mg= 1 tab(s), Oral, qAM Lipitor 40 mg Tab, 40 mg= 1 tab(s), Oral, Daily, Not taking: patient takes simvastatin Lopressor, 50 mg (take one- half tablet), Oral, BID simvastatin, 10 mg, Oral, Daily Allergies No Known Medication Allergies Social History Alcohol - Denies Alcohol Use, 01/17/2022 Substance Abuse - Denies Substance Abuse, 01/17/2022 Tobacco Never (less than 100 in lifetime) Tobacco Use:. Never Smokeless Tobacco Use:. Household tobacco concerns: No., 12/21/2023 Family History Diabetes mellitus type 2: Father. Screenings and Assessments 12/25/23 09:55:00 Result Name Value Comment Phone Call Monitoring Consent Agreed to continue call Phone Verification Patient Information Full name, street address and date of verified CM Program Enrollment Provides verbal consent for enrollment CCM Program Enrollment Verbally agreed to receive CCM services CCM Written Consent Written consent in progress CCM Verbal Consent By Self 12/25/23 09:00:00 Result Name Value Comment Rate Your Physical Health Good CM Hearing Evaluation Hearing difficulty at level of conversation CM Vision Evaluation Vision impairment, but managed through assistive devices CM Speech Communication Communicates independently CM Sensory Perception No sensory perception impairment CM Fine, Gross Motor Skills No impairment musculoskeletal, fine, gross motor development General Symptoms None Respiratory Symptoms None Cardiovascular Symptoms None GI Symptoms None Genitourinary Symptoms None Urinary Elimination Voiding, no difficulties Feeding Tube Type None Skin Symptoms None Wound Type None Orientation Assessment Oriented x 4 HIPPA Verified Type of Contact In person at home Information Given by Self CM Preferred Spoken Language Japanese CM Preferred Written Language Japanese Preferred Communication Mode Verbal Ability to Read/Write Able to read, Able to write Preferred Salutation MrLeobardo Telemarketer Supervisor Called No Preferred Method of Contact Cell Cell Best Time to Visit or Contact 7-10 am Appointment Reminders Phone, Other secured messaging Preferred Way to Send PHI Other secured messaging Able to Read Japanese Able to read Japanese Learning Style Pref Patient Demonstration Learning Style Pref Parent/Guardian Demonstration Teaching Method Demonstration Barriers to Learning Hearing deficit repeated several questions to patient as he had difficult time deciphering some words Cognitive Deficit No Response to Current Year Correct Response to Current Month Correct Response to Current Time Correct Count Backward 20 to 1 Correct State Months in Reverse Order Correct Repeat Memory Phrase Correct Lives In Split level home Number in Household 2 Sleeping Arrangement Shares bed Support System Spouse/Significant other, Family member(s) Primary Ironer Or Presser of Home Medication Self Current DME at Home No Motivated to (more content not included)... Normal [facility] Physician Referralon 024 Physician Referral [id number] [facility] Population Healthon 12-25-19 24 Population Health Case Information Case Priority: None Programs: -- Referral Source: Community Manager Referral Reason: Disease management Case Type: Chronic Care Management Risk Score: -- Case Status: Enrolled (December 25, 2023) Date Assigned: December 13, 2023 Assigned By: Tha Khalil Date Enrolled: December 25, 2023 Assigned Primary Personnel: Tha Khalil Assigned Secondary Personnel: -- Case Physician: Betina Sampson MD Problems Ongoing 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 Bradycardia CAD in [place] artery Chronic kidney disease, stage 3a Closed displaced fracture of shaft of right clavicle COVID Dyspnea on exertion Hard of hearing HLD (hyperlipidemia) Hospital discharge follow-up Hx of cardiac catheterization Mild diastolic dysfunction Mild persistent asthma without complication Primary hypertension Renal stone TIA on medication Ureteral stone with hydronephrosis Vitamin D deficiency Historical No qualifying data Procedure/Surgical History Cystoscopic laser lithotripsy of ureteric calculus (05/24/2023), ESWL of kidney (05/03/2023), Cystoscopic insertion of ureteric stent (04/07/2023), Placement of stent in cardiac conduit (11/2017), Colonoscopy (2017), Carpal tunnel syndrome of left wrist, Carpal tunnel syndrome of right wrist, Kidney stone. Home Medications Aspir 81, 81 mg, Oral, Daily D3, 125 mcg, Oral, Daily isosorbide mononitrate 30 mg ER Tab, 30 mg= 1 tab(s), Oral, qAM Lipitor 40 mg Tab, 40 mg= 1 tab(s), Oral, Daily, Not taking: patient takes simvastatin Lopressor, 50 mg (take one- half tablet), Oral, BID simvastatin, 10 mg, Oral, Daily Allergies No Known Medication Allergies Social History Alcohol - Denies Alcohol Use, 01/17/2022 Substance Abuse - Denies Substance Abuse, 01/17/2022 Tobacco Never (less than 100 in lifetime) Tobacco Use:. Never Smokeless Tobacco Use:. Household tobacco concerns: No., 12/21/2023 Family History Diabetes mellitus type 2: Father. Screenings and Assessments 12/25/23 09:55:00 Result Name Value Comment Phone Call Monitoring Consent Agreed to continue call Phone Verification Patient Information Full name, street address and date of verified CM Program Enrollment Provides verbal consent for enrollment CCM Program Enrollment Verbally agreed to receive CCM services CCM Written Consent Written consent in progress CCM Verbal Consent By Self 12/25/23 09:00:00 Result Name Value Comment Rate Your Physical Health Good CM Hearing Evaluation Hearing difficulty at level of conversation CM Vision Evaluation Vision impairment, but managed through assistive devices CM Speech Communication Communicates independently CM Sensory Perception No sensory perception impairment CM Fine, Gross Motor Skills No impairment musculoskeletal, fine, gross motor development General Symptoms None Respiratory Symptoms None Cardiovascular Symptoms None GI Symptoms None Genitourinary Symptoms None Urinary Elimination Voiding, no difficulties Feeding Tube Type None Skin Symptoms None Wound Type None Orientation Assessment Oriented x 4 HIPPA Verified Type of Contact In person at home Information Given by Self CM Preferred Spoken Language Japanese CM Preferred Written Language Japanese Preferred Communication Mode Verbal Ability to Read/Write Able to read, Able to write Preferred Salutation MrLeobardo Telemarketer Supervisor Called No Preferred Method of Contact Cell Cell Best Time to Visit or Contact 7-10 am Appointment Reminders Phone, Other secured messaging Preferred Way to Send PHI Other secured messaging Able to Read Japanese Able to read Japanese Learning Style Pref Patient Demonstration Learning Style Pref Parent/Guardian Demonstration Teaching Method Demonstration Barriers to Learning Hearing deficit repeated several questions to patient as he had difficult time deciphering some words Cognitive Deficit No Response to Current Year Correct Response to Current Month Correct Response to Current Time Correct Count Backward 20 to 1 Correct State Months in Reverse Order Correct Repeat Memory Phrase Correct Lives In Split level home Number in Household 2 Sleeping Arrangement Shares bed Support System Spouse/Significant other, Family member(s) Primary Ironer Or Presser of Home Medication Self Current DME at Home No Motivated (more content not included)... Normal 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 Bradycardia CAD in [place] artery Chronic kidney disease, stage 3a Closed displaced fracture of shaft of right clavicle COVID Dyspnea on exertion Hard of hearing HLD (hyperlipidemia) Hospital discharge follow-up Hx of cardiac catheterization Mild diastolic dysfunction Mild persistent asthma without complication Primary hypertension Renal stone TIA on medication Ureteral stone with hydronephrosis Vitamin D deficiency Historical No qualifying data Procedure/Surgical History Cystoscopic laser lithotripsy of ureteric calculus (05/24/2023), ESWL of kidney (05/03/2023), Cystoscopic insertion of ureteric stent (04/07/2023), Placement of stent in cardiac conduit (11/2017), Colonoscopy (2017), Carpal tunnel syndrome of left wrist, Carpal tunnel syndrome of right wrist, Kidney stone. Medication List Aspir 81, 81 mg, Oral, Daily D3, 125 mcg, Oral, Daily isosorbide mononitrate 30 mg ER Tab, 30 mg= 1 tab(s), Oral, qAM Lipitor 40 mg Tab, 40 mg= 1 tab(s), Oral, Daily, Not taking: patient takes simvastatin Lopressor, 50 mg (take one- half tablet), Oral, BID simvastatin, 10 mg, Oral, Daily Allergies No Known Medication Allergies Goals and Interventions Care Plan Goal: Complications of Hypertension Avoided Start Date: 2023 Target: - - Status: Not met Barriers: - - Comments: - - Intervention Frequency Status Photogrammetric Technician Review educational material - - Not done - - Keep follow up appointments with provider and complete testing as directed - - Not done - - Take Medications as Prescribed - - Not done - - Monitor and keep BP log; at least 3 days per week - - Not done - - Follow low sodium diet - - Not done - - Goal: Complications of Kidney Disease Avoided Start Date: 2023 Target: - - Status: Not met Barriers: - - Comments: - - Intervention Frequency Status Photogrammetric Technician Review educational material - - Not done - - Keep follow up appointments with provider as directed - - Not done - - Complete testing/ blood work as directed per provider - - Not done - - Avoid high sodium, potassium foods such as; bananas, avacados, canned soups, pickled foods, etc... - - - - - - Goal: Complications of Hyperlipidemia avoided Start Date: 2023 Target: - - Status: Not met Barriers: - - Comments: - - Intervention Frequency Status Photogrammetric Technician Review educational material - - Not done - - Keep follow up appointments as scheduled - - Not done - - Take Medications as Prescribed - - Not done - - Complete bloodwork as directed by provider - - Not done - - Maintain active healthy lifestyle and avoid foods high in saturated fats - - Not done - - Goal: CAD complications avoided Start Date: 2023 Target: - - Status: Not met Barriers: - - Comments: - - Intervention Frequency Status Photogrammetric Technician Review educational material - - Not done - - Keep follow up appointments as scheduled and complete testing, bloodwork as directed by provider - - Not done - - Maintain an active healthy lifestyle - - Not done - - Take medications as prescribed - - - - - - Normal [facility] Ambulatory Visit Summaryon 0 12-21-2023 Ambulatory Visit Summary J[place] CORRIGAN :1945 Visit Date:12/21/2023 Ambulatory Visit Instructions Your Diagnosis Ureteral stone with hydronephrosis Tests Performed XR Abdomen 1 View -- Results Pending -- Please visit your patient portal for your results or contact your primary care physician. Your Care Team Attending Physician - Zachary ELAM MD Primary Care Physician - Betina Sampson MD This Is Your Medications List Contact prescribing physician if questions or concerns aspirin (Aspir 81) atorvastatin (Lipitor 40 mg Tab) isosorbide mononitrate (isosorbide mononitrate 30 mg ER Tab) metoprolol (Lopressor 25 mg oral tablet) Procedures Performed Cystoscopic laser lithotripsy of ureteric calculus (05/24/2023), ESWL of kidney (05/03/2023), Cystoscopic insertion of ureteric stent (04/07/2023), Placement of stent in cardiac conduit (11/2017), Colonoscopy (2017), Carpal tunnel syndrome of left wrist, Carpal tunnel syndrome of right wrist, Kidney stone. Discharge Vitals Temperature (Temporal Artery) 36.9 ?C Heart Rate (Peripheral) 69 Respiratory Rate 16 Blood Pressure 139/87 Height 170 cm Height 67 in Weight 91 kg Weight 200.2 lb BMI 31.49 What to do next Scheduled Follow-Up Appointments 2023 10:15 AM EDT With: Betina Sampson MD Where: [facility] [place] Normal [address] [id number]- \.br\ You Need to Schedule the Following Appointments\.b r\ Follow Up with Zachary ELAM MD, URL When: \.br\ Where:\.br\ [facility]\.br\ [place] [address]-\.br\ Medications\.br \ What How Much When Instructions\.b r\ Unchanged aspirin (Aspir 81) 81 Milligram By Mouth Every day Contact prescribing physician if questions or concerns \.br\ Unchanged atorvastatin (Lipitor 40 mg Tab) 1 Tablets By Mouth Every day Contact prescribing physician if questions or concerns \.br\ Unchanged isosorbide mononitrate (isosorbide mononitrate 30 mg ER Tab) 1 Tablets By Mouth Once a day (in the morning) Contact prescribing physician if questions or concerns \.br\ Unchanged metoprolol (Lopressor 25 mg oral tablet) 90 EA, TAKE 1/ 2 (ONE-HALF) TABLET BY MOUTH TWICE DAILY FOR 90 DAYS Contact prescribing physician if questions or concerns \.br\ Allergies\.br\ No Known Medication Allergies\.br\ Problems\.br\ Ongoing - Any problem that you are currently receiving treatment for.\.br\ 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\.br\ Bradycardia\.br \ CAD in [place] artery\.br\ Chronic kidney disease, stage 3a\.br\ Closed displaced fracture of shaft of right clavicle\.br\ COVID\.br\ Dyspnea on exertion\.br\ Hard of hearing\.br\ HLD (hyperlipidemia )\.br\ Hospital discharge follow-up\.br\ Hx of cardiac catheterization \.br\ Mild diastolic dysfunction\.br \ Mild persistent asthma without complication\.b r\ Primary hypertension\.b r\ Renal stone\.br\ TIA on medication\.br\ Ureteral stone with hydronephrosis\ .br\ Vitamin D deficiency\.br\ Patient Survey\.br\ You may receive a survey via text or e-mail asking about your office visit. Please share your experience with us by completing your survey. We appreciate your feedback and thank you for choosing us for your care.\.br\ Education Materials\.br\ Dietary Guidelines to Help Prevent Kidney Stones\.br\ Kidney stones are deposits of minerals and salts that form inside your kidneys. Your risk of developing kidney stones may be greater depending on your diet, your lifestyle, the medicines you take, and whether you have certain medical conditions. Most people can lower their risks of developing kidney stones by following these dietary guidelines. Your dietitian may give you more specific instructions depending on your overall health and the type of kidney stones you tend to develop.\.br\ What are tips for following this plan?\.br\ Reading food labels\.br\ \.br\ ? \.br\ Choose foods with no salt added or low-salt labels. Limit your salt (sodium) intake to less than 1,500 mg a day.\.br\ ? \.br\ Choose foods with calcium for each meal and snack. Try to eat about 300 mg of calcium at each meal. Foods that contain 200?500 mg of calcium a serving include:\.br\ ? \.br\ 8 oz (237 mL) of milk, calcium-fortifi ednon-dairy milk, and calcium-fortifi edfruit juice. Calcium-fortifi ed means that calcium has been added to these drinks.\.br\ ? \.br\ 8 oz (237 mL) of kefir, yogurt, and soy yogurt.\.br\ ? \.br\ 4 oz (114 g) of tofu.\.br\ ? \.br\ 1 oz (28 g) of cheese.\.br\ ? \.br\ 1 cup (150 g) of dried figs.\.br\ ? \.br\ 1 cup (91 g) of cooked broccoli.\.br\ ? \.br\ One 3 oz (85 g) can of sardines or mackerel.\.br\ Most people need 1,000?1,500 mg of calcium a day. Talk to your dietitian about how much calcium is recommended for you.\.br\ Shopping\.br\ ? \.br\ Buy plenty of fresh fruits and vegetables. Most people do not need to avoid fruits and vegetables, even if these foods contain nutrients that may contribute to kidney stones.\.br\ ? \.br\ When shopping for convenience foods, choose:\.br\ ? \.br\ Whole pieces of fruit.\.br\ ? \.br\ Pre-made salads with dressing on the side.\.br\ ? \.br\ Low-fat fruit and yogurt smoothies.\.br\ ? \.br\ Avoid buying frozen meals or prepared deli foods. These can be high in sodium.\.br\ ? \.br\ Look for foods with live cultures, such as yogurt and kefir.\.br\ ? \.br\ Choose high-fiber grains, such as whole-wheat breads, oat bran, and wheat cereals.\.br\ Cooking\.br\ ? \.br\ Do not add salt to food when cooking. Place a salt shaker on the table and allow each person to add their own salt to taste.\.br\ ? \.br\ Use vegetable protein, such as beans, textured vegetable protein (TVP), or tofu, instead of meat in pasta, casseroles, and soups.\.br\ Meal planning\.br\ ? \.br\ Eat less salt, if told by your dietitian. To do this:\.br\ ? \.br\ Avoid eating processed or pre-made food.\.br\ ? \.br\ Avoid eating fast food.\.br\ ? \.br\ Eat less animal protein, including cheese, meat, poultry, or fish, if told by your dietitian. To do this:\.br\ ? \.br\ Limit the number of times you have meat, poultry, fish, or cheese each week. Eat a diet free of meat at least 2 days a week.\.br\ ? \.br\ Eat only one serving each day of meat, poultry, fish, or seafood.\.br\ ? \.br\ When you prepare animal proteins, cut pieces into small portion sizes. For most meat and fish, one serving is about the size of the palm of your hand.\.br\ ? \.br\ Eat at least five servings of fresh fruits and vegetables each day. To do this:\.br\ ? \.br\ Keep fruits and vegetables on hand for snacks.\.br\ ? \.br\ Eat one piece of fruit or a handful of berries with breakfast.\.br\ ? \.br\ Have a salad and fruit at lunch.\.br\ ? \.br\ Have two kinds of vegetables at dinner.\.br\ ? \.br\ You may be told to limit foods that are high in a substance called oxalate. These include:\.br\ ? \.br\ Spinach (cooked), rhubarb, beets, sweet potatoes, and Malagasy chard.\.br\ ? \.br\ Peanuts.\.br\ ? \.br\ Potato chips, beninese fries, and baked potatoes with skin on.\.br\ ? \.br\ Nuts and nut products.\.br\ ? \.br\ Chocolate.\.br\ ? \.br\ If you regularly take a diuretic medicine, make sure to eat at least 1 or 2 servings of fruits or vegetables that are high in potassium each day. These include:\.br\ ? \.br\ Avocado.\.br\ ? \.br\ Banana.\.br\ ? \.br\ [place], prune, carrot, or tomato juice.\.br\ ? \.br\ Baked potato.\.br\ ? \.br\ Cabbage.\.br\ ? \.br\ Beans and split peas.\.br\ Lifestyle\.br\ \.br\ ? \.br\ Drink enough fluid to keep your urine pale yellow. This is the most important thing you can do. Spread your fluid intake throughout the day.\.br\ ? \.br\ If you drink alcohol:\.br\ ? \.br\ Limit how much you have to:\.br\ ? \.br\ 0?1 drink a day [...] of hard liquor (44 mL).\.br\ ? \.br\ Lose weight if told by your health care provider. Work with your dietitian to find an eating plan and weight loss strategies that work best for you.\.br\ General information\.br \ ? \.br\ Talk to your health care provider and dietitian about taking daily supplements. Depending on your health and the cause of your kidney stones, you may be told:\.br\ ? \.br\ Do not take high-dose supplements of vitamin C (1,000 mg a day or more).\.br\ ? \.br\ To take a calcium supplement.\.br \ ? \.br\ To take a daily prob [facility] Patient Educationon 12-21-19 24 Patient Education Nephrology Dietary Guidelines to Help Prevent Kidney Stones Kidney stones are deposits of minerals and salts that form inside your kidneys. Your risk of developing kidney stones may be greater depending on your diet, your lifestyle, the medicines you take, and whether you have certain medical conditions. Most people can lower their risks of developing kidney stones by following these dietary guidelines. Your dietitian may give you more specific instructions depending on your overall health and the type of kidney stones you tend to develop. What are tips for following this plan? Reading food labels ? Choose foods with no salt added or low-salt labels. Limit your salt (sodium) intake to less than 1,500 mg a day. ? Choose foods with calcium for each meal and snack. Try to eat about 300 mg of calcium at each meal. Foods that contain 200?500 mg of calcium a serving include: ? 8 oz (237 mL) of milk, vridtyi-gypmucnnpxey-ihbe y milk, and calcium-fortifiedfruit juice. Calcium-fortified means that calcium has been added to these drinks. ? 8 oz (237 mL) of kefir, yogurt, and soy yogurt. ? 4 oz (114 g) of tofu. ? 1 oz (28 g) of cheese. ? 1 cup (150 g) of dried figs. ? 1 cup (91 g) of cooked broccoli. ? One 3 oz (85 g) can of sardines or mackerel. Most people need 1,000?1,500 mg of calcium a day. Talk to your dietitian about how much calcium is recommended for you. Shopping ? Buy plenty of fresh fruits and vegetables. Most people do not need to avoid fruits and vegetables, even if these foods contain nutrients that may contribute to kidney stones. ? When shopping for convenience foods, choose: ? Whole pieces of fruit. ? Pre-made salads with dressing on the side. ? Low-fat fruit and yogurt smoothies. ? Avoid buying frozen meals or prepared deli foods. These can be high in sodium. ? Look for foods with live cultures, such as yogurt and kefir. ? Choose high-fiber grains, such as whole-wheat breads, oat bran, and wheat cereals. Cooking ? Do not add salt to food when cooking. Place a salt shaker on the table and allow each person to add their own salt to taste. ? Use vegetable protein, such as beans, textured vegetable protein (TVP), or tofu, instead of meat in pasta, casseroles, and soups. Meal planning ? Eat less salt, if told by your dietitian. To do this: ? Avoid eating processed or pre-made food. ? Avoid eating fast food. ? Eat less animal protein, including cheese, meat, poultry, or fish, if told by your dietitian. To do this: ? Limit the number of times you have meat, poultry, fish, or cheese each week. Eat a diet free of meat at least 2 days a week. ? Eat only one serving each day of meat, poultry, fish, or seafood. ? When you prepare animal proteins, cut pieces into small portion sizes. For most meat and fish, one serving is about the size of the palm of your hand. ? Eat at least five servings of fresh fruits and vegetables each day. To do this: ? Keep fruits and vegetables on hand for snacks. ? Eat one piece of fruit or a handful of berries with breakfast. ? Have a salad and fruit at lunch. ? Have two kinds of vegetables at dinner. ? You may be told to limit foods that are high in a substance called oxalate. These include: ? Spinach (cooked), rhubarb, beets, sweet potatoes, and Malagasy chard. ? Peanuts. ? Potato chips, beninese fries, and baked potatoes with skin on. ? Nuts and nut products. ? Chocolate. ? If you regularly take a diuretic medicine, make sure to eat at least 1 or 2 servings of fruits or vegetables that are high in potassium each day. These include: ? Avocado. ? Banana. ? [place]ip[place], prune, carrot, or tomato juice. ? Baked potato. ? Cabbage. ? Beans and split peas. Lifestyle ? Drink enough fluid to keep your urine pale yellow. This is the most important thing you can do. Spread your fluid intake throughout the day. ? If you drink alcohol: ? Limit how much you have to: ? 0?1 drink a day for women who are not . ? 0?2 drinks a day for men. ? Know how much alcohol is in your drink. In the [place] one drink equals one 12 oz bottle of beer (355 mL), one 5 oz glass of wine (148 mL), or one 1? oz glass of hard liquor (44 mL). ? Lose weight if told by your health care provider. Work with your dietitian to find an eating plan and weight loss strategies that work best for you. General information ? Talk to your health care provider and dietitian about taking daily supplements. Depending on your health and the cause of your kidney stones, you may be told: ? Do not take high-dose supplements of vitamin C (1,000 mg a day or more). ? To take a calcium supplement. ? To take a daily probiotic supplement. ? To take other supplements such as magnesium, fish oil, or vitamin B6. ? Take rcgo-zfn-ivmhjqy and prescription medicines only as told by your health care provider. These include supplements. What foods sh (more content not included)... Normal [facility] Urology Office/Clinic Noteon 12-21-2023 Urology Office/Clinic Note Chief Complaint F/U w/ KUB previous RWR pt. HPI Staff Pt initially seen by PRW 04/07/23 @ [facility] for Hospital Consult due to obstructing Rt Ureteral Calculus. He then underwent Cysto/Rt Stent Placement 04/07/23. Since then he has had a couple other stone procedures. 05/03/23- Rt ESWL 05/24/23- Rt Laser Litho/Rt stent removal & Basket Extraction Stone Analysis not completed due to specimen being wet KUB 12/18/23 Pt denies pain/burning when urination, no visible blood History of Present Illness Tests reviewed: reviewed UA, ER records, CT, stone analysis, and KUB. I have reviewed the previous health record information and history for this patient from external provider and Dr. Elam. I have reviewed and verified the staff HPI to be accurate for this encounter. There have been no associated fever, chills, flank pain, or blood in the urine. Denies any urinary infections since last encounter. Review of Systems PHQ Score Initial Depression Screen Score: 0 SCORE ROS - Provider Constitutional: denies weight loss, denies hot flashes. Eyes: denies eye problems. Gastrointestinal: denies nausea, denies vomiting. Cardiovascular: denies chest pain or angina. Integumentary: no dryness Musculoskeletal: denies musculoskeletal symptoms. ENMT: denies otolaryngeal symptoms. Respiratory: no shortness of breath. Heme/Lymph: denies easy bleeding tendency, denies easy bruising tendency. Psychiatric: no confusion, no anxiety. Genitourinary: See HPI. Physical Exam Vitals & Measurements T: 36.9 ?C(Temporal Artery) HR: 69(Peripheral) RR: 16 BP: 139/87 HT: 67 in HT: 170 cm WT: 91 kg WT: 200.2 lb BMI: 31.49 General Appearance: alert, no distress, well nourished, well developed male. Assessment/Plan First time pt ever being seen in office. 1. Ureteral stone with hydronephrosis (N13.2: Hydronephrosis with renal and ureteral calculous obstruction) Pt presented to [facility] ER 04/07/23 with severe right flank pain. CT AP wo IV con 04/07/23 revealed an 8-9 mm right mid to proximal ureteral calculus with ipsilateral hydronephrosis. Urology consulted. S/p cysto with R stent placement 04/07/23. S/p R ESWL without stent replacement 05/24/23. Did not pass any fragments after surgery. Stone analysis 05/24/23 shows 100% ca ox monohydrate. Current KUB 12/18/23 is neg for obvious stones. Large stool burden. UA today shows trace-intact blood. Denies gross hematuria. Denies pain. Pt reports he drinks tea. Reports he does not drink enough water. Recommended pt. to increase fluid intake to ten to twelve 16oz bottles a day; preferably water, clear pop, and sugar free lemonade. -Dietary modifications -Follow up in 1 year w/ KUB Follow-up With When Contact Information PAPA DELONG, Zachary Meléndez, [address] [place] [address]- Additional Instructions: 1 yr w/ kub Patient Education Dietary Guidelines to Help Prevent Kidney Stones I, Niesha Her, personally scribed for Dr. Elam on 12/21/2023 11:54:00. . Documentation recorded by the scribe, Niesha Her, accurately reflects the services(s) I performed and decisions made by me. Authenticated by Dr. Elam on 12/21/2023 11:58:17. 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 Bradycardia CAD in [place] artery Chronic kidney disease, stage 3a Closed displaced fracture of shaft of right clavicle COVID Dyspnea on exertion Hard of hearing HLD (hyperlipidemia) Hospital discharge follow-up Hx of cardiac catheterization Mild diastolic dysfunction Mild persistent asthma without complication Primary hypertension Renal stone TIA on medication Ureteral stone with hydronephrosis Vitamin D deficiency Historical No qualifying data [...] Oral, Daily Lopressor 25 mg oral tablet Allergies No Known Medication Allergies Social History Alcohol - Denies Alcohol Use, 01/17/2022 Substance Abuse - Denies Substance Abuse, 01/17/2022 Tobacco Never (less than 100 in lifetime) Tobacco Use:. Never Smokeless Tobacco Use:. Household tobacco concerns: No., 12/21/2023 Family History Diabetes mellitus type 2: Father. Immunizations Vaccine Date Status Comments influenza virus vaccine, inactivated - Not Given Postpone due to refusal influenza virus vaccine, inactivated - Not Given Postpone due to refusal SARS-CoV-2 mRNA (tozinameran 5y-11y) vac - Not Given Pat (more content not included)... Normal [facility] Comment on above: Result Comment: Elec tronically Signed By: Zachary ELAM MD\.br\Date and Time Signed: 12/21/23 11:58 EDT\.br\Electronically Co-Signed By: Niesha Her.br\Date and Time Co-Signed: 12/21/23 11:54 EDT RAD - MISCon 12-19-2023 RAD - MISC [id number] [facility] ED Pat Eduon 12-13-2023 ED Pat Edu Cardiovascular Coronary Artery Disease, Male Coronary artery disease (CAD) is a condition in which the arteries that lead to the heart (coronary arteries) become narrow or blocked. The narrowing or blockage can lead to decreased blood flow to the heart. Prolonged reduced blood flow can cause a heart attack (myocardial infarction, or CT). This condition may also be called coronary [...] these instructions at home: Medicines ? Take obou-wyo-fjpxhtu and prescription medicines only as told by [...] use any (more content not included)... Normal [facility] 12-13-19 [facility] Case Information Case Priority: None Programs: -- Referral Source: Pig Conveyor Operator Referral Reason: Care coordination Case Type: Transition Care Management Risk Score: -- Case Status: Enrolled (November 19, 2023) Date Assigned: November 19, 2023 Assigned By: Tha Khalil Date Enrolled: November 19, 2023 Assigned Primary Personnel: Tha Khalil Assigned Secondary Personnel: -- Case Physician: Betina Sampson MD Problems Ongoing 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 Bradycardia CAD in [place] artery Chronic kidney disease, stage 3a Closed [...] Note TCM#3- Spoke with patient and spouse Vy, on speaker phone. Patient states things are [...] as they have not heard from Dr. Gibson's office. Patient checks BP every now and [...] (min): 8 Outcome: Case discussion Contact Type: photography coordinator Contact Name: Tha Khalil Notes: TCM#3- See tcm note. Created By: Tha Khalil Date: December 06, 2023 Method: Phone call Type: Outbound Duration (min): 2 Outcome: Case discussion Contact Type: photography coordinator Contact Name: Tha Khalil Notes: TCM#2- see tcm note. Created By: Tha Khalil Date: November 20, 2023 Method: Phone call Type: Outbound Duration (min): 9 Outcome: Case discussion Contact Type: photography coordinator Contact Name: Tha Khalil Notes: TCM #1 f/u- spoke with Vy per pt request- see tcm #1 f/u note. Created By: Tha Khalil Date: November 20, 2023 Method: Phone call Type: Outbound Duration (min): 2 Outcome: Left message-person Contact Type: photography coordinator Contact Name: Tha Khalil Notes: Spoke with patient, there was a bad connection, patient to call back, cn number provided. Created By: Tha Khalil Date: November 19, 2023 Method: Phone call Type: Outbound Duration (min): 4 Outcome: Case discussion Contact Type: photography coordinator Contact Name: hTa Khalil Notes: TCM#1- see tcm note. Created By: Tha Khalil [facility] 12-06-19 [facility] Case Information Case Priority: None Programs: -- Referral Source: Pig Conveyor Operator Referral Reason: Care coordination Case Type: Transition Care Management Risk Score: -- Case Status: Enrolled (November 19, 2023) Date Assigned: November 19, 2023 Assigned By: Tha Khalil Date Enrolled: November 19, 2023 Assigned Primary Personnel: Tha Khalil Assigned Secondary Personnel: -- Case Physician: Betina Sampson MD Problems Ongoing 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 Bradycardia CAD in [place] artery Chronic kidney disease, stage 3a Closed [...] Progress Note TCM#2- Spoke with patient spouse Vy, at patient request due to [place]. Spouse states patient has recovered really well. States he is getting around good. Denies patient to have any difficulty breathing. Denies any concerns at this time. Denies need for medications refills, [facility] Patient/spouse deny any further questions or concerns. Communication Events Date: December 06, 2023 Method: Phone call Type: Outbound Duration (min): 2 Outcome: Case discussion Contact Type: photography coordinator Contact Name: Tha Khalil Notes: TCM#2- see tcm note. Created By: Tha Khalil Date: November 20, 2023 Method: Phone call Type: Outbound Duration (min): 9 Outcome: Case discussion Contact Type: photography coordinator Contact Name: Tha Khalil Notes: TCM #1 f/u- spoke with Vy per pt request- see tcm #1 f/u note. Created By: Tha Khalil Date: November 20, 2023 Method: Phone call Type: Outbound Duration (min): 2 Outcome: Left message-person Contact Type: photography coordinator Contact Name: Tha Khalil Notes: Spoke with patient, there was a bad connection, patient to call back, cn number provided. Created By: Tha Khalil Date: November 19, 2023 Method: Phone call Type: Outbound Duration (min): 4 Outcome: Case discussion Contact Type: photography coordinator Contact Name: Tha Khalil Notes: TCM#1- see tcm note. Created By: Tha Khalil [facility] Lab Reportson 12-05-2023 Lab Reports [id number]#1.00TIFF [facility] Ambulatory Visit Summaryon 0 11-29-2023 Ambulatory Visit Summary J[place]ICA CORRIGAN :1945 Visit Date:11/29/2023 Ambulatory Visit Instructions Your Diagnosis Hospital discharge follow-up TIA on medication COVID Non-smoker BMI 32.0-32.9,adult Your Care Team Attending Physician - Betina Sampson MD Primary Care Physician - Ross MD, Betina E. This Is Your Medications List aspirin (Aspir [...] DELONG, Zachary Meléndez Where: [facility] Invalid Interpretation Code [address] [place] [address]- \.br\ Sunday 8:00 AM EDT \.br\ With:\.br\ Where: [facility] Family Medicine [facility] Family Medicine Office/Clini c Noteon 11-29-2023 Family Medicine Office/Clinic Note HPI Staff [place] is a 78 year old male presenting for hospital follow up TCM: Hospital: [facility] Admission date: 11/17/23 Discharge date: 11/18/23 Symptoms [...] Daily, # 90 tab(s), Refills(s) 0, Pharmacy: [facility], 167, cm, 11/29/23 10:50:00 EST, Height/Length Dosing, 96, kg, 11/29/23 10:50:00 EST, Weight Dosing lisinopril, 2.5 mg = 1 tab(s), Oral, Daily, # 90 tab(s), Refills(s) 0, Pharmacy: [facility], 172, cm, 11/13/22 8:47:00 EST, Height/Length Dosing, 95.1, kg, 11/13/22 9:01:00 EST, Weight Dosing Follow-up No qualifying data available Patient Education BMI for Adults 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 Bradycardia CAD in [place] artery Chronic kidney disease, stage 3a Closed [...] SARS-CoV-2 (COVID-19) Ad26 vaccine 11/30/2020 Recorded Normal [facility] Comment on above: Result Comment: Elec tronically Signed By: Adrián DELONG, Betina Verde\Date and Time Signed: 11/29/23 11:04 EST Pathology Noteon 11-29-2023 Pathology Note [id number] Normal [facility] Patient Educationon 11-29-19 Patient Education Nutrition BMI for Adults What [...] numbers. This can be done either in [place] ([place] or metric measurements. Note that charts and online BMI calculators are available to help you find your BMI quickly and easily without having to do these calculations yourself. To calculate your BMI in Japanese ([place] measurements: 1. Measure your weight in [...] for Disease Control and Prevention: www.cdc.gov ? [place] Heart Association: www.heart.org ? National Heart, Lung, and Blood [place]: www.nhlbi.nih.gov Summary ? Body mass index (BMI) is a number that is calculated from a person's weight and height. ? BMI may help estimate how much of a person's weight is composed of fat. BMI can help identify those who may be at higher risk for certain medical problems. ? BMI can be measured using Japanese measurements or metric measurements. ? BMI charts are used to identify whether you are underweight, normal weight, overweight, or obese. This information is not intended to replace advice given to you by your health care provider. Make sure you discuss any questions you have with your health care provider. Document Revised: 06/02/2020 Document Reviewed: 04/09/2020 [employer] Patient Education ? 2022 [employer] [facility] ED Note-Physicianon 11-21-19 24 ED Note-Physician [id number] [facility] RAD - CT Reporton 11-21-2023 RAD - CT Report [id number] Normal [facility] RAD - CT Report [id number]#1.00TIFF Normal [facility] RAD - MISCon 11-21-2023 RAD - MISC [id number] Normal [facility] RAD - MRI Reporton RAD - MRI Report [id number] Normal [facility] Population Healthon 11-20-19 [facility] Case Information Case Priority: None Programs: -- Referral Source: Pig Conveyor Operator Referral Reason: Care coordination Case Type: Transition Care Management Risk Score: -- Case Status: Enrolled (November 19, 2023) Date Assigned: November 19, 2023 Assigned By: Tha Khalil Date Enrolled: November 19, 2023 Assigned Primary Personnel: Tha Khalil Assigned Secondary Personnel: -- Case Physician: Betina Sampson MD Ongoing 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 Bradycardia CAD in [place] artery Chronic kidney disease, stage 3a Closed [...] Note TCM#1- Follow up- Spoke with spouse Vy per pt request- answers provided to the following questions. Are you having any stomach upset, diarrhea or constipation? none How are you sleeping? sleeping okay per spouse, Vy Are you having any pain? none Patient states he is doing a lot better. Note he was unable to obtain paxlovid RX d/t cost $1,700. Patient spouse reached out to [employer] on 11/19 and they have sent the rx overnight. Patient has not received Rx at this time. Spouse is going to make follow up calls yet this afternoon. Patient/ spouse to call back if any issues obtaining paxlovid. Medications reconciled with patient spouse, EHR, and D/C list. Reviewed the following appointment with patient/ spouse: PAT f/u 11/[address] Sampson at 1100. Patient denies any further questions or concerns. Communication Events Date: November 20, 2023 Method: Phone call Type: Outbound Duration (min): 9 Outcome: Case discussion Contact Type: photography coordinator Contact Name: Tha Khalil Notes: TCM #1 f/u- spoke with Vy per pt request- see tcm #1 f/u note. Created By: Tha Khalil Date: November 20, 2023 Method: Phone call Type: Outbound Duration (min): 2 Outcome: Left message-person Contact Type: photography coordinator Contact Name: Tha Khalil Notes: Spoke with patient, there was a bad connection, patient to call back, cn number provided. Created By: Tha Khalil Date: November 19, 2023 Method: Phone call Type: Outbound Duration (min): 4 Outcome: Case discussion Contact Type: photography coordinator Contact Name: Tha Khalil Notes: TCM#1- see tcm note. Created By: Tha Khalil [facility] 11-19-19 [facility] Case Information Case Priority: None Programs: -- Referral Source: Pig Conveyor Operator Referral Reason: Care coordination Case Type: Transition Care Management Risk Score: -- Case Status: Enrolled (November 19, 2023) Date Assigned: November 19, 2023 Assigned By: Tha Khalil Date Enrolled: November 19, 2023 Assigned Primary Personnel: Tha Kahlil Assigned Secondary Personnel: -- Case Physician: Betina Sampson MD Problems Ongoing 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 Bradycardia CAD in [place] artery Chronic kidney disease, stage 3a Closed [...] (min): 4 Outcome: Case discussion Contact Type: photography coordinator Contact Name: Tha Khalil Notes: TCM#1- see tcm note. Created By: Tha Khalil [facility] ED Note-Physicianon 09-25-19 ED Note-Physician [id number] [facility] RAD - MISCon 09-25-2023 RAD - MISC [id number]#1.00TIFF [place] [facility] Office Visiton 08-08-2023 Follow-up visit [id number] HortenciaJamaica quiñonez 1945 M Date Provider Department Center 08/08/2023 ANTONIO SALMERON CATHERINE Rehman [facility] No family history on file Level of Service:65760 [place] OFFICE/OUTPATIENT ESTABLISHED MOD MDM 30-39 MIN Reason for Visit and Comments: Follow-up [465672] Normal [facility] Family Medicine Office/Clini c Noteon 07-06-2023 [...] this time. Will have labs completed with [facility]. [facility] [...] Body mass index (more content not included)... [facility] Comment on above: Result Comment: Elec tronically Signed By: Juancho GILLIS DO, FAAFP\.br\Date and Time Signed: 07/06/23 07:34 EDT\.br\Electronically Co-Signed By: Tha Khalil\.br\Date and Time Co-Signed: 07/05/23 09:25 EDT Ambulatory Visit Summaryon 1 Ambulatory Visit Summary J[place]ICA CORRIGAN :1945 Visit Date:07/05/2023 Ambulatory Visit Instructions Your Diagnosis Annual visit for general adult medical examination without abnormal findings Bradycardia HLD (hyperlipidemia) Primary hypertension Influenza vaccination declined BMI 32.0-32.9,adult Your Care Team Attending Physician - Betina Sampson MD. Primary Care Physician - Betina Samposn MD. This Is Your Medications List aspirin (Aspir [...] DELONG, Zachary Meléndez Where: [facility] Normal [address] [place] [address]- \.br\ Medications\.br \ What How Much When [...] chronic kidney disease\.br\ Bradycardia\.br \ CAD in [place] artery\.br\ Chronic kidney disease, stage 3a\.br\ Closed [...] instructions at home:\.br\ Medicines\.br\ ? \.br\ Take swrt-fgc-grfwsn r and prescription medicines only as told [...] of hard liquor (44 mL).\.br\ ? \.br\ [facility] Patient Educationon 07-05-20 23 Patient Education [...] night-lights. ? Place frequently used items in grcr-jx-oabyo places. Lower the shelves around your home [...] the way. ? Do not use floor welsh or wax that makes floors slippery. If [...] include working with a physical therapist or link trainer teacher to improve your strength, balance, and endurance. Where to find more information ? Centers for Disease Control and Prevention, [place]: www.cdc.gov ? National [place] on Aging: www.kai.nih.gov Contact a health care [...] health ca (more content not included)... Normal [facility] Screenson 07-05-2023 Screens [id number] Normal [facility] Ambulatory Visit Summaryon 0 06-11-2023 Ambulatory Visit Summary J[place] CORRIGAN :1945 Visit Date:06/11/2023 Ambulatory Visit Instructions [...] DELONG, Zachary Meléndez [facility] Family Medicine Office/Clini c Noteon 06-11-2023 Family Medicine Office/Clinic Note HPI Staff [place] is a 77 year old male presenting [...] E&M of Est. Patient Low 20-29 Min 01686 Remove impacted ear wax- 69664 2. BMI 30.0-30.9,adult (Z68.30: Body mass index [BMI] 30.0-30.9, adult) - BMI education given Ordered: E&M of Est. Patient Low 20-29 Min 30947 Remove impacted ear wax- 65371 3. Class 1 obesity due to excess calories in adult (E66.09: Other obesity due to excess calories) - As above Ordered: E&M of Est. Patient Low 20-29 Min 82005 Remove impacted ear wax- 01217 Follow-up No qualifying data available 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 Bradycardia CAD in [place] artery Chronic kidney disease, stage 3a Closed [...] SARS-CoV-2 (COVID-19) Ad26 vaccine 11/30/2020 Recorded Normal [facility] Comment on above: Result Comment: Elec tronically Signed By: Adrián DELONG, Betina Anna\.br\Date and Time Signed: 06/11/23 12:15 EDT Patient Correspondenceon Patient Correspondence [id number]:12 7 Normal [facility] RAD - MISCon 06-06-2023 RAD - MISC [id number]:12 7 Normal [facility] Lab Reportson 06-04-2023 Lab Reports [id number]#1.00CD:127 [facility] RAD - MISCon 05-28-2023 RAD - MISC [id number]#1.00CD:12 7 [facility] Operative Reporton 3 Operative Report [id number]#1.00CD:12 7 [facility] Consent for Procedure/Surger yon 05-22-2023 Consent for Procedure/Surgery [id number]#1.00CD:12 7 [facility] Consent for Procedure/Surgery [id number]#1.00CD:12 7 [facility] Operative Reporton 3 Operative Report [id number]#1.00CD:127 [facility] Ambulatory Visit Summaryon 0 05-14-2023 Ambulatory Visit Summary JAMAICA CORRIGAN :1945 Visit Date:05/14/2023 Ambulatory Visit Instructions Your Diagnosis Renal stone Hard of hearing Primary hypertension Chronic kidney disease, stage 3a Bradycardia CAD in [place] artery BMI 30.0-30.9,adult Class 2 obesity due [...] 3a chronic kidney disease Bradycardia CAD in [place] artery Chronic kidney disease, stage 3a Closed displaced fracture of shaft of right clavicle Dyspnea on exertion Hard of hearing HLD (hyperlipidemia) Hx of cardiac catheterization Mild diastolic dysfunction Mild persistent asthma without complication Primary hypertension Renal stone Vitamin D deficiency Normal [facility] Family Medicine Office/Clini c Noteon 05-14-2023 [...] Hg (Most Recent) 3074F 6. CAD in [place] artery (I25.10: Atherosclerotic heart disease of [place] coronary artery without angina pectoris) - Denies [...] 3a chronic kidney disease Bradycardia CAD in [place] artery Chronic kidney disease, stage 3a Closed displaced fracture of shaft of right clavicle Dyspnea on exertion Hard of hearing HLD (hyperlipidemia) Hx of cardiac catheterization Mild diastolic dysfunction Mild persistent asthma without complication Primary hypertension Renal stone Vitamin D deficiency Historical No qualifying data Procedure/Surgical History Placement of stent in cardiac conduit (12/11 (more content not included)... [facility] Comment on above: Result Comment: Elec tronically Signed By: Betina Sampson MD\.br\Date and Time Signed: 05/14/23 07:10 EDT RAD - MISCon 05-12-2023 RAD - MISC [id number]:12 7 [facility] RAD - MISCon 05-10-2023 RAD - MISC [id number]:12 7 [facility] Population [facility] 05-07-20 [facility] Case Information Case Priority: None Programs: -- Referral Source: Pig Conveyor Operator Referral Reason: Care coordination Case Type: Transition Care Management Risk Score: -- Case Status: Enrolled (April 16, 2023) Date Assigned: April 16, 2023 Assigned By: Komal Walker RN Date Enrolled: April 16, 2023 Assigned Primary Personnel: Komal Walker RN Assigned Secondary Personnel: -- Case Physician: Betina Sampson MD Problems Ongoing 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 Bradycardia CAD in [place] artery Chronic kidney disease, stage 3a Closed [...] (min): 2 Outcome: Case discussion Contact Type: photography coordinator Contact Name: Komal Walker RN Notes: Called patient for final TCM #4 as patient has an appointment with Dr. Sampson on 05/14/23, see FT summary note. Created By: Komal Walker RN Date: April 30, 2023 Method: Phone call Type: Outbound Duration (min): 3 Outcome: Case discussion Contact Type: photography coordinator Contact Name: Komal Walker RN Notes: TCM #3, see Ft summary note. Created By: Koaml Walker RN Date: April 20, 2023 Method: Phone call Type: Outbound Duration (min): 6 Outcome: Case discussion Contact Type: photography coordinator Contact Name: Komal Walker RN Notes: TCM #2, see message center note. Created By: Komal Walker RN Date: April 16, 2023 Method: Phone call Type: Outbound Duration (min): 5 Outcome: Case discussion Contact Type: photography coordinator Contact Name: Komal Walker RN Notes: TCM #1, see FT summary note. Created By: Komal Walker RN [facility] [id number]:12 7 [facility] Population Healthon 04-30-20 Population Health Case Information Case Priority: None Programs: -- Referral Source: Pig Conveyor Operator Referral Reason: Care coordination Case Type: Transition Care Management Risk Score: -- Case Status: Enrolled (April 16, 2023) Date Assigned: April 16, 2023 Assigned By: Komal Walker RN Date Enrolled: April 16, 2023 Assigned Primary Personnel: Komal Walker RN Assigned Secondary Personnel: -- Case Physician: Betina Sampson MD Ongoing 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 Bradycardia CAD in [place] artery Chronic kidney disease, stage 3a Closed [...] (min): 3 Outcome: Case discussion Contact Type: photography coordinator Contact Name: Komal Walker RN Notes: TCM #3, see Ft summary note. Created By: Komal Walker RN Date: April 20, 2023 Method: Phone call Type: Outbound Duration (min): 6 Outcome: Case discussion Contact Type: photography coordinator Contact Name: Komal Walker RN Notes: TCM #2, see message center note. Created By: Komal Walker RN Date: April 16, 2023 Method: Phone call Type: Outbound Duration (min): 5 Outcome: Case discussion Contact Type: photography coordinator Contact Name: Komal Walker RN Notes: TCM #1, see FT summary note. Created By: Komal Walker RN [facility] CHEMISTRYOrdered By: SYSTEM SYSTEM on 11-13-2022 Albumin [Mass/Vol] 4.0 g/dL Normal 3.3 - 5.0 gm/dL F [facility] [place] Remisol Albumin/Globulin [Mass ratio] 1.3 {ratio} Normal 1.1 - 2.2 FT Remisol ALP [Catalytic activity/Vol] 51 [iU]/d Normal 21 - 98 Int._Unit/L [facility] Remisol ALT No additional P-5'-P [Catalytic activity/Vol] 26 [iU]/d Normal 6 - 46 Int._Unit/L [facility] Remisol Anion gap [Moles/Vol] 12 mmol/L Normal 6 - 16 mEq/L [facility] Remisol AST [Catalytic activity/Vol] 25 [iU]/d Normal [...] 5 - 21 mg/dL [facility] Remisol Urea nitrogen/Creatinine [Mass ratio] 22 mg/mg High 10 - 20 [facility] Remisol HEMATOLOGYOrdered By: SYSTEM SYSTEM on 11-13-2022 Basophils/100 WBC (Bld) 0.7 % Normal 0.0 - 2.0 % [facility] HemeAutoSS Basophils/Leukocyte s Auto (Bld) [Pure # fraction] 0.0 E9/L Normal 0.0 - 0.2 E9/L [facility] HemeAutoSS Eosinophils/100 WBC (Bld) 3.2 % Normal 0.0 - 8.0 % [facility] HemeAutoSS Eosinophils/Leukocy catina Auto (Bld) [Pure # fraction] 0.2 E9/L Normal 0.0 - 0.5 E9/L [facility] HemeAutoSS Lymphocytes/100 WBC (Bld) 27.3 % Normal 14.0 - 50.0 % [facility] HemeAutoSS Lymphocytes/Leukocy catina Auto (Bld) [Pure # fraction] 1.8 E9/L Normal 1.0 - 4.0 E9/L [facility] HemeAutoSS Monocytes/100 WBC (Bld) 11.4 % Normal 4.0 - 14.0 % [facility] HemeAutoSS Monocytes/Leukocyte s Auto (Bld) [Pure # fraction] 0.7 E9/L Normal 0.2 - 1.0 E9/L [facility] HemeAutoSS Neutrophils/100 WBC (Bld) 57.4 % Normal 36.0 - 75.0 % [facility] HemeAutoSS Neutrophils/Leukocy catina Auto (Bld) [Pure # fraction] 3.7 E9/L [...] 6.4 E9/L Normal 4.0 - 11.0 E9/L [facility] HemeAutoSS ECHOCARDIO M/2D COMPLETEon 1 09-25-2021 ECHOCARDIO M/2D COMPLETE Patient: JAMAICA CORRIGAN Exam Date: 07/26/2022 : 1945 Gender:M Ordering : DR ANTONIO GIBSON M.D. Admission #: [id number] Family : DR. BETINA SAMPSON . Order #: [id number] CLICK HERE TO VIEW EXAM ECHOCARDIOGRAM REPORT [...] 37.38 ml, 37.38 ml Dictated by: Antonio Gibson M.D. on 07/26/2022 at 11:59 Approved by: Antonio Gibson M.D. on 07/26/2022 at 12:05 Normal [facility] CBC AUTO DIFFon 04-27-2022 BASO # 0.1 103/ul Normal 0.0-0.1 [facility] Comment on above: Performed By: #### C BC #### [facility] [address] [place] [address] Dr. Kimber Rascon Basophils/100 WBC (Bld) 0.7 % Normal 0.2-2.0 [facility] Comment on above: Performed By: #### C BC #### [facility] [address] [place] [address] Dr. Kimber Rascon EO # 0.2 103/ul Normal 0.0-0.7 [facility] Comment on above: Performed By: #### C BC #### [facility] [address] [place] [address] Dr. Kimber Rascon Eosinophils/100 WBC (Bld) 2.8 % Normal 0.9-7.0 [facility] Comment on above: Performed By: #### C BC #### [facility] [address] [place] [address] Dr. Kimber Rascon Erythrocyte distribution width (RBC) [Ratio] 12.6 % Normal 11.0-15.0 [facility] Comment on above: Performed By: #### C BC #### [facility] [address] [place] [address] Dr. Kimber Rascon Hematocrit (Bld) [Volume fraction] 47.1 % Normal 42.0-54.0 [facility] Comment on above: Performed By: #### C BC #### [facility] [address] [place] [address] Dr. Kimber Rascon Hemoglobin (Bld) [Mass/Vol] 15.9 g/dL Normal 14.0-18.0 [facility] Comment on above: Performed By: #### C BC #### [facility] [address] [place] [address] Dr. Kimber Rascon IG # 0.04 10e3/ul Critically high 0.00-0.03 [facility] Comment on above: Performed By: #### C BC #### [facility] [address] [place] [address] Dr. Kimber Rascon IG % 0.6 % Critically high 0.0-0.5 [facility] Comment on above: Performed By: #### C BC #### [facility] [address] [place] [address] Dr. Kimber Rascon LYMPH # 2.3 103/ul Normal 1.2-3.8 [facility] Comment on above: Performed By: #### C BC #### [facility] [address] [place] [address] Dr. Kimber Rascon Lymphocytes/100 WBC (Bld) 34.4 % Normal 20.5-60.0 [facility] Comment on above: Performed By: #### C BC #### [facility] [address] [place] [address] Dr. Kimber Rascon MANUAL DIFF REQ NO Normal [facility] Comment on above: Performed By: #### C BC #### [facility] [address] [place] [address] Dr. Kimber Rascon MCH (RBC) [Entitic mass] 30.8 pg Normal 25.9-34.0 [facility] Comment on above: Performed By: #### C BC #### [facility] [address] [place] [address] Dr. Kimber Rascon MCHC (RBC) [Mass/Vol] 33.8 g/dL Normal 29.9-35.2 [facility] Comment on above: Performed By: #### C BC #### [facility] [address] [place] [address] Dr. Kimber Rascon MCV (RBC) [Entitic vol] 91.3 fL Normal 80.0-94.0 [facility] Comment on above: Performed By: #### C BC #### [facility] [address] [place] [address] Dr. Kimber Rascon MONO # 0.6 103/ul Normal 0.3-0.8 [facility] Comment on above: Performed By: #### C BC #### [facility] [address] [place] [address] Dr. Kimber Rascon Monocytes/100 WBC (Bld) 9.4 % Normal 1.7-12.0 [facility] Comment on above: Performed By: #### C BC #### [facility] [address] [place] [address] Dr. Kimber Rascon NEUT # 3.6 103/ul Normal 1.4-6.5 [facility] Comment on above: Performed By: #### C BC #### [facility] [address] [place] [address] Dr. Kimber Rascon Neutrophils/100 WBC (Bld) 52.1 % Normal 43.0-75.0 [facility] Comment on above: Performed By: #### C BC #### [facility] [address] [place] [address] Dr. Kimber Rascon Platelet mean volume (Bld) [Entitic vol] 9.2 fL Critically low 9.5-13.5 [facility] Comment on above: Performed By: #### C BC #### [facility] [address] [place] [address] Dr. Kimber Rascon PLT 161 103/ul Normal 150-450 [facility] Comment on above: Performed By: #### C BC #### [facility] [address] [place] [address] Dr. Kimber Rascon RBC 5.16 106/ul Normal 4.70-6.10 [facility] Comment on above: Performed By: #### C BC #### [facility] [address] [place] [address] Dr. Kimber Rascon WBC 6.8 103/ul Normal 4.0-11.0 [facility] Comment on above: Performed By: #### C BC #### [facility] [address] [address] [address] Kimber Rascon LIPID PROFILEon 04-27-2022 CHOL-HDL RATIO NORM SEE BELOW Normal [facility] Comment on above: Result Comment: 3.3 - 4.4 LOW RISK 4.4 - 7.1 AVERAGE RISK 7.1 - 11.0 MODERATE RISK >11.0 HIGH RISK Performed By: #### L IPID #### [facility] [address] [address] [address] Kimber Rascon Cholesterol [Mass/Vol] 144 mg/dL Normal <=200 [facility] Comment on above: Performed By: #### L IPID #### [facility] [address] [address] [address] Kimber Rascon Cholesterol in HDL [Mass/Vol] 35 mg/dL Critically low 40-60 [facility] Comment on above: Performed By: #### L IPID #### [facility] [address] [address] [address] Kimber Rascon Cholesterol in LDL [Mass/Vol] 68.0 mg/dL Normal [facility] Comment on above: Performed By: #### L IPID #### [facility] [address] [address] [address] Kimber Rascon Cholesterol.total/C holesterol in HDL [Mass ratio] 4.1 {ratio} Normal [facility] Comment on above: Performed By: #### L IPID #### [facility] [address] [address] [address] Kimber Rascon HDL NORMAL > or = 60 mg/dl - LO W CARDIOVASCULAR RISK <40 mg/dl - HIGH CARDIOVASCULAR RISK Normal [facility] Comment on above: Performed By: #### L IPID #### [facility] [address] [address] [address] Kimber Rascon LDL CALC NORMAL SEE BELOW Normal [facility] Comment on above: Result Comment: <100 mg/dl OPTIMAL 100 - 129 mg/dl NEAR OR ABOVE OPTIMAL 130 - 159 mg/dl BORDERLINE HIGH 160 - 189 mg/dl HIGH >190 mg/dl VERY HIGH Performed By: #### L IPID #### [facility] [address] [place], [place] [address] Dr. Kimber Rascon Triglyceride [Mass/Vol] 205 mg/dL Critically high <=150 [facility] Comment on above: Performed By: #### L IPID #### [facility] [address] [place], [place] [address] Dr. Kimber Rascon VLDL CALC 41.0 mg/dL Normal [facility] Comment on above: Performed By: #### L IPID #### [facility] [address] [place], [place] [address] Dr. Kimber Rascon Cardiovascular Lab Reporton 01-16-2018 Cardiovascular Lab Report [facility] Patient Name: Jamaica Corrigan [facility] MR #: [id number] Physician: Antonio Lopez M.D.Medicine Service Date: 01/16/2018Division of Birthdate: 4Cardiology Room #: CCAdult CardiovascularServic[address] [address]Eefvw Fax Cardiovascular Laboratory ReportINDICATION: Jamaica Corrigan is a 72-year-old man, who recently [...] signed informed consent. He was brought to organic lab worker in a fasting state.The left wrist area was prepped and draped in usual fashion. Adriel's testwas favorable. Access in the left radial artery was obtained usingmodified Seldinger technique. A 6-Mosotho x 11 cm Hydrophilic sheath wasadvanced. Verapamil was given through the sheath and heparin wasadministered intravenously. A 6-Mosotho XB 3.5 guiding catheter wasadvanced over a Tello wire and used to engage left main coronary ostium.Initial setup angiography was performed. A [employer] FFR wire was advancedand equalization of pressure [...] Follow up in Cardiology Clinic.Electronically Signed by:Antonio Gibson M.D. 01/18/2018 04:01 P Antonio Gibson M.D.Date Dict: 01/16/2018/09:03 Aubrey/Antonio Gibson M.D.Date Trans: 01/16/2018 09:35 A/[id number] cc: Maxwell Swan D.O. [address] [facility] [address] [place] [facility] Cardiovascular Lab Reporton 12-15-2017 Cardiovascular Lab Report [facility] Patient Name: Jamaica Corrigan [facility] MR #: [id number] Physician: Antonio Lopez M.D.Medicine Service Date: 12/14/2017Division of Birthdate: 1945ardiology Room #: 3CD [id number] [address] [address]Svpul Fax Cardiovascular Laboratory ReportINDICATION: Jamaica Corrigan is a 72-year-old man who was evaluated recently inCardiology Clinic because of recent onset symptoms of upper back pain andshortness of breath on minimal exertion. His stress test showedinferolateral ischemia. He was referred for cardiac catheterization.PROCEDURE :1. Bilateral selective coronary angiography from the left [...] signed informed consent. He was brought to organic lab worker in a fasting state.The left wrist area was prepped and draped in the usual fashion. Adriel'stest was favorable on the left. Access was obtained in the left radialartery using micropuncture technique. A 6-Mosotho x 11 cm Hydrophilicsheath was advanced. Verapamil was given through the sheath and heparinwas administered intravenously. Bilateral selective coronary angiographywas then performed using 6-Mosotho JL4 and JR4 diagnostic catheters.Initial catheter advancement [...] This was post dilated using [employer] 3.0 x 12 mm ballooninflated at 16 [...] balloon was retracted. The wire was retracted. Intracoronarynitroglyceri n was administered. Final angiography was performed showingreduction [...] Follow up in Cardiology Clinic.Electronically Signed by:Antonio Gibson M.D. 12/29/2017 03:36 A Antonio Gibson M.D.Date Dict: 12/14/2017/07:59 P/Antonio Gibosn M.D.Date Trans: 12/15/2017 03:48 [id number] Normal [facility] Vital Signs Date Time Vital Sign Value Performing Clinician Facility 05-08-2024 14:13-0400 Body temperature 97.7 [degF] Mhd Al-Marrawi [facility] 05-08-2024 14:13-0400 Diastolic blood pressure 74 mm[Hg] Mhd Al-Marrawi [facility] 05-08-2024 14:13-0400 Heart rate 60 /min Mhd Al-Marrawi [facility] 05-08-2024 14:13-0400 Mean blood pressure 95 mm[Hg] d Al-Marrawi [facility] 05-08-2024 14:13-0400 Respiratory rate 16 /min d Al-Marrawi [facility] 05-08-2024 14:13-0400 SaO2% (BldA) [Mass fraction] 98 % Mhd Al-Marrawi [facility] 05-08-2024 14:13-0400 Systolic blood pressure 138 mm[Hg] d Al-Marrawi [facility] 05-07-2024 13:01-0400 Blood Pressure Location Mhd Al-Marrawi [facility] 05-07-2024 13:01-0400 Body temperature 97.7 [degF] d Al-Marrawi [facility] 05-07-2024 13:01-0400 Diastolic blood pressure 77 mm[Hg] Mhd Al-Marrawi [facility] 05-07-2024 13:01-0400 Heart rate 66 /min Mhd Al-Marrawi [facility] 05-07-2024 13:01-0400 Mean blood pressure 93 mm[Hg] Mhd Al-Marrawi [facility] 05-07-2024 13:01-0400 Respiratory rate 16 /min Mhd Al-Marrawi [facility] 05-07-2024 13:01-0400 SaO2% (BldA) [Mass fraction] 99 % Mhd Al-Marrawi [facility] 05-07-2024 13:01-0400 Systolic blood pressure 124 mm[Hg] Mhd Al-Marrawi [facility] 05-06-2024 10:09-0400 Body temperature 98.24 [degF] Mhd Al-Marrawi [facility] 05-06-2024 10:09-0400 Diastolic blood pressure 74 mm[Hg] Mhd Al-Marrawi [facility] 05-06-2024 10:09-0400 Heart rate 76 /min Mhd Al-Marrawi [facility] 05-06-2024 10:09-0400 Mean blood pressure 87 mm[Hg] Mhd Al-Marrawi [facility] 05-06-2024 10:09-0400 Respiratory rate 16 /min Mhd Al-Marrawi [facility] 05-06-2024 10:09-0400 SaO2% (BldA) [Mass fraction] 98 % Mhd Al-Marrawi [facility] 05-06-2024 10:09-0400 Systolic blood pressure 114 mm[Hg] Mhd Al-Sarahi [facility] 05-01-2024 15:00-0400 Hourly Rounding Zachary AMADA [facility] 05-01-2024 15:00-0400 Promise to Return Zachary AMADA [facility] 05-01-2024 14:00-0400 Hourly Rounding Zachary AMADA [facility] 05-01-2024 14:00-0400 Promise to Return Zachary AMADA [facility] 05-01-2024 13:00-0400 Hourly Rounding Zachary AMADA [facility] 05-01-2024 13:00-0400 Promise to Return Zachary AMADA [facility] 05-01-2024 11:00-0400 Body temperature 98.24 [degF] Zachary AMADA [facility] 05-01-2024 11:00-0400 Diastolic blood pressure 72 mm[Hg] Zachary AMADA [facility] 05-01-2024 11:00-0400 Heart rate 82 /min Zachary AMADA [facility] 05-01-2024 11:00-0400 Respiratory rate 18 /min Zachary AMADA [facility] 05-01-2024 11:00-0400 SaO2% (BldA) [Mass fraction] 98 % Zachary AMADA [facility] 05-01-2024 11:00-0400 Systolic blood pressure 120 mm[Hg] Zacharyshila WHITESLIN [facility] 05-01-2024 08:04-0400 Diastolic blood pressure 84 mm[Hg] Zachary AMADA [facility] 05-01-2024 08:04-0400 Heart rate 86 /min Zacharyshila WHITESLIN [facility] 05-01-2024 08:04-0400 Systolic blood pressure 118 mm[Hg] Zacharyshila WHITESLIN [facility] 05-01-2024 07:00-0400 Body temperature 97.7 [degF] Zacharyshila WHITESLIN [facility] 05-01-2024 07:00-0400 Mean blood pressure 95 mm[Hg] Zacharyshila WHITESLIN [facility] 05-01-2024 07:00-0400 Respiratory rate 16 /min Zacharyshila WHITESLIN [facility] 05-01-2024 00:00-0400 Blood Pressure Location Zacharyshila WHITESLIN [facility] 05-01-2024 00:00-0400 Heart rate 66 /min Zacharyshila WHITESLIN [facility] 05-01-2024 00:00-0400 Mean blood pressure 89 mm[Hg] Zacharyshila WHITESLIN [facility] 05-01-2024 00:00-0400 Respiratory rate 18 /min Zacharyshila WHITESLIN [facility] 05-01-2024 00:00-0400 SaO2% (BldA) [Mass fraction] 96 % Zacharyshila WHITESLIN [facility] 04-30-2024 19:20-0400 Heart rate 84 /min Zacharyshila WHITESLIN [facility] 04-30-2024 19:19-0400 Body temperature 98.42 [degF] Zachary AMADA [facility] 04-30-2024 19:19-0400 Mean blood pressure 90 mm[Hg] Zachary AMADA [facility] 04-30-2024 16:30-0400 Heart rate 76 /min Zachary AMADA [facility] 04-30-2024 16:30-0400 Mean blood pressure 90 mm[Hg] Zachary AMADA [facility] 04-30-2024 16:30-0400 Body temperature 98.06 [degF] Zachary AMADA [facility] 04-30-2024 10:40-0400 Heart rate 71 /min Zachary AMADA [facility] 04-30-2024 10:38-0400 Mean blood pressure 83 mm[Hg] Zachary AMADA [facility] 04-30-2024 07:00-0400 Mean blood pressure 95 mm[Hg] Zachary AMADA [facility] 04-30-2024 01:01-0400 Blood Pressure Location Zachary AMADA [facility] 04-28-2024 00:00-0400 Respiratory rate 16 /min Zachary AMADA [facility] 04-27-2024 23:30-0400 Respiratory rate 13 /min Zachary AMADA [facility] 04-27-2024 23:00-0400 Respiratory rate 10 /min Zachary AMADA [facility] 04-27-2024 20:06-0400 Heart rate 87 /min Zachary YBARRA [facility] 04-23-2024 13:01-0400 Body temperature 97.88 [degF] FABRICE CLOAK [facility] 04-23-2024 13:01-0400 Diastolic blood pressure 67 mm[Hg] FABRICE CLOAK [facility] 04-23-2024 13:01-0400 Heart rate 74 /min FABRICE CLOAK [facility] 04-23-2024 13:01-0400 Mean blood pressure 86 mm[Hg] FABRICE CLOAK [facility] 04-23-2024 13:01-0400 SaO2% (BldA) [Mass fraction] 98 % FABRICE CLOAK [facility] 04-23-2024 13:01-0400 Systolic blood pressure 123 mm[Hg] FABRICE CLOAK [facility] 04-22-2024 13:36-0400 Body temperature 97.88 [degF] Mhd Al-Marrawi [facility] 04-22-2024 13:36-0400 Diastolic blood pressure 65 mm[Hg] Mhd Al-Marrawi [facility] 04-22-2024 13:36-0400 Heart rate 61 /min Mhd Al-Marrawi [facility] 04-22-2024 13:36-0400 Mean blood pressure 78 mm[Hg] Mhd Al-Marrawi [facility] 04-22-2024 13:36-0400 Respiratory rate 16 /min Mhd Al-Marrawi [facility] 04-22-2024 13:36-0400 SaO2% (BldA) [Mass fraction] 97 % d Al-Marrawi [facility] 04-22-2024 13:36-0400 Systolic blood pressure 105 mm[Hg] d Al-Marrawi [facility] 04-21-2024 08:58-0400 Body height 167.64 cm MD Betina Sampson Work Phone: [facility] 04-21-2024 08:58-0400 Body mass index (BMI) [Ratio] 32.3 kg/m2 MD Betina Sampson Work Phone: [facility] 04-21-2024 08:58-0400 Body temperature 97.8 [degF] MD Betina Sampson Work Phone: [facility] 04-21-2024 08:58-0400 Body weight 90.71 kg MD Betina Sampson Work Phone: [facility] 04-21-2024 08:58-0400 Diastolic blood pressure 67 mm[Hg] MD Betina Sampson Work Phone: [facility] 04-21-2024 08:58-0400 Heart rate 57 /min MD Betina Sampson Work Phone: [facility] 04-21-2024 08:58-0400 Respiratory rate 16 /min MD Betina Sampson Work Phone: [facility] 04-21-2024 08:58-0400 SaO2% (BldA) [Mass fraction] 99 % MD Betina Sampson Work Phone: [facility] 04-21-2024 08:58-0400 Systolic blood pressure 114 mm[Hg] MD Betina Sampson Work Phone: [facility] 04-18-2024 13:00-0400 Blood Pressure Location d Al-Marrawi [facility] 04-18-2024 13:00-0400 Body temperature 98.06 [degF] Mhd Al-Marrawi [facility] 04-18-2024 13:00-0400 Diastolic blood pressure 66 mm[Hg] Mhd Al-Marrawi [facility] 04-18-2024 13:00-0400 Heart rate 64 /min Mhd Al-Marrawi [facility] 04-18-2024 13:00-0400 Mean blood pressure 82 mm[Hg] Mhd Al-Marrawi [facility] 04-18-2024 13:00-0400 Respiratory rate 18 /min Mhd Al-Marrawi [facility] 04-18-2024 13:00-0400 SaO2% (BldA) [Mass fraction] 98 % Mhd Al-Marrawi [facility] 04-18-2024 13:00-0400 Systolic blood pressure 113 mm[Hg] Mhd Al-Marrawi [facility] 04-17-2024 12:52-0400 Blood Pressure Location Mhd Al-Marrawi [facility] 04-17-2024 12:52-0400 Body temperature 97.88 [degF] Mhd Al-Marrawi [facility] 04-17-2024 12:52-0400 Diastolic blood pressure 75 mm[Hg] Mhd Al-Marrawi [facility] 04-17-2024 12:52-0400 Heart rate 53 /min Mhd Al-Marrawi [facility] 04-17-2024 12:52-0400 Mean blood pressure 91 mm[Hg] Mhd Al-Marrawi [facility] 04-17-2024 12:52-0400 Respiratory rate 16 /min Mhd Al-Marrawi [facility] 04-17-2024 12:52-0400 SaO2% (BldA) [Mass fraction] 98 % Mhd Al-Marrawi [facility] 04-17-2024 12:52-0400 Systolic blood pressure 122 mm[Hg] Mhd Al-Marrawi [facility] 04-15-2024 08:00-0400 Blood Pressure Location Mhd Al-Marrawi [facility] 04-15-2024 08:00-0400 Body temperature 98.24 [degF] Mhd Al-Marrawi [facility] 04-15-2024 08:00-0400 Diastolic blood pressure 79 mm[Hg] Mhd Al-Marrawi [facility] 04-15-2024 08:00-0400 Heart rate 67 /min Mhd Al-Marrawi [facility] 04-15-2024 08:00-0400 Mean blood pressure 101 mm[Hg] Mhd Al-Marrawi [facility] 04-15-2024 08:00-0400 Respiratory rate 18 /min Mhd Al-Marrawi [facility] 04-15-2024 08:00-0400 SaO2% (BldA) [Mass fraction] 98 % Mhd Al-Marrawi [facility] 04-15-2024 08:00-0400 Systolic blood pressure 145 mm[Hg] Mhd Al-Marrawi [facility] 04-04-2024 09:58-0400 Diastolic blood pressure 72 mm[Hg] Honorio Gomez [facility] 04-04-2024 09:58-0400 Heart rate 60 /min Honorio Mourany [facility] 04-04-2024 09:58-0400 Mean blood pressure 89 mm[Hg] Honorio Mourany [facility] 04-04-2024 09:58-0400 Systolic blood pressure 122 mm[Hg] Honorio Mourany [facility] 04-04-2024 09:58-0400 Heart rate 60 /min Honorio Mourany [facility] 04-04-2024 09:58-0400 SaO2% (BldA) [Mass fraction] 98 % Honorio Mourany [facility] 04-04-2024 09:57-0400 Body temperature 98.78 [degF] Honorio Mourany [facility] 04-04-2024 09:57-0400 Respiratory rate 16 /min Honorio Mourany [facility] 04-04-2024 09:57-0400 Blood Pressure Location Honorio Mourany [facility] 04-04-2024 09:57-0400 Diastolic blood pressure 76 mm[Hg] Honorio Mourany [facility] 04-04-2024 09:57-0400 Mean blood pressure 88 mm[Hg] Honorio Mourany [facility] 04-04-2024 09:57-0400 Systolic blood pressure 114 mm[Hg] Honorio Mourany [facility] 03-26-2024 08:13-0400 Body height 167.64 cm MD Betina Sampson Work Phone: [facility] 03-26-2024 08:13-0400 Body weight 92.98 kg MD Betina Sampson Work Phone: [facility] 03-24-2024 08:52-0400 Body temperature 97.88 [degF] Mhd Al-Marrawi [facility] 03-24-2024 08:52-0400 Diastolic blood pressure 74 mm[Hg] Mhd Al-Marrawi [facility] 03-24-2024 08:52-0400 Heart rate 58 /min Mhd Al-Marrawi [facility] 03-24-2024 08:52-0400 Mean blood pressure 87 mm[Hg] Mhd Al-Marrawi [facility] 03-24-2024 08:52-0400 Respiratory rate 18 /min Mhd Al-Marrawi [facility] 03-24-2024 08:52-0400 SaO2% (BldA) [Mass fraction] 99 % Mhd Al-Marrawi [facility] 03-24-2024 08:52-0400 Systolic blood pressure 113 mm[Hg] Mhd Al-Marrawi [facility] 03-17-2024 13:59-0400 Blood Pressure Location Honorio Gomez [facility] [place] 03-17-2024 13:59-0400 Diastolic blood pressure 65 mm[Hg] Honorio Gomez [facility] [place] 03-17-2024 13:59-0400 Heart rate 69 /min Honorio Gomez [facility] 03-17-2024 13:59-0400 Systolic blood pressure 109 mm[Hg] Honorio Gomez [facility] [place] 03-10-2024 12:19-0400 Hourly Rounding Mbanefo OJUKWU [facility] 03-10-2024 12:19-0400 Promise to Return Mbanefo OJUKWU [facility] 03-10-2024 11:11-0400 Hourly Rounding Mbanefo OJUKWU [facility] 03-10-2024 11:11-0400 Promise to Return Mbanefo OJUKWU [facility] 03-10-2024 10:24-0400 Hourly Rounding Mbanefo OJUKWU [facility] 03-10-2024 10:24-0400 Promise to Return Mbanefo OJUKWU [facility] 03-10-2024 08:38-0400 Diastolic blood pressure 73 mm[Hg] Mbanefo OJUKWU [facility] 03-10-2024 08:38-0400 Heart rate 80 /min Mbanefo OJUKWU [facility] 03-10-2024 08:38-0400 Systolic blood pressure 117 mm[Hg] Mbanefo OJUKWU [facility] 03-10-2024 07:57-0400 Heart rate 80 /min Mbanefo OJUKWU [facility] 03-10-2024 07:57-0400 SaO2% (BldA) [Mass fraction] 96 % Mbanefo OJUKWU [facility] 03-10-2024 07:57-0400 Respiratory rate 17 /min Mbanefo OJUKWU [facility] 03-10-2024 07:55-0400 Body temperature 97.88 [degF] Mbanefo OJUKWU [facility] 03-10-2024 07:54-0400 Diastolic blood pressure 73 mm[Hg] Mbanefo OJUKWU [facility] 03-10-2024 07:54-0400 Mean blood pressure 87 mm[Hg] Mbanefo OJUKWU [facility] 03-10-2024 07:54-0400 Systolic blood pressure 117 mm[Hg] Mbanefo OJUKWU [facility] 03-10-2024 00:24-0400 Blood Pressure Location Mbanefo OJUKWU [facility] 03-10-2024 00:24-0400 Body temperature 98.06 [degF] Mbanefo OJUKWU [facility] 03-10-2024 00:24-0400 Diastolic blood pressure 72 mm[Hg] Mbanefo OJUKWU [facility] 03-10-2024 00:24-0400 Heart rate 70 /min Mbanefo OJUKWU [facility] 03-10-2024 00:24-0400 Mean blood pressure 84 mm[Hg] Mbanefo OJUKWU [facility] 03-10-2024 00:24-0400 Respiratory rate 18 /min Mbanefo OJUKWU [facility] 03-10-2024 00:24-0400 SaO2% (BldA) [Mass fraction] 98 % Mbanefo OJUKWU [facility] 03-10-2024 00:24-0400 Systolic blood pressure 109 mm[Hg] Mbanefo OJUKWU [facility] 03-09-2024 20:18-0400 Blood Pressure Location Mbanefo OJUKWU [facility] 03-09-2024 20:18-0400 Body temperature 98.24 [degF] Mbanefo OJUKWU [facility] 03-09-2024 20:18-0400 Heart rate 84 /min Mbanefo OJUKWU [facility] 03-09-2024 20:18-0400 Mean blood pressure 82 mm[Hg] Mbanefo OJUKWU [facility] 03-09-2024 20:18-0400 Respiratory rate 18 /min Mbanefo OJUKWU [facility] 03-09-2024 20:18-0400 SaO2% (BldA) [Mass fraction] 97 % Mbanefo OJUKWU [facility] 03-09-2024 20:14-0400 Heart rate 84 /min Mbanefo OJUKWU [facility] 03-09-2024 15:00-0400 Heart rate 77 /min Mbanefo OJUKWU [facility] 03-09-2024 15:00-0400 Mean blood pressure 102 mm[Hg] Mbanefo OJUKWU [facility] 03-09-2024 12:00-0400 Body temperature 97.7 [degF] Mbanefo OJUKWU [facility] 03-09-2024 09:43-0400 Heart rate 68 /min Mbanefo OJUKWU [facility] 03-09-2024 08:42-0400 Body temperature 97.34 [degF] Mbanefo OJUKWU [facility] 03-09-2024 08:42-0400 Respiratory rate 13 /min Mbanefo OJUKWU [facility] 03-09-2024 08:35-0400 Respiratory rate 19 /min Mbanefo OJUKWU [facility] 03-09-2024 08:30-0400 Respiratory rate 18 /min Mbanefo OJUKWU [facility] 03-09-2024 08:16-0400 Body temperature 97.34 [degF] Mbanefo OJUKWU [facility] 03-09-2024 07:34-0400 Body temperature 97.34 [degF] Mbanefo OJUKWU [facility] 03-08-2024 20:03-0400 Mean blood pressure 95 mm[Hg] Mbanefo OJUKWU [facility] 03-08-2024 19:57-0400 Body temperature 98.42 [degF] Mbanefo OJUKWU [facility] 03-08-2024 17:15-0400 Mean blood pressure 85 mm[Hg] Mbanefo OJUKWU [facility] 03-08-2024 11:57-0400 Heart rate 86 /min Mbanefo OJUKWU [facility] 03-08-2024 07:27-0400 Heart rate 88 /min Mbanefo OJUKWU [facility] 12-21-2023 10:48-0400 Blood Pressure Location Zachary ELAM [facility] 12-21-2023 10:48-0400 Body temperature 98.42 [degF] Zachary ELAM [facility] 12-21-2023 10:48-0400 Diastolic blood pressure 87 mm[Hg] Zachary ELAM [facility] 12-21-2023 10:48-0400 Heart rate 69 /min Zachary ELAM [facility] 12-21-2023 10:48-0400 Respiratory rate 16 /min Zachary ELAM [facility] 12-21-2023 10:48-0400 Systolic blood pressure 139 mm[Hg] Zachary ELAM [facility] 11-13-2022 08:46-0500 Blood Pressure Location Betina Sampson [facility] 11-13-2022 08:46-0500 Diastolic blood pressure 60 mm[Hg] Betina Sampson [facility] 11-13-2022 08:46-0500 Heart rate 59 /min Betina Sampson [facility] 11-13-2022 08:46-0500 SaO2% (BldA) [Mass fraction] 97 % Betina Sampson [facility] 11-13-2022 08:46-0500 Systolic blood pressure 98 mm[Hg] Betina Sampson [facility] 08-14-2022 11:22-0500 Blood Pressure Location Betina Sampson [facility] 08-14-2022 11:22-0500 Diastolic blood pressure 78 mm[Hg] Betina Sampson [facility] 08-14-2022 11:22-0500 Heart rate 57 /min Betina Sampson [facility] 08-14-2022 11:22-0500 SaO2% (BldA) [Mass fraction] 98 % Betina Sampson [facility] 08-14-2022 11:22-0500 Systolic blood pressure 112 mm[Hg] Beitna Sampson [facility] 04-20-2022 08:21-0400 Blood Pressure Location Betina Sampson [facility] 04-20-2022 08:21-0400 Diastolic blood pressure 62 mm[Hg] Betina Sampson [facility] 04-20-2022 08:21-0400 Heart rate 53 /min Betina Sampson [facility] 04-20-2022 08:21-0400 SaO2% (BldA) [Mass fraction] 96 % Betina Sampson [facility] 04-20-2022 08:21-0400 Systolic blood pressure 100 mm[Hg] Betina Sampson [facility] 04-20-2022 08:19-0400 Blood Pressure Location Betina Adrián [facility] 04-20-2022 08:19-0400 Diastolic blood pressure 62 mm[Hg] Betina Sampson [facility] 04-20-2022 08:19-0400 Heart rate 53 /min Betina Sampson [facility] 04-20-2022 08:19-0400 SaO2% (BldA) [Mass fraction] 96 % Betina Sampson [facility] 04-20-2022 08:19-0400 Systolic blood pressure 100 mm[Hg] Betina Sampson [facility] Encounters Encounter Date Encounter Type Care Provider Facility Start: 12-26-2024 ambulatory Zachary Lopez ty: [facility] Start: 10-20-2024 ambulatory Betina Sampson Facility :[facility] [place] Start: 07-08-2024 ambulatory Betina Sampson Facility :[facility] [place] Start: 05-27-2024 ambulatory MD Betina Sampson Facil ity:[facility] [place] Start: 05-12-2024 End: 05-12-2024 ambulatory Mhd Brando Henry Facility:[facility] Start: 05-12-2024 End: 05-12-2024 Patient encounter procedure Mhd Brando Henry [facility] Start: 05-12-2024 End: 05-12-2024 ambulatory Betina Sampson Facility:[facility] [place] Start: 05-08-2024 End: 05-08-2024 ambulatory Mhd Brando Henry Facility:[facility] Start: 05-08-2024 End: 05-08-2024 Patient encounter procedure Mhd Yaser Al-Marrawi [facility] Start: 05-07-2024 End: 05-07-2024 Patient encounter procedure Mhd Yaser Al-Marrawi [facility] Start: 05-06-2024 End: 05-06-2024 ambulatory Mhd Yaser Al-Marrawi Facility:[facility] Start: 05-06-2024 End: 05-06-2024 Patient encounter procedure Mhd Yaser Al-Marrawi [facility] Start: 05-05-2024 End: 05-05-2024 ambulatory Mhd Yaser Al-Marrawi Facility:[facility] Start: 05-05-2024 End: 05-05-2024 Patient encounter procedure Mhd Yaser Al-Marrawi [facility] Start: 05-02-2024 ambulatory Betina Sampson Facility :CD:[id number] Start: 04-27-2024 End: 05-01-2024 Evaluation and management of inpatient Zachary A AMADA Facility:[facility] Start: 04-27-2024 Emergency department patient visit DO Angel Carter Facility:[facility] Start: 04-27-2024 End: 05-01-2024 Evaluation and management of inpatient Zachary A AMADA [facility] Start: 04-23-2024 End: 04-23-2024 ambulatory FABRICE MEMBRENO Facility:[facility] Start: 04-23-2024 End: 04-23-2024 Patient encounter procedure FABRICE MEMBRENO [facility] Start: 04-22-2024 End: 04-22-2024 ambulatory Zachary ELAM Facility:[facility] Start: 04-22-2024 End: 04-22-2024 Patient encounter procedure Mhd Yaser Al-Marrawi [facility] Start: 04-21-2024 End: 04-21-2024 ambulatory Betina Sampson Facility:[facility] [place] Start: 04-21-2024 End: 04-21-2024 Patient encounter procedure MD Betina Sampson Work Phone: [facility] Work Phone: Start: 04-21-2024 Registered Recurring MD Betina Sampson Work Phone: [facility] Work Phone: Start: 04-21-2024 End: 04-21-2024 ambulatory MD Betina Sampson Work Phone: [facility] Work Phone: Start: 04-18-2024 End: 04-18-2024 ambulatory Mhd Yaser Al-Marrawi Facility:[facility] Start: 04-18-2024 End: 04-18-2024 Patient encounter procedure Mhd Yaser Al-Marrawi [facility] Start: 04-17-2024 End: 04-17-2024 ambulatory Mhd Yaser Al-Marrawi Facility:[facility] Start: 04-17-2024 End: 04-17-2024 Patient encounter procedure Mhd Yaser Al-Marrawi [facility] Start: 04-16-2024 End: 04-16-2024 ambulatory Honorio Gomez Facility:[facility] Start: 04-15-2024 End: 04-15-2024 ambulatory Mhd Yaser Al-Marrawi Facility:[facility] Start: 04-15-2024 End: 04-15-2024 Patient encounter procedure Mhd Yaser Al-Marrawi [facility] Start: 04-14-2024 End: 04-14-2024 ambulatory Mhd Yaser Al-Marrawi Facility:[facility] Start: 04-14-2024 End: 04-14-2024 Patient encounter procedure Mhd Yaser Al-Marrawi [facility] Start: 04-14-2024 End: 04-14-2024 ambulatory Mhd Yaser Al-Marrawi Facility:[facility] Start: 04-14-2024 End: 04-14-2024 Patient encounter procedure Mhd Yaser Al-Marrawi [facility] Start: 04-04-2024 End: 04-04-2024 ambulatory Honorio Gomez Facility:[facility] Start: 04-04-2024 End: 04-04-2024 Patient encounter procedure Honorio Gomez [facility] Start: 04-01-2024 ambulatory Mhd Al-Marrawi Facility :[facility] Start: 03-31-2024 End: 03-31-2024 ambulatory Mhd Yaser Al-Marrawi Facility:[facility] Start: 03-31-2024 End: 03-31-2024 Patient encounter procedure Mhd Yaser Al-Marrawi [facility] Start: 03-26-2024 End: 03-26-2024 Patient encounter procedure MD Betina Sampson Work Phone: [facility] Work Phone: Start: 03-26-2024 End: 03-26-2024 ambulatory MD Betina Sampson Work Phone: [facility] Work Phone: Start: 03-24-2024 End: 03-24-2024 ambulatory Honorio Gomez Facility:[facility] Start: 03-24-2024 End: 03-24-2024 Patient encounter procedure Mallory Henry [facility] Start: 03-17-2024 End: 03-17-2024 ambulatory Honorio Gomez Facility:[facility] Start: 03-17-2024 End: 03-17-2024 Patient encounter procedure Honorio Gomez [facility] [place] Start: 03-13-2024 End: 03-13-2024 ambulatory MD Betina Sampson [facility] Start: 03-11-2024 End: 04-10-2024 ambulatory MD Betina Sampson Facility:CD:[id number] Start: 03-10-2024 ambulatory Mbanefo OJUKWU Facility :[facility] Start: 03-08-2024 End: 03-10-2024 ambulatory Mbanefo OJUKWU Facility:[facility] Start: 03-08-2024 Emergency department patient visit Meghan Tompkins St[facility] Facility:[facility] Start: 03-08-2024 End: 03-10-2024 Observation Mbanefo OJUKWU [facility] Start: 03-07-2024 End: 03-07-2024 ambulatory [facility] Start: 02-13-2024 End: 02-13-2024 ambulatory Betina Sampson Facility:[facility] [place] Start: 01-30-2024 End: 02-11-2024 ambulatory Betina Sampson Facility: [facility] Start: 12-25-2023 End: 01-16-2024 ambulatory Betina Sampson Facility: [facility] Start: 12-21-2023 End: 12-21-2023 ambulatory Zachary ELAM Facility: [facility] Start: 12-21-2023 End: 12-21-2023 Patient encounter procedure Zachary ELAM [facility] [place] Start: 12-13-2023 ambulatory Betina Sampson Facility :CD:[id number] Start: 11-29-2023 End: 11-29-2023 ambulatory Betina Sampson Facility:[facility] [place] Start: 11-19-2023 End: 12-24-2023 ambulatory Betina Sampson Facility:CD:[id number] Start: 08-08-2023 End: 08-08-2023 [facility] Start: 07-05-2023 End: 07-05-2023 ambulatory Betina Sampson Facility:[facility] Start: 06-11-2023 End: 06-11-2023 ambulatory Betina Sampson Facility:[facility] [place] Start: 05-24-2023 End: 05-24-2023 ambulatory Zachary ELAM Facility:CD:[id number] Start: 05-14-2023 End: 05-14-2023 ambulatory Betina Sampson Facility:[facility] [place] Start: 05-03-2023 End: 05-03-2023 ambulatory Zachary ELAM Facility:CD:[id number] Start: 11-13-2022 End: 11-13-2022 Lab Drop off Betina Sampson [facility] Start: 11-13-2022 End: 11-13-2022 Patient encounter procedure Betina Sampson [facility] Start: 10-04-[address] ANTONIO GIBSON Fac ility:[facility] Start: 08-14-2022 End: 08-14-2022 Patient encounter procedure Betina Sampson [facility] Start: 07-26-2022 End: 07-27-[address] ANTONIO GIBSON Facility:[facility] Start: 05-11-2022 End: 05-12-[address] ANTONIO GIBSON Facility:[facility] Start: 04-27-2022 End: 04-28-[address] ANTONIO GIBSON Facility:[facility] Start: 04-24-[address] ANTONIO GIBSON Fac ility:[facility] Start: 04-20-2022 End: 04-20-2022 Patient encounter procedure Betina Sampson [facility] Start: 04-20-2022 End: 04-20-2022 Patient encounter procedure Betina Sampson [facility] Start: 02-15-[address] ANTONIO GIBSON Fac ility:[facility] Start: 02-08-2022 End: 02-08-2022 Patient encounter procedure Betina Sampson [facility] Start: 08-22-2018 End: 08-23-2018 Patient encounter procedure DEFAULT PHYSICIAN Facility:[facility] Start: 01-16-2018 End: 01-17-2018 Patient encounter procedure PROVIDER UNKNOWN Facility:[facility] Start: 12-14-2017 End: 12-15-2017 Patient encounter procedure PROVIDER UNKNOWN Facility:[facility] Start: 12-13-2017 End: 12-14-2017 Patient encounter procedure DEFAULT PHYSICIAN Facility:[facility] Start: 12-10-2017 End: 12-11-2017 Patient encounter procedure DEFAULT PHYSICIAN Facility:[facility] Procedures Date Procedure Procedure Detail Performing Clinician Start: 04-16-2024 Insj prph ctr vad w/subq port age 4 yr/> Mhd Elaine Start: 03-26-2024 Positron emission tomography with computed tomography MD Betina Sampson Work Phone: Start: 03-09-2024 Esophagogastroduodenoscopy Mbtd GILLIAM U Start: 05-24-2023 Cystoscopic laser lithotripsy of ureteric calculus Zachary ELAM Start: 05-03-2023 Extracorporeal shockwave lithotripsy of calculus of kidney Zachary ELAM Start: 04-07-2023 Cystoscopic insertion of ureteric stent Zachary ELAM Start: 11-22-2017 Placement of stent in cardiac conduit Betina Sampson Start: 09-24-2017 Colonoscopy Betina Sampson Carpal tunnel syndro me of left wrist (disorder) Betina Sampson Carpal tunnel syndro me of right wrist (disorder) Betina Sampson Kidney stone (disorder) Guille ELAM Comment on above: ablation and stent is out April 2023 Port (substance) Zachary KAI WHITTEN Immunizations Immunization Date Immunization Notes Care Provider Gabriele merino 10-05-2021 SARS-CoV-2 (COVID-19 ) Ad26 vaccine, recombinant Betina Sampson [facility] 11-30-2020 SARS-CoV-2 (COVID-19 ) Ad26 vaccine, recombinant Betina Sampson [facility] NEGATED: Highlighted row has not occurred!06-11-2023 influenza virus vaccine, unspecified formulation Zachary ELAM [facility] NEGATED: Highlighted row has not occurred!11-13-2022 influenza virus vaccine, unspecified formulation Betina Sampson [facility] NEGATED: Highlighted row has not occurred!11-13-2022 SARS-CoV-2 mRNA (tozinameran 5y-11y) vaccine Betina Sampson [facility] NEGATED: Highlighted row has not occurred!08-14-2022 influenza virus vaccine, unspecified formulation Betina Sampson [facility] NEGATED: Highlighted row has not occurred!08-14-2022 SARS-CoV-2 mRNA (tozinameran 5y-11y) vaccine Betina Sampson [facility] Comment on above: Result Comment: Pt r efuses Covid booster Payers Date Payer Category Payer Self-pay [id number] 1960 Medicare [id number] 1960 Self-pay [id number] 1960 Unknown [id number] 1944 Unknown [id number] 2.16.8 40.1.853000.3.579.2.647 1944 Unknown [id number] 2.16.8 40.1.470218.3.579.2.647 1944 Unknown [id number] 2.16.8 40.1.768972.3.579.2.647 1944 Unknown [id number] 2.16.8 40.1.014881.3.579.2.647 1944 Unknown [id number] 2.16.8 40.1.330873.3.579.2.647 1944 Unknown [id number] 2.16.84 0.1.135116.3.579.2.593 1944 Unknown [id number] 2.16.84 0.1.063832.3.579.2.593 1944 Unknown [id number] 2.16.84 0.1.151584.3.579.2.593 1944 Unknown [id number] 2.16.84 0.1.847803.3.579.2.593 1944 Unknown [id number] 2.16.84 0.1.858067.3.579.2.593 1944 Unknown [id number] 2.16.84 0.1.068696.3.579.2.593 1944 Unknown [id number] 2.16.8 40.1.074462.3.579.2.727 1944 Unknown [id number] 2.16.8 40.1.307691.3.579.2.727 1944 Unknown [id number] 2.16.8 40.1.331670.3.579.2.727 1944 Unknown [id number] 2.16.8 40.1.834025.3.579.2.727 1944 Unknown [id number] 2.16.8 40.1.499030.3.579.2.727 1944 Unknown [id number] 2.16.8 40.1.647101.3.579.2.727 1944 Unknown [id number] 2.16.8 40.1.533403.3.579.2.727 1944 Unknown [id number] 2.16.8 40.1.707046.3.579.2.727 1944 Unknown [id number] 2.16.8 40.1.450697.3.579.2.727 1944 Unknown [id number] 2.16.8 40.1.161244.3.579.2.727 1944 Unknown [id number] 2.16.8 40.1.464376.3.579.2.727 1944 Unknown [id number] 2.16.8 40.1.787822.3.579.2.727 1944 Unknown [id number] 2.16.8 40.1.413407.3.579.2.727 1944 Unknown [id number] 2.16.8 40.1.438272.3.579.2.727 1944 Unknown [id number] 2.16.8 40.1.403959.3.579.2.727 1944 Unknown [id number] 2.16.8 40.1.073103.3.579.2.727 1944 Unknown [id number] 2.16.8 40.1.798936.3.579.2.727 1944 Unknown [id number] 2.16.8 40.1.613638.3.579.2.727 1944 Unknown [id number] 2.16.8 40.1.369081.3.579.2.727 1944 Unknown [id number] 2.16.8 40.1.568685.3.579.2.727 1944 Unknown [id number] 2.16.8 40.1.961521.3.579.2.727 1944 Unknown [id number] 2.16.8 40.1.324441.3.579.2.727 1944 Unknown [id number] 2.16.8 40.1.294514.3.579.2.727 1944 Unknown [id number] 2.16.8 40.1.385886.3.579.2.727 1944 Unknown [id number] 2.16.8 40.1.513813.3.579.2.727 1944 Unknown [id number] 2.16.8 40.1.821596.3.579.2.727 1944 Unknown [id number] 2.16.8 40.1.382423.3.579.2.727 1944 Unknown [id number] 2.16.8 40.1.228573.3.579.2.727 1944 Unknown [id number] 2.16.8 40.1.309584.3.579.2.727 1944 Unknown [id number] 2.16.8 40.1.275345.3.579.2.727 1944 Unknown [id number] 2.16.8 40.1.125148.3.579.2.727 1944 Unknown [id number] 2.16.8 40.1.110350.3.579.2.727 1944 Unknown [id number] 2.16.8 40.1.240386.3.579.2.727 1944 Unknown [id number] 2.16.8 40.1.910366.3.579.2.727 1944 Unknown [id number] 2.16.8 40.1.096101.3.579.2.727 1944 Unknown [id number] 2.16.8 40.1.791508.3.579.2.727 1944 Unknown [id number] 2.16.8 40.1.431283.3.579.2.727 1944 Unknown [id number] 2.16.8 40.1.869209.3.579.2.727 1944 Unknown [id number] 2.16.8 40.1.747602.3.579.2.727 1944 Unknown [id number] 2.16.8 40.1.575671.3.579.2.727 1944 Unknown [id number] 2.16.8 40.1.910070.3.579.2.727 1944 Unknown [id number] 2.16.8 40.1.786565.3.579.2.727 1944 Unknown [id number] 2.16.8 40.1.506775.3.579.2.727 1944 Unknown [id number] 2.16.8 40.1.544656.3.579.2.727 1944 Unknown [id number] 2.16.8 40.1.813658.3.579.2.727 1944 Unknown [id number] 2.16.8 40.1.018657.3.579.2.727 1944 Unknown [id number] 2.16.8 40.1.703761.3.579.2.727 1944 Unknown [id number] 2.16.8 40.1.103134.3.579.2.727 1944 Unknown [id number] 2.16.8 40.1.146100.3.579.2.727 1944 Unknown [id number] 2.16.8 40.1.454836.3.579.2.727 1944 Unknown [id number] 2.16.8 40.1.760329.3.579.2.727 1944 Unknown [id number] 2.16.8 40.1.220132.3.579.2.727 1944 Unknown [id number] 2.16.8 40.1.708177.3.579.2.727 Medicare [id number] Unknown Unknown [id number] 2.16.8 40.1.364308.3.579.2.531 Unknown [id number] 2.16.8 40.1.978144.3.579.2.531 Social History Date Type Detail Facility Start: 01-17-2022 End: 05-12-2024 Tobacco smoking status Never smoked tobacco (finding) [facility] Tobacco smoking status Never [facility] Sex Assigned At Male [facility] Start: 1945 Sex Assigned At Male Wang [facility] Medical Equipment Procedure Code Equipment Code Equipment Origin al Text Equipment Identifier Dates INFUSAPORT BILLY Gomez MD, Honorio Anna 04/16/24 Non Biological Left Subclavian Artery/Vein +[id number] [facility] Start: 04-16-2024 Goals Date Patient Goal Desired Activity /State 12-25-2023 Functional Status Date Assessment Result Facility 04-28-2024 Functional Status N/A [facility] 04-27-2024 Functional Status [facility] 04-22-2024 Functional Status N/A [facility] 04-04-2024 Functional Status No [facility] 03-08-2024 Functional Status No [facility] 03-08-2024 Functional Status [facility] 12-21-2023 Functional Status N/A [facility] [place] 11-13-2022 Functional Status N/A [facility] 08-14-2022 Functional Status N/A [facility] 04-20-2022 Functional Status N/A [facility] Clinical Notes 04-20-2022 to 05-12-2024 Note Date & Type Note Facility 05-12-2024 Note Patient Education Immunology Fatigue If you have fatigue, you feel tired all the time and have a lack of energy or a lack of motivation. Fatigue may make it difficult to start or complete tasks because of exhaustion. Occasional or mild fatigue is often a normal response to activity or life. However, long-term (chronic) or extreme fatigue may be a symptom of a medical condition such as: ? Depression. ? Not having enough red blood cells or hemoglobin in the blood (anemia). ? A problem with a small gland located in the lower front part of the neck (thyroid disorder). ? Rheumatologic conditions. These are problems related to the body's defense system (immune system). ? Infections, especially certain viral infections. Fatigue can also lead to negative health outcomes over time. Follow these instructions at home: Medicines ? Take [id number] and prescription medicines only as told by your health care provider. ? Take a multivitamin if told by your health care provider. ? Do not use herbal or dietary supplements unless they are approved by your health care provider. Eating and drinking ? Avoid heavy meals in the evening. ? Eat a well-balanced diet, which includes lean proteins, whole grains, plenty of fruits and vegetables, and low-fat dairy products. ? Avoid eating or drinking too many products with caffeine in them. ? Avoid alcohol. ? Drink enough fluid to keep your urine pale yellow. Activity ? Exercise regularly, as told by your health care provider. ? Use or practice techniques to help you relax, such as yoga, melissa chi, meditation, or massage therapy. Lifestyle ? Change situations that cause you stress. Try to keep your work and personal schedules in balance. ? Do not use recreational or illegal drugs. General instructions ? Monitor your fatigue for any changes. ? Go to bed and get up at the same time every day. ? Avoid fatigue by pacing yourself during the day and getting enough sleep at night. ? Maintain a healthy weight. Contact a health care provider if: ? Your fatigue does not get better. ? You have a fever. ? You suddenly lose or gain weight. ? You have headaches. ? You have trouble falling asleep or sleeping through the night. ? You feel angry, guilty, anxious, or sad. ? You have swelling in your legs or another part of your body. Get help right away if: ? You feel confused, feel like you might faint, or faint. ? Your vision is blurry or you have a severe headache. ? You have severe pain in your abdomen, your back, or the area between your waist and hips (pelvis). ? You have chest pain, shortness of breath, or an irregular or fast heartbeat. ? You are unable to urinate, or you urinate less than normal. ? You have abnormal bleeding from the rectum, nose, lungs, nipples, or, if you are female, the vagina. ? You vomit blood. ? You have thoughts about hurting yourself or others. These symptoms may be an emergency. Get help right away. Call 911. ? Do not wait to see if the symptoms will go away. ? Do not drive yourself to the hospital. Get help right away if you feel like you may hurt yourself or others, or have thoughts about taking your own life. Go to your nearest emergency room or: ? Call 911. ? Call the National Suicide Prevention Lifeline at or 815. This is open 24 hours a day. ? Text the Crisis Text Line at 816733. Summary ? If you have fatigue, you feel tired all the time and have a lack of energy or a lack of motivation. ? Fatigue may make it difficult to start or complete tasks because of exhaustion. ? Long-term (chronic) or extreme fatigue may be a symptom of a medical condition. ? Exercise regularly, as told by your health care provider. ? Change situations that cause you stress. Try to keep your work and personal schedules in balance. This information is not intended to replace advice given to you by your health care provider. Make sure you discuss any questions you have with your health care provider. Document Revised: 07/03/2022 Document Reviewed: 07/03/2022 [employer] Patient Education ? 2022 [employer]. Nutrition BMI for Adults What is BMI? [...] or may increase the risk for medical p (more content not included)... [facility] 05-06-2024 Note Oncology Progress No te Chief Complaint Malignant neoplasm, unspecified; patient would like to know if needs refill on carafate medication, and concerns about blood pressure. 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 History of Present Illness [place] is a 78-year-old male with a PMH of hypertension, hyperlipidemia, TIAs, chronic kidney disease, coronary artery disease status post stent x 1-about 2 years ago, obesity, and exposure to [place]. Patient denies past or present use of cigarettes, or alcohol. He presented initially in February 2024 to the ED with complaints of vomiting blood x2, with associated burping, nausea, vomiting, and diarrhea. He denies personal history of ulcers. He was admitted to the floor for further evaluation with the dx of hematemesis, weakness, and diarrhea. Gastroenterology was consulted and an EGD was completed on 03/09/2024. 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 Esophageal mass is in the GE junction mass from 35 to 41 cm from the teeth, taking about 50% of the circumference of the esophagus. There was mild antral gastritis. Multiple biopsies were taken, currently awaiting results. Ct C/A/P 03/10/24 revealed: LESION OF THE DISTAL ESOPHAGUS/GASTROESOPHAGEAL JUNCTION MEASURING APPROXIMATELY 3 CM IS MOST CONCERNING FOR MALIGNANCY. 1.5 CM HYPODENSE LESION WITHIN SEGMENT IVB OF THE LIVER CONCERNING FOR MALIGNANCY AND WOULD BE BETTER EVALUATED WITH MRI WITH CONTRAST. THE PROSTATE APPEARS MILDLY ENLARGED. POSTERIOR BLADDER WALL LESION VERSUS PROSTATE NODULE INDENTING UPON THE URINARY BLADDER. COLONIC DIVERTICULOSIS WITHOUT DIVERTICULITIS. Pathology report form the EGD revealed: Final Diagnosis A. 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 - Pending immunohistochemical stains (CD45, CDX-2, CK7, CK20, CK5/6, P40, Chromogranin, Synaptophysin, Ki67). B. STOMACH, ANTRUM, BIOPSY: - Antral- type gastric mucosa with mild chronic inactive gastritis. - Pending Helicobacter pylori immunohistochemical stain. 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 Appropriate positive controls reviewed. Clinicopathological correlation is recommended. 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 Patient denied any choking on food or dysphagia or odynophagia. He denied any more hematemesis, but gets occasional nausea. PET CT 03/26/24: PET CT scan done on 03/26/2024 at [facility] revealed: Hypermetabolic distal esophageal lesions compatible with known neoplasm. Metastatic hepatic lesions. Possible metastasis to the adrenal gland and bone. Small retroperitoneal lymph node at the upper abdomen with is subthreshold increased FDG uptake. Indeterminate findings involving both testes and prostate. Clinical correlation is suggested. MRI liver 03/31/24: enlarging liver lesions consistent with metastatic disease. MRI brain 04/14/24: No acute intracranial process or suspicious enhancement. He started C1 of Carboplatin and Etoposide on 04/16/24. His insurance did not approve Tecentriq since it is not lung primary. He is here for toxicity check. He feels great and denied any complaints or pain in spine or abdomen. no fevers or infections. 05/06/24: He was admitted to the hospital on 04/27/24 with fevers 100.7 started afternoon of 04/27/24 with fatigue and dizziness, lowered to the ground while he was returning to his home from outside. he was pancultured, CXR done and was negative, was started on IV Vancomycin and Zosyn. He had received C1 of carboplatin and Etoposide from 04/16/24 through 04/18/24. ANC of 0.00 on 04/28/24, acevedo cultures were done and were negative. CXR is unremarkable. Patient was started on Zosyn plus Vancomycin. Zosyn was changed to Cefepime for wider coverage for neutropenia. No new complaints other what mentioned above. 14 points RS were reviewed and are otherwise negative. Review of Systems General: Patient denied fevers or headaches or dizziness. Lymphatic: No enlarged lymphadenopathy. Cardiovascular: Patient denied CP, SOB or leg edema. Respiratory: no cough or SOB or hemoptysis. GI: Positive for nausea, vomiting, hematemesis and iva (more content not included)... [facility] 05-05-2024 Note Microbiology PROCEDURE: Blood Culture Charcoal [R1] SOURCE: Blood BODY SITE: Arm R COLLECTED DATE/TIME: 04/27/2024 20:47 EDT RECEIVED DATE/TIME: 04/27/2024 22:00 EDT START DATE/TIME: 04/27/2024 22:00 EDT FREE TEXT SOURCE: rt Angel Guerrero DO, DO, Kaylinn A FINAL REPORTS Final Report [] Verified Date/Time: 05/05/2024 00:00 EDT No growth at 7 days. Performing Locations R1: This test was performed at: [facility], [address] [place] [address], [id number] [place] [address], [facility] Comment on above: Performed By: #### 1 [id number] #### [facility] [address] [place] [id number] 05-05-2024 Note Microbiology PROCEDURE: Blood Culture Charcoal [R1] SOURCE: Blood BODY SITE: COLLECTED DATE/TIME: 04/27/2024 21:15 EDT RECEIVED DATE/TIME: 04/27/2024 22:00 EDT START DATE/TIME: 04/27/2024 22:01 EDT FREE TEXT SOURCE: PORT Dokken DO, Kaylinn A Dokken DO, Kaylinn A FINAL REPORTS Final Report [] Verified Date/Time: 05/05/2024 00:00 EDT No growth at 7 days. Performing Locations R1: This test was performed at: [facility], [address] [place] [address], [address] [place] [address], [facility] Comment on above: Performed By: #### 1 [id number] #### [facility] [address] [place] [id number] 05-05-2024 Note Microbiology PROCEDURE: Blood Culture Charcoal [R1] SOURCE: Blood BODY SITE: Arm R COLLECTED DATE/TIME: 04/27/2024 20:47 EDT RECEIVED DATE/TIME: 04/27/2024 22:00 EDT START DATE/TIME: 04/27/2024 22:00 EDT FREE TEXT SOURCE: Peripheral vein site #2 Dokken DO, Kaylinn A Dokken DO, Kaylinn A FINAL REPORTS Final Report [] Verified Date/Time: 05/05/2024 00:00 EDT No growth at 7 days. Performing Locations R1: [facility], [address] [place] [address], [id number] [place] [address], [facility] Comment on above: Performed By: #### 1 [id number] #### [facility] [address] [place] [id number] 05-05-2024 Note Microbiology PROCEDURE: Blood Culture Charcoal [R1] SOURCE: Blood BODY SITE: Shoulder COLLECTED DATE/TIME: 04/27/2024 21:15 EDT RECEIVED DATE/TIME: 04/27/2024 22:00 EDT START DATE/TIME: 04/27/2024 22:01 EDT FREE TEXT SOURCE: Peripheral vein site #1 Angel Carter DO, DO, Kaylinn A FINAL REPORTS Final Report [] Verified Date/Time: 05/05/2024 00:00 EDT No growth at 7 days. Performing Locations R1: This test was performed at: [facility], [address] [place] [address], [id number] , [facility] Comment on above: Performed By: #### 1 [id number] #### [facility] [address] [place] [id number] 05-01-2024 Evaluation + Plan note Extrac janusz from: Title:Discharge Note Author:Vangie Coffey III, DO Date:05/01/24 Discharge To, Anticipated II - Home with responsible caregiver Discharged to - Home with family care Transported by, Anticipated - Family Prescriptions isosorbide mononitrate 30 mg ER Tab, 30 mg= 1 tab(s), Oral, qAM Levaquin 500 mg Tab, 500 mg= 1 tab(s), Oral, q24hr ondansetron 8 mg Tab, 8 mg, Oral, q8hr, PRN, 3 refills Outpatient physical therapy, [address] Tab, 40 mg= 1 tab(s), Oral, Daily, 11 refills prochlorperazine 10 mg Tab, 10 mg, Oral, q6hr, PRN, 3 refills Home D3, 125 mcg, Oral, Daily Lopressor, 50 mg (take one- half tablet), Oral, BID magnesium oxide, 420 mg, Oral, Once a day (at bedtime) simvastatin, 10 mg, Oral, Daily With When Contact Information Mallory Henry Additional Instructions: Follow up as scheduled. Betina Sampson Within 7 to 10 days Additional Instructions: Call for followup appointment Neutropenic Fever Neutropenic Fever Extracted from: Title:APSO Note Author:DAVID ODONNELLKARENKo sari Date:04/30/24 PLAN: 1. Neutropenic fever (D70.9: Neutropenia, unspecified) Consult heme/onc appreciated. Continue Neupogen 480 mcg subcu daily until ANC count is over 1000 IV Zosyn changed to cefepime 2 g IV every 8 hours Continue IV vancomycin with pharmacy to dose Blood cultures prelim neg Discussed with Dr.Al Henry pt ANC 1400 today. Hold x 1 more day. If ANC remains greater than 1000 can discharge home on Levaquin x 10 days. if cultures remain negative and no fevers x 24hr. No need to continue Neupogen w/increased counts. -Follow up with Dr Henry at our clinic one week after he is discharged form the hospital. 2. Weakness (R53.1: Weakness) Likely due to above along with hypotension on admission which has now improved. PT/OT to eval, treat and make recommendations. Ordered: [facility] Prescription, Outpatient physical therapy, Eval, treat and make recommendations, Print Requisition, Compound 3. 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 Noted bladder wall abnormality was felt by Dr. Elam to be due to BPH 4. Pancytopenia (D61.818: Other pancytopenia) Secondary to chemotherapy. Will monitor 5. Chronic kidney disease (N18.9: Chronic kidney disease, unspecified) Will avoid nephrotoxins and monitor for stability 6. Coronary artery disease (I25.10: Atherosclerotic heart disease of [place] coronary artery without angina pectoris) stenting 2 years ago and states he was scheduled in the coming week for a stress study but per his description was to be done as a form of monitoring not because of any clinical suspicion of progression of disease. Imdur, metoprolol, statin Extracted from: Title:APSO Note Author:DAVID ODONNELLKARENKo sari Date:04/29/24 PLAN: 1. Neutropenic fever (D70.9: Neutropenia, unspecified) Consult heme/onc appreciated. Continue Neupogen 480 mcg subcu daily until ANC count is over 1000 IV Zosyn changed to cefepime 2 g IV every 8 hours Continue IV vancomycin with pharmacy to dose Blood cultures prelim neg -Patient can be discharged once ANC is over 1000, assuming his repeated cultures are negative if first cultures are positive and assuming no fever for 24 hours prior to discharge. -Follow up with Dr Henry at our clinic one week after he is discharged form the hospital. 2. Weakness (R53.1: Weakness) Likely due to above along with hypotension on admission which has now improved. PT/OT to eval, treat and make recommendations. [facility], Outpatient physical therapy, Eval, treat and make recommendations, Print Requisition, Compound 3. 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 Noted bladder wall abnormality was felt by Dr. Elam to be due to BPH 4. Pancytopenia (D61.818: Other pancytopenia) Secondary to chemotherapy. Will monitor 5. Chronic kidney disease (N18.9: Chronic kidney disease, unspecified) Will avoid nephrotoxins and monitor for stability 6. Coronary artery disease (I25.10: Atherosclerotic heart disease of [place] coronary artery without angina pectoris) stenting 2 years ago and states he was scheduled in the coming week for a stress study but per his description was to be done as a form of monitoring not because of any clinical suspicion of progression of disease. Imdur, metoprolol, statin Extracted from: Title:Oncology Consult Note Author:Elaine DELONG , Mallory Michaels Date:04/28/24 1. Neutropenic fever (D70.9: Neutropenia, unspecified) 2. Weakness (R53.1: Weakness) 3. 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 Pancytopenia (D61.818: Other pancytopenia) - chemo related. 5. Chronic kidney disease (N18.9: Chronic kidney disease, unspecified) 6. Coronary artery disease (I25.10: Atherosclerotic heart disease of [place] coronary artery without angina pectoris) 7. 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 He is now admitted on 04/27/24 with fever, fatigue associated with severe neutropenia with ANC of 0.00 on 04/28/24, acevedo cultures were done and results pending. CXR is unremarkable. Patient was started on Zosyn plus Vancomycin. His PET CT 03/26/24 at [facility] revealed: Hypermetabolic distal esophageal lesions compatible with known neoplasm. Metastatic hepatic lesions. Possible metastasis to the adrenal gland and bone. Small retroperitoneal lymph node at the upper abdomen with is subthreshold increased FDG uptake. Indeterminate findings involving both testes and prostate. Clinical correlation is suggested. MRI liver 03/31/24: enlarging liver lesions consistent with metastatic disease. MRI brain 04/14/24: No acute intracranial process or suspicious enhancement. He started C1 of Carboplatin and Etoposide on 04/16/24. His insurance did not approve Tecentriq since it is not lung primary. He is here for toxicity check. PD-L1 was negative less than 1%. HER2 was canceled by labs since it was not the typical esophageal cancer. Seen by urology 04/01/24 for evaluation likely with cystoscopy of that posterior wall of the bladder lesion. They are following observation with plan for KUB in 12/2024. Recommendations and plan: Neupogen 480 mcg SC daily was added today and it should continue till ANC is over 1000. Please change his Zosyn to Cefepime 2 gram IV every 8 hours along with IV vancomycin still cultures results reveals the etiology of his fever or sepsis then can titrate antibiotics accordingly. Can be discharged form the hospital once ANC is over 1000 assuming his repeated cultures are negative if first cultures are positive and assuming no fever for 24 hours prior to discharge. My plan is to lower his Carboplatin and Etoposide doses by 20% starting with C2 whenever he is ready to proceed with C2 as he needs to have his CBCD recovered before proceeding with C2 chemo. Plan is 6 cycles total. Plan scans after C3 and C6. Plan Radiation to T2 T3 if becomes symptomatic there. Follow up with me at our clinic one week after he is discharged form the hospital. Extracted from: Title:Admission H & P Author:Zachary YBARRA DO Date:04/28/24 1. Neutropenic fever (D70.9: Neutropenia, unspecified) Agree with empiric Zosyn, also agree with vancomycin with patient's port. There is no physical examination or historical symptoms to suggest localized source. UA is negative, chest x-ray demonstrates no infiltrate however is not uncommon with neutropenia. Patient is in reverse isolation. This is the 11th day after his first cycle of planned 6 cycles of chemotherapy. Will monitor for anticipated recovery. Will monitor hemodynamic stability. Await blood and urine cultures Ordered: piperacillin-tazobactam + Sodium Chloride 0.9% intravenous solution 50 mL, 3.375 gm = 1 EA, IV Piggyback, q6hrFT, Routine, Start date 04/28/24 6:00:00 EDT, 100 mL/hr, Infuse over 30 minute(s), 04/28/24 4:57:00 EDT vancomycin, PHARMACY TO DOSE, Injection, IV, As Directed, Routine, Start date 04/28/24 4:58:00 EDT 2. Weakness (R53.1: Weakness) This was transient my suspicion is that this was due to transient hypotension. Patient did have an isolated blood pressure in the emergency department of 93/57. Note patient states he chronically has intermittent symptoms of lightheadedness when he gets up too quick. Symptoms were precipitated when he was outside got up walked 15 feet into the home. Denied any chest pain. EKG demonstrates no acute suspicious changes. 2 sets cardiac enzymes are within normal limits. Will consult with physical therapy 3. 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 Noted bladder wall abnormality was felt by Dr. Elam to be due to BPH 4. Pancytopenia (D61.818: Other pancytopenia) Secondary to chemotherapy. Will monitor 5. Chronic kidney disease (N18.9: Chronic kidney disease, unspecified) Creatinine 1.3 is slightly more elevated than last check 1.1. Had considered dehydration though not technically satisfying prerenal indices with a BUN less than 26, urine specific gravity was not elevated. Will avoid nephrotoxins and monitor for stability in light of transient lower blood pressure above 6. Coronary artery disease (I25.10: Atherosclerotic heart disease of [place] coronary artery without angina pectoris) Note EKG demonstrated no acute suspicious abnormalities. 2 sets cardiac enzymes were negative. Patient states he had stenting 2 years ago and states he was scheduled in the coming week for a stress study but per his description was to be done as a form of monitoring not because of any clinical suspicion of progression of disease. Patient advises that his aspirin was stopped a year ago but he cannot recall why. He has not recognizing any other antiplatelet names. Prior med list looking at the chart includes tetanus but unable to verify as his took his phone home which has a list of his medications. Part of the chart suggest patient had been on metoprolol and Imdur but would looking at the external pharmacy report these meds not recorded. Await confirmation of home meds 7. History of BPH (Z87.438: Personal history of other diseases of male genital organs) Patient does admit to nocturia. Await confirmation of home meds Orders: acetaminophen, 650 mg = 2 tab(s), Tab, Oral, q6hr PRN Pain, Routine, Start date 04/28/24 5:00:00 EDT, 04/28/24 5:00:00 EDT pantoprazole, 40 mg = 1 tab(s), Tab-DR, Oral, Daily, Routine, Start date 04/28/24 9:00:00 EDT, 04/28/24 4:59:00 EDT Sodium Chloride 0.9% intravenous solution 1,000 mL, 1,000 mL, IV, 75 mL/hr, Routine, Start date 04/28/24 5:00:00 EDT, 13.3 hour(s), Total volume (mL): 1,000, 90.8 kg, 2.06, m2 Basic Metabolic Panel Bedside Commode Cardiac Monitoring CBC w/ Auto Diff Notify Provider Vital Signs Notify Provider Vital Signs Physical Therapy Evaluate Patient, Develop a Plan of Care and Implement Plan Place in Status Precautions Regular Diet Resuscitation Status - Full Vital Signs Weight Patient is admitted as a general inpatient with anticipation he will require greater than 2 midnight stay Extracted from: Title:ED Note Author:Brittanie Barajas PA-C Date:04/27/24 1. Neutropenic sepsis (A41.9 : Sepsis, unspecified organism) 2. 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) Neutropenia, unspecified (D70.9: Neutropenia, unspecified) Orders: piperacillin-tazobactam + Sodium Chloride 0.9% intravenous solution 50 mL, 3.375 gm = 1 EA, Injection, IV Piggyback, Once, Stop date 04/27/24 21:06:00 EDT, STAT, Start date 04/27/24 21:06:00 EDT, 100 mL/hr, Infuse over 30 minute(s) Sodium Chloride 0.9% intravenous solution 1,000 mL, 1,000 mL, IV, 1,000 mL/hr, STAT, Start date 04/27/24 20:34:00 EDT, 1 hour(s), Total volume (mL): 1,000, 90.8 kg, 2.06, m2 Sodium Chloride 0.9% intravenous solution 1,000 mL, 1,000 mL, IV, 1,000 mL/hr, STAT, Start date 04/27/24 20:33:00 EDT, 1 hour(s), Total volume (mL): 1,000, 90.8 kg, 2.06, m2 vancomycin + Generic Diluent 400 mL, 2,000 mg = 400 mL, Soln-IV, IV Piggyback, Once, Stop date 04/27/24 22:00:00 EDT, Start date 04/27/24 22:00:00 EDT, 200 mL/hr, Infuse over 2 hour(s) Future Appointments Appointment Date:05/05/2024 02:30:00 PM Scheduled Provider: Location:.ONCOLOGY Appointment Type:ONC Lab Port (FT) Appointment Date:05/06/2024 10:20:00 AM Scheduled Provider:Elaine DELONG, Mallory Michaels Location:.ONCOLOGY Appointment Type:ONC Office Visit 20 (FT) Appointment Date:05/06/2024 11:00:00 AM Scheduled Provider: Location:.ONCOLOGY Appointment Type:ONC Carbo/SINGLE STAYER OPERATOR 16 (FT) Appointment Date:05/07/2024 01:00:00 PM Scheduled Provider: Location:.ONCOLOGY Appointment Type:ONC Etoposide (FT) Appointment Date:05/08/2024 02:00:00 PM Scheduled Provider: Location:.ONCOLOGY Appointment Type:ONC Etoposide (FT) Appointment Date:05/12/2024 02:00:00 PM Scheduled Provider: Location:.ONCOLOGY Appointment Type:ONC Lab Port (FT) Appointment Date:05/12/2024 03:00:00 PM Scheduled Provider:Betina Sampson MD Location:[facility] Appointment Type: Hospital Follow Up w/TCM Appointment Date:05/19/2024 02:30:00 PM Scheduled Provider: [facility] Type:ONC Lab Port (FT) Appointment Date:05/27/2024 02:00:00 PM Scheduled Provider: [facility] Type:ONC Lab Port (FT) Appointment Date:07/08/2024 08:00:00 AM Scheduled Provider: Location:[facility] Appointment Type: Medicare Wellness Subsequent Appointment Date:10/20/2024 10:15:00 AM Scheduled Provider:Betina Sampson MD Location:[facility] Appointment Type: Open Appointment Date:12/26/2024 08:00:00 AM Scheduled Provider:Zachary ELAM MD Location:[facility] Appointment Type:URO Office Visit Diagnostic Tests Pending * Path. Review 05/01/24 * Vancomycin Level Trough 05/03/24 Future Scheduled Tests Laboratory* CBC w/ Auto Diff 04/29/24 * CBC w/ Auto Diff 05/06/24 * CBC w/ Auto Diff 05/13/24 * CBC w/ Auto Diff 05/20/24 * CBC w/ Auto Diff 05/27/24 * CBC w/ Auto Diff 06/03/24 * CBC w/ Auto Diff 06/10/24 * CBC w/ Auto Diff 06/17/24 * CBC w/ Auto Diff 06/24/24 * CBC w/ Auto Diff 07/01/24 * CBC w/ Auto Diff 07/08/24 * CBC w/ Auto Diff 07/15/24 * CBC w/ Auto Diff 07/22/24 * CBC w/ Auto Diff 07/29/24 * CBC w/ Auto Diff 08/05/24 * CBC w/ Auto Diff 08/12/24 * CBC w/ Auto Diff 08/19/24 * CBC w/ Auto Diff 08/26/24 * CBC w/ Auto Diff 05/06/24 * Comprehensive Metabolic Panel 04/29/24 * Comprehensive Metabolic Panel 05/06/24 * Comprehensive Metabolic Panel 05/13/24 * Comprehensive Metabolic Panel 05/20/24 * Comprehensive Metabolic Panel 05/27/24 * Comprehensive Metabolic Panel 06/03/24 * Comprehensive Metabolic Panel 06/10/24 * Comprehensive Metabolic Panel 06/17/24 * Comprehensive Metabolic Panel 06/24/24 * Comprehensive Metabolic Panel 07/01/24 * Comprehensive Metabolic Panel 07/08/24 * Comprehensive Metabolic Panel 07/15/24 * Comprehensive Metabolic Panel 07/22/24 * Comprehensive Metabolic Panel 07/29/24 * Comprehensive Metabolic Panel 08/05/24 * Comprehensive Metabolic Panel 08/12/24 * Comprehensive Metabolic Panel 08/19/24 * Comprehensive Metabolic Panel 08/26/24 * Comprehensive Metabolic Panel 05/06/24 * Ferritin 05/06/24 * Iron Level 05/06/24 * Iron Percent Saturation 05/06/24 * Transferrin 05/06/24 Radiology* NM PET w/ CT Scan Whole Body 03/17/24 * CT Abdomen/Pelvis w/ Contrast 05/20/24 * CT Abdomen/Pelvis w/ Contrast 08/19/24 * CT Chest w/ Contrast 05/20/24 * CT Chest w/ Contrast 08/19/24 [facility] 08-08-2024 Hospital Discharge instructions Patient Education 05/01/2024 11:49:22 Neutropenic Fever Neutropenic Fever Neutropenic fever is a type of fever that can develop when you have very low levels of neutrophils.Neutrophils are a type of white blood cells. They are made in the spongy tissue inside the bones (bone marrow). They help the body fight infection. This condition is called neutropenia. When you have neutropenia, you could be in danger of a severe infection and neutropenic fever. Neutropenic fever can be a medical emergency and must be treated right away with antibiotic medicines. What are the causes? This condition is caused by severe neutropenia. This can occur if the amount of neutrophils in yourblood is very low, putting you at risk of serious infections. What increases the risk? The following factors may make you more likely to develop this condition: Cancer. Cancer treatments, such as radiation or chemotherapy. Viral infections. Medicines, such as phenytoin. Vitamin B12 deficiency. Diseases of the bone marrow. Environmental toxins, such as insecticides. What are the signs or symptoms? The main symptom of this condition is fever. If other symptoms are present, they are usually causedby an underlying infection. Symptoms of an infection may include: Chills. Cough. Swollen glands. Mouth ulcers. Rash or skin infection. Skin may be red, swollen, or painful. Abdominal or rectal pain. Frequent urination or pain or burning with urination. How is this diagnosed? This condition may be diagnosed based on the results of: Blood tests. These may include: ?A complete blood count (CBC) and a differential white blood count (WBC). ?Peripheral smear. This test involves checking a blood sample under a microscope. Cultures. These are tests to check whether germs will grow in samples of blood, urine, or other body fluids. These may be done to check for a source of infection. Chest X-rays. How is this treated? Treatment for this condition may be started as soon as you get diagnosed with neutropenic fever, even if your health care provider is still looking for the source of infection. You may have to stop taking any medicine that could be causing neutropenic fever. If you have high-risk neutropenic fever, you will receive one or more antibiotics through an IV in the hospital. If you have low-risk neutropenic fever, you may be treated at home. Treatment may involve: ?Taking antibiotics by mouth (orally). ?Receiving IV antibiotics that are given by a health care provider who visits your home. If your health care provider finds a specific cause of infection, you may be switched to antibiotics that work best against those bacteria. If a fungal infection is found, your medicine will be changed to an antifungal medicine. If your fever goes away in 3 5 days, you may have to take medicine for about 7 days. If your fever does not go away after 3 5 days, you may have to take medicine for a longer period. If your fever is caused by cancer medicines (chemotherapy), you may need to take a certain medicine(white blood cell growth factors) that helps prevent fever. Follow these instructions at home: Take znha-yia-jhvharo and prescription medicines only as told by your health care provider. Take your antibiotic medicine as told by your health care provider. Do not stop taking the antibiotic even if you start to feel better. Drink enough fluid to keep your urine pale yellow. This helps to prevent dehydration. Wash your hands often with soap and water for at least 20 seconds. Make sure others who come in contact with you also wash their hands. If soap and water are not available, use hand bindery worker. Take steps to reduce your risk of injury or infection. Follow any precautions as told by your health care provider. Keep all follow-up visits. This is important. ?If you are being treated with oral antibiotics at home, you may need to return to your health careprovider every day to have your CBC checked. You may have to do this until your fever gets better. Contact a health care provider if: You have chills. You have a fever. You have signs or symptoms of an infection. Get help right away if: You have trouble breathing. You have chest pain. You feel faint or dizzy. You faint. You become confused or disoriented. You have an infection that is not getting better or is getting worse. These symptoms may represent a serious problem that is an emergency. Do not wait to see if the symptoms will go away. Get medical help right away. Call your local emergency services (911 in the [place] Do not drive yourself to the hospital. Summary Neutropenic fever is a type of fever that can develop when you have a very low number of white blood cells called neutrophils. Neutropenic fever must be treated right away with antibiotic medicines. Causes of this condition include cancers of the blood and bone marrow, as well as medicines to treat cancer (chemotherapy). Take steps to reduce your risk of injury or infection. Follow any precautions as told by your health care provider. This information is not intended to replace advice given to you by your health care provider. Make sure you discuss any questions you have with your health care provider. Document Revised: 03/08/2022 Document Reviewed: 03/08/2022 [employer] Patient Education 2022 [employer]. 05/01/2024 11:49:21 Neutropenic Fever Neutropenic Fever Neutropenic fever is a type of fever that can develop when you have very low levels of neutrophils.Neutrophils are a type of white blood cells. They are made in the spongy tissue inside the bones (bone marrow). They help the body fight infection. This condition is called neutropenia. When you have neutropenia, you could be in danger of a severe infection and neutropenic fever. Neutropenic fever can be a medical emergency and must be treated right away with antibiotic medicines. What are the causes? This condition is caused by severe neutropenia. This can occur if the amount of neutrophils in yourblood is very low, putting you at risk of serious infections. What increases the risk? The following factors may make you more likely to develop this condition: Cancer. Cancer treatments, such as radiation or chemotherapy. Viral infections. Medicines, such as phenytoin. Vitamin B12 deficiency. Diseases of the bone marrow. Environmental toxins, such as insecticides. What are the signs or symptoms? The main symptom of this condition is fever. If other symptoms are present, they are usually causedby an underlying infection. Symptoms of an infection may include: Chills. Cough. Swollen glands. Mouth ulcers. Rash or skin infection. Skin may be red, swollen, or painful. Abdominal or rectal pain. Frequent urination or pain or burning with urination. How is this diagnosed? This condition may be diagnosed based on the results of: Blood tests. These may include: ?A complete blood count (CBC) and a differential white blood count (WBC). ?Peripheral smear. This test involves checking a blood sample under a microscope. Cultures. These are tests to check whether germs will grow in samples of blood, urine, or other body fluids. These may be done to check for a source of infection. Chest X-rays. How is this treated? Treatment for this condition may be started as soon as you get diagnosed with neutropenic fever, even if your health care provider is still looking for the source of infection. You may have to stop taking any medicine that could be causing neutropenic fever. If you have high-risk neutropenic fever, you will receive one or more antibiotics through an IV in the hospital. If you have low-risk neutropenic fever, you may be treated at home. Treatment may involve: ?Taking antibiotics by mouth (orally). ?Receiving IV antibiotics that are given by a health care provider who visits your home. If your health care provider finds a specific cause of infection, you may be switched to antibiotics that work best against those bacteria. If a fungal infection is found, your medicine will be changed to an antifungal medicine. If your fever goes away in 3 5 days, you may have to take medicine for about 7 days. If your fever does not go away after 3 5 days, you may have to take medicine for a longer period. If your fever is caused by cancer medicines (chemotherapy), you may need to take a certain medicine(white blood cell growth factors) that helps prevent fever. Follow these instructions at home: Take bvxc-kyj-vbypsnf and prescription medicines only as told by your health care provider. Take your antibiotic medicine as told by your health care provider. Do not stop taking the antibiotic even if you start to feel better. Drink enough fluid to keep your urine pale yellow. This helps to prevent dehydration. Wash your hands often with soap and water for at least 20 seconds. Make sure others who come in contact with you also wash their hands. If soap and water are not available, use hand bindery worker. Take steps to reduce your risk of injury or infection. Follow any precautions as told by your health care provider. Keep all follow-up visits. This is important. ?If you are being treated with oral antibiotics at home, you may need to return to your health careprovider every day to have your CBC checked. You may have to do this until your fever gets better. Contact a health care provider if: You have chills. You have a fever. You have signs or symptoms of an infection. Get help right away if: You have trouble breathing. You have chest pain. You feel faint or dizzy. You faint. You become confused or disoriented. You have an infection that is not getting better or is getting worse. These symptoms may represent a serious problem that is an emergency. Do not wait to see if the symptoms will go away. Get medical help right away. Call your local emergency services (911 in the [place] Do not drive yourself to the hospital. Summary Neutropenic fever is a type of fever that can develop when you have a very low number of white blood cells called neutrophils. Neutropenic fever must be treated right away with antibiotic medicines. Causes of this condition include cancers of the blood and bone marrow, as well as medicines to treat cancer (chemotherapy). Take steps to reduce your risk of injury or infection. Follow any precautions as told by your health care provider. This information is not intended to replace advice given to you by your health care provider. Make sure you discuss any questions you have with your health care provider. Document Revised: 03/08/2022 Document Reviewed: 03/08/2022 [employer] Patient Education 2022 [employer]. Follow Up Care 04/27/2024 19:35:46 With:Betina Sampson [facility] [place] [address] Business (2) When:05/12/2024 15:00:00 Comments:Call for followup appointment With:Mallory Henry Address:Unknown When: Unknown Comments:Follow up as scheduled. [facility] 08-08-2024 NoteDischarge Summary Admission and Discharge Information Admit Date/Time:04/27/2024 23:28 Admitting Physician - Zachary YBARRA DO Consulting Physician - Terell Zapata DO Admitting Diagnoses: Discharge Order Date Discharge Patient - Ordered -- 05/01/24 11:59:00 EDT, home Discharge Diagnoses 1. Neutropenic fever, 04/28/2024 2. Weakness, 04/28/2024 3. Primary neuroendocrine carcinoma of esophagus, 04/27/2024 4. Pancytopenia, 04/28/2024 5. Chronic kidney disease, 04/28/2024 6. Coronary artery disease, 04/28/2024 Dizziness, 04/27/2024 Fever - Immunocompromised > 75 years, 04/27/2024 Syncope/Near syncope, 04/27/2024 Procedure History Insertion of peripherally inserted central venous access device, with subcutaneous port; age 5 years or older (04/16/2024), Esophagogastroduodenoscopy (03/09/2024), Cystoscopic laser lithotripsy of ureteric calculus (05/24/2023), ESWL of kidney (05/03/2023), Cystoscopic insertion of ureteric stent ( 04/07/2023), Placement of stent in cardiac conduit (11/2017), Colonoscopy (2017), Carpal tunnel syndrome of left wrist, Carpal tunnel syndrome of right wrist, Kidney stone, Port. 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 He has been getting evaluated and treated with Dr. Livier Mcclain and his PET/CT from March showed hepatic mets and possible mets to adrenal gland and bone. Started carboplatin and etoposide in late March. On admission, hehad severe neutropenia with an ANC of 0.00 on 04/28/2024. He was started on broad-spectrum antibiotics and heme-onc was consulted. Blood cultures are negative x 2. His last documented fever was 38.1 on04/29/24. He received Neupogen injections while inpatient as well. His ANC count improved to 5.5 on mo rning of discharge on 05/01/2024. He had been afebrile for almost 48 hours. He stated he felt well and desired to be discharged. He was medically stable for discharge home on 05/01/2024. He was discharged with Levaquin 500 milligrams p.o. daily x 10 days on heme-onc recommendation. He needs to follow-up with his PCP in 7 to 10 days and heme-onc as scheduled. Procedures and Treatment Provided BP and ANC improved. Consider decreasing beta felix if he still continues to have lightheadedness. Services Consulted Consult to Hematology/Oncology (Hematology/Oncology Consult) - Ordered -- 04/28/24 10:24:00 EDT, [facility] Physical Exam Vitals & Measurements T: 36.7 ?C(Oral) TMIN: 36.7 ?C(Oral) TMAX: 36.9 ?C(Axillary) HR: 86(Apical) RR: 18 BP: 118/84 SpO2:96% General: alert, no acute distress. pleasant and conversational Skin: warm, dry Head: no trauma, normocephalic Neck: Trachea midline, no adenopathy, no tenderness Eye: normal conjunctiva, sclera clear ENMT: oral mucosa moist, hearing-aids present Cardiovascular: regular rate and rhythm, normal peripheral perfusion Respiratory: Lungs CTA, respirations non labored Chest wall: no deformity. Gastrointestinal: soft, non distended, no tenderness, no guarding. Back: No tenderness, Normal ROM, Normal alignment. Extremities: no deformity, no trauma Neurological: oriented x 4, LOC appropriate for age, CN II-XII intact, motor strength equal & normal bilaterally, sensation equal & normal bilaterally, speech normal Psychiatric: cooperative, affect appropriate for age, normal judgement, normal psychiatric thoughts. Tests Performed Path. Review -- Results Pending -- Vancomycin Level Trough -- Results Pending -- XR Chest Single View Please visit your patient portal for your results or contact your primary care physician. Discharge Plan Discharge Disposition Discharge To, Anticipated II - Home with responsible caregiver Discharged to - Home with family care Transported by, Anticipated - Family Discharge Medication List Prescriptions isosorbide mononitrate 30 mg ER Tab, 30 mg= 1 tab(s), Oral, qAM Levaquin 500 mg Tab, 500 mg= 1 tab(s), Oral, q24hr ondansetron 8 mg Tab, 8 mg, Oral, q8hr, PRN, 3 refills Outpatient physical therapy, [address] Tab, 40 mg= 1 tab(s), Oral, Daily, 11 refills prochlorperazine 10 mg Tab, 10 mg, Oral, q6hr, PRN, 3 refills Home D3, 125 mcg, Oral, Daily Lopressor, 50 mg (take one- half tablet), Oral, BID magnesium oxide, 420 mg, Oral, Once a day (at bedtime) simvastatin, 10 mg, Oral, Daily Follow-up With When Contact Information Mallory Henry Additional Instructions: Follow up as scheduled. Betina Sampson Within 7 to 10 days Additional Instructions: Call for followup appointment Patient E (more content not included)...[facility] HospitalComment on above:Result Comment: Electronically Signed By: Demetrio Coffey III, DO\.br\Date and Time Signed: 05/01/24 12:01 [id number] NoteProgress Note - Pharmacy Vancomycin Pharmacy to Dose Consult Note Indication: Neutropenic Fever Goal Range: AUC/SHITAL: 400 - 600 RECOMMENDATIONS/ PLAN: Pharmacy consulted for vancomycin dosing for [place] Corrigan, a 78 Years old, MALE who is being treated with vancomycin for neutropenic fever. 1. VANCO STATUS: Vancomycin therapy is still active, today is day 4 of treatment. Patient is currently receiving 1500 mg iv q 24 hrs last dose given 04/29 @ 2258. 2. VANCO LEVEL: Peak-30 mcg/ml drawn 04/30 @ 0129. Trough-9 mcg/ml drawn 04/30 @ 2233. AUC calculated at 433 mcg*hr/ml. 3. DOSING RECS: Continue 1500 mg iv every 24 hrs. 4. NEXT LEVEL: No further levels have been ordered. We will follow patient renal function, vancomycin levels and doses with you during the course of therapy. Additional recommendations will appear in follow up notes. If you have any questions, please contact the pharmacy at [phone]. Age: 78 Years Allergies: NKA Thank You, Nelson Arriola [facility]DFMer[facility] Health [facility] NoteProgress Note-Physician Assessment/Plan PLAN: 1. Neutropenic fever (D70.9: Neutropenia, unspecified) Consult heme/onc appreciated. Continue Neupogen 480 mcg subcu daily until ANC count is over 1000 IV Zosyn changed to cefepime 2 g IV every 8 hours Continue IV vancomycin with pharmacy to dose Blood cultures prelim neg Discussed with Dr.Al Henry pt ANC 1400 today. Hold x 1 more day. If ANC remains greater than 1000can discharge home on Levaquin x 10 days. if cultures remain negative and no fevers x 24hr. No needto continue Neupogen w/increased counts. -Follow up with Dr Henry at our clinic one week after he is discharged form the hospital. 2. Weakness (R53.1: Weakness) Likely due to above along with hypotension on admission which has now improved. PT/OT to eval, treat and make recommendations. Ordered: [facility] Prescription, Outpatient physical therapy, Eval, treat and make recommendations, Print Requisition, Compound 3. 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 Noted bladder wall abnormality was felt by Dr. Elam to be due to BPH 4. Pancytopenia (D61.818: Other pancytopenia) Secondary to chemotherapy. Will monitor 5. Chronic kidney disease (N18.9: Chronic kidney disease, unspecified) Will avoid nephrotoxins and monitor for stability 6. Coronary artery disease (I25.10: Atherosclerotic heart disease of [place] coronary artery withoutangina pectoris) stenting 2 years ago and states he was scheduled in the coming week for a stress study but per his description was to be done as a form of monitoring not because of any clinical suspicion of progression of disease. Imdur, metoprolol, statin Subjective Pt seen this AM while sitting up to the edge of the bed. Pt denies CP, SOB, Fevers, chills. ANC 1400 today. If >1000 tomorrow can go per oncology. Objective Vitals & Measurements T: 36.7 ?C(Axillary) TMIN: 36.7 ?C(Axillary) TMAX: 38.1 ?C(Oral) HR: 71(Monitored) RR: 18 BP: 115/67 SpO2: 98% WT: 91.1 kg Intake & Output This visit (24 hour periods starting at 07:00 EDT) 04/30/24 * 04/29/24 04/28/24 Total Summary Intake mL -- 419.82 -- Output mL -- 1,300 801 Fluid Balance -- -880.18 -801 Intake (3) Generic Diluent, vancomycin mL -- 300 -- Sodium Chloride 0.9% intravenous solution 1,000 mL mL -- 69.82 -- Sodium Chloride 0.9%, cefepime mL -- 50 -- Total -- 419.82 -- Output (1) Urine Voided mL -- 1,300 801 Total -- 1,300 801 Counts (1) Stool Count -- 1 1 * This column has not completed the indicated time period. Physical Exam General: Alert, calm, NAD Eyes: PERRLA. HEENT: Mucous membrane pink, moist, Normal tongue. Neck: Trachea midline, neck supple, no JVD, no bruit Lungs: on RA, lungs CTA Cardio: Regular S1, S2, no murmur Pulses: Normal capillary refill Abdomen: Soft, non-distended, non-tender, + BS x4 Musculoskeletal: No deformity or scoliosis noted. Normal ROM for age. Integumentary: Warm, dry, intact Extremity: No edema Neurologic: Alert, oriented x 4 follows commands Mental status: Pleasant & cooperative Lab Results WBC: 2 E9/L Critical (04/30/24 05:37:00) RBC: 3.5 E12/L Low (04/30/24 05:37:00) HGB: 10.6 gm/dL Low (04/30/24 05:37:00) Hct: 30.2 % Low (04/30/24 05:37:00) MCV: 86.3 fL (04/30/24 05:37:00) MCH: 30.2 pg (04/30/24 05:37:00) MCHC: 35 gm/dL (04/30/24 05:37:00) RDW: 14.8 % High (04/30/24 05:37:00) Platelet: 100 E9/L Low (04/30/24 05:37:00) MPV: 7.2 fL (04/30/24 05:37:00) Segs Man: 1 % Low (04/30/24 05:37:00) Band Man: 6 % (04/30/24 05:37:00) Lymph Man: 58 % High (04/30/24 05:37:00) Monocyte Man: 7 % (04/30/24 05:37:00) Eos Man: 7 % (04/30/24 05:37:00) Basophil Man: 2 % (04/30/24 05:37:00) [place] Man: 2 % High (04/30/24 05:37:00) Myelo Man: 1 % High (04/30/24 05:37:00) React Lymph Man: 16 % High (04/30/24 05:37:00) NRBC Man: 1 % High (04/30/24 05:37:00) Segs Abs Man: 0.1 E9/L (04/30/24 05:37:00) Lymph Abs Man: 1.5 E9/L (04/30/24 05:37:00) [place] Abs Man: 0.1 E9/L Low (04/30/24 05:37:00) Eos Abs Man: 0.1 E9/L (04/30/24 05:37:00) Basophil Abs Man: 0 E9/L (04/30/24 05:37:00) RBC Morph: SEE MORPHOLOGY (04/30/24 05:37:00) Hypochromasia: PRESENT (04/30/24 05:37:00) Polychromasia: PRESENT (04/30/24 05:37:00) Toxic Gran: PRESENT (04/30/24 05:37:00) [place] Bodies: PRESENT (04/30/24 05:37:00) Glucose Lvl: 95 mg/dL (04/30/24 05:37:00) BUN: 17 mg/dL (04/30/24 05:37:00) Creatinine: 1.1 mg/dL (04/30/24 05:37:00) eGFR: 68 mL/min/1.73 m2 (04/30/24 05:37:00) BUN/Creat Ratio: 16 (04/30/24 05:37:00) Sodium Lvl: 137 mmol/L (04/30/24 05:37:00) Potassium Lvl: 4 mmol/L (04/30/24 05:37:00) Chloride: 106 mmol/L (04/30/24 05:37:00) CO2: 24 mmol/L (04/30/24 05:37:00) AGAP: 11 mEq/L (04/30/24 05:37:00) Calciu (more content not included)...[facility] HospitalComment on above:Result Comment: Electronically Signed By: Catarina ESCALANTE\.br\Date and Time Signed: 04/30/24 13:54 EDT\.br\Electronically Co- Signed By: Misael Osorio DO\.br\Date and Time Co-Signed: 04/30/24 14:10 EDT 04-30-2024 NoteProgress Note-Physician Assessment/Plan PLAN: 1. Neutropenic fever (D70.9: Neutropenia, unspecified) Consult heme/onc appreciated. Continue Neupogen 480 mcg subcu daily until ANC count is over 1000 IV Zosyn changed to cefepime 2 g IV every 8 hours Continue IV vancomycin with pharmacy to dose Blood cultures prelim neg -Patient can be discharged once ANC is over 1000, assuming his repeated cultures are negative if first cultures are positive and assuming no fever for 24 hours prior to discharge. -Follow up with Dr Henry at our clinic one week after he is discharged form the hospital. 2. Weakness (R53.1: Weakness) Likely due to above along with hypotension on admission which has now improved. PT/OT to eval, treat and make recommendations. Ordered: [facility] Prescription, Outpatient physical therapy, Eval, treat and make recommendations, Print Requisition, Compound 3. 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 Noted bladder wall abnormality was felt by Dr. Elam to be due to BPH 4. Pancytopenia (D61.818: Other pancytopenia) Secondary to chemotherapy. Will monitor 5. Chronic kidney disease (N18.9: Chronic kidney disease, unspecified) Will avoid nephrotoxins and monitor for stability 6. Coronary artery disease (I25.10: Atherosclerotic heart disease of [place] coronary artery withoutangina pectoris) stenting 2 years ago and states he was scheduled in the coming week for a stress study but per his description was to be done as a form of monitoring not because of any clinical suspicion of progression of disease. Imdur, metoprolol, statin Subjective Patient sitting up in chair is present in room. Patient states he is feeling better. Still weak. Denies chest pain, shortness of breath. Objective Vitals & Measurements T: 36.6 ?C(Oral) TMIN: 36.6 ?C(Oral) TMAX: 37.6 ?C(Axillary) HR: 69(Monitored) RR: 16 BP: 108/67 SpO2: 98% WT: 90.7 kg Intake & Output This visit (24 hour periods starting at 07:00 EDT) 04/29/24 * 04/28/24 04/27/24 Total Summary Intake mL -- -- 1,550 Output mL 350 801 1,250 Fluid Balance -350 -801 300 Intake (4) Generic Diluent, acetaminophen mL -- -- 100 Generic Diluent, vancomycin mL -- -- 400 Sodium Chloride 0.9% mL -- -- 1,000 Sodium Chloride 0.9%, piperacillin-tazobactam mL -- -- 50 Total -- -- 1,550 Output (1) Urine Voided mL 350 801 1,250 Total 350 801 1,250 Counts (1) Stool Count -- 1 -- * This column has not completed the indicated time period. Physical Exam General: Alert, calm, NAD Eyes: PERRLA. HEENT: Mucous membrane pink, moist, Normal tongue. Neck: Trachea midline, neck supple, no JVD, no bruit Lungs: on RA, lungs CTA Cardio: Regular S1, S2, no murmur Pulses: Normal capillary refill Abdomen: Soft, non-distended, non-tender, + BS x4 Musculoskeletal: No deformity or scoliosis noted. Normal ROM for age. Integumentary: Warm, dry, intact Extremity: No edema Neurologic: Alert, oriented x 4 follows commands Mental status: Pleasant & cooperative Lab Results WBC: 1.1 E9/L Critical (04/29/24 06:25:00) RBC: 3.7 E12/L Low (04/29/24 06:25:00) HGB: 11.1 gm/dL Low (04/29/24:25:00) Hct: 32 % Low (04/29/24:25:00) MCV: 86.7 fL (04/29/24:25:00) MCH: 30 pg (04/29/24:25:00) MCHC: 34.7 gm/dL (04/29/24:25:00) RDW: 14.5 % High (04/29/24:25:00) Platelet: 98 E9/L Low (04/29/24:25:00) MPV: 7.3 fL (04/29/24:25:00) Neutro Auto: 6.3 % Low (04/29/24:25:) Lymph Auto: 73.3 % High (04/29/24:25:00) [place] Auto: 17.1 % High (04/29/24:25:00) Eos Auto: 2.3 % (04/29/24:25:) Basophil Auto: 1 % (04/29/24:25:) Neutro Absolute: 0.1 E9/L Low (04/29/24:25:00) Lymph Absolute: 0.8 E9/L Low (04/29/24:25:00) [place] Absolute: 0.2 E9/L (04/29/24:25:00) Eos Absolute: 0 E9/L (04/29/24:25:00) Basophil Absolute: 0 E9/L (04/29/24:25:00) Glucose Lvl: 102 mg/dL (04/29/24:25:00) BUN: 16 mg/dL (04/29/24:25:00) Creatinine: 1.1 mg/dL (04/29/24:25:00) eGFR: 68 mL/min/1.73 m2 (04/29/24:25:00) BUN/Creat Ratio: 14 (04/29/24:25:00) Sodium Lvl: 137 mmol/L (04/29/24 06:25:00) Potassium Lvl: 4 mmol/L (04/29/24:25:00) Chloride: 107 mmol/L (04/29/24 06:25:00) CO2: 24 mmol/L (04/29/24 06:25:00) AGAP: 10 mEq/L (04/29/24 06:25:00) Calcium Lvl: 8.4 mg/dL Low (04/29/24 06:25:00) Alk Phos: 55 Int._Unit/L (04/29/24 06:25:00) ALT: 18 Int._Unit/L (04/29/24 06:25:00) AST: 14 Int._Unit/L (04/29/24 06:25:00) Total Protein: 5.7 gm/dL Low (04/29/24 06:25:00) Albumin Lvl: 3.4 gm/dL (04/29/24:25:00) Globulin: 2.3 gm/dL (04/29/24 06:25:00) A/G Ratio: 1.5 (04/29/24 06:25:00) Bili Total: 0.7 mg/dL (04/29/24 06:25:00) Problem List/Past Medical History Ongoing A (more content not included)...[facility] HospitalComment on above: Result Comment: Electronically Signed By: Catarina ESCALANTE\.br\Date and Time Signed: 04/29/24 14:07 EDT\.br\Electronically Co-Signed By: Misael Osorio DO\.br\Date and Time Co-Signed: 04/30/24 12:33 [id number] Note Progress Note-Physician PATIENT UPDATE Patient admitted earlier this morning, see Dr. Ybarra's H&P, with neutropenic fevers. Patient has been seen by oncologist with the following recommendations: -Neupogen 480 mcg SC daily was added and should continue till ANC is over 1000. -IV Zosyn changed to Cefepime 2 gram IV every 8 hours along with IV vancomycin; follow up on blood cx -Patient can be discharged once ANC is over 1000, assuming his repeated cultures are negative if first cultures are positive and assuming no fever for 24 hours prior to discharge. -Lowering Carboplatin and Etoposide doses by 20% starting with C2 whenever he is ready to proceed with C2 as he needs to have his CBCD recovered before proceeding with C2 chemo. -Plan is 6 cycles total, plan scans after C3 and C6. Radiation to T2 T3 if becomes symptomatic there. -Follow up with Dr Henry at our clinic one week after he is discharged form the hospital. Patient is seen and examined, appears comfortable. No complaints to me. VSS. General: Alert, calm, NAD Eyes: PERRLA. HEENT: Mucous membrane pink, moist, Normal tongue. Neck: Trachea midline, neck supple, no JVD, no bruit Lungs: on RA, lungs CTA Cardio: Regular S1, S2, no murmur Pulses: Normal capillary refill Abdomen: Soft, non-distended, non-tender, + BS x4 Musculoskeletal: No deformity or scoliosis noted. Normal ROM for age. Integumentary: Warm, dry, intact Extremity: No edema Neurologic: Alert, oriented x 4 follows commands Mental status: Pleasant & cooperative Labs for am ordered, IV abx changed per oncologist recs.[facility] HospitalComment on above:Result Comment: Electronically Signed By: Brittani Neves CNP\.br\Date and Time Signed: 04/28/24 13:17 EDT\.br\Electronically Co-Signed By: Milton Gonzalez DO\.br\Date and Time Co-Signed: 04/28/24 16:07 [id number] NoteInterdisciplinary Note - PT PT Evaluation done this date. Pt. with on AM-PAC this date. Overall does well with functionalactivities but requires CGA due to some unsteadiness with gait. May benefit from use of AD, will make further recommendation on this after future treatments. Recommend home health PT.[facility] 04-28-2024 NoteConsultation Note Chief Complaint I got dizzy and passed out at home, I'm not sure why History of Present Illness [place] is a 78-year-old male with a PMH of hypertension, hyperlipidemia, TIAs, chronic kidney disease, coronary artery disease status post stent x 1-about 2 years ago, obesity, and exposure to Agent [place]. Patient denies past or present use of cigarettes, or alcohol. He was admitted to the hospital on 04/27/24 with fevers 100.7 started afternoon of 04/27/24 with fatigue and dizziness, lowered to the groung while he was returning to his home from outside. he was panculured, CXR done and was negative, was started on IV Vancomycin and zosyn. e had received C1 od carboplain and Etoposide from 04/16/24 through 04/18/24. He was initially admitted in February 2024 to the floor for further evaluation with the dx of hematemesis, weakness, and diarrhea. Gastroenterology was consulted and an EGD was completed on 03/09/2024. 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 Esophageal mass is in the GE junction mass from 35 to 41 cm from the teeth, taking about 50% of the circumference ofthe esophagus. There was mild antral gastritis. Multiple biopsies were taken, currently awaiting results. Ct C/A/P 03/10/24 revealed: LESION OF THE DISTAL ESOPHAGUS/GASTROESOPHAGEAL JUNCTION MEASURING APPROXIMATELY 3 CM IS MOST CONCERNING FOR MALIGNANCY. 1.5 CM HYPODENSE LESION WITHIN SEGMENT IVB OF THE LIVER CONCERNING FOR MALIGNANCY AND WOULD BE BETTER EVALUATED WITH MRI WITH CONTRAST. THE PROSTATE APPEARS MILDLY ENLARGED. POSTERIOR BLADDER WALL LESION VERSUS PROSTATE NODULE INDENTING UPON THE URINARY BLADDER. COLONIC DIVERTICULOSIS WITHOUT DIVERTICULITIS. Pathology report form the EGD revealed: Final Diagnosis A. 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 - Pending immunohistochemical stains (CD45, CDX-2, CK7, CK20, CK5/6, P40, Chromogranin, Synaptophysin, Ki67). B. STOMACH, ANTRUM, BIOPSY: - Antral- type gastric mucosa with mild chronic inactive gastritis. - Pending Helicobacter pylori immunohistochemical stain. His PET CT 03/26/24 at [facility] revealed: Hypermetabolic distal esophageal lesions compatible with known neoplasm. Metastatic hepatic lesions. Possible metastasis to the adrenal gland and bone. Small retroperitoneal lymph node at the upper abdomen with is subthreshold increased FDG uptake. Indeterminate findings involving both testes and prostate. Clinical correlation is suggested. MRI liver 03/31/24: enlarging liver lesions consistent with metastatic disease. MRI brain 04/14/24: No acute intracranial process or suspicious enhancement. He started C1 of Carboplatin and Etoposide on 04/16/24. His insurance did not approve Tecentriq since it is not lung primary. He is here for toxicity check. PD-L1 was negative less than 1%. HER2 was canceled by labs since it was not the typical esophageal cancer. Seen by urology 04/01/24 for evaluation likely with cystoscopy of that posterior wall of the bladder lesion. They are following observation with plan for KUB in 12/2024. 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 04/28/24: He is now admitted on 04/27/24 with fever, fatigue associated with severe neutropenia with ANC of 0.00 on 04/28/24, acevedo cultures were done and results pending. CXR is unremarkable. Patient was started onZosyn plus Vancomycin. No new complaints other what mentioned above. Review of Systems General: Patient denied, headaches or dizziness. Positive for fatigue, dizziness and fevers. Lymphatic: No enlarged lymphadenopathy. Cardiovascular: Patient denied CP, SOB or leg edema. Respiratory: no cough or SOB or hemoptysis. GI: negative for nausea, vomiting, hematemesis and diarrhea but no constipation or rectal bleeding or melena. : no gross hematuria or dysuria or frequency currently. Extremities: No edema of the lower extremities. Hematological: No focal masses anywhere and no easy bruising or bleeding tendency. Musculoskeletal: No deformities of the joints or the spine. Neurological: no vision changes or weakness or sensory changes. Physical Exam Vital Signs and Measurements T: 36.7 ?C (Axillary) HR: 73 (Monitored) RR: 17 BP: 139/82 SpO2: 98% HT: 167.64 cm WT: 90.2 kg BMI: 32.1 BSA: 2.05 ECOG PS 1. General: alert, no acute distress HENMT: Normocephalic, atraumatic. Neck: supple and no LAP or thyromegaly. Cardiovascular: regular rate and rhythm, No murmurs Respiratory: Lungs CTA, respirations non labored. Abdomen: Soft nontender nondistended without hepatosplenomegaly or masses clinically. Extremities: no deformity, no edema. Neurological: oriented x 4, L (more content not included)...[facility] HospitalComment on above:Result Comment: Electronically Signed By: Elaine DELONG, Mhd Yaser\.br\Date and Time Signed: 04/28/24 12:03 [id number] NoteProgress Note - Pharmacy Vancomycin Pharmacy to Dose Consult Note Indication: Neutropenic Fever Goal Range: AUC/SHITAL: 400 - 600 RECOMMENDATIONS/ PLAN: Pharmacy consulted for vancomycin dosing for [place] Corrigan, a 78 Years old, MALE who is being treated with vancomycin for neutropenic fever. 1. VANCO STATUS: Vancomycin therapy is still active, today is day 2 of treatment. Patient received Vancomycin 2000 mg IV x1 at 2242 on 04/27. 2. VANCO LEVEL: No vancomycin level has been drawn for this dosing regimen. 3. DOSING RECS: Start at 1500 mg iv every 24 hrs. 4. NEXT LEVEL: Peak is scheduled for 04/30 @ 0130 and the trough is scheduled for 04/30 @ 2230. We will follow patient renal function, vancomycin levels and doses with you during the course of therapy. Additional recommendations will appear in follow up notes. If you have any questions, please contact the pharmacy at [phone]. Age: 78 Years Allergies: NKA Thank You, Nelson Arriola PharmDFMercy Health 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 This was diagnosed when hospitalized in February for hematemesis. Upper endoscopy had demonstrated large fungating mass in the esophagus near the GE junction that measured 3 cm that was biopsied led to the diagnoses. Patient was last seen by on 22 April. Patient had received his first of a planned 6 cycles ofcarbo etoposide on 16 April. Chart suggest a history of coronary artery disease which she confirms having had a stent 2 years prior states this was not Lira. He states he was scheduled for a stress study this coming week to reassess his coronary artery status he denies having any recent suspicioussymptoms that prompted this test being scheduled. Per the chart he does have a history of hypertension and hyperlipidemia but he denied these diagnoses. Chart suggest he does have chronic kidney disease stage III AA, GERD, BPH, insomnia. Patient confirms he was recently seen by Dr. Elam for a bladder wall abnormality to rule out metastatic involvement but patient states Dr. Elam felt this was an indentation due to my prostate . Patient states he is uncertain of his medications stating thathe has a list on his phone but that his took his phone home with her. Patient states he was taken off aspirin but a year ago but he cannot recall why. He denies it being precipitated by any bleeding episodes. Patient presented to the emergency department this past evening with below Patient states was approximately noon on the date of presentation when he was outside. Get up to head towards his house states he walked approximately 15 feet felt very weak wobbly lost his balance and fell he did not injure himself describes actually lowering himself. He states he was incredibly weak and he could not get up for approximately 10 minutes. He was ultimately able to get up on his own and curiously denied any recurrence of his symptoms. He did not have any chest pain or shortness of breath at that time. He did not have any palpitations. He did not have any weakness or numbness onone side of body versus the other. He denies any symptoms to suggest lower extremity radiculopathy.He was brought to the emergency department where he was noted to be feverish and neutropenic. Patient was appropriately started on empiric antimicrobials including Zosyn and vancomycin in the emergency department. Patient denies any localizing signs and symptoms of infection including denying any headache or sore throat. He states occasionally has postnasal drip but this is chronic for him has not recently been worse. He denies any nausea vomiting or diarrhea. He denies any rash. He denies any cough or shortness of breath. He states he chronically has urgency this is not new for him he does admit to nocturia but he denies any dysuria. Review of Systems Constitutional: mild fever, no chills, no sweats, to severe weakness Skin: no Jaundice, no rash, no lesions, ENMT: no ear pain, no sore throat, no congestion, no hoarseness Respiratory: no shortness of breath, no cough, no orthopnea, no wheezing Cardiovascular: no chest pain, no palpitations, no edema Gastrointestinal: no nausea, no vomiting, no diarrhea, no GI bleeding Genitourinary: no dysuria, no hematuria, chronic urgency Musculoskeletal: no back pain, no trauma Neurologic: no headache, ? dizziness?off balance, no numbness, moderate to severe and transient weakness Psychiatric: mild sleeping problems, no irritability, no mood swings/depression. Heme/Lymph: no bleeding tendency, no bruising tendency, no petechiae, no swollen nodes Allergy/Immunologic: no seasonal allergies, no food allergies, no recurrent infections, moderate tosevere impaired immunity Additional ROS info: Except as noted in the above Review of Systems and in the History of Present Illness all other systems have been reviewed and are negative or noncontributory. Scoring Gonzalez Fall Risk Score: 60 High (04/28/24) Physical Exam Vitals & Measurements T: 36.6 ?C(Oral) TMIN: 36.6 ?C(Oral) TMAX: 38.5 ?C(Oral) HR: 69(Apical) RR: 17 BP: 111/72 SpO2: 97%HT: 167.64 cm WT: 90.2 kg General: alert, no acute distress. Patient is mildly hard of hearing Skin: warm, dry Head: no trauma, normocephalic Neck: Trachea midline, no adenopathy, no tenderness Eye: normal conjunctiva, sclera clear ENMT: TM's clear, oral mucosa moist, no pharyngeal erythema or exudate Cardiovascular: regular rate and rhythm, normal peripheral perfusion Respiratory: Lungs CTA, no rales rhonchi or wheeze respirations non labored Chest wall: no deformity. Inf (more content not included)...[facility] HospitalComment on above:Result Comment: Electronically Signed By: Zachary YBARRA DO.jean marie\Date and Time Signed: 04/28/24 05:06 [id number] NoteOncology Progress Note Chief Complaint Tox Check; Small cell carcinoma: has questions about treatment. 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 History of Present Illness [place] is a 78-year-old male with a PMH of hypertension, hyperlipidemia, TIAs, chronic kidney disease, coronary artery disease status post stent x 1-about 2 years ago, obesity, and exposure to [place]. Patient denies past or present use of cigarettes, or alcohol. He presented to the ED with complaints of vomiting blood x2, with associated burping, nausea, vomiting, and diarrhea. He denies personal history of ulcers. He was admitted to the floor for further evaluation with the dx of hematemesis, weakness, and diarrhea. Gastroenterology was consulted and an EGD was completed on 03/09/2024. 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 Esophageal mass is in the GE junction mass from 35 to 41 cm from the teeth, taking about 50% of the circumference of the esophagus. There was mild antral gastritis. Multiple biopsies were taken, currently awaiting results. Ct C/A/P 03/10/24 revealed: IMPRESSION: LESION OF THE DISTAL ESOPHAGUS/GASTROESOPHAGEAL JUNCTION MEASURING APPROXIMATELY 3 CM IS MOST CONCERNING FOR MALIGNANCY. 1.5 CM HYPODENSE LESION WITHIN SEGMENT IVB OF THE LIVER CONCERNING FOR MALIGNANCY AND WOULD BE BETTER EVALUATED WITH MRI WITH CONTRAST. THE PROSTATE APPEARS MILDLY ENLARGED. POSTERIOR BLADDER WALL LESION VERSUS PROSTATE NODULE INDENTING UPON THE URINARY BLADDER. COLONIC DIVERTICULOSIS WITHOUT DIVERTICULITIS. Pathology report form the EGD revealed: Final Diagnosis A. 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 - Pending immunohistochemical stains (CD45, CDX-2, CK7, CK20, CK5/6, P40, Chromogranin, Synaptophysin, Ki67). B. STOMACH, ANTRUM, BIOPSY: - Antral- type gastric mucosa with mild chronic inactive gastritis. - Pending Helicobacter pylori immunohistochemical stain. 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 Appropriate positive controls reviewed. Clinicopathological correlation is recommended. 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 Patient denied any choking on food or dysphagia or odynophagia. He denied any more hematemesis, butgets occasional nausea. PET CT 03/26/24: PET [facility] [facility]: Hypermetabolic distal esophageal lesions compatible with known neoplasm. Metastatic hepatic lesions. Possible metastasis to the adrenal gland and bone. Small retroperitoneal lymph node at the upper abdomen with is subthreshold increased FDG uptake. Indeterminate findings involving both testes and prostate. Clinical correlation is suggested. MRI liver 03/31/24: enlarging liver lesions consistent with metastatic disease. MRI brain 04/14/24: No acute intracranial process or suspicious enhancement. He started C1 of Carboplatin and Etoposide on 04/16/24. His insurance did not approve Tecentriq since it is not lung primary. He is here for toxicity check. He feels great and denied any complaints or pain in spine or abdomen. no fevers or infections. 14 points RS were reviewed and are otherwise negative. Review of Systems General: Patient denied fevers or headaches or dizziness. Lymphatic: No enlarged lymphadenopathy. Cardiovascular: Patient denied CP, SOB or leg edema. Respiratory: no cough or SOB or hemoptysis. GI: Positive for nausea, vomiting, hematemesis and diarrhea but no constipation or rectal bleeding or melena. : no gross hematuria or dysuria or frequency currently. Extremities: No edema of the lower extremities. Hematological: No focal masses anywhere and no easy bruising or bleeding tendency. Musculoskeletal: No deformities of the joints or the spine. Neurological: no vision changes or weakness (more content not included)...[facility]07-30-2024 Hospital Discharge instructions Patient Education 04/22/2024 08:34:08 Incidental Abnormal Radiological Finding Incidental Abnormal Radiological Finding An incidental abnormal radiological finding (IARF) is an unusual mass or tissue change that is found unexpectedly during an imaging test. IARFs are often found in the kidneys or lungs, but they can also be found in the heart, liver, breasts, brain, gallbladder, uterus, or other organs and tissues. IARFs can cause symptoms or be related to an undiagnosed illness. Most often, however, they do not cause symptoms and are not a cause for concern. What are common types of IARFs? There are many types of IARFs. Common types include: Lesions. A lesion is a change in tissue due to infection, tissue , or injury. Cysts. A cyst is a sac that is filled with fluid, crystals, or some other substance. Tumors. A tumor is a solid formation. Tumors can be cancerous (malignant) or non-cancerous (benign). Your health care provider may use medical terms to describe the finding. Ask your health care provider about any terms that you do not understand. Do I need further diagnosis? Your health care provider may recommend that you have tests to diagnose the cause of the IARF. Testing is recommended based on: The size and look of the IARF. Whether you have risk factors or medical conditions that increase your risk of problems. Whether you have symptoms or concerns. In many cases, testing is not needed if the IARF is a very small mass or tissue change. Small masses or changes do not often become a problem in the future. What type of testing may be needed? The following types of tests may be done when an IARF is found: Blood tests. Urine tests. Imaging tests, such as abdominal ultrasound, CT scan, or MRI. Biopsy. Tests and physical exams may be done once, or they may be done regularly for a period of time. Tests and exams that are done regularly are performed to show whether the mass or tissue change is growing and becoming a concern. What are common treatments? Treatment will depend on: The cause of the IARF. The location, size, and appearance of the IARF. Your age. Any underlying conditions or symptoms. Treatment is not always needed. Your health care provider may recommend monitoring through watchfulwaiting and regular tests and exams. If treatment is needed, it may include: Treatments to reduce the size of the abnormality. Biopsy or surgical removal of the mass or tissue. Treatment to address any underlying conditions. Follow these instructions at home: Stay calm, and be sure to ask questions. Make sure you understand the recommendations for monitoring and whether there is a reason for concern. Keep all follow-up visits as told by your health care provider. This is important. It will allow any problems to be found early. Summary An incidental abnormal radiological finding (IARF) is an unusual mass or tissue change that is found unexpectedly during an imaging test. Common types include lesions, cysts, and tumors. Your health care provider may recommend that you have tests to diagnose the cause of the IARF. Treatment will depend on the type of IARF and treatment is not always needed. This information is not intended to replace advice given to you by your health care provider. Make sure you discuss any questions you have with your health care provider. Document Revised: 03/22/2020 Document Reviewed: 03/22/2020 [employer] Patient Education 2022 [employer]. Follow Up Care 04/03/2024 11:04:36 With:PAPA DELONG, Zachary Meélndez, URL Address: [facility] [address] , [place] [address]- When: Unknown [facility] 07-30-2024 NotePatient Education Radiology Incidental Abnormal Radiological Finding An incidental abnormal radiological finding (IARF) is an unusual mass or tissue change that is found unexpectedly during an imaging test. IARFs are often found in the kidneys or lungs, but they can also be found in the heart, liver, breasts, brain, gallbladder, uterus, or other organs and tissues. IARFs can cause symptoms or be related to an undiagnosed illness. Most often, however, they do not cause symptoms and are not a cause for concern. What are common types of IARFs? There are many types of IARFs. Common types include: ? Lesions. A lesion is a change in tissue due to infection, tissue , or injury. ? Cysts. A cyst is a sac that is filled with fluid, crystals, or some other substance. ? Tumors. A tumor is a solid formation. Tumors can be cancerous (malignant) or non-cancerous (benign). Your health care provider may use medical terms to describe the finding. Ask your health care provider about any terms that you do not understand. Do I need further diagnosis? Your health care provider may recommend that you have tests to diagnose the cause of the IARF. Testing is recommended based on: ? The size and look of the IARF. ? Whether you have risk factors or medical conditions that increase your risk of problems. ? Whether you have symptoms or concerns. In many cases, testing is not needed if the IARF is a very small mass or tissue change. Small masses or changes do not often become a problem in the future. What type of testing may be needed? The following types of tests may be done when an IARF is found: ? Blood tests. ? Urine tests. ? Imaging tests, such as abdominal ultrasound, CT scan, or MRI. ? Biopsy. Tests and physical exams may be done once, or they may be done regularly for a period of time. Tests and exams that are done regularly are performed to show whether the mass or tissue change is growing and becoming a concern. What are common treatments? Treatment will depend on: ? The cause of the IARF. ? The location, size, and appearance of the IARF. ? Your age. ? Any underlying conditions or symptoms. Treatment is not always needed. Your health care provider may recommend monitoring through watchfulwaiting and regular tests and exams. If treatment is needed, it may include: ? Treatments to reduce the size of the abnormality. ? Biopsy or surgical removal of the mass or tissue. ? Treatment to address any underlying conditions. Follow these instructions at home: ? Stay calm, and be sure to ask questions. ? Make sure you understand the recommendations for monitoring and whether there is a reason for concern. ? Keep all follow-up visits as told by your health care provider. This is important. It will allow any problems to be found early. Summary ? An incidental abnormal radiological finding (IARF) is an unusual mass or tissue change that is found unexpectedly during an imaging test. ? Common types include lesions, cysts, and tumors. ? Your health care provider may recommend that you have tests to diagnose the cause of the IARF. ? Treatment will depend on the type of IARF and treatment is not always needed. This information is not intended to replace advice given to you by your health care provider. Make sure you discuss any questions you have with your health care provider. Document Revised: 03/22/2020 Document Reviewed: 03/22/2020 [employer] Patient Education ? 2022 [employer].[facility] 04-18-2024 Hospital Discharge instructions Follow Up Care 04/18/2024 13:31:14 With:Elaine DELONG, Mallory Michaels, MED, ONC Address: When: Unknown Comments:Proceed with cycle 2 of chemo today and daily for the 2 more days after today. Continue weekly labs.Return in 3 weeks for cycle 3 of chemo.Hold metoprolol on days that systolic blood pressure is lessthan 100. [facility] 07-25-2024 NoteProgress Note-Physician Patient: JAMAICA CORRIGAN Age: 78 years Sex: Male : 1945 Associated Diagnoses: None Author: Seth Spaulding Jr, DO Postoperative Information Postoperative disposition: Postoperative disposition: To PACU. Optimetrix number: Optimetrix number [id number]. Anesthetic utilized: General. Health Status Allergies: Allergic Reactions (Selected) No Known Medication Allergies Physical Examination Vital Signs 04/16/2024 13:42 EDT Heart Rate Monitored 66 bpm SpO2 98 % 04/16/2024 13:42 EDT Systolic Blood Pressure 127 mmHg Diastolic Blood Pressure 76 mmHg Mean Arterial Pressure, Monitered 93 mmHg 04/16/2024 13:42 EDT Respiratory Rate 15 br/min 04/16/2024 13:00 EDT Temperature Temporal Artery 36.6 DegC 04/16/2024 12:12 EDT Heart Rate Monitored 65 bpm SpO2 95 % 04/16/2024 12:12 EDT Systolic Blood Pressure 132 mmHg Diastolic Blood Pressure 76 mmHg Mean Arterial Pressure, Monitered 95 mmHg 04/16/2024 12:05 EDT Temperature Temporal Artery 36.7 DegC Heart Rate Monitored 65 bpm Respiratory Rate Monitored 14 br/min Systolic Blood Pressure 119 mmHg Diastolic Blood Pressure 70 mmHg Blood Pressure Location Left arm Mean Arterial Pressure, Cuff 86 mmHg SpO2 96 % Pain Assessment: Controlled. General: Awake, Alert, Appropriate. Respiratory: Adequate air exchange. Cardiovascular: Stable, Normal peripheral perfusion. Neurological: Normal sensory function, Normal motor function. Assessment Anesthetic outcome No anesthetic complications noted. Adequate pain relief. able to void without difficulty, able to ambulate with assist, tolerating PO intake, no N/V. Review / Management Condition: Stable. Plan Transfer/Discharge: Transfer/Discharge Discharge when meets criteria ( To home ).[facility]Result Comment: Electronically Signed By: Seth Spaulding Jr, DO\.br\Date and Time Signed: 04/17/24 01:09 EDT 04-16-2024 NoteProgress Note-Physician Patient: JAMAICA CORRIGANN: [birth year] Age: 78 years Sex: Male : 1945 Associated Diagnoses: None Author: Seth Spaulding Jr, DO Preoperative Information Anesthesia Preop Info: Time patient last ate or drank 04/16/2024 00:00:00. Anesthesia history: Patient history: None. Family history+: None. Informed consent: Signed by patient. Re-evaluation prior to induction: Initial evaluation reviewed: No significant change. Review of Systems Eye: Negative except as documented in history of present illness. Ear/Nose/Mouth/Throat: Negative except as documented in history of present illness. Respiratory: Negative except as documented in history of present illness. Cardiovascular: Negative except as documented in history of present illness. Musculoskeletal: Negative except as documented in history of present illness. Neurologic: Negative except as documented in history of present illness. Health Status Allergies: Allergic Reactions (Selected) No Known Medication Allergies Problem list: All Problems Vitamin D deficiency / SNOMED CT 55434378 / Confirmed Mild persistent asthma without complication / SNOMED CT 0567899200 / Confirmed TIA on medication / SNOMED CT 718036071 / Confirmed Hospital discharge follow-up / SNOMED CT 2661918971 / Confirmed Ureteral stone with hydronephrosis / SNOMED CT 6887978026 / Confirmed HLD (hyperlipidemia) / SNOMED CT 934971469 / Confirmed Malignant neoplasm of lower third of esophagus / SNOMED CT 701426826 / Confirmed Cancer of liver / SNOMED CT 411123626 / Confirmed Renal stone / SNOMED CT 056072386 / Confirmed 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 / SNOMED CT 2063971271 / Confirmed Hx of cardiac catheterization / SNOMED CT 6925602046 / Confirmed Hard of hearing / SNOMED CT 67200230 / Confirmed Primary hypertension / SNOMED CT 78449526 / Confirmed Dyspnea on exertion / SNOMED CT 326700530 / Confirmed Mild diastolic dysfunction / SNOMED CT 9294611 / Confirmed COVID / SNOMED CT 4037000224 / Confirmed CAD in [place] artery / SNOMED CT 71684182 / Confirmed Closed displaced fracture of shaft of right clavicle / SNOMED CT 415522424 / Confirmed 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 / SNOMED CT 6652780321 / Confirmed Added at the request of Dr. Sampson, per outpatient CDI policy. Chronic kidney disease, stage 3a / SNOMED CT 0290661473 / Confirmed Bradycardia / SNOMED CT 72026670 / Confirmed Canceled: Kidney stone / SNOMED CT 671291897 Canceled: HD (heloma durum) / SNOMED CT 79237866 Canceled: Excessive ear wax / SNOMED CT 555530 Histories Procedure history: Esophagogastroduodenoscopy ([id number]) on 03/09/2024 at 78 Years. Rt Laser Litho & Rt Stent Removal ([id number]) on 05/24/2023 at 77 Years. Rt ESWL ([id number]) on 05/03/2023 at 77 Years. Cysto/'Rt Stent Placement ([id number]) on 04/07/2023 at 77 Years. Colonoscopy ([id number]) in 2018 at 73 Years. Placement of stent in cardiac conduit ([id number]) in the month of 11/2017 at 72 Years. Carpal tunnel syndrome of left wrist ([id number]). Carpal tunnel syndrome of right wrist ([id number]). Kidney stone (052939546). Comments: 06/11/2023 11:40 EDT - Michelle Medina LPN ablation and stent is out April 2023 Social History Social & Psychosocial Habits Alcohol 04/04/2024 Risk Assessment: Denies Alcohol Use Substance Abuse 04/04/2024 Risk Assessment: Denies Substance Abuse Tobacco 04/04/2024 Tobacco Use: Never (less than 100 in l Smokeless tobacco use: Never Concerns about tobacco use in household: No . Physical Examination Airway: Mallampati classification: II (soft palate, fauces, uvula visible). Respiratory: adequate air exchange. Cardiovascular: Regular rhythm. Plan [place] [employer] Anesthesiologists (ASA) physical status classification: Class IV. Anesthetic Preoperative Plan: Anesthesia General.[facility] Comment on above:Result Comment: Electronically Signed By: Seth Spaulding Jr, DO\fredo\Date and Time Signed: 04/16/24 17:40 [id number] NotePatient Education - Text Infectious Disease Implanted Port Insertion, Care After The following information offers guidance on how to care for yourself after your procedure. Your health care provider may also give you more specific instructions. If you have problems or questions, contact your health care provider. What can I expect after the procedure? After the procedure, it is common to have: ? Discomfort at the port insertion site. ? Bruising on the skin over the port. This should improve over 3?4 days. Follow these instructions at home: Port care ? After your port is placed, you will get a sap hana developer's information card. The card has information about your port. Keep this card with you at all times. ? Take care of the port as told by your health care provider. Ask your health care provider if you or a family member can get training for taking care of the port at home. ? A home health care nurse will be be available to help care for the port. ? Make sure to remember what type of port you have. Incision care ? Follow instructions from your health care provider about how to take care of your port insertion site. Make sure you: ? Wash your hands with soap and water for at least 20 seconds before and after you change your bandage (dressing). If soap and water are not available, use hand bindery worker. ? Change your dressing as told by your health care provider. ? Leave stitches (sutures), skin glue, or adhesive strips in place. These skin closures may need tostay in place for 2 weeks or longer. If adhesive strip edges start to loosen and curl up, you may trim the loose edges. Do not remove adhesive strips completely unless your health care provider tellsyou to do that. ? Check your port insertion site every day for signs of infection. Check for: ? Redness, swelling, or pain. ? Fluid or blood. ? Warmth. ? Pus or a bad smell. Activity ? Return to your normal activities as told by your health care provider. Ask your health care provider what activities are safe for you. ? You may have to avoid lifting. Ask your health care provider how much you can safely lift. General instructions ? Take isrc-phz-aycrcgr and prescription medicines only as told by your health care provider. ? Do not take baths, swim, or use a hot tub until your health care provider approves. Ask your health care provider if you may take showers. You may only be allowed to take sponge baths. ? If you were given a sedative during the procedure, it can affect you for several hours. Do not drive or operate machinery until your health care provider says that it is safe. ? Wear a medical alert bracelet in case of an emergency. This will tell any health care providers that you have a port. ? Keep all follow-up visits. This is important. Contact a health care provider if: ? You cannot flush your port with saline as directed, or you cannot draw blood from the port. ? You have a fever or chills. ? You have redness, swelling, or pain around your port insertion site. ? You have fluid or blood coming from your port insertion site. ? Your port insertion site feels warm to the touch. ? You have pus or a bad smell coming from the port insertion site. Get help right away if: ? You have chest pain or shortness of breath. ? You have bleeding from your port that you cannot control. These symptoms may be an emergency. Get help right away. Call 911. ? Do not wait to see if the symptoms will go away. ? Do not drive yourself to the hospital. Summary ? Take care of the port as told by your health care provider. Keep the sap hana developer's information card with you at all times. ? Change your dressing as told by your health care provider. ? Contact a health care provider if you have a fever or chills or if you have redness, swelling, orpain around your port insertion site. ? Keep all follow-up visits. This information is not intended to replace advice given to you by your health care provider. Make sure you discuss any questions you have with your health care provider. Document Revised: 03/14/2022 Document Reviewed: 03/14/2022 [employer] Patient Education ? 2022 [employer].[facility] 04-16-2024 NoteH&P Update History and Physical Update H&P Reviewed. Patient seen and examined, appropriate for planned surgery, left sided port insertion 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 Bradycardia CAD in [place] artery Chronic kidney disease, stage 3a Closed displaced fracture of shaft of right clavicle COVID Dyspnea on exertion Hard of hearing 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 HLD (hyperlipidemia) Hospital discharge follow-up Hx of cardiac catheterization Malignant neoplasm of lower third of esophagus Mild diastolic dysfunction Mild persistent asthma without complication Primary hypertension Renal stone TIA on medication Ureteral stone with hydronephrosis Vitamin D deficiency Historical No qualifying data Procedure/Surgical History Esophagogastroduodenoscopy (03/09/2024), Cystoscopic laser lithotripsy of ureteric calculus (05/24/2023), ESWL of kidney (05/03/2023), Cystoscopic insertion of ureteric stent (04/07/2023), Placement of stent in cardiac conduit (11/2017), Colonoscopy (2017), Carpal tunnel syndrome of left wrist, Carpal tunnel syndrome of right wrist, Kidney stone. Medications Carafate 1 gram Tab, 1 gm= 1 tab(s), Oral, QID cefazolin additive + Sodium Chloride 0.9% intravenous solution 50 mL Cipro 500 mg Tab, 500 mg= 1 tab(s), Oral, Daily, Pre-arrival medication D3, 125 mcg, Oral, Daily HYDROmorphone 1 mg/mL injectable solution, 0.2 mg= 0.2 mL, IV Push, q2min, PRN isosorbide mononitrate 30 mg ER Tab, 30 mg= 1 tab(s), Oral, qAM Lactated Ringers IV Lashell 1000 mL 1,000 mL, 1000 mL, IV Lactated Ringers IV Lashell 1000 mL 1,000 mL, 1000 mL, IV Lopressor, 50 mg (take one- half tablet), Oral, BID magnesium oxide, 420 mg, Oral, Once a day (at bedtime) ondansetron 8 mg Tab, 8 mg= 1 tab(s), Oral, q8hr, PRN, 1 refills Pantopraz[address] Tab, 40 mg= 1 tab(s), Oral, BID prochlorperazine 10 mg Tab, 10 mg= 1 tab(s), Oral, q6hr, PRN, 1 refills promethazine additive 12.5 mg + Sodium Chloride 0.9% IV Lashell 50 mL (INT) 50 mL simvastatin, 10 mg, Oral, Daily Zero Hour, None, Day of Tx Allergies No Known Medication Allergies Social History Alcohol - Denies Alcohol Use, 01/17/2022 Substance Abuse - Denies Substance Abuse, 01/17/2022 Tobacco Never (less than 100 in lifetime) Tobacco Use:. Never Smokeless Tobacco Use:. Household tobacco concerns: No., 03/24/2024 Family History Diabetes mellitus type 2: Father.[facility]07[facility] Hospital Discharge instructions Follow Up Care 04/04/2024 11:05:29 With:Elaine DELONG, Mallory Michaels, MED, ONC Address: When: Unknown Comments:Continue Carbo Etoposide for 6 cycles total instead of 4 since Tecentriq is not approved by insurance.Plan scans after C3 and C6.Plan Radiation to T2 T3 if becomes symptomatic there.Follow labs weekly.RTC on C2D1. [facility] 2024 Hospital Discharge instructions Patient Education 03/24/2024 09:40:55 Soft-Food Eating Plan Soft-Food Eating Plan A soft-food eating plan includes foods that are safe and easy to chew and swallow. Your health careprovider or dietitian can help you find foods and flavors that fit into this plan. Follow this planuntil your health care provider or dietitian says it is safe to start eating other foods and food textures. What are tips for following this plan? Cooking Cook meats so they stay tender and moist. Use methods like braising, stewing, or baking in liquid. Cook vegetables and fruit until they are soft enough to be mashed with a fork. Peel soft, fresh fruits such as peaches, nectarines, and melons. When making soup, make sure chunks of meat and vegetables are smaller than inch. Reheat leftover foods slowly so that a tough crust does not form. General information Take small bites of food or cut food into pieces about inch or smaller. Bite- sized pieces of food are easier to chew and swallow. Eat moist foods. Avoid overly dry foods. Avoid foods that: ?Are difficult to swallow, such as dry, chunky, crispy, or sticky foods. ?Are difficult to chew, such as hard, tough, or stringy foods. ?Contain nuts, seeds, or many types of uncooked fruit. Follow instructions from your dietitian about the types of liquids that are safe for you to swallow. You may be allowed to have: ?Thick liquids only. This includes only liquids that are thicker than honey. ?Thin and thick liquids. This includes all beverages and foods that become liquid at room temperature. To make thick liquids: ?Purchase a commercial liquid thickening powder. These are available at grocery stores and pharmacies. ?Mix the thickener into liquids according to instructions on the label. ?Purchase ready-made thickened liquids. ?Thicken soup by pureeing, straining to remove chunks, and adding flour, potato flakes, or corn starch. ?Add commercial thickener to foods that become liquid at room temperature, such as milk shakes, yogurt, ice cream, gelatin, and sherbet. Ask your health care provider whether you need to take a fiber supplement. What foods should I eat? Fruits All canned and cooked fruits. Soft, peeled fresh fruits. Strawberries. Vegetables All soft-cooked vegetables. Shredded lettuce. Grains Breads, muffins, pancakes, or waffles moistened with syrup, jelly, or butter. Dry cereals well-moistened with milk. Moist, cooked cereals. Well-cooked pasta and rice. Meats and other proteins Tender, moist ground meat, poultry, or fish. Meat cooked in gravy or sauces. Eggs. Dairy Milk. Cream. Yogurt. Cottage cheese. Soft cheese without the rind. Sweets and desserts Ice cream. Milk shakes. Sherbet. Pudding. Fats and oils Butter. Margarine. [place], canola, sunflower, and grapeseed oil. Smooth salad dressing. Smooth creamcheese. Mayonnaise. Gravy. The items listed above may not be a complete list of foods and beverages you can eat. Contact a dietitian for more information. What foods should I avoid? Fruits Fresh fruits with skins or seeds, or both, such as apples, pears, and grapes. Stringy, high-pulp fruits, such as papaya, pineapple, coconut, and tabatha. Fruit leather and all dried fruit. Vegetables All raw vegetables. Cooked corn. Cooked vegetables that are tough or stringy. Tough, crisp, fried potatoes and potato skins. Grains Coarse or dry cereals, such as bran, granola, and shredded wheat. Tough or chewy crusty breads, such as [place] bread or baguettes. Breads with nuts, seeds, or fruit. Meats and other proteins Hard, dry sausages. Dry meat, poultry, or fish. Meats with gristle. Fish with bones. Fried meat or fish. Lunch meat and hotdogs. Nuts and seeds. [place] peanut butter or other nut butters. Dairy Yogurt with nuts or coconut. Sweets and desserts Cakes or cookies that are very dry or chewy. Desserts with dried fruit, nuts, or coconut. Fried pastries. Very rich pastries. Fats and oils Cream cheese with fruit or nuts. Salad dressings with seeds or chunks. The items listed above may not be a complete list of foods and beverages you should avoid. Contact a dietitian for more information. Summary A soft-food eating plan includes foods that are safe and easy to swallow. Generally, the foods should be soft enough to be mashed with a fork. Avoid foods that are dry, hard to chew, crunchy, sticky, stringy, or crispy. Ask your health care provider whether you need to thicken your liquids and if you need to take a fiber supplement. This information is not intended to replace advice given to you by your health care provider. Make sure you discuss any questions you have with your health care provider. Document Revised: 08/12/2021 Document Reviewed: 08/12/2021 [employer] Patient Education 2022 [employer]. 03/24/2024 09:33:04 Choking, Adult Choking, Adult Choking occurs when a food or object gets stuck in the throat or windpipe (trachea) and blocks the airway. If the airway is partly blocked, coughing will usually cause the food or object to come out.If the airway is completely blocked, immediate action is needed to make it come out. Obstruction ofthe airway can lead to respiratory failure and even if untreated. The kind of treatment you offer depends on the severity of the choking. A person has a complete airway blockage if he or she: Is holding his or her neck with both hands. This is considered a universal sign of choking. Is unable to breathe. Is making soft or high-pitched sounds while breathing. Is unable to cough or is coughing weakly, ineffectively, or silently. Is unable to cry, speak, or make sounds. Is turning blue or aleman. For partial airway blockage If a person has a partial airway blockage and he or she is coughing and is able to speak: Do not interfere. Allow coughing to clear the airway. Do not let him or her try to drink until the food or object comes out. Stay with the person until the food or object comes out. Watch for signs of choking (complete airway blockage). If the person shows signs of complete airway blockage, you should take action to help the person. For complete airway blockage If a person has a complete airway blockage, his or her life is in danger. A complete airway blockage causes breathing to stop. This is a medical emergency that requires fast, appropriate action by anyone who is available. Perform the Heimlich maneuver to save a person who is choking. The Heimlich maneuver, also called abdominal thrusts, uses pressure to force air from the abdomen into the throat to move the blockage. CPR for an unconscious person Do the following if the choking person is not breathing and either collapses or is found on the ground: 1.Shout for help. If someone responds, tell that person to call local emergency services (787 in [place] and look for an automated external defibrillator (AED). If no one responds, begin 2 minutes of CPR. 2.Make sure the person is lying on a firm, flat surface, facing up. Begin CPR, starting with 30 chest compressions and 2 breaths. Every time you open the airway to give rescue breaths, open the person's mouth. If you can see the food or object and it can be easily pulled out, remove it with your fingers. Do not try to remove the food or object if you cannot see it so you do not push it farther into the airway. 3.After 5 cycles or 2 minutes of CPR, call local emergency services (504 in [place] if a call has notalready been made. 4.Continue CPR until the person starts breathing or until help arrives. If you are chokin.Call local emergency services (469 in [place] Do not worry about communicating what is happening. Do not hang up the phone. Someone may be sent to help you anyway. 2.Perform the Heimlich maneuver on yourself. To do this, hold a fist against your abdomen and bend over a hard surface, such as a chair. Forcefully push your fist in and up until the food or object comes out. Prevention Chew food thoroughly. Know that older adults are at an increased risk of choking. They should chew smaller bites and cut their food into smaller portions. Avoid talking or laughing while you are chewing and swallowing. To be prepared if choking occurs, take a certified first-aid course to learn how to correctly perform the Heimlich maneuver. Contact a health care provider if: You have trouble swallowing food. You continue to have drooling after choking. You have persistent chest pain after choking. Get help right away if: You have problems breathing after choking stops. You are confused, persistently drowsy, or have lost consciousness at any point. You were given CPR. These symptoms may represent a serious problem that is an emergency. Do not wait to see if the symptoms will go away. Get medical help right away. Call your local emergency services (911 in the [place] Do not drive yourself to the hospital. Summary Choking occurs when a food or object gets stuck in the throat (trachea) and blocks the airway. Thisprevents breathing and can lead to respiratory arrest and even if untreated. If a person has a partial airway blockage and is able to talk and cough, do not interfere and do not allow the person to drink until the food or object comes out. If a person has a complete airway blockage, perform the Heimlich maneuver. Call local emergency services and take the person to a health care provider afterward especially if CPR was done. If the person is unconscious and not breathing, call local emergency services and perform CPR untilthe person breathes normally or until help arrives. This information is not intended to replace advice given to you by your health care provider. Make sure you discuss any questions you have with your health care provider. Document Revised: 11/15/2022 Document Reviewed: 10/15/2020 [employer] Patient Education 2022 [employer]. 03/24/2024 09:27:03 Implanted Port Insertion Implanted Port Insertion Implanted port insertion is a procedure to put in a port and catheter. The port is a device with aninjectable disc that can be accessed by your health care provider. The port is connected to a vein in the chest or neck by a small, thin tube (catheter). There are different types of ports. The implanted port may be used as a long-term IV access for: Medicines, such as chemotherapy. Fluids. Liquid nutrition, such as total parenteral nutrition (TPN). When you have a port, your health care provider can choose to use the port instead of veins in yourarms for these procedures. Tell a health care provider about: Any allergies you have. All medicines you are taking, especially blood thinners, as well as any vitamins, herbs, eye drops,creams, qohu-rbf-cpbrhfy medicines, and steroids. Any problems you or family members have had with anesthetic medicines. Any bleeding problems you have. Any surgeries you have had. Any medical conditions you have or have had, including diabetes or kidney problems. Whether you are or may be . What are the risks? Generally, this is a safe procedure. However, problems may occur, including: Allergic reactions to medicines or dyes. Damage to other structures or organs. Infection. Damage to the blood vessel, bruising, or bleeding at the puncture site. Blood clot. Breakdown of the skin over the port. A collection of air in the chest that can cause one of the lungs to collapse (pneumothorax). This is rare. What happens before the procedure? When to stop eating and drinking Follow instructions from your health care provider about what you may eat and drink before your procedure. These may include: 8 hours before your procedure ?Stop eating most foods. Do not eat meat, fried foods, or fatty foods. ?Eat only light foods, such as toast or crackers. ?All liquids are okay except energy drinks and alcohol. 6 hours before your procedure ?Stop eating. ?Drink only clear liquids, such as water, clear fruit juice, black coffee, plain tea, and sports drinks. ?Do not drink energy drinks or alcohol. 2 hours before your procedure ?Stop drinking all liquids. ?You may be allowed to take medicines with small sips of water. If you do not follow your health care provider's instructions, your procedure may be delayed or canceled. Medicines Ask your health care provider about: Changing or stopping your regular medicines. This is especially important if you are taking diabetes medicines or blood thinners. Taking medicines such as aspirin and ibuprofen. These medicines can thin your blood. Do not take these medicines unless your health care provider tells you to take them. Taking xeja-hqq-ekothhx medicines, vitamins, herbs, and supplements. General instructions If you will be going home right after the procedure, plan to have a responsible adult: ?Take you home from the hospital or clinic. You will not be allowed to drive. ?Care for you for the time you are told. You may have blood tests. Do not use any products that contain nicotine or tobacco for at least 4 weeks before the procedure.These products include cigarettes, chewing tobacco, and vaping devices, such as e-cigarettes. If you need help quitting, ask your health care provider. Ask your health care provider what steps will be taken to help prevent infection. These may include: ?Removing hair at the surgery site. ?Washing skin with a germ-killing soap. ?Taking antibiotic medicine. What happens during the procedure? An IV will be inserted into one of your veins. You will be given one or more of the following: ?A medicine to help you relax (sedative). ?A medicine to numb the area (local anesthetic). Two small incisions will be made to insert the port. ?One smaller incision will be made in your neck to get access to the vein where the catheter will lie. ?The other incision will be made in the upper chest. This is where the port will lie. The procedure may be done using continuous X-ray (fluoroscopy) or other imaging tools for guidance. The port and catheter will be placed. There may be a small, raised area where the port is placed. The port will be flushed with a saline solution, which is made of salt and water, and blood will bedrawn to make sure that the port is working correctly. The incisions will be closed. Bandages (dressings) may be placed over the incisions. The procedure may vary among health care providers and hospitals. What happens after the procedure? Your blood pressure, heart rate, breathing rate, and blood oxygen level will be monitored until youleave the hospital or clinic. If you were given a sedative during the procedure, it can affect you for several hours. Do not drive or operate machinery until your health care provider says that it is safe. You will be given a sap hana developer's information card for the type of port that you have. Keep this with you. Your port will need to be flushed and checked as told by your health care provider, usually every few weeks. A chest X-ray will be done to: ?Check the placement of the port. ?Make sure there is no injury to your lung. Summary Implanted port insertion is a procedure to put in a port and catheter. The implanted port is used as a long-term IV access. The port will need to be flushed and checked as told by your health care provider, usually every few weeks. Keep your sap hana developer's information card with you at all times. This information is not intended to replace advice given to you by your health care provider. Make sure you discuss any questions you have with your health care provider. Document Revised: 03/14/2022 Document Reviewed: 03/14/2022 [employer] Patient Education 2022 [employer]. Follow Up Care 03/13/2024 12:52:52 With:Elaine DELONG, LEAH Clark, ONC Address: When: Unknown Comments:Obtain a PET CT scan for initial staging.Obtain an MRI of the liver with and without contrast.Obtain a port.Add HER2 and PD-L1 to the biopsy.Referral to radiation oncology for evaluation and recommendation.Refer to tumor board for discussion.Referral to urology for evaluation likely with cystoscopyof that posterior wall of the bladder lesion. [facility]2024 NoteOncology Progress Note Chief Complaint New pt for GE junction mass, Pt and want to find out a plan for tx. History of Present Illness [place] is a 78-year-old male with a PMH of hypertension, hyperlipidemia, TIAs, chronic kidney disease, coronary artery disease status post stent x 1-about 2 years ago, obesity, and exposure to Agent [place]. Patient denies past or present use of cigarettes, or alcohol. He presented to the ED with complaints of vomiting blood x2, with associated burping, nausea, vomiting, and diarrhea. He denies personal history of ulcers. He was admitted to the floor for further evaluation with the dx of hematemesis, weakness, and diarrhea. Gastroenterology was consulted and an EGD was completed on 03/09/2024. 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 Esophageal mass is in the GE junction mass from 35 to 41 cm from the teeth, taking about 50% of the circumference of the esophagus. There was mild antral gastritis. Multiple biopsies were taken, currently awaiting results. Ct C/A/P 03/10/24 revealed: IMPRESSION: LESION OF THE DISTAL ESOPHAGUS/GASTROESOPHAGEAL JUNCTION MEASURING APPROXIMATELY 3 CM IS MOST CONCERNING FOR MALIGNANCY. 1.5 CM HYPODENSE LESION WITHIN SEGMENT IVB OF THE LIVER CONCERNING FOR MALIGNANCY AND WOULD BE BETTER EVALUATED WITH MRI WITH CONTRAST. THE PROSTATE APPEARS MILDLY ENLARGED. POSTERIOR BLADDER WALL LESION VERSUS PROSTATE NODULE INDENTING UPON THE URINARY BLADDER. COLONIC DIVERTICULOSIS WITHOUT DIVERTICULITIS. Pathology report form the EGD revealed: Final Diagnosis A. 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 - Pending immunohistochemical stains (CD45, CDX-2, CK7, CK20, CK5/6, P40, Chromogranin, Synaptophysin, Ki67). B. STOMACH, ANTRUM, BIOPSY: - Antral- type gastric mucosa with mild chronic inactive gastritis. - Pending Helicobacter pylori immunohistochemical stain. 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 Appropriate positive controls reviewed. Clinicopathological correlation is recommended. 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 Patient denied any choking on food or dysphagia or odynophagia. He denied any more hematemesis, butgets occasional nausea. 14 points RS were reviewed and are otherwise negative. Review of Systems General: Patient denied fevers or headaches or dizziness. Lymphatic: No enlarged lymphadenopathy. Cardiovascular: Patient denied CP, SOB or leg edema. Respiratory: no cough or SOB or hemoptysis. GI: Positive for nausea, vomiting, hematemesis and diarrhea but no constipation or rectal bleeding or melena. : no gross hematuria or dysuria or frequency currently. Extremities: No edema of the lower extremities. Hematological: No focal masses anywhere and no easy bruising or bleeding tendency. Musculoskeletal: No deformities of the joints or the spine. Neurological: no vision changes or weakness or sensory changes. Physical Exam ECOG PS 1. General: alert, no acute distress HENMT: Normocephalic, atraumatic. Neck: supple and no LAP or thyromegaly. Cardiovascular: regular rate and rhythm, No murmurs Respiratory: Lungs CTA, respirations non labored. Abdomen: Soft nontender nondistended without hepatosplenomegaly or masses clinically. Extremities: no deformity, no edema. Lymph system: Currently she has no lymphadenopathy in her cervical area subclavian area/axillary areas and inguinal areas bilaterally. Neurological: oriented x 4, LOC appropriate for age, CN II-XII intact, motor strength equal & normal bilaterally, sensation normal bilaterally, speech normal Skin: No rash. Psychiatric: Normal mood and interaction. Diagnoses 1. Malignant neoplasm of lower third of esophagus (C15.5: Malignant neoplasm of lower third of esophagus) With the presence of abnormalities in the posterior wall of the bladder and enlarged prostate as well as suspicious 1 and half centimeter hypodense lesion within the segment 4B of the liver concerning for metastatic disease. -This could be related to his exposure to agent Mariposa in the past. Plan: Obtain a PET CT scan for initial staging. Obtain an MRI of the liver with and without contrast. Obtain a port (more content not included)...[facility] 03-10-2024 Evaluation + Plan noteExtracted from: Title:Discharge Note Author:KRISH DELONG, Anai Munoz ate:03/10/24 Stable. Discharge To, Anticipated II - Home with responsible caregiver Discharged to - Home independently Home. Discharge Diet(s): Fat Modified- Low cholesterol, Low Sodium- 2000 mg (03/10/24 10:02:00) Prescriptions Carafate 1 gram Tab, 1 gm= 1 tab(s), Oral, QID isosorbide mononitrate 30 mg ER Tab, 30 mg= 1 tab(s), Oral, qAM Pantoprazole [address] Tab, 40 mg= 1 tab(s), Oral, BID Home Aspir 81, 81 mg, Oral, Daily D3, 125 mcg, Oral, Daily Lopressor, 50 mg (take one- half tablet), Oral, BID magnesium oxide, 420 mg, Oral, Once a day (at bedtime) simvastatin, 10 mg, Oral, Daily With When Contact Information Terell Zapata Within 1 to 2 weeks [facility] [address] [place] [address]- Additional Instructions: Call for followup appointment Honorio Gomez Within 5 to 7 days [address] [address]- [phone] Business (1) Additional Instructions: Call for followup appointment Betina Sampson Within 1 to [address] weeks [address] [place] [address]- Business (2) Additional Instructions: Call for followup appointment Gastrointestinal Bleeding Esophageal Cancer Extracted from: Title:Progress/SOAP Note Author:Brittani Kruger NP Date:03/09/24 Assessment and plan of care discussed with patient and family member at bedside. Will continue to monitor how pt does with swallowing on modified diet. Pt was informed of EGD findings. Will keep patient overnight and recheck H&H tomorrow a.m. lab draw. Informed family and patient that biopsy samples were sent for testing. 1. Hematemesis (K92.0: Hematemesis) -Hematemesis secondary to large esophageal mass -Gastroenterology consulted, pt on tumor board -Suspended aspirin -IV pantoprazole -Repeat H&H tomorrow a.m. labs -Hemiglobin stable today, 8.8, no evidence of anemia 2. Acute blood loss anemia (D62: Acute posthemorrhagic anemia) -Repeat H&H tomorrow a.m. labs -Hemiglobin stable today, 8.8, no evidence of anemia -Aspirin on hold 3. Weakness (R53.1: Weakness) -Present on admission -Supportive care -Up ad ashley -Encourage mobility and sit up to chair for meals 4. Diarrhea (R19.7: Diarrhea, unspecified) -Resolved 5. CAD in [place] artery (I25.10: Atherosclerotic heart disease of [place] coronary artery without angina pectoris) -Status post stent x 1 -Stable -Aspirin suspended -Continue on isosorbide, metoprolol, and statin 6. HLD (hyperlipidemia) (E78.2: Mixed hyperlipidemia) -Continue on simvastatin 7. Primary hypertension (I10: Essential (primary) hypertension) -Continue metoprolol -Continue isosorbide -Hydralazine PRN 8. TIA on medication (G45.9: Transient cerebral ischemic attack, unspecified) -History of TIAs, aspirin currently on hold due to above 9. Obese (E66.9: Obesity, unspecified) -Recommend therapeutic lifestyle modification changes 10. On deep vein thrombosis (DVT) prophylaxis (Z79.899: Other terminal carman (current) drug therapy) -Avoid heparin products due to #1 -SCD's ordered Plan: -Continue supportive treatment -Repeat morning labs to monitor H&H -Hold Aspirin -Medical oncology evaluation in the out-patient setting -CODE STATUS: FULL CODE Addendum by Mellissa Gonzalez DO on March 09, 2024 15:00:45 EDT Patient seen and examined with RINA student. Agree with below. Patient seen post EGD. Doing well and family member at the bedside. No further evidence or episodes of hematemesis. Taking GI soft. Constitutional: Awake and alert; oriented x 3 with no apparent distress or respiratory distress Head/neck: Neck supple with no palpable lymphadenopathy, bruits or masses; trachea midline Chest/lungs: Clear to auscultation bilaterally no wheezes or rhonchi noted bilaterally Cardiovascular: Regular rate and rhythm; normal S1-S2 with no murmur; no pitting edema and 2+ pulses bilaterally Gastrointestinal: Soft, nontender, nondistended, positive bowel sounds Neurological: Nonfocal; cranial nerves II through XII appear intact Psychological: Pleasant affect A/P: - as noted below - GI soft diet - repeat labs in AM; if stable can be discharged hoe - Tumor board and outpt staging with imaging - Holding aspirin - IV PPI BID and carafate qAC and qHS - Continue other meds as is - Addendum by Mellissa Gonzalez DO on March 09, 2024 15:13:02 EDT ERROR on summary; should read: 78-year-old male with hypertension, hyperlipidemia, coronary artery disease status post stent x 1 - 2 years ago, obesity presented with complaints of vomiting blood x 2, weakness, diarrhea x 1 day and is being admitted with acute upper gastrointestinal bleed/hematemesis, diarrhea, weakness Addendum by KRISH DELONG, Humble pro on March 10, 2024 09:02:55 EDT The patient's brought to my attention about another patient's information on her 's medical record. I was able to strike out the information as above. was made aware. Extracted from: Title:ANES Pre-operative Note 2022 Author:Seth Spaulding Jr, DO Date:03/09/24 Plan [place] [employer]esthesi[employer] (ASA) physical status classification: Class III. Anesthetic Preoperative Plan: Anesthesia General. Extracted from: Title:Admission H & P Author:KRISH DELONG, Tyrelanefo Date:03/08/24 78-year-old male with hypert ension, hyperlipidemia, coronary artery disease status post stent x 1 - 2 years ago, obesity presented with complaints of vomiting blood x 2, weakness, diarrhea x 1 day and is being admitted with acute upper gastrointestinal bleed/hematemesis, diarrhea, weakness. 1. Hematemesis (K92.0: Hematemesis) Hematemesis upper gastrointestinal bleed secondary to suspected Argelia-Wilson tear versus peptic ulcer disease. Admit to regular medical floor. Gastroenterology consulted. Suspended aspirin. Started patient on IV pantoprazole. Monitor hemoglobin and hematocrit. Type and screen. Ordered: Initial Hospital Care/Day Moderate 55 Minutes 14278 2. Acute blood loss anemia (D62: Acute posthemorrhagic anemia) Mild acute blood loss anemia secondary to above upper gastrointestinal bleed. No need for blood transfusion. Monitor hemoglobin and transfuse if hemoglobin less than 9 or patient is still actively bleeding. 3. Weakness (R53.1: Weakness) Secondary to above. Supportive care. Ordered: Initial Hospital Care/Day Moderate 55 Minutes 33424 4. Diarrhea (R19.7: Diarrhea, unspecified) Suspect secondary to food poisoning. Check stool enteric panel by PCR. Ordered: Initial Hospital Care/Day Moderate 55 Minutes 63036 5. CAD in [place] artery (I25.10: Atherosclerotic heart disease of [place] coronary artery without angina pectoris) Status post stent x 1. Stable. Aspirin suspended. Continue on isosorbide, metoprolol and statin. Ordered: Initial Hospital Care/Day Moderate 55 Minutes 29505 6. HLD (hyperlipidemia) (E78.2: Mixed hyperlipidemia) Continue on statin. Ordered: Initial Hospital Care/Day Moderate 55 Minutes 93137 7. Primary hypertension (I10: Essential (primary) hypertension) Continue on metoprolol and isosorbide. 8. TIA on medication (G45.9: Transient cerebral ischemic attack, unspecified) Historical. Aspirin temporarily on hold with above GI bleed. 9. Obese (E66.9: Obesity, unspecified) Recommend therapeutic lifestyle modification changes. 10. On deep vein thrombosis (DVT) prophylaxis (Z79.899: Other care home (current) drug therapy) Avoid heparin products with above GI bleed. SCDs. Disposition: The patient will be admitted under observation status with anticipation of staying less than 2 midnights in the hospital for the treatment of above upper gastrointestinal bleed/hematemesis, generalized weakness and diarrhea. I discussed the diagnosis and plan of care with the patient at the bedside. Moderate level of MDM based on addressing above issues. This documentation was transcribed using voice recognition software. Several attempts were made to ensure accuracy. However inadvertent computerized outside energy sales representatives errors may be present. Anai De Anda. Hospitalist. Orders: acetaminophen, 650 mg = 2 tab(s), Tab, Oral, q6hr PRN Pain, Routine, Start date 03/08/24 12:08:00 EDT, 03/08/24 12:08:00 EDT Al hydroxide/Mg hydroxide/simethicone, 30 mL, Susp-Oral, Oral, q6hr PRN Indigestion, Routine, Start date 03/08/24 12:08:00 EDT diphenhydrAMINE, 25 mg = 1 cap(s), Cap, Oral, q6hr PRN Itching, Routine, Start date 03/08/24 12:08:00 EDT, 03/08/24 12:08:00 EDT hydrALAZINE, 10 mg = 0.5 mL, Injection, IV Push, q6hr PRN Other (see comment), Routine, Start date 03/08/24 12:08:00 EDT, 03/08/24 12:08:00 EDT magnesium hydroxide, 30 mL, Susp-Oral, Oral, q6hr PRN Constipation, Routine, Start date 03/08/24 12:08:00 EDT morphine, 2 mg = 1 mL, Injection, IV Push, q4hr PRN Pain for 5 day(s), Stop date 03/13/24 12:07:00 EDT, Routine, Start date 03/08/24 12:08:00 EDT, 03/08/24 12:08:00 EDT ondansetron, 4 mg = 2 mL, Injection, IV Push, q6hr PRN Nausea, Routine, Start date 03/08/24 12:08:00 EDT, 03/08/24 12:08:00 EDT pantoprazole, 40 mg = 10 mL, Injection, IV Push, BID, Routine, Start date 03/08/24 21:00:00 EDT, 03/08/24 12:08:00 EDT zolpidem, 5 mg = 1 tab(s), Tab, Oral, Bedtime PRN Sleep, Routine, Start date 03/08/24 12:08:00 EDT, 03/08/24 12:08:00 EDT Cardiac Diet CBC w/ Auto Diff Consult to Gastroenterology NPO Diet Oxygen Protocol Place in Status Pulse Oximetry Up ad Ashley Vital Signs Weight Extracted from: Title:Consult Note Author:Jason DELONG, Honorio Perry te:03/08/24 78-year-old male with hemate mesis history of aspirin use 1. Weakness (R53.1: Weakness) 2. Hematemesis (K92.0: Hematemesis) EGD tomorrow morning okay for clear liquid diet today please avoid red dyes and please make patient n.p.o. after midnight 3. Diarrhea (R19.7: Diarrhea, unspecified) Extracted from: Title:ED Note Author:Meghan Palomo M.D. te:03/08/24 1. Weakness (R53.1: Weakness ) 2. Hematemesis (K92.0: Hematemesis) 3. Diarrhea (R19.7: Diarrhea, unspecified) Orders: pantoprazole, 40 mg = 10 mL, Injection, IV Push, Once, Stop date 03/08/24 7:46:00 EDT, STAT, Start date 03/08/24 7:46:00 EDT, Infuse over 2 minute(s), 03/08/24 7:46:00 EDT Sodium Chloride 0.9% intravenous solution, 1,000 mL, Soln-IV, IV, Once, Stop date 03/08/24 7:52:00 EDT, STAT, Start date 03/08/24 7:52:00 EDT, Infuse over 61, minute(s) ABO/Rh ABO/Rh History Check Antibody Screen Basic Metabolic Panel Blood Bank ID# CBC w/ Auto Diff eGFR Hepatic Function Panel Magnesium Level PT & PTT Stool Occult Blood Troponin Future Appointments Appointment Date:03/13/2024 03:00:00 PM Scheduled Provider:Betina Sampson MD Location:[facility] Appointment Type: Open Appointment Date:03/17/2024 01:40:00 PM Scheduled Provider:Honorio Gomez MD Location:[facility] Appointment Type:GS New 30 Appointment Date:03/20/2024 10:15:00 AM Scheduled Provider:Betina Sampson MD Location:[facility] Appointment Type:FM Open Appointment Date:07/08/2024 08:00:00 AM Scheduled Provider: Location:[facility] Appointment Type: Medicare Wellness Subsequent Appointment Date:12/26/2024 08:00:00 AM Scheduled Provider:Zachary ELAM MD Location:[facility] Appointment Type:URO Office Visit [facility]06-17-2024 Hospital Discharge instructions Patient Education 03/10/2024 10:11:49 Gastrointestinal Bleeding Gastrointestinal Bleeding Gastrointestinal (GI) bleeding is bleeding somewhere along the digestive tract, between the mouth and the anus. The digestive tract includes the mouth, esophagus, stomach, small intestine, large intestine, and anus. The large intestine is often called the colon. GI bleeding can be caused by various problems. The severity of these problems can be mild, serious,or life-threatening. If you have GI bleeding, you may find blood in your stools (feces), you may have black stools, or you may vomit blood. You may need to stay in the hospital if there is a lot of bleeding. What are the causes? This condition may be caused by: Inflammation, irritation, or swelling of the esophagus (esophagitis). The esophagus is part of the body that moves food from your mouth to your stomach. Swollen veins in the rectum (hemorrhoids). Tears in the anus (anal fissures). The tears are often caused by passing hard stool. Pouches that form on the colon and may bleed (diverticulosis). Inflammation in areas with diverticulosis. This is called diverticulitis.This can cause pain, fever, and bloody stools. Growths (polyps) or cancer. Colon cancer often starts out as precancerous polyps. Gastritis and ulcers. These may cause bleeding in the upper GI tract, near the stomach. What increases the risk? You are more likely to develop this condition if: You have an infection in your stomach from a type of bacteria called Helicobacter pylori. You take certain medicines, such as: ?NSAIDs. ?Aspirin. ?Selective serotonin reuptake inhibitors (SSRIs). ?Steroids. ?Antiplatelet or anticoagulant medicines. You smoke. You drink alcohol. What are the signs or symptoms? Common symptoms of this condition include: Bright red blood in your vomit, or vomit that looks like coffee grounds. Bloody, black, or tarry stools. ?Bleeding from the lower GI tract will usually cause red or maroon blood in the stools. ?Bleeding from the upper GI tract may cause black, tarry stools that are often stronger smelling than usual. ?In certain cases, if the bleeding is fast enough, the stools may be red. Pain or cramping in the abdomen. How is this diagnosed? This condition may be diagnosed based on: Your medical history and a physical exam. Various tests, such as: ?Blood tests. ?Stool tests. ?X-rays and other imaging tests. ?Esophagogastroduodenoscopy (EGD). In this test, a flexible, lighted tube is used to look at your esophagus, stomach, and small intestine. ?Colonoscopy. In this test, a flexible, lighted tube is used to look at your colon. How is this treated? Treatment for this condition depends on the cause of the bleeding. For example: For bleeding from the esophagus, stomach, small intestine, or colon, the health care provider may do a procedure to stop bleeding during your EGD or colonoscopy. Inflammation or infection of the colon can be treated with medicines. Certain rectal problems can be treated with creams, suppositories, or warm baths. Medicines may be given to reduce acid in your stomach. Surgery is sometimes done. Blood transfusions are sometimes needed if a lot of blood has been lost. If there is a lot of bleeding, you will need to stay in the hospital for observation. If bleeding is mild, you may be allowed to go home. Follow these instructions at home: Take xqai-wys-ehlzuiv and prescription medicines only as told by your health care provider. Eat foods that are high in fiber, such as beans, whole grains, and fresh fruits and vegetables. This will help to keep your stools soft. Eating 1 3 prunes each day works well for many people. Drink enough fluid to keep your urine pale yellow. Keep all follow-up visits. This is important. Contact a health care provider if: Your symptoms do not improve with treatment. Get help right away if: Your bleeding does not stop. You feel light-headed or you faint. You feel weak. You have severe cramps in your back or abdomen. You pass large blood clots in your stool. Your symptoms are getting worse. You have chest pain or fast heartbeats. These symptoms may be an emergency. Get help right away. Call 911. Do not wait to see if the symptoms will go away. Do not drive yourself to the hospital. Summary Gastrointestinal (GI) bleeding is bleeding somewhere along the digestive tract, between the mouth and anus. GI bleeding can be caused by various problems. Treatment for this condition depends on the cause of the bleeding. Take ttst-xyr-lmomsvc and prescription medicines only as told by your health care provider. Get help right away if your bleeding increases, your symptoms are getting worse, or you have new symptoms. Keep all follow-up visits. This is important. This information is not intended to replace advice given to you by your health care provider. Make sure you discuss any questions you have with your health care provider. Document Revised: 04/14/2022 Document Reviewed: 04/14/2022 [employer] Patient Education 2022 [employer]. 03/10/2024 10:11:43 Esophageal Cancer Esophageal Cancer Esophageal cancer is an abnormal growth of cancerous (malignant) cells in the part of the body thatmoves food and liquids from the mouth to the stomach (esophagus). What are the causes? The exact cause of esophageal cancer is not known. What increases the risk? The following factors may make you more likely to develop this condition: Being older than 55 years of age. Being of male gender. Using any tobacco products, including cigarettes, cigars, and chewing tobacco. Excessive alcohol use. The more alcohol you drink, the higher your risk. Eating a diet that is low in fruits and vegetables. Being overweight or obese. Having a damaged esophagus due to exposure to poisons (toxins). Having a history of other types of cancer. Having conditions that cause damage or irritation to the esophagus. These conditions include: ?Acid reflux. ?England's esophagus. ?Achalasia. ?Tylosis. ?Deisy Randal syndrome. ?HPV (human papillomavirus). What are the signs or symptoms? Symptoms may include: Difficulty swallowing. Chest or back pain. Unintentional weight loss, or losing weight without trying. Tiredness (fatigue). Hoarse voice. Coughing. This may include coughing up blood. Vomiting. This may include vomiting up blood. Hiccups. Stool (feces) that looks black or tarry due to bleeding into the esophagus. Bone pain. How is this diagnosed? This condition may be diagnosed based on: A physical exam and your medical history. A procedure in which a tube with a light and camera on the end of it (endoscope, bronchoscope, or laryngoscope) is used to examine your throat and esophagus. This can also be done to check if cancer has spread to other areas, such as the lungs. Tissue samples may be removed (biopsy) and examined for cancer cells. A procedure in which you swallow a solution called barium and then X-rays are done to evaluate the esophagus (barium swallow). The barium shows up well on X- rays, making it easier for your health care provider to see possible problems. Imaging tests such as X-rays, CT scans, PET scans, or MRI scan. If you are found to have cancer, it will be assessed (staged) to determine how severe it is and howmuch it has spread. How is this treated? Treatment for esophageal cancer depends on the type and stage of the cancer. Treatment may include one or more of the following: Surgery. Surgery may be done to: ?Remove small tumors within the esophagus. ?Remove part of the esophagus (esophagectomy). ?Remove part of the esophagus and the upper portion of the stomach (esophagogastrectomy). Medicines that kill cancer cells (chemotherapy). Radiation therapy, which involves the use of high-energy rays that kill cancer cells. Medicines that target specific parts of cancer cells and the area around them to block the growth and spread of the cancer. This is called targeted therapy and can help limit damage to healthy cells. Immunotherapy, which involves the use of medicines that help your body's disease-fighting system (immune system) fight the cancer cells. A procedure to remove part of the inner lining of the esophagus (endoscopic mucosal resection). A procedure in which you are given IV medicine and then an endoscope is used to shine a special type of light onto the esophagus to destroy the cancer cells. This is called photodynamic therapy. A procedure in which a small balloon is inflated in the esophagus (radiofrequency ablation). The balloon uses an electric current to heat and destroy the cells in the lining of the esophagus. Follow these instructions at home: Lifestyle Do not use any products that contain nicotine or tobacco. These products include cigarettes, chewing tobacco, and vaping devices, such as e-cigarettes. If you need help quitting, ask your health careprovider. Do not drink alcohol. General instructions Try to eat regular, healthy meals. Some of your treatments might affect your appetite and your ability to swallow. If you are having problems eating or if you do not have an appetite, meet with a dietitian. Take gqnj-zkn-oszhoee and prescription medicines only as told by your health care provider. Consider joining a support group for people who have been diagnosed with esophageal cancer. Work with your cancer care team to manage any side effects of treatment. Keep all follow-up visits. This is important. Where to find more information [place] [employer]: www.cancer.org National Cancer [place] (NCI): www.cancer.gov Contact a health care provider if: You have more problems swallowing or eating. You have new fatigue or weakness. You continue to lose weight unintentionally. You have a fever. Get help right away if: You have pain that suddenly gets worse. You have trouble breathing. You vomit blood or black material that looks like coffee grounds. You have black stools. You faint. Summary Esophageal cancer is an abnormal growth of cancerous (malignant) cells in the part of the body thatmoves food and liquids from the mouth to the stomach (esophagus). During diagnosis, a tube with a light and camera on the end of it (endoscope, bronchoscope, or laryngoscope) may be used to examine your throat and esophagus. Do not use any products that contain nicotine or tobacco. These products include cigarettes, chewing tobacco, and vaping devices, such as e-cigarettes. If you need help quitting, ask your health careprovider. Work with your cancer care team to understand treatment options and manage any side effects of treatment. This information is not intended to replace advice given to you by your health care provider. Make sure you discuss any questions you have with your health care provider. Document Revised: 09/07/2021 Document Reviewed: 09/07/2021 [employer] Patient Education 2022 [employer]. Follow Up Care 03/08/2024 07:25:18 With:Betina Sampson [facility], [facility] Address: [facility] [place] [address] Business (2) When:03/13/2024 15:00:00 Comments:Keep scheduled appointment With:JESUS Allen Address: [address], [address] [place] [address]- [phone] Apprion (1) When:03/17/2024 Comments:Keep scheduled appointment With:SPENCER Zapien Address: [facility] [address] [place] [address]- When:1 to 2 weeks Comments:Dr. Zapata office will call you with appointment time at [phone]. [facility]06-17-2024 NoteAdmission and Discharge Information Admitting Physician - Humble DE ANDA MD Consulting Physician - Honorio Gomez MD Admitting Diagnoses: Discharge Diagnoses 1. Hematemesis, 03/08/2024 2. Acute blood loss anemia, 03/08/2024 3. Esophagus cancer, 03/10/2024 4. Weakness, 03/08/2024 5. Diarrhea, 03/08/2024 6. CAD in [place] artery, 03/08/2024 7. HLD (hyperlipidemia), 03/08/2024 8. Primary hypertension, 03/08/2024 9. TIA on medication, 03/08/2024 10. Obese, 03/08/2024 12. On deep vein thrombosis (DVT) prophylaxis, 03/08/2024 Diarrhea, 03/08/2024 Vomiting, 03/08/2024 Weakness or fatigue, 03/08/2024 Procedure History Esophagogastroduodenoscopy (03/09/2024), Cystoscopic laser lithotripsy of ureteric calculus (05/24/2023), ESWL of kidney (05/03/2023), Cystoscopic insertion of ureteric stent (04/07/2023), Placement of stent in cardiac conduit (11/2017), Colonoscopy (2017), Carpal tunnel syndrome of left wrist, Carpal tunnel syndrome of right wrist, Kidney stone. Hospital Course 78-year-old male with hypertension, hyperlipidemia, coronary artery disease status post stent x 1 in 2021, obesity presented with complaints of vomiting blood x 3, weakness, diarrhea. He was subsequently admitted to [facility] with mild acute blood loss anemia secondary to hematemesis secondary to large esophageal mass and acute gastritis. He was seen by the gastroenterology/general surgeon and underwent EGD that showed large distal esophageal fungating mass?highly suspicious for cancer and biopsies were obtained. EGD also showed acute gastritis. He was treated with IV pantoprazole 40 mg twice daily and Carafate. His aspirin was temporarily suspended. CT scan chest, CT scanabdomen and pelvis with IV contrast were performed for tumor staging?results pending. Patient's overall condition improved and he was anxious to be discharged home. He was seen prior to discharge navid in an improved and stable condition for discharge and was subsequently discharged home on pantoprazole 40 mg twice daily, Carafate 1 g 4 times daily. He will follow- up with the general surgeon, oncologist and his primary care physician. Discharge time: 32 minutes. I spent 32 minutes in seeing, evaluating, educating patient on his conditions, coordinating care plan, medication reconciliation, speaking with consultants, nursing staff and case management. Services Consulted Consult to Gastroenterology - Ordered -- 03/08/24 12:08:00 EDT, Upper GI bleed, Consult and Co-manage Physical Exam Vitals & Measurements T: 36.6 ?C(Axillary) TMIN: 36.5 ?C(Temporal Artery) TMAX: 36.8 ?C(Oral) HR: 80(Apical) RR: 18 BP: 117/73 SpO2: 96% WT: 92.4 kg General: alert, no acute distress Skin: warm, dry Head: no trauma, normocephalic Neck: Trachea midline, no adenopathy, no tenderness Eye: normal conjunctiva, sclera clear ENMT: TM's clear, oral mucosa moist, no pharyngeal erythema or exudate Cardiovascular: regular rate and rhythm, normal peripheral perfusion Respiratory: Lungs CTA, respirations non labored Chest wall: no deformity. Gastrointestinal: soft, non distended, no tenderness, no guarding. Obese. Bowel sounds intact. Back: No tenderness, Normal ROM, Normal alignment. Extremities: no deformity, no trauma Neurological: oriented x 4, LOC appropriate for age, CN II-XII intact, motor strength equal & normal bilaterally, sensation equal & normal bilaterally, speech normal Psychiatric: cooperative, affect appropriate for age, normal judgement, normal psychiatric thoughts. Tests Performed CT Abdomen/Pelvis w/ Contrast -- Results Pending -- CT Chest w/ Contrast -- Results Pending -- Please visit your patient portal for your results or contact your primary care physician. Discharge Plan Patient Discharge Condition Stable. Discharge Disposition Discharge To, Anticipated II - Home with responsible caregiver Discharged to - Home independently Home. Discharge Diet Discharge Diet(s): Fat Modified- Low cholesterol, Low Sodium- 2000 mg (03/10/24 10:02:00) Discharge Medication List Prescriptions Carafate 1 gram Tab, 1 gm= 1 tab(s), Oral, QID isosorbide mononitrate 30 mg ER Tab, 30 mg= 1 tab(s), Oral, qAM Pantoprazole [address] Tab, 40 mg= 1 tab(s), Oral, BID Home Aspir 81, 81 mg, Oral, Daily D3, 125 mcg, Oral, Daily Lopressor, 50 mg (take one- half tablet), Oral, BID magnesium oxide, 420 mg, Oral, Once a day (at bedtime) simvastatin, 10 mg, Oral, Daily Follow-up With When Contact Information Terell Zapata Within 1 to 2 weeks [facility] [address] [place] [address]- Additional Instructions: Call for followup appointment Honorio Gomez Within 5 to 7 days [address], [facility] [address] [facility] [address] [place] [address]- [phone] Business (1) Additional Instructions: Call for followup appointment Betina Sampson Within 1 to 2 weeks [address] [place] [address]- Business (2) Additional Instructions: Andre (more content not included)...[facility]:Result Comment: Electronically Signed By: KRISH DELONG, Anai\.br\Date and Time Signed: 03/10/24 10:17 [id number] NoteChief Complaint diarrhea/emesis History of Present Illness 78-year-old male with hypertension, hyperlipidemia, coronary artery disease status post stent x 1-about 2 years ago, obesity, presented with complaints of vomiting blood x 2 since last night. According to the patient he was in his usual state of health until yesterday evening when he ate some hot dog. Since then he developed increased gas and abdominal gas pain. This was associated with burping, nausea and vomiting. He vomited twice and each time he vomited he saw blood in it. He also complainsof some diarrhea. He denies any blood in stool. He denies personal history of ulcers. He does complain of heartburn and gas pain whenever he eats hot dog. He takes aspirin for his heart. He does not take NSAIDs for pain. He takes [place] for pain. He is being admitted with hematemesis, weakness and diarrhea for further investigation. Review of Systems Constitutional: no fever, no chills, no sweats, mild weakness Skin: no Jaundice, no rash, no lesions, nopetechiae ENMT: no ear pain, no sore throat, no congestion, no hoarseness Respiratory: no shortness of breath, no cough, no orthopnea, no wheezing Cardiovascular: no chest pain, no palpitations, no edema Gastrointestinal: moderate nausea, moderate vomiting, no diarrhea, moderate GI bleeding Genitourinary: no dysuria, no hematuria, no discharge, no pain Musculoskeletal: no back pain, no trauma Neurologic: no headache, no dizziness, no numbness, mild weakness Psychiatric: no sleeping problems, no irritability, no mood swings/depression. Heme/Lymph: no bleeding tendency, no bruising tendency, no petechiae, no swollen nodes Allergy/Immunologic: no seasonal allergies, no food allergies, no recurrent infections, no impairedimmunity Additional ROS info: Except as noted in the above Review of Systems and in the History of Present Illness all other systems have been reviewed and are negative or noncontributory. Scoring Gonzalez Fall Risk Score: 30 (03/08/24) Physical Exam Vitals & Measurements T: 36.4 ?C(Oral) HR: 86(Peripheral) HR: 86(Apical) RR: 20 BP: 124/65 SpO2: 98% HT: 167.64 cm HT: 167.64 cm WT: 93.6 kg WT: 92.4 kg General: alert, no acute distress, comfortable in bed on room air. Skin: warm, dry Head: no trauma, normocephalic Neck: Trachea midline, no adenopathy, no tenderness Eye: normal conjunctiva, sclera clear ENMT: TM's clear, oral mucosa moist, no pharyngeal erythema or exudate Cardiovascular: regular rate and rhythm, normal peripheral perfusion Respiratory: Lungs CTA, respirations non labored Chest wall: no deformity. Gastrointestinal: soft, non distended, no tenderness, no guarding. Obese. Bowel sounds intact. Back: No tenderness, Normal ROM, Normal alignment. Extremities: no deformity, no trauma Neurological: oriented x 4, LOC appropriate for age, CN II-XII intact, motor strength equal & normal bilaterally, sensation equal & normal bilaterally, speech normal Psychiatric: cooperative, affect appropriate for age, normal judgement, normal psychiatric thoughts. Lab Results WBC: 9.7 E9/L (03/08/24 08:18:00) RBC: 4.2 E12/L Low (03/08/24 08:18:00) HGB: 13.2 gm/dL Low (03/08/24 08:18:00) Hct: 38.4 % (03/08/24 08:18:00) MCV: 91.7 fL (03/08/24 08:18:00) MCH: 31.5 pg (03/08/24 08:18:00) MCHC: 34.4 gm/dL (03/08/24 08:18:00) RDW: 13.6 % (03/08/24 08:18:00) Platelet: 175 E9/L (03/08/24 08:18:00) MPV: 8.2 fL (03/08/24 08:18:00) Neutro Auto: 83.2 % High (03/08/24 08:18:00) Lymph Auto: 10.2 % Low (03/08/24 08:18:00) [place] Auto: 5.9 % (03/08/24 08:18:00) Eos Auto: 0.1 % (03/08/24 08:18:00) Basophil Auto: 0.6 % (03/08/24 08:18:00) Neutro Absolute: 8.1 E9/L High (03/08/24 08:18:00) Lymph Absolute: 1 E9/L (03/08/24 08:18:00) [place] Absolute: 0.6 E9/L (03/08/24 08:18:00) Eos Absolute: 0 E9/L (03/08/24 08:18:00) Basophil Absolute: 0.1 E9/L (03/08/24 08:18:00) PT: 12.7 second(s) High (03/08/24 08:18:00) INR: 1.13 (03/08/24 08:18:00) PTT: 28.7 second(s) (03/08/24 08:18:00) Glucose Lvl: 143 mg/dL (03/08/24 08:18:00) BUN: 54 mg/dL High (03/08/24 08:18:00) Creatinine: 1.1 mg/dL (03/08/24 08:18:00) eGFR: 68 mL/min/1.73 m2 (03/08/24 08:18:00) BUN/Creat Ratio: 49 High (03/08/24 08:18:00) Sodium Lvl: 139 mmol/L (03/08/24 08:18:00) Potassium Lvl: 4.7 mmol/L (03/08/24 08:18:00) Chloride: 108 mmol/L (03/08/24 08:18:00) CO2: 24 mmol/L (03/08/24 08:18:00) AGAP: 12 mEq/L (03/08/24 08:18:00) Calcium Lvl: 9.1 mg/dL (03/08/24 08:18:00) Alk Phos: 43 Int._Unit/L (03/08/24 08:18:00) ALT: 19 Int._Unit/L (03/08/24 08:18:00) AST: 16 Int._Unit/L (03/08/24 08:18:00) Total Protein: 6 gm/dL (03/08/24 08:18:00) Albumin Lvl: 3.7 gm/dL (03/08/24 08:18:00) Globulin: 2.3 gm/dL (03/08/24 08:18:00) A/G Ratio: 1.6 (03/08/24 08:18:00) Bili Total: 0.6 mg/dL (03/08/24 08:18:00) Bili Direct: 0.1 mg/dL (03/08/24 08:18:00) Bili Indirect: 0.5 mg/dL (03/08/24 08:18:00) Magnesium: 2.2 mg/dL (03/08/24 08:18:0 (more content not included)...[facility]:Result Comment: Electronically Signed By: KRISH DELONG, Tyrelanefo\.br\Date and Time Signed: 03/08/24 12:12 [id number] NoteUT Cardiology - [facility] Subjective Jamaica Corrigan is a 78 y.o. year old male patient being seen for 6 mo follow up CAD, hypertension, and hyperlipidemia. Denies chest pain, palpitations, and lightheadedness/syncope. Still gets intermittent JASSO and fatigue. He was admitted to [facility] in Oct 2023 for Covid-19 and TIA. They did lipid while inpatient. Patient Active Problem List Diagnosis Coronary arteriosclerosis [...] disease (CMS/HCC) Subjective tinnitus Vitamin D deficiency COVID Encounter for other preprocedural examination Hospital discharge follow-up Polyp of colon Sciatica, left side TIA on medication Ureteral stone with hydronephrosis No family history on file. Social History [...] pressure about 195/104. He was seen in [facility] ED and D-Dimers were mildly elevated, [...] pulmonary embolism, moderate patchy infiltrates throughout the (more content not included)...[facility]03-29-2024 Hospital Discharge instructions Patient Education 12/21/2023 11:47:58 Dietary Guidelines to Help Prevent Kidney Stones Dietary Guidelines to Help Prevent Kidney Stones Kidney stones are deposits of minerals and salts that form inside your kidneys. Your risk of developing kidney stones may be greater depending on your diet, your lifestyle, the medicines you take, and whether you have certain medical conditions. Most people can lower their risks of developing kidney stones by following these dietary guidelines. Your dietitian may give you more specific instructions depending on your overall health and the type of kidney stones you tend to develop. What are tips for following this plan? Reading food labels Choose foods with no salt added or low-salt labels. Limit your salt (sodium) intake to less than 1,500 mg a day. Choose foods with calcium for each meal and snack. Try to eat about 300 mg of calcium at each meal.Foods that contain 200 500 mg of calcium a serving include: ?8 oz (237 mL) of milk, xxwdoxb-imrzmhmmicea-bdglb milk, and calcium- fortifiedfruit juice. Calcium-fortified means that calcium has been added to these drinks. ?8 oz (237 mL) of kefir, yogurt, and soy yogurt. ?4 oz (114 g) of tofu. ?1 oz (28 g) of cheese. ?1 cup (150 g) of dried figs. ?1 cup (91 g) of cooked broccoli. ?One 3 oz (85 g) can of sardines or mackerel. Most people need 1,000 1,500 mg of calcium a day. Talk to your dietitian about how much calcium is recommended for you. Shopping Buy plenty of fresh fruits and vegetables. Most people do not need to avoid fruits and vegetables, even if these foods contain nutrients that may contribute to kidney stones. When shopping for convenience foods, choose: ?Whole pieces of fruit. ?Pre-made salads with dressing on the side. ?Low-fat fruit and yogurt smoothies. Avoid buying frozen meals or prepared deli foods. These can be high in sodium. Look for foods with live cultures, such as yogurt and kefir. Choose high-fiber grains, such as whole-wheat breads, oat bran, and wheat cereals. Cooking Do not add salt to food when cooking. Place a salt shaker on the table and allow each person to addtheir own salt to taste. Use vegetable protein, such as beans, textured vegetable protein (TVP), or tofu, instead of meat inpasta, casseroles, and soups. Meal planning Eat less salt, if told by your dietitian. To do this: ?Avoid eating processed or pre-made food. ?Avoid eating fast food. Eat less animal protein, including cheese, meat, poultry, or fish, if told by your dietitian. To dothis: ?Limit the number of times you have meat, poultry, fish, or cheese each week. Eat a diet free of meat at least 2 days a week. ?Eat only one serving each day of meat, poultry, fish, or seafood. ?When you prepare animal proteins, cut pieces into small portion sizes. For most meat and fish, oneserving is about the size of the palm of your hand. Eat at least five servings of fresh fruits and vegetables each day. To do this: ?Keep fruits and vegetables on hand for snacks. ?Eat one piece of fruit or a handful of berries with breakfast. ?Have a salad and fruit at lunch. ?Have two kinds of vegetables at dinner. You may be told to limit foods that are high in a substance called oxalate. These include: ?Spinach (cooked), rhubarb, beets, sweet potatoes, and Malagasy chard. ?Peanuts. ?Potato chips, beninese fries, and baked potatoes with skin on. ?Nuts and nut products. ?Chocolate. If you regularly take a diuretic medicine, make sure to eat at least 1 or 2 servings of fruits or vegetables that are high in potassium each day. These include: ?Avocado. ?Banana. ?[place], prune, carrot, or tomato juice. ?Baked potato. ?Cabbage. ?Beans and split peas. Lifestyle Drink enough fluid to keep your urine pale yellow. This is the most important thing you can do. Spread your fluid intake throughout the day. If you drink alcohol: ?Limit how much you have to: ?0 1 drink a day for women who are not . ?0 2 drinks a day for men. ?Know how much alcohol is in your drink. In the [place] one drink equals one 12 oz bottle of beer (355 mL), one 5 oz glass of wine (148 mL), or one 1 oz glass of hard liquor (44 mL). Lose weight if told by your health care provider. Work with your dietitian to find an eating plan and weight loss strategies that work best for you. General information Talk to your health care provider and dietitian about taking daily supplements. Depending on your health and the cause of your kidney stones, you may be told: ?Do not take high-dose supplements of vitamin C (1,000 mg a day or more). ?To take a calcium supplement. ?To take a daily probiotic supplement. ?To take other supplements such as magnesium, fish oil, or vitamin B6. Take yrdo-hrw-gxxisiz and prescription medicines only as told by your health care provider. These include supplements. What foods should I limit? Limit your intake of the following foods, or eat them as told by your dietitian. Vegetables Spinach. Rhubarb. Beets. Canned vegetables. Pickles. Olives. Baked potatoes with skin. Grains Wheat bran. Baked goods. Salted crackers. Cereals high in sugar. Meats and other proteins Nuts. Nut butters. Large portions of meat, poultry, or fish. Salted, precooked, or cured meats, such as sausages, meat loaves, and hot dogs. Dairy Cheeses. Beverages Regular soft drinks. Regular vegetable juice. Seasonings and condiments Seasoning blends with salt. Salad dressings. Soy sauce. Ketchup. Barbecue sauce. Other foods Canned soups. Canned pasta sauce. Casseroles. Pizza. Lasagna. Frozen meals. Potato chips. Mosotho fries. The items listed above may not be a complete list of foods and beverages you should limit. Contact a dietitian for more information. What foods should I avoid? Talk to your dietitian about specific foods you should avoid based on the type of kidney stones youhave and your overall health. Fruits Grapefruit. The item listed above may not be a complete list of foods and beverages you should avoid. Contact adietitian for more information. Summary Kidney stones are deposits of minerals and salts that form inside your kidneys. You can lower your risk of kidney stones by making changes to your diet. The most important thing you can do is drink enough fluid. Drink enough fluid to keep your urine pale yellow. Talk to your dietitian about how much calcium you should have each day, and eat less salt and animal protein as told by your dietitian. This information is not intended to replace advice given to you by your health care provider. Make sure you discuss any questions you have with your health care provider. Document Revised: 12/21/2022 Document Reviewed: 12/21/2022 [employer] Patient Education 2022 [employer]. Follow Up Care 06/04/2023 12:34:52 With:PAPA DELONG, Zachary Meléndez, URL Address: [address] [place], [place] [id number]- When: Unknown [facility] [phone] Note [id number] 11-21-2023 [id number]11-15-2023 NoteUT Cardiology - [facility] Subjective Jamaica Corrigan is a 78 y.o. year old [...] pressure about 195/104. He was seen in [facility] ED and D-Dimers were mildly elevated, [...] is seen in fo (more content not included)...[facility]02-20-2023 Hospital Discharge instructions Patient Education 11/13/2022 09:06:48 [...] problems. It is used to check whether aperson is obese, overweight, healthy weight, or underweight. How is BMI calculated? BMI measures your weight and compares it to your height. This can be done either in Japanese ([place] or metric measurements. Note that charts are available to help you find your BMI quickly and easily without having to do these calculations yourself. To calculate your BMI in Japanese ([place] measurements, your health care provider will: [...] muscular build, such as an athlete, may havea BMI that is higher than 24.9. In cases like these, BMI is not an accurate measure of body fat. To determine if excess body fat is the cause of a BMI of 25 or higher, further assessments may needto be done by a health care provider. [...] medical problems. BMI can be measured using Japanese measurements or metric measurements. To interpret your [...] 05/22/2005 Document Revised: 08/23/2018 Document Reviewed: 07/24/2018 [employer] Patient Education 2019 [employer]. [facility] [place] 11-21-2022 Hospital Discharge instructions Patient Education 08/14/2022 11:55:30 [...] problems. It is used to check whether aperson is obese, overweight, healthy weight, or underweight. How is BMI calculated? BMI measures your weight and compares it to your height. This can be done either in Japanese ([place] or metric measurements. Note that charts are available to help you find your BMI quickly and easily without having to do these calculations yourself. To calculate your BMI in Japanese ([place] measurements, your health care provider will: [...] muscular build, such as an athlete, may havea BMI that is higher than 24.9. In cases like these, BMI is not an accurate measure of body fat. To determine if excess body fat is the cause of a BMI of 25 or higher, further assessments may needto be done by a health care provider. [...] medical problems. BMI can be measured using Japanese measurements or metric measurements. To interpret your [...] 05/22/2005 Document Revised: 08/23/2018 Document Reviewed: 07/24/2018 [employer] Patient Education 2019 [employer]. [facility] [employer] 07-28-2022 Hospital Discharge instructions Patient Education 04/20/2022 08:30:15 Heart Attack, Fxii-nq-Iqvy Heart Attack A heart attack occurs when blood and oxygen supply to the heart is cut off. A heart attack causes damage to the heart that cannot be fixed. A heart attack is also called a myocardial infarction, or CT. If you think you are having a heart attack, do not wait to see if the symptoms will go away. Get medical help right away. What are the causes? This condition may be caused by: A fatty substance (plaque) in the blood vessels (arteries). This can block the flow of blood to theheart. A blood clot in the blood vessels [...] Follow these instructions at home: Medicines Take lqlj-cqa-vahrzvt and prescription medicines only as told by [...] have nicotine or tobacco, such as cigarettes, e- cigarettes, and chewing tobacco. If you need help [...] 03/11/2013 Document Revised: 12/22/2019 Document Reviewed: 12/22/2019 [employer] Patient Education 2020 [employer] 04/20/2022 08:29:45 Atherosclerosis Atherosclerosis Atherosclerosis is narrowing and hardening of the arteries. Arteries are blood vessels that carry blood from the heart to all parts of the body. This blood contains oxygen. Arteries can become narrowor clogged with a buildup of fat, cholesterol, [...] further damage to the heart, brain, peripheral arteries,and kidneys. What are the causes? Atherosclerosis develops [...] (CRP). This is a sign of increased levelsof inflammation in the body. Sleep apnea. Being [...] health care provider or a diet and youth nutritional monitor (dietitian) if you need help. A heart-healthy [...] Do not abuse drugs. General instructions Take agqo-ymd-dfwgnqm and prescription medicines only as told by [...] to remember the main warning signs of astroke: ?B - Balance. Signs are dizziness, sudden trouble walking, or loss of balance. ?E - Eyes. Signs are trouble seeing or a sudden change in vision. ?F - Face. Signs are sudden weakness or numbness of the face, or the face or eyelid drooping on oneside. ?A - Arms. Signs are weakness or [...] symptoms, they are caused by damage to anarea of your body that is not getting enough blood. Treatment may include lifestyle changes and medicines. In some cases, surgery is needed. This information is not intended to replace advice given to you by your health care provider. Make sure you discuss any questions you have with your health care provider. Document Released: 11/30/2004 Document Revised: 12/20/2018 Document Reviewed: 05/16/2018 [employer] Patient Education 2020 [employer]. 04/20/2022 08:29:43 Angina Angina Angina is extreme [...] the buildup of fat and cholesterol (plaque) inyour arteries. The plaque may narrow or block [...] artery (angioplasty). A mesh tube may be placedin a coronary artery to keep it open (coronary stenting). Surgery to allow blood to go around a blocked artery (coronary artery bypass surgery). Follow these instructions at home: Medicines Take pyqh-mnr-xofcodm and prescription medicines only as told by [...] contain nicotine or tobacco, such as cigarettes, e- cigarettes, and chewing tobacco. If you need help [...] Take a depression screening test to see ifyou are at risk for depression. Work with [...] 09/10/2006 Document Revised: 04/28/2019 Document Reviewed: 04/28/2019 [employer] Patient Education 2020 [employer]. 04/20/2022 08:29:40 Obesity, Adult, Eexk-tu-Jyxi Obesity, Adult Obesity is having too much [...] food choices, such as grocery stores and amBX. What are the signs or symptoms? The [...] eat. ?How much exercise you get. Take jlij-csn-jtaxosf and prescription medicines only as told by [...] 12/02/2012 Document Revised: 05/15/2019 Document Reviewed: 05/15/2019 [employer] Patient Education 2020 [employer]. 04/20/2022 08:29:38 Hypertension, Adult Hypertension, Adult High [...] a heart attack, heart failure, a stroke, kidneydisease, and other problems. A blood pressure reading [...] on the floor. The cuff of the bloodpressure monitor will be placed directly against the [...] in sodium, added sugar, and fat. An exampleeating plan is called the DASH (Dietary Approaches [...] contain nicotine or tobacco, such as cigarettes, e- cigarettes, and chewing tobacco. If you need help quitting, ask your health care provider. Monitor your blood pressure at home as told by your health care provider. Keep all follow-up visits as told by your health care provider. This is important. Medicines Take ktju-osf-zrapnqt and prescription medicines only as told by your health care provider. Follow directions carefully. Blood pressure medicines must be taken as prescribed. Do not skip doses of blood pressure medicine. Doing this puts you at risk for problems and can makethe medicine less effective. Ask your health care [...] 09/10/2006 Document Revised: 05/21/2019 Document Reviewed: 05/21/2019 [employer] Patient Education 2020 [employer]. 04/20/2022 08:29:38 Heart Disease Prevention Heart Disease Prevention Heart disease is the leading cause of in the world. Coronary artery disease is the most common cause of heart disease. This condition results when cholesterol and other substances (plaque) build up inside the pearson of the blood vessels that supply your heart muscle (arteries). This buildup inarteries is called atherosclerosis. You can take actions [...] much sodium is safe for you. Most peopleshould have less than 2,300 mg each day. [...] of hard liquor (1 oz). Medicines Take mlnk-klh-ikipuvq and prescription medicines only as told by your health care provider. Ask your health care provider whether you should take an aspirin every day. Taking aspirin may helpreduce your risk of heart disease and stroke. [...] be needed if your blood pressure is higherthan 130/80. Have your blood pressure checked at least every two years. Your health care provider may check yourblood pressure more often if you have high [...] Centers for Disease Control and Prevention: www.cdc.gov/heartdisease [place] [employer]: www.heart.org ?Take a free online [...] 04/24/2005 Document Revised: 09/25/2018 Document Reviewed: 09/25/2018 [employer] Patient Education 2020 [employer] 04/20/2022 08:29:37 Exercising to Lose Weight Exercising to Lose Weight Exercise is structured, repetitive physical activity to improve fitness and health. Getting regularexercise is important for everyone. It is especially important if you are overweight. Being overweight increases your risk of heart disease, stroke, diabetes, high blood pressure, and several types of cancer. Reducing your calorie intake and exercising can help you lose weight. Exercise is usually categorized as moderate or vigorous intensity. To lose weight, most people needto do a certain amount of moderate-intensity or [...] you eat, you lose weight. Exercise also reducesbody fat and builds muscle. The more muscle [...] you need and what types of activities aresafe for you. What actions can I take to lose weight? Nutrition Make changes to your diet as told by your health care provider or diet and youth nutritional monitor (dietitian). This may include: ?Eating fewer calories. ?Eating more protein. ?Eating less unhealthy fats. ?Eating a diet that includes fresh fruits and vegetables, whole grains, low-fat dairy products, andlean protein. ?Avoiding foods with added fat, salt, [...] helpful as long structured periods of exercise. Ifyou have trouble finding time to exercise, try [...] 10/13/2011 Document Revised: 09/23/2018 Document Reviewed: 09/23/2018 [employer] Patient Education 2020 [employer]. 04/20/2022 08:29:36 BMI for Adults BMI for [...] problems. It is used to check whether aperson is obese, overweight, healthy weight, or underweight. How is BMI calculated? BMI measures your weight and compares it to your height. This can be done either in Japanese ([place] or metric measurements. Note that charts are available to help you find your BMI quickly and easily without having to do these calculations yourself. To calculate your BMI in Japanese ([place] measurements, your health care provider will: [...] muscular build, such as an athlete, may havea BMI that is higher than 24.9. In cases like these, BMI is not an accurate measure of body fat. To determine if excess body fat is the cause of a BMI of 25 or higher, further assessments may needto be done by a health care provider. [...] medical problems. BMI can be measured using Japanese measurements or metric measurements. To interpret your [...] 05/22/2005 Document Revised: 08/23/2018 Document Reviewed: 07/24/2018 [employer] Patient Education 2020 [employer]. [facility] Evaluation + Plan note Future Appointments Appointment Date:04/20/2022 08:00:00 AM Scheduled Provider: Location:[facility] Appointment Type: Medicare Wellness [place] Appointment Date:04/20/2022 09:00:00 AM Scheduled Provider:Betina Sampson MD Location[facility] Appointment Date:07/20/2022 09:20:00 AM Scheduled Provider:Betina Sampson MD Location:[facility] Appointment Type: Open Appointment Date:04/30/2023 08:00:00 AM Scheduled Provider: Location:[facility] Appointment Type:FM Medicare Wellness Subsequent [facility] evaluation + Plan note Future Appointments Appointment Date:11/13/2022 09:00:00 AM Scheduled Provider:Betina Sampson MD Location:[facility] Appointment Type:FM Open Appointment Date:04/30/2023 08:00:00 AM Scheduled Provider: Location:[facility] Appointment Type:FM Medicare Wellness Subsequent [facility] Evaluation + Plan note Future Appointments Appointment Date:04/30/2023 08:00:00 AM Scheduled Provider: Location:[facility] Appointment Type:FM Medicare Wellness Subsequent Appointment Date:05/14/2023 07:00:00 AM Scheduled Provider:Betina Sampson MD Location:[facility] Appointment Type:FM Open [facility] evaluation + Plan note Future Appointments Appointment Date:03/20/2024 10:15:00 AM Scheduled Provider:Betina Sampson MD Location:[facility] Appointment Type:FM Open Appointment Date:07/08/2024 08:00:00 AM Scheduled Provider: Location:[facility] Appointment Type: Medicare Wellness Subsequent Appointment Date:12/26/2024 08:00:00 AM Scheduled Provider:Zachary ELAM MD Location:[facility] Appointment Type:URO Office Visit [facility] evaluation + Plan note Future Appointments Appointment Date:03/20/2024 10:15:00 AM Scheduled Provider:Betina Sampson MD Location:[facility] Appointment Type:FM Open Appointment Date:03/24/2024 09:00:00 AM Scheduled Provider:Mallory Henry MD Location:.ONCOLOGY Appointment Type:ONC Office Visit [facility] (FT) Appointment Date:07/08/2024 08:00:00 AM Scheduled Provider: Location:[facility] Appointment Type: Medicare Wellness Subsequent Appointment Date:12/26/2024 08:00:00 AM Scheduled Provider:Zachary ELAM MD Location:[facility] [place] Appointment Type:URO Office Visit Future Scheduled Tests Radiology* NM PET w/ CT Scan Whole Body 03/17/24 [facility] [place] Evaluation + Plan note Future Appointments Appointment Date:04/04/2024 09:30:00 AM Scheduled Provider: Location:[facility] Appointment Type:Surgical PAT FT Appointment Date:04/16/2024 02:00:00 PM Scheduled Provider: Location:[facility] Appointment Type:Surgery FT Appointment Date:04/21/2024 04:15:00 PM Scheduled Provider:[facility] Open Appointment Date:07/08/2024 08:00:00 AM Scheduled Provider: Location:[facility] Appointment Type:FM Medicare Wellness Subsequent Appointment Date:12/26/2024 08:00:00 AM Scheduled Provider:Zachary ELAM MD Location:[facility]3][place] Appointment Type:URO Office Visit Future Scheduled Tests Radiology* NM PET w/ CT Scan Whole Body [facility] Future App[facility]ments Appointment Date:04/14/2024 03:00:00 PM Scheduled Provider: Location:.ONCOLOGY Appointment Type:ONC Patient Education - 1hr (FT) Appointment Date:04/15/2024 09:00:00 AM Scheduled Provider: Location:.ONCOLOGY Appointment Type:ONC Atez/Carbo/Etop (FT) Appointment Date:04/16/2024 12:00:00 PM Scheduled Provider: Location:[facility] Appointment Type:Surgery FT Appointment Date:04/17/2024 01:00:00 PM Scheduled Provider: Location:.ONCOLOGY Appointment Type:ONC Etoposide (FT) Appointment Date:04/18/2024 01:00:00 PM Scheduled Provider: Location:.ONCOLOGY Appointment Type:ONC Etoposide (FT) Appointment Date:04/21/2024 04:15:00 PM Scheduled Provider:Betina Sampson MD Location:[facility] [place] Appointment Type:FM Open Appointment Date:04/22/2024 08:30:00 AM Scheduled Provider:Zachary ELAM MD Location:[facility] Win Appointment Type:URO Procedure 15 min Appointment Date:04/22/2024 01:20:00 PM Scheduled Provider: Location:.ONCOL[facility]Y Appointment Type:ONC Lab Port (FT) Appointment Date:04/22/2024 01:40:00 PM Scheduled Provider:Mallory [facility] Type:ONC Office Visit 20 (FT) Appointment Date:07/08/2024 08:00:00 AM Scheduled Provider: Location:[facility] Appointment Type: Medicare Wellness Subsequent Appointment Date:12/26/2024 08:00:00 AM Scheduled Provider:Zachary ELAM MD [facility] Appointment Type:URO Office Visit Future Scheduled Tests Laboratory* Lab Miscellaneous-LC 04/04/24 * Serotonin Level 04/04/24 * CBC w/ Auto Diff 04/08/24 * Comprehensive Metabolic Panel 04/08/24 Radiology* NM PET w/ CT Scan Whole Body 03/17/24 * MRI Brain w/ + w/o Contrast [facility]04[facility] Future Appointments Appointment Date:04/15/2024 09:00:00 AM Scheduled Provider: Location:.ONCOLOGY Appointment Type:ONC Atez/Carbo/Etop (FT) Appointment Date:04/16/2024 12:00:00 PM Scheduled Provider: Location:[facility] Appointment Type:Surgery FT Appointment Date:04/17/2024 01:00:00 PM Scheduled Provider: Location:.ONCOLOGY Appointment Type:ONC Etoposide (FT) Appointment Date:04/18/2024 01:00:00 PM Scheduled [facility] Type:ONC Etoposide (FT) Appointment Date:04/21/2024 04:15:00 PM Scheduled Provider:Betina Sampson MD Location:[facility] Appointment Type: Open Appointment Date:04/22/2024 08:30:00 AM Scheduled Provider:Zachary ELAM MD Location:[facility] Win Appointment Type:URO Procedure 15 min Appointment Date:04/22/2024 01:20:00 PM Scheduled Provider: Location:.ONCOLOGY Appointment Type:ONC Lab Port (FT) Appointment Date:04/22/2024 01:40:00 PM Scheduled Provider:Mallory Henry MD Location:.[facility]COL[facility]Y Appointment Type:ONC Office Visit 20 (FT) Appointment Date:04/23/2024 01:00:00 PM Scheduled Provider:FABRICE MEMBRENO MD Location:.ONCOLOGY Appointment Type:ONC Supportive Care New (FT) Appointment Date:07/08/2024 08:00:00 AM Scheduled Provider: Location:[facility] Appointment Type: Medicare Wellness Subsequent Appointment Date:12/26/2024 08:00:00 AM Scheduled Provider:Zachary ELAM MD Location:[facility] Appointment Type:URO Office Visit Future Scheduled Tests Radiology* NM PET w/ CT Scan Whole Body [facility] Future App[facility]ments Appointment Date:04/15/2024 09:00:00 AM Scheduled Provider: Location:.[facility]COL[facility]Y Appointment Type:ONC Atez/Carbo/Etop (FT) Appointment Date:04/16/2024 12:00:00 PM Scheduled Provider: Location:[facility] Appointment Type:Surgery FT Appointment Date:04/17/2024 01:00:00 PM Scheduled Provider: Location:.[facility]COL[facility]Y Appointment Type:ONC Etoposide (FT) Appointment Date:04/18/2024 01:00:00 PM Scheduled Provider: Location:.ONCOL[facility]Y Appointment Type:ONC Etoposide (FT) Appointment Date:04/21/2024 04:15:00 PM Scheduled Provider:Betina Sampson MD Location:[facility] Appointment Type: Open Appointment Date:04/22/2024 08:30:00 AM Scheduled Provider:Zachary ELAM MD Location:[facility] Appointment Type:URO Procedure 15 min Appointment Date:04/22/2024 01:20:00 PM Scheduled Provider: Location:.ONCOLOGY Appointment Type:ONC Lab Port (FT) Appointment Date:04/22/2024 01:40:00 PM Scheduled Provider:Mallory Henry MD Location:.[facility]COL[facility] Appointment Type:ONC Office Visit 20 (FT) Appointment Date:04/23/2024 01:00:00 PM Scheduled Provider:FABRICE MEMBRENO MD Location:.[facility]COL[facility]Y Appointment Type:ONC Supportive Care New (FT) Appointment Date:07/08/2024 08:00:00 AM Scheduled Provider: Location:[facility] Appointment Type:FM Medicare Wellness Subsequent Appointment Date:12/26/2024 08:00:00 AM Scheduled Provider:Zachary ELAM MD Location:[facility] Appointment Type:URO Office Visit Diagnostic Tests Pending * Serotonin Level 04/14/24 Future Scheduled Tests Radiology* NM PET w/ CT Scan Whole Body [facility]17[facility] Future Appointments Appointment Date:04/16/2024 12:00:00 PM Scheduled Provider: Location:[facility] Appointment Type:Surgery FT Appointment Date:04/17/2024 01:00:00 PM Scheduled Provider: [facility] Type:ONC Etoposide (FT) Appointment Date:04/18/2024 01:00:00 PM Scheduled Provider: [facility] App[facility] Type:ONC Etoposide (FT) Appointment Date:04/21/2024 04:15:00 PM Scheduled Provider:Betina Sampson MD Location:[facility] Appointment Type:FM Open Appointment Date:04/22/2024 08:30:00 AM Scheduled Provider:Zachary ELAM MD Location:[facility] Appointment Type:URO Procedure 15 min Appointment Date:04/22/2024 01:20:00 PM Scheduled Provider: [facility] App[facility] Type:ONC Lab Port (FT) Appointment Date:04/22/2024 01:40:00 PM Scheduled Provider:Mallory Henry MD Location:.ONCOLOGY Appointment Type:ONC Office Visit 20 (FT) Appointment Date:04/23/2024 01:00:00 PM Scheduled Provider:FABRICE MEMBRENO MD [facility] App[facility] Type:ONC Supportive Care New (FT) Appointment Date:07/08/2024 08:00:00 AM Scheduled Provider: Location:[facility] Appointment Type: Medicare Wellness Subsequent Appointment Date:12/26/2024 08:00:00 AM Scheduled Provider:Zachary ELAM MD Location:[facility] Appointment Type:URO Office Visit Future Scheduled Tests Radiology* NM PET w/ CT Scan Whole Body [facility]17[facility] Future Appointments Appointment Date:04/18/2024 01:00:00 PM Scheduled Provider: Location:.ONCOLOGY Appointment Type:ONC Etoposide (FT) Appointment Date:04/21/2024 04:15:00 PM Scheduled Provider:[facility]: Open Appointment Date:04/22/2024 08:30:00 AM Scheduled Provider:Zachary ELAM MD Location[facility] Appointment Type:URO Procedure 15 min Appointment Date:04/22/2024 01:20:00 PM Scheduled Provider: Location:.ONCOLOGY Appointment Type:ONC Lab Port (FT) Appointment Date:04/22/2024 01:40:00 PM Scheduled Provider:Mallory Henry MD Location:.ONCOLOGY Appointment Type:ONC Office Visit 20 (FT) Appointment Date:04/23/2024 01:00:00 PM Scheduled Provider:FABRICE MEMBRENO MD Location:.ONCOLOGY Appointment Type:ONC Supportive Care New (FT) Appointment Date:07/08/2024 08:00:00 AM Scheduled Provider: Location:[facility] Appointment Type: Medicare Wellness Subsequent Appointment Date:12/26/2024 08:00:00 AM Scheduled Provider:Zachary ELAM MD Location:[facility]3][place] Appointment Type:URO Office Visit Future Scheduled Tests Radiology* NM PET w/ CT Scan Whole Body 03/17/24 [facility] Evaluation + Plan note Future Appointments Appointment Date:04/21/2024 04:15:00 PM Scheduled Provider:Bet[facility] Sampson MD [facility] Type: Open Appointment Date:04/22/2024 08:30:00 AM Scheduled Provider:Zachary ELAM MD Location:[facility] Win Appointment Type:URO Procedure 15 min Appointment Date:04/22/2024 01:20:00 PM Scheduled Provider: Location:.ONCOLOGY Appointment Type:ONC Lab Port (FT) Appointment Date:04/22/2024 01:40:00 PM Scheduled Provider:Mallory Henry MD Location:.ONCOLOGY Appointment Type:ONC Office Visit 20 (FT) Appointment Date:04/23/2024 01:00:00 PM Scheduled Provider:FABRICE MEMBRENO MD Location:.ONCOLOGY Appointment Type:ONC Supportive Care New (FT) Appointment Date:05/05/2024 02:30:00 PM Scheduled Provider: Location:.ONCOLOGY Appointment Type:ONC Lab Port (FT) Appointment Date:05/06/2024 10:00:00 AM Scheduled Provider: Location:.ONCOLOGY Appointment Type:ONC Atez/Carbo/Etop (FT) Appointment Date:05/07/2024 01:00:00 PM Scheduled Provider: Location:.ONCOLOGY Appointment Type:ONC Etoposide (FT) Appointment Date:05/08/2024 02:00:00 PM Scheduled Provider: Location:.ONCOLOGY Appointment Type:ONC Etoposide (FT) Appointment Date:07/08/2024 08:00:00 AM Scheduled Provider: Location:[facility] Appointment Type:FM Medicare Wellness Subsequent Appointment Date:12/26/2024 08:00:00 AM Scheduled Provider:Zachary ELAM MD Location:[facility] Appointment Type:URO Office Visit Future Scheduled Tests Radiology* NM PET w/ CT Scan Whole Body 03/17/24 [facility] Evaluation + Plan note Future Appointments Appointment Date:04/23/2024 01:00:00 PM Scheduled Provider:FABRICE MEMBRENO MD Location:.ONCOLOGY Appointment Type:ONC Supportive Care New (FT) Appointment Date:05/05/2024 02:30:00 PM Scheduled Provider: Location:.ONCOLOGY Appointment Type:ONC Lab Port (FT) Appointment Date:05/06/2024 10:20:00 AM Scheduled Provider:Mallory Henry MD Location:.ONCOLOGY Appointment Type:ONC Office Visit 20 (FT) Appointment Date:05/06/2024 11:00:00 AM Scheduled Provider: Location:.ONCOLOGY Appointment Type:ONC Atez/Carbo/Etop (FT) Appointment Date:05/07/2024 01:00:00 PM Scheduled Provider: Location:.ONCOLOGY Appointment Type:ONC Etoposide (FT) Appointment Date:05/08/2024 02:00:00 PM Scheduled Provider: Location:.ONCOLOGY Appointment Type:ONC Etoposide (FT) Appointment Date:07/08/2024 08:00:00 AM Scheduled Provider: [facility] Type:FM Medicare Wellness Subsequent Appointment Date:10/20/2024 10:15:00 AM Scheduled Provider:[facility] Open Appointment Date:12/26/2024 08:00:00 AM Scheduled Provider:Zachary ELAM MD Location:[facility] Appointment Type:URO Office Visit Future Scheduled Tests Laboratory* CBC w/ Auto Diff 04/29/24 * CBC w/ Auto Diff 05/06/24 * CBC w/ Auto Diff 05/13/24 * CBC w/ Auto Diff 05/20/24 * CBC w/ Auto Diff 05/27/24 * CBC w/ Auto Diff 06/03/24 * CBC w/ Auto Diff 06/10/24 * CBC w/ Auto Diff 06/17/24 * CBC w/ Auto Diff 06/24/24 * CBC w/ Auto Diff 07/01/24 * CBC w/ Auto Diff 07/08/24 * CBC w/ Auto Diff 07/15/24 * CBC w/ Auto Diff 07/22/24 * CBC w/ Auto Diff 07/29/24 * CBC w/ Auto Diff 08/05/24 * CBC w/ Auto Diff 08/12/24 * CBC w/ Auto Diff 08/19/24 * CBC w/ Auto Diff 08/26/24 * Comprehensive Metabolic Panel 04/29/24 * Comprehensive Metabolic Panel 05/06/24 * Comprehensive Metabolic Panel 05/13/24 * Comprehensive Metabolic Panel 05/20/24 * Comprehensive Metabolic Panel 05/27/24 * Comprehensive Metabolic Panel 06/03/24 * Comprehensive Metabolic Panel 06/10/24 * Comprehensive Metabolic Panel 06/17/24 * Comprehensive Metabolic Panel 06/24/24 * Comprehensive Metabolic Panel 07/01/24 * Comprehensive Metabolic Panel 07/08/24 * Comprehensive Metabolic Panel 07/15/24 * Comprehensive Metabolic Panel 07/22/24 * Comprehensive Metabolic Panel 07/29/24 * Comprehensive Metabolic Panel 08/05/24 * Comprehensive Metabolic Panel 08/12/24 * Comprehensive Metabolic Panel 08/19/24 * Comprehensive Metabolic Panel 08/26/24 Radiology* NM PET w/ CT Scan Whole Body 03/17/24 * CT Abdomen/Pelvis w/ Contrast 05/20/24 * CT Abdomen/Pelvis w/ Contrast 08/19/24 * CT Chest w/ Contrast 05/20/24 * CT Chest w/ Contrast 08/19/24 [facility] Evaluation + Plan note Future Appointments Appointment Date:05/05/2024 02:30:00 PM Scheduled Provider: Location:.ONCOLOGY Appointment Type:ONC Lab Port (FT) Appointment Date:05/06/2024 10:20:00 AM Scheduled Provider:Elaine DELONG, Mallory Michaels Location:.ONCOLOGY Appointment Type:ONC Office Visit 20 (FT) Appointment Date:05/06/2024 11:00:00 AM Scheduled Provider: Location:.ONCOLOGY Appointment Type:ONC Atez/Carbo/Etop (FT) Appointment Date:05/07/2024 01:00:00 PM Scheduled Provider: Location:.ONCOLOGY Appointment Type:ONC Etoposide (FT) Appointment Date:05/08/2024 02:00:00 PM Scheduled Provider: Location:.ONCOLOGY Appointment Type:ONC Etoposide (FT) Appointment Date:07/08/2024 08:00:00 AM Scheduled Provider: Location:[facility] Appointment Type:FM Medicare Wellness Subsequent Appointment Date:10/20/2024 10:15:00 AM Scheduled Provider:Betina Sampson MD Location:[facility] Appointment Type:FM Open Appointment Date:12/26/2024 08:00:00 AM Scheduled Provider:Zachary ELAM MD Location:[facility] Appointment Type:URO Office Visit Future Scheduled Tests Laboratory* CBC w/ Auto Diff 04/29/24 * CBC w/ Auto Diff 05/06/24 * CBC w/ Auto Diff 05/13/24 * CBC w/ Auto Diff 05/20/24 * CBC w/ Auto Diff 05/27/24 * CBC w/ Auto Diff 06/03/24 * CBC w/ Auto Diff 06/10/24 * CBC w/ Auto Diff 06/17/24 * CBC w/ Auto Diff 06/24/24 * CBC w/ Auto Diff 07/01/24 * CBC w/ Auto Diff 07/08/24 * CBC w/ Auto Diff 07/15/24 * CBC w/ Auto Diff 07/22/24 * CBC w/ Auto Diff 07/29/24 * CBC w/ Auto Diff 08/05/24 * CBC w/ Auto Diff 08/12/24 * CBC w/ Auto Diff 08/19/24 * CBC w/ Auto Diff 08/26/24 * CBC w/ Auto Diff 05/06/24 * Comprehensive Metabolic Panel 04/29/24 * Comprehensive Metabolic Panel 05/06/24 * Comprehensive Metabolic Panel 05/13/24 * Comprehensive Metabolic Panel 05/20/24 * Comprehensive Metabolic Panel 05/27/24 * Comprehensive Metabolic Panel 06/03/24 * Comprehensive Metabolic Panel 06/10/24 * Comprehensive Metabolic Panel 06/17/24 * Comprehensive Metabolic Panel 06/24/24 * Comprehensive Metabolic Panel 07/01/24 * Comprehensive Metabolic Panel 07/08/24 * Comprehensive Metabolic Panel 07/15/24 * Comprehensive Metabolic Panel 07/22/24 * Comprehensive Metabolic Panel 07/29/24 * Comprehensive Metabolic Panel 08/05/24 * Comprehensive Metabolic Panel 08/12/24 * Comprehensive Metabolic Panel 08/19/24 * Comprehensive Metabolic Panel 08/26/24 * Comprehensive Metabolic Panel 05/06/24 Radiology* NM PET w/ CT Scan Whole Body 03/17/24 * CT Abdomen/Pelvis w/ Contrast 05/20/24 * CT Abdomen/Pelvis w/ Contrast 08/19/24 * CT Chest w/ Contrast 05/20/24 * CT Chest w/ Contrast 08/19/24 [facility] Evaluation + Plan note Future Appointments Appointment Date:05/06/2024 10:20:00 AM Scheduled Provider:Elaine DELONG, Mallory Michaels [facility] Type:ONC Office Visit 20 (FT) Appointment Date:05/06/2024 11:00:00 AM Scheduled Provider: [facility] Appointment Type:ONC Carbo/SINGLE STAYER OPERATOR 16 (FT) Appointment Date:05/07/2024 01:00:00 PM Scheduled Provider: [facility] Appointment Type:ONC Etoposide (FT) Appointment Date:05/08/2024 02:00:00 PM Scheduled Provider: [facility] Appointment Type:ONC Etoposide (FT) Appointment Date:05/12/2024 07:45:00 AM Scheduled Provider:Betina Sampson MD Location:[facility] Appointment Type: Hospital Follow Up w/TCM Appointment Date:05/12/2024 02:00:00 PM Scheduled Provider: Location:.ONCOLOGY Appointment Type:ONC Lab Port (FT) Appointment Date:05/19/2024 02:30:00 PM Scheduled Provider: Location:.ONCOLOGY Appointment Type:ONC Lab Port (FT) Appointment Date:05/27/2024 02:00:00 PM Scheduled Provider: Location:.ONCOLOGY Appointment Type:ONC Lab Port (FT) Appointment Date:07/08/2024 08:00:00 AM Scheduled Provider: Location:[facility] Appointment Type:FM Medicare Wellness Subsequent Appointment Date:10/20/2024 10:15:00 AM Scheduled Provider:Betina Sampson MD Location:[facility] Appointment Type:FM Open Appointment Date:12/26/2024 08:00:00 AM Scheduled Provider:Zachary ELAM MD Location:[facility] Appointment Type:URO Office Visit Future Scheduled Tests Laboratory* CBC w/ Auto Diff 04/29/24 * CBC w/ Auto Diff 05/06/24 * CBC w/ Auto Diff 05/13/24 * CBC w/ Auto Diff 05/20/24 * CBC w/ Auto Diff 05/27/24 * CBC w/ Auto Diff 06/03/24 * CBC w/ Auto Diff 06/10/24 * CBC w/ Auto Diff 06/17/24 * CBC w/ Auto Diff 06/24/24 * CBC w/ Auto Diff 07/01/24 * CBC w/ Auto Diff 07/08/24 * CBC w/ Auto Diff 07/15/24 * CBC w/ Auto Diff 07/22/24 * CBC w/ Auto Diff 07/29/24 * CBC w/ Auto Diff 08/05/24 * CBC w/ Auto Diff 08/12/24 * CBC w/ Auto Diff 08/19/24 * CBC w/ Auto Diff 08/26/24 * Comprehensive Metabolic Panel 04/29/24 * Comprehensive Metabolic Panel 05/06/24 * Comprehensive Metabolic Panel 05/13/24 * Comprehensive Metabolic Panel 05/20/24 * Comprehensive Metabolic Panel 05/27/24 * Comprehensive Metabolic Panel 06/03/24 * Comprehensive Metabolic Panel 06/10/24 * Comprehensive Metabolic Panel 06/17/24 * Comprehensive Metabolic Panel 06/24/24 * Comprehensive Metabolic Panel 07/01/24 * Comprehensive Metabolic Panel 07/08/24 * Comprehensive Metabolic Panel 07/15/24 * Comprehensive Metabolic Panel 07/22/24 * Comprehensive Metabolic Panel 07/29/24 * Comprehensive Metabolic Panel 08/05/24 * Comprehensive Metabolic Panel 08/12/24 * Comprehensive Metabolic Panel 08/19/24 * Comprehensive Metabolic Panel 08/26/24 Radiology* NM PET w/ CT Scan Whole Body 03/17/24 * CT Abdomen/Pelvis w/ Contrast 05/20/24 * CT Abdomen/Pelvis w/ Contrast 08/19/24 * CT Chest w/ Contrast 05/20/24 * CT Chest w/ Contrast 08/19/24 [facility] Evaluation + Plan note Future Appointments Appointment Date:05/07/2024 01:00:00 PM Scheduled Provider: [facility] Appoint[facility] Type:ONC Etoposide (FT) Appointment Date:05/08/2024 02:00:00 PM Scheduled Provider: [facility] Appointment Type:ONC Etoposide (FT) Appointment Date:05/12/2024 07:45:00 AM Scheduled Provider:Betina Sampson MD Location:[facility] Appointment Type: Hospital Follow Up w/TCM Appointment Date:05/12/2024 02:00:00 PM Scheduled Provider: [facility] Appointment Type:ONC Lab Port (FT) Appointment Date:05/19/2024 02:30:00 PM Scheduled Provider: [facility] Appointment Type:ONC Lab Port (FT) Appointment Date:05/27/2024 02:00:00 PM Scheduled Provider: [facility] Appointment Type:ONC Lab Port (FT) Appointment Date:07/08/2024 08:00:00 AM Scheduled Provider: Location:[facility] Appointment Type: Medicare Wellness Subsequent Appointment Date:10/20/2024 10:15:00 AM Scheduled Provider:Betina Sampson MD Location:[facility] Appointment Type: Open Appointment Date:12/26/2024 08:00:00 AM Scheduled Provider:Zachary ELAM MD Location:[facility] Appointment Type:URO Office Visit Future Scheduled Tests Laboratory* CBC w/ Auto Diff 04/29/24 * CBC w/ Auto Diff 05/06/24 * CBC w/ Auto Diff 05/13/24 * CBC w/ Auto Diff 05/20/24 * CBC w/ Auto Diff 05/27/24 * CBC w/ Auto Diff 06/03/24 * CBC w/ Auto Diff 06/10/24 * CBC w/ Auto Diff 06/17/24 * CBC w/ Auto Diff 06/24/24 * CBC w/ Auto Diff 07/01/24 * CBC w/ Auto Diff 07/08/24 * CBC w/ Auto Diff 07/15/24 * CBC w/ Auto Diff 07/22/24 * CBC w/ Auto Diff 07/29/24 * CBC w/ Auto Diff 08/05/24 * CBC w/ Auto Diff 08/12/24 * CBC w/ Auto Diff 08/19/24 * CBC w/ Auto Diff 08/26/24 * Comprehensive Metabolic Panel 04/29/24 * Comprehensive Metabolic Panel 05/06/24 * Comprehensive Metabolic Panel 05/13/24 * Comprehensive Metabolic Panel 05/20/24 * Comprehensive Metabolic Panel 05/27/24 * Comprehensive Metabolic Panel 06/03/24 * Comprehensive Metabolic Panel 06/10/24 * Comprehensive Metabolic Panel 06/17/24 * Comprehensive Metabolic Panel 06/24/24 * Comprehensive Metabolic Panel 07/01/24 * Comprehensive Metabolic Panel 07/08/24 * Comprehensive Metabolic Panel 07/15/24 * Comprehensive Metabolic Panel 07/22/24 * Comprehensive Metabolic Panel 07/29/24 * Comprehensive Metabolic Panel 08/05/24 * Comprehensive Metabolic Panel 08/12/24 * Comprehensive Metabolic Panel 08/19/24 * Comprehensive Metabolic Panel 08/26/24 Radiology* NM PET w/ CT Scan Whole Body 03/17/24 * CT Abdomen/Pelvis w/ Contrast 05/20/24 * CT Abdomen/Pelvis w/ Contrast 08/19/24 * CT Chest w/ Contrast 05/20/24 * CT Chest w/ Contrast 08/19/24 [facility] Evaluation + Plan note Future Appointments Appointment Date:05/08/2024 02:00:00 PM Scheduled Provider: Location:[facility] Appointment Type:ONC Etoposide (FT) Appointment Date:05/08/2024 02:00:00 PM Scheduled Provider: Location:[facility] Appointment Type:ONC Misc Treatment (FT) Appointment Date:05/12/2024 07:45:00 AM Scheduled Provider:Betina Sampson MD Location:[facility] Appointment Type: Hospital Follow Up w/TCM Appointment Date:05/12/2024 02:00:00 PM Scheduled Provider: Location:.ONCOLOGY Appointment Type:ONC Lab Port (FT) Appointment Date:05/19/2024 02:30:00 PM Scheduled Provider: [facility] App[facility] Type:ONC Lab Port (FT) Appointment Date:05/27/2024 02:00:00 PM Scheduled Provider: [facility] Appoint[facility] Type:ONC Lab Port (FT) Appointment Date:07/08/2024 08:00:00 AM Scheduled Provider: Location:[facility] Appointment Type: Medicare Wellness Subsequent Appointment Date:10/20/2024 10:15:00 AM Scheduled Provider:Betina Sampson MD Location:[facility] Appointment Type: Open Appointment Date:12/26/2024 08:00:00 AM Scheduled Provider:Zachary ELAM MD Location:[facility] Appointment Type:URO Office Visit Future Scheduled Tests Laboratory* CBC w/ Auto Diff 04/29/24 * CBC w/ Auto Diff 05/06/24 * CBC w/ Auto Diff 05/13/24 * CBC w/ Auto Diff 05/20/24 * CBC w/ Auto Diff 05/27/24 * CBC w/ Auto Diff 06/03/24 * CBC w/ Auto Diff 06/10/24 * CBC w/ Auto Diff 06/17/24 * CBC w/ Auto Diff 06/24/24 * CBC w/ Auto Diff 07/01/24 * CBC w/ Auto Diff 07/08/24 * CBC w/ Auto Diff 07/15/24 * CBC w/ Auto Diff 07/22/24 * CBC w/ Auto Diff 07/29/24 * CBC w/ Auto Diff 08/05/24 * CBC w/ Auto Diff 08/12/24 * CBC w/ Auto Diff 08/19/24 * CBC w/ Auto Diff 08/26/24 * Comprehensive Metabolic Panel 04/29/24 * Comprehensive Metabolic Panel 05/06/24 * Comprehensive Metabolic Panel 05/13/24 * Comprehensive Metabolic Panel 05/20/24 * Comprehensive Metabolic Panel 05/27/24 * Comprehensive Metabolic Panel 06/03/24 * Comprehensive Metabolic Panel 06/10/24 * Comprehensive Metabolic Panel 06/17/24 * Comprehensive Metabolic Panel 06/24/24 * Comprehensive Metabolic Panel 07/01/24 * Comprehensive Metabolic Panel 07/08/24 * Comprehensive Metabolic Panel 07/15/24 * Comprehensive Metabolic Panel 07/22/24 * Comprehensive Metabolic Panel 07/29/24 * Comprehensive Metabolic Panel 08/05/24 * Comprehensive Metabolic Panel 08/12/24 * Comprehensive Metabolic Panel 08/19/24 * Comprehensive Metabolic Panel 08/26/24 Radiology* NM PET w/ CT Scan Whole Body 03/17/24 * CT Abdomen/Pelvis w/ Contrast 05/20/24 * CT Abdomen/Pelvis w/ Contrast 08/19/24 * CT Chest w/ Contrast 05/20/24 * CT Chest w/ Contrast 08/19/24 [facility] Evaluation + Plan note Future Appointments Appointment Date:05/12/2024 07:45:00 AM Scheduled Provider:Betina Sampson MD Location:[facility] Appointment Type: Hospital Follow Up w/TCM Appointment Date:05/12/2024 02:00:00 PM Scheduled Provider: Location:.ONCOLOGY Appointment Type:ONC Lab Port (FT) Appointment Date:05/19/2024 02:30:00 PM Scheduled Provider: Location:.ONCOLOGY Appointment Type:ONC Lab Port (FT) Appointment Date:05/27/2024 02:00:00 PM Scheduled Provider: Location:.ONCOLOGY Appointment Type:ONC Lab Port (FT) Appointment Date:05/28/2024 10:20:00 AM Scheduled Provider:Terell Zapata DO Location:.ONCOLOGY Appointment Type:ONC Office Visit 20 (FT) Appointment Date:05/28/2024 11:00:00 AM Scheduled Provider: Location:.ONCOLOGY Appointment Type:ONC Carbo/SINGLE STAYER OPERATOR 16 (FT) Appointment Date:05/29/2024 02:00:00 PM Scheduled Provider: Location:.ONCOLOGY Appointment Type:ONC Etoposide (FT) Appointment Date:05/30/2024 11:00:00 AM Scheduled Provider: Location:.ONCOLOGY Appointment Type:ONC Etoposide (FT) Appointment Date:07/08/2024 08:00:00 AM Scheduled Provider: Location:[facility] Appointment Type:FM Medicare Wellness Subsequent Appointment Date:10/20/2024 10:15:00 AM Scheduled Provider:Betina Sampson MD Location:[facility] Appointment Type:FM Open Appointment Date:12/26/2024 08:00:00 AM Scheduled Provider:Zachary ELAM MD Location:[facility] Appointment Type:URO Office Visit Future Scheduled Tests Laboratory* CBC w/ Auto Diff 04/29/24 * CBC w/ Auto Diff 05/06/24 * CBC w/ Auto Diff 05/13/24 * CBC w/ Auto Diff 05/20/24 * CBC w/ Auto Diff 05/27/24 * CBC w/ Auto Diff 06/03/24 * CBC w/ Auto Diff 06/10/24 * CBC w/ Auto Diff 06/17/24 * CBC w/ Auto Diff 06/24/24 * CBC w/ Auto Diff 07/01/24 * CBC w/ Auto Diff 07/08/24 * CBC w/ Auto Diff 07/15/24 * CBC w/ Auto Diff 07/22/24 * CBC w/ Auto Diff 07/29/24 * CBC w/ Auto Diff 08/05/24 * CBC w/ Auto Diff 08/12/24 * CBC w/ Auto Diff 08/19/24 * CBC w/ Auto Diff 08/26/24 * Comprehensive Metabolic Panel 04/29/24 * Comprehensive Metabolic Panel 05/06/24 * Comprehensive Metabolic Panel 05/13/24 * Comprehensive Metabolic Panel 05/20/24 * Comprehensive Metabolic Panel 05/27/24 * Comprehensive Metabolic Panel 06/03/24 * Comprehensive Metabolic Panel 06/10/24 * Comprehensive Metabolic Panel 06/17/24 * Comprehensive Metabolic Panel 06/24/24 * Comprehensive Metabolic Panel 07/01/24 * Comprehensive Metabolic Panel 07/08/24 * Comprehensive Metabolic Panel 07/15/24 * Comprehensive Metabolic Panel 07/22/24 * Comprehensive Metabolic Panel 07/29/24 * Comprehensive Metabolic Panel 08/05/24 * Comprehensive Metabolic Panel 08/12/24 * Comprehensive Metabolic Panel 08/19/24 * Comprehensive Metabolic Panel 08/26/24 Radiology* NM PET w/ CT Scan Whole Body 03/17/24 * CT Abdomen/Pelvis w/ Contrast 05/20/24 * CT Abdomen/Pelvis w/ Contrast 08/19/24 * CT Chest w/ Contrast 05/20/24 * CT Chest w/ Contrast 08/19/24 [facility] Evaluation + Plan note Future Appointments Appointment Date:05/19/2024 02:30:00 PM Scheduled Provider: Location:.ONCOLOGY Appointment Type:ONC Lab Port (FT) Appointment Date:05/27/2024 08:30:00 AM Scheduled Provider:Betina Sampson MD Location:[facility] Appointment Type:FM Open Appointment Date:05/27/2024 02:00:00 PM Scheduled Provider: Location:.ONCOLOGY Appointment Type:ONC Lab Port (FT) Appointment Date:05/28/2024 10:20:00 AM Scheduled Provider:Terell Zapata DO Location:.ONCOLOGY Appointment Type:ONC Office Visit 20 (FT) Appointment Date:05/28/2024 11:00:00 AM Scheduled Provider: Location:.ONCOLOGY Appointment Type:ONC Carbo/SINGLE STAYER OPERATOR 16 (FT) Appointment Date:05/29/2024 02:00:00 PM Scheduled Provider: Location:.ONCOLOGY Appointment Type:ONC Etoposide (FT) Appointment Date:05/30/2024 11:00:00 AM Scheduled Provider: Location:.ONCOLOGY Appointment Type:ONC Etoposide (FT) Appointment Date:07/08/2024 08:00:00 AM Scheduled Provider: Location:[facility] Appointment Type: Medicare Wellness Subsequent Appointment Date:10/20/2024 10:15:00 AM Scheduled Provider:Betina Sampson MD Location:[facility] Appointment Type: Open Appointment Date:12/26/2024 08:00:00 AM Scheduled Provider:Zachary ELAM MD Location:[facility] Appointment Type:URO Office Visit Future Scheduled Tests Laboratory* CBC w/ Auto Diff 04/29/24 * CBC w/ Auto Diff 05/06/24 * CBC w/ Auto Diff 05/20/24 * CBC w/ Auto Diff 05/27/24 * CBC w/ Auto Diff 06/03/24 * CBC w/ Auto Diff 06/10/24 * CBC w/ Auto Diff 06/17/24 * CBC w/ Auto Diff 06/24/24 * CBC w/ Auto Diff 07/01/24 * CBC w/ Auto Diff 07/08/24 * CBC w/ Auto Diff 07/15/24 * CBC w/ Auto Diff 07/22/24 * CBC w/ Auto Diff 07/29/24 * CBC w/ Auto Diff 08/05/24 * CBC w/ Auto Diff 08/12/24 * CBC w/ Auto Diff 08/19/24 * CBC w/ Auto Diff 08/26/24 * Comprehensive Metabolic Panel 04/29/24 * Comprehensive Metabolic Panel 05/06/24 * Comprehensive Metabolic Panel 05/20/24 * Comprehensive Metabolic Panel 05/27/24 * Comprehensive Metabolic Panel 06/03/24 * Comprehensive Metabolic Panel 06/10/24 * Comprehensive Metabolic Panel 06/17/24 * Comprehensive Metabolic Panel 06/24/24 * Comprehensive Metabolic Panel 07/01/24 * Comprehensive Metabolic Panel 07/08/24 * Comprehensive Metabolic Panel 07/15/24 * Comprehensive Metabolic Panel 07/22/24 * Comprehensive Metabolic Panel 07/29/24 * Comprehensive Metabolic Panel 08/05/24 * Comprehensive Metabolic Panel 08/12/24 * Comprehensive Metabolic Panel 08/19/24 * Comprehensive Metabolic Panel 08/26/24 Radiology* NM PET w/ CT Scan Whole Body 03/17/24 * CT Abdomen/Pelvis w/ Contrast 05/20/24 * CT Abdomen/Pelvis w/ Contrast 08/19/24 * CT Chest w/ Contrast 05/20/24 * CT Chest w/ Contrast 08/19/24 [facility] Evaluation noteNo assessment information available [facility] Work Phone: Evaluation note* Diagnosis Onset Date Resolution Status Esophageal cancer acute [facility] Work Phone: Hospital course Narrative No data available for this section [facility] No data available for this section [facility] No data available for this section [facility] [place] Progress note Author Kaur Austin [facility] April 21, 2024 9:45am Note Date/Time April 21, 2024 9:03 am [facility] [place] [address] Cancer Center Note Signed Patient: Jamaica Corrigan MR#: [id number] : 1945 Acct:[id number] Age/Sex: 78 / M Type: REG AMB Date of Service: 04/21/24 Copies to: MD Betina Mcghee MD~ Assessment & Plan (1) Esophageal cancer: Plan: Continue systemic therapy with medical oncology at [facility] Assessment: 78-year-old male with 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 We reviewed his PET in detail which shows metastatic disease in the liver, lymph nodes as well as adrenal glands. There is also concerning lesion in the posterior body of T2 as well as mild uptake in T3 however patient is currently asymptomatic. He also had a brain MRI and I am not sure what the indication was. Patient denies any neurologic symptoms currently. We discussed the implications of stage IV disease and the need for systemic therapy. Patient understands that his disease is treatable however not curable. We discussed the option of palliative radiation 8 Aleman x 1 to T2 and T3. Currently patient is asymptomatic and they were counseled that his chemotherapy may resolve uptake in the bone. Should this lesion persist or he becomes symptomatic we are happy to see him back for palliative radiation. In the interim he will continue with medical oncology at [facility]. History of Present Illness HPI 78-year-old male who presented to the ED vomiting blood. Oncologic history: March 09, 2024 EGD showed a large fungating esophageal mass at the GE junction. Mass extended from 35 to 41 cm from the incisors. 50% of the circumference of the esophagus. Mild antral gastritis. Biopsy shows poorly differentiated carcinoma with extensive tumor necrosis. Antral biopsy showed antral type gastric mucosa with mild chronic inactive gastritis. March 10, 2024 CT of the chest abdomen pelvis showed a lesion of the distal esophagus/GE junction measuring 3 cm most concerning for malignancy. 1.5 cm hypodense lesion within segment 4B of the liver concerning for malignancy. Prostate mildly enlarged. Posterior bladder wall lesion versus prostate nodule indenting upon the urinary bladder. Colonic diverticulosis with diverticulitis. March 26, 2024 PET shows a segment of distal esophageal thickening 5.5 cm in length with increased FDG uptake with a maximum SUV of 7.4. There is osseous FDG uptake in some of the thoracic vertebra greatest at the posterior aspect of T2 with an SUV of 4.7 there is a subtle sclerotic area at that site. Hypermetabolic hepatic lesions involving the left lobe near the gallbladder SUV approaching 7. Slight uptake at both adrenal glands SUV just below 3. There frank small gastrohepatic ligament and precaval lymph node with slight increased FDGuptake with SUV just over 2. Additional subtle areas of patchy increased osseous uptake involving the spine and sacrum. Indeterminate findings involvingboth the testis and prostate with uptake in the bilateral testis. March 31 MRI of the abdomen shows enlarging and developing hepatic metastatic lesions. Largest is in the posterior aspect of the left lower liver measuring 3.8 cm over mildly prominent nodes adjacent to the gastric cardia noted. Patient presents today with his . He states he started chemotherapy last week and received 3 days. He had a port placed. States he tolerated this well. Also reports having undergone a brain MRI April 14, 2024 which was negative. His is able to show me that report. Currently he is tolerating p.o. intakewithout issue. He has no pain. He is scheduled to meet with palliative care next week at [facility]. Intake Vitals/Pain Assessment 04/21/24 08:58 Height 5 ft 6 in Weight 90.718 kg BMI 32.3 Body Fat % 51.61 BP 114/67 Blood Pressure Location Lt brachial Position Sitting Temp 97.8 F Temp Source Temporal Pulse 57 L Pulse Source NIBP Respiration 16 Pulse Oximetry (%) 99 Oxygen Delivery Method room air Are you having pain? No Intake Visit Reasons: NEW GE Junction Mass, new patient Allergies No Known Allergies Allergy (Verified 04/21/24 08:59) - Last Reconciled 04/21/24 by Gloria Benitez cholecalciferol (vitamin D3) (Vitamin D3) 500 mg PO DAILY magnesium hydroxide 400 mg PO DAILY PRN metoprolol tartrate 25 mg PO BID ondansetron 8 mg PO Q12HR pantoprazole 40 mg PO DAILY prochlorperazine maleate 10 mg PO BID PRN simvastatin 40 mg PO DAILY sucralfate 1 g PO BID Gastrointestinal Is the patient taking opioids for pain control?: No Falls Fall Precaution Measures Taken: Patient in chair Nurse's Note: Patient is here today as a new patient Dr. Dickinson patient for New GE junction mass [facility] Medical History Medical History (Updated 04/18/24 @ 13:20 by Kaur Austin MD) Esophageal cancer Carpal tunnel syndrome of left wrist Problem List clean-up per request of Phys. EHR Cmte Hyperlipidemia Problem List clean-up per request of Phys. EHR Cmte Hypertension Problem List clean-up per request of Phys. EHR Cmte CAD (coronary artery disease) Problem List clean-up per request of Phys. EHR Cmte Surgical History Surgical History (Updated 09/05/23 @ 14:46 by [employer] [facility]) History of PTCA 2018 Problem List clean-up per request of Phys. EHR Cmte Family History Family History Father Diabetes Social History Social History (Updated 04/21/24 @ 09:03 by Gloria Benitez) Smoking status: Never smoker Within the past year, how often did you have a drink containing alcohol: never AUDIT-C Alcohol total score: 0 AUDIT-C Alcohol score interpretation: A score less than 4 is consistent with normal alcohol consumption. In the past 12 months, have you used illegal drugs or prescription drugs for non-medical reasons?: No Physical Exam EXAM Physical Exam KPS 90 General: alert male, hard of hearing, hearing aids in place in no acute distress HEENT: normocephalic, extra ocular movements intact Lungs: normal work of breathing on room air Abdomen: non acute, obese MSK: extremities within normal limits. No tenderness to palpation along the cervical or thoracic spine. Neuro: Strength 5 out of 5 at shoulders, no paresthesias of the upper extremity. Results - Cancer Ctr (Rad Onc) LAB RESULTS No Data to Display Dictated By: Kaur Austin MD DD/ 4 Signed By: <Electronically signed by Kaur Austin MD> 04/21/24944 [facility] Work Phone: Reason for referral (narrative) , Referral to radiation oncology (Dr. Austin/[facility]) for evaluation and recommendation. Dr. Henry would like patient seen soon, order was faxed to [facility] for MRI Liver and PET. Referred by: Elaine DELONG, fahad Michaels [facility] Summary Purpose Family History No Family History Records Found Relationship Condition Age at Onset Recorded Date/T gopi father Diabetes mellitus Unknown Advance Directives No Advanced Directives Records Found Advance Directive Response Recorded Date/ Time Advance Directives No July 3:19pm Chief Complaint and Reason for Visit Chief Complaint c15.5 hypodense lesi on liver Chief Complaint c15.5 hypodense lesi on liver GE junction mass NEW GE Junction Mass Reason for Visit Esophageal cancer Additional Source Comments (unrecognized sect ion and [...] and content) DATE CREATED AUTHOR 09/02/2018 [facility] DATE CREATED AUTHOR AUTHOR'S ORGANIZ ATION 10/04/2022 [facility] DATE CREATED AUTHOR AUTHOR'S ORGANIZ ATION 03/09/2024 [facility] DATE CREATED AUTHOR AUTHOR'S ORGANIZ ATION 03/09/2024 [facility] DATE CREATED AUTHOR AUTHOR'S ORGANIZ ATION 03/10/2024 [facility] DATE CREATED AUTHOR AUTHOR'S ORGANIZ ATION 03/13/2024 [facility] DATE CREATED AUTHOR AUTHOR'S ORGANIZ ATION 03/19/2024 [facility] DATE CREATED AUTHOR AUTHOR'S ORGANIZ ATION 04/13/2024 [facility] DATE CREATED AUTHOR AUTHOR'S ORGANIZ ATION 04/17/2024 [facility] DATE CREATED AUTHOR AUTHOR'S ORGANIZ ATION 04/24/2024 [facility] DATE CREATED AUTHOR AUTHOR'S ORGANIZ ATION 04/25/2024 [facility] DATE CREATED AUTHOR AUTHOR'S ORGANIZ ATION 04/26/2024 [facility] DATE CREATED AUTHOR AUTHOR'S ORGANIZ ATION 04/29/2024 [facility] DATE CREATED AUTHOR AUTHOR'S ORGANIZ ATION 04/30/2024 [facility] DATE CREATED AUTHOR AUTHOR'S ORGANIZ ATION 05/01/2024 [facility] DATE CREATED AUTHOR AUTHOR'S ORGANIZ ATION 05/02/2024 [facility] DATE CREATED AUTHOR AUTHOR'S ORGANIZ ATION 05/03/2024 [facility] DATE CREATED AUTHOR AUTHOR'S ORGANIZ ATION 05/05/2024 [facility] DATE CREATED AUTHOR AUTHOR'S ORGANIZ ATION 05/06/2024 [facility] DATE CREATED AUTHOR AUTHOR'S ORGANIZ ATION 05/07/2024 [facility] DATE CREATED AUTHOR AUTHOR'S ORGANIZ ATION 05/13/2024 [facility] DATE CREATED AUTHOR AUTHOR'S ORGANIZ ATION 05/14/2024 [facility] DATE CREATED AUTHOR AUTHOR'S ORGANIZ ATION 05/16/2024 [facility] Care Team (unrecognized sect ion and content) Team Status: Active Member Role Status Dates Betina Sampson MD Primary Care Provider Active Team Status: Inactive Member Role Status Dates Betina Sampson MD Primary Care Provider Active Start: March 26, 2024 End: March 26, 2024 Mallory ALDANA MD Attending Provider Ac tive Start: March 26, 2024 End: March 26, 2024 Team Status: Active Member Role Status Dates Betina Sampson MD Primary Care Provider Active Start: April 21, 2024 Kaur Austin MD Attending Provider Active Start: April 21, 2024 Mallory ALDANA MD Referring Provider Ac tive Start: April 21, 2024 Team Status: Inactive Member Role Status Dates Betina Sampson MD Primary Care Provider Active Start: April 21, 2024 End: April 21, 2024 Kaur Austin MD Attending Provider Active Start: April 21, 2024 End: April 21, 2024 Mallory ALDANA MD Referring Provider Ac tive Start: April 21, 2024 End: April 21, 2024 Goals (unrecognized section and content) Goals may be documented in a n alternate section FOR RECORDS PERTAINING TO PATIENTS WHO ARE [...] BE BASED ON THE PRIMARY CLINICAL RECORDS. [employer] provides no warranty or guarantee of the accuracy or completeness of information in this document.
[2024-05-19] MEDS: REGADENOSON 0.4 MG/5 ML SYRINGE IV (09:46)
--- NOTE | 2024-05-19 09:47 | PC.NURSE ---
Nursing Note Cardiac Stress Test Reviewed: Medication, allergies and patient history reviewed. Stress Test: [x ] Patient tolerated stress test well. [ ] Patient unable to tolerate walking on treadmill. Switched to Lexiscan stress test. [x ] No chest pain noted per patient [ ] Chest pain that resolved prior to leaving stress lab. [x ] No dyspnea noted. [ ] Dyspnea that resolved prior to leaving stress lab. [x ] Patient left stress lab asymptomatic and hemodynamically stable. [ ] Patient taken to the Emergency Room due to non-resolving symptoms following stress test. [ ] Patient achieved target heart rate. [ ] Patient unable to achieve target heart rate. [ ] Aminophylline administered as reversal agent to Lexiscan (Regadenoson). [ ] Nitro administered. Nursing Comments: Patient had a 22 gauge in the right hand that was utilized for the injection of the lexiscan and cardiolyte administration and was removed by [employer] [place] prior to leaving the stress lab. Patient has no complaints of shortness of breath, or chest pain and reports feeling back to his baseline prior to leaving the room.
== END 2024-05-19 06:51 | disposition home or self-care (01) ==
LOC: NM 06:50
PROVIDERS: PCP Family Medicine; Visit Provider Internal Medicine Interventional Cardiology
DX: R06.09 Other forms of dyspnea (principal)
CPT/HCPCS: 78452; 93017; A9500; J2785